=== PATIENT | male | born 1935 | race Caucasian/White ===

== ENCOUNTER 2017-12-19 13:26 | Outpatient (RCR) | payer MEDICARE, BC, SELFPAY | END 2018-02-09 13:05 | disposition home or self-care (01) | LOC: PT 13:26 | PROVIDERS: Family Provider Internal Medicine | DX: Z95.5 Presence of coronary angioplasty implant and graft (principal) | CPT/HCPCS: 93798 ==

== ENCOUNTER → 2018-04-17 09:50 | Outpatient (CLI) | payer MEDICARE, BC, SELFPAY ==
[2018-04-17 10:06] LABS: Basophils # 0.1 K/mm3 (0-0.2); Basophils % 0.9 % (0.1-2.0); Eosinophils # 0.3 K/mm3 (0.0-0.4); Eosinophils % 4.6 % (0.1-12.0); Hematocrit 41.6 % (42.0-52.0); Hemoglobin 13.4 g/dL (14.1-18.0); Lymphocytes # 1.1 K/mm3 (0.7-4.5); Lymphocytes % 17.1 K/mm3 (10-50); Mean Corpuscular HGB Conc 32.1 g/dL (31.8-35.4); Mean Corpuscular Volume 93.4 fl (80-94); Mean Platelet Volume 7.8 fl (7.4-10.4); Monocytes # 0.4 K/mm3 (0.1-1.0); Monocytes % 5.5 % (1.7-9.3); Neutrophils # 4.7 K/mm3 (1.8-7.8); Neutrophils % 71.9 % (37.0-80.0); Platelet Count 199 K/mm3 (142-424); Red Blood Count 4.45 M/mm3 (4.60-6.20); White Blood Count 6.6 K/mm3 (4.8-10.8)
--- NOTE | 2018-04-17 10:19 | XR_ITS ---
XR chest 2V HISTORY: Shortness of air, smoker ITS.REASON: SOB, CP, ASCAD ORDERING PHYSICIAN: Raul Capone PATIENT AGE: 82 years COMPARISON: 08/12/2016 FINDINGS: The cardiomediastinal silhouette and pulmonary vascularity are within normal limits. Cardiac bipolar pacemaker remains in place The lungs are clear without infiltrates, suspicious nodules, or pleural effusions. There is ankylosis of the thoracic spine No acute bony abnormalities. IMPRESSION: No change with no acute finding
[2018-04-17 10:21] LABS: Anion Gap 15.9 mEq/L (5-15); Blood Urea Nitrogen 28 mg/dL (7-18); Calcium 9.6 mg/dL (8.5-10.1); Carbon Dioxide 24 mmol/L (21.0-32.0); Chloride 104 mmol/L (98-107); Creatinine,Serum 2.23 mg/dL (0.70-1.30); Estimated Glomerular Filt Rate 28 ml/min (>60); GFR (African American) 34 ML/MIN (>60); Glucose 189 mg/dL (74-106); Potassium 4.9 mmoL/L (3.5-5.1); Sodium 139 mmol/L (136-145); Troponin I < 0.02 ng/ml (0.00-0.06)
== END ==
PROVIDERS: PCP Internal Medicine; Visit Provider Internal Medicine
DX: R06.02 Shortness of breath (principal); R07.9 Chest pain, unspecified; I25.10 Atherosclerotic heart disease of native coronary artery without angina pectoris
CPT/HCPCS: 36415; 71046; 80048; 83880; 84484; 85025; 93005

== ENCOUNTER → 2018-07-06 14:21 | Outpatient (CLI) | payer MEDICARE, BC, SELFPAY ==
--- NOTE | 2018-07-06 14:30 | XR_ITS ---
XR chest 2V HISTORY: ITS.REASON: COUGH, SOB,WEAKNESS, DM II ORDERING PHYSICIAN: Raul Capone PATIENT AGE: 82 years COMPARISON: 04/17/2018 FINDINGS: The cardiomediastinal silhouette and pulmonary vascularity are within normal limits. Bipolar pacemaker is present from left subclavian approach. Lungs are clear bilaterally. There is ankylosis of the thoracic spine.. IMPRESSION: No acute finding
[2018-07-06 14:38] LABS: Basophils # 0.1 K/mm3 (0-0.2); Basophils % 1.1 % (0.1-2.0); Eosinophils # 0.3 K/mm3 (0.0-0.4); Eosinophils % 5.2 % (0.1-12.0); Hematocrit 25.3 % (42.0-52.0); Lymphocytes # 1.1 K/mm3 (0.7-4.5); Lymphocytes % 20.1 % (10-50); Mean Corpuscular HGB Conc 30.7 g/dL (31.8-35.4); Mean Corpuscular Hemoglobin 29.8 pg (27.0-31.2); Mean Corpuscular Volume 97.3 fl (80-94); Mean Platelet Volume 8.9 fl (7.4-10.4); Monocytes # 0.4 K/mm3 (0.1-1.0); Monocytes % 7.3 % (1.7-9.3); Neutrophils # 3.7 K/mm3 (1.8-7.8); Neutrophils % 66.2 % (37.0-80.0); Platelet Count 224 K/mm3 (142-424); Red Cell Distribution Width 16.9 % (11.5-17.5); White Blood Count 5.6 K/mm3 (4.8-10.8)
[2018-07-06 14:41] LABS: Hemoglobin 7.7 g/dL (14.1-18.0)
[2018-07-06 15:16] LABS: Alanine Aminotransferase 31 U/L (12-78); Albumin Level 3.8 gm/dL (3.4-5.0); Albumin/Globulin Ratio 1.1 (1.1-1.8); Alkaline Phosphatase 76 U/L (46-116); Anion Gap 17.1 mEq/L (5-15); Aspartate Amino Transferase 21 U/L (15-37); Bilirubin,Total 0.7 mg/dL (0.2-1.0); Blood Urea Nitrogen 33 mg/dL (7-18); Calcium 8.8 mg/dL (8.5-10.1); Carbon Dioxide 21 mmol/L (21.0-32.0); Chloride 106 mmol/L (98-107); Creatinine,Serum 2.13 mg/dL (0.70-1.30); Estimated Glomerular Filt Rate 30 ml/min (>60); GFR (African American) 36 ML/MIN (>60); Globulin 3.5 gm/dl (1.3-3.2); Glucose 162 mg/dL (74-106); Potassium 4.1 mmoL/L (3.5-5.1); Sodium 140 mmol/L (136-145); Total Protein,Serum 7.3 gm/dL (6.4-8.2)
[2018-07-06 15:17] LABS: Troponin I 0.65 ng/ml (0.00-0.06)
== END ==
PROVIDERS: Visit Provider Internal Medicine
DX: D64.9 Anemia, unspecified (principal)
CPT/HCPCS: 36415; 71046; 80053; 84484; 85025; 86850; 93005; P9016

== ENCOUNTER 2018-07-06 15:37 | Observation (INO) ==
--- NOTE | 2018-07-06 15:44 | Emergency Department Note ---
ED Disposition Clinical Impression: Blood loss anemia, Upper gastrointestinal hemorrhage, Elevated troponin Disposition: Still a Patient Condition on Discharge: Serious Referrals: Raul Capone [Primary Care Provider] - - Critical Care Critical Care Time: No Attestation: On 07/06/18, the high probability of a clinically significant, sudden or life threatening deterioration of the following system(s) required my full and direct attention, intervention and personal management. The time I documented below is in addition to time spent performing reported procedures but includes the following listed in this critical care notation. Medical Decision Making - Matthew Inquiry Pt receiving controlled substance: No Vital Signs: 07/06/18 15:37 07/06/18 16:14 Temperature 98.0 F Temperature Source Oral Pulse Rate [Apical] 73 85 Respiratory Rate 20 20 Blood Pressure [Right Arm] 143/70 H 131/69 Blood Pressure Mean [Right Arm] 94 89 Blood Pressure Source [Right Arm] Automatic Cuff Automatic Cuff Blood Pressure Position [Right Arm] Sitting Sitting 02 Sat by Pulse Oximetry 100 100 Oxygen Delivery Method Room Air Room Air - Lab Data Lab Results 07/06/18 16:15: Stool Occult Blood Positive A Orders (Tests/Meds): ED MEDICATIONS Discontinued Medications Generic Name Dose Route Start Last Admin Trade Name Freq PRN Reason Stop Dose Admin Pantoprazole Sodium 40 mg 07/06/18 17:14 07/06/18 17:15 Protonix 40mg Vial IV 07/06/18 17:15 40 mg ONCE ONE Administration Sodium Chloride 8 ml 07/06/18 17:14 07/06/18 17:15 Saline Flush 10ml Syringe IV 07/06/18 17:15 8 ml ONCE ONE Administration ORDERS Category Date Time Status Occult Blood,Stool Stat Lab 07/06/18 16:15 Ordered - ECG Data Tracing #1 EKG interpreted by Deonte Fletcher MD: Rhythm: Ventricular paced rhythm Rate: 79 No evidence of acute ischemia or injury - Physician Consults Physician Consulted: Bryon Time: 16:10 Reason -: Cardiology Eval/Care Comment/Response: Feels that the patient has troponin leak from stress from anemia. He would not plan any cardiac intervention. Patient had a cardiac cath last summer that showed occlusion of his distal LAD. Recommends holding Xarelto and Brilinta and treating with aspirin only for now. Would be fine with patient being transferred to [facility] prior to transfusion since he is hemodynamically stable with respect to vital signs and blood loss is likely chronic. Discussed with patient. He would prefer to stay here since cardiac intervention is not planned. Additional Consult: Char Time: 17:10 Reason -: Admission Comment/Response: Agrees to admit the patient to the hospital. We discussed the patient's clinical information, including history, exam, laboratory and radiology results and ED course. Per hospital procedure, I will write temporary bridge inpatient orders on the patient. Specific orders requested by the admitting physician: Type and crossmatch for 2 units, but transfuse 1 unit. Consult surgery. Additional Consult: Jose Alfredo Time: 17:20 Reason -: Surgical Eval/Care Comment/Response: Will consult. Protonix twice daily. Timing of endoscopy will depend on his response to transfusion. General Adult HPI - General Stated complaint: elevated troponin Time Seen by Provider: 07/06/18 15:44 - History of Present Illness HPI narrative: Sent from Dr. Capone's office for elevated troponin and low hemoglobin. Patient has not been feeling well for 1 week. He has exertional dyspnea, fatigue, and jaw pain. No pain or dyspnea at rest. Black looking stool for 1 week. No vomiting of blood. No current chest pain. He has coronary artery disease, atrial fibrillation, pacemaker, stent placement. Dedicated Truck Driver is Dr. Qiu at [facility] and he wants him involved as soon as possible. He is on Brilinta and Xarelto. - Related Data Home Medications Medication Instructions Recorded Confirmed Amlodipine Besylate [Amlodipine 10 mg PO DAILY 07/06/18 07/06/18 10mg Tab] Carvedilol [Carvedilol 12.5mg Tab] 12.5 mg PO BID 07/06/18 07/06/18 Multivit-Min/FA/Lycopen/Lutein 1 each PO DAILY 07/06/18 07/06/18 [Centrum Silver Tablet] Niacin (Inositol Niacinate) 1,000 mg PO HS 07/06/18 07/06/18 [Niacin Flush Free 500 mg Cap] [place]-3S/Dha/Epa/Fish Oil [Fish 2 each PO BID 07/06/18 07/06/18 Oil 1,000 mg Softgel] Polyethylene Glycol 3350 [Miralax 17 gm PO DAILY 07/06/18 07/06/18 Powder] Rivaroxaban [Xarelto 15mg tablet] 15 mg PO HS 07/06/18 07/06/18 Rosuvastatin Calcium 10 mg PO HS 07/06/18 07/06/18 Ticagrelor [Brilinta 90mg Tablet] 90 mg PO BID 07/06/18 07/06/18 glipiZIDE [Glipizide ER] 5 mg PO DAILY 07/06/18 07/06/18 Allergies Allergy/AdvReac Type Severity Reaction Status Date / Time penicillin G [PENICILLIN G] Allergy Mild Verified 07/06/18 15:49 [facility] History - Hepatitis A Screen Attestation statement:: This patient has been screened for Hepatitis A risk factors. I have reviewed the patient's past medical history: Yes ROS Obtained: Yes All systems reviewed & no additional complaints - Constitutional Constitutional: Reports fatigue - Respiratory Respiratory: Yes dyspnea on exertion - Gastrointestinal Gastrointestingal: Reports: change in stool character. Denies: abdominal pain Physical Exam - General General appearance: alert, in no apparent distress - Head Head exam: atraumatic, normocephalic - Eye Eye exam: Present: normal appearance, PERRL, EOMI - ENT ENT exam: Present: mucous membranes moist - Neck Neck exam: Present: normal inspection, trachea midline - Chest Chest inspection: Present: normal inspection, symmetric chest wall rise - Respiratory Respiratory exam: Present: normal lung sounds bilaterally. Absent: respiratory distress - Cardiovascular Cardiovascular exam: Present: regular rate, normal rhythm, normal heart sounds - Abdominal Exam Abdominal exam: Present: soft. Absent: distention, tenderness, guarding - Rectal Exam comment: Dark stool - Extremities Exam Extremities exam: Present: normal inspection - Neurological Exam Neurological exam: Present: alert, oriented X3 - Psychiatric Psychiatric exam: Present: normal affect, normal mood - Skin Skin exam: Present: warm, dry, pallor
--- NOTE | 2018-07-06 18:15 | History & Physical Report ---
*Admission Date: 07/06/18 *Chief complaint: SOA, anemia *History of present illness: Mr. Ny is an 82-year-old male who presented to the ER after seeing his primary care doctor today. He next saw Dr. Capone in his office where the patient had lab obtained due to complaint of shortness of breath worse over the past week. Patient noted to have elevated troponin and anemia. Additionally guaiac stool was obtained and found to be positive. Patient has had some referred pains in his jaw and fatigue. No dyspnea at rest, symptoms resolved with rest. Denies any vomiting, hematemesis, hematochezia, active chest pain on admission. Does have significant history of coronary artery disease complicated by A. fib, pacemaker, stent placements. On Brilinta and Xarelto. Sees Dr. Frederick for cardiology and the patient asked he be involved in his care. Cardiology and surgery consulted while still in the ED. Patient was typed and screened, transfusion initiated. Started on Protonix. Brilinta and Xarelto held. Otherwise hemodynamically stable. [facility] History Medical History: Reports:: Diabetes Mellitus Type 2 Denies:: Diabetes Mellitus Type 1 - *Social History Smoking Status: Current every day smoker Tobacco Type: cigarettes Alcohol Intake: never Travel in the last 8 weeks: None - Psychiatric History Expresses thoughts of harming self/others: None Suicide Plan Description: No Plan Meds Home Medications Medication Instructions Recorded Confirmed Type Amlodipine Besylate [Amlodipine 10 mg PO DAILY 07/06/18 07/06/18 History 10mg Tab] Carvedilol [Carvedilol 12.5mg Tab] 12.5 mg PO BID 07/06/18 07/06/18 History Multivit-Min/FA/Lycopen/Lutein 1 each PO DAILY 07/06/18 07/06/18 History [Centrum Silver Tablet] Niacin (Inositol Niacinate) 1,000 mg PO HS 07/06/18 07/06/18 History [Niacin Flush Free 500 mg Cap] [place]-3S/Dha/Epa/Fish Oil [Fish 2 each PO BID 07/06/18 07/06/18 History Oil 1,000 mg Softgel] Polyethylene Glycol 3350 [Miralax 17 gm PO DAILY 07/06/18 07/06/18 History Powder] Rivaroxaban [Xarelto 15mg tablet] 15 mg PO HS 07/06/18 07/06/18 History Rosuvastatin Calcium 10 mg PO HS 07/06/18 07/06/18 History Ticagrelor [Brilinta 90mg Tablet] 90 mg PO BID 07/06/18 07/06/18 History glipiZIDE [Glipizide ER] 5 mg PO DAILY 07/06/18 07/06/18 History Allergies Allergy/AdvReac Type Severity Reaction Status Date / Time penicillin G [PENICILLIN G] Allergy Mild Verified 07/06/18 15:49 Exam Vital signs and Labs for Last 24 Hours: Temp Pulse Resp BP Pulse Ox 97.7 F 74 18 127/70 99 07/06/18 18:10 07/06/18 18:10 07/06/18 18:10 07/06/18 18:10 07/06/18 18:10 Laboratory Results - last 24 hr 07/06/18 16:15: Stool Occult Blood Positive A I & O for Last 24 hours: Intake & Output 07/03/18 07/04/18 07/05/18 07/06/18 23:59 23:59 23:59 23:59 Intake Total 0 / 0 Balance 0 / 0 Weight 96.162 kg
--- NOTE | 2018-07-06 18:55 | History & Physical Report ---
*Admission Date: 07/06/18 *Chief complaint: Dyspnea with exertion *History of present illness: Mr. Ny is an 82-year-old male who presented to the ER after seeing his primary care doctor today. He next saw Dr. Capone in his office where the patient had lab obtained due to complaint of shortness of breath worse over the past week. Patient noted to have elevated troponin and anemia. Additionally guaiac stool was obtained and found to be positive. Patient has had some referred pains in his jaw and fatigue. No dyspnea at rest, symptoms resolved with rest. Denies any vomiting, hematemesis, hematochezia, active chest pain on admission. Does have significant history of coronary artery disease complicated by A. fib, pacemaker, stent placements. On Brilinta and Xarelto. Sees Dr. Frederick for cardiology and the patient asked he be involved in his care. Cardiology and surgery consulted while still in the ED. Patient was typed and screened, transfusion initiated. Started on Protonix. Brilinta and Xarelto held. Otherwise hemodynamically stable. [facility] History I have reviewed the patient's past medical history: Yes Medical History: Reports:: Atrial Fibrillation, Diabetes Mellitus Type 2, Hypertension, Internal Pacemaker Denies:: Cancer, Diabetes Mellitus Type 1, MRSA Have you ever received a pneumonia vaccine?: Yes Have you received a flu vaccine this season?: Yes Other Medical History: Reports: Anemia Other Surgeries: Yes: Coronary Stent, Pacemaker Amputation: No Fractures: No - *Social History Smoking Status: Current every day smoker Tobacco Type: cigarettes Alcohol Intake: never Occupational Status: retired Housing: house Travel in the last 8 weeks: None - Psychiatric History Expresses thoughts of harming self/others: None Suicide Plan Description: No Plan Review of Systems - Review of Systems Review of systems:: pertinent systems reviewed and negative unless documented below Meds Home Medications Medication Instructions Recorded Confirmed Type Amlodipine Besylate [Amlodipine 10 mg PO DAILY 07/06/18 07/06/18 History 10mg Tab] Carvedilol [Carvedilol 12.5mg Tab] 12.5 mg PO BID 07/06/18 07/06/18 History Hydrocodone/Acetaminophen 1 each PO TID PRN 07/06/18 07/06/18 History [Hydrocodon-Acetaminoph 7.5-325] Multivit-Min/FA/Lycopen/Lutein 1 each PO DAILY 07/06/18 07/06/18 History [Centrum Silver Tablet] Niacin (Inositol Niacinate) 1,000 mg PO HS 07/06/18 07/06/18 History [Niacin Flush Free 500 mg Cap] [place]-3S/Dha/Epa/Fish Oil [Fish 2 each PO BID 07/06/18 07/06/18 History Oil 1,000 mg Softgel] Polyethylene Glycol 3350 [Miralax 17 gm PO DAILY 07/06/18 07/06/18 History Powder] Rivaroxaban [Xarelto 15mg tablet] 15 mg PO HS 07/06/18 07/06/18 History Rosuvastatin Calcium 10 mg PO HS 07/06/18 07/06/18 History Ticagrelor [Brilinta 90mg Tablet] 90 mg PO BID 07/06/18 07/06/18 History glipiZIDE [Glipizide ER] 5 mg PO DAILY 07/06/18 07/06/18 History Allergies Allergy/AdvReac Type Severity Reaction Status Date / Time penicillin G [PENICILLIN G] Allergy Mild Verified 07/06/18 15:49 Exam Vital signs and Labs for Last 24 Hours: Temp Pulse Resp BP Pulse Ox 97.3 F L 75 18 139/71 100 07/06/18 18:35 07/06/18 18:35 07/06/18 18:35 07/06/18 18:35 07/06/18 18:35 Laboratory Results - last 24 hr 07/06/18 16:15: Stool Occult Blood Positive A I & O for Last 24 hours: Intake & Output 07/03/18 07/04/18 07/05/18 07/06/18 23:59 23:59 23:59 23:59 Intake Total 0 / 0 Balance 0 / 0 Weight 97.154 kg - *Routine HEENT Exam Head: Present: normocephalic, atraumatic Eye: Present: EOMI, PERRL ENT: Present: mucous membranes moist, dentition normal - *Routine Neck Exam Present: supple, full ROM. Absent: JVD, lymphadenopathy - *Routine Respiratory Exam Present: CTA bilaterally. Absent: rales, wheezes, crackles - *Routine Cardiovascular Exam Present: RRR. Absent: murmur Comments: Paced rhythm - *Routine Abdominal Exam Present: soft, normoactive bowel sounds. Absent: tenderness - *Routine Rectal Exam Patient deferred: visual exam - *Routine Exam Patient deferred: penile exam - *Routine Extremities Exam Present: pulses intact, normal capillary refill. Absent: cyanosis, clubbing, edema - *Routine Skin Exam Present: intact. Absent: cyanosis, erythema - *Routine Neurological Exam Present: alert, oriented X3. Absent: altered mental status - Routine Psychiatric Exam Present: normal affect Assessment and Plan (1) Gastrointestinal bleeding Current visit: Yes Status: Acute Category: Medical Code(s): K92.2 - Gastrointestinal hemorrhage, unspecified (2) Coronary artery disease Current visit: Yes Status: Chronic Qualifiers: Coronary Disease-Associated Artery/Lesion type: [place] artery [place] vs. transplanted heart: [place] heart Associated angina: with stable angina Qualified Code(s): I25.118 - Atherosclerotic heart disease of [place] coronary artery with other forms of angina pectoris Category: Medical Code(s): I25.10 - Atherosclerotic heart disease of [place] coronary artery without angina pectoris (3) Pacemaker-dependent due to [place] cardiac rhythm insufficient to support life Current visit: Yes Status: Chronic Category: Medical Code(s): I49.8 - Other specified cardiac arrhythmias; Z95.0 - Presence of cardiac pacemaker Present on admission. (4) Atrial fibrillation Current visit: Yes Status: Chronic Qualifiers: Atrial fibrillation type: chronic Qualified Code(s): I48.2 - Chronic atrial fibrillation Category: Medical Code(s): I48.91 - Unspecified atrial fibrillation Stable. Present on admission (5) Blood loss anemia Current visit: Yes Status: Acute Category: Medical Code(s): D50.0 - Iron deficiency anemia secondary to blood loss (chronic) Unknown source though suspect GI. Patient on antiplatelet therapy and Xarelto. Reportedly had hemoglobin in the 12's early May. Surgery consulted. Holding Xarelto and Brilinta. Plan for EGD in the coming days. -Transfused 1 unit, crossmatched 1 additional. Posttransfusion H&H pending. -Goal 8.5-9 for hemoglobin (6) Elevated troponin Current visit: Yes Status: Acute Category: Medical Code(s): R74.8 - Abnormal levels of other serum enzymes Type II NSTEMI due to anemia. Serial troponin stable -Repeat troponin if patient becomes symptomatic -Suspect improvement after transfusion - Assessment and plan all Dx Assessment and Plan for all problems:: 82-year-old male with elevated troponins due to anemia and supply demand mismatch. Anemia suspected to be from a GI bleed, likely slow. Currently being transfused. Started Protonix. Holding blood thinners. Surgery consulted. Monitor on telemetry. Condition guarded. Requiring inpatient management at this time for symptom treatment and further workup.
[2018-07-06 21:09] LABS: Hemoglobin 7.7 g/dL (14.1-18.0)
[2018-07-06 21:10] LABS: Hematocrit 24.1 % (42.0-52.0)
[2018-07-07 02:58] LABS: Hemoglobin 8.7 g/dL (14.1-18.0)
[2018-07-07 02:59] LABS: Hematocrit 26.2 % (42.0-52.0)
[2018-07-07 06:41] LABS: Basophils # 0.1 K/mm3 (0-0.2); Eosinophils # 0.2 K/mm3 (0.0-0.4); Eosinophils % 4.3 % (0.1-12.0); Hematocrit 27.6 % (42.0-52.0); Lymphocytes % 19.7 % (10-50); Mean Corpuscular HGB Conc 32.6 g/dL (31.8-35.4); Mean Corpuscular Hemoglobin 29.9 pg (27.0-31.2); Mean Corpuscular Volume 91.8 fl (80-94); Mean Platelet Volume 8.5 fl (7.4-10.4); Monocytes # 0.4 K/mm3 (0.1-1.0); Neutrophils # 3.5 K/mm3 (1.8-7.8); Neutrophils % 66.9 % (37.0-80.0); Platelet Count 183 K/mm3 (142-424); Red Cell Distribution Width 18.3 % (11.5-17.5); White Blood Count 5.3 K/mm3 (4.8-10.8)
[2018-07-07 06:57] LABS: Albumin Level 3.3 gm/dL (3.4-5.0); Albumin/Globulin Ratio 1.1 (1.1-1.8); Anion Gap 16.1 mEq/L (5-15); Bilirubin,Total 0.9 mg/dL (0.2-1.0); Calcium 8.4 mg/dL (8.5-10.1); Potassium 4.1 mmoL/L (3.5-5.1); Total Protein,Serum 6.3 gm/dL (6.4-8.2)
--- NOTE | 2018-07-07 09:16 | Pharmacy Consult Notes ---
[facility] Pharmacy VTE Monitoring - Patient Demographics Admission date: 07/06/18 Report Date: 07/07/18 Time: 09:16 Allergies/Adverse Reactions: Patient Allergies penicillin G [PENICILLIN G] Allergy (Mild, Verified 07/06/18 15:49) Height: 1.8 m Weight: 97.154 kg Patient Problems: Current Active Problems Blood loss anemia (Acute) Upper gastrointestinal hemorrhage (Acute) Elevated troponin (Acute) Gastrointestinal bleeding (Acute) Coronary artery disease (Chronic) Pacemaker-dependent due to [place] cardiac rhythm insufficient to support life (Chronic) Atrial fibrillation (Chronic) - VTE Risk Labs: VTE Related Lab Results Hgb 9.0 g/dL (14.1-18.0) L 07/07/18 06:34 Hct 27.6 % (42.0-52.0) L 07/07/18 06:34 Plt Count 183 K/mm3 (142-424) 07/07/18 06:34 BUN 28 mg/dL (7-18) H 07/07/18 06:34 Creatinine 1.96 mg/dL (0.70-1.30) H 07/07/18 06:34 Estimated Creat Clear 41 mL/min (50-200) 07/07/18 06:34 VTE Score: 2 - Prophylaxis VTE Prophylaxis Ordered?: Yes Types of VTE Prophylaxis: TEDS Knee High Location of Applied Device: Bilateral Lower Extremeties
--- NOTE | 2018-07-07 09:19 | Consult Report ---
*Admission Date: 07/06/18 *Chief complaint: GI blood loss *History of present illness: This is an 81-year-old gentleman seen in consultation after presenting to the emergency department with shortness of air. He was found to be significantly anemic and his stool was heme positive. Surgical service was consulted for evaluation regarding gastrointestinal hemorrhage. Please see HPI from admission H&P forwarded below: Mr. Ny is an 82-year-old male who presented to the ER after seeing his primary care doctor today. He next saw Dr. Capone in his office where the patient had lab obtained due to complaint of shortness of breath worse over the past week. Patient noted to have elevated troponin and anemia. Additionally guaiac stool was obtained and found to be positive. Patient has had some referred pains in his jaw and fatigue. No dyspnea at rest, symptoms resolved with rest. Denies any vomiting, hematemesis, hematochezia, active chest pain on admission. Does have significant history of coronary artery disease complicated by A. fib, pacemaker, stent placements. On Brilinta and Xarelto. Sees Dr. Frederick for cardiology and the patient asked he be involved in his care. Cardiology and surgery consulted while still in the ED. Patient was typed and screened, transfusion initiated. Started on Protonix. Brilinta and Xarelto held. Otherwise hemodynamically stable. Review of Systems - Constitutional Denies fever(s) - Eyes Denies change in vision - ENT Denies change in voice - *Cardiovascular Reports shortness of breath - *Respiratory Denies cough - *Gastrointestinal Denies abdominal pain - Psychiatric Denies anxiety [facility] History Medical History: Reports:: Atrial Fibrillation, Diabetes Mellitus Type 2, Hypertension, Internal Pacemaker Denies:: Cancer, Diabetes Mellitus Type 1, MRSA Have you ever received a pneumonia vaccine?: Yes Have you received a flu vaccine this season?: Yes Other Medical History: Reports: Anemia Other Surgeries: Yes: Coronary Stent, Pacemaker Amputation: No Fractures: No - *Social History Smoking Status: Current every day smoker Tobacco Type: cigarettes Alcohol Intake: never Occupational Status: retired Housing: house Travel in the last 8 weeks: None - Psychiatric History Expresses thoughts of harming self/others: None Suicide Plan Description: No Plan Meds Home Medications Medication Instructions Recorded Confirmed Type Amlodipine Besylate [Amlodipine 10 mg PO DAILY 07/06/18 07/06/18 History 10mg Tab] Carvedilol [Carvedilol 12.5mg Tab] 12.5 mg PO BID 07/06/18 07/06/18 History Hydrocodone/Acetaminophen 2 each PO DAILY 07/06/18 07/07/18 History [Hydrocodon-Acetaminoph 7.5-325] Multivit-Min/FA/Lycopen/Lutein 1 each PO DAILY 07/06/18 07/06/18 History [Centrum Silver Tablet] [place]-3S/Dha/Epa/Fish Oil [Fish 2 each PO BID 07/06/18 07/06/18 History Oil 1,000 mg Softgel] Polyethylene Glycol 3350 [Miralax 17 gm PO DAILY 07/06/18 07/06/18 History Powder] Rivaroxaban [Xarelto 15mg tablet] 15 mg PO HS 07/06/18 07/06/18 History Ticagrelor [Brilinta 90mg Tablet] 90 mg PO BID 07/06/18 07/06/18 History glipiZIDE [Glipizide ER] 5 mg PO DAILY 07/06/18 07/06/18 History Acetaminophen [Tylenol 500mg 1,000 mg PO Q4HP PRN 07/07/18 07/07/18 History tablet] Hydrocodone/Acetaminophen 1 each PO HSP PRN 07/07/18 07/07/18 History [Hydrocodon-Acetaminoph 7.5-325] Niacin 1,000 mg PO HS 07/07/18 07/07/18 History Rosuvastatin Calcium 10 mg PO HS 07/07/18 07/07/18 History Allergies Allergy/AdvReac Type Severity Reaction Status Date / Time penicillin G [PENICILLIN G] Allergy Mild Verified 07/06/18 15:49 Exam Vital signs and Labs for Last 24 Hours: Temp Pulse Resp BP Pulse Ox 97.7 F 64 15 124/75 100 07/07/18 08:00 07/07/18 08:00 07/07/18 08:00 07/07/18 08:00 07/07/18 08:00 Laboratory Results - last 24 hr 07/06/18 16:15: Stool Occult Blood Positive A 07/06/18 18:07: Troponin I 0.61 H 07/06/18 20:53: Hgb 7.7 L*, Hct 24.1 L 07/06/18 21:20: POC Glucose 183 H 07/07/18 02:50: Hgb 8.7 L D, Hct 26.2 L 07/07/18 05:59: POC Glucose 145 H 07/07/18 06:34: WBC 5.3, RBC 3.00 L, Hgb 9.0 L, Hct 27.6 L, MCV 91.8, MCH 29.9, MCHC 32.6, RDW 18.3 H, Plt Count 183, MPV 8.5, Neut % (Auto) 66.9, Lymph % (Auto) 19.7, [place] % (Auto) 8.0, Eos % (Auto) 4.3, Baso % (Auto) 1.0, Neut # (Auto) 3.5, Lymph # (Auto) 1.0, [place] # (Auto) 0.4, Eos # (Auto) 0.2, Baso # (Auto) 0.1 07/07/18 06:34: Sodium 138, Potassium 4.1, Chloride 107, Carbon Dioxide 19 L, Anion Gap 16.1 H, BUN 28 H, Creatinine 1.96 H, Estimated Creat Clear 41, Estimated GFR 33 L, Est GFR ( Amer) 40 L, Glucose 159 H, Calcium 8.4 L, Total Bilirubin 0.9, AST 19, ALT 25, Alkaline Phosphatase 67, Total Protein 6.3 L, Albumin 3.3 L D, Globulin 3.0, Albumin/Globulin Ratio 1.1 I & O for Last 24 hours: Intake & Output 07/04/18 07/05/18 07/06/18 07/07/18 11:59 11:59 11:59 11:59 Intake Total 240 / 240 Balance 240 / 240 Weight 214 lb 3 oz - Constitutional no acute distress - *Routine Respiratory Exam Absent: respiratory distress - *Routine Cardiovascular Exam Comments: currently regular - *Routine Abdominal Exam Present: soft Results - Labs 07/07/18 06:34 07/07/18 06:34 Laboratory Results - last 24 hr 07/06/18 16:15: Stool Occult Blood Positive A 07/06/18 18:07: Troponin I 0.61 H 07/06/18 20:53: Hgb 7.7 L*, Hct 24.1 L 07/06/18 21:20: POC Glucose 183 H 07/07/18 02:50: Hgb 8.7 L D, Hct 26.2 L 07/07/18 05:59: POC Glucose 145 H 07/07/18 06:34: WBC 5.3, RBC 3.00 L, Hgb 9.0 L, Hct 27.6 L, MCV 91.8, MCH 29.9, MCHC 32.6, RDW 18.3 H, Plt Count 183, MPV 8.5, Neut % (Auto) 66.9, Lymph % (Auto) 19.7, [place] % (Auto) 8.0, Eos % (Auto) 4.3, Baso % (Auto) 1.0, Neut # (Auto) 3.5, Lymph # (Auto) 1.0, [place] # (Auto) 0.4, Eos # (Auto) 0.2, Baso # (Auto) 0.1 07/07/18 06:34: Sodium 138, Potassium 4.1, Chloride 107, Carbon Dioxide 19 L, Anion Gap 16.1 H, BUN 28 H, Creatinine 1.96 H, Estimated Creat Clear 41, Estimated GFR 33 L, Est GFR ( Amer) 40 L, Glucose 159 H, Calcium 8.4 L, Total Bilirubin 0.9, AST 19, ALT 25, Alkaline Phosphatase 67, Total Protein 6.3 L, Albumin 3.3 L D, Globulin 3.0, Albumin/Globulin Ratio 1.1 Assessment and Plan (1) Gastrointestinal bleeding Current visit: Yes Status: Acute Category: Medical Code(s): K92.2 - Gastrointestinal hemorrhage, unspecified Continue to hold Xarelto (if cleared by primary) PPI/Carafate Esophagogastroduodenoscopy in the very near future Obtain report from most recent colonoscopy (may require repeat) Currently, the plan is for discharge home with close outpatient follow-up. He is to have a repeat hemoglobin and outpatient follow-up in 3 days and will likely undergo endoscopy within the next week. (2) Coronary artery disease Current visit: Yes Status: Chronic Qualifiers: Coronary Disease-Associated Artery/Lesion type: [place] artery [place] vs. transplanted heart: [place] heart Associated angina: with stable angina Qualified Code(s): I25.118 - Atherosclerotic heart disease of [place] coronary artery with other forms of angina pectoris Category: Medical Code(s): I25.10 - Atherosclerotic heart disease of [place] coronary artery without angina pectoris (3) Pacemaker-dependent due to [place] cardiac rhythm insufficient to support life Current visit: Yes Status: Chronic Category: Medical Code(s): I49.8 - Other specified cardiac arrhythmias; Z95.0 - Presence of cardiac pacemaker (4) Atrial fibrillation Current visit: Yes Status: Chronic Qualifiers: Atrial fibrillation type: chronic Qualified Code(s): I48.2 - Chronic atrial fibrillation Category: Medical Code(s): I48.91 - Unspecified atrial fibrillation (5) Blood loss anemia Current visit: Yes Status: Acute Category: Medical Code(s): D50.0 - Iron deficiency anemia secondary to blood loss (chronic) (6) Elevated troponin Current visit: Yes Status: Acute Category: Medical Code(s): R74.8 - Abnormal levels of other serum enzymes
--- NOTE | 2018-07-07 09:52 | Discharge Summary ---
General - General Admission date:: 07/06/18 Discharge date: 07/07/18 HPI HPI: Mr. Ny is an 82-year-old male who presented to the ER after seeing his primary care doctor today. He next saw Dr. Capone in his office where the patient had lab obtained due to complaint of shortness of breath worse over the past week. Patient noted to have elevated troponin and anemia. Additionally guaiac stool was obtained and found to be positive. Patient has had some referred pains in his jaw and fatigue. No dyspnea at rest, symptoms resolved with rest. Denies any vomiting, hematemesis, hematochezia, active chest pain on admission. Does have significant history of coronary artery disease complicated by A. fib, pacemaker, stent placements. On Brilinta and Xarelto. Sees Dr. Frederick for cardiology and the patient asked he be involved in his care. Cardiology and surgery consulted while still in the ED. Patient was typed and screened, transfusion initiated. Started on Protonix. Brilinta and Xarelto held. Otherwise hemodynamically stable. Hospital Course Hospital Course: Admitted to medicine for transfusion and serial trops. Responded to 2U appropriately. Xarelto and Brilinta held on admission. No episodes of bleeding or black stools. Remained hemodynamically stable with no further bleeding. Surgery consulted for EGD. As patient has remained stable, tolerating PO intake, plan for outpatient scopes this week after holding APT and NOAC for ~5 days. No bleeding, SOA, CP, WANG, rash, N/V/D. Chads-Vasc: 6 with 9.7% risk of TIA/STROKE, though not clear patient has persistent Afib Has-Bled: 4 with 8.9% risk of re bleeding. Given the above, stable Hgb on just Brilinta, and unknown source/chronicity of afib will hold Xarelto. Feel risk outweighs benefit at this time. Continue Just Brilinta with stent placed <1yr ago. Objective Vital signs: Temp Pulse Resp BP Pulse Ox 97.7 F 64 15 124/75 100 07/07/18 08:00 07/07/18 08:00 07/07/18 08:00 07/07/18 08:00 07/07/18 08:00 Narrative: - *Routine HEENT Exam Head: Present: normocephalic, atraumatic Eye: Present: EOMI, PERRL ENT: Present: mucous membranes moist, dentition normal - *Routine Neck Exam Present: supple, full ROM. Absent: JVD, lymphadenopathy - *Routine Respiratory Exam Present: CTA bilaterally. Absent: rales, wheezes, crackles - *Routine Cardiovascular Exam Present: RRR. Absent: murmur Comments: Paced rhythm - *Routine Abdominal Exam Present: soft, normoactive bowel sounds. Absent: tenderness - *Routine Rectal Exam Patient deferred: visual exam - *Routine Exam Patient deferred: penile exam - *Routine Extremities Exam Present: pulses intact, normal capillary refill. Absent: cyanosis, clubbing, edema - *Routine Skin Exam Present: intact. Absent: cyanosis, erythema - *Routine Neurological Exam Present: alert, oriented X3. Absent: altered mental status - Routine Psychiatric Exam Present: normal affect Results Labs on day of discharge: Labs from last 24 hours 07/07/18 07/07/18 07/07/18 06:34 06:34 05:59 WBC 5.3 RBC 3.00 L Hgb 9.0 L Hct 27.6 L MCV 91.8 MCH 29.9 MCHC 32.6 RDW 18.3 H Plt Count 183 MPV 8.5 Neut % (Auto) 66.9 Lymph % (Auto) 19.7 [place] % (Auto) 8.0 Eos % (Auto) 4.3 Baso % (Auto) 1.0 Neut # (Auto) 3.5 Lymph # (Auto) 1.0 [place] # (Auto) 0.4 Eos # (Auto) 0.2 Baso # (Auto) 0.1 Sodium 138 Potassium 4.1 Chloride 107 Carbon Dioxide 19 L Anion Gap 16.1 H BUN 28 H Creatinine 1.96 H Estimated Creat Clear 41 Estimated GFR 33 L Est GFR ( Amer) 40 L Glucose 159 H POC Glucose 145 H Calcium 8.4 L Total Bilirubin 0.9 AST 19 ALT 25 Alkaline Phosphatase 67 Troponin I Total Protein 6.3 L Albumin 3.3 L D Globulin 3.0 Albumin/Globulin Ratio 1.1 Stool Occult Blood 07/07/18 07/06/18 07/06/18 02:50 21:20 20:53 WBC RBC Hgb 8.7 L D 7.7 L* Hct 26.2 L 24.1 L MCV MCH MCHC RDW Plt Count MPV Neut % (Auto) Lymph % (Auto) [place] % (Auto) Eos % (Auto) Baso % (Auto) Neut # (Auto) Lymph # (Auto) [place] # (Auto) Eos # (Auto) Baso # (Auto) Sodium Potassium Chloride Carbon Dioxide Anion Gap BUN Creatinine Estimated Creat Clear Estimated GFR Est GFR ( Amer) Glucose POC Glucose 183 H Calcium Total Bilirubin AST ALT Alkaline Phosphatase Troponin I Total Protein Albumin Globulin Albumin/Globulin Ratio Stool Occult Blood 07/06/18 07/06/18 18:07 16:15 WBC RBC Hgb Hct MCV MCH MCHC RDW Plt Count MPV Neut % (Auto) Lymph % (Auto) [place] % (Auto) Eos % (Auto) Baso % (Auto) Neut # (Auto) Lymph # (Auto) [place] # (Auto) Eos # (Auto) Baso # (Auto) Sodium Potassium Chloride Carbon Dioxide Anion Gap BUN Creatinine Estimated Creat Clear Estimated GFR Est GFR ( Amer) Glucose POC Glucose Calcium Total Bilirubin AST ALT Alkaline Phosphatase Troponin I 0.61 H Total Protein Albumin Globulin Albumin/Globulin Ratio Stool Occult Blood Positive A DS: Diagnosis - Discharge Diagnosis (1) Gastrointestinal bleeding Status: Acute (2) Coronary artery disease Status: Chronic (3) Pacemaker-dependent due to [place] cardiac rhythm insufficient to support life Status: Chronic (4) Atrial fibrillation Status: Chronic (5) Blood loss anemia Status: Acute (6) Elevated troponin Status: Acute Discharge Plan - Patient Discharge Instructions ACTIVITY: Ambulate as tolerated DIET: continue same diet Patient Instructions: Anemia, DI for Gastrointestinal Bleeding - Follow up Plan Follow up with: Manuel Veliz MD [Staff Physician] - 07/10/18 Raul Capone [Primary Care Provider] - 1 week Disposition: Home, Self-Fdc Medications: Home Medications Medication Instructions Recorded Confirmed Type Amlodipine Besylate [Amlodipine 10 mg PO DAILY 07/06/18 07/06/18 History 10mg Tab] Carvedilol [Carvedilol 12.5mg Tab] 12.5 mg PO BID 07/06/18 07/06/18 History Multivit-Min/FA/Lycopen/Lutein 1 each PO DAILY 07/06/18 07/06/18 History [Centrum Silver Tablet] [place]-3S/Dha/Epa/Fish Oil [Fish 2 each PO BID 07/06/18 07/06/18 History Oil 1,000 mg Softgel] Polyethylene Glycol 3350 [Miralax 17 gm PO DAILY 07/06/18 07/06/18 History Powder] Ticagrelor [Brilinta 90mg Tablet] 90 mg PO BID 07/06/18 07/06/18 History glipiZIDE [Glipizide ER] 5 mg PO DAILY 07/06/18 07/06/18 History Acetaminophen [Tylenol 500mg 1,000 mg PO Q4HP PRN 07/07/18 07/07/18 History tablet] Hydrocodone/Acetaminophen 1 each PO HSP PRN 07/07/18 07/07/18 History [Hydrocodone-Acetamin 7.5-325] Niacin 1,000 mg PO HS 07/07/18 07/07/18 History Pantoprazole Sodium [Protonix 40mg 40 mg PO BID 30 Days #60 tab 07/07/18 Rx tablet] Pantoprazole Sodium [Protonix 40mg 40 mg PO BID 30 Days #60 tab 07/07/18 Rx tablet] Rosuvastatin Calcium 10 mg PO HS 07/07/18 07/07/18 History Sucralfate [Carafate 1gm Tab] 1 gm PO ACHS 30 Days #120 tablet 07/07/18 Rx Sucralfate [Carafate 1gm Tab] 1 gm PO ACHS 30 Days #120 tablet 07/07/18 Rx Prescriptions/Medication Reconciliation: New Sucralfate [Carafate 1gm Tab] 1 gm PO ACHS 30 Days #120 tablet Sucralfate [Carafate 1gm Tab] 1 gm PO ACHS 30 Days #120 tablet Pantoprazole Sodium [Protonix 40mg tablet] 40 mg PO BID 30 Days #60 tab Pantoprazole Sodium [Protonix 40mg tablet] 40 mg PO BID 30 Days #60 tab Continue Amlodipine Besylate [Amlodipine 10mg Tab] 10 mg PO DAILY Polyethylene Glycol 3350 [Miralax Powder] 17 gm PO DAILY [place]-3S/Dha/Epa/Fish Oil [Fish Oil 1,000 mg Softgel] 2 each PO BID Multivit-Min/FA/Lycopen/Lutein [Centrum Silver Tablet] 1 each PO DAILY glipiZIDE [Glipizide ER] 5 mg PO DAILY Acetaminophen [Tylenol 500mg tablet] 1,000 mg PO Q4HP PRN PRN Reason: pain Hydrocodone/Acetaminophen [Hydrocodone-Acetamin 7.5-325] 1 each PO HSP PRN PRN Reason: PAIN Niacin 1,000 mg PO HS Carvedilol [Carvedilol 12.5mg Tab] 12.5 mg PO BID Ticagrelor [Brilinta 90mg Tablet] 90 mg PO BID Rosuvastatin Calcium 10 mg PO HS Discontinued Rivaroxaban [Xarelto 15mg tablet] 15 mg PO HS Hydrocodone/Acetaminophen [Hydrocodon-Acetaminoph 7.5-325] 2 each PO DAILY
== END 2018-07-07 11:26 | disposition home or self-care (01) ==
LOC: ER 15:37 → 2ND 15:37
PROVIDERS: ADMIT Internal Medicine Adolescent Medicine; ATTEND Internal Medicine Adolescent Medicine
DX: Z88.0 Allergy status to penicillin; Z79.01 Long term (current) use of anticoagulants; K92.0 Hematemesis; Z79.899 Other long term (current) drug therapy; D62 Acute posthemorrhagic anemia; Z95.0 Presence of cardiac pacemaker; K92.2 Gastrointestinal hemorrhage, unspecified; Z86.79 Personal history of other diseases of the circulatory system; I48.2 Chronic atrial fibrillation; R74.8 Abnormal levels of other serum enzymes; I25.118 Atherosclerotic heart disease of native coronary artery with other forms of angina pectoris; Z95.5 Presence of coronary angioplasty implant and graft
CPT/HCPCS: 36415; 71020; 71046; 80053; 82272; 82962; 84484; 85014; 85018; 85025; 86850; 93005; 96365; 96375; 99283; G0328; G0378; P9016

== ENCOUNTER → 2018-07-10 10:08 | Outpatient (CLI) | payer MEDICARE, BC, SELFPAY ==
[2018-07-10 10:38] LABS: Hematocrit 28.3 % (42.0-52.0); Hemoglobin 8.9 g/dL (14.1-18.0)
[2018-07-10 11:23] VITALS: BMI 30.7
== END ==
LOC: LAB 11:21 → INF 11:23
PROVIDERS: Visit Provider Surgery
DX: D50.0 Iron deficiency anemia secondary to blood loss (chronic) (principal)
CPT/HCPCS: 36415; 85014; 85018; 86850

== ENCOUNTER 2018-07-11 08:20 | Outpatient (CLI) | payer MEDICARE, BC, SELFPAY ==
[2018-07-11] VITALS (21 sets, daily range): BP systolic 122–157; BP diastolic 68–89; PULSE 63–67; RESP 16–20; TEMP 36.3–36.6; O2SAT 98–100; BMI 30.7
--- NOTE | 2018-07-11 10:56 | PC.NURSE ---
07/11/18 0900 Transfusion of 1st unit of blood initiated at this time.
[2018-07-11 15:03] LABS: Hematocrit 31.5 % (42.0-52.0); Hemoglobin 9.9 g/dL (14.1-18.0)
--- NOTE | 2018-07-11 16:50 | PC.NURSE ---
07/11/18 1115 1st unit of blood transfusion complete. Pt has tolerated very well and denies any complaints. Skin warm/dry to touch, resp easy/reg. IV patent. Pt laughing and joking with staff and appears very comfortable. All vital signs stable.
--- NOTE | 2018-07-11 16:52 | PC.NURSE ---
07/11/18 1125 Transfusion of 2nd unit of blood initiated at this time. VSS. Pt denies c/o. No s/s of transfusion reaction noted. Pt appears to be tolerating blood very well.
--- NOTE | 2018-07-11 16:53 | PC.NURSE ---
07/11/18 1225 Pt doing well. Denies any complaints. VSS. Kristi blood well with no s/s transfusion reaction noted. Again reviewed s/s of reaction with pt verbalizing understanding/ reference handout at bedside. IV patent, resp easy/reg. skin warm/dry to touch, lungs CTA consistent with baseline prior to initiation of blood transfusion. Pt eating lunch at this time.
--- NOTE | 2018-07-11 16:55 | PC.NURSE ---
07/11/18 1345 2nd unit of blood transfused. Pt jessa well. Pt continues to deny any c/o. Pt up and about in unit awaiting 1 hour post transfusion H&H. No s/s of reaction or problems noted. Pt has voided x2
== END 2018-07-11 14:45 | disposition home or self-care (01) ==
LOC: INF 08:21
PROVIDERS: Visit Provider Surgery
DX: D64.9 Anemia, unspecified (principal); R53.1 Weakness
CPT/HCPCS: 36430; 85014; 85018; P9016

== ENCOUNTER → 2018-07-16 10:48 | Outpatient (CLI) | payer MEDICARE, BC, SELFPAY ==
[2018-07-16 12:12] LABS: Hematocrit 34.8 % (42.0-52.0); Hemoglobin 10.9 g/dL (14.1-18.0)
== END ==
PROVIDERS: Visit Provider Surgery
DX: K92.2 Gastrointestinal hemorrhage, unspecified (principal)
CPT/HCPCS: 36415; 85014; 85018

== ENCOUNTER → 2018-07-24 12:32 | Outpatient (CLI) | payer MEDICARE, SELFPAY ==
[2018-07-24 13:30] LABS: Hematocrit 40.2 % (42.0-52.0); Hemoglobin 12.3 g/dL (14.1-18.0)
== END ==
PROVIDERS: Visit Provider Surgery
DX: D50.0 Iron deficiency anemia secondary to blood loss (chronic) (principal)
CPT/HCPCS: 36415; 85014; 85018

== ENCOUNTER → 2018-07-31 09:15 | Outpatient (CLI) | payer MEDICARE, SELFPAY ==
--- NOTE | 2018-07-31 09:22 | CT_ITS ---
CT abdomen pelvis wo con CLINICAL INDICATION: Anemia, gastric lesion ITS.REASON: gastric lesion ORDERING PHYSICIAN: Manuel Veliz MD PATIENT AGE: 82 years COMPARISON: None TECHNIQUE: Axial images obtained with sagittal and coronal reformats. All CT scans at the facility use one or more dose reduction, viz: automated exposure control, ma/kV adjustment per patient size (including targeted exams where dose is matched to indication, i.e. head), or iterative reconstruction technique. PROCEDURE: Oral Contrast: None IV Contrast: Redicat. FINDINGS: Lung bases are clear. There is extensive coronary artery calcification/dense with artifact from cardiac pacemaker device. The liver, spleen, adrenal glands, and pancreas have an unremarkable unenhanced appearance. Gallstones are noted. No hydronephrosis. There is a 7 mm stone in the upper pole the left kidney nonobstructing. No abdominal or retroperitoneal adenopathy. Contrast is within the stomach however there is incomplete gastric distention. No obvious gastric mass evident however small lesions may very well not be detected. There has been a prior aortobifem graft placed with mild dilatation of the right iliac component at 2 cm similar to the previous exam. Unremarkable appendix. No evidence of diverticulitis. No pelvic mass or abnormal fluid collection apparent. There are degenerative changes in the lumbar spine. IMPRESSION: 1. No acute abdominal or pelvic findings. 2. Cholelithiasis. 3. Left nephrolithiasis
[2018-07-31 09:41] LABS: Blood Urea Nitrogen 26 mg/dL (7-18); Creatinine,Serum 2.15 mg/dL (0.70-1.30); Estimated Glomerular Filt Rate 30 ml/min (>60); GFR (African American) 36 ML/MIN (>60)
[2018-07-31 09:46] LABS: Hematocrit 37.6 % (42.0-52.0)
== END ==
PROVIDERS: Visit Provider Surgery
DX: D50.0 Iron deficiency anemia secondary to blood loss (chronic) (principal); K31.9 Disease of stomach and duodenum, unspecified
CPT/HCPCS: 36415; 74176; 82565; 84520; 85014; 85018

== ENCOUNTER → 2018-08-08 09:19 | Outpatient (CLI) | payer MEDICARE, SELFPAY ==
[2018-08-08 09:34] LABS: Hematocrit 37.9 % (42.0-52.0); Hemoglobin 12.1 g/dL (14.1-18.0)
== END ==
PROVIDERS: Visit Provider Surgery
DX: D50.0 Iron deficiency anemia secondary to blood loss (chronic) (principal)
CPT/HCPCS: 36415; 85014; 85018

== ENCOUNTER → 2018-11-23 08:49 | Outpatient (CLI) | payer MEDICARE, BC, SELFPAY ==
--- NOTE | 2018-11-23 08:55 | XR_ITS ---
XR knee RT 4V HISTORY: Knee pain ITS.REASON: 4 views weightbearing ORDERING PHYSICIAN: Erik Zhao MD PATIENT AGE: 82 years COMPARISON: 06/29/2016 FINDINGS: There are mild to moderate osteoarthritic changes of the medial compartment and patellofemoral joint. No fracture or dislocation. No lytic or blastic change. 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
== END ==
PROVIDERS: PCP Internal Medicine; Visit Provider Orthopaedic Surgery
DX: M25.561 Pain in right knee (principal)
CPT/HCPCS: 73564

== ENCOUNTER → 2019-01-15 09:28 | Outpatient (CLI) | payer MEDICARE, BC, SELFPAY ==
--- NOTE | 2019-01-15 09:37 | XR_ITS ---
XR chest 2V HISTORY: ITS.REASON: SOA,ANEMIC,ASCAP ORDERING PHYSICIAN: Raul Capone PATIENT AGE: 83 years COMPARISON: 01/09/2019. FINDINGS: The cardiomediastinal silhouette and pulmonary vascularity are within normal limits. There is very subtle slight increased peribronchial markings in the medial right lower lobe. This partially overlies the lower thorax spine on the lateral view.. There is no acute osseous process. Cardiac pacemaker remains stable.. IMPRESSION: Possible subtle developing peribronchial infiltrate in the medial right lower lobe.
[2019-01-15 09:40] LABS: Basophils % 0.1 % (0.1-2.0); Eosinophils # 0.2 K/mm3 (0.0-0.4); Eosinophils % 2.3 % (0.1-12.0); Hematocrit 36.1 % (42.0-52.0); Hemoglobin 11.5 g/dL (14.1-18.0); Lymphocytes # 0.9 K/mm3 (0.7-4.5); Lymphocytes % 8.2 % (10-50); Mean Corpuscular HGB Conc 31.9 g/dL (31.8-35.4); Mean Corpuscular Hemoglobin 28.4 pg (27.0-31.2); Mean Platelet Volume 8.1 fl (7.4-10.4); Monocytes # 0.6 K/mm3 (0.1-1.0); Neutrophils # 8.6 K/mm3 (1.8-7.8); Neutrophils % 83.4 % (37.0-80.0); Platelet Count 190 K/mm3 (142-424); Red Blood Count 4.06 M/mm3 (4.60-6.20); Red Cell Distribution Width 15.7 % (11.5-17.5); White Blood Count 10.3 K/mm3 (4.8-10.8)
[2019-01-15 10:00] LABS: Troponin I 0.13 ng/ml (0.00-0.06)
== END ==
PROVIDERS: Visit Provider Internal Medicine
DX: R06.02 Shortness of breath (principal); I25.10 Atherosclerotic heart disease of native coronary artery without angina pectoris; D64.9 Anemia, unspecified
CPT/HCPCS: 36415; 71046; 84484; 85025; 93005

== ENCOUNTER 2019-01-17 23:22 | Inpatient (IN) ==
[2019-01-17 23:49] LABS: Basophils % 0.1 % (0.1-2.0); Eosinophils # 0.2 K/mm3 (0.0-0.4); Eosinophils % 1.2 % (0.1-12.0); Hematocrit 34.2 % (42.0-52.0); Hemoglobin 10.7 g/dL (14.1-18.0); Lymphocytes # 0.6 K/mm3 (0.7-4.5); Lymphocytes % 4.5 % (10-50); Mean Corpuscular HGB Conc 31.2 g/dL (31.8-35.4); Mean Corpuscular Volume 90.2 fl (80-94); Mean Platelet Volume 8.4 fl (7.4-10.4); Monocytes # 0.5 K/mm3 (0.1-1.0); Monocytes % 3.7 % (1.7-9.3); Neutrophils # 12.2 K/mm3 (1.8-7.8); Neutrophils % 90.5 % (37.0-80.0); Platelet Count 214 K/mm3 (142-424); Red Blood Count 3.79 M/mm3 (4.60-6.20); Red Cell Distribution Width 15.8 % (11.5-17.5); White Blood Count 13.5 K/mm3 (4.8-10.8)
[2019-01-18 00:05] LABS: Albumin Level 3.3 gm/dL (3.4-5.0); Anion Gap 16.5 mEq/L (5-15); Bilirubin,Total 0.8 mg/dL (0.2-1.0); C-Reactive Protein 1.9 mg/L (0.0-0.9); Calcium 8.6 mg/dL (8.5-10.1); Globulin 3.2 gm/dl (1.3-3.2); Total Protein,Serum 6.5 gm/dL (6.4-8.2)
--- NOTE | 2019-01-18 00:56 | Emergency Department Note ---
ED Disposition Clinical Impression: Acute exacerbation of chronic obstructive airways disease, Renal insufficiency Community acquired pneumonia Qualifiers: Laterality: right Lung location: lower lobe of lung Qualified Code(s): J18.1 - Lobar pneumonia, unspecified organism Sepsis Qualifiers: Sepsis type: sepsis due to unspecified organism Qualified Code(s): A41.9 - Sepsis, unspecified organism Anemia Qualifiers: Anemia type: unspecified type Qualified Code(s): D64.9 - Anemia, unspecified Diabetes mellitus Qualifiers: Diabetes mellitus type: type 2 Diabetes mellitus snf insulin use: with rigger chief use Diabetes mellitus complication status: with other specified complication Qualified Code(s): E11.69 - Type 2 diabetes mellitus with other specified complication; Z79.4 - FDC (current) use of insulin Disposition: Admitted As Inpatient Condition on Discharge: Good Referrals: Raul Capone [Primary Care Provider] - - Critical Care Critical Care Time: No Attestation: On 01/17/19, the high probability of a clinically significant, sudden or life threatening deterioration of the following system(s) required my full and direct attention, intervention and personal management. The time I documented below is in addition to time spent performing reported procedures but includes the following listed in this critical care notation. Medical Decision Making - Medical Records Medical records reviewed: Yes: I reviewed the patient's medical records. - Matthew Inquiry Pt receiving controlled substance: No Vital Signs: 01/17/19 23:23 01/18/19 00:23 Temperature 98.2 F 98.9 F Temperature Source Oral Oral Pulse Rate [Right Brachial] 102 H 66 Respiratory Rate 20 19 Blood Pressure [Right Arm] 140/85 124/65 Blood Pressure Mean [Right Arm] 103 84 Blood Pressure Position [Right Arm] Sitting 02 Sat by Pulse Oximetry 98 98 Oxygen Delivery Method Room Air Room Air - Lab Data Lab results reviewed: Yes: I reviewed the patient's lab results. Lab Results 01/17/19 23:30: WBC 13.5 H D, RBC 3.79 L, Hgb 10.7 L, Hct 34.2 L, MCV 90.2, MCH 28.1, MCHC 31.2 L, RDW 15.8, Plt Count 214, MPV 8.4, Neut % (Auto) 90.5 H, Lymph % (Auto) 4.5 L, [place] % (Auto) 3.7, Eos % (Auto) 1.2, Baso % (Auto) 0.1, Neut # (Auto) 12.2 H, Lymph # (Auto) 0.6 L, [place] # (Auto) 0.5, Eos # (Auto) 0.2, Baso # (Auto) 0.0 01/17/19 23:30: Sodium 137, Potassium 4.5, Chloride 106, Carbon Dioxide 19 L, Anion Gap 16.5 H, BUN 45 H, Creatinine 2.29 H, Estimated Creat Clear 36, Estimated GFR 27 L, Est GFR ( Amer) 33 L, Glucose 247 H, Calcium 8.6, Total Bilirubin 0.8, AST 10 L, ALT 49, Alkaline Phosphatase 80, Troponin I 0.03, C-Reactive Protein 1.9 H, Total Protein 6.5, Albumin 3.3 L, Globulin 3.2, Albumin/Globulin Ratio 1.0 L 01/17/19 23:30: Lactate 2.5 H Result diagrams: 01/17/19 23:30 01/17/19 23:30 Orders (Tests/Meds): ED MEDICATIONS Generic Name Dose Route Start Last Admin Trade Name Freq PRN Reason Stop Dose Admin Sodium Chloride 3 ml 01/18/19 00:51 Sodium Chloride 3% 15ml [facility] 02/17/19 00:50 ONCE PRN INDUCE SPUTUM COLLECTION Discontinued Medications Generic Name Dose Route Start Last Admin Trade Name Freq PRN Reason Stop Dose Admin Acetylcysteine 2 ml 01/18/19 00:50 Mucomyst 20% 4ml Vial 01/18/19 00:51 ONCE ONE Albuterol/Ipratropium 3 ml 01/17/19 23:37 01/17/19 23:41 Duoneb 3ml [facility] 01/17/19 23:38 3 ml ONCE ONE Administration Hydrocodone Bit/Homatropine Methylb 1 each 01/18/19 00:07 01/18/19 00:08 Hycodan 5mg Tablet PO 01/18/19 00:08 1 each ONCE ONE Administration Methylprednisolone Sodium Succinate 125 mg 01/17/19 23:37 01/18/19 00:00 Solu-Medrol 125mg/2ml Vial IV 01/17/19 23:38 125 mg ONCE ONE Administration ORDERS Category Date Time Status XR chest portable Stat Exams 01/17/19 23:37 Taken Complete Blood Count Auto Diff Stat Lab 01/17/19 23:30 Results Erythrocyte Sedimentation Rate Stat Lab 01/17/19 23:30 Results Blood Culture Stat Micro 01/18/19 00:05 Ordered Sputum Culture & Gram Stain Stat Micro 01/18/19 00:51 Ordered ECG Request by /Swati Stat Y 01/17/19 23:37 Ordered - Radiology Data #1 Image(s): Chest Image Reviewed: Yes I reviewed the patient's radiology image Preliminary Findings: Abnormal (rt base ) - ECG Data Tracing #1 Conduction abnormalities present: LBBB Pacemaker function: normal pacer function ECG compared to prior tracings: there are no significant changes - Physician Consults Physician Consulted: leroy Reason -: Admission Resp/SOB HPI - General Chief Complaint: Shortness of Breath/Dyspnea Stated Complaint: shortness of breath,cough,wheezing Time Seen by Provider: 01/18/19 00:00 Mode of Arrival: Wheelchair Source of Information: Patient, Relative, Medical Record Limitations: No Limitations Description of Symptoms (Recalled from ER Triage Doc. by RN): Pt presents with c/o shortness of breath. Diagnosed with pneumonia by Liborio Amaya,and states his breathing has gotten much worse, tonight he cannot catch his breath and he has pain with inspiration and couging. - History of Present Illness being treated as op for cap on z ko - has progressive sob - pt has hx of card disease MD Complaint: shortness of breath, cough Onset (ago): day(s) Context: recent illness Severity: moderate Known history of: COPD, diabetes Associated symptoms: denies other symptoms Treatment prior to arrival: bronchodilator - Related Data Home oxygen amount: none Home Medications Medication Instructions Recorded Confirmed Amlodipine Besylate [Amlodipine 10 mg PO DAILY 07/06/18 01/17/19 10mg Tab] Carvedilol [Carvedilol 12.5mg Tab] 12.5 mg PO BID 07/06/18 01/17/19 Multivit-Min/FA/Lycopen/Lutein 1 each PO DAILY 07/06/18 01/17/19 [Centrum Silver Tablet] [facility]-3S/Dha/Epa/Fish Oil [Fish 2 each PO BID 07/06/18 01/17/19 Oil 1,000 mg Softgel] Polyethylene Glycol 3350 [Miralax 17 gm PO DAILY 07/06/18 01/17/19 Powder] Ticagrelor [Brilinta 90mg Tablet] 90 mg PO BID 07/06/18 01/17/19 glipiZIDE [Glipizide ER] 5 mg PO DAILY 07/06/18 01/17/19 Acetaminophen [Tylenol 500mg 1,000 mg PO Q4HP PRN 07/07/18 01/17/19 tablet] Hydrocodone/Acetaminophen 1 each PO HSP PRN 07/07/18 01/17/19 [Hydrocodone-Acetamin 7.5-325] Niacin 1,000 mg PO HS 07/07/18 01/17/19 Rosuvastatin Calcium 10 mg PO HS 07/07/18 01/17/19 albuterol sulfate HFA 90 1 puff INHALATION Q6H PRN 07/10/18 01/17/19 mcg/actuation aerosol inhaler azithromycin 250 mg tablet 250 mg PO DAILY 07/10/18 01/17/19 Pantoprazole Sodium [Protonix 40mg 40 mg PO BID 07/11/18 01/17/19 tablet] Rivaroxaban [Xarelto 10mg tablet] 10 mg PO DAILY 07/19/18 01/17/19 Sucralfate [Carafate 1gm Tab] 1 gm PO ACHS 07/19/18 01/17/19 predniSONE [Prednisone 50mg Tab] 50 mg PO DAILY 01/17/19 01/17/19 Allergies Allergy/AdvReac Type Severity Reaction Status Date / Time penicillin G [PENICILLIN G] Allergy Mild Verified 11/23/18 10:05 [facility] History - Hepatitis A Screen Drug use history?: No High risk sexual behaviors?: No History of sexually transmitted infection?: No Currently employed?: No Childcare worker?: No Do you have indoor plumbing?: Yes Do you have electricity?: Yes Attestation statement:: This patient has been screened for Hepatitis A risk factors. I have reviewed the patient's past medical history: Yes Medical History: Reports:: Atrial Fibrillation, Diabetes Mellitus Type 2, Hyperlipidemia, Hypertension, Internal Pacemaker, Lung Disease Denies:: Cancer, Diabetes Mellitus Type 1, MRSA, Seizures Other Medical History: Reports: Anemia. Denies: Blood Transfusion Reaction Other Surgeries: Yes: Cardiac Catheterization, Colonoscopy, Coronary Stent (NOVEMBER 2017), Pacemaker, Other Amputation: No Fractures: No Comment: anal fistula X 2 - Social History Smoking Status: Current every day smoker Tobacco Type: cigarettes # Packs/Day (cigarettes): 1 Alcohol Intake: never Substance Use Type: denies use Occupational Status: retired Housing: house Family Hx:: No significant family history ROS Obtained: Yes All systems reviewed & no additional complaints - Constitutional Constitutional: Denies fever(s) - Eyes Eyes: Denies change in vision - ENT Ears, Nose, Mouth, and Throat: Denies sore throat - Cardiovascular Cardiovascular: Denies chest pain, Reports dyspnea - Respiratory Respiratory: Yes as per HPI, Yes cough, Yes non-productive cough, Yes dyspnea, No coughing up blood - Gastrointestinal Gastrointestingal: Denies: abdominal pain - Genitourinary Male Genitourinary: Denies hematuria - Musculoskeletal Musculoskeletal: Denies joint pain - Integumentary/Breasts Skin/Breast: Denies rash - Neurologic Neurologic: Denies seizure-like activity Physical Exam - General General appearance: alert, in no apparent distress, obese - Head Head exam: normocephalic - Eye Eye exam: Present: PERRL, EOMI. Absent: scleral icterus - ENT ENT exam: Present: mucous membranes dry - Neck Neck exam: Present: trachea midline - Respiratory Respiratory exam: Present: wheezes, prolonged expiratory phase. Absent: respiratory distress - Cardiovascular Cardiovascular exam: Present: regular rate, systolic murmur, +S4 - Abdominal Exam Abdominal exam: Present: soft - Extremities Exam Extremities exam: Absent: calf tenderness - Neurological Exam Neurological exam: Present: alert, oriented X3, CN II-XII intact - Psychiatric Psychiatric exam: Present: normal affect - Skin Skin exam: Absent: rash
[2019-01-18 01:09] LABS: Anisocytosis 1+; Lymphocytes % 5 % (10-50); Neutrophils % 95 % (42-76); Total Cells Counted 100
[2019-01-18 01:10] LABS: Erythrocyte Sedimentation Rate 19 mm/hr (0-20)
[2019-01-18 04:18] LABS: Eosinophils % 0.2 % (0.1-12.0); Hematocrit 32.2 % (42.0-52.0); Hemoglobin 10.2 g/dL (14.1-18.0); Lymphocytes # 0.5 K/mm3 (0.7-4.5); Lymphocytes % 4.1 % (10-50); Mean Corpuscular HGB Conc 31.6 g/dL (31.8-35.4); Mean Corpuscular Volume 90.3 fl (80-94); Mean Platelet Volume 8.8 fl (7.4-10.4); Monocytes # 0.3 K/mm3 (0.1-1.0); Monocytes % 2.8 % (1.7-9.3); Neutrophils # 10.4 K/mm3 (1.8-7.8); Neutrophils % 92.9 % (37.0-80.0); Platelet Count 183 K/mm3 (142-424); Red Blood Count 3.56 M/mm3 (4.60-6.20); Red Cell Distribution Width 15.8 % (11.5-17.5); White Blood Count 11.2 K/mm3 (4.8-10.8)
[2019-01-18 04:22] LABS: Anion Gap 16.8 mEq/L (5-15); Calcium 8.3 mg/dL (8.5-10.1)
--- NOTE | 2019-01-18 08:09 | Pharmacy Consult Notes ---
[facility] Pharmacy VTE Monitoring - Patient Demographics Admission date: 01/18/19 Report Date: 01/18/19 Time: 08:08 Allergies/Adverse Reactions: Patient Allergies penicillin G [PENICILLIN G] Allergy (Mild, Verified 11/23/18 10:05) Height: 1.8 m Weight: 97.069 kg Patient Problems: Current Active Problems (Updated 01/18/19 @ 01:03 by Mohan Reynolds MD) Community acquired pneumonia (Acute) Sepsis (Acute) Acute exacerbation of chronic obstructive airways disease (Acute) Renal insufficiency (Acute) Anemia (Acute) Diabetes mellitus (Acute) - VTE Risk Labs: VTE Related Lab Results Hgb 10.2 g/dL (14.1-18.0) L 01/18/19 03:55 Hct 32.2 % (42.0-52.0) L 01/18/19 03:55 Plt Count 183 K/mm3 (142-424) 01/18/19 03:55 BUN 47 mg/dL (7-18) H 01/18/19 03:55 Creatinine 2.11 mg/dL (0.70-1.30) H 01/18/19 03:55 Estimated Creat Clear 37 mL/min (50-200) 01/18/19 03:55 Was VTE Risk Assessment Performed: Yes VTE Score: 6 VTE Risk Level: Moderate Risk - Prophylaxis VTE Prophylaxis Ordered?: Yes Types of VTE Prophylaxis: Pharmacological Pharmacologic Type: Other (XARELTO)
--- NOTE | 2019-01-18 09:14 | History & Physical Report ---
*Admission Date: 01/18/19 *Chief complaint: Cough, SOA *History of present illness: Mr. Ny is an 83-year-old male who presents with failed outpatient treatment for pneumonia. Patient is a longtime patient of Dr. Capone. He saw him earlier this week on Monday when he was started on Omnicef, azithromycin, and steroids for pneumonia/COPD exacerbation. Mr. Ny complains of having had cough and congestion for greater than a week. He was not feeling better over the past 2 days and so came to the ER due to worsening symptoms. States he has been using albuterol at home via nebulizer but is not on a long-acting inhaler. States he is never been diagnosed with COPD however he has smoked "all my life". Has remained afebrile during admission. Stable on room air however significant complaint of not feeling any better, having harsh cough that is not productive. Concerned he is going to "break a rib". Patient denies any nausea, vomiting, chest pain, syncope. Does feel short of breath and very ill. Has had episodes like this before and does not want to go home until he is starting to get b aren. Was admitted to medicine for further management of pneumonia seen on x- ray. Did briefly meet sepsis criteria on admission for white count, respiratory rate, pneumonia. Was initially started on ceftriaxone and azithromycin (essentially the same regimen as outpatient) and breathing treatments. [facility] History I have reviewed the patient's past medical history: Yes Medical History: Reports:: Atrial Fibrillation, Coronary Artery Disease, Diabetes Mellitus Type 2, Hyperlipidemia, Hypertension, Internal Pacemaker, Lung Disease, Myocardial Infarction Denies:: Cancer, Diabetes Mellitus Type 1, MRSA, Seizures *Have you ever received a pneumonia vaccine?: Yes *Have you received a flu vaccine this season?: Yes Other Medical History: Reports: Anemia, Arthritis, Blood Transfusion Reaction Other Surgeries: Yes: Cardiac Catheterization, Colonoscopy, Coronary Stent, EGD, Pacemaker, Other (ANAL FISTULA X2, BACK SURGERY) Amputation: No Fractures: No - *Social History Educational Level: Completed High School Smoking Status: Current every day smoker Tobacco Type: cigarettes # Packs/Day (cigarettes): 1 Alcohol Intake: never Substance Use Type: denies use *Occupational Status:: retired Housing: house Household Members: family *Travel in the last 8 weeks: None - Psychiatric History Expresses thoughts of harming self/others: None Family Hx:: Cancer, Coronary Artery Disease, Heart Attack, Tuberculosis Review of Systems - Review of Systems Review of systems:: pertinent systems reviewed and negative unless documented below - *Neurologic Denies seizure-like activity Meds Home Medications Medication Instructions Recorded Confirmed Type Amlodipine Besylate [Amlodipine 10 mg PO DAILY 07/06/18 01/17/19 History 10mg Tab] Carvedilol [Carvedilol 12.5mg Tab] 12.5 mg PO BID 07/06/18 01/18/19 History Multivit-Min/FA/Lycopen/Lutein 1 each PO DAILY 07/06/18 01/17/19 History [Centrum Silver Tablet] [place]-3S/Dha/Epa/Fish Oil [Fish 2 each PO BID 07/06/18 01/17/19 History Oil 1,000 mg Softgel] Polyethylene Glycol 3350 [Miralax 17 gm PO DAILY 07/06/18 01/17/19 History Powder] Ticagrelor [Brilinta 90mg Tablet] 90 mg PO BID 07/06/18 01/17/19 History glipiZIDE [Glipizide ER] 5 mg PO DAILY 07/06/18 01/17/19 History Acetaminophen [Tylenol 500mg 1,000 mg PO Q4HP PRN 07/07/18 01/18/19 History tablet] Niacin 1,000 mg PO HS 07/07/18 01/17/19 History Rosuvastatin Calcium 10 mg PO HS 07/07/18 01/17/19 History albuterol sulfate HFA 90 1 puff INHALATION Q6HP PRN 07/10/18 01/18/19 History mcg/actuation aerosol inhaler azithromycin 250 mg tablet 250 mg PO DIRECTED 07/10/18 01/18/19 History Pantoprazole Sodium [Protonix 40mg 40 mg PO BID 07/11/18 01/17/19 History tablet] Sucralfate [Carafate 1gm Tab] 1 gm PO ACHS 07/19/18 01/17/19 History Aspirin [Aspirin 81mg EC Tab] 81 mg PO DAILY 01/18/19 01/18/19 History Cefdinir [Omnicef 300mg Capsule] 300 mg PO DAILY 01/18/19 01/18/19 History Hydrocodone/Acetaminophen 1 each PO Q6HP PRN 01/18/19 01/18/19 History [Hydrocodon-Acetaminoph 7.5-325] predniSONE [Prednisone 20mg 20 mg PO BID 01/18/19 01/18/19 History Tab] Allergies Allergy/AdvReac Type Severity Reaction Status Date / Time penicillin G [PENICILLIN G] Allergy Mild Verified 11/23/18 10:05 Exam Vital signs and Labs for Last 24 Hours: Temp Pulse Resp BP Pulse Ox 98.0 F 75 20 154/67 H 97 01/18/19 08:00 01/18/19 08:00 01/18/19 08:00 01/18/19 08:00 01/18/19 08:00 Laboratory Results - last 24 hr 01/17/19 23:30: WBC 13.5 H D, RBC 3.79 L, Hgb 10.7 L, Hct 34.2 L, MCV 90.2, MCH 28.1, MCHC 31.2 L, RDW 15.8, Plt Count 214, MPV 8.4, Neut % (Auto) 90.5 H, Lymph % (Auto) 4.5 L, [place] % (Auto) 3.7, Eos % (Auto) 1.2, Baso % (Auto) 0.1, Neut # (Auto) 12.2 H, Lymph # (Auto) 0.6 L, [place] # (Auto) 0.5, Eos # (Auto) 0.2, Baso # (Auto) 0.0, Total Counted 100, Neutrophils % (Manual) 95 H, Lymphocytes % (Manual) 5 L, Platelet Estimate Normal, Anisocytosis 1+, ESR 19 01/17/19 23:30: Sodium 137, Potassium 4.5, Chloride 106, Carbon Dioxide 19 L, Anion Gap 16.5 H, BUN 45 H, Creatinine 2.29 H, Estimated Creat Clear 36, Estimated GFR 27 L, Est GFR ( Amer) 33 L, Glucose 247 H, Calcium 8.6, Total Bilirubin 0.8, AST 10 L, ALT 49, Alkaline Phosphatase 80, Troponin I 0.03, C-Reactive Protein 1.9 H, Total Protein 6.5, Albumin 3.3 L, Globulin 3.2, Albumin/Globulin Ratio 1.0 L 01/17/19 23:30: Lactate 2.5 H 01/18/19 03:55: Troponin I 0.03 01/18/19 03:55: WBC 11.2 H, RBC 3.56 L, Hgb 10.2 L, Hct 32.2 L, MCV 90.3, MCH 28.5, MCHC 31.6 L, RDW 15.8, Plt Count 183, MPV 8.8, Neut % (Auto) 92.9 H, Lymph % (Auto) 4.1 L, [place] % (Auto) 2.8, Eos % (Auto) 0.2, Baso % (Auto) 0.0 L, Neut # (Auto) 10.4 H, Lymph # (Auto) 0.5 L, [place] # (Auto) 0.3, Eos # (Auto) 0.0, Baso # (Auto) 0.0 01/18/19 03:55: Sodium 138, Potassium 4.8, Chloride 107, Carbon Dioxide 19 L, Anion Gap 16.8 H, BUN 47 H, Creatinine 2.11 H, Estimated Creat Clear 37, Estimated GFR 30 L, Est GFR ( Amer) 37 L, Glucose 237 H, Calcium 8.3 L, Magnesium 2.4 H 01/18/19 03:55: Lactate 1.9 01/18/19 06:01: POC Glucose 237 H 01/18/19 07:15: Troponin I 0.02 I & O for Last 24 hours: Intake & Output 01/15/19 01/16/19 01/17/19 01/18/19 23:59 23:59 23:59 23:59 Intake Total 635 / 635 Output Total 236 / 236 Balance 399 / 399 Weight 102.058 kg 97.069 kg Microbiology Reports for the Last 24 Hours: Microbiology 01/18/19 01:30 Sputum - Expectorated Sputum Gram Stain - Final - Constitutional no acute distress, cooperative - *Routine HEENT Exam Head: Present: normocephalic Eye: Present: EOMI, PERRL ENT: Present: mucous membranes moist - *Routine Neck Exam Present: supple. Absent: lymphadenopathy - *Routine Respiratory Exam Present: prolonged expiratory phase, rhonchi, wheezes, crackles Comments: Right posterior lung field most severe. - *Routine Cardiovascular Exam Present: RRR - *Routine Abdominal Exam Present: soft, normoactive bowel sounds Assessment and Plan (1) Anemia Current visit: Yes Status: Chronic Qualifiers: Anemia type: unspecified type Qualified Code(s): D64.9 - Anemia, unspecified Category: Medical Code(s): D64.9 - Anemia, unspecified (2) Community acquired pneumonia Current visit: Yes Status: Acute Qualifiers: Laterality: right Lung location: lower lobe of lung Qualified Code(s): J18.1 - Lobar pneumonia, unspecified organism Category: Medical Code(s): J18.9 - Pneumonia, unspecified organism Failed outpatient therapy of Omnicef and azithromycin. Transition to Levaquin for inpatient therapy. While patient is not requiring oxygen, his lung exam is quite prominent, his curb 65 score is elevated with a BUN greater than 19 and age greater than 65. 2 points puts him in a moderate risk group with 6.8% 30- day mortality risk. Plan to continue inpatient therapy until patient shows some defervesced since and improvement in his symptoms. Transition to oral antibiotics when appropriate. Sputum culture pending. 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 Will initiate sliding scale insulin while admitted due to steroids and elevated glucose. Monitor with fingerstick AC at bedtime (4) Renal insufficiency Current visit: Yes Status: Acute Category: Medical Code(s): N28.9 - Disorder of kidney and ureter, unspecified Complicates his care, appears to be at baseline per past lab results. BUN still quite elevated however. We will continue IV fluid resuscitation. Monitor for improvement with morning labs. Will avoid nephrotoxic agents. (5) Sepsis Current visit: Yes Status: Acute Qualifiers: Sepsis type: sepsis due to unspecified organism Qualified Code(s): A41.9 - Sepsis, unspecified organism Category: Medical Code(s): A41.9 - Sepsis, unspecified organism Initiated on antibiotics and fluids. Positive for sepsis with infection, tachycardia, leukocytosis. Cultures pending. Symptoms defervesce and. (6) Coronary artery disease Current visit: No Status: Chronic Qualifiers: Coronary Disease-Associated Artery/Lesion type: jamul artery [place] vs. transplanted heart: jamul heart Associated angina: with stable angina Matt lified Code(s): I25.118 - Atherosclerotic heart disease of jamul coronary artery with other forms of angina pectoris Category: Medical Code(s): I25.10 - Atherosclerotic heart disease of jamul coronary artery without angina pectoris To new home medications. Had slight elevation of troponin on presentation, consistent with supply demand mismatch. - Assessment and plan all Dx Assessment and Plan for all problems:: She continues to require inpatient management given failure of outpatient therapy. Will transition antibiotics to Levaquin. Awaiting cultures. Will monitor for improvement over the next 24 hours. If improving tomorrow, plan to switch to outpatient regimen of oral antibiotics.
--- NOTE | 2019-01-18 22:31 | Discharge Summary ---
General - General Admission date:: 01/18/19 HPI HPI: Mr. Ny is an 83-year-old male who presents with failed outpatient treatment for pneumonia. Patient is a longtime patient of Dr. Capone. He saw him earlier this week on Monday when he was started on Omnicef, azithromycin, and steroids for pneumonia/COPD exacerbation. Mr. Ny complains of having had cough and congestion for greater than a week. He was not feeling better over the past 2 days and so came to the ER due to worsening symptoms. States he has been using albuterol at home via nebulizer but is not on a long-acting inhaler. States he is never been diagnosed with COPD however he has smoked "all my life". Has remained afebrile during admission. Stable on room air however significant complaint of not feeling any better, having harsh cough that is not productive. Concerned he is going to "break a rib". Patient denies any nausea, vomiting, chest pain, syncope. Does feel short of breath and very ill. Has had episodes like this before and does not want to go home until he is starting to get better. Was admitted to medicine for further management of pneumonia seen on x- ray. Did briefly meet sepsis criteria on admission for white count, respiratory rate, pneumonia. Was initially started on ceftriaxone and azithromycin (essentially the same regimen as outpatient) and breathing treatments. Hospital Course Hospital Course: Mr. Ny was admitted for failed outpatient therapy of pneumonia. He was transitioned to Levaquin renally dosed every 48 hours due to chronic kidney dysfunction. Showed improvement over the course of admission. Cough decreasing with significant improvement in respiratory exam. Did not require oxygen during admission. Was initiated on long-acting combo inhaler for COPD and given samples. Overall patient showed response to transition of class of antibiotics and initiation of long-acting inhaler. Given improvement, medically stable for discharge home. Denies chest pain, nausea vomiting, fever, diarrhea. Cough intervally improved, improvement in shortness of breath. Objective Vital signs: Temp Pulse Resp BP Pulse Ox 97.7 F 68 20 148/82 H 92 L 01/18/19 19:52 01/18/19 21:57 01/18/19 19:52 01/18/19 19:52 01/18/19 19:52 Narrative: - Constitutional no acute distress, cooperative - *Routine HEENT Exam Head: Present: normocephalic Eye: Present: EOMI, PERRL ENT: Present: mucous membranes moist - *Routine Neck Exam Present: supple. Absent: lymphadenopathy - *Routine Respiratory Exam Present: prolonged expiratory phase, significant improvement in lung exam from yesterday. Minimal rhonchi in right lower lobe, no wheeze or crackles, left lung with rhonchi that clear with cough, improved aeration. - *Routine Cardiovascular Exam Present: RRR - *Routine Abdominal Exam Present: soft, normoactive bowel sounds Results Labs on day of discharge: Labs from last 24 hours 01/18/19 01/18/19 01/18/19 20:46 17:17 11:11 WBC RBC Hgb Hct MCV MCH MCHC RDW Plt Count MPV Neut % (Auto) Lymph % (Auto) [place] % (Auto) Eos % (Auto) Baso % (Auto) Neut # (Auto) Lymph # (Auto) [place] # (Auto) Eos # (Auto) Baso # (Auto) Total Counted Neutrophils % (Manual) Lymphocytes % (Manual) Platelet Estimate Anisocytosis ESR Sodium Potassium Chloride Carbon Dioxide Anion Gap BUN Creatinine Estimated Creat Clear Estimated GFR Est GFR ( Amer) Glucose POC Glucose 250 H 302 H* 330 H* Lactate Calcium Magnesium Total Bilirubin AST ALT Alkaline Phosphatase Troponin I C-Reactive Protein Total Protein Albumin Globulin Albumin/Globulin Ratio 01/18/19 01/18/19 01/18/19 07:15 06:01 03:55 WBC RBC Hgb Hct MCV MCH MCHC RDW Plt Count MPV Neut % (Auto) Lymph % (Auto) [place] % (Auto) Eos % (Auto) Baso % (Auto) Neut # (Auto) Lymph # (Auto) [place] # (Auto) Eos # (Auto) Baso # (Auto) Total Counted Neutrophils % (Manual) Lymphocytes % (Manual) Platelet Estimate Anisocytosis ESR Sodium Potassium Chloride Carbon Dioxide Anion Gap BUN Creatinine Estimated Creat Clear Estimated GFR Est GFR ( Amer) Glucose POC Glucose 237 H Lactate 1.9 Calcium Magnesium Total Bilirubin AST ALT Alkaline Phosphatase Troponin I 0.02 C-Reactive Protein Total Protein Albumin Globulin Albumin/Globulin Ratio 01/18/19 01/18/19 01/18/19 03:55 03:55 03:55 WBC 11.2 H RBC 3.56 L Hgb 10.2 L Hct 32.2 L MCV 90.3 MCH 28.5 MCHC 31.6 L RDW 15.8 Plt Count 183 MPV 8.8 Neut % (Auto) 92.9 H Lymph % (Auto) 4.1 L [place] % (Auto) 2.8 Eos % (Auto) 0.2 Baso % (Auto) 0.0 L Neut # (Auto) 10.4 H Lymph # (Auto) 0.5 L [place] # (Auto) 0.3 Eos # (Auto) 0.0 Baso # (Auto) 0.0 Total Counted Neutrophils % (Manual) Lymphocytes % (Manual) Platelet Estimate Anisocytosis ESR Sodium 138 Potassium 4.8 Chloride 107 Carbon Dioxide 19 L Anion Gap 16.8 H BUN 47 H Creatinine 2.11 H Estimated Creat Clear 37 Estimated GFR 30 L Est GFR ( Amer) 37 L Glucose 237 H POC Glucose Lactate Calcium 8.3 L Magnesium 2.4 H Total Bilirubin AST ALT Alkaline Phosphatase Troponin I 0.03 C-Reactive Protein Total Protein Albumin Globulin Albumin/Globulin Ratio 01/17/19 01/17/19 01/17/19 23:30 23:30 23:30 WBC 13.5 H D RBC 3.79 L Hgb 10.7 L Hct 34.2 L MCV 90.2 MCH 28.1 MCHC 31.2 L RDW 15.8 Plt Count 214 MPV 8.4 Neut % (Auto) 90.5 H Lymph % (Auto) 4.5 L [place] % (Auto) 3.7 Eos % (Auto) 1.2 Baso % (Auto) 0.1 Neut # (Auto) 12.2 H Lymph # (Auto) 0.6 L [place] # (Auto) 0.5 Eos # (Auto) 0.2 Baso # (Auto) 0.0 Total Counted 100 Neutrophils % (Manual) 95 H Lymphocytes % (Manual) 5 L Platelet Estimate Normal Anisocytosis 1+ ESR 19 Sodium 137 Potassium 4.5 Chloride 106 Carbon Dioxide 19 L Anion Gap 16.5 H BUN 45 H Creatinine 2.29 H Estimated Creat Clear 36 Estimated GFR 27 L Est GFR ( Amer) 33 L Glucose 247 H POC Glucose Lactate 2.5 H Calcium 8.6 Magnesium Total Bilirubin 0.8 AST 10 L ALT 49 Alkaline Phosphatase 80 Troponin I 0.03 C-Reactive Protein 1.9 H Total Protein 6.5 Albumin 3.3 L Globulin 3.2 Albumin/Globulin Ratio 1.0 L DS: Diagnosis - Discharge Diagnosis (1) Anemia Status: Chronic (2) Community acquired pneumonia Status: Acute (3) Diabetes mellitus Status: Chronic (4) Renal insufficiency Status: Chronic (5) Sepsis Status: Resolved (6) Coronary artery disease Status: Chronic Discharge Plan - Patient Discharge Instructions ACTIVITY: Continue current activity DIET: continue same diet Patient Instructions: DI for Kidney Failure, DI for Chronic Obstructive Pulmonary Disease, DI for Pneumonia -- Adult, DI for Diabetes Type 2, DI for Sepsis -- Adult - Follow up Plan Follow up with: Raul Capone [Primary Care Provider] - 01/25/19 9:20 am Disposition: Home, Self-Fdc Medications: Home Medications Medication Instructions Recorded Confirmed Type Amlodipine Besylate [Amlodipine 10 mg PO DAILY 07/06/18 01/17/19 History 10mg Tab] Carvedilol [Carvedilol 12.5mg Tab] 12.5 mg PO BID 07/06/18 01/18/19 History Multivit-Min/FA/Lycopen/Lutein 1 each PO DAILY 07/06/18 01/17/19 History [Centrum Silver Tablet] [place]-3S/Dha/Epa/Fish Oil [Fish 2 each PO BID 07/06/18 01/17/19 History Oil 1,000 mg Softgel] Polyethylene Glycol 3350 [Miralax 17 gm PO DAILY 07/06/18 01/17/19 History Powder] Ticagrelor [Brilinta 90mg Tablet] 90 mg PO BID 07/06/18 01/17/19 History glipiZIDE [Glipizide ER] 5 mg PO DAILY 07/06/18 01/17/19 History Acetaminophen [Tylenol 500mg 1,000 mg PO Q4HP PRN 07/07/18 01/18/19 History tablet] Niacin 1,000 mg PO HS 07/07/18 01/17/19 History Rosuvastatin Calcium 10 mg PO HS 07/07/18 01/17/19 History albuterol sulfate HFA 90 1 puff INHALATION Q6HP PRN 07/10/18 01/18/19 History mcg/actuation aerosol inhaler azithromycin 250 mg tablet 250 mg PO DIRECTED 07/10/18 01/18/19 History Pantoprazole Sodium [Protonix 40mg 40 mg PO BID 07/11/18 01/17/19 History tablet] Sucralfate [Carafate 1gm Tab] 1 gm PO ACHS 07/19/18 01/17/19 History Aspirin [Aspirin 81mg EC Tab] 81 mg PO DAILY 01/18/19 01/18/19 History Cefdinir [Omnicef 300mg Capsule] 300 mg PO DAILY 01/18/19 01/18/19 History Hydrocodone/Acetaminophen 1 each PO Q6HP PRN 01/18/19 01/18/19 History [Hydrocodon-Acetaminoph 7.5-325] predniSONE [Prednisone 20mg 20 mg PO BID 01/18/19 01/18/19 History Tab] levoFLOXacin [Levaquin 750mg 750 mg PO Q48H 8 Days #4 tab 01/19/19 Rx tablet] Prescriptions/Medication Reconciliation: New levoFLOXacin [Levaquin 750mg tablet] 750 mg PO Q48H 8 Days #4 tab Continued albuterol sulfate HFA 90 mcg/actuation aerosol inhaler 1 puff INHALATION Q6HP PRN PRN Reason: Shortness Of Breath Amlodipine Besylate [Amlodipine 10mg Tab] 10 mg PO DAILY Polyethylene Glycol 3350 [Miralax Powder] 17 gm PO DAILY [place]-3S/Dha/Epa/Fish Oil [Fish Oil 1,000 mg Softgel] 2 each PO BID Multivit-Min/FA/Lycopen/Lutein [Centrum Silver Tablet] 1 each PO DAILY glipiZIDE [Glipizide ER] 5 mg PO DAILY Acetaminophen [Tylenol 500mg tablet] 1,000 mg PO Q4HP PRN PRN Reason: pain Niacin 1,000 mg PO HS Pantoprazole Sodium [Protonix 40mg tablet] 40 mg PO BID Sucralfate [Carafate 1gm Tab] 1 gm PO ACHS Hydrocodone/Acetaminophen [Hydrocodon-Acetaminoph 7.5-325] 1 each PO Q6HP PRN PRN Reason: PAIN Carvedilol [Carvedilol 12.5mg Tab] 12.5 mg PO BID Ticagrelor [Brilinta 90mg Tablet] 90 mg PO BID Rosuvastatin Calcium 10 mg PO HS Aspirin [Aspirin 81mg EC Tab] 81 mg PO DAILY Discontinued azithromycin 250 mg tablet 250 mg PO DIRECTED predniSONE [Prednisone 20mg Tab] 20 mg PO BID Cefdinir [Omnicef 300mg Capsule] 300 mg PO DAILY
[2019-01-19 06:37] LABS: Eosinophils % 0.1 % (0.1-12.0); Hemoglobin 10.6 g/dL (14.1-18.0); Lymphocytes # 0.5 K/mm3 (0.7-4.5); Lymphocytes % 4.7 % (10-50); Mean Corpuscular HGB Conc 32.2 g/dL (31.8-35.4); Mean Corpuscular Volume 91.1 fl (80-94); Mean Platelet Volume 8.1 fl (7.4-10.4); Monocytes # 0.6 K/mm3 (0.1-1.0); Monocytes % 5.2 % (1.7-9.3); Neutrophils # 10.2 K/mm3 (1.8-7.8); Platelet Count 188 K/mm3 (142-424); Red Blood Count 3.62 M/mm3 (4.60-6.20); Red Cell Distribution Width 15.7 % (11.5-17.5); White Blood Count 11.3 K/mm3 (4.8-10.8)
[2019-01-19 06:54] LABS: Anion Gap 15.7 mEq/L (5-15); Calcium 8.3 mg/dL (8.5-10.1)
[2019-01-19 07:25] LABS: Lymphocytes % 9 % (10-50); Monocytes % 6 % (2-9); Neutrophils % 85 % (42-76); Total Cells Counted 100
[2019-01-19 07:26] LABS: RBC Morphology Normal
== END 2019-01-19 10:15 | disposition home or self-care (01) | DRG 871 ==
LOC: ER 23:22 → 2ND 01-18 01:01
PROVIDERS: ADMIT Family Medicine; ATTEND Internal Medicine Adolescent Medicine
CPT/HCPCS: 36415; 71010; 71020; 71045; 71046; 80048; 80053; 82962; 83605; 83735; 84484; 85007; 85025; 85651; 86140; 87040; 87070; 87205; 93005; 94640; 96365; 96375; 99284; J0456; J1956

== ENCOUNTER → 2019-02-12 16:35 | Outpatient (CLI) | payer MEDICARE, BC, SELFPAY ==
[2019-02-19 08:20] LABS: Size 3x2x1 mm (.)
[2019-02-19 11:03] LABS: Comment Note: (.); Specimen Type Comment: (.)
== END ==
PROVIDERS: Visit Provider Urology
DX: N20.0 Calculus of kidney (principal); N41.1 Chronic prostatitis
CPT/HCPCS: 82370

== ENCOUNTER → 2019-04-01 14:44 | Outpatient (CLI) | payer MEDICARE, BC, SELFPAY ==
[2019-04-01 14:46] LABS: Microscopic, Urine URINE MICROSCOPIC (MICROSCOPIC)
--- NOTE | 2019-04-01 14:58 | XR_ITS ---
PROCEDURE: XR CHEST 2V CLINICAL HISTORY: WEAKNESS,DIZZINESS,CHILLS,COPD,ANEMIA, DMII COMPARISON: CXR CHEST(2 VIEWS-NOT PORTABLE) from 08/12/2016 CXR2V XR chest 2V from 04/17/2018 CXR2V XR chest 2V from 07/06/2018 FINDINGS: The cardiomediastinal silhouette and pulmonary vascularity are within normal limits. Bipolar pacemaker is present from left subclavian approach. Lungs are clear. No acute bony findings. IMPRESSION: No change with no acute finding Dictated by: Ab Martinez MD 04/01/2019 16:08 Electronically signed by Ab Martinez MD in [place] 04/01/2019 16:08
[2019-04-01 15:01] LABS: Appearance,Urine CLEAR (Clear); Bilirubin,Urine Negative (Negative); Blood, Urine Negative (Negative); Color,Urine YELLOW (Yellow); Glucose,Urine (UA) TRACE (Negative); Ketones,Urine Negative (Negative); Leukocyte Esterase,Urine Negative (Negative); Nitrate,Urine Negative (Negative); Protein,Urine TRACE (Negative); Specific Gravity, Urine 1.025 (1.005-1.030); Urobilinogen,Urine 0.2 EU/dl (0.2)
[2019-04-01 15:02] LABS: Basophils # 0.1 K/mm3 (0-0.2); Basophils % 1.1 % (0.1-2.0); Eosinophils # 0.3 K/mm3 (0.0-0.4); Eosinophils % 6.8 % (0.1-12.0); Hematocrit 39.8 % (42.0-52.0); Hemoglobin 12.3 g/dL (14.1-18.0); Lymphocytes # 0.8 K/mm3 (0.7-4.5); Lymphocytes % 16.7 % (10-50); Mean Corpuscular Hemoglobin 29.1 pg (27.0-31.2); Mean Corpuscular Volume 93.8 fl (80-94); Mean Platelet Volume 8.6 fl (7.4-10.4); Monocytes # 0.3 K/mm3 (0.1-1.0); Monocytes % 6.3 % (1.7-9.3); Neutrophils # 3.5 K/mm3 (1.8-7.8); Neutrophils % 69.2 % (37.0-80.0); Platelet Count 216 K/mm3 (142-424); Red Blood Count 4.25 M/mm3 (4.60-6.20); Red Cell Distribution Width 16.4 % (11.5-17.5)
[2019-04-01 15:14] LABS: Alanine Aminotransferase 166 U/L (12-78); Albumin Level 3.8 gm/dL (3.4-5.0); Alkaline Phosphatase 348 U/L (46-116); Amylase 51 U/L (25-115); Anion Gap 17.9 mEq/L (5-15); Aspartate Amino Transferase 118 U/L (15-37); Bacteria,Urine Trace /lpf; Blood Urea Nitrogen 28 mg/dL (7-18); Calcium 8.6 mg/dL (8.5-10.1); Carbon Dioxide 22 mmol/L (21.0-32.0); Chloride 104 mmol/L (98-107); Creatinine,Serum 2.13 mg/dL (0.70-1.30); Estimated Glomerular Filt Rate 30 ml/min (>60); GFR (African American) 36 ML/MIN (>60); Globulin 3.9 gm/dl (1.3-3.2); Glucose 145 mg/dL (74-106); Potassium 3.9 mmoL/L (3.5-5.1); Sodium 140 mmol/L (136-145); Total Protein,Serum 7.7 gm/dL (6.4-8.2)
== END ==
PROVIDERS: Visit Provider Internal Medicine
DX: D64.9 Anemia, unspecified (principal); R55 Syncope and collapse; R53.1 Weakness; J44.9 Chronic obstructive pulmonary disease, unspecified; R68.83 Chills (without fever); R63.0 Anorexia
CPT/HCPCS: 36415; 71046; 80053; 81001; 82150; 85025; 87040

== ENCOUNTER → 2019-04-02 07:48 | Outpatient (CLI) | payer MEDICARE, BC, SELFPAY ==
--- NOTE | 2019-04-02 07:51 | US_ITS ---
PROCEDURE: US ABDOMEN LIMITED CLINICAL INDICATION: ELEVATED LIVER ENZYMES, POOR APPETITE, EPIGASTRIC PAIN Min in COMPARISON: No exams were available for comparison FINDINGS: PANCREAS: Unremarkable. No obvious mass or abnormal fluid collection. No ductal dilatation LIVER: No focal liver lesions demonstrated. Homogeneous echogenicity. No intrahepatic biliary ductal dilatation evident. There is appropriate direction of blood flow within a non dilated portal vein RIGHT KIDNEY: Unremarkable. Normal size and echogenicity. No hydronephrosis GALLBLADDER: There is mild gallbladder distension with gallstones present. No gallbladder wall thickening, pericholecystic fluid, or biliary dilatation is evident. Common bile duct is 3 mm IMPRESSION: Cholelithiasis with mild gallbladder distention Dictated by: Ab Martinez MD 04/02/2019 08:54 Electronically signed by Ab Martinez MD in [place] 04/02/2019 08:54
== END ==
PROVIDERS: PCP Internal Medicine; Visit Provider Internal Medicine
DX: R74.8 Abnormal levels of other serum enzymes (principal); R63.0 Anorexia; R10.13 Epigastric pain
CPT/HCPCS: 76705

== ENCOUNTER → 2019-12-17 10:32 | Outpatient (CLI) | payer MEDICARE, BC, SELFPAY ==
--- NOTE | 2019-12-17 | ECG_ITS ---
APPROVED REPORT Exam: Resting ECG HR:70 bpm ECG Measurements Heart Rate 70 AXES SC 188 P 85 QRSd 184 QRS 120 QT 462 T -72 QTc 498 <Conclusion> Demand pacemaker, interpretation is based on intrinsic rhythm Sinus rhythm with premature atrial complexes with aberrant conduction Right axis deviation Left bundle branch block Abnormal ECG Electronically signed by : Markus Ramirez, 12/17/2019 14:04:35
[2019-12-17 11:18] LABS: Basophils # 0.1 K/mm3 (0-0.2); Basophils % 1.4 % (0.1-2.0); Eosinophils # 0.4 K/mm3 (0.0-0.4); Eosinophils % 6.2 % (0.1-12.0); Hematocrit 45.6 % (42.0-52.0); Lymphocytes # 1.2 K/mm3 (0.7-4.5); Lymphocytes % 19.9 % (10-50); Mean Corpuscular HGB Conc 32.9 g/dL (31.8-35.4); Mean Corpuscular Hemoglobin 30.8 pg (27.0-31.2); Mean Corpuscular Volume 93.7 fl (80-94); Mean Platelet Volume 7.6 fl (7.4-10.4); Monocytes # 0.4 K/mm3 (0.1-1.0); Monocytes % 6.4 % (1.7-9.3); Neutrophils # 4.1 K/mm3 (1.8-7.8); Platelet Count 181 K/mm3 (142-424); Red Blood Count 4.86 M/mm3 (4.60-6.20); Red Cell Distribution Width 15.4 % (11.5-17.5); White Blood Count 6.2 K/mm3 (4.8-10.8)
[2019-12-17 11:44] LABS: Chloride 105 mmol/L (98-107)
[2019-12-17 11:45] LABS: Potassium 4.8 mmoL/L (3.5-5.1); Sodium 138 mmol/L (136-145)
[2019-12-17 11:47] LABS: Blood Urea Nitrogen 30 mg/dl (9-20); Estimated Glomerular Filt Rate 29 ml/min (>60); GFR (African American) 35 ML/MIN (>60)
[2019-12-17 11:48] LABS: Anion Gap 16.8 mEq/L (5-15); Calcium 9.7 mg/dl (8.4-10.2); Carbon Dioxide 21 mmol/L (22.0-30.0); Glucose 163 mg/dl (74-100)
[2019-12-17 13:00] LABS: Coronavirus 19 IgG Antibody Negative (Negative); Coronavirus 19 IgM Antibody Negative (Negative)
== END ==
PROVIDERS: Visit Provider Otolaryngology
DX: Z01.818 Encounter for other preprocedural examination (principal)
CPT/HCPCS: 36415; 80048; 85025; 86328; 93005

== ENCOUNTER 2019-12-19 06:44 | Day surgery (SDC) | payer MEDICARE, BC, SELFPAY ==
--- NOTE | 2019-12-19 07:15 | P.PN_ITS ---
[facility] Anesthesia Checklist - Patient Identification Patient Identification: Arm Band, Verbal (Name & ) - Structural Data Admitted From: Home Planned Operative Procedure/s: exc. lesion Consent for Planned Operative Procedure(s) Verified: Yes Verified Documents: History and Physical - NPO Status Verified Time NPO: 00:00 - Chart Verification Results Verified: CBC, BMP - Additional verifications Patient : No Anesthesia Reactions: No Hx Blood Transfusions: No Blood Transfusion Reaction: Yes Cephalosporin Allergy: No Previous Colonoscopy: Yes - Cardiovascular Assessment Heart Sounds: S1 & S2 Pulse Strength: Baseline Pulse Rhythm: Regular Peripheral Edema: No - Airway Assessment Dentition: Edentulous - Neurological Assessment Level of Consciousness: Awake, Alert, Appropriate Hx Seizures: No Numbness or tingling in extremities: No - Anesthesia Plan Anesthesia Plan: Verified ASA Class: III Anesthesia Type: MAC [facility] History I have reviewed the patient's past medical history: Yes Medical History: Reports:: Atrial Fibrillation, Coronary Artery Disease, Diabetes Mellitus Type 2, Hyperlipidemia, Hypertension, Internal Pacemaker, Lung Disease, Kidney Stones, Myocardial Infarction Denies:: Cancer, Diabetes Mellitus Type 1, MRSA, Seizures *Have you ever received a pneumonia vaccine?: No *Have you received a flu vaccine this season?: No Other Medical History: Reports: Anemia, Arthritis, Blood Transfusion Reaction Anesthesia experience/problems:: none Other Surgeries: Yes: Cardiac Catheterization, Colonoscopy, Coronary Stent, EGD, Pacemaker, Other Amputation: No Fractures: No - *Social History Smoking Status: Current every day smoker Tobacco Type: cigarettes # Packs/Day (cigarettes): 1 Alcohol Intake: never Substance Use Type: denies use *Occupational Status:: retired Housing: house Household Members: family *Travel in the last 8 weeks: None Family Hx:: Cancer, Coronary Artery Disease, Heart Attack, Tuberculosis
[2019-12-19 07:16] VITALS: BP 137/75; PULSE 70; RESP 20; TEMP 36.9; O2SAT 98; BMI 29.8
[2019-12-19 07:17] LABS: POC Glucose,Bedside 167 (70-110)
[2019-12-19 09:20] VITALS: BP 128/73; PULSE 70; RESP 18; TEMP 36.1; O2SAT 98
[2019-12-19 09:30] VITALS: BP 118/98; PULSE 70; RESP 18; O2SAT 98
[2019-12-19 09:40] VITALS: BP 125/62; PULSE 70; RESP 18; O2SAT 98
[2019-12-19 10:10] VITALS: BP 128/76; PULSE 70; RESP 18; O2SAT 98
--- NOTE | 2019-12-19 11:16 | P.OP_ITS ---
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 The perilesional area was infiltrated with 3 cc of 2% lidocaine containing epinephrine. The reny out was incised and the lesion was excised and submitted. Anterior and posterior incisions were made and a tissue rearrangement geometric plastic repair was done with interrupted 4- 0 nylon sutures. after Surgicel snow was placed in the defect, all of the bleeding was stopped with bipolar cautery. A Dermabond dressing was applied and the patient was sent to recovery in good general condition. Condition: stable Disposition: PACU Complications:: none
== END 2019-12-19 09:55 | disposition home or self-care (01) ==
LOC: OR 06:46
PROVIDERS: PCP Internal Medicine; Visit Provider Otolaryngology
PROC: (CPT 14060; principal; 2019-12-19 08:15)
DX: I71.4 Abdominal aortic aneurysm, without rupture (principal); E11.9 Type 2 diabetes mellitus without complications; I10 Essential (primary) hypertension; E78.00 Pure hypercholesterolemia, unspecified; Z95.0 Presence of cardiac pacemaker; Z72.0 Tobacco use; I25.10 Atherosclerotic heart disease of native coronary artery without angina pectoris; Z87.442 Personal history of urinary calculi; I48.91 Unspecified atrial fibrillation; Z88.0 Allergy status to penicillin; Z79.899 Other long term (current) drug therapy; Z79.82 Long term (current) use of aspirin; C44.219 Basal cell carcinoma of skin of left ear and external auricular canal; I25.2 Old myocardial infarction
CPT/HCPCS: 14060; 82962; 88305; 96374; 96375

== ENCOUNTER 2019-12-21 20:39 | Inpatient (IN) | payer MEDICARE, BC, SELFPAY ==
[2019-12-21] VITALS (7 sets, daily range): BP systolic 111–140; BP diastolic 61–92; PULSE 60–88; RESP 16–22; TEMP 37; O2SAT 90–94; BMI 30.7; BMI 29.5
[2019-12-21 20:42] LABS: ABG Base Excess -4.1 mmol/L (-2.4-2.3); ABG HCO3 20.5 mmhg (22.0-26.0); ABG Oxygen Saturation 89 % (90-100); ABG PCO2 32.5 mmhg (35.0-45.0); ABG PH 7.42 mmol/L (7.35-7.45); ABG PO2 52.5 mmhg (80-100); ABG TCO2 21.5 mmhg (23-27); Allen's Test Y; Oxygen R/A %; Source R/R
--- NOTE | 2019-12-21 20:46 | ECG_ITS ---
APPROVED REPORT Exam: Resting ECG HR:88 bpm ECG Measurements Heart Rate 88 AXES MN 224 P QRSd 170 QRS -72 QT 440 T 125 QTc 532 <Conclusion> Demand pacemaker, PVC'S Abnormal ECG Electronically signed by : Raul Capone, 12/22/2019 19:22:15
--- NOTE | 2019-12-21 20:47 | XR_ITS ---
PROCEDURE: XR CHEST PORTABLE Patient Age:84Y CLINICAL HISTORY: SOB COMPARISON: ABDPELWO CT abdomen pelvis wo con from 01/09/2019 FINDINGS: Upright portable CXR Right basilar pneumonia Airspace disease/infiltrate at the right infrahilar region continues into the right lower lobe.. Left lung. Basically stable upper normal markings at the left lower lobe I believe her merely accentuated by today's higher contrast technique. The upper lobes appear mildly hyperexpanded but clear of and likely reflect some underlying COPD changes. Pacemaker overlies the left chest. It appears stable appearance with atrial and ventricular leads intact. Heart upper normal in size. Pulmonary vascularity is slightly more pronounced today than on 2018 and 2019 prior chest films of, but no prominent CHF. Bases only question some faint Pavan lines lateral no pleural effusions and chest wall unremarkable. IMPRESSION: Right lower lobe pneumonia Slight additional vascular engorgement today noted. Question few possible subtle pavan b lines. Features could reflect is subtle CHF correlation required. Heart upper normal size. Pacemaker. Dictated by: Sanjay Calvo MD 12/22/2019 09:25 Electronically signed by Sanjay Calvo MD in [place] 12/22/2019 09:25
[2019-12-21 20:57] LABS: Microscopic, Urine URINE MICROSCOPIC (MICROSCOPIC)
--- NOTE | 2019-12-21 21:04 | HMH.EDSOB ---
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 The time I documented below is in addition to time spent performing reported procedures but includes the following listed in this critical care notation. Medical Decision Making - Medical Records Medical records reviewed: Yes: I reviewed the patient's medical records. - Matthew Inquiry Pt receiving controlled substance: No Vital Signs: 12/21/19 20:39 12/21/19 20:51 12/21/19 21:09 Temperature 98.6 F Temperature Source Oral Pulse Rate 87 Pulse Rate [Left Radial] 86 74 Respiratory Rate 22 16 Blood Pressure [Right Arm] 140/92 H 114/66 Blood Pressure Mean [Right Arm] 108 82 Blood Pressure Source [Right Arm] Automatic Cuff Automatic Cuff Blood Pressure Position [Right Arm] Sitting Supine 02 Sat by Pulse Oximetry 90 L 94 L Oxygen Delivery Method Room Air Nasal Cannula Oxygen Flow Rate (LPM) 2 12/21/19 21:49 12/21/19 22:00 12/21/19 22:36 Temperature Temperature Source Pulse Rate Pulse Rate [Left Radial] 68 69 65 Respiratory Rate 16 18 16 Blood Pressure [Right Arm] 120/72 111/61 120/64 Blood Pressure Mean [Right Arm] 88 77 82 Blood Pressure Source [Right Arm] Manual Cuff/ Doppler Automatic Cuff Blood Pressure Position [Right Arm] Sitting Sitting 02 Sat by Pulse Oximetry 91 L 94 L 92 L Oxygen Delivery Method Room Air Room Air Room Air Oxygen Flow Rate (LPM) 12/21/19 23:00 Temperature Temperature Source Pulse Rate Pulse Rate [Left Radial] 60 Respiratory Rate 18 Blood Pressure [Right Arm] 122/65 Blood Pressure Mean [Right Arm] 84 Blood Pressure Source [Right Arm] Automatic Cuff Blood Pressure Position [Right Arm] Supine 02 Sat by Pulse Oximetry 93 L Oxygen Delivery Method Room Air Oxygen Flow Rate (LPM) - Lab Data Lab results reviewed: Yes: I reviewed the patient's lab results. Lab Results 12/21/19 20:30: Urine Color Yellow, Urine Appearance Clear, Urine pH 6.0, Ur Specific [place] 1.025, Urine Protein Negative, Urine Glucose (UA) Trace, Urine Ketones Negative, Urine Blood Negative, Urine Nitrate Negative, Urine Bilirubin Negative, Urine Urobilinogen 0.2, Ur Leukocyte Esterase Negative, Urine WBC 10-20, Ur Squamous Epith Cells 3-5 12/21/19 20:41: Specimen Source R/r, O2 % R/a, ABG pH 7.42, ABG pCO2 32.5 L, ABG pO2 52.5 L, ABG HCO3 20.5 L, ABG Total CO2 21.5 L, ABG O2 Saturation 89 L, ABG Base Excess -4.1 L, Ab Test Y 12/21/19 20:45: Troponin I 0.73 H 12/21/19 20:45: Lactate 1.3 12/21/19 20:45: WBC 15.0 H, RBC 4.16 L, Hgb 13.4 L, Hct 39.3 L, MCV 94.4 H, MCH 32.2 H, MCHC 34.0, RDW 15.9, Plt Count 188, MPV 8.0, Neut % (Auto) 83.4 H, Lymph % (Auto) 9.3 L, [place] % (Auto) 4.5, Eos % (Auto) 2.3, Baso % (Auto) 0.5, Neut # (Auto) 12.5 H, Lymph # (Auto) 1.4, [place] # (Auto) 0.7, Eos # (Auto) 0.3, Baso # (Auto) 0.1, Total Counted 100, Neutrophils % (Manual) 87 H, Band Neutrophils % 3.0, Lymphocytes % (Manual) 8 L, Monocytes % (Manual) 1 L, Eosinophils % (Manu
[2019-12-21 21:15] LABS: Basophils # 0.1 K/mm3 (0-0.2); Basophils % 0.5 % (0.1-2.0); Eosinophils # 0.3 K/mm3 (0.0-0.4); Eosinophils % 2.3 % (0.1-12.0); Hematocrit 39.3 % (42.0-52.0); Hemoglobin 13.4 g/dL (14.1-18.0); Lymphocytes # 1.4 K/mm3 (0.7-4.5); Lymphocytes % 9.3 % (10-50); Mean Corpuscular Hemoglobin 32.2 pg (27.0-31.2); Mean Corpuscular Volume 94.4 fl (80-94); Monocytes # 0.7 K/mm3 (0.1-1.0); Monocytes % 4.5 % (1.7-9.3); Neutrophils # 12.5 K/mm3 (1.8-7.8); Neutrophils % 83.4 % (37.0-80.0); Platelet Count 188 K/mm3 (142-424); Red Blood Count 4.16 M/mm3 (4.60-6.20); Red Cell Distribution Width 15.9 % (11.5-17.5)
[2019-12-21 21:23] LABS: MANUAL DIFFERENTIAL MANUAL DIFFERENTIAL (MANUAL DIFF)
[2019-12-21 21:27] LABS: Alanine Aminotransferase 25 U/L (12-78); Albumin Level 4.9 g/dl (3.5-5.0); Alkaline Phosphatase 93 U/L (38-126); Anion Gap 15.2 mEq/L (5-15); Aspartate Amino Transferase 49 U/L (17-59); Bilirubin,Total 0.8 mg/dl (0.2-1.3); Blood Urea Nitrogen 40 mg/dl (9-20); Calcium 9.1 mg/dl (8.4-10.2); Carbon Dioxide 22 mmol/L (22.0-30.0); Chloride 105 mmol/L (98-107); Creatinine Clearance Estimated 40 mL/min (50-200); Estimated Glomerular Filt Rate 32 ml/min (>60); GFR (African American) 39 ML/MIN (>60); Globulin 2.5 g/dL (1.3-3.2); Glucose 183 mg/dl (74-100); Lactic Acid 1.3 mmol/L (0.7-2.1); Potassium 4.2 mmoL/L (3.5-5.1); Sodium 138 mmol/L (136-145); Total Protein,Serum 7.4 g/dl (6.3-8.2)
[2019-12-21 21:27] LABS: Appearance,Urine CLEAR (Clear); Bilirubin,Urine Negative (Negative); Blood, Urine Negative (Negative); Color,Urine YELLOW (Yellow); Glucose,Urine (UA) TRACE (Negative); Ketones,Urine Negative (Negative); Leukocyte Esterase,Urine Negative (Negative); Nitrate,Urine Negative (Negative); Protein,Urine Negative (Negative); Specific Gravity, Urine 1.025 (1.005-1.030); Urobilinogen,Urine 0.2 EU/dl (0.2)
[2019-12-21 21:28] LABS: Eosinophils % 1 % (0-3); Lymphocytes % 8 % (10-50); Monocytes % 1 % (2-9); Neutrophils % 87 % (42-76); Platelet Estimate Normal; RBC Morphology Normal; Total Cells Counted 100
[2019-12-21 21:36] LABS: NT Pro Brain Natriuretic Pep. 1890 pg/mL (0-450)
[2019-12-21 21:46] LABS: Troponin I 0.73 ng/ml (0.00-0.034)
--- NOTE | 2019-12-21 21:46 | PC.NURSE ---
critical trop called from lab Dr Reynolds notified
[2019-12-21 21:54] LABS: Coronavirus 19 IgG Antibody Negative (Negative); Coronavirus 19 IgM Antibody Negative (Negative)
--- NOTE | 2019-12-21 23:50 | PC.NURSE ---
report given to HORACIO Guillen
[2019-12-22] VITALS (9 sets, daily range): BP systolic 99–130; BP diastolic 45–84; PULSE 59–85; RESP 16–24; TEMP 36.5–37.3; O2SAT 92–96; BMI 29.7
--- NOTE | 2019-12-22 00:05 | PC.NURSE ---
patient up to floor via stretcher.
[2019-12-22 00:44] LABS: Troponin I 0.71 ng/ml (0.00-0.034)
--- NOTE | 2019-12-22 01:14 | PC.NURSE ---
Addendum entered by Mindy Hewitt RN 12/22/19 03:58: Critical lab called from lab. 3rd troponin 0.63. MD Pardo stated previously to only notify him if 3rd troponin was >0.9 Original Note: Critical lab called from lab. 2nd troponin 0.71. MD Pardo notified. No new orders.
[2019-12-22 03:15] LABS: Basophils % 0.2 % (0.1-2.0); Eosinophils # 0.1 K/mm3 (0.0-0.4); Eosinophils % 0.6 % (0.1-12.0); Hematocrit 34.4 % (42.0-52.0); Lymphocytes # 0.7 K/mm3 (0.7-4.5); Lymphocytes % 5.5 % (10-50); Mean Corpuscular HGB Conc 33.3 g/dL (31.8-35.4); Mean Corpuscular Hemoglobin 31.1 pg (27.0-31.2); Mean Corpuscular Volume 93.3 fl (80-94); Mean Platelet Volume 8.5 fl (7.4-10.4); Monocytes # 0.5 K/mm3 (0.1-1.0); Monocytes % 3.5 % (1.7-9.3); Neutrophils % 90.2 % (37.0-80.0); Platelet Count 153 K/mm3 (142-424); Red Blood Count 3.68 M/mm3 (4.60-6.20); Red Cell Distribution Width 15.6 % (11.5-17.5); White Blood Count 13.4 K/mm3 (4.8-10.8)
[2019-12-22 03:18] LABS: Anion Gap 12.9 mEq/L (5-15); Blood Urea Nitrogen 41 mg/dl (9-20); Calcium 8.5 mg/dl (8.4-10.2); Carbon Dioxide 21 mmol/L (22.0-30.0); Chloride 106 mmol/L (98-107); Creatinine Clearance Estimated 38 mL/min (50-200); Estimated Glomerular Filt Rate 32 ml/min (>60); GFR (African American) 39 ML/MIN (>60); Hemoglobin 11.4 g/dL (14.1-18.0); Magnesium 2.2 mg/dl (1.6-2.3); Potassium 4.9 mmoL/L (3.5-5.1); Sodium 135 mmol/L (136-145)
[2019-12-22 03:42] LABS: Troponin I 0.63 ng/ml (0.00-0.034)
[2019-12-22 03:43] LABS: Glucose 258 mg/dl (74-100)
[2019-12-22 05:23] LABS: POC Glucose,Bedside 297 (70-110)
--- NOTE | 2019-12-22 05:42 | PC.NURSE ---
Pt came up to the unit this shift from ED for SOB, community aquired PNA, and SIRS. Daughter was at the pt's bedside when pt arrived. Pt is A&O x4 and can ambulate with standby assistance. Pt has used urinal at bedside and has voided dark yellow urine with a strong odor. VSS. Daughter will be back around breakfast. No complaints at this time, will continue to monitor.
--- NOTE | 2019-12-22 08:06 | HMH.PHAVTE ---
[facility] Pharmacy VTE Monitoring - Patient Demographics Admission date: 12/21/19 Report Date: 12/22/19 Time: 08:06 Allergies/Adverse Reactions: Patient Allergies penicillin G [PENICILLIN G] Allergy (Mild, Verified 12/21/19 21:19) Height: 1.8 m Weight: 96.303 kg Patient Problems: Current Active Problems Elevated troponin (Acute) Pacemaker-dependent due to [place] cardiac rhythm insufficient to support life (Chronic) Community acquired pneumonia (Acute) Acute exacerbation of chronic obstructive airways disease (Acute) Renal insufficiency (Chronic) Diabetes mellitus (Chronic) SIRS (systemic inflammatory response syndrome) (Acute) - VTE Risk Labs: VTE Related Lab Results Hgb 11.4 g/dL (14.1-18.0) L D 12/22/19 03:00 Hct 34.4 % (42.0-52.0) L 12/22/19 03:00 Plt Count 153 K/mm3 (142-424) 12/22/19 03:00 BUN 41 mg/dl (9-20) H 12/22/19 03:00 Creatinine 2.00 mg/dl (0.66-1.25) H 12/22/19 03:00 Estimated Creat Clear 38 mL/min (50-200) 12/22/19 03:00 VTE Risk Level: Moderate Risk - Prophylaxis VTE Prophylaxis Ordered?: Yes Types of VTE Prophylaxis: TEDS Knee High Location of Applied Device: Bilateral Lower Extremeties - VTE Diagnosis Confirmed Treatment or plan recommended: Continue Current Treatment
--- NOTE | 2019-12-22 08:42 | HMH.PHAINT ---
MEDICATION RECONCILIATION COMPLETED ON PATIENT USING PATIENT'S OWN RX BOTTLES AND INTERVIEW WITH PATIENT'S DAUGHTER. -EBEN QUINTANILLA, DELISAD
--- NOTE | 2019-12-22 09:02 | HMH.HP ---
*Admission Date: 12/21/19 *Chief complaint: SOA *History of present illness: 84-year-old gentleman with multiple comorbidities who usually sees Dr. Capone as an outpatient. He presented to the ER yesterday with worsening shortness of breath that felt like a asthma attack . Denies any fever, chest pain, nausea, vomiting. Is felt weak and short of breath. Upon presentation he was found to have tachypnea, elevated white count, and chest x-ray concerning for right lower lobe pneumonia. He additionally was noted to have an elevated troponin, chronic kidney disease with elevated creatinine of 2.0, and hypoxemia which is new for him. He was admitted to medicine for further management of sepsis, community-acquired pneumonia, and new onset acute hypoxemic respiratory failure. On exam this morning he states he is feeling somewhat better. The breathing treatment helped break it up . Sitting at bedside eating on interview with no oxygen on. Still appears quite weak and has a bit of a wet cough. Daughter at bedside. Questions answered. [facility] History I have reviewed the patient's past medical history: Yes Medical History: Reports:: Atrial Fibrillation, Coronary Artery Disease, Diabetes Mellitus Type 2, Hyperlipidemia, Hypertension, Internal Pacemaker, Lung Disease, Kidney Stones, Myocardial Infarction Denies:: Cancer, Diabetes Mellitus Type 1, MRSA, Seizures *Have you ever received a pneumonia vaccine?: Yes *Have you received a flu vaccine this season?: Yes Other Medical History: Reports: Anemia, Arthritis, Blood Transfusion Reaction Other Surgeries: Yes: Cardiac Catheterization, Colonoscopy, Coronary Stent, EGD, Pacemaker, Skin Cancer Excision, Other Amputation: No Fractures: No - *Social History Educational Level: Completed High School Smoking Status: Current every day smoker Tobacco Type: cigarettes # Packs/Day (cigarettes): 1 Alcohol Intake: never Substance Use Type: denies use *Occupational Status:: retired Housing: house Household Members: children *Travel in the last 8 weeks: None Family Hx:: Cancer, Coronary Artery Disease, Heart Attack, Hypertension, Tuberculosis Review of Systems - Review of Systems Review of systems:: pertinent systems reviewed and negative unless documented below (14 point review of systems performed, pertinent positives and negatives as per HPI) - *Neurologic Denies localized weakness, Denies seizure-like activity Meds Home Medications Medication Instructions Recorded Confirmed Type Amlodipine Besylate [Amlodipine 10 mg PO DAILY 07/06/18 12/21/19 History 10mg Tab] Multivit-Min/FA/Lycopen/Lutein 1 each PO DAILY 07/06/18 12/21/19 History [Centrum Silver Tablet] [place]-3S/Dha/Epa/Fish Oil [Fish 2 each PO BID 07/06/18 12/21/19 History Oil 1,000 mg Softgel] carvediloL [Carvedilol 12.5mg Tab] 12.5 mg PO BID 07/06/18 12/21/19 History glipiZIDE [Glipizide ER] 5 mg PO DAILY 07/06/18 12/21/19 History polyethylene glycoL 3350 [Miralax 17 gm PO DAILY 07/06/18 12/21/19 History Powder] Acetaminophen [Tylenol 500mg 1,000 mg PO Q4HP PRN 07/07/18 12/21/19 History tablet] Niacin 1,000 mg PO HS 07/07/18 12/21/19 History Rosuvastatin Calcium 10 mg PO HS 07/07/18 12/21/19 History Pantoprazole Sodium [Protonix 40mg 40 mg PO HS 07/11/18 12/22/19 History tablet] Aspirin [Aspirin 81mg EC Tab] 81 mg PO DAILY 01/18/19 12/21/19 History Hydrocodone/Acetaminophen 1 each PO DAILYP PRN 01/18/19 12/22/19 History [Hydrocodone-Acetamin 7.5-325] fluticasone furoate 100 1 puff IH DAILY 02/12/19 12/22/19 History mcg-vilanterol 25 mcg/dose inhalation powder Ascorbate Calcium [Vitamin C] 500 mg PO DAILY 12/22/19 12/22/19 History [place] Grass Extract/Quercetin 2 each PO DAILY 12/22/19 12/22/19 History [Prostate Pq Tablet] Zinc 25 mg PO HS 12/22/19 12/22/19 History Allergies Allergy/AdvReac Type Severity Reaction Status Date / Time penicillin G [PENICILLIN G] Allergy Mild Verified 12/21/19 21:1
[2019-12-22 10:50] LABS: POC Glucose,Bedside 258 (70-110)
--- NOTE | 2019-12-22 12:08 | PC.NURSE ---
configuration management administrator d/c at this time per Dr. Pardo.
[2019-12-22 16:24] LABS: POC Glucose,Bedside 247 (70-110)
--- NOTE | 2019-12-22 18:29 | PC.NURSE ---
Addendum entered by Layla Durand RN 12/22/19 18:34: ROOM AIR SATURATION MID 90'S. O2 WEANED THIS SHIFT Original Note: ALERT AND ORIENTED X4. PT HAS RESTED IN BED ENTIRE SHIFT WITH DAUGHTER AT BEDSIDE. PT DENIES PAIN. PT ENCOURAGED TO SHOWER, GET OUT OF BED, AND TO USE IS. PT HAS REFUSED TO BE COMPLIANT WITH ALL RECOMMENDED INVENTIONS. BM REPORTED THIS SHIFT. APPETITE AND PO INTAKE ADEQUATE. VSS. NO DISTRESS NOTED. SAFETY MEASURES IN PLACE. WILL CONTINUE TO MONITOR
[2019-12-22 20:39] LABS: POC Glucose,Bedside 220 (70-110)
[2019-12-23] VITALS (12 sets, daily range): BP systolic 102–138; BP diastolic 48–79; PULSE 60–77; RESP 16–20; TEMP 36.4–36.8; O2SAT 95–99; BMI 29.6
--- NOTE | 2019-12-23 03:26 | PC.NURSE ---
Pt has slept through the entire night. At the beginning of shift pt c/o of neck pain, meds administered per AUG. Pt has tolerated RA appropriately with sats in the upper 90's. No complaints at this time, will continue to monitor.
[2019-12-23 05:24] LABS: POC Glucose,Bedside 195 (70-110)
[2019-12-23 06:00] LABS: Basophils % 0.1 % (0.1-2.0); Eosinophils % 0.1 % (0.1-12.0); Hematocrit 34.1 % (42.0-52.0); Hemoglobin 11.4 g/dL (14.1-18.0); Mean Corpuscular HGB Conc 33.4 g/dL (31.8-35.4); Mean Corpuscular Hemoglobin 31.4 pg (27.0-31.2); Monocytes # 0.6 K/mm3 (0.1-1.0); Monocytes % 4.6 % (1.7-9.3); Neutrophils # 10.6 K/mm3 (1.8-7.8); Neutrophils % 87.2 % (37.0-80.0); Platelet Count 159 K/mm3 (142-424); Red Blood Count 3.63 M/mm3 (4.60-6.20); Red Cell Distribution Width 15.4 % (11.5-17.5); White Blood Count 12.2 K/mm3 (4.8-10.8)
[2019-12-23 06:03] LABS: MANUAL DIFFERENTIAL MANUAL DIFFERENTIAL (MANUAL DIFF)
[2019-12-23 06:07] LABS: Alanine Aminotransferase 26 U/L (12-78); Albumin Level 4.2 g/dl (3.5-5.0); Albumin/Globulin Ratio 1.8 (1.1-1.8); Alkaline Phosphatase 73 U/L (38-126); Anion Gap 12.4 mEq/L (5-15); Aspartate Amino Transferase 30 U/L (17-59); Blood Urea Nitrogen 44 mg/dl (9-20); Calcium 8.5 mg/dl (8.4-10.2); Carbon Dioxide 23 mmol/L (22.0-30.0); Chloride 105 mmol/L (98-107); Creatinine Clearance Estimated 36 mL/min (50-200); Estimated Glomerular Filt Rate 30 ml/min (>60); GFR (African American) 37 ML/MIN (>60); Globulin 2.4 g/dL (1.3-3.2); Glucose 179 mg/dl (74-100); Potassium 4.4 mmoL/L (3.5-5.1); Sodium 136 mmol/L (136-145); Total Protein,Serum 6.6 g/dl (6.3-8.2)
[2019-12-23 06:11] LABS: Magnesium 2.5 mg/dl (1.6-2.3)
[2019-12-23 06:59] LABS: Lymphocytes % 9 % (10-50); Neutrophils % 86 % (42-76); Platelet Estimate Normal; RBC Morphology Normal; Total Cells Counted 100
--- NOTE | 2019-12-23 08:29 | HMH.ACPN2 ---
Internal Medicine - PN: Subj *Date: 12/23/19 *Time: 08:29 Interval history: Overall patient feels pretty good. He has no complaints except he notes that he starting to cough up mucus when he gets a breathing treatment. No fever, no significant dyspnea at rest, able to lie flat without dyspnea Exam Vital signs and Labs for Last 24 Hours: Temp Pulse Resp BP Pulse Ox 98.0 F 70 20 121/70 99 12/23/19 07:48 12/23/19 07:48 12/23/19 07:48 12/23/19 07:48 12/23/19 07:48 Laboratory Results - last 24 hr 12/22/19 10:42: POC Glucose 258 H 12/22/19 16:11: POC Glucose 247 H 12/22/19 20:09: POC Glucose 220 H 12/23/19 05:07: POC Glucose 195 H 12/23/19 05:32: WBC 12.2 H, RBC 3.63 L, Hgb 11.4 L, Hct 34.1 L, MCV 94.0, MCH 31.4 H, MCHC 33.4, RDW 15.4, Plt Count 159, MPV 8.0, Neut % (Auto) 87.2 H, Lymph % (Auto) 8.0 L, [place] % (Auto) 4.6, Eos % (Auto) 0.1, Baso % (Auto) 0.1, Neut # (Auto) 10.6 H, Lymph # (Auto) 1.0, [place] # (Auto) 0.6, Eos # (Auto) 0.0, Baso # (Auto) 0.0, Total Counted 100, Neutrophils % (Manual) 86 H, Band Neutrophils % 5.0, Lymphocytes % (Manual) 9 L, Platelet Estimate Normal, RBC Morphology Normal 12/23/19 05:32: Sodium 136, Potassium 4.4, Chloride 105, Carbon Dioxide 23, Anion Gap 12.4, BUN 44 H, Creatinine 2.10 H, Estimated Creat Clear 36, Estimated GFR 30 L, Est GFR ( Amer) 37 L, Glucose 179 H, Calcium 8.5, Magnesium 2.5 H D, Total Bilirubin 1.0, AST 30 D, ALT 26, Alkaline Phosphatase 73, Total Protein 6.6, Albumin 4.2 D, Globulin 2.4, Albumin/Globulin Ratio 1.8 I & O for Last 24 hours: Intake & Output 12/20/19 12/21/19 12/22/19 12/23/19 11:59 11:59 11:59 11:59 Intake Total 1100 / 1100 840 / 840 Balance 1100 / 1100 840 / 840 Weight 212 lb 5 oz Microbiology Reports for the Last 24 Hours: Microbiology 12/21/19 20:30 Urine,Clean Catch Urine Culture - Final Multiple organisms, suggests contamination. Narrative: Alert, appears vigorous, appears younger than his stated age. Lungs have good air movement, minimal rhonchi but no tightness or wheezing. Heart rate regular. ENT exam clear. Neurologic exam nonfocal. Abdomen soft Perfusion normal. Assessment and Plan (1) Sepsis Current visit: No Status: Acute Qualifiers: Sepsis type: sepsis due to unspecified organism Acute respiratory failure type: with hypoxia Severe sepsis shock status: without septic shock Category: Medical Code(s): A41.9 - Sepsis, unspecified organism (2) Community acquired pneumonia Current visit: Yes Status: Acute Qualifiers: Laterality: right Lung location: lower lobe of lung Qualified Code(s): J18.9 - Pneumonia, unspecified organism Category: Medical Code(s): J18.9 - Pneumonia, unspecified organism (3) Elevated troponin Current visit: Yes Status: Acute Category: Medical Code(s): R74.8 - Abnormal levels of other serum enzymes (4) Diabetes mellitus Current visit: Yes Status: Chronic Qualifiers: Diabetes mellitus type: type 2 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: unspecified bank teller machine mechanic insulin use status Diabetes mellitus complication status: with other specified complication Qualified Code(s): E11.69 - Type 2 diabetes mellitus with other specified complication Category: Medical Code(s): E11.9 - Type 2 diabetes mellitus without complications (5) Pacemaker-dependent due to [place] cardiac rhythm insufficient to support life Current visit: Yes Status: Chronic Category: Medical Code(s): I49.8 - Other specified cardiac arrhythmias; Z95.0 - Presence of cardiac pacemaker (6) Atrial fibrillation Current visit: No Status: Chronic Qualifiers: Atrial fibrillation type: chronic Category: Medical Code(s): I48.91 - Unspecified atrial fibrillation (7) Coronary artery disease Current visit: No Status: Chronic Qualifiers: Coronary Disease-Associated Artery/Lesion type: nativ
[2019-12-23 12:19] LABS: POC Glucose,Bedside 164 (70-110)
--- NOTE | 2019-12-23 16:05 | HMH.ACPN2 ---
Internal Medicine - PN: Subj *Date: 12/23/19 *Time: 16:05 Interval history: Echocardiogram returned today showing EF 35% which makes sense given his oxygen requirement and chest x-ray findings. Discussed case with daughter and patient. He has had no communication from his costing analyst in the past that he has CHF. I have a record deficit. Discussed plan to give IV Lasix today, consider lisinopril tomorrow before discharge. Exam Vital signs and Labs for Last 24 Hours: Temp Pulse Resp BP Pulse Ox 97.7 F 69 16 138/76 95 12/23/19 15:30 12/23/19 15:30 12/23/19 15:30 12/23/19 15:30 12/23/19 15:30 Laboratory Results - last 24 hr 12/22/19 16:11: POC Glucose 247 H 12/22/19 20:09: POC Glucose 220 H 12/23/19 05:07: POC Glucose 195 H 12/23/19 05:32: WBC 12.2 H, RBC 3.63 L, Hgb 11.4 L, Hct 34.1 L, MCV 94.0, MCH 31.4 H, MCHC 33.4, RDW 15.4, Plt Count 159, MPV 8.0, Neut % (Auto) 87.2 H, Lymph % (Auto) 8.0 L, [place] % (Auto) 4.6, Eos % (Auto) 0.1, Baso % (Auto) 0.1, Neut # (Auto) 10.6 H, Lymph # (Auto) 1.0, [place] # (Auto) 0.6, Eos # (Auto) 0.0, Baso # (Auto) 0.0, Total Counted 100, Neutrophils % (Manual) 86 H, Band Neutrophils % 5.0, Lymphocytes % (Manual) 9 L, Platelet Estimate Normal, RBC Morphology Normal 12/23/19 05:32: Sodium 136, Potassium 4.4, Chloride 105, Carbon Dioxide 23, Anion Gap 12.4, BUN 44 H, Creatinine 2.10 H, Estimated Creat Clear 36, Estimated GFR 30 L, Est GFR ( Amer) 37 L, Glucose 179 H, Calcium 8.5, Magnesium 2.5 H D, Total Bilirubin 1.0, AST 30 D, ALT 26, Alkaline Phosphatase 73, Total Protein 6.6, Albumin 4.2 D, Globulin 2.4, Albumin/Globulin Ratio 1.8 12/23/19 12:04: POC Glucose 164 H I & O for Last 24 hours: Intake & Output 12/21/19 12/22/19 12/23/19 12/24/19 11:59 11:59 11:59 11:59 Intake Total 1100 / 1100 840 / 840 840 / 840 Balance 1100 / 1100 840 / 840 840 / 840 Weight 212 lb 5 oz 211 lb 10.3 oz Microbiology Reports for the Last 24 Hours: Microbiology 12/21/19 20:30 Urine,Clean Catch Urine Culture - Final Multiple organisms, suggests contamination. Narrative: Unchanged since this morning Assessment and Plan (1) Sepsis Current visit: No Status: Acute Qualifiers: Sepsis type: sepsis due to unspecified organism Acute respiratory failure type: with hypoxia Severe sepsis shock status: without septic shock Category: Medical Code(s): A41.9 - Sepsis, unspecified organism (2) Community acquired pneumonia Current visit: Yes Status: Acute Qualifiers: Laterality: right Lung location: lower lobe of lung Qualified Code(s): J18.9 - Pneumonia, unspecified organism Category: Medical Code(s): J18.9 - Pneumonia, unspecified organism (3) Elevated troponin Current visit: Yes Status: Acute Category: Medical Code(s): R74.8 - Abnormal levels of other serum enzymes (4) Diabetes mellitus Current visit: Yes Status: Chronic Qualifiers: Diabetes mellitus type: type 2 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 harvesting supervisor insulin use status Diabetes mellitus complication status: with other specified complication Qualified Code(s): E11.69 - Type 2 diabetes mellitus with other specified complication Category: Medical Code(s): E11.9 - Type 2 diabetes mellitus without complications (5) Pacemaker-dependent due to [place] cardiac rhythm insufficient to support life Current visit: Yes Status: Chronic Category: Medical Code(s): I49.8 - Other specified cardiac arrhythmias; Z95.0 - Presence of cardiac pacemaker (6) Atrial fibrillation Current visit: No Status: Chronic Qualifiers: Atrial fibrillation type: chronic Category: Medical Code(s): I48.91 - Unspecified atrial fibrillation (7) Coronary artery disease Current visit: No Status: Chronic Qualifiers: Coronary Disease-Associated Artery/Lesion type: [place] artery [place] vs. transplanted heart: [place]
[2019-12-23 17:20] LABS: POC Glucose,Bedside 142 (70-110)
--- NOTE | 2019-12-23 19:17 | PC.NURSE ---
report given to mirta
--- NOTE | 2019-12-23 20:05 | PC.NURSE ---
Pt alert and oriented and able to make needs known. Pt has continued to do well on RA. VSS. CB in reach. Meds given per mar. Daughter has been at bedside intermittently this shift. Pt states he has voided x 4 times since lasix IV per aug.
[2019-12-23 21:51] LABS: POC Glucose,Bedside 175 (70-110)
[2019-12-24 04:00] VITALS: BP 119/59; PULSE 62; RESP 16; TEMP 36.4; O2SAT 94
--- NOTE | 2019-12-24 04:31 | PC.NURSE ---
A&OX4. PT TOLERATING RA WELL T/O SHIFT. PT HAS HAD NO C/O SOA OR COUGHING THIS SHIFT. PT HAS HAD NO C/O CP. PT HAS ONLY C/O NECK PAIN THIS SHIFT, REQUESTING TYLENOL. ON REASSESSMENT, PT RESTING IN BED WITH EYES CLOSED. PT UP INDEPENDENTLY IN ROOM THIS SHIFT. PT HAS RESTED WELL T/O SHIFT, VSS WILL CONTINUE TO MONITOR.
[2019-12-24 04:51] VITALS: BMI 29.1
[2019-12-24 05:40] LABS: POC Glucose,Bedside 148 (70-110)
[2019-12-24 06:08] VITALS: PULSE 75; PULSE 76
[2019-12-24 07:04] LABS: Basophils % 0.1 % (0.1-2.0); Eosinophils # 0.3 K/mm3 (0.0-0.4); Eosinophils % 3.2 % (0.1-12.0); Hemoglobin 11.9 g/dL (14.1-18.0); Lymphocytes # 0.9 K/mm3 (0.7-4.5); Lymphocytes % 8.4 % (10-50); Mean Corpuscular Hemoglobin 31.5 pg (27.0-31.2); Mean Corpuscular Volume 95.3 fl (80-94); Mean Platelet Volume 9.8 fl (7.4-10.4); Monocytes # 0.5 K/mm3 (0.1-1.0); Monocytes % 4.6 % (1.7-9.3); Neutrophils # 8.4 K/mm3 (1.8-7.8); Neutrophils % 83.6 % (37.0-80.0); Platelet Count 175 K/mm3 (142-424); Red Blood Count 3.77 M/mm3 (4.60-6.20); Red Cell Distribution Width 15.3 % (11.5-17.5); White Blood Count 10.1 K/mm3 (4.8-10.8)
[2019-12-24 07:09] LABS: Chloride 106 mmol/L (98-107); Potassium 3.9 mmoL/L (3.5-5.1); Sodium 139 mmol/L (136-145)
[2019-12-24 07:12] LABS: Alanine Aminotransferase 28 U/L (12-78); Albumin Level 4.1 g/dl (3.5-5.0); Albumin/Globulin Ratio 1.7 (1.1-1.8); Alkaline Phosphatase 67 U/L (38-126); Anion Gap 12.9 mEq/L (5-15); Aspartate Amino Transferase 23 U/L (17-59); Bilirubin,Total 1.9 mg/dl (0.2-1.3); Blood Urea Nitrogen 40 mg/dl (9-20); Calcium 8.8 mg/dl (8.4-10.2); Carbon Dioxide 24 mmol/L (22.0-30.0); Creatinine Clearance Estimated 37 mL/min (50-200); Estimated Glomerular Filt Rate 32 ml/min (>60); GFR (African American) 39 ML/MIN (>60); Globulin 2.4 g/dL (1.3-3.2); Glucose 156 mg/dl (74-100); Total Protein,Serum 6.5 g/dl (6.3-8.2)
[2019-12-24 07:17] VITALS: BP 121/70; PULSE 69; RESP 18; TEMP 36.9; O2SAT 95
--- NOTE | 2019-12-24 07:56 | HMH.HP ---
*Admission Date: 12/21/19 *History of present illness: 84-year-old gentleman with multiple comorbidities who usually sees Dr. Capone as an outpatient. He presented to the ER yesterday with worsening shortness of breath that felt like a asthma attack . Denies any fever, chest pain, nausea, vomiting. Is felt weak and short of breath. Upon presentation he was found to have tachypnea, elevated white count, and chest x-ray concerning for right lower lobe pneumonia. He additionally was noted to have an elevated troponin, chronic kidney disease with elevated creatinine of 2.0, and hypoxemia which is new for him. He was admitted to medicine for further management of sepsis, community-acquired pneumonia, and new onset acute hypoxemic respiratory failure. On exam this morning he states he is feeling somewhat better. The breathing treatment helped break it up . Sitting at bedside eating on interview with no oxygen on. Still appears quite weak and has a bit of a wet cough. Daughter at bedside. Questions answered. [facility] History Medical History: Reports:: Atrial Fibrillation, Coronary Artery Disease, Diabetes Mellitus Type 2, Hyperlipidemia, Hypertension, Internal Pacemaker, Lung Disease, Kidney Stones, Myocardial Infarction Denies:: Cancer, Diabetes Mellitus Type 1, MRSA, Seizures *Have you ever received a pneumonia vaccine?: Yes *Have you received a flu vaccine this season?: Yes Other Medical History: Reports: Anemia, Arthritis, Blood Transfusion Reaction Other Surgeries: Yes: Cardiac Catheterization, Colonoscopy, Coronary Stent, EGD, Pacemaker, Skin Cancer Excision, Other Amputation: No Fractures: No - *Social History Educational Level: Completed High School Smoking Status: Current every day smoker Tobacco Type: cigarettes # Packs/Day (cigarettes): 1 Alcohol Intake: never Substance Use Type: denies use *Occupational Status:: retired Housing: house Household Members: children *Travel in the last 8 weeks: None Family Hx:: Cancer, Coronary Artery Disease, Heart Attack, Hypertension, Tuberculosis Review of Systems - *Neurologic Denies localized weakness, Denies seizure-like activity Meds Home Medications Medication Instructions Recorded Confirmed Type Amlodipine Besylate [Amlodipine 10 mg PO DAILY 07/06/18 12/21/19 History 10mg Tab] Multivit-Min/FA/Lycopen/Lutein 1 each PO DAILY 07/06/18 12/21/19 History [Centrum Silver Tablet] [place]-3S/Dha/Epa/Fish Oil [Fish 2 each PO BID 07/06/18 12/21/19 History Oil 1,000 mg Softgel] carvediloL [Carvedilol 12.5mg Tab] 12.5 mg PO BID 07/06/18 12/21/19 History glipiZIDE [Glipizide ER] 5 mg PO DAILY 07/06/18 12/21/19 History polyethylene glycoL 3350 [Miralax 17 gm PO DAILY 07/06/18 12/21/19 History Powder] Acetaminophen [Tylenol 500mg 1,000 mg PO Q4HP PRN 07/07/18 12/21/19 History tablet] Niacin 1,000 mg PO HS 07/07/18 12/21/19 History Rosuvastatin Calcium 10 mg PO HS 07/07/18 12/21/19 History Pantoprazole Sodium [Protonix 40mg 40 mg PO HS 07/11/18 12/22/19 History tablet] Aspirin [Aspirin 81mg EC Tab] 81 mg PO DAILY 01/18/19 12/21/19 History Hydrocodone/Acetaminophen 1 each PO DAILYP PRN 01/18/19 12/22/19 History [Hydrocodone-Acetamin 7.5-325] fluticasone furoate 100 1 puff IH DAILY 02/12/19 12/22/19 History mcg-vilanterol 25 mcg/dose inhalation powder Ascorbate Calcium [Vitamin C] 500 mg PO DAILY 12/22/19 12/22/19 History [place] Grass Extract/Quercetin 2 each PO DAILY 12/22/19 12/22/19 History [Prostate Pq Tablet] Zinc 25 mg PO HS 12/22/19 12/22/19 History Allergies Allergy/AdvReac Type Severity Reaction Status Date / Time penicillin G [PENICILLIN G] Allergy Mild Verified 12/21/19 21:19 Exam Vital signs and Labs for Last 24 Hours: Temp Pulse Resp BP Pulse Ox 98.5 F 69 18 121/70 95 12/24/19 07:17 12/24/19 07:17 12/24/19 07:17 12/24/19 07:17 12/24/19 07:17 Laboratory Results - last 24 hr 12/23/19 12:04: POC Glucose 164
--- NOTE | 2019-12-24 07:57 | HMH.DCSUM ---
General - General Admission date:: 12/22/19 Discharge date: 12/24/19 HPI HPI: 84-year-old gentleman with multiple comorbidities who usually sees Dr. Capone as an outpatient. He presented to the ER yesterday with worsening shortness of breath that felt like a asthma attack . Denies any fever, chest pain, nausea, vomiting. Is felt weak and short of breath. Upon presentation he was found to have tachypnea, elevated white count, and chest x-ray concerning for right lower lobe pneumonia. He additionally was noted to have an elevated troponin, chronic kidney disease with elevated creatinine of 2.0, and hypoxemia which is new for him. He was admitted to medicine for further management of sepsis, community-acquired pneumonia, and new onset acute hypoxemic respiratory failure. On exam this morning he states he is feeling somewhat better. The breathing treatment helped break it up . Sitting at bedside eating on interview with no oxygen on. Still appears quite weak and has a bit of a wet cough. Daughter at bedside. Questions answered. Hospital Course Hospital Course: Mr. Ny was admitted with acute worsening shortness of breath. On admission found to have kidney injury, elevated troponin with no EKG changes, new oxygen requirement, and concern for pneumonia on chest imaging. He was initiated on antibiotics per sepsis protocol and fluid resuscitation. Patient improved over the next 2 days during hospitalization with normalization of his kidney function however continue to require oxygen. Further assessment with echocardiogram showed reduced ejection fraction of 35% and he was noted to have an elevated BNP. Given that he came in with these findings, it is felt that he had a combination of acute on chronic CHF in conjunction with other diagnoses. He was subsequently diuresed and able to wean down on his oxygen requirement. Adjustments made to medication (please see discharge medication list) to assist in fluid management. Patient stable at time of discharge. Meeting criteria for going home. Plan to complete treatment for pneumonia, changes to CHF regimen, and close follow-up with his primary care. Chest pain, nausea, vomiting, diarrhea. Still complains of some fatigue and dyspnea but no O2 requirement at this time. Objective Vital signs: Temp Pulse Resp BP Pulse Ox 98.5 F 69 18 121/70 95 12/24/19 07:17 12/24/19 07:17 12/24/19 07:17 12/24/19 07:17 12/24/19 07:17 Narrative: - Constitutional NAD, stable on Room air - *Routine HEENT Exam Head: Present: normocephalic Eye: Present: EOMI, PERRL ENT: Present: mucous membranes moist - *Routine Neck Exam Present: supple. Absent: lymphadenopathy - *Routine Respiratory Exam Comments: Good air movement bilaterally, No wheeze, crackles, or rhonchi - *Routine Cardiovascular Exam Present: RRR - *Routine Abdominal Exam Present: soft, normoactive bowel sounds. Absent: tenderness - *Routine Extremities Exam Absent: cyanosis, clubbing, edema - *Routine Skin Exam Present: pallor, warm. Absent: rash - *Routine Neurological Exam Present: alert, oriented X3 Results Labs on day of discharge: Labs from last 24 hours 12/24/19 12/24/19 12/24/19 06:57 06:57 05:18 WBC 10.1 RBC 3.77 L Hgb 11.9 L Hct 36.0 L MCV 95.3 H MCH 31.5 H MCHC 33.0 RDW 15.3 Plt Count 175 MPV 9.8 Neut % (Auto) 83.6 H Lymph % (Auto) 8.4 L [place] % (Auto) 4.6 Eos % (Auto) 3.2 Baso % (Auto) 0.1 Neut # (Auto) 8.4 H Lymph # (Auto) 0.9 [place] # (Auto) 0.5 Eos # (Auto) 0.3 Baso # (Auto) 0.0 Sodium 139 Potassium 3.9 Chloride 106 Carbon Dioxide 24 Anion Gap 12.9 BUN 40 H Creatinine 2.00 H Estimated Creat Clear 37 Estimated GFR 32 L Est GFR ( Amer) 39 L Glucose 156 H POC Glucose 148 H Calcium 8.8 Total Bilirubin 1.9 H AST 23 ALT 28 Alkaline Phosp
--- NOTE | 2019-12-24 09:31 | HMH.PHAINT ---
PATIENT WAS COUNSELED ON NEW MEDICATIONS: LASIX AND OMNICEF. THE PATIENT DID NOT HAVE ANY QUESTIONS. PRESCRIPTIONS WERE SENT TO CLINIC PHARMACY AND ALL REGULAR HOME MEDICATIONS WILL BE CONTINUED.
== END 2019-12-24 10:09 | disposition home or self-care (01) | DRG 871 ==
LOC: ER 20:53 → 2ND 23:29
PROVIDERS: Internal Medicine Adolescent Medicine; Admitting Provider Internal Medicine Adolescent Medicine; Emergency Provider Emergency Medicine; Visit Provider Internal Medicine Adolescent Medicine
DX: A41.9 Sepsis, unspecified organism (principal); J18.9 Pneumonia, unspecified organism; I50.23 Acute on chronic systolic (congestive) heart failure; J96.01 Acute respiratory failure with hypoxia; I21.A1 Myocardial infarction type 2; I48.20 Chronic atrial fibrillation, unspecified; I13.0 Hypertensive heart and chronic kidney disease with heart failure and stage 1 through stage 4 chronic kidney disease, or unspecified chronic kidney disease; R65.20 Severe sepsis without septic shock; D64.9 Anemia, unspecified; Z95.0 Presence of cardiac pacemaker; E11.22 Type 2 diabetes mellitus with diabetic chronic kidney disease; I25.10 Atherosclerotic heart disease of native coronary artery without angina pectoris; N18.3 Chronic kidney disease, stage 3 (moderate); Z88.0 Allergy status to penicillin; Z79.51 Long term (current) use of inhaled steroids; Z79.82 Long term (current) use of aspirin; Z79.84 Long term (current) use of oral hypoglycemic drugs; Z79.899 Other long term (current) drug therapy; J44.9 Chronic obstructive pulmonary disease, unspecified; Z95.5 Presence of coronary angioplasty implant and graft; Z72.0 Tobacco use
CPT/HCPCS: 36415; 71045; 80048; 80053; 81001; 82803; 82962; 83605; 83735; 83880; 84484; 85007; 85025; 86328; 87040; 87070; 87086; 87205; 88305; 93005; 93306; 94640; 94760; 94761; 96365; 96367; 96374; 96375; 99285; J0456

== ENCOUNTER → 2020-02-21 16:33 | Outpatient (CLI) | payer MEDICARE, BC, SELFPAY ==
--- NOTE | 2020-02-21 16:51 | XR_ITS ---
PROCEDURE: XR CHEST 2V CLINICAL HISTORY: COPD, S/P PNEUMONIA COMPARISON: CR CXR2V XR chest 2V from 07/06/2018 CR XR CHEST 2V from 04/01/2019 CR XR CHEST PORTABLE from 12/21/2019 FINDINGS: The cardiomediastinal silhouette and pulmonary vascularity are within normal limits. There is a bipolar pacemaker present from left subclavian approach. Leads appear to be in good position. The lungs are clear bilaterally. No acute bony findings. IMPRESSION: No acute findings. Dictated by: Ab Martinez MD 02/21/2020 17:05 Ab Martinez MD in [place] 02/21/2020 17:05
== END ==
PROVIDERS: PCP Internal Medicine; Visit Provider Internal Medicine
DX: J18.9 Pneumonia, unspecified organism (principal); J44.9 Chronic obstructive pulmonary disease, unspecified
CPT/HCPCS: 71046

== ENCOUNTER 2020-09-09 15:14 | Emergency (ER) | payer MEDICARE, BC, SELFPAY ==
[2020-09-09] VITALS (7 sets, daily range): BP systolic 151–173; BP diastolic 75–106; PULSE 70–81; RESP 18–19; TEMP 36.6–36.7; O2SAT 96–98; BMI 29.9
--- NOTE | 2020-09-09 15:17 | HMH.EDGENADL ---
ED Disposition Clinical Impression: Laceration Crush injury to finger Qualifiers: Encounter type: initial encounter Qualified Code(s): S67.10XA - Crushing injury of unspecified finger(s), initial encounter Disposition: Home, Self-Care Condition on Discharge: Good Referrals: Raul Capone [Primary Care Provider] - 3 days Erik Zhao MD [Staff Physician] - 3 days Time of Disposition: 16:54 - Critical Care Critical Care Time: No Attestation: On , the high probability of a clinically significant, sudden or life threatening deterioration of the following system(s) required my full and direct attention, intervention and personal management. The time I documented below is in addition to time spent performing reported procedures but includes the following listed in this critical care notation. Medical Decision Making - Medical Records Medical records reviewed: Yes: I reviewed the patient's medical records. - Matthew Inquiry Pt receiving controlled substance: No Vital Signs: 09/09/20 15:15 Temperature 97.9 F Temperature Source Oral Pulse Rate [Left Radial] 72 Respiratory Rate 18 Blood Pressure [Left Arm] 173/77 H Blood Pressure Mean [Left Arm] 109 Blood Pressure Source [Left Arm] Automatic Cuff Blood Pressure Position [Left Arm] Sitting 02 Sat by Pulse Oximetry 98 Oxygen Delivery Method Room Air Orders (Tests/Meds): ED MEDICATIONS Discontinued Medications Generic Name Dose Route Start Last Admin Trade Name Freq PRN Reason Stop Dose Admin Lidocaine HCl 5 ml 09/09/20 15:29 09/09/20 15:30 Lidocaine 1% 5ml Pf Vial IJ 09/09/20 15:30 5 ml ONCE ONE Administration Tetanus/Reduced Diphtheria/Acell Pertussis 0.5 ml 09/09/20 15:18 09/09/20 15:26 Tet/Diphth/Pert-Adult 0.5ml Syringe IM 09/09/20 15:19 0.5 ml .ONCE ONE Administration - Radiology Data #1 Image(s): Finger(s)/Thumb Image Reviewed: Yes I reviewed the patient's radiology image, Yes I have reviewed radiologist's interpretation Preliminary Findings: Abnormal Comminuted, nondisplaced fracture of the distal phalanx right ring finger. Medical Decision Narrative: 84yo M evaluated for crush injury to the right ring finger. Obvious laceration. Patient's ring was removed without difficulty. Patient was sent for x-rays confirming fracture. Case was discussed with orthopedics and they were okay with the plan to primarily close the wound and send the patient on antibiotics with close follow-up in the clinic. This was relayed to the patient. See procedure note for details of wound closure. It appears some skin was removed in the initial injury and therefore complete closure was not possible. Patient tolerated procedure well. He was discharged home in stable condition. Counseled on wound care and return to the emergency department parameters. General Adult HPI - General Stated complaint: AO cut third R finger on garage door 1430 Time Seen by Provider: 09/09/20 15:17 Mode of Arrival: Ambulatory - History of Present Illness HPI narrative: 84yo M presents to the emergency department secondary to crush injury to his right ring finger. Patient reports he got his finger caught in the garage door. Patient takes a blood thinner. Denies any other injury. - Related Data Home Medications Medication Instructions Recorded Confirmed Amlodipine Besylate [Amlodipine 10 mg PO DAILY 07/06/18 04/07/20 10mg Tab] Multivit-Min/FA/Lycopen/Lutein 1 each PO DAILY 07/06/18 04/07/20 [Centrum Silver Tablet] [place]-3S/Dha/Epa/Fish Oil [Fish 2 each PO BID 07/06/18 04/07/20 Oil 1,000 mg Softgel] carvediloL [Carvedilol 12.5mg Tab] 12.5 mg PO BID 07/06/18 04/07/20 glipiZIDE [Glipizide ER] 5 mg PO DAILY 07/06/18 04/07/20 polyethylene glycoL 3350 [Miralax 17 gm PO DAILY 07/06/18 04/07/20 Powder] Acetaminophen [Tylenol 500mg 1,000 mg PO Q4HP PRN 07/07/18 04/07/20 tablet] Niacin 1,000 mg PO HS 07/07/18 04/07/20 Rosuvastatin C
--- NOTE | 2020-09-09 15:28 | XR_ITS ---
PROCEDURE: XR FINGER RT MIN 2V CLINICAL INDICATION: trauma Posttraumatic pain COMPARISON: No exams were available for comparison FINDINGS: There is a comminuted fracture involving the distal aspect of the distal phalanx of the 4th digit. There is mild dorsal angulation of the distal fracture fragment. There is some soft tissue gas noted at this area in the nail bed region.. IMPRESSION: Nondisplaced fracture comminuted in nature involving the distal aspect of the distal phalanx of the 4th digit with associated soft tissue gas in the nail bed region Dictated by: Ab Martinez MD 09/09/2020 16:12 Ab Martinez MD in [place] 09/09/2020 16:12
--- NOTE | 2020-09-09 15:32 | PC.NURSE ---
Dr. Araujo at bedside for laceration repair.
--- NOTE | 2020-09-09 15:59 | PC.NURSE ---
pt to xray
--- NOTE | 2020-09-09 16:20 | PC.NURSE ---
Dr. Araujo speaking with ortho at this time.
--- NOTE | 2020-09-09 16:51 | PC.NURSE ---
Laceration cleansed with sterile water and soap, bacitracin applied, dressing and finger splint per provider requests.
== END 2020-09-09 16:58 | disposition home or self-care (01) ==
PROVIDERS: Emergency Provider Family Medicine; PCP Internal Medicine
DX: S61.214A Laceration without foreign body of right ring finger without damage to nail, initial encounter (principal); S62.664A Nondisplaced fracture of distal phalanx of right ring finger, initial encounter for closed fracture; W24.0XXA Contact with lifting devices, not elsewhere classified, initial encounter; Y92.015 Private garage of single-family (private) house as the place of occurrence of the external cause; I48.91 Unspecified atrial fibrillation; I25.2 Old myocardial infarction; I10 Essential (primary) hypertension; I25.10 Atherosclerotic heart disease of native coronary artery without angina pectoris; E78.5 Hyperlipidemia, unspecified; E11.9 Type 2 diabetes mellitus without complications; F17.210 Nicotine dependence, cigarettes, uncomplicated; Z87.442 Personal history of urinary calculi; Z88.0 Allergy status to penicillin; Z95.0 Presence of cardiac pacemaker; Z23 Encounter for immunization
CPT/HCPCS: 12002; 73140; 90715; 96372; 99283

== ENCOUNTER 2020-09-24 16:30 | Outpatient (RCR) | payer MEDICARE, BC, SELFPAY ==
--- NOTE | 2020-09-21 09:45 | HMH.PTOPWND ---
Rehab Outpt Wound Evaluation Rehab OP Wound Evaluation Start: 09/21/20 09:36 Freq: Status: Active Protocol: Document 09/21/20 09:36 ABBIERC (Rec: 09/21/20 09:45 PWRC [id number]) Electronically Signed By Glen Billingsley PT 09/21/20 09:36 Subjective/History History History THis is the initial Physical therapy clinic wound center evaluation for Kory Ny. Pt is a n 84 y/o male referred to PT wound care for R 4th finger wound. Pt reports 0n 09/09 he was lowering his garage door and his finger got smashed between door parts. Pt reports fractured distal phalange but no surgical intervention required. Pt reports he had 5 stitches placed that were removed last weeek. Pt now reports to PT for wound care. Subjective Subjective Pt c/o TTP along wound Wound Eval Wound Right Distal Finger - 4th Digit Wound Type Laceration Wound Length (cm) 1.0 Wound Width (cm) 3.5 Number of Sutures 0 Wound Bed Appearance Beefy Red,Yellow Percentage Granulated (%) 50 Percentage of Slough (%) 50 Percentage of Eschar (Yellow) (%) 50 Surrounding Tissue Appearance Dark Red,Purple Surrounding Tissue Temperature Warm Drainage Description None Drainage Amount None Drainage Odor No Odor Dressing Status Dry & Intact Wound Topical Solution/Irrigant Antibiotic Irrigant Primary Dressing Silver Dressing Comment tegederm ag mesh - medihoney Wound Secondary Dressing Type Gauze Roll/Wrap Wound Debridement Method Gauze Wound Debridement Amount of Tissue Minimal Removed Wound Debridement Result Healthy Tissue Revealed Dressing Change Date 09/21/20 Dressing Change Patient Tolerance Tolerated Well Wound Problems/Impairments Impairments Problems/Impairmments Palpation Tenderness,Impaired Range of Motion,Impaired Shower/Bathing,Impaired Household Care,Impaired Recreational Activities, Subjective C/O Pain,Impaired Self Care/Self Management Prognosis Rehab Potential Fair Clinical Impression Consistent
== END 2021-01-06 14:56 | disposition home or self-care (01) ==
LOC: PT 16:30
PROVIDERS: PCP Internal Medicine; Visit Provider Orthopaedic Surgery
DX: S67.10XA Crushing injury of unspecified finger(s), initial encounter (principal); S61.214A Laceration without foreign body of right ring finger without damage to nail, initial encounter; S62.664A Nondisplaced fracture of distal phalanx of right ring finger, initial encounter for closed fracture
CPT/HCPCS: 97161; 97597

== ENCOUNTER → 2020-10-13 08:41 | Outpatient (CLI) | payer MEDICARE, BC, SELFPAY ==
--- NOTE | 2020-10-13 08:45 | XR_ITS ---
PROCEDURE: XR FINGER RT MIN 2V CLINICAL INDICATION: Rt 4th digit fracture COMPARISON: CR XR FINGER RT MIN 2V from 09/09/2020 FINDINGS: The comminuted fracture of the terminal tuft distal phalanx 4th finger is again noted. There has been interval almost complete resolution of the diffuse soft tissue swelling about the distal phalanx. There are no foreign bodies. IMPRESSION: Comminuted fracture terminal tuft distal phalanx, no obvious fusion of the fracture fragments seen as yet Dictated by: Dr. Simon Lebron MD 10/13/2020 09:02 Dr. Simon Lebron MD in [place] 10/13/2020 09:02
== END ==
PROVIDERS: PCP Internal Medicine; Visit Provider Orthopaedic Surgery
DX: S67.10XA Crushing injury of unspecified finger(s), initial encounter (principal)
CPT/HCPCS: 73140

== ENCOUNTER → 2020-11-10 08:58 | Outpatient (CLI) | payer MEDICARE, BC, SELFPAY ==
--- NOTE | 2020-11-10 09:01 | XR_ITS ---
PROCEDURE: XR FINGER RT MIN 2V CLINICAL INDICATION: RT 4th digit crush injury Follow-up fracture COMPARISON: CR XR FINGER RT MIN 2V from 09/09/2020 CR XR FINGER RT MIN 2V from 10/13/2020 FINDINGS: Comminuted fracture once again noted involving the tuft of the distal phalanx of the 4th digit nondisplaced and not significantly changed. 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 Other findings:None. IMPRESSION: No change nondisplaced comminuted fracture tuft of distal phalanx of the 4th digit. Dictated by: Ab Martinez MD 11/10/2020 13:45 Ab Martinez MD in [place] 11/10/2020 13:45
== END ==
PROVIDERS: PCP Internal Medicine; Visit Provider Orthopaedic Surgery
DX: T14.8XXA Other injury of unspecified body region, initial encounter (principal); S67.10XA Crushing injury of unspecified finger(s), initial encounter
CPT/HCPCS: 73140

== ENCOUNTER 2021-05-27 11:47 | Emergency (ER) | payer MEDICARE, BC, SELFPAY ==
[2021-05-27 12:40] VITALS: BP 157/88; PULSE 86; RESP 16; TEMP 36.5; O2SAT 98; BMI 30.1
[2021-05-27 13:11] VITALS: BP 157/88; PULSE 86; RESP 16; TEMP 36.5; O2SAT 98
--- NOTE | 2021-05-27 13:28 | HMH.EDUTC ---
[facility] [place] Impression: Urticaria Disposition: Home, Self-Care Condition on Discharge: Good Instructions: Hives, DI for Hives, Prednisone Additional Instructions: Aveeno oatmeal baths may help with itching and clearing of rash Look around the house and make sure that nothing has changed that you have not changed any soap or lotion that you have been using that could be causing you to break out in rash Follow up with your Family Doctor on Monday if no improvement or any worsening of rash Return if needed Straight to ER if any life threatening symptoms Prescriptions: predniSONE [Prednisone 20mg Tab] 20 mg PO BID 4 Days #8 tab Transmission Status: Received by [facility] Referrals: Raul Capone [Primary Care Provider] - As needed Time of Disposition: 13:44 Medical Decision Making - Matthew Inquiry Pt receiving controlled substance: No Matthew was queried for this patient: No Vital Signs: 05/27/21 12:40 05/27/21 13:11 Temperature 97.7 F 97.7 F Temperature Source Oral Pulse Rate 86 Pulse Rate [Right Brachial] 86 Respiratory Rate 16 16 Blood Pressure 157/88 H Blood Pressure [Right Arm] 157/88 H Blood Pressure Mean [Right Arm] 111 Blood Pressure Source [Right Arm] Automatic Cuff Blood Pressure Position [Right Arm] Sitting 02 Sat by Pulse Oximetry 98 Oxygen Delivery Method Room Air Orders (Tests/Meds): ED MEDICATIONS Discontinued Medications Generic Name Dose Route Start Last Admin Trade Name Freq PRN Reason Stop Dose Admin Famotidine 20 mg 05/27/21 12:59 05/27/21 13:05 Famotidine 20mg Tablet PO 05/27/21 13:00 20 mg ONCE ONE Administration Loratadine 10 mg 05/27/21 13:00 05/27/21 13:05 Loratadine 10mg Tablet PO 05/27/21 13:01 10 mg ONCE ONE Administration Methylprednisolone Sodium Succinate 125 mg 05/27/21 12:59 05/27/21 13:05 Methylprednisolone Sod Succ 125mg Vial IM 05/27/21 13:00 125 mg ONCE ONE Administration Medical Decision Narrative: Patient reports that he has taken solu medrol and prednisone in the past without complications Medications discussed with pharmacy Rash improved after injections will dc [place] [facility] [place] - General Stated complaint: hives Time Seen by Provider: 05/27/21 13:28 Mode of Arrival: Ambulatory Source of Information: Patient Limitations: No Limitations Description of Symptoms (Recalled from Triage Doc. by RN): PATIENT C/O ITCHY RASH X 2 DAYS HEENT Symptoms (Recalled from RN notes): No Resp Symptoms (Recalled from RN notes): No Skin Symptoms (Recalled from RN notes): Yes MS Symptoms (Recalled from RN notes): No Functional Status (Recalled from RN notes): WNL - History of Present Illness Provider Complaint: Patient states that he has been having hives and itching for 2 days and broke out all over his body States that he has taken benadryl but hasnt helped much States that today he came in to get something for it to help with the itching - Related Data Home Medications Medication Instructions Recorded Confirmed Amlodipine Besylate [Amlodipine 10 mg PO DAILY 07/06/18 11/10/20 10mg Tab] Multivit-Min/FA/Lycopen/Lutein 1 each PO DAILY 07/06/18 11/10/20 [Centrum Silver Tablet] [place]-3S/Dha/Epa/Fish Oil [Fish 2 each PO BID 07/06/18 11/10/20 Oil 1,000 mg Softgel] carvediloL [Carvedilol 12.5mg Tab] 12.5 mg PO BID 07/06/18 11/10/20 glipiZIDE [Glipizide ER] 5 mg PO DAILY 07/06/18 11/10/20 polyethylene glycoL 3350 [Miralax 17 gm PO DAILY 07/06/18 11/10/20 Powder] Acetaminophen [Tylenol 500mg 1,000 mg PO Q4HP PRN 07/07/18 11/10/20 tablet] Niacin 1,000 mg PO HS 07/07/18 11/10/20 Rosuvastatin Calcium 10 mg PO HS 07/07/18 11/10/20 Pantoprazole Sodium [Protonix 40mg 40 mg PO HS 07/11/18 11/10/20 tablet] Aspirin [Aspirin 81mg EC Tab] 81 mg PO DAILY 01/18/19 11/10/20 Hydrocodone/Acetaminophen 1 each PO DAILYP PRN 01/18/19 11/10/20 [Hydrocodone-Acetamin 7.5-325] fluticaso
== END 2021-05-27 13:51 | disposition home or self-care (01) ==
PROVIDERS: Emergency Provider Nurse Practitioner; PCP Internal Medicine
DX: L50.0 Allergic urticaria (principal); I48.0 Paroxysmal atrial fibrillation; E11.9 Type 2 diabetes mellitus without complications; E78.5 Hyperlipidemia, unspecified; I10 Essential (primary) hypertension; I25.2 Old myocardial infarction; Z95.0 Presence of cardiac pacemaker; Z79.899 Other long term (current) drug therapy
CPT/HCPCS: G0463; 96372; 99202

== ENCOUNTER 2021-05-29 19:34 | Emergency (ER) | payer MEDICARE, BC, SELFPAY ==
[2021-05-29] VITALS (9 sets, daily range): BP systolic 118–147; BP diastolic 64–118; PULSE 61–80; RESP 13–22; TEMP 36.5–36.6; O2SAT 95–100; BMI 29.2
--- NOTE | 2021-05-29 19:26 | ECG_ITS ---
APPROVED REPORT Exam: Resting ECG HR:78 bpm ECG Measurements Heart Rate 78 AXES QRSd 194 QRS 71 QT 468 T 138 QTc 533 Conclusion Wide QRS rhythm with occasional premature ventricular complexes and fusion complexes Nonspecific intraventricular block Possible Lateral infarct, age undetermined Abnormal ECG Electronically signed by : Markus Ramirez MD 05/30/2021 09:04:16
--- NOTE | 2021-05-29 19:51 | XR_ITS ---
PROCEDURE INFORMATION: Exam: XR Chest Exam date and time: 05/29/2021 7:51 PM Age: 85 years old Clinical indication: Sternal or substernal pain; Prior surgery; Surgery date: 6+ months; Surgery type: Pacemaker; Patient HX: Chest pain, non-smoker. TECHNIQUE: Imaging protocol: XR of the chest. Views: 2 views. COMPARISON: CR XR CHEST 2V 02/21/2020 4:52 PM FINDINGS: Tubes, catheters and devices: There is a left dual lead transvenous pacer identified with distal leads in the right atrium and right ventricle. Lungs: Unremarkable. No consolidation. Pleural spaces: Unremarkable. No pleural effusion. No pneumothorax. Heart/Mediastinum: Unremarkable. No cardiomegaly. Bones/joints: Unremarkable. IMPRESSION: No evidence of acute intrathoracic disease.
[2021-05-29 20:01] LABS: Basophils % 0.1 % (0.1-2.0); Chloride 105 mmol/L (98-107); Eosinophils # 0.1 K/mm3 (0.0-0.4); Eosinophils % 0.3 % (0.1-12.0); Hematocrit 43.7 % (42.0-52.0); Hemoglobin 14.2 g/dL (14.1-18.0); Lymphocytes # 1.1 K/mm3 (0.7-4.5); Lymphocytes % 6.2 % (10-50); Mean Corpuscular HGB Conc 32.5 g/dL (31.8-35.4); Mean Corpuscular Hemoglobin 30.5 pg (27.0-31.2); Mean Corpuscular Volume 93.8 fl (80-94); Mean Platelet Volume 8.1 fl (7.4-10.4); Monocytes # 0.7 K/mm3 (0.1-1.0); Monocytes % 4.2 % (1.7-9.3); Neutrophils # 15.2 K/mm3 (1.8-7.8); Neutrophils % 89.2 % (37.0-80.0); Platelet Count 217 K/mm3 (142-424); Red Blood Count 4.66 M/mm3 (4.60-6.20); Red Cell Distribution Width 15.1 % (11.5-17.5); White Blood Count 17.1 K/mm3 (4.8-10.8)
[2021-05-29 20:02] LABS: Potassium 4.5 mmoL/L (3.5-5.1); Sodium 139 mmol/L (136-145)
[2021-05-29 20:04] LABS: Bilirubin,Unconjugated 0.4 mg/dL (0.0-1.1); Blood Urea Nitrogen 42 mg/dl (9-20); Creatinine Clearance Estimated 37 mL/min (50-200); Estimated Glomerular Filt Rate 32 ml/min (>60); GFR (African American) 39 ML/MIN (>60)
[2021-05-29 20:05] LABS: Alanine Aminotransferase 46 U/L (12-78); Alkaline Phosphatase 95 U/L (38-126); Anion Gap 18.5 mEq/L (5-15); Aspartate Amino Transferase 52 U/L (17-59); Bilirubin,Direct 0.3 mg/dl (0.0-0.4); Bilirubin,Indirect 0.4 mg/dL (0.0-0.9); Bilirubin,Total 0.7 mg/dl (0.2-1.3); Calcium 9.4 mg/dl (8.4-10.2); Carbon Dioxide 20 mmol/L (22.0-30.0); Glucose 308 mg/dl (74-100); Total Protein,Serum 7.7 g/dl (6.3-8.2)
[2021-05-29 20:10] LABS: MANUAL DIFFERENTIAL MANUAL DIFFERENTIAL (MANUAL DIFF)
[2021-05-29 20:14] LABS: NT Pro Brain Natriuretic Pep. 1070 pg/mL (0-450)
[2021-05-29 20:17] LABS: Troponin I 0.07 ng/ml (0.00-0.034)
[2021-05-29 20:37] LABS: Coronavirus 19, PCR Not Detected (NotDetected); Influenza A, PCR Not Detected (NotDetected); Influenza B, PCR Not Detected (NotDetected)
[2021-05-29 20:41] LABS: Lymphocytes % 6 % (10-50); Monocytes % 6 % (2-9); Neutrophils % 88 % (42-76); Platelet Estimate Normal; Total Cells Counted 100
--- NOTE | 2021-05-29 21:44 | HMH.EDCP ---
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 The time I documented below is in addition to time spent performing reported procedures but includes the following listed in this critical care notation. Medical Decision Making - Medical Records Medical records reviewed: Yes: I reviewed the patient's medical records. - Matthew Inquiry Pt receiving controlled substance: No Vital Signs: 05/29/21 19:34 05/29/21 19:46 05/29/21 20:06 Temperature 97.7 F Temperature Source Oral Pulse Rate 70 70 Pulse Rate [Apical] 79 Respiratory Rate 22 15 20 Blood Pressure 120/64 138/72 Blood Pressure [Right Arm] 147/118 H Blood Pressure Mean [Right Arm] 127 Blood Pressure Source [Right Arm] Automatic Cuff Blood Pressure Position [Right Arm] Sitting 02 Sat by Pulse Oximetry 100 96 98 Oxygen Delivery Method Room Air Room Air 05/29/21 20:30 05/29/21 21:01 05/29/21 21:31 Temperature Temperature Source Pulse Rate 68 62 62 Pulse Rate [Apical] Respiratory Rate 14 13 21 Blood Pressure 131/71 139/76 126/71 Blood Pressure [Right Arm] Blood Pressure Mean [Right Arm] Blood Pressure Source [Right Arm] Blood Pressure Position [Right Arm] 02 Sat by Pulse Oximetry 98 96 96 Oxygen Delivery Method Room Air Room Air Room Air - Lab Data Lab results reviewed: Yes: I reviewed the patient's lab results. Lab Results 05/29/21 19:36: WBC 17.1 H, RBC 4.66, Hgb 14.2, Hct 43.7, MCV 93.8, MCH 30.5, MCHC 32.5, RDW 15.1, Plt Count 217, MPV 8.1, Neut % (Auto) 89.2 H, Lymph % (Auto) 6.2 L, [place] % (Auto) 4.2, Eos % (Auto) 0.3, Baso % (Auto) 0.1, Neut # (Auto) 15.2 H, Lymph # (Auto) 1.1, [place] # (Auto) 0.7, Eos # (Auto) 0.1, Baso # (Auto) 0.0, Total Counted 100, Neutrophils % (Manual) 88 H, Lymphocytes % (Manual) 6 L, Monocytes % (Manual) 6, Platelet Estimate Normal 05/29/21 19:36: Sodium 139, Potassium 4.5, Chloride 105, Carbon Dioxide 20 L, Anion Gap 18.5 H, BUN 42 H, Creatinine 2.00 H, Estimated Creat Clear 37, Estimated GFR 32 L, Est GFR ( Amer) 39 L, Glucose 308 H, Calcium 9.4, Total Bilirubin 0.7, Direct Bilirubin 0.3, Conjugated Bilirubin 0.0, Indirect Bilirubin 0.4, Unconjugated Bilirubin 0.4, AST 52, ALT 46, Alkaline Phosphatase 95, Troponin I 0.07 H, NT-Pro-B Natriuret Pep 1070 H, Total Protein 7.7, Albumin 5.0 05/29/21 19:36: SARS-CoV-2 (PCR) Not detected, Influenza A Untype (PCR) Not detected, Influenza Type B (PCR) Not detected 05/29/21 22:31: Troponin I 0.07 H Result diagrams: 05/29/21 19:36 05/29/21 19:36 Orders (Tests/Meds): ED MEDICATIONS Discontinued Medications Generic Name Dose Route Start Last Admin Trade Name Jasiel PRN Reason Stop Dose Admin Aspirin 324 mg 05/29/21 19:42 05/29/21 19:42 Aspirin 81mg Chewable Tablet PO 05/29/21 19:43 243 mg ONCE ONE Administration Nitroglycerin 0.4 mg 05/29/21 19:42 05/29/21 19:42 Nitroglycerin 0.4mg Sl Tablet SL 05/29/21 19:43 0.4 mg ONCE ONE Administration Nitroglycerin 1 gm 05/29/21 19:51 05/29/21 20:09 Nitroglycerin 1 Gm Ointment TD 05/29/21 19:52 1 gm ONCE ONE Administration ORDERS Category Date Time Status Troponin I Q3H Lab 12/05/21 02:00 Ordered - Radiology Data #1 Image(s): Chest Image Reviewed: Yes I have reviewed radiologist's interpretati
[2021-05-29 22:58] LABS: Troponin I 0.07 ng/ml (0.00-0.034)
== END 2021-05-29 23:25 | disposition home or self-care (01) ==
PROVIDERS: Emergency Provider Emergency Medicine; PCP Internal Medicine
DX: R07.2 Precordial pain (principal); R74.8 Abnormal levels of other serum enzymes; I50.20 Unspecified systolic (congestive) heart failure; N18.30 Chronic kidney disease, stage 3 unspecified; E11.9 Type 2 diabetes mellitus without complications; I48.0 Paroxysmal atrial fibrillation; I10 Essential (primary) hypertension; I25.10 Atherosclerotic heart disease of native coronary artery without angina pectoris; Z88.0 Allergy status to penicillin; Z95.0 Presence of cardiac pacemaker; F17.210 Nicotine dependence, cigarettes, uncomplicated; Z79.899 Other long term (current) drug therapy
CPT/HCPCS: 71046; 80048; 80076; 83880; 84484; 85007; 85025; 93005; 99283; C9803; U0003; U0005

== ENCOUNTER → 2022-07-22 14:03 | Outpatient (CLI) | payer MEDICARE, BC, SELFPAY | PROVIDERS: PCP Internal Medicine; Visit Provider Internal Medicine | DX: T81.49XA Infection following a procedure, other surgical site, initial encounter (principal); S01.302A Unspecified open wound of left ear, initial encounter | CPT/HCPCS: 87070; 87077; 87186; 87205 ==

== ENCOUNTER → 2022-10-17 12:42 | Outpatient (CLI) | payer MEDICARE, BC, SELFPAY | PROVIDERS: PCP Internal Medicine; Visit Provider Internal Medicine | DX: S01.302D Unspecified open wound of left ear, subsequent encounter (principal) ==

== ENCOUNTER → 2022-10-18 16:41 | Outpatient (CLI) | payer MEDICARE, BC, SELFPAY | PROVIDERS: PCP Internal Medicine; Visit Provider Internal Medicine | DX: H66.92 Otitis media, unspecified, left ear (principal); B96.29 Other Escherichia coli [E. coli] as the cause of diseases classified elsewhere | CPT/HCPCS: 87070; 87077; 87186 ==

== ENCOUNTER 2023-06-25 13:54 | Emergency (ER) | payer MEDICARE, BC, SELFPAY ==
--- NOTE | 2023-06-25 14:01 | XR_ITS ---
PROCEDURE INFORMATION: Exam: XR Chest Exam date and time: 06/25/2023 2:11 PM Age: 87 years old Clinical indication: Cough; Additional info: Cough, congestion TECHNIQUE: Imaging protocol: Radiologic exam of the chest. Views: 2 views. COMPARISON: CR XR CHEST 2V 05/29/2021 7:53 PM FINDINGS: Tubes, catheters and devices: Pacemaker device Lungs: Mild regions of peribronchial thickening at the lung bases. Pleural spaces: Unremarkable. No pleural effusion. No pneumothorax. Heart/Mediastinum: Unremarkable. No cardiomegaly. Bones/joints: Unremarkable. IMPRESSION: Findings compatible with mild changes of bronchitis.
[2023-06-25 14:10] VITALS: BP 125/66; PULSE 79; RESP 18; TEMP 36.9; O2SAT 97; BMI 27.8
[2023-06-25 14:25] LABS: UTC Influenza A Antigen Negative (Negative); UTC Influenza B Antigen Negative (Negative)
--- NOTE | 2023-06-25 14:29 | ED_ITS ---
Discharge Plan Disposition Patient Disposition: Home, Self-Care Condition: Good Prescriptions Prescriptions: New azithromycin [Zithromax] 250 mg tablet 250 mg PO UD DOSE PK Qty: 6 0RF Rx Instructions: Take two (2) tablets today, then one (1) tablet days #2 thru #5 benzonatate [benzonatate] 100 mg capsule 100 mg PO TIDP PRN (Reason: Cough) Qty: 30 0RF oseltamivir [Tamiflu] 75 mg capsule 75 mg PO BID Qty: 10 0RF No Action carvedilol 12.5 MG tablet 12.5 mg PO BID glipizide 5 MG tablet extended release 24hr 5 mg PO DAILY amlodipine 10 MG tablet 10 mg PO DAILY polyethylene glycol 3350 119 GM powder 17 gm PO DAILY shnogphr-gff-XJ-lycopen-lutein 1 EACH tablet 1 each PO DAILY fjwdc-2v-haw-epa-fish oil 1 EACH capsule 2 each PO BID rosuvastatin 20 MG tablet 10 mg PO HS niacin 500 MG tablet 1,000 mg PO HS hydrocodone-acetaminophen 1 EACH tablet 1 each PO DAILYP PRN (Reason: PAIN) aspirin 81 MG tablet,delayed release (DR/EC) 81 mg PO DAILY zinc 50 MG tablet 25 mg PO HS furosemide 20 MG tablet 20 mg PO DAILY 14 Days Qty: 14 0RF isosorbide mononitrate 30 mg Tablet Extended Release 24 Hr 30 mg PO DAILY niacin 500 mg Tablet 1,000 mg PO DAILY albuterol 90 mcg/actuation Aerosol 90 mcg INHALATION DIRECTED PRN (Reason: Wheezing) pantoprazole 40 MG tablet,delayed release (DR/EC) 40 mg PO HS Referrals Follow up/Referrals: Raul Capone MD [Primary Care Provider] - See instructions Activity Restrictions/Add. Instructions Additional Instructions/Restrictions: Drink plenty of fluids. Take tylenol for pain or fever. Take the medications as directed. Follow up with your regular doctor. GO TO THE ER FOR ANY WORSENING SYMPTOMS Clinical Impressions Clinical Impression: Influenza A Instructions Patient Instructions: DI for Acute Bronchitis, DI for Viral Syndrome Discharge ED Provider: Jl Silverman [facility] [place] HPI General Stated complaint: cough,sore throat,SOA Time Seen by Provider: 06/25/23 14:19 History of Present Illness Provider Complaint: He states that for the past 1 day he has had fever/chills/body aches. He denies shortness of breath but he does have a cough. Related Data Home Medications Medication Instructions Recorded Confirmed amlodipine 10 mg tablet 10 mg PO DAILY Hypertension 07/06/18 06/25/23 carvedilol 12.5 mg tablet 12.5 mg PO BID Hypertension 07/06/18 06/25/23 glipizide 5 mg tablet, extended 5 mg PO DAILY Diabetes 07/06/18 06/25/23 release 24 hr xpziubtm-lhw-kxtik acid 0.4 1 each PO DAILY Supplement 07/06/18 06/25/23 mg-lycopene 300 mcg-lutein 250 mcg tablet omega3 300 mg-dha,epa 250 mg-other 2 each PO BID heart health 07/06/18 06/25/23 omega 3s-fish oil 1,000 mg capsule polyethylene glycol 3350 17 17 gm PO DAILY CONSTIPATION 07/06/18 06/25/23 gram/dose oral powder niacin 500 mg tablet 1,000 mg PO HS Cholesterol 07/07/18 11/10/20 rosuvastatin 20 mg tablet 10 mg PO HS Cholesterol 07/07/18 06/25/23 pantoprazole 40 mg tablet,delayed 40 mg PO HS GERD 07/11/18 06/25/23 release aspirin 81 mg tablet,delayed 81 mg PO DAILY CARDIAC HEALTH 01/18/19 06/25/23 release hydrocodone 7.5 mg-acetaminophen 1 each PO DAILYP PRN PAIN 01/18/19 06/25/23 325 mg tablet zinc 50 mg tablet 25 mg PO HS Supplement 12/22/19 06/25/23 albuterol 90 mcg/actuation aerosol 90 mcg inhalation DIRECTED PRN 06/25/23 06/25/23 inhaler Wheezing isosorbide mononitrate 30 mg 30 mg PO DAILY 06/25/23 06/25/23 tablet,extended release 24 hr niacin 500 mg tablet 1,000 mg PO DAILY 06/25/23 06/25/23 Previous Rx's Medication Instructions Recorded furosemide 20 mg tablet 20 mg PO DAILY 14 days #14 tabs 12/24/19 azithromycin 250 mg tablet 250 mg PO UD DOSE PK #6 tabs 06/25/23 (Zithromax) benzonatate 100 mg capsule 100 mg PO TIDP PRN Cough #30 caps 06/25/23 oseltamivir 75 mg capsule (Tamiflu) 75 mg PO BID #10 caps 06/25/23 Allergies Allergy/AdvReac Type Severity Reaction Status Date / Time penicillin G [PENICILLIN G] Allergy Mild Verified 06/25/23 14:31 [facility] Disclaimer: The information contained in this section may have been updated after the patient was seen, as this information can be updated by other users. Social History Smoking Status: Current every day smoker tobacco type: cigarettes packs per day: 1 second hand exposure: No alcohol intake: never substance use type: denies use current occupational status: retired Travel in the last 8 weeks: None household members: children housing: house current occupational exposures/hazards: No caffeine: No ROS Obtained: Yes All systems reviewed & no additional complaints except as documented Constitutional Constitutional: Reports chills and Reports fever(s) Eyes Eyes: Denies eye discharge ENT Ears, Nose, Mouth, and Throat: Reports as per HPI Cardiovascular Cardiovascular: Denies chest pain Respiratory Respiratory: Denies chest congestion and Reports cough Gastrointestinal Gastrointestingal: Reports nausea; Denies abdominal pain, constipation, cramping, diarrhea or vomiting Musculoskeletal Musculoskeletal: Denies arthralgias Integumentary/Breasts Skin/Breast: Denies rash Neurologic Neurologic: Denies paresthesias Physical Exam General General appearance: alert and in no apparent distress Head Head exam: atraumatic, normocephalic and normal inspection Eye Eye exam: Present normal appearance, PERRL and EOMI ENT ENT exam: Present normal exam, normal oropharynx, mucous membranes moist, TM's normal bilaterally and normal external ear exam Neck Neck exam: Present normal inspection, full ROM and trachea midline; Absent meningismus or lymphadenopathy Chest Chest inspection: Present normal inspection and symmetric chest wall rise; Absent tenderness Respiratory Respiratory exam: Present normal lung sounds bilaterally; Absent respiratory distress Cardiovascular Cardiovascular exam: Present regular rate and normal rhythm; Absent JVD Abdominal Exam Abdominal exam: Present soft and normal bowel sounds; Absent distention, tenderness or guarding Extremities Exam Extremities exam: Present normal inspection, full ROM and normal capillary refill; Absent calf tenderness Back Exam Back exam: Present normal inspection; Absent tenderness Neurological Exam Neurological exam: Present alert and oriented X3 Psychiatric Psychiatric exam: Present normal affect and normal mood Skin Skin exam: Present warm, dry, intact and normal color Lymphatic Lymphatic Findings: no adenopathy Medical Decision Making Medical Records Medical records reviewed: No I reviewed the patient's medical records. Matthew Inquiry Pt receiving controlled substance: No Lab Data Lab results reviewed: Yes I reviewed the patient's lab results. Lab Results 06/25/23 14:24: Influenza Type A Ag Negative, Influenza Type B Ag Negative Orders (Tests/Meds): ORDERS Category Date Time Status Chest XR 2 view (NOT portable) [XR chest 2V] Stat Exams 06/25/23 14:01 Ordered
[2023-06-25 15:14] VITALS: BP 125/66; PULSE 79; RESP 18; TEMP 36.9; O2SAT 97
[2023-06-25 15:16] LABS: Adenovirus,PCR Not Detected (NotDetected); Coronavirus 19, PCR Not Detected (NotDetected); Coronavirus 229E Not Detected (NotDetected); Coronavirus NL63 Not Detected (NotDetected); Coronavirus OC43 Not Detected (NotDetected); Coronovirus HKU1,PCR Not Detected (NotDetected); Human Metapneumovirus Not Detected (NotDetected); Influenza A, PCR Not Detected (NotDetected); Influenza AH1, 2009 Not Detected (NotDetected); Influenza AH1, PCR Not Detected (NotDetected); Influenza B, PCR Not Detected (NotDetected); Parainfluenza 1, PCR Not Detected (NotDetected); Parainfluenza 2, PCR Not Detected (NotDetected); Parainfluenza 3, PCR Not Detected (NotDetected); Parainfluenza 4, PCR Not Detected (NotDetected); Respiratory Syncytial Virus Not Detected (NotDetected); Rhinovirus/Enterovirus Not Detected (NotDetected)
[2023-06-25 16:57] LABS: Influenza AH3,PCR Detected (NotDetected)
== END 2023-06-25 15:00 | disposition home or self-care (01) ==
PROVIDERS: Emergency Provider Nurse Practitioner Family; PCP Internal Medicine
DX: J10.1 Influenza due to other identified influenza virus with other respiratory manifestations (principal); R06.02 Shortness of breath; R05.9 Cough, unspecified; R07.0 Pain in throat; R50.9 Fever, unspecified; M79.18 Myalgia, other site; F17.210 Nicotine dependence, cigarettes, uncomplicated
CPT/HCPCS: 71046; 87632; 87635; 87804; 99212; 99214; G0463

== ENCOUNTER 2023-06-30 11:46 | Emergency (ER) | payer MEDICARE, BC, SELFPAY ==
[2023-06-30 12:20] VITALS: BP 135/77; PULSE 88; RESP 21; TEMP 36.6; O2SAT 100; BMI 29.7
--- NOTE | 2023-06-30 12:21 | ED_ITS ---
Discharge Plan Disposition Patient Disposition: Home, Self-Care Condition: Good Prescriptions Prescriptions: New benzonatate [benzonatate] 100 mg capsule 100 mg PO TIDP PRN (Reason: Cough) Qty: 30 0RF methylprednisolone 4 mg Tablets,Dose Pack 4 mg PO DIRECTED 6 Days Qty: 21 0RF Rx Instructions: Take 1 pack as directed for 6 days cefdinir 300 mg capsule 300 mg PO BID Qty: 20 0RF guaifenesin [Mucinex] 600 mg tablet extended release 12hr 600 - 1,200 mg PO BIDP PRN (Reason: Congestion) Qty: 30 0RF albuterol sulfate [Ventolin HFA] 90 mcg/actuation HFA aerosol inhaler 2 puff inhalation Q6H PRN (Reason: shortness of breath or wheezing) Qty: 6.7 0RF No Action carvedilol 12.5 MG tablet 12.5 mg PO BID glipizide 5 MG tablet extended release 24hr 5 mg PO DAILY amlodipine 10 MG tablet 10 mg PO DAILY polyethylene glycol 3350 119 GM powder 17 gm PO DAILY sgpbttmw-aif-EO-lycopen-lutein 1 EACH tablet 1 each PO DAILY vjgri-0f-ucc-epa-fish oil 1 EACH capsule 2 each PO BID rosuvastatin 20 MG tablet 10 mg PO HS niacin 500 MG tablet 1,000 mg PO HS hydrocodone-acetaminophen 1 EACH tablet 1 each PO DAILYP PRN (Reason: PAIN) aspirin 81 MG tablet,delayed release (DR/EC) 81 mg PO DAILY zinc 50 MG tablet 25 mg PO HS furosemide 20 MG tablet 20 mg PO DAILY 14 Days Qty: 14 0RF isosorbide mononitrate 30 mg Tablet Extended Release 24 Hr 30 mg PO DAILY niacin 500 mg Tablet 1,000 mg PO DAILY albuterol 90 mcg/actuation Aerosol 90 mcg INHALATION DIRECTED PRN (Reason: Wheezing) azithromycin [Zithromax] 250 mg tablet 250 mg PO UD DOSE PK Qty: 6 0RF Rx Instructions: Take two (2) tablets today, then one (1) tablet days #2 thru #5 benzonatate [benzonatate] 100 mg capsule 100 mg PO TIDP PRN (Reason: Cough) Qty: 30 0RF oseltamivir [Tamiflu] 75 mg capsule 75 mg PO BID Qty: 10 0RF pantoprazole 40 MG tablet,delayed release (DR/EC) 40 mg PO HS Referrals Follow up/Referrals: Raul Capone MD [Primary Care Provider] - See instructions Activity Restrictions/Add. Instructions Additional Instructions/Restrictions: Take tylenol for pain or fever. Take the medications as directed. Follow up with your regular doctor. GO TO THE ER FOR ANY WORSENING SYMPTOMS Clinical Impressions Clinical Impression: Bronchitis Instructions Patient Instructions: Acute Bronchitis, DI for Acute Bronchitis Discharge ED Provider: Jl Silverman [facility] [place] HPI General Stated complaint: sore throat and cough Time Seen by Provider: 06/30/23 12:21 History of Present Illness Provider Complaint: He is back after being diagnosed with influenza last week. He states that he is doing better, but he is developing a worsening cough. Related Data Home Medications Medication Instructions Recorded Confirmed amlodipine 10 mg tablet 10 mg PO DAILY Hypertension 07/06/18 06/25/23 carvedilol 12.5 mg tablet 12.5 mg PO BID Hypertension 07/06/18 06/25/23 glipizide 5 mg tablet, extended 5 mg PO DAILY Diabetes 07/06/18 06/25/23 release 24 hr deczxvwh-hhb-winpm acid 0.4 1 each PO DAILY Supplement 07/06/18 06/25/23 mg-lycopene 300 mcg-lutein 250 mcg tablet omega3 300 mg-dha,epa 250 mg-other 2 each PO BID heart health 07/06/18 06/25/23 omega 3s-fish oil 1,000 mg capsule polyethylene glycol 3350 17 17 gm PO DAILY CONSTIPATION 07/06/18 06/25/23 gram/dose oral powder niacin 500 mg tablet 1,000 mg PO HS Cholesterol 07/07/18 11/10/20 rosuvastatin 20 mg tablet 10 mg PO HS Cholesterol 07/07/18 06/25/23 pantoprazole 40 mg tablet,delayed 40 mg PO HS GERD 07/11/18 06/25/23 release aspirin 81 mg tablet,delayed 81 mg PO DAILY CARDIAC HEALTH 01/18/19 06/25/23 release hydrocodone 7.5 mg-acetaminophen 1 each PO DAILYP PRN PAIN 01/18/19 06/25/23 325 mg tablet zinc 50 mg tablet 25 mg PO HS Supplement 12/22/19 06/25/23 albuterol 90 mcg/actuation aerosol 90 mcg inhalation DIRECTED PRN 06/25/23 06/25/23 inhaler Wheezing isosorbide mononitrate 30 mg 30 mg PO DAILY 06/25/23 06/25/23 tablet,extended release 24 hr niacin 500 mg tablet 1,000 mg PO DAILY 06/25/23 06/25/23 Previous Rx's Medication Instructions Recorded furosemide 20 mg tablet 20 mg PO DAILY 14 days #14 tabs 12/24/19 azithromycin 250 mg tablet 250 mg PO UD DOSE PK #6 tabs 06/25/23 (Zithromax) benzonatate 100 mg capsule 100 mg PO TIDP PRN Cough #30 caps 06/25/23 oseltamivir 75 mg capsule (Tamiflu) 75 mg PO BID #10 caps 06/25/23 albuterol sulfate 90 mcg/actuation 2 puff inhalation Q6H PRN 06/30/23 aerosol inhaler (Ventolin HFA) shortness of breath or wheezing #6.7 grams benzonatate 100 mg capsule 100 mg PO TIDP PRN Cough #30 caps 06/30/23 cefdinir 300 mg capsule 300 mg PO BID #20 caps 06/30/23 guaifenesin 600 mg tablet, 600 - 1,200 mg PO BIDP PRN 06/30/23 extended release 12 hr (Mucinex) Congestion #30 tabs methylprednisolone 4 mg tablets in 4 mg PO DIRECTED 6 days #21 tabs 06/30/23 a dose pack Allergies Allergy/AdvReac Type Severity Reaction Status Date / Time penicillin G [PENICILLIN G] Allergy Mild Verified 06/25/23 14:31 [facility] Disclaimer: The information contained in this section may have been updated after the patient was seen, as this information can be updated by other users. Medical History (Updated 06/30/23 @ 12:49 by Jl Silverman APRN) Diabetes mellitus, type 2 H/O placement of stent in anterior descending branch of left coronary artery History of heart attack Hyperlipidemia Hypertension Surgical History (Updated 06/30/23 @ 12:28 by Ivory Ervin RN) History of cardiac cath Social History Smoking Status: Current every day smoker tobacco type: cigarettes packs per day: 1 second hand exposure: No alcohol intake: never substance use type: denies use current occupational status: retired Travel in the last 8 weeks: None household members: children housing: house current occupational exposures/hazards: No caffeine: No ROS Obtained: Yes All systems reviewed & no additional complaints except as documented Constitutional Constitutional: Reports chills and Reports fever(s) Eyes Eyes: Denies eye discharge ENT Ears, Nose, Mouth, and Throat: Reports as per HPI Cardiovascular Cardiovascular: Denies chest pain Respiratory Respiratory: Denies shortness of breath, Reports chest congestion, Reports cough, Denies stridor and Denies wheezing Gastrointestinal Gastrointestingal: Reports nausea; Denies abdominal pain, constipation, cramping, diarrhea or vomiting Musculoskeletal Musculoskeletal: Denies arthralgias Integumentary/Breasts Skin/Breast: Denies rash Neurologic Neurologic: Denies paresthesias Allergic/Immunologic Allergic/Immunologic: Denies wheezing Physical Exam General General appearance: alert and in no apparent distress Head Head exam: atraumatic, normocephalic and normal inspection Eye Eye exam: Present normal appearance, PERRL and EOMI ENT ENT exam: Present normal exam, normal oropharynx, mucous membranes moist, TM's normal bilaterally and normal external ear exam Neck Neck exam: Present normal inspection, full ROM and trachea midline; Absent meningismus or lymphadenopathy Chest Chest inspection: Present normal inspection and symmetric chest wall rise; Absent tenderness Respiratory Respiratory exam: Present normal lung sounds bilaterally; Absent respiratory distress Cardiovascular Cardiovascular exam: Present regular rate and normal rhythm; Absent JVD Abdominal Exam Abdominal exam: Present soft and normal bowel sounds; Absent distention, tenderness or guarding Extremities Exam Extremities exam: Present normal inspection, full ROM and normal capillary refill; Absent calf tenderness Back Exam Back exam: Present normal inspection; Absent tenderness Neurological Exam Neurological exam: Present alert and oriented X3 Psychiatric Psychiatric exam: Present normal affect and normal mood Skin Skin exam: Present warm, dry, intact and normal color Lymphatic Lymphatic Findings: no adenopathy Medical Decision Making Medical Records Medical records reviewed: No I reviewed the patient's medical records. Matthew Inquiry Pt receiving controlled substance: No Radiology Data #1: Image(s): Chest Image Reviewed: Yes I reviewed the patient's radiology image and Yes Calvin lewis reviewed radiologist's interpretation Preliminary Findings: No Infiltrates Seen PROCEDURE INFORMATION: Exam: XR Chest Exam date and time: 05/29/2021 7:51 PM Age: 85 years old Clinical indication: Sternal or substernal pain; Prior surgery; Surgery date: 6+ months; Surgery type: Pacemaker; Patient HX: Chest pain, non-smoker. TECHNIQUE: Imaging protocol: XR of the chest. Views: 2 views. COMPARISON: CR XR CHEST 2V 02/21/2020 4:52 PM FINDINGS: Tubes, catheters and devices: There is a left dual lead transvenous pacer identified with distal leads in the right atrium and right ventricle. Lungs: Unremarkable. No consolidation. Pleural spaces: Unremarkable. No pleural effusion. No pneumothorax. Heart/Mediastinum: Unremarkable. No cardiomegaly. Bones/joints: Unremarkable. IMPRESSION: No evidence of acute intrathoracic disease.
--- NOTE | 2023-06-30 12:23 | XR_ITS ---
FINAL REPORT CLINICAL HISTORY: CONGESTION cough COMPARISON: 06/25/2023 FINDINGS: Two views of the chest were obtained. A left subclavian pacer is present. The heart size and pulmonary vascularity are within normal limits. The mediastinum is normal. No acute pulmonary abnormality is identified. There is mild atelectasis present in the right lung base. There is no pneumothorax. The bony thorax is intact. IMPRESSION: No active cardiopulmonary disease. Mild atelectasis in the right lung base. Reviewed, Interpreted and Dictated by Jeovanny Myrick III, MD Transcribed by Naina Le Authenticated and [facility]
[2023-06-30 12:52] VITALS: BP 135/77; PULSE 88; RESP 21; TEMP 36.6; O2SAT 100
== END 2023-06-30 12:55 | disposition home or self-care (01) ==
PROVIDERS: Emergency Provider Nurse Practitioner Family; PCP Internal Medicine
DX: J20.9 Acute bronchitis, unspecified (principal); R05.9 Cough, unspecified; R07.0 Pain in throat; F17.210 Nicotine dependence, cigarettes, uncomplicated; E11.9 Type 2 diabetes mellitus without complications; E78.5 Hyperlipidemia, unspecified; I10 Essential (primary) hypertension; Z79.84 Long term (current) use of oral hypoglycemic drugs
CPT/HCPCS: 71046; 99212; 99214; G0463

== ENCOUNTER 2023-12-18 09:18 | Outpatient (CLI) | payer MEDICARE, BC, SELFPAY ==
--- OUTSIDE RECORDS SUMMARY | 2023-12-18 09:23 | XMS_ITS | Clinical Summary ---
Author Name Unknown Address [address] [place] [address] Phone Organization [facility] Address [address] [place] [address] Phone Care Team Providers Care Cook Frozen Dessert Name Role Phone Nathan WING, [place]an [place] [ ] Conditions or Problems Problem Name Problem Code Onset Date Status Entry Date Provider Comment Standard Description Annotate Nicotine dependence, cigarettes F17.210 (ICD-10-CM ) 12/13 Active 12/13 Dina Manuel Nicotine dependence, cigarettes, uncomplicated Abscess, groin 18951997 (SNOMED CT) 12/13 Active 12/13 Dina Manuel Abscess of groin Cellulitis, groin 19759210 (SNOMED CT) 12/13 Active 12/13 Dina Manuel Cellulitis of groin Cellulitis/ab scess, scrotal 66308331 (SNOMED CT) 12/13 Active 12/13 Dina Manuel Cellulitis of scrotum Coag neg staph infection B95.7 (ICD-10-CM ) 12/13 Active 12/13 Dina Manuel Other staphylococcus as the cause of diseases classified elsewhere Enterococcus infection 377745270 (SNOMED CT) 12/13 Active 12/13 Dina Manuel Infection caused by Enterococcus E. coli infection, non-shiga toxing-produc ing B96.29 (ICD-10-CM ) 12/13 Active 12/13 Dina Manuel Other Escherichia coli [E. 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 609245558 (SNOMED CT) 12/13 Active 12/13 Dina Jackson Peripheral vascular disease DM II with diabetic PVD 766493623 (SNOMED CT) 12/13 Active 12/13 Dina Jackson Peripheral vascular disease Benign Essential Hypertension 8637471 (SNOMED CT) 12/13 Active 12/13 Dina Jackson Benign essential hypertension Medications Medication Instructions Start Date Stop Date Generic Name NDC Provider NIACIN 500 MG TABS pobid qhn 5 NIACIN 33159730255 Marta Ferris MIRALAX 17 GM PACK 1 dose popid 5 POLYETHYLENE GLYCOL 3350 [id number] Marta JAMES NATURAL FISH OIL 1000 MG CAPS 2 capsules pobid 5 OMEGA-3 FATTY ACIDS 72051748437 Marta Ferris NITROSTAT 0.4 MG SUBL as instructed 9 NITROGLYCERIN 58574639146 Marta Ferris ZANTAC 150 MG ORAL TABLET 1 tab every morning 9 RANITIDINE HCL 72568677569 Marta Ferris CRESTOR 10 MG TABS 1 tab every night 9 ROSUVASTATIN CALCIUM 02763488386 Lizzie Velázquez ZANTAC 150 MG ORAL TABLET 1 tab every morning 9 RANITIDINE HCL 37820822609 Lizzie Velázquez EFFIENT 10 MG TABS 1 tab every morning 9 PRASUGREL HCL 75772010827 Lizzie Velázquez NITROSTAT 0.4 MG SUBL as instructed 9 NITROGLYCERIN 17348431344 Lizzie Velázquez CENTRUM SILVER TABS 1 tab daily 9 MULTIPLE VITAMINS-MINERAL S 67006751153 Lizzie Velázquez NORCO 7.5-325 MG ORAL TABLET 1 tab every 6 hours as needed for moderate pain 9 HYDROCODONE-ACET AMINOPHEN 48048944567 Lizzie Velázquez GLIPIZIDE 5 MG TABS daily 9 GLIPIZIDE 63002059553 Lizzie Velázquez COREG 12.5 MG TABS 1 tab every 12 hours 9 CARVEDILOL 76879573630 Lizzie Velázquez ADULT ASPIRIN EC LOW STRENGTH 81 MG ORAL TABLET DELAYED RELEASE 1 tab daily 9 ASPIRIN 10637370109 Lizzie Velázquez AMLODIPINE BESYLATE 10 MG TABS 1 tab daily 9 AMLODIPINE BESYLATE 36377155071 Lizzie Velázquez Medications Administered No information available. 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 PAT E-MAIL [email or web address] patient's e-mail address External Other: [facility] rivas [facility] ... PATPORTALPIN Linked This dyllan l be used to establish a PIN number for patients to register in the Patient Portal. Plan of Care No information available. Procedures No information available. Vital Signs Date Name Value Unit Description BMI (Body Mass Index) 31.21 kg/m2 Bod y Mass Index (Ratio) Body Temperature 97.5 [degF] temperat ure E&M BP Diastolic 73 mm[Hg] blood pressu re, diastolic BP Systolic 130 mm[Hg] blood pressur e, systolic Heart Rate 69 /min pulse rate Height 71 [in_us] height E&M Respiratory Rate 16 /min respirat ory rate E&M Weight Measured 223.8 [lb_av] weight E& M Immunizations No information available. 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
--- NOTE | 2023-12-18 09:28 | XR_ITS ---
FINAL REPORT TECHNIQUE: Two views CLINICAL HISTORY: COPD COMPARISON: 06/30/2023 FINDINGS: No acute pulmonary density is present. Mediastinal contour is normal. Heart size is stable. A left subclavian pacemaker is present. IMPRESSION: Stable chest exam without acute disease Reviewed, Interpreted and Dictated by Evert López MD Transcribed by Naina Le Authenticated and [facility]
== END 2023-12-18 23:59 | disposition home or self-care (01) ==
LOC: RAD 09:21
PROVIDERS: PCP Internal Medicine Adolescent Medicine; Visit Provider Internal Medicine Adolescent Medicine
DX: J44.9 Chronic obstructive pulmonary disease, unspecified (principal)
CPT/HCPCS: 71046

== ENCOUNTER 2024-04-19 10:52 | Outpatient (CLI) | payer MEDICARE, BC, SELFPAY ==
--- NOTE | 2024-04-19 11:09 | ECG_ITS ---
APPROVED REPORT Exam: Resting ECG HR:82 bpm ECG Measurements Heart Rate 82 AXES ND 170 P 97 QRSd 147 QRS 204 QT 395 T 75 QTc 433 Conclusion ELECTRONIC ATRIAL PACEMAKER ELECTRONIC VENTRICULAR PACEMAKER ABNORMAL RHYTHM ECG UNCONFIRMED REPORT Electronically signed by : Markus Ramirez MD 04/22/2024 08:40:03
[2024-04-19 11:33] LABS: Basophils # 0.1 K/mm3 (0-0.2); Basophils % 0.6 % (0.1-2.0); Eosinophils # 0.4 K/mm3 (0.0-0.4); Eosinophils % 3.3 % (0.1-12.0); Hematocrit 47.3 % (42.0-52.0); Hemoglobin 15.7 g/dL (14.1-18.0); Lymphocytes # 1.6 K/mm3 (0.7-4.5); Mean Corpuscular HGB Conc 33.1 g/dL (31.8-35.4); Mean Corpuscular Hemoglobin 31.6 pg (27.0-31.2); Mean Corpuscular Volume 95.6 fl (80-94); Mean Platelet Volume 7.7 fl (7.4-10.4); Monocytes # 0.8 K/mm3 (0.1-1.0); Neutrophils # 8.5 K/mm3 (1.8-7.8); Neutrophils % 75.1 % (37.0-80.0); Platelet Count 192 K/mm3 (142-424); Red Blood Count 4.95 M/mm3 (4.60-6.20); White Blood Count 11.3 K/mm3 (4.8-10.8)
[2024-04-19 11:55] LABS: Chloride 108 mmol/L (98-107); Potassium 4.3 mmoL/L (3.5-5.1); Sodium 140 mmol/L (136-145)
[2024-04-19 11:58] LABS: Blood Urea Nitrogen 36 mg/dl (9-20); Estimated Glomerular Filt Rate 27 ml/min (>60); GFR (African American) 33 ML/MIN (>60)
[2024-04-19 11:59] LABS: Anion Gap 15.3 mEq/L (5-15); Calcium 9.3 mg/dl (8.4-10.2); Carbon Dioxide 21 mmol/L (22.0-30.0); Glucose 212 mg/dl (74-100)
== END 2024-04-19 23:59 | disposition home or self-care (01) ==
PROVIDERS: PCP Internal Medicine Adolescent Medicine; Visit Provider Surgery
DX: L02.91 Cutaneous abscess, unspecified (principal)
CPT/HCPCS: 36415; 80048; 85025; 93005

== ENCOUNTER 2024-04-25 05:57 | Day surgery (SDC) | payer MEDICARE, BC, SELFPAY ==
--- NOTE | 2024-04-22 15:36 | PC.NURSE ---
Addendum entered by Woo Xie RN 04/22/24 15:41: Mindy Hewitt RN was the RN who interviewed the pt Original Note: during pt's preop interview and trying to collect family history and social history, pt yelled at this rn saying my god how long is this going to go on? I am not answering anymore of your questions. The proceeded to hang up. Preop interview was not complete.
[2024-04-22 15:40] VITALS: BMI 29.2
[2024-04-25] MEDS: LACTATED RINGERS 1000ML 1,000 ML 25 ML IV (06:22)
[2024-04-25 06:26] VITALS: BP 141/79; PULSE 70; RESP 18; TEMP 36.1; O2SAT 96
[2024-04-25 06:50] LABS: POC Glucose,Bedside 179 (70-110)
[2024-04-25] MEDS: CLINDAMYCIN PHOSPHATE/D5W 900 MG/50 ML PIGGYBACK 100 MG IV (07:00)
[2024-04-25] MEDS: LIDOCAINE 1% 20ML MDV 20 ML (07:15)
--- NOTE | 2024-04-25 07:16 | P.OP_ITS ---
Date of procedure: 04/25/24 Pre-op Diagnosis:: Sebaceous cyst?left groin (1.5 cm) Post-op Diagnosis:: Same Procedure performed:: Excision of 1.5 cm left groin sebaceous cyst Surgeon:: Manuel Veliz MD OPERATIONS LABEL CLERK:: Jl Meza Anesthesia: MAC and local Estimated blood loss (mL): 5 Operative findings:: Lesion excised in toto Operative note:: After informed consent was obtained the patient was taken to the operating room and placed in the supine position. Monitored anesthesia care ensued and his left groin region was prepped and draped in a sterile fashion. After infiltration with local anesthetic an elliptical incision was made around the lesion with electrocautery. The deep subcutaneous tissue was dissected with electrocautery. The lesion was excised in toto and passed off for pathologic evaluation. Electrocautery was utilized to achieve hemostasis. Skin was reapproximated with 4-0 Monocryl in an interrupted mattress fashion. Dressings were applied. The patient was then transferred to recovery in stable condition. Condition: stable Disposition: PACU Specimens:: Left groin sebaceous cyst Complications:: No immediate
[2024-04-25 07:25] VITALS: BP 103/61; PULSE 76; RESP 18; TEMP 36.6; O2SAT 94
--- NOTE | 2024-04-25 07:33 | P.PNANES_ITS ---
[facility] Disclaimer: The information contained in this section may have been updated after the patient was seen, as this information can be updated by other users. 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 Diabetes mellitus, type 2 History of heart attack Hyperlipidemia Hypertension Surgical History History of colonoscopy History of cardiac cath Social History Smoking Status: Current every day smoker tobacco type: cigarettes packs per day: 1 second hand exposure: No alcohol intake: never substance use type: denies use current occupational status: retired Travel in the last 8 weeks: None household members: children housing: house current occupational exposures/hazards: No caffeine: No [facility] Anesthesia Checklist Patient Identification Patient Identification: Arm Band and Family Structural Data Admitted From: Home Planned Operative Procedure/s: Excision cyst left groin. Consent for Planned Operative Procedure(s) Verified: Yes NPO Status Verified Time NPO: 00:00 Additional verifications Patient : No Anesthesia Reactions: No Hx Blood Transfusions: No Blood Transfusion Reaction: Yes Cephalosporin Allergy: No Previous Colonoscopy: Yes Airway Assessment Mallampati Score:: Class II C-Spine Mobility Assessed: Yes TMJ Mobility Assessed: Yes Dentition: Edentulous Neurological Assessment Level of Consciousness: Awake, Alert, Appropriate and Follows Commands Hx Seizures: No Numbness or tingling in extremities: No Anesthesia Plan ASA Class: III Anesthesia Type: MAC Preoperative Comments Pre-Operative Comments: Pacemaker. Advanced age. Stage three renal failure. DM.
[2024-04-25 07:35] VITALS: BP 114/61; PULSE 74; RESP 18; O2SAT 96
[2024-04-25 07:45] VITALS: BP 124/80; PULSE 80; RESP 18; O2SAT 97
[2024-04-25 08:04] VITALS: BP 122/64; PULSE 72; RESP 18; O2SAT 98
== END 2024-04-25 08:04 | disposition home or self-care (01) ==
PROVIDERS: PCP Internal Medicine Adolescent Medicine; Visit Provider Surgery
PROC: (CPT 11402; principal; 2024-04-25 07:00)
DX: L72.3 Sebaceous cyst (principal); L02.214 Cutaneous abscess of groin; R52 Pain, unspecified; E11.8 Type 2 diabetes mellitus with unspecified complications; Z79.84 Long term (current) use of oral hypoglycemic drugs
CPT/HCPCS: 11402; 82962; 88304; 96374; J0736; J7120

== ENCOUNTER 2024-05-04 10:54 | Outpatient (CLI) | payer MEDICARE, BC, SELFPAY | END 2024-05-04 23:59 | disposition home or self-care (01) | LOC: LAB 10:56 | PROVIDERS: PCP Internal Medicine Adolescent Medicine; Visit Provider Nurse Practitioner Family | DX: R05.3 Chronic cough (principal) | CPT/HCPCS: 87070; 87077; 87205 ==

== ENCOUNTER 2024-07-01 07:28 | Outpatient (CLI) | payer MEDICARE, BC, SELFPAY ==
--- NOTE | 2024-07-01 07:35 | CT_ITS ---
FINAL REPORT TECHNIQUE: Axial images were obtained through the chest without contrast. Coronal and sagittal reconstructions obtained and reviewed. This study was performed with techniques to keep radiation doses as low as reasonably achievable, (ALARA). Individualized dose reduction techniques using automated exposure control or adjustment of mA and/or kV according to the patient's size were employed. 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 The heart size is normal. There is no pericardial or pleural effusion. There is a noncalcified nodule in the medial right lower lobe measuring 7 mm in diameter, well-seen on image 34 of series 2. Limited images of the upper abdomen demonstrate multiple gallstones within the dependent portion of the distended gallbladder. IMPRESSION: 7 mm nodule right lower lobe of the lung. 6-month follow-up per Fleischner criteria. Gallstones. Reviewed, Interpreted and Dictated by Derrick Evans MD Transcribed by Trisha Hernandes Authenticated and [facility]
[2024-07-01 08:19] LABS: Blood Urea Nitrogen 35 mg/dl (9-20); Estimated Glomerular Filt Rate 22 ml/min (>60); GFR (African American) 26 ML/MIN (>60)
[2024-07-01 08:30] VITALS: PULSE 92; PULSE 94
[2024-07-01] MEDS: ALBUTEROL 0.083% 2.5 MG/3 ML NEB IH (08:35)
== END 2024-07-01 23:59 | disposition home or self-care (01) ==
PROVIDERS: PCP Internal Medicine Adolescent Medicine; Visit Provider Internal Medicine Adolescent Medicine
DX: R05.3 Chronic cough (principal)
CPT/HCPCS: 36415; 71250; 82565; 84520; 94060; 94640; 94727; 94729; J7613

== ENCOUNTER 2024-09-10 09:32 | Outpatient (CLI) | payer MEDICARE, BC, SELFPAY ==
[2024-09-10 09:44] LABS: Microscopic, Urine URINE MICROSCOPIC (MICROSCOPIC)
[2024-09-10 10:01] LABS: Basophils # 0.1 K/mm3 (0-0.2); Basophils % 1.1 % (0.1-2.0); Eosinophils # 0.4 K/mm3 (0.0-0.4); Eosinophils % 4.1 % (0.1-12.0); Hematocrit 44.1 % (42.0-52.0); Hemoglobin 14.6 g/dL (14.1-18.0); Lymphocytes # 1.6 K/mm3 (0.7-4.5); Lymphocytes % 16.8 % (10-50); Mean Corpuscular HGB Conc 33.1 g/dL (31.8-35.4); Mean Corpuscular Hemoglobin 30.7 pg (27.0-31.2); Mean Corpuscular Volume 92.6 fl (80-94); Mean Platelet Volume 9.5 fl (7.4-10.4); Monocytes # 0.9 K/mm3 (0.1-1.0); Monocytes % 8.7 % (1.7-9.3); Neutrophils # 6.7 K/mm3 (1.8-7.8); Neutrophils % 68.7 % (37.0-80.0); Platelet Count 166 K/mm3 (142-424); Red Blood Count 4.76 M/mm3 (4.60-6.20); Red Cell Distribution Width 16.1 % (11.5-17.5); White Blood Count 9.7 K/mm3 (4.8-10.8)
[2024-09-10 10:22] LABS: Albumin Level 5.2 g/dl (3.5-5.0); Anion Gap 11.5 mEq/L (5-15); Blood Urea Nitrogen 23 mg/dl (9-20); Calcium 9.7 mg/dl (8.4-10.2); Carbon Dioxide 26 mmol/L (22.0-30.0); Chloride 107 mmol/L (98-107); Estimated Glomerular Filt Rate 28 ml/min (>60); GFR (African American) 34 ML/MIN (>60); Glucose 115 mg/dl (74-100); Phosphorous 4.2 mg/dl (2.5-4.5); Potassium 4.5 mmoL/L (3.5-5.1); Sodium 140 mmol/L (136-145)
[2024-09-10 10:36] LABS: Creatinine,Urine Random 77 mg/dL (Not Estab.)
[2024-09-10 11:08] LABS: Appearance,Urine Clear (Clear); Color,Urine Yellow (Yellow); Protein,Urine 1+ (Negative)
[2024-09-10 11:09] LABS: Bilirubin,Urine Negative (Negative); Blood, Urine Trace (Negative); Glucose,Urine (UA) 2+ (Negative); Ketones,Urine Negative (Negative); Leukocyte Esterase,Urine Negative (Negative); Nitrate,Urine Negative (Negative); RBC,Urine Occasional #/hpf (0-3); Squamous Epithelial Cell,Urine Occasional #/hpf (0-5); Urobilinogen,Urine 0.2 EU/dl (0.2); WBC,Urine Occasional #/hpf (0-3)
[2024-09-10 11:10] LABS: Bacteria,Urine Trace /lpf
== END 2024-09-10 23:59 | disposition home or self-care (01) ==
LOC: LAB 09:34
PROVIDERS: PCP Internal Medicine Adolescent Medicine; Visit Provider Hospitalist
DX: N28.9 Disorder of kidney and ureter, unspecified (principal)
CPT/HCPCS: 36415; 80069; 81001; 82570; 84156; 85025

== ENCOUNTER 2024-12-03 06:44 | Outpatient (CLI) | payer MEDICARE, BC, SELFPAY ==
--- OUTSIDE RECORDS SUMMARY | 2024-04-12 03:50 | XMS_ITS ---
Author Name [facility] [place] [facility] [place] Address [address] [place] [id number] Care Team Providers [facility] Medical Assistant Name Role Phone FAHAD BLOCK Primary Care Provider Unavailabl e Insurance Providers: All historical and current Section Date Range: From patient's date of to the date document was created. This section includes the names of all active insurance providers for the patient. Insurance Provider Type of Coverage Plan Name Start of Policy Coverage End of Policy Coverage Group Number Member ID Insurance Provider's Telephone Number Policy Berg's Name Patient's Relationship to Policy Berg [facility] MED[place]AP PLAN C [place] C May 26, 2016 [id number] [phone] Samara RAMIREZ OBBY PATIENT [facility] BLUECARD MEDICARE SUPPLEMEN SELVIN [place] CKY INDIV IDUAL Jun 26, 2008 [id number] [phone] Samara RAMIREZ OBBY PATIENT MEDICARE (WNR) MEDICARE (M) PART A Nov 24, 2001 PART A [id number] [facility] Samara RAMIREZ OBBY PATIENT MEDICARE (WNR) MEDICARE (M) PART B Nov 24, 2001 PART B [id number] [facility] Samara RAMIREZ OBBY PATIENT MEDICARE (WNR) MEDICARE (M) PART B Nov 24, 2001 PART B [id number] [facility] [phone] RAMIREZ,B OBBY PATIENT MEDICARE (WNR) MEDICARE (M) PART A Nov 24, 2001 PART A [id number] [facility] RAMIREZ,B OBBY PATIENT MEDICARE (WNR) MEDICARE (M) PART A Nov 24, 2001 PART A [id number] RAMIREZ,B OBBY PATIENT MEDICARE (WNR) MEDICARE (M) PART B Nov 24, 2001 PART B [id number] RAIMREZ,B OBBY PATIENT MEDICARE (WNR) MEDICARE (M) PART A Nov 24, 2001 PART A [id number] RAMIREZ,B OBBY PATIENT MEDICARE (WNR) MEDICARE (M) PART B Nov 24, 2001 PART B [id number] RAMIREZ,B OBBY PATIENT Selected Encounter This section includes the information on record at [place] for the Encounter. Date/Time Encounter Type Encounter Description Reason Pro vider Source Apr 12, 2024 07:50 AM Outpatient Encounter ADMIN PAT ACTIVTIES (MASNONCT) IHE Encounter Template Text not used by [place] Plan of Treatment: Future Appointments (+ 6 months) and Future Tests (+/- 45 days) The Plan of Treatment section includes future care activities for the patient from all [place] treatmentfacilities. This section includes future appointments and future orders which are active, pending or scheduled. Future Appointments This section includes appointments that were scheduled to occur 6 months from the date of the Encounter, up to a maximum of 20 appointments. The data comes from all [place] treatment facilities. Appointment Date/Time Appointment Type Appointme nt Facility Name May 10, 2024 08:00 AM AMB[facility]ATORY - NONE [place] [facility] May 17, 2024 11:30 AM AMBULATORY - NONE [place] [facility] Jul 23, 2024 01:30 PM [facility] Lab Results: +/- 30 days of the encounter This section includes the Chemistry and Hematology Lab Results on record with [place] for the patient. Radiology Reports and Pathology Reports are provided separately, in subsequent sections. Lab Results This section contains the Chemistry/Hematology Results that were resulted 30 days before or 30 daysafter the date of the Encounter. Date/Time Source Result Type Result - Unit Interpretation Reference Range Specimen Type Comment May 10, 2024 08:59 AM [facility] N MICROALBUMIN/CREAT RATIO URINE Specimen Type: URINE No comment entered. Ordering Provider: FAHAD BLOCK Report Released Date/Time: May 10, 2024 08:34 AM Reporting Lab: [address] [address] Performing Lab: [place] [id number] CREATININE 77.4 mg/dL MICROALBUMIN QUANT 370.8 mg/L H 0.0-30.0 .MICROALBUMIN/CREA RATIO 479.1 ug/mg{creat} May 10, 2024 08:59 AM [facility] URINALYSIS URINE Specimen Type: URINE No comment entered. Ordering Provider: FAHAD BLOCK Report Released Date/Time: May 10, 2024 08:34 AM Reporting Lab: [address] [address] Performing Lab: [place] [id number] URINE COLOR Light Yellow Colorless-Yello w APPEARANCE Clear Clear UROBILINOGEN Normal mg/dL Normal URINE BLOOD Negative Negative URINE BILIRUBIN Negative Negative URINE KETONES Negative mg/dL Negative URINE PROTEIN 30 mg/dL H Negative-Trace URINE PH 6.0 4.5-8.0 URINE NITRITE Negative Negative URINE LEUKOCYTE EST Negative Negative SPECIFIC GRAVITY 1.022 1.005-1.030 URINE GLUCOSE >1000 mg/dL H Negative URINE WBC (i) 1 /[HPF] 0-3 HYALINE CASTS (i) 1 /[LPF] 0-2 May 10, 2024 08:59 AM [facility] DRUG SCREEN EXPANDED IN-HOUSE URINE Specimen Type: URINE Comment: Screening method results are unconfirmed and are for medical use only. Unconfirmed screening results must not be used for non-medical purposes. Opiates test most sensitive for morphine, codeine and heroin and less sensitive for hydrocodone and hydromorphone where higher concentrations are needed for cut-off detection. Drugs of abuse screening is a preliminary analytical test result. A more specific alternate chemical method (GC/MS) must be used to obtain a confirmed analytical result. This assay provides a preliminary unconfirmed analytical test result that may be suitable for clinical management of patients in certain situations. Drug-test results should be interpreted in the context of clinical information. Patient metabolic characteristics can affect test outcome. Ordering Provider: FAHAD BLOCK Report Released Date/Time: May 10, 2024 08:34 AM Reporting Lab: [address] [address] Performing Lab: [address] [address] TETRAHYDROCANNABINOL SCREEN NEG Cuto ff < 50 AMPHETAMINE SCR NEG Cutoff < 1000 BARBITURATES SCR NEG Cutoff < 200 BENZODIAZEPINES SCR NEG Cutoff < 200 COCAINE METABOLITE SCR NEG Cutoff < 300 OPIATES SCR POS Cutoff < 300 METHADONE SCR NEG Cutoff < 300 OXYCODONE SCR NEG Cutoff < 200 BUPRENORPHINE SCR IN-HOUSE NEG Cutof f < 5 FENTANYL SCREEN IN-HOUSE NEG Cutoff < 1 May 10, 2024 08:49 AM [facility] CYSTATIN C WITH eGFR ([facility]) PLASMA Specimen Type: PLASMA No comment entered. Ordering Provider: FAHAD BLOCK Report Released Date/Time: May 10, 2024 08:34 AM Reporting Lab: [address] [address] Performing Lab: [address] [address] .CYSTATIN C ([facility]) 2.77 mg/L H 0.87-1.1 2 .eGFR ([facility]) 18 L >59 May 10, 2024 08:49 AM [facility] B12 VITAMIN PLASMA Specimen Type: PLASM A Comment: Estimated Glomerular Filtration Rate (eGFR) calculated using the 2020 Chronic Kidney Disease-Epidemiology (CKD-EPI) Collaboration creatinine equation; units of measure are mL/min/1.73 m2. Results are only valid for adults (>=18 years) whose serum creatinine is in a steady state. eGFR calculations are not valid for patients with acute kidney injury and for patients on dialysis. Creatinine-based estimates of kidney function may also be inaccurate in patients with reduced creatinine generation due to decreased muscle mass (e.g., malnutrition, severe hypoalbuminemia, sarcopenia, chronic neuromuscular disease, amputations, severe heart failure or liver disease) and in patients with increased creatinine generation due to increased muscle mass (e.g., muscle builders, anabolic steroids) or increased dietary intake. As drug clearance is proportional to total GFR and not GFR indexed to body surface area (BSA), in individuals with a BSA substantially different than 1.73 m2, drug dosing should be based on the reported eGFR value de-indexed from BSA by multiplying by the individual's BSA and dividing by 1.73. CKD is diagnosed based on abnormalities of kidney structure or function, present for >3 months, with implications for health and disease. CKD is classified and staged based on cause, eGFR and albuminuria (quantified as urine albumin to creatinine ratio). An eGFR >60 mL/min/1.73 m2 in the absence of increased urine albumin excretion or structural abnormalities does not represent CKD. eGFR CKD Interpretation (mL/min/1.73 m2) stage >=90 G1 Normal 60-89 G2 Mild decrease 45-59 G3A Mild to moderate decrease 30-44 G3B Moderate to severe decrease 15-29 G4 Severe decrease <15 G5 Kidney failure Vitamin B12 test may not yield results when protein level of sample is too elevated. Ordering Provider: FAHAD BLOCK Report Released Date/Time: May 10, 2024 08:34 AM Reporting Lab: [address] [phone] Performing Lab: [address] [address] B12 VITAMIN >2000 pg/mL H 213-816 May 10, 2024 08:49 AM [facility] 25-OH VITAMIN D SERUM Specime n Type: SERUM Comment: The National Institutes of Health (NIH) recommendations state: <12 ng/mL - Deficient 20 - 50 ng/mL - Optimal Levels - adequate for most people. >50 ng/mL - Increased risk of hypercalciuria/other health problems - clinical correlation is required. These reference ranges represent clinical decision values rather than population-based reference values. Ordering Provider: FAHAD BLOCK Report Released Date/Time: May 10, 2024 08:34 AM Reporting Lab: [address] [address] Performing Lab: [place] [phone] 25-OH VITAMIN D 50.1 ng/mL H 20.0-50.0 May 10, 2024 08:49 AM [facility] TSH PLASMA Specimen Type: PLASM A Comment: Estimated Glomerular Filtration Rate (eGFR) calculated using the 2020 Chronic Kidney Disease-Epidemiology (CKD-EPI) Collaboration creatinine equation; units of measure are mL/min/1.73 m2. Results are only valid for adults (>=18 years) whose serum creatinine is in a steady state. eGFR calculations are not valid for patients with acute kidney injury and for patients on dialysis. Creatinine-based estimates of kidney function may also be inaccurate in patients with reduced creatinine generation due to decreased muscle mass (e.g., malnutrition, severe hypoalbuminemia, sarcopenia, chronic neuromuscular disease, amputations, severe heart failure or liver disease) and in patients with increased creatinine generation due to increased muscle mass (e.g., muscle builders, anabolic steroids) or increased dietary intake. As drug clearance is proportional to total GFR and not GFR indexed to body surface area (BSA), in individuals with a BSA substantially different than 1.73 m2, drug dosing should be based on the reported eGFR value de-indexed from BSA by multiplying by the individual's BSA and dividing by 1.73. CKD is diagnosed based on abnormalities of kidney structure or function, present for >3 months, with implications for health and disease. CKD is classified and staged based on cause, eGFR and albuminuria (quantified as urine albumin to creatinine ratio). An eGFR >60 mL/min/1.73 m2 in the absence of increased urine albumin excretion or structural abnormalities does not represent CKD. eGFR CKD Interpretation (mL/min/1.73 m2) stage >=90 G1 Normal 60-89 G2 Mild decrease 45-59 G3A Mild to moderate decrease 30-44 G3B Moderate to severe decrease 15-29 G4 Severe decrease <15 G5 Kidney failure Ordering Provider: FAHAD BLOCK Report Released Date/Time: May 10, 2024 08:34 AM Reporting Lab: [place] [address] [address] Performing Lab: [address] [address] TSH 1.7870 m[IU]/mL 0.3500-4.9400 May 10, 2024 08:49 AM [facility] GLYCOHEMOGLOBIN BLOOD Specimen Type: BLOOD Comment: [facility] guidelines for A1c interpretation: Glycemic control targets are based on Shared Decision Making between clinicians and patients. Criteria used to establish an A1c target recommendation can be found at https://www.ak.gov/qualityandpatientsafety/ and include the use of result accuracy and precision(CV) of the A1c tests clinicians utilize at their own sites of practice. Values obtained from A1C measurements can vary. For typical A1C assays, a reported value of 7.0 could actually be between 6.72 and 7.28 if measured by a reference method. A reported value of 9.0 could actually be between 8.73 and 9.27. Ref: https://ngsp.org/CAPdata.asp. The in-house [employer] D-100 analyzer has a historical CV <= 2%. Contact the laboratory for further performance characteristics of this assay. Ordering Provider: FAHAD BLOCK Report Released Date/Time: May 10, 2024 08:34 AM Reporting Lab: [address] [address] Performing Lab: [address] [address] GLYCOHEMOGLOBIN 7.5 H 4.4-6.4 May 10, 2024 08:49 AM [facility] LIPID PROFILE PLASMA Specimen Type: PLASM A Comment: Estimated Glomerular Filtration Rate (eGFR) calculated using the 2020 Chronic Kidney Disease-Epidemiology (CKD-EPI) Collaboration creatinine equation; units of measure are mL/min/1.73 m2. Results are only valid for adults (>=18 years) whose serum creatinine is in a steady state. eGFR calculations are not valid for patients with acute kidney injury and for patients on dialysis. Creatinine-based estimates of kidney function may also be inaccurate in patients with reduced creatinine generation due to decreased muscle mass (e.g., malnutrition, severe hypoalbuminemia, sarcopenia, chronic neuromuscular disease, amputations, severe heart failure or liver disease) and in patients with increased creatinine generation due to increased muscle mass (e.g., muscle builders, anabolic steroids) or increased dietary intake. As drug clearance is proportional to total GFR and not GFR indexed to body surface area (BSA), in individuals with a BSA substantially different than 1.73 m2, drug dosing should be based on the reported eGFR value de-indexed from BSA by multiplying by the individual's BSA and dividing by 1.73. CKD is diagnosed based on abnormalities of kidney structure or function, present for >3 months, with implications for health and disease. CKD is classified and staged based on cause, eGFR and albuminuria (quantified as urine albumin to creatinine ratio). An eGFR >60 mL/min/1.73 m2 in the absence of increased urine albumin excretion or structural abnormalities does not represent CKD. eGFR CKD Interpretation (mL/min/1.73 m2) stage >=90 G1 Normal 60-89 G2 Mild decrease 45-59 G3A Mild to moderate decrease 30-44 G3B Moderate to severe decrease 15-29 G4 Severe decrease <15 G5 Kidney failure Vitamin B12 test may not yield results when protein level of sample is too elevated. Ordering Provider: FAHAD BLOCK Report Released Date/Time: May 10, 2024 08:34 AM Reporting Lab: [address] [address] Performing Lab: [address] [address] CHOLESTEROL 227 mg/dL H 0-199 TRIGLYCERIDE 402 mg/dL H 0-149 HDL CHOLESTEROL 37 mg/dL L 40-69 DIRECT LDL CHOL. 63 mg/dL 0-100 May 10, 2024 08:49 AM [facility] CBC/PLT BLOOD Specimen Type: BLOOD No comment entered. Ordering Provider: FAHAD BLOCK Report Released Date/Time: May 10, 2024 08:34 AM Reporting Lab: [address] [address] Performing Lab: [address] [address] WBC 6.3 10*3/uL 5.0-10.0 RBC 5.01 10*6/uL 4.6-6.2 HGB 15.5 g/dL 14.0-18.0 HCT 46.6 42.0-52.0 MCV 93.0 fL 80.0-94.0 MCH 30.9 pg 27.0-31.0 MCHC 33.3 g/dL 32.0-36.0 PLT 204 10*3/uL 150-450 MPV 9.8 fL 9.0-13.1 RDW 15.9 11.0-16.0 NRBC 0.0 0.0-0.0 May 10, 2024 08:49 AM [facility] PANEL 5 PLASMA Specimen Type: PLASM A Comment: Estimated Glomerular Filtration Rate (eGFR) calculated using the 2020 Chronic Kidney Disease-Epidemiology (CKD-EPI) Collaboration creatinine equation; units of measure are mL/min/1.73 m2. Results are only valid for adults (>=18 years) whose serum creatinine is in a steady state. eGFR calculations are not valid for patients with acute kidney injury and for patients on dialysis. Creatinine-based estimates of kidney function may also be inaccurate in patients with reduced creatinine generation due to decreased muscle mass (e.g., malnutrition, severe hypoalbuminemia, sarcopenia, chronic neuromuscular disease, amputations, severe heart failure or liver disease) and in patients with increased creatinine generation due to increased muscle mass (e.g., muscle builders, anabolic steroids) or increased dietary intake. As drug clearance is proportional to total GFR and not GFR indexed to body surface area (BSA), in individuals with a BSA substantially different than 1.73 m2, drug dosing should be based on the reported eGFR value de-indexed from BSA by multiplying by the individual's BSA and dividing by 1.73. CKD is diagnosed based on abnormalities of kidney structure or function, present for >3 months, with implications for health and disease. CKD is classified and staged based on cause, eGFR and albuminuria (quantified as urine albumin to creatinine ratio). An eGFR >60 mL/min/1.73 m2 in the absence of increased urine albumin excretion or structural abnormalities does not represent CKD. eGFR CKD Interpretation (mL/min/1.73 m2) stage >=90 G1 Normal 60-89 G2 Mild decrease 45-59 G3A Mild to moderate decrease 30-44 G3B Moderate to severe decrease 15-29 G4 Severe decrease <15 G5 Kidney failure Vitamin B12 test may not yield results when protein level of sample is too elevated. Ordering Provider: FAHAD BLOCK Report Released Date/Time: May 10, 2024 08:34 AM Reporting Lab: [address] [address] Performing Lab: [address] [address] CREATININE 2.77 mg/dL H 0.72-1.25 UREA NITROGEN 32 mg/dL H 9-25 GLUCOSE 138 mg/dL H 74-100 SODIUM 141 mmol/L 136-145 POTASSIUM 4.8 mmol/L 3.5-5.1 CHLORIDE 108 mmol/L H 98-107 CO2 21 mmol/L L 22-29 CALCIUM 10.5 mg/dL H 8.4-10.2 TOTAL PROTEIN 8.0 g/dL 6.4-8.3 ALBUMIN 4.9 g/dL 3.5-5.2 TOTAL BILIRUBIN 0.7 mg/dL 0.2-1.2 AST 29 U/L 5-34 ALT 21 U/L 0-55 ANION GAP 12 meq/L 3-19 ALK PHOS 100 U/L 40-150 eGFR (CKD-EPI) 21 Social History: Smoking Status (Most current) and Tobacco Use (All prior to encounter date) This section includes the most current, and the historical, smoking and tobacco- related health factors from the [place] facility where the Encounter took place. Current Smoking Status This section includes the most current smoking, or tobacco-related health factor, from the [place] facility where the Encounter took place. Date/Time Current Smoking Status Comment Jose Luis ity Aug 07, 2020 03:30 PM [place]-TOBACCO USER EVERY DAY [facility] Tobacco Use History This section includes a history of the smoking, or tobacco-related health factors, that were collected on or before the date of the Encounter. The data comes from the [place] facility where the Encounter took place. Date/Time Smoking Status/Tobacco Use Comment F acility Aug 07, 2020 03:30 PM [place]-TOBACCO USE ADVICE [facility] Aug 07, 2020 03:30 PM VA-TOBACCO USE RN OUTPATIENT SURGERY NO [facility] Aug 07, 2020 03:30 PM VA-TOBACCO USE MED NO [facility] Aug 07, 2020 03:30 PM VA-TOBACCO USE WI 30 MIN OF WAKEUP [facility] Aug 07, 2020 03:30 PM VA-TOBACCO USER EVERY DAY [facility] Sep 07, 2015 02:27 PM V9 CURRENT TOBACCO USER [facility] Sep 07, 2015 02:27 PM V9 TOBACCO OFFERED [facility] Sep 07, 2015 02:27 PM V9 TOBACCO USE-DEC LINED MEDS [facility] Dec 02, 2008 06:27 PM TOBACCO OFFERRED P T MEDS (PROVIDER) [facility] Dec 02, 2008 06:27 PM V9 CURRENT TOBACCO USER [facility] Dec 02, 2008 06:27 PM V9 TOBACCO OFFERED [facility] Sep 05, 2007 07:04 PM TOBACCO OFFERRED P T MEDS (PROVIDER) [facility] Sep 05, 2007 07:04 PM V9 CURRENT TOBACCO USER [facility] Sep 05, 2007 07:04 PM V9 TOBACCO OFFERED [facility] Aug 10, 2006 06:03 PM TOBACCO OFFERRED P T MEDS (PROVIDER) [facility] Aug 10, 2006 06:03 PM V9 CURRENT TOBACCO USER [facility] Aug 10, 2006 06:03 PM V9 TOBACCO OFFERED [facility] Feb 22, 2006 09:55 PM HF V9 SECOND TOBAC CO RN OUTPATIENT SURGERY occ. [facility] Aug 16, 2005 08:17 AM HF V9 CURRENT SMOKER SMOKES UP TO 2 PACKS/WK [facility] Aug 09, 2004 12:56 PM HF V9 CURRENT NON-SMOKER about a week ago [facility] Jul 02, 2003 07:59 AM HF V9 CURRENT NON-SMOKER 7yrs ago [facility] Apr 26, 2002 11:54 AM HF V9 CURRENT NON-SMOKER quit about 5 yrs ago. [facility] Advance Directives: All historical and current Section Date Range: From patient's date of to the date document was created. This section includes ALL of a patient's completed or amended [place] Advance and Rescinded Directives. The entries below indicate that a directive exists for the patient, but an actual copy is not included with this document. The data comes from all [place] facilities. Date Advance Directives Provider Source Oct 17, 2011 ADVANCE DIRECTIVE DISCUSSION AMY VÁSQUEZ [facility] Aug 11, 2010 ADVANCE DIRECTIVE DISCUSSION AMY VÁSQUEZ [facility] Jun 04, 2009 ADVANCE DIRECTIVE DISCUSSION [facility] Encounter Notes: All associated encounter notes This section contains the clinical notes associated to the Encounter. 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 /echo/ TAMAR AGUIRRE Signed: 04/12/2024 07:51 [facility]
--- OUTSIDE RECORDS SUMMARY | 2024-04-15 10:14 | XMS_ITS | Encounter Summary ---
Author Name [facility] [place] [facility] [place] [facility] [place] Address [address] [place] [id number] Care Team Providers Care Accounts Payable Manager Name Role Phone FAHAD BLOCK Primary Care [...] Berg's Name Patient's Relationship to Policy Berg [facility] [place] [facility] MED-[place] UPP PLAN C May 26, 2016 [id number] [phone] Samara RAMIREZ OBBY PATIENT [facility] BLUECARD MEDICARE SUPPLEMEN SELVIN [place] CKY INDIV IDUAL Jun 26, 2008 [id number] [phone] Samara RAMIREZ OBBY PATIENT MEDICARE (WNR) MEDICARE (M) PART A Nov 24, 2001 PART A [id number] [facility] Samara RAMIREZ OBBY PATIENT MEDICARE (WNR) MEDICARE (M) PART B Nov 24, 2001 PART B [id number] Samara RAMIREZ OBBY PATIENT MEDICARE (WNR) MEDICARE (M) PART A Nov 24, 2001 PART A [id number] [facility] RAMIREZ,B OBBY PATIENT MEDICARE (WNR) MEDICARE (M) PART B Nov 24, 2001 PART B [id number] [facility] RAMIREZ,B OBBY PATIENT MEDICARE (WNR) MEDICARE (M) PART A Nov 24, 2001 PART A [id number] [phone] RAMIREZ,B OBBY PATIENT MEDICARE (WNR) MEDICARE (M) PART B Nov 24, 2001 PART B [id number] RAMIREZ,B OBBY PATIENT MEDICARE (WNR) MEDICARE (M) PART A Nov 24, 2001 PART A [id number] [phone] RAMIREZ,B OBBY PATIENT MEDICARE (WNR) MEDICARE (M) PART B Nov 24, 2001 PART B [id number] RAMIREZ,B OBBY PATIENT Selected Encounter This section includes the information on record at [place] for the Encounter. Date/Time Encounter Type Encounter Description Reason Provider Source Apr 15, 2024 02:14 PM [facility] OL DIG ASSMT&MGMT 21+ CLINICAL PHARMACY ICD-10-CM Z95.5 Presence of coronary angioplasty implant and graft HAY ROUSE Anil Encounter Template Text not used by [place] Assessments - Encounter Diagnoses This section includes the primary and secondary diagnoses documented for the Encounter. Date/Time Primary/Secondary Diagnosis Diagnosis Name Provider Source Apr 15, 2024 02:26 PM PRIMARY Presence of coronary angioplasty implant and graft LIBAN FORREST [facility] Plan of Treatment: Future Appointments (+ 6 months) and Future Tests (+/- 45 days) The Plan of Treatment section includes future care activities for the patient from all [place] treatmentfacilities. This section includes future appointments and future orders which are active, pending or scheduled. Future Appointments This section includes appointments that were scheduled to occur 6 months from the date of the Encounter, up to a maximum of 20 appointments. The data comes from all [place] treatment facilities. Appointment Date/Time Appointment Type Appointme nt Facility Name May 10, 2024 08:00 AM [facility] [place] [facility] May 17, 2024 11:30 AM [facility] [place] [facility] Jul 23, 2024 01:30 PM AM[facility]ATORY - MEDICINE [facility] Lab Results: +/- 30 days of the encounter This section includes the Chemistry and Hematology Lab Results on record with [place] for the patient. Radiology Reports and Pathology Reports are provided separately, in subsequent sections. Lab Results This section contains the Chemistry/Hematology Results that were resulted 30 days before or 30 daysafter the date of the Encounter. Date/Time Source Result Type Result - Unit Interpretation Reference Range Specimen Type Comment May 10, 2024 08:59 AM [facility] N MICROALBUMIN/CREAT RATIO URINE Specimen Type: URINE No comment entered. Ordering Provider: FAHAD BLOCK Report Released Date/Time: May 10, 2024 08:34 AM Reporting Lab: [place] [id number] Performing Lab: [place] [id number] CREATININE 77.4 mg/dL MICROALBUMIN QUANT 370.8 mg/L H 0.0-30.0 .MICROALBUMIN/CREA RATIO 479.1 ug/mg{creat} May 10, 2024 08:59 AM [facility] URINALYSIS URINE Specimen Type: URINE No comment entered. Ordering Provider: FAHAD BLOCK Report Released Date/Time: May 10, 2024 08:34 AM Reporting Lab: [place] [id number] Performing Lab: [place] [id number] URINE COLOR Light Yellow Colorless-Yello w APPEARANCE [...] /[LPF] 0-2 May 10, 2024 08:59 AM [facility] DRUG SCREEN EXPANDED IN-HOUSE URINE Specimen Type: [...] May 10, 2024 08:34 AM Reporting Lab: [address] [phone] Performing Lab: [address] [address] TETRAHYDROCANNABINOL SCREEN NEG Cuto ff < 50 [...] < 1 May 10, 2024 08:49 AM [facility] CYSTATIN C WITH eGFR ([facility]) PLASMA Specimen Type: PLASMA No comment entered. Ordering Provider: FAHAD BLOCK Report Released Date/Time: May 10, 2024 08:34 AM Reporting Lab: [address] [address] Performing Lab: [address] [address] .CYSTATIN C ([facility]) 2.77 mg/L H 0.87-1.1 2 .eGFR ([facility]) 18 L >59 May 10, 2024 08:49 AM [facility] B12 VITAMIN PLASMA Specimen Type: PLASM A [...] May 10, 2024 08:34 AM Reporting Lab: [address] [address] Performing Lab: [address] [address] B12 VITAMIN >2000 pg/mL H 213-816 May 10, 2024 08:49 AM [facility]-[place] VITAMIN D SERUM Specime n Type: [...] May 10, 2024 08:34 AM Reporting Lab: [facility] [address] [facility] [address] Performing Lab: [address] [address] 25-OH VITAMIN D 50.1 ng/mL H 20.0-50.0 May 10, 2024 08:49 AM [facility] TSH PLASMA Specimen Type: PLASM A Comment: [...] May 10, 2024 08:34 AM Reporting Lab: [address] [address] Performing Lab: [address] [address] TSH 1.7870 m[IU]/mL 0.3500-4.9400 May 10, 2024 08:49 AM [facility] GLYCOHEMOGLOBIN BLOOD Specimen Type: BLOOD Comment: [place] guidelines for A1c interpretation: Glycemic control targets are based on Shared Decision Making between clinicians and patients. Criteria used to establish an A1c target recommendation can be found at https://www.[place].gov/qualityandpatientsafety/ and include the use of result accuracy [...] 8.73 and 9.27. Ref: https://ngsp.org/CAPdata.asp. The in-house [employer] D-100 analyzer has a historical CV <= 2%. Contact the laboratory for further performance characteristics of this assay. Ordering Provider: FAHAD BLOCK Report Released Date/Time: May 10, 2024 08:34 AM Reporting Lab: [address] [address] Performing Lab: [address] [address] GLYCOHEMOGLOBIN 7.5 H 4.4-6.4 May 10, 2024 08:49 AM [facility] CBC/PLT BLOOD Specimen Type: BLOOD No comment entered. Ordering Provider: FAHAD BLOCK Report Released Date/Time: May 10, 2024 08:34 AM Reporting Lab: [address] [address] Performing Lab: [place] [address] [facility] [address] WBC 6.3 10*3/uL 5.0-10.0 RBC 5.01 10*6/uL 4.6-6.2 HGB 15.5 g/dL 14.0-18.0 HCT 46.6 42.0-52.0 MCV 93.0 fL 80.0-94.0 MCH 30.9 pg 27.0-31.0 MCHC 33.3 g/dL 32.0-36.0 PLT 204 10*3/uL 150-450 MPV 9.8 fL 9.0-13.1 RDW 15.9 11.0-16.0 NRBC 0.0 0.0-0.0 May 10, 2024 08:49 AM [facility] LIPID PROFILE PLASMA Specimen Type: PLASM A [...] May 10, 2024 08:34 AM Reporting Lab: [facility] [address] [facility] [address] Performing Lab: [address] [address] CHOLESTEROL 227 mg/dL H 0-199 TRIGLYCERIDE 402 mg/dL H 0-149 HDL CHOLESTEROL 37 mg/dL L 40-69 DIRECT LDL CHOL. 63 mg/dL 0-100 May 10, 2024 08:49 [facility] Specimen Type: PLASM A [...] May 10, 2024 08:34 AM Reporting Lab: [address] [address] Performing Lab: [address] [address] CREATININE 2.77 mg/dL H 0.72-1.25 UREA NITROGEN [...] and tobacco- related health factors from the [place] facility where the Encounter took place. Current Smoking Status This section includes the most current smoking, or tobacco-related health factor, from the [place] facility where the Encounter took place. Date/Time Current Smoking Status Derrick douglas Aug 07, 2020 03:30 PM VA-TOBACCO USE 30 YEARS OR MORE [facility] Tobacco Use History This section includes a history of the smoking, or tobacco-related health factors, that were collected on or before the date of the Encounter. The data comes from the [place] facility where the Encounter took place. Date/Time Smoking Status/Tobacco Use Comment F acility Aug 07, 2020 03:30 PM VA-TOBACCO USE ADVICE [facility] Aug 07, 2020 03:30 PM VA-TOBACCO USE CERTIFIED ATHLETIC TRAINER NO [facility] Aug 07, 2020 03:30 PM VA-TOBACCO USE MED NO [facility] Aug 07, 2020 03:30 PM VA-TOBACCO USE WI 30 MIN OF WAKEUP [facility] Aug 07, 2020 03:30 PM VA-TOBACCO USER EVERY DAY [facility] Sep 07, 2015 02:27 PM V9 CURRENT TOBACCO USER [facility] Sep 07, 2015 02:27 PM V9 TOBACCO OFFERED [facility] Sep 07, 2015 02:27 PM V9 TOBACCO USE-DEC LINED MEDS [facility] Dec 02, 2008 06:27 PM TOBACCO OFFERRED P T MEDS (PROVIDER) [facility] Dec 02, 2008 06:27 PM V9 CURRENT TOBACCO USER [facility] Dec 02, 2008 06:27 PM V9 TOBACCO OFFERED [facility] Sep 05, 2007 07:04 PM TOBACCO OFFERRED P T MEDS (PROVIDER) [facility] Sep 05, 2007 07:04 PM V9 CURRENT TOBACCO USER [facility] Sep 05, 2007 07:04 PM V9 TOBACCO OFFERED [facility] Aug 10, 2006 06:03 PM TOBACCO OFFERRED P T MEDS (PROVIDER) [facility] Aug 10, 2006 06:03 PM V9 CURRENT TOBACCO USER [facility] Aug 10, 2006 06:03 PM V9 TOBACCO OFFERED [facility] Feb 22, 2006 09:55 PM HF V9 SECOND TOBAC CO CERTIFIED ATHLETIC TRAINER occ. [facility] Aug 16, 2005 08:17 AM HF V9 CURRENT SMOKER SMOKES UP TO 2 PACKS/WK [facility] Aug 09, 2004 12:56 PM HF V9 CURRENT NON-SMOKER about a week ago [facility] Jul 02, 2003 07:59 AM HF V9 CURRENT NON-SMOKER 7yrs ago [facility] Apr 26, 2002 11:54 AM HF V9 CURRENT NON-SMOKER quit about 5 yrs ago. [facility] Advance Directives: All historical and current Section Date Range: From patient's date of to the date document was created. This section includes ALL of a patient's completed or amended [place] Advance and Rescinded Directives. The entries below indicate that a directive exists for the patient, but an actual copy is not included with this document. The data comes from all [place] facilities. Date Advance Directives Provider Source Oct 17, 2011 ADVANCE DIRECTIVE DISCUSSION FAHADCO DARÍO Salazar [facility] Aug 11, 2010 ADVANCE DIRECTIVE DISCUSSION FAHAD,CO LETTE Martin [facility] Jun 04, 2009 ADVANCE DIRECTIVE DISCUSSION FAHAD,CO LETTE W [facility] Encounter Notes: All associated encounter notes This section contains the clinical notes associated to the Encounter. Date/Time Encounter Note(s) Provider Source Apr 15, 2024 02:14 PM PHARMACY CONSULT: LOCAL TITLE: PADR PHARMACY CONSULT RESPONSE STANDARD TITLE: PHARMACY CONSULT DATE OF NOTE: APR 15, 2024@14:14 ENTRY DATE: APR 15, 2024@14:14:36 AUTHOR: LIBAN FORREST COSIGNER: HAY ROUSE URGENCY: STATUS: COMPLETED PADR PHARMACY CONSULT RESPONSE Has ADDENDA The medical record has been reviewed with regard to this prior authorization drug request. Medication requested: PRASUGREL HCL 10MG TAB Medication indication: DAPT Medical history relevant to this request: PACT requesting prasugrel for 88 yo M, continuation from outside provider. Active problems - Computerized Problem List is the source for the followin. Chronic obstructive lung disease 2. Diabetes mellitus 3. Hyperlipidemia 4. Coronary artery disease 5. Gastroesophageal reflux disease 6. Low back pain 7. Coronary arteriosclerosis 8. Degeneration of cervical intervertebral disc 9. Chronic Kidney Disease, Unspecified 10. Tobacco Use Disorder, Continuous 11. Personal History of Colonic Polyps 12. Internal hemorrhoids without mention of complication 13. Hearing loss * 14. Peripheral Vascular Disease 15. Diabetes Mellitus Type II or unspecified 16. Osteoarthritis 17. Chronic ischemic heart disease 18. Hypertension (SNOMED CT [id number]) 19. Other and unspecified hyperlipidemia 20. Aneurysm, Aorta, Abdominal 4.5CM2 02/25 Pertinent Medication History/Trial(s) - Clopidogrel 75mg PO daily - Prasugrel 10mg PO daily - Ticagrelor 90mg PO daily Apr 2019 Criteria Discussion Prasugrel (EFFIENT) Criteria for Use Exclusion Criteria If the answer to ANY item below is met, then the patient should NOT receive prasugrel: (-) Active pathologic bleeding (-) Clinically important anemia or thrombocytopenia (-) History of prior transient ischemic attack (TIA), stroke, or intracranial hemorrhage (ICH) (-) Body weight less than 60 kg (-) Age 75 or older unless at high risk of ischemic events (e.g., diabetes mellitus or prior myocardial infarction) and otherwise low bleeding risk (-) Planned or recent fibrinolytic therapy (e.g., within past 24 hours) (-) Concomitant anticoagulant therapy (clopidogrel is preferred P2Y12 inhibitor for use in combination with an oral anticoagulant) (-) Severe hepatic impairment (-) Anticipated urgent coronary artery bypass graft (CABG) surgery (e.g., within 7 days) Inclusion Criteria The answer to one of the following must be fulfilled in order to meet criteria: (-) ST-elevation myocardial infarction acute coronary syndrome (STEMI-ACS) and undergoing PCI (-) Non-ST elevation ACS with planned PCI after coronary anatomy identified and deemed suitable for PCI, ischemic symptoms lasting =10 min and occurring within 72 hrs of presentation, EDUAR risk score of =3, and additional indicators. (-) Definite or probable acute stent thrombosis ([employer] definition) in patients documented to be compliant with aspirin and clopidogrel. (-) Reduced clopidogrel response (e.g., any documented QMC6H21 intermediate orpoor metabolizer phenotypes or high on-treatment platelet reactivity by P2Y12 reaction units [PRU] testing) and continued indication for P2Y12 inhibitor therapy (-) Extended duration dual antiplatelet therapy (DAPT=aspirin plus P2Y12 inhibitor) beyond 12 months following an ACS event as per Cardiology re- evaluation (-) Undergoing PCI with or without ACS in patients with clopidogrel allergy or true aspirin allergy Response Per most recent outside cardiology note on 11/16/23, patient is not on DAPT and last record of P2Y12 inhibitor is ticagrelor in 2019. No compelling indication to re-initiate therapy. Patient/Dr. Block, please confirm regimen with outside provider. The request DOES NOT MEET CRITERIA - Compelling evidence for the requested indication is lacking Time Spent (minutes): 30 /echo/ LIBAN FORREST PHARMD PGY1 TECHNICAL MAINTENANCE TECHNICIAN Signed: 04/15/2024 15:28 /echo/ Hay Rouse PharmD, BCPS Blowing Engineer- Pharmacoeconomics/Formulary Cosigned: 04/15/2024 15:33 04/15/2024 ADDENDUM STATUS: COMPLETED Reviewed and agree with consult decision as outlined above per Dr. Forrest, PGY-1 Pharmacy Practice Resident /echo/ Hay Rouse PharmD, BCPS Blowing Engineer- Pharmacoeconomics/Formulary Signed: 04/15/2024 15:34 LIBAN FORREST-[facility]
--- OUTSIDE RECORDS SUMMARY | 2024-04-16 11:42 | XMS_ITS | Encounter Summary ---
Author Name [facility] Organization [facility] [place] Address [address] [place] [id number] Care Team Providers Care Recording Clerk Name Role Phone FAHAD BLOCK Primary Care [...] Name Patient's Relationship to Policy [place] PL[place] MED-[place] U[place] PLAN C May 26, 2016 [id number] Samara RAMIREZ OBBY PATIENT [facility] MEDICARE SUPPLEMEN SELVIN KENTU CKY INDIV IDUAL Jun 26, 2008 [id number] [phone] Samara RAMIREZ OBBY PATIENT MEDICARE (WNR) MEDICARE (M) PART A Nov 24, 2001 PART A [id number] [facility] Samara RAMIREZ OBBY PATIENT MEDICARE (WNR) MEDICARE (M) PART B Nov 24, 2001 PART B [id number] Samara RAMIREZ OBBY PATIENT MEDICARE (WNR) MEDICARE (M) PART A Nov 24, 2001 PART A [id number] [facility] RAMIREZ,B OBBY PATIENT MEDICARE (WNR) MEDICARE (M) PART B Nov 24, 2001 PART B [id number] [facility] RAMIREZ,B OBBY PATIENT MEDICARE (WNR) MEDICARE (M) PART A Nov 24, 2001 PART A [id number] RAMIREZ,B OBBY PATIENT MEDICARE (WNR) MEDICARE (M) PART B Nov 24, 2001 PART B [id number] RAMIREZ,B OBBY PATIENT MEDICARE (WNR) MEDICARE (M) PART A Nov 24, 2001 PART A [id number] RAMIREZ,B OBBY PATIENT MEDICARE (WNR) MEDICARE (M) PART B Nov 24, 2001 PART B [id number] RAMIREZ,B OBBY PATIENT Selected Encounter This section includes the information on record at [place] for the Encounter. Date/Time Encounter Type Encounter Description Reason Pro vider Source Apr 16, 2024 03:42 PM Outpatient Encounter ADMIN PAT ACTIVTIES (MASNONCT) IHE Encounter Template Text not used by MS Plan of Treatment: Future Appointments (+ 6 months) and Future Tests (+/- 45 days) The Plan of Treatment section includes future care activities for the patient from all [place] treatmentfacilities. This section includes future appointments and future orders which are active, pending or scheduled. Future Appointments This section includes appointments that were scheduled to occur 6 months from the date of the Encounter, up to a maximum of 20 appointments. The data comes from all [place] treatment facilities. Appointment Date/Time Appointment Type Appointme nt Facility Name May 10, 2024 08:00 AM AMBULATORY - NONE [place] [facility] May 17, 2024 11:30 AM AM[facility]ULATORY - NONE [place] [facility] Jul 23, 2024 01:30 PM [facility] Lab Results: +/- 30 days of the encounter This section includes the Chemistry and Hematology Lab Results on record with [place] for the patient. Radiology Reports and Pathology Reports are provided separately, in subsequent sections. Lab Results This section contains the Chemistry/Hematology Results that were resulted 30 days before or 30 daysafter the date of the Encounter. Date/Time Source Result Type Result - Unit Interpretation Reference Range Specimen Type Comment May 10, 2024 08:59 AM [facility] N MICROALBUMIN/CREAT RATIO URINE Specimen Type: URINE No comment entered. Ordering Provider: FAHAD BLOCK Report Released Date/Time: May 10, 2024 08:34 AM Reporting Lab: [address] [address] Performing Lab: [place] [id number] CREATININE 77.4 mg/dL MICROALBUMIN QUANT 370.8 mg/L H 0.0-30.0 .MICROALBUMIN/CREA RATIO 479.1 ug/mg{creat} May 10, 2024 08:59 AM [facility] URINALYSIS URINE Specimen Type: URINE No comment entered. Ordering Provider: FAHAD BLOCK Report Released Date/Time: May 10, 2024 08:34 AM Reporting Lab: [address] [address] Performing Lab: [place] [id number] URINE COLOR Light Yellow Colorless-Yello w APPEARANCE [...] /[LPF] 0-2 May 10, 2024 08:59 AM [facility] DRUG SCREEN EXPANDED IN-HOUSE URINE Specimen [...] May 10, 2024 08:34 AM Reporting Lab: [address] [address] Performing Lab: [address] [address] TETRAHYDROCANNABINOL SCREEN NEG Cuto ff < 50 [...] < 1 May 10, 2024 08:49 AM [facility] CYSTATIN C WITH eGFR ([facility]) PLASMA Specimen Type: PLASMA No comment entered. Ordering Provider: FAHAD BLOCK Report Released Date/Time: May 10, 2024 08:34 AM Reporting Lab: [address] [address] Performing Lab: [address] [address] .CYSTATIN C ([facility]) 2.77 mg/L H 0.87-1.1 2 .eGFR ([facility]) 18 L >59 May 10, 2024 08:49 AM [facility] B12 VITAMIN PLASMA Specimen Type: PLASM [...] May 10, 2024 08:34 AM Reporting Lab: [address] [address] Performing Lab: [address] [address] B12 VITAMIN >2000 pg/mL H 213-816 May 10, 2024 08:49 AM [facility] 25-OH VITAMIN D SERUM Specime n [...] May 10, 2024 08:34 AM Reporting Lab: [address] [address] Performing Lab: [place] [id number] 25-OH VITAMIN D 50.1 ng/mL H 20.0-50.0 May 10, 2024 08:49 AM [facility] TSH PLASMA Specimen Type: PLASM A [...] 10, 2024 08:34 AM Reporting Lab: [place] [address] [address] Performing Lab: [address] [address] TSH 1.7870 m[IU]/mL 0.3500-4.9400 May 10, 2024 08:49 AM [facility] GLYCOHEMOGLOBIN BLOOD Specimen Type: BLOOD Comment: [facility] guidelines for A1c interpretation: Glycemic control targets are based on Shared Decision Making between clinicians and patients. Criteria used to establish an A1c target recommendation can be found at https://www.co.gov/qualityandpatientsafety/ and include the use of result accuracy [...] 8.73 and 9.27. Ref: https://ngsp.org/CAPdata.asp. The in-house Quest Discovery D-100 analyzer has a historical CV <= 2%. Contact the laboratory for further performance characteristics of this assay. Ordering Provider: FAHAD BLOCK Report Released Date/Time: May 10, 2024 08:34 AM Reporting Lab: [place] [id number] Performing Lab: [place] [id number] GLYCOHEMOGLOBIN 7.5 H 4.4-6.4 May 10, 2024 08:49 AM [facility] CBC/PLT BLOOD Specimen Type: BLOOD No comment entered. Ordering Provider: FAHAD BLOCK Report Released Date/Time: May 10, 2024 08:34 AM Reporting Lab: [address] [address] Performing Lab: [address] [address] WBC 6.3 10*3/uL 5.0-10.0 RBC 5.01 10*6/uL 4.6-6.2 HGB 15.5 g/dL 14.0-18.0 HCT 46.6 42.0-52.0 MCV 93.0 fL 80.0-94.0 MCH 30.9 pg 27.0-31.0 MCHC 33.3 g/dL 32.0-36.0 PLT 204 10*3/uL 150-450 MPV 9.8 fL 9.0-13.1 RDW 15.9 11.0-16.0 NRBC 0.0 0.0-0.0 May 10, 2024 08:49 AM [facility] LIPID PROFILE PLASMA Specimen Type: PLASM [...] May 10, 2024 08:34 AM Reporting Lab: [facility] [address] [facility] [address] Performing Lab: [facility] [address] [facility] [address] CHOLESTEROL 227 mg/dL H 0-199 TRIGLYCERIDE 402 mg/dL H 0-149 HDL CHOLESTEROL 37 mg/dL L 40-69 DIRECT LDL CHOL. 63 mg/dL 0-100 May 10, 2024 08:49 AM [facility] PANEL 5 PLASMA Specimen Type: PLASM A [...] May 10, 2024 08:34 AM Reporting Lab: [address] [address] Performing Lab: [address] [address] CREATININE 2.77 mg/dL H 0.72-1.25 UREA NITROGEN [...] and tobacco- related health factors from the [place] facility where the Encounter took place. Current Smoking Status This section includes the most current smoking, or tobacco-related health factor, from the [place] facility where the Encounter took place. Date/Time Current Smoking Status Comment Jose Luis ity Aug 07, 2020 03:30 PM VA-TOBACCO USER EVERY DAY [facility] Tobacco Use History This section includes a history of the smoking, or tobacco-related health factors, that were collected on or before the date of the Encounter. The data comes from the [place] facility where the Encounter took place. Date/Time Smoking Status/Tobacco Use Comment F acility Aug 07, 2020 03:30 PM MS-TOBACCO USE ADVICE [facility] Aug 07, 2020 03:30 PM VA-TOBACCO USE SUPPLIER QUALITY SPECIALIST NO [facility] Aug 07, 2020 03:30 PM VA-TOBACCO USE MED NO [facility] Aug 07, 2020 03:30 PM VA-TOBACCO USE WI 30 MIN OF WAKEUP [facility] Aug 07, 2020 03:30 PM VA-TOBACCO USER EVERY DAY [facility] Sep 07, 2015 02:27 PM V9 CURRENT TOBACCO USER [facility] Sep 07, 2015 02:27 PM V9 TOBACCO OFFERED [facility] Sep 07, 2015 02:27 PM V9 TOBACCO USE-DEC LINED MEDS [facility] Dec 02, 2008 06:27 PM TOBACCO OFFERRED P T MEDS (PROVIDER) [facility] Dec 02, 2008 06:27 PM V9 CURRENT TOBACCO USER [facility] Dec 02, 2008 06:27 PM V9 TOBACCO OFFERED [facility] Sep 05, 2007 07:04 PM TOBACCO OFFERRED P T MEDS (PROVIDER) [facility] Sep 05, 2007 07:04 PM V9 CURRENT TOBACCO USER [facility] Sep 05, 2007 07:04 PM V9 TOBACCO OFFERED [facility] Aug 10, 2006 06:03 PM TOBACCO OFFERRED P T MEDS (PROVIDER) [facility] Aug 10, 2006 06:03 PM V9 CURRENT TOBACCO USER [facility] Aug 10, 2006 06:03 PM V9 TOBACCO OFFERED [facility] Feb 22, 2006 09:55 PM HF V9 SECOND TOBAC CO SUPPLIER QUALITY SPECIALIST occ. [facility] Aug 16, 2005 08:17 AM HF V9 CURRENT SMOKER SMOKES UP TO 2 PACKS/WK [facility] Aug 09, 2004 12:56 PM HF V9 CURRENT NON-SMOKER about a week ago [facility] Jul 02, 2003 07:59 AM HF V9 CURRENT NON-SMOKER 7yrs ago [facility] Apr 26, 2002 11:54 AM HF V9 CURRENT NON-SMOKER quit about 5 yrs ago. [facility] Advance Directives: All historical and current Section Date Range: From patient's date of to the date document was created. This section includes ALL of a patient's completed or amended [place] Advance and Rescinded Directives. The entries below indicate that a directive exists for the patient, but an actual copy is not included with this document. The data comes from all [place] facilities. Date Advance Directives Provider Source Oct 17, 2011 ADVANCE DIRECTIVE DISCUSSION AMY VÁSQUEZ [facility] Aug 11, 2010 ADVANCE DIRECTIVE DISCUSSION AMY VÁSQUEZ [facility] Jun 04, 2009 ADVANCE DIRECTIVE DISCUSSION [facility]Y [facility]QUEZ [facility] Encounter Notes: All associated encounter notes This section contains the clinical notes associated to the Encounter. Date/Time Encounter Note(s) Provider Source Apr 16, 2024 03:42 PM ADMINISTRATIVE NOT E: LOCAL TITLE: CLERICAL/ADMIN NOTE STANDARD TITLE: ADMINISTRATIVE NOTE DATE OF NOTE: APR 16, 2024@15:42 ENTRY DATE: APR 16, 2024@15:42:22 AUTHOR: OPAL LANE EXP COSIGNER: URGENCY: STATUS: COMPLETED Contacted and scheduled recall appt. as follows: DICK PACT ALPHA 1-3 May 10, 2024@08:[address] [facility] PPDD/T LETTER MAILED /es/ [address] AMS Signed: 04/16/2024 15:42 [facility]
--- OUTSIDE RECORDS SUMMARY | 2024-05-08 05:09 | XMS_ITS | Encounter Summary ---
Author Name [facility] [place] Organization [facility] [place] Address [address] [place] [id number] Care Team Providers Care Twist Maker Name Role Phone FAHAD BLOCK Primary Care [...] Name Patient's Relationship to Policy [place] MED-[place] UPP PLAN C May 26, 2016 [id number] Samara RAMIREZ OBBY PATIENT [facility] BLUECARD MEDICARE SUPPLEMEN SELVIN [place] CKY INDIV IDUAL Jun 26, 2008 [id number] [phone] Samara RAMIREZ OBBY PATIENT MEDICARE (WNR) MEDICARE (M) PART A Nov 24, 2001 PART A [id number] [facility] Samara RAMIREZ OBBY PATIENT MEDICARE (WNR) MEDICARE (M) PART B Nov 24, 2001 PART B [id number] Samara RAMIREZ OBBY PATIENT MEDICARE (WNR) MEDICARE (M) PART A Nov 24, 2001 PART A [id number] [facility] [phone] RAMIREZ,B OBBY PATIENT MEDICARE (WNR) MEDICARE (M) PART B Nov 24, 2001 PART B [id number] [facility] RAMIREZ,B OBBY PATIENT MEDICARE (WNR) MEDICARE (M) PART B Nov 24, 2001 PART B [id number] RAMIREZ,B OBBY PATIENT MEDICARE (WNR) MEDICARE (M) PART A Nov 24, 2001 PART A [id number] [phone] [id number] RAMIREZ,B OBBY PATIENT MEDICARE (WNR) MEDICARE (M) PART A Nov 24, 2001 PART A [id number] [phone] [id number] RAMIREZ,B OBBY PATIENT MEDICARE (WNR) MEDICARE (M) PART B Nov 24, 2001 PART B [id number] RAMIREZ,B OBBY PATIENT Selected Encounter This section includes the information on record at [place] for the Encounter. Date/Time Encounter Type Encounter Description Reason Pro vider Source May 08, 2024 09:09 AM Outpatient Encounter ADMIN PAT ACTIVTIES (MASNONCT) IHE Encounter Template Text not used by [place] Plan of Treatment: Future Appointments (+ 6 [...] 08:00 AM AM[facility]ATORY - NONE [place] [facility] May 17, 2024 11:30 AM AMBULATORY - NONE [place] [facility] Jul 23, 2024 01:30 PM AMBULATORY - MEDICINE [facility] Lab Results: +/- 30 days of the [...] Interpretation Reference Range Specimen Type Comment May 17, 2024 10:47 AM [facility] WN PHOSPHORUS PLASMA Specimen Type: PLASMA No comment entered. Ordering Provider: FAHAD BLOCK Report Released Date/Time: May 10, 2024 10:41 PM Reporting Lab: [address] [address] Performing Lab: [place] [phone] PHOSPHORUS 5.1 mg/dL H 2.3-4.7 May 17, 2024 10:47 AM [facility] IONIZED CALCIUM BLOOD Specime n Type: BLOOD No comment entered. Ordering Provider: FAHAD BLOCK Report Released Date/Time: May 10, 2024 10:41 PM Reporting Lab: [address] [address] Performing Lab: [place] [phone] IONIZED CALCIUM 1.22 mmol/L 1.15-1.29 May 17, 2024 10:47 AM [facility] PTH INTACT ([place]) PLASMA Spe cimen Type: PLASMA Comment: For intraoperative testing samples drawn 10 minutes post resection should decrease >50% from the highest baseline. STAT assay time 18 minutes. Dialysis patients are typically maintained by using multiples of the reference range upper limit: this is the [place] assay, a 2nd generation intact PTH method. Hemolysis and high levels of protein can interfere. Heterophilic antibodies can interfere. Ordering Provider: FAHAD BLOCK Report Released Date/Time: May 10, 2024 10:41 PM Reporting Lab: [place] [phone] Performing Lab: [address] [address] PTH INTACT ([place]) 105.1 pg/mL H 8.7-77.1 May 10, 2024 08:59 AM [facility] MICROALBUMIN/CREAT RATIO URINE Specimen Type: URINE No comment entered. Ordering Provider: FAHAD BLOCK Report Released Date/Time: May 10, 2024 08:34 AM Reporting Lab: [address] [address] Performing Lab: [address] [address] CREATININE 77.4 mg/dL MICROALBUMIN QUANT 370.8 mg/L H 0.0-30.0 .MICROALBUMIN/CREA RATIO 479.1 ug/mg{creat} May 10, 2024 08:59 AM [facility] URINALYSIS URINE Specimen Type: URINE No comment entered. Ordering Provider: FAHAD BLOCK Report Released Date/Time: May 10, 2024 08:34 AM Reporting Lab: [address] [address] Performing Lab: [address] [address] URINE COLOR Light Yellow Colorless-Yello w APPEARANCE [...] /[LPF] 0-2 May 10, 2024 08:59 AM [facility] DRUG SCREEN EXPANDED IN-HOUSE URINE Specimen [...] May 10, 2024 08:34 AM Reporting Lab: [address] [address] Performing Lab: [address] [address] TETRAHYDROCANNABINOL SCREEN NEG Cuto ff < 50 [...] < 1 May 10, 2024 08:49 AM [facility] CYSTATIN C WITH eGFR ([facility]) PLASMA Specimen Type: PLASMA No comment entered. Ordering Provider: FAHAD BLOCK Report Released Date/Time: May 10, 2024 08:34 AM Reporting Lab: [facility] [address] [facility] [address] Performing Lab: [facility] [address] [facility] [address] .CYSTATIN C ([facility]) 2.77 mg/L H 0.87-1.1 2 .eGFR ([facility]) 18 L >59 May 10, 2024 08:49 AM [facility] B12 VITAMIN PLASMA Specimen Type: PLASM [...] May 10, 2024 08:34 AM Reporting Lab: [address] [address] Performing Lab: [address] [address] B12 VITAMIN >2000 pg/mL H 213-816 May 10, 2024 08:49 AM [facility] 25-OH VITAMIN D SERUM Specime n [...] May 10, 2024 08:34 AM Reporting Lab: [address] [address] Performing Lab: [address] [address] 25-OH VITAMIN D 50.1 ng/mL H 20.0-50.0 May 10, 2024 08:49 AM [facility] TSH PLASMA Specimen Type: PLASM A [...] May 10, 2024 08:34 AM Reporting Lab: [address] [address] Performing Lab: [address] [address] TSH 1.7870 m[IU]/mL 0.3500-4.9400 May 10, 2024 08:49 AM [facility] GLYCOHEMOGLOBIN BLOOD Specimen Type: BLOOD Comment: [place] guidelines for A1c interpretation: Glycemic control targets are based on Shared Decision Making between clinicians and patients. Criteria used to establish an A1c target recommendation can be found at https://www.id.gov/qualityandpatientsafety/ and include the use of result accuracy [...] 8.73 and 9.27. Ref: https://ngsp.org/CAPdata.asp. The in-house SRE [place] [employer] D-100 analyzer has a historical CV <= 2%. Contact the laboratory for further performance characteristics of this assay. Ordering Provider: FAHAD BLOCK Report Released Date/Time: May 10, 2024 08:34 AM Reporting Lab: [address] [address] Performing Lab: [address] [address] GLYCOHEMOGLOBIN 7.5 H 4.4-6.4 May 10, 2024 08:49 AM [facility] LIPID PROFILE PLASMA Specimen Type: PLASM [...] May 10, 2024 08:34 AM Reporting Lab: [address] [address] Performing Lab: [address] [address] CHOLESTEROL 227 mg/dL H 0-199 TRIGLYCERIDE 402 mg/dL H 0-149 HDL CHOLESTEROL 37 mg/dL L 40-69 DIRECT LDL CHOL. 63 mg/dL 0-100 May 10, 2024 08:49 AM [facility] CBC/PLT BLOOD Specimen Type: BLOOD No comment entered. Ordering Provider: FAHAD BLOCK Report Released Date/Time: May 10, 2024 08:34 AM Reporting Lab: [address] [address] Performing Lab: [address] [address] WBC 6.3 10*3/uL 5.0-10.0 RBC 5.01 10*6/uL 4.6-6.2 HGB 15.5 g/dL 14.0-18.0 HCT 46.6 42.0-52.0 MCV 93.0 fL 80.0-94.0 MCH 30.9 pg 27.0-31.0 MCHC 33.3 g/dL 32.0-36.0 PLT 204 10*3/uL 150-450 MPV 9.8 fL 9.0-13.1 RDW 15.9 11.0-16.0 NRBC 0.0 0.0-0.0 May 10, 2024 08:49 AM [facility] PANEL 5 PLASMA Specimen Type: PLASM [...] May 10, 2024 08:34 AM Reporting Lab: [facility] [address] [facility] [address] Performing Lab: [facility] [address] [facility] [address] CREATININE 2.77 mg/dL H 0.72-1.25 UREA NITROGEN [...] Date/Time Current Smoking Status Comment Jose Luis [email or web address] Aug 07, 2020 03:30 PM VA-TOBACCO USER EVERY DAY [facility] Tobacco Use History This section includes a history of the smoking, or tobacco-related health factors, that were collected on or before the date of the Encounter. The data comes from the [place] facility where the Encounter took place. 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 [facility] Aug 07, 2020 03:30 PM VA-TOBACCO USE MED NO [facility] Aug 07, 2020 03:30 PM VA-TOBACCO USE WI 30 MIN OF WAKEUP [facility] Aug 07, 2020 03:30 PM VA-TOBACCO USER EVERY DAY [facility] Sep 07, 2015 02:27 PM V9 CURRENT TOBACCO USER [facility] Sep 07, 2015 02:27 PM V9 TOBACCO OFFERED [facility] Sep 07, 2015 02:27 PM V9 TOBACCO USE-DEC LINED MEDS [facility] Dec 02, 2008 06:27 PM TOBACCO OFFERRED P T MEDS (PROVIDER) [facility] Dec 02, 2008 06:27 PM V9 CURRENT TOBACCO USER [facility] Dec 02, 2008 06:27 PM V9 TOBACCO OFFERED [facility] Sep 05, 2007 07:04 PM TOBACCO OFFERRED P T MEDS (PROVIDER) [facility] Sep 05, 2007 07:04 PM V9 CURRENT TOBACCO USER [facility] Sep 05, 2007 07:04 PM V9 TOBACCO OFFERED [facility] Aug 10, 2006 06:03 PM TOBACCO OFFERRED P T MEDS (PROVIDER) [facility] Aug 10, 2006 06:03 PM V9 CURRENT TOBACCO USER [facility] Aug 10, 2006 06:03 PM V9 TOBACCO OFFERED [facility] Feb 22, 2006 09:55 PM HF V9 SECOND TOBAC CO PRINTING GRAY CLOTH TENDER occ. [facility] Aug 16, 2005 08:17 AM HF V9 CURRENT SMOKER SMOKES UP TO 2 PACKS/WK [facility] Aug 09, 2004 12:56 PM HF V9 CURRENT NON-SMOKER about a week ago [facility] Jul 02, 2003 07:59 AM HF V9 CURRENT NON-SMOKER 7yrs ago [facility] Apr 26, 2002 11:54 AM HF V9 CURRENT NON-SMOKER quit about 5 yrs ago. [facility] Advance Directives: All historical and current [...] 17, 2011 ADVANCE DIRECTIVE DISCUSSION AMY VÁSQUEZ [facility] Aug 11, 2010 ADVANCE DIRECTIVE DISCUSSION AMY VÁSQUEZ [facility] Jun 04, 2009 ADVANCE DIRECTIVE DISCUSSION AMY VÁSQUEZ [facility] Radiology Reports: +/- 30 days of the encounter Radiology Reports For cases when an order for radiology services may have been completed prior to the date of the Encounter, the report list includes the Radiology Reports that were completed up to 30 days before dateof the Encounter. For cases when an order for radiology services may have been completed after the date of the Encounter, the report list also includes the Radiology Reports that were completed up to30 days after date of the Encounter. The data comes from all [place] treatment facilities. 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 The kidneys appear normal in echotexture and size. The right kidney measures 9.6 cm and the left kidney measures 9.1 cm in length. Left renal cyst is seen measuring 1.9 cm No hydronephrosis or renal stones are seen. The urinary bladder is visualized Impression: 1. Left renal cyst. Otherwise unremarkable renal ultrasound. No hydronephrosis. Primary Diagnostic Code: NO ALERT REQUIRED Primary Interpreting Staff: DIEGO ASHLEY, Staff Physician Verified by broommaker for DIEGO ASHLEY /DIEGO MAXWELL [facility] Encounter Notes: All associated encounter notes This section contains the clinical notes associated to the Encounter. Date/Time Encounter Note(s) Provider Source May 08, 2024 09:09 AM PHARMACY MEDICATIO N MGT NOTE: LOCAL TITLE: CONTROLLED SUBSTANCE RENEWAL REQUEST STANDARD TITLE: PHARMACY MEDICATION MGT NOTE DATE OF NOTE: MAY 08, 2024@09:09 ENTRY DATE: MAY 08, 2024@09:09:46 AUTHOR: LUKE BROTHERS EXP COSIGNER: URGENCY: STATUS: COMPLETED Rx requested - HYDROCODONE 7.5/ACETAMINOPHEN 325MG TAB Last fill date - 03.04.24 Progress Note Date Title Author (and Author's Title) JUN 02, 2023@07:56 PC PROGRESS NOTE MARIIA PETERSON (PRIMARY CA YOUNG/PDMP Progress Note Date Title Author (and Author's Title) MAR 04, 2024@20:01:45STATE PRESCRIPTION FAHAD SANDERS (PRIMARY CARE PHYSI No data available for: NALOXONE NALOXONE AUTOINJECTOR IM RESCUE NALOXONE NASAL RESCUE 4MG NALOXONE NASAL RESCUE 8MG NALOXONE NASAL RESCUE Mail ID signer [place] alert sent to FAHAD BLOCK Primary Care Provider Comments: DRUG SCREEN: ONLY Drug Screens within the prior 12 months will be listed Drug Screen: Collection DT Specimen Test Name Result Units Ref Range 06/02/2023 08:50 URINE !! THC SCR NEG Ref: Cutoff < 50 06/02/2023 08:50 URINE !! AMPHETAMINE SCR NEG Ref: Cutoff < 1000 06/02/2023 08:50 URINE !! BARBITURATES SCR NEG Ref: Cutoff < 200 06/02/2023 08:50 URINE !! BENZODIAZEPINES S NEG Ref: Cutoff < 200 06/02/2023 08:50 URINE !! COCAINu NEG Ref: Cutoff < 300 06/02/2023 08:50 URINE !! OPIATES SCR POS Ref: Cutoff < 300 06/02/2023 08:50 URINE !! METHADONE SCR NEG Ref: Cutoff < 300 06/02/2023 08:50 URINE !! OXYCODONE SCR NEG Ref: Cutoff < 200 !! Indicates COMMENTS AVAILABLE...Refer to Interim Lab Report. /echo/ Luke Brothers CPhT Pharm[facility] Lamina Searcher Signed: 05/08/2024 09:09 Receipt Acknowledged By: 05/08/2024 20:04 /echo/ LUKE ROSARIO MD-[place] [facility]
--- OUTSIDE RECORDS SUMMARY | 2024-05-08 09:16 | XMS_ITS ---
Author Name [facility] Organization [facility] [place] Address [address] [place] [id number] Care Team Providers Care Mixer And Blender Name Role Phone FAHAD BLOCK Primary Care [...] Berg's Name Patient's Relationship to Policy Berg [facility] MEDIGAP PLAN C [place] MED-[place] UPP PLAN C May 26, 2016 [id number] Samara RAMIREZ OBBY PATIENT [facility] BLUECARD MEDICARE SUPPLEMEN SELVIN [place] CKY INDIV IDUAL Jun 26, 2008 [id number] [phone] Samara RAMIREZ OBBY PATIENT MEDICARE (WNR) MEDICARE (M) PART A Nov 24, 2001 PART A [id number] [facility] Samara RAMIREZ OBBY PATIENT MEDICARE (WNR) MEDICARE (M) PART B Nov 24, 2001 PART B [id number] [facility] Samara RAMIREZ OBBY PATIENT MEDICARE (WNR) MEDICARE (M) PART B Nov 24, 2001 PART B [id number] [facility] RAMIREZ,B OBBY PATIENT MEDICARE (WNR) MEDICARE (M) PART A Nov 24, 2001 PART A [id number] [facility] RAMIREZ,B OBBY PATIENT MEDICARE (WNR) MEDICARE (M) PART A Nov 24, 2001 PART A [id number] RAMIREZ,B OBBY PATIENT MEDICARE (WNR) MEDICARE (M) PART B Nov 24, 2001 PART B [id number] [phone] RAMIREZ,B OBBY PATIENT MEDICARE (WNR) MEDICARE (M) PART A Nov 24, 2001 PART A [id number] RAMIREZ,B OBBY PATIENT MEDICARE (WNR) MEDICARE (M) PART B Nov 24, 2001 PART B [id number] RAMIREZ,B OBBY PATIENT Selected Encounter This section includes the information on record at [place] for the Encounter. Date/Time Encounter Type Encounter Description Reason Pro vider Source May 08, 2024 01:16 PM Outpatient Encounter ADMIN PAT ACTIVTIES (MASNONCT) [...] 08:00 AM [facility]ONE [facility] May 17, 2024 11:30 AM [facility] - NONE [facility] [facility] Jul 23, 2024 01:30 PM [facility] Lab Results: +/- 30 days of [...] Type Comment May 17, 2024 10:47 AM [facility] WN PHOSPHORUS PLASMA Specimen Type: PLASMA No comment entered. Ordering Provider: FAHAD BLOCK Report Released Date/Time: May 10, 2024 10:41 PM Reporting Lab: [address] [address] Performing Lab: [place] [id number] PHOSPHORUS 5.1 mg/dL H 2.3-4.7 May 17, 2024 10:47 AM [facility] IONIZED CALCIUM BLOOD Specime n Type: BLOOD No comment entered. Ordering Provider: FAHAD BLOCK Report Released Date/Time: May 10, 2024 10:41 PM Reporting Lab: [address] [address] Performing Lab: [place] [id number] IONIZED CALCIUM 1.22 mmol/L 1.15-1.29 May 17, 2024 10:47 AM [facility] PTH INTACT ([place]) PLASMA Spe [...] May 10, 2024 10:41 PM Reporting Lab: [place] [id number] Performing Lab: [address] [address] PTH INTACT ([place]) 105.1 pg/mL H 8.7-77.1 May 10, 2024 08:59 AM [facility] MICROALBUMIN/CREAT RATIO URINE Specimen Type: URINE No comment entered. Ordering Provider: FAHAD BLOCK Report Released Date/Time: May 10, 2024 08:34 AM Reporting Lab: [address] [address] Performing Lab: [address] [address] CREATININE 77.4 mg/dL MICROALBUMIN QUANT 370.8 mg/L H 0.0-30.0 .MICROALBUMIN/CREA RATIO 479.1 ug/mg{creat} May 10, 2024 08:59 AM [facility] URINALYSIS URINE Specimen Type: URINE No comment entered. Ordering Provider: FAHAD BLOCK Report Released Date/Time: May 10, 2024 08:34 AM Reporting Lab: [address] [address] Performing Lab: [address] [address] URINE COLOR Light Yellow Colorless-Yello w APPEARANCE [...] /[LPF] 0-2 May 10, 2024 08:59 AM [facility] DRUG SCREEN EXPANDED IN-HOUSE URINE [...] May 10, 2024 08:34 AM Reporting Lab: [address] [address] Performing Lab: [address] [address] TETRAHYDROCANNABINOL SCREEN NEG Cuto ff < 50 [...] < 1 May 10, 2024 08:49 AM [facility] CYSTATIN C WITH eGFR ([facility]) PLASMA Specimen Type: PLASMA No comment entered. Ordering Provider: FAHAD BLOCK Report Released Date/Time: May 10, 2024 08:34 AM Reporting Lab: [address] [address] Performing Lab: [address] [address] .CYSTATIN C ([facility]) 2.77 mg/L H 0.87-1.1 2 .eGFR ([facility]) 18 L >59 May 10, 2024 08:49 AM [facility] 25-OH VITAMIN D SERUM Specime [...] May 10, 2024 08:34 AM Reporting Lab: [address] [address] Performing Lab: [address] [address] 25-OH VITAMIN D 50.1 ng/mL H 20.0-50.0 May 10, 2024 08:49 AM [facility] B12 VITAMIN PLASMA Specimen Type: [...] May 10, 2024 08:34 AM Reporting Lab: [address] [address] Performing Lab: [address] [address] B12 VITAMIN >2000 pg/mL H 213-816 May 10, 2024 08:49 AM [facility] CBC/PLT BLOOD Specimen Type: BLOOD No comment entered. Ordering Provider: FAHAD BLOCK Report Released Date/Time: May 10, 2024 08:34 AM Reporting Lab: [address] [address] Performing Lab: [facility] [address] [facility] [address] WBC 6.3 10*3/uL 5.0-10.0 RBC 5.01 10*6/uL 4.6-6.2 HGB 15.5 g/dL 14.0-18.0 HCT 46.6 42.0-52.0 MCV 93.0 fL 80.0-94.0 MCH 30.9 pg 27.0-31.0 MCHC 33.3 g/dL 32.0-36.0 PLT 204 10*3/uL 150-450 MPV 9.8 fL 9.0-13.1 RDW 15.9 11.0-16.0 NRBC 0.0 0.0-0.0 May 10, 2024 08:49 AM [facility] TSH PLASMA Specimen Type: PLASM [...] May 10, 2024 08:34 AM Reporting Lab: [address] [address] Performing Lab: [address] [address] TSH 1.7870 m[IU]/mL 0.3500-4.9400 May 10, 2024 08:49 AM [facility] GLYCOHEMOGLOBIN BLOOD Specimen Type: BLOOD Comment: [place] guidelines for A1c interpretation: Glycemic control targets are based on Shared Decision Making between clinicians and patients. Criteria used to establish an A1c target recommendation can be found at https://www.ne.gov/qualityandpatientsafety/ and include the use of result accuracy [...] 8.73 and 9.27. Ref: https://ngsp.org/CAPdata.asp. The in-house [employer] D-100 analyzer has a historical CV <= 2%. Contact the laboratory for further performance characteristics of this assay. Ordering Provider: FAHAD BLOCK Report Released Date/Time: May 10, 2024 08:34 AM Reporting Lab: [address] [address] Performing Lab: [address] [address] GLYCOHEMOGLOBIN 7.5 H 4.4-6.4 May 10, 2024 08:49 AM [facility] LIPID PROFILE PLASMA Specimen Type: [...] May 10, 2024 08:34 AM Reporting Lab: [address] [address] Performing Lab: [address] [address] CHOLESTEROL 227 mg/dL H 0-199 TRIGLYCERIDE 402 mg/dL H 0-149 HDL CHOLESTEROL 37 mg/dL L 40-69 DIRECT LDL CHOL. 63 mg/dL 0-100 May 10, 2024 08:49 AM [facility] PLASMA Specimen Type: PLASM A Comment: [...] May 10, 2024 08:34 AM Reporting Lab: [facility] [address] [facility] [address] Performing Lab: [facility] [address] [facility] [address] CREATININE 2.77 mg/dL H 0.72-1.25 UREA NITROGEN [...] ity Aug 07, 2020 03:30 PM VA-TOBACCO USE WI 30 MIN OF WAKE UP [facility] Tobacco Use History This section includes a history of the smoking, or tobacco-related health factors, that were collected on or before the date of the Encounter. The data comes from the [place] facility where the Encounter took place. Date/Time Smoking Status/Tobacco Use Comment F acility Aug 07, 2020 03:30 PM VA-TOBACCO USE ADVICE [facility] Aug 07, 2020 03:30 PM VA-TOBACCO USE RUBBER BELT SPLICER NO [facility] Aug 07, 2020 03:30 PM VA-TOBACCO USE MED NO [facility] Aug 07, 2020 03:30 PM VA-TOBACCO USE WI 30 MIN OF WAKEUP [facility] Aug 07, 2020 03:30 PM VA-TOBACCO USER EVERY DAY [facility] Sep 07, 2015 02:27 PM V9 CURRENT TOBACCO USER [facility] Sep 07, 2015 02:27 PM V9 TOBACCO OFFERED [facility] Sep 07, 2015 02:27 PM V9 TOBACCO USE-DEC LINED MEDS [facility] Dec 02, 2008 06:27 PM TOBACCO OFFERRED P T MEDS (PROVIDER) [facility] Dec 02, 2008 06:27 PM V9 CURRENT TOBACCO USER [facility] Dec 02, 2008 06:27 PM V9 TOBACCO OFFERED [facility] Sep 05, 2007 07:04 PM TOBACCO OFFERRED P T MEDS (PROVIDER) [facility] Sep 05, 2007 07:04 PM V9 CURRENT TOBACCO USER [facility] Sep 05, 2007 07:04 PM V9 TOBACCO OFFERED [facility] Aug 10, 2006 06:03 PM TOBACCO OFFERRED P T MEDS (PROVIDER) [facility] Aug 10, 2006 06:03 PM V9 CURRENT TOBACCO USER [facility] Aug 10, 2006 06:03 PM V9 TOBACCO OFFERED [facility] Feb 22, 2006 09:55 PM HF V9 SECOND TOBAC CO RUBBER BELT SPLICER occ. [facility] Aug 16, 2005 08:17 AM HF V9 CURRENT SMOKER SMOKES UP TO 2 PACKS/WK [facility] Aug 09, 2004 12:56 PM HF V9 CURRENT NON-SMOKER about a week ago [facility] Jul 02, 2003 07:59 AM HF V9 CURRENT NON-SMOKER 7yrs ago [facility] Apr 26, 2002 11:54 AM HF V9 CURRENT NON-SMOKER quit about 5 yrs ago. [facility] Advance Directives: All historical and current Section [...] 17, 2011 ADVANCE DIRECTIVE DISCUSSION AMY VÁSQUEZ [facility] Aug 11, 2010 ADVANCE DIRECTIVE DISCUSSION AMY VÁSQUEZ [facility] Jun 04, 2009 ADVANCE DIRECTIVE DISCUSSION AMY VÁSQUEZ [facility] Radiology Reports: +/- 30 days of the [...] the Encounter. The data comes from all [place] treatment facilities. Date/Time Radiology Report Provider Source May 17, 2024 10:53 AM U/S KIDNEYS: CED RAMIREZ [id number] [id number] M Exm Date: MAY 17, 2024@10:53 Req Phys: FAHAD BLOCK Pat Loc: DICK PACT ALPHA 1-3 (Req'g Loc) Img Loc: ULTRASOUND Service: [place] [address] (Case [id number] COMPLETE)U/S KIDNEYS (US Detailed) CPT:87642 Reason for Study: SEE CLINICAL HISTORY Clinical History: REASON FOR EXAM: Chronic Renal Failure PERTINENT PATIENT HISTORY: PROVIDER ExtPager# Report Status: Verified Date Reported: MAY 18, 2024 Date Verified: MAY 18, 2024 Acid Pump Operator E-Sig: Report: COMPARISON: none Findings: Grayscale and [...] Staff: DIEGO ASHLEY, Staff Physician Verified by diesel power mechanic for DIEGO ASHLEY /DIEGO MAXWELL [facility] Encounter Notes: All associated encounter notes This section contains the clinical notes associated to the Encounter. Date/Time Encounter Note(s) Provider Source May 08, 2024 01:16 PM LETTERS: LOCAL TITLE: SPECIALTY CONTACT LETTER STANDARD TITLE: LETTERS DATE OF NOTE: MAY 08, 2024@13:16 ENTRY DATE: MAY 08, 2024@13:17:05 AUTHOR: MANJEET POTTER EXP COSIGNER: URGENCY: STATUS: COMPLETED [facility] [address] [place] [address] Mr. CED BRITO JAMES [address] [place], [place] [address] MAY 08, 2024 Dear CED RAMIREZ, We have been unable to contact you by telephone to schedule an appointment in our Optometry clinic. Your health and well-being are important to us. Please call us at or . Select Option #2 and then #3. We look forward to hearing from you soon. Sincerely yours, Optometry [facility] MANJEET POTTER-D [facility]
--- OUTSIDE RECORDS SUMMARY | 2024-05-09 07:27 | XMS_ITS | Encounter Summary ---
Author Name [facility] [place] Organization [facility] [place] Address [address] [place] [id number] Care Team Providers Care Automotive Technician Name Role Phone FAHAD BLOCK Primary Care [...] Name Patient's Relationship to Policy Berg [place] MED[place] PLAN C [place] MED-[place] UPP PLAN C May 26, 2016 [id number] [phone] Samara RAMIREZ OBBY PATIENT [facility] BLUECARD MEDICARE SUPPLEMEN SELVIN [place] CKY INDIV IDUAL Jun 26, 2008 [id number] [phone] Samara RAMIREZ OBBY PATIENT MEDICARE (WNR) MEDICARE (M) PART A Nov 24, [id number] [facility] [phone] Samara RAMIREZ OBBY PATIENT MEDICARE (WNR) MEDICARE (M) PART B Nov 24, 2001 PART B [id number] Samara RAMIREZ OBBY PATIENT MEDICARE (WNR) MEDICARE (M) PART A Nov 24, [id number] [facility] RAMIREZ,B OBBY PATIENT MEDICARE (WNR) MEDICARE (M) PART B Nov 24, [id number] [facility] RAMIREZ,B OBBY PATIENT MEDICARE (WNR) MEDICARE (M) PART A Nov 24, 2001 PART A [id number] RAMIREZ,B OBBY PATIENT MEDICARE (WNR) MEDICARE (M) PART B Nov 24, 2001 PART B [id number] RAMIREZ,B OBBY PATIENT MEDICARE (WNR) MEDICARE (M) PART A Nov 24, 2001 PART A [id number] RAMIREZ,B OBBY PATIENT MEDICARE (WNR) MEDICARE (M) PART B Nov 24, 2001 PART B [id number] RAMIREZ,B OBBY PATIENT Selected Encounter This section includes the information on record at [place] for the Encounter. Date/Time Encounter Type Encounter Description Reason Pro vider Source May 09, 2024 11:27 AM Outpatient Encounter ADMIN PAT ACTIVTIES (MASNONCT) IHE Encounter Template Text not used by [place] Plan of Treatment: Future Appointments (+ 6 months) and Future Tests (+/- 45 days) The Plan of Treatment section includes future care activities for the patient from all [place] treatmentfacilities. This section includes future appointments and future orders which are active, pending or scheduled. Future Appointments This section includes appointments that were scheduled to occur 6 months from the date of the Encounter, up to a maximum of 20 appointments. The data comes from all [place] treatment facilities. Appointment Date/Time Appointment Type Appointme nt Facility Name May 10, 2024 08:00 AM [facility] - NONE [facility] May 17, 2024 11:30 AM AMB[facility]ATORY - NONE [facility] Jul 23, 2024 01:30 PM AMBULATORY - MEDICINE [facility] Lab Results: +/- 30 days of the encounter This section includes the Chemistry and Hematology Lab Results on record with [place] for the patient. Radiology Reports and Pathology Reports are provided separately, in subsequent sections. Lab Results This section contains the Chemistry/Hematology Results that were resulted 30 days before or 30 daysafter the date of the Encounter. Date/Time Source Result Type Result - Unit Interpretation Reference Range Specimen Type Comment May 17, 2024 10:47 AM [facility] WN PHOSPHORUS PLASMA Specimen Type: PLASMA No comment entered. Ordering Provider: FAHAD BLOCK Report Released Date/Time: May 10, 2024 10:41 PM Reporting Lab: [address] [address] Performing Lab: [place] [id number] PHOSPHORUS 5.1 mg/dL H 2.3-4.7 May 17, 2024 10:47 AM [facility] IONIZED CALCIUM BLOOD Specime n Type: BLOOD No comment entered. Ordering Provider: FAHAD BLOCK Report Released Date/Time: May 10, 2024 10:41 PM Reporting Lab: [address] [address] Performing Lab: [place] [id number] IONIZED CALCIUM 1.22 mmol/L 1.15-1.29 May 17, 2024 10:47 AM [facility] PTH INTACT ([place]) PLASMA Spe cimen [...] May 10, 2024 10:41 PM Reporting Lab: [place] [id number] Performing Lab: [address] [address] PTH INTACT ([place]) 105.1 pg/mL H 8.7-77.1 May 10, 2024 08:59 AM [facility] MICROALBUMIN/CREAT RATIO URINE Specimen Type: URINE No comment entered. Ordering Provider: FAHAD BLOCK Report Released Date/Time: May 10, 2024 08:34 AM Reporting Lab: [address] [address] Performing Lab: [address] [address] CREATININE 77.4 mg/dL MICROALBUMIN QUANT 370.8 mg/L H 0.0-30.0 .MICROALBUMIN/CREA RATIO 479.1 ug/mg{creat} May 10, 2024 08:59 AM [facility] URINALYSIS URINE Specimen Type: URINE No comment entered. Ordering Provider: FAHAD BLOCK Report Released Date/Time: May 10, 2024 08:34 AM Reporting Lab: [address] [address] Performing Lab: [address] [address] URINE COLOR Light Yellow Colorless-Yello w APPEARANCE [...] /[LPF] 0-2 May 10, 2024 08:59 AM [facility] DRUG SCREEN EXPANDED IN-HOUSE URINE Specimen [...] May 10, 2024 08:34 AM Reporting Lab: [address] [address] Performing Lab: [address] [address] TETRAHYDROCANNABINOL SCREEN NEG Cuto ff < 50 [...] < 1 May 10, 2024 08:49 AM [facility] CYSTATIN C WITH eGFR ([facility]) PLASMA Specimen Type: PLASMA No comment entered. Ordering Provider: FAHAD BLOCK Report Released Date/Time: May 10, 2024 08:34 AM Reporting Lab: [facility] [address] [facility] [address] Performing Lab: [facility] [address] [facility] [address] .CYSTATIN C ([facility]) 2.77 mg/L H 0.87-1.1 2 .eGFR ([facility]) 18 L >59 May 10, 2024 08:49 AM [facility] B12 VITAMIN PLASMA Specimen Type: PLASM [...] May 10, 2024 08:34 AM Reporting Lab: [address] [address] Performing Lab: [address] [address] B12 VITAMIN >2000 pg/mL H 213-816 May 10, 2024 08:49 AM [facility] 25-OH VITAMIN D SERUM Specime n [...] May 10, 2024 08:34 AM Reporting Lab: [address] [address] Performing Lab: [address] [address] 25-OH VITAMIN D 50.1 ng/mL H 20.0-50.0 May 10, 2024 08:49 AM [facility] TSH PLASMA Specimen Type: PLASM A [...] May 10, 2024 08:34 AM Reporting Lab: [address] [address] Performing Lab: [address] [address] TSH 1.7870 m[IU]/mL 0.3500-4.9400 May 10, 2024 08:49 AM [facility] GLYCOHEMOGLOBIN BLOOD Specimen Type: BLOOD Comment: [facility] guidelines for A1c interpretation: Glycemic control targets are based on Shared Decision Making between clinicians and patients. Criteria used to establish an A1c target recommendation can be found at https://www.ct.gov/qualityandpatientsafety/ and include the use of result accuracy [...] 8.73 and 9.27. Ref: https://ngsp.org/CAPdata.asp. The in-house [employer] D-100 analyzer has a historical CV <= 2%. Contact the laboratory for further performance characteristics of this assay. Ordering Provider: FAHAD BLOCK Report Released Date/Time: May 10, 2024 08:34 AM Reporting Lab: [address] [address] Performing Lab: [place] [id number] GLYCOHEMOGLOBIN 7.5 H 4.4-6.4 May 10, 2024 08:49 AM [facility] CBC/PLT BLOOD Specimen Type: BLOOD No comment entered. Ordering Provider: FAHAD BLOCK Report Released Date/Time: May 10, 2024 08:34 AM Reporting Lab: [address] [address] Performing Lab: [address] [address] WBC 6.3 10*3/uL 5.0-10.0 RBC 5.01 10*6/uL 4.6-6.2 HGB 15.5 g/dL 14.0-18.0 HCT 46.6 42.0-52.0 MCV 93.0 fL 80.0-94.0 MCH 30.9 pg 27.0-31.0 MCHC 33.3 g/dL 32.0-36.0 PLT 204 10*3/uL 150-450 MPV 9.8 fL 9.0-13.1 RDW 15.9 11.0-16.0 NRBC 0.0 0.0-0.0 May 10, 2024 08:49 AM [facility] LIPID PROFILE PLASMA Specimen Type: PLASM [...] of sample is too elevated. Ordering Provider: AFHAD BLOCK Report Released Date/Time: May 10, 2024 08:34 AM Reporting Lab: [address] [address] Performing Lab: [address] [address] CHOLESTEROL 227 mg/dL H 0-199 TRIGLYCERIDE 402 mg/dL H 0-149 HDL CHOLESTEROL 37 mg/dL L 40-69 DIRECT LDL CHOL. 63 mg/dL 0-100 May 10, 2024 08:49 AM [facility] PLASMA Specimen Type: PLASM A Comment: [...] May 10, 2024 08:34 AM Reporting Lab: [facility] [address] [facility] [address] Performing Lab: [facility] [address] [facility] [address] CREATININE 2.77 mg/dL H 0.72-1.25 UREA NITROGEN [...] and tobacco- related health factors from the [place] facility where the Encounter took place. Current Smoking Status This section includes the most current smoking, or tobacco-related health factor, from the [place] facility where the Encounter took place. Date/Time Current Smoking Status Comment Jose Luis [email or web address] Aug 07, 2020 03:30 PM VA-TOBACCO USE 30 YEARS OR MORE [facility] Tobacco Use History This section includes a history of the smoking, or tobacco-related health factors, that were collected on or before the date of the Encounter. The data comes from the [place] facility where the Encounter took place. Date/Time Smoking Status/Tobacco Use Comment F acility Aug 07, 2020 03:30 PM VA-TOBACCO USE ADVICE [facility] Aug 07, 2020 03:30 PM VA-TOBACCO USE BEVELER NO [facility] Aug 07, 2020 03:30 PM VA-TOBACCO USE MED NO [facility] Aug 07, 2020 03:30 PM VA-TOBACCO USE WI 30 MIN OF WAKEUP [facility] Aug 07, 2020 03:30 PM VA-TOBACCO USER EVERY DAY [facility] Sep 07, 2015 02:27 PM V9 CURRENT TOBACCO USER [facility] Sep 07, 2015 02:27 PM V9 TOBACCO OFFERED [facility] Sep 07, 2015 02:27 PM V9 TOBACCO USE-DEC LINED MEDS [facility] Dec 02, 2008 06:27 PM TOBACCO OFFERRED P T MEDS (PROVIDER) [facility] Dec 02, 2008 06:27 PM V9 CURRENT TOBACCO USER [facility] Dec 02, 2008 06:27 PM V9 TOBACCO OFFERED [facility] Sep 05, 2007 07:04 PM TOBACCO OFFERRED P T MEDS (PROVIDER) [facility] Sep 05, 2007 07:04 PM V9 CURRENT TOBACCO USER [facility] Sep 05, 2007 07:04 PM V9 TOBACCO OFFERED [facility] Aug 10, 2006 06:03 PM TOBACCO OFFERRED P T MEDS (PROVIDER) [facility] Aug 10, 2006 06:03 PM V9 CURRENT TOBACCO USER [facility] Aug 10, 2006 06:03 PM V9 TOBACCO OFFERED [facility] Feb 22, 2006 09:55 PM HF V9 SECOND TOBAC CO BEVELER occ. [facility] Aug 16, 2005 08:17 AM HF V9 CURRENT SMOKER SMOKES UP TO 2 PACKS/WK [facility] Aug 09, 2004 12:56 PM HF V9 CURRENT NON-SMOKER about a week ago [facility] Jul 02, 2003 07:59 AM HF V9 CURRENT NON-SMOKER 7yrs ago [facility] Apr 26, 2002 11:54 AM HF V9 CURRENT NON-SMOKER quit about 5 yrs ago. [facility] Advance Directives: All historical and current Section Date Range: From patient's date of to the date document was created. This section includes ALL of a patient's completed or amended [place] Advance and Rescinded Directives. The entries below indicate that a directive exists for the patient, but an actual copy is not included with this document. The data comes from all [place] facilities. Date Advance Directives Provider Source Oct 17, 2011 ADVANCE DIRECTIVE DISCUSSION AMY VÁSQUEZ [facility] Aug 11, 2010 ADVANCE DIRECTIVE DISCUSSION AMY VÁSQUEZ [facility] Jun 04, 2009 ADVANCE DIRECTIVE DISCUSSION AMY VÁSQUEZAnil Salazar [facility] Radiology Reports: +/- 30 days of [...] the Encounter. The data comes from all [place] treatment facilities. Date/Time Radiology Report Provider Source May 17, 2024 10:53 AM U/S KIDNEYS: CED RAMIREZ [id number] [phone] M Exm Date: MAY 17, 2024@10:53 Req Phys: FAHAD BLOCK Pat Loc: DICK PACT ALPHA 1-3 (Req'g Loc) Img Loc: ULTRASOUND Service: [place] [address] (Case [id number] COMPLETE)U/S KIDNEYS (US Detailed) CPT:92517 Reason for Study: SEE CLINICAL HISTORY Clinical History: REASON FOR EXAM: Chronic Renal Failure PERTINENT PATIENT HISTORY: PROVIDER ExtPager# Report Status: Verified Date Reported: MAY 18, 2024 Date Verified: MAY 18, 2024 Compliance Paralegal E-Sig: Report: COMPARISON: none Findings: Grayscale and [...] Staff: DIEGO ASHLEY, Staff Physician Verified by project control analyst for DIEGO ASHLEY /DIEGO MAXWELL [facility] Encounter Notes: All associated encounter notes This section contains the clinical notes associated to the Encounter. Date/Time Encounter Note(s) Provider Source May 09, 2024 11:27 AM TELEPHONE ENCOUNTE R NOTE: LOCAL TITLE: Pc Pact Pre-clinic Telephone Reminder STANDARD TITLE: TELEPHONE ENCOUNTER NOTE DATE OF NOTE: MAY 09, 2024@11:27 ENTRY DATE: MAY 09, 2024@11:27:18 AUTHOR: OPAL LANE EXP COSIGNER: URGENCY: STATUS: COMPLETED Called as a reminder of upcoming appointment: DICK PACT ALPHA 1-3 May 10, 2024@08:00 [facility] Also to confirm building [address] on the 3rd floor to better assist of location for appointment. Spoke w/[place] and confirmed above listed appt, date/time/location. /echo/ [address] [facility] Signed: 05/09/2024 11:[address]
--- OUTSIDE RECORDS SUMMARY | 2024-05-10 04:00 | XMS_ITS | Encounter Summary ---
Author Name [facility] [place] Organization [facility] [place] Address [address] [place] [id number] Care Team Providers Care Associate Software Developer Name Role Phone FAHAD BLOCK Primary Care [...] Berg's Name Patient's Relationship to Policy Berg [facility] MEDIGAP PLAN C [place] MED-S UPP PLAN C May 26, 2016 [id number] [phone] Samara RAMIREZ OBBY PATIENT [facility] BLUECARD MEDICARE SUPPLEMEN SELVIN CHASTITYU CKY INDIV IDUAL Jun 26, 2008 [id number] [phone] Samara RAMIREZ OBBY PATIENT MEDICARE (WNR) MEDICARE (M) PART A Nov 24, 2001 PART A [id number] [facility] Samara RAMIREZ OBBY PATIENT MEDICARE (WNR) MEDICARE (M) PART B Nov 24, 2001 PART B [id number] [facility] [phone] Samara RAMIREZ OBBY PATIENT MEDICARE (WNR) MEDICARE (M) PART A Nov 24, 2001 PART A [id number] [facility] RAMIREZ,B OBBY PATIENT MEDICARE (WNR) MEDICARE (M) PART B Nov 24, 2001 PART B [id number] [facility] JAMES,B OBBY PATIENT MEDICARE (WNR) MEDICARE (M) PART B Nov 24, 2001 PART B [id number] RAMIREZ,B OBBY PATIENT MEDICARE (WNR) MEDICARE (M) PART A Nov 24, 2001 PART A [id number] RAMIREZ,B OBBY PATIENT MEDICARE (WNR) MEDICARE (M) PART A Nov 24, 2001 PART A [id number] JAMES,B OBBY PATIENT MEDICARE (WNR) MEDICARE (M) PART B Nov 24, 2001 PART B [id number] Samara RAMIREZ OBBY PATIENT Selected Encounter This section includes the information on record at [place] for the Encounter. Date/Time Encounter Type Encounter Description Reason Provider Source May 10, 2024 08:00 AM OFFICE O/P EST MOD 30 MIN PRIMARY CARE/MEDICINE ICD-10-CM M54.59 Other low back pain FAHAD BLOCK Anil Encounter Template Text not used by [place] Assessments - Encounter Diagnoses This section includes the primary and secondary diagnoses documented for the Encounter. 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 [facility] May 10, 2024 09:13 PM SECONDARY Chronic kidney disease, stage 3b [facility] May 10, 2024 09:13 PM SECONDARY Chronic obstructive pulmonary disease, unspecified [facility] May 10, 2024 09:13 PM SECONDARY Gastro-esophageal reflux disease without esophagitis [facility] May 10, 2024 09:13 PM SECONDARY Hyperlipidemia, unspecified [facility] May 10, 2024 09:13 PM SECONDARY Other cervical disc degeneration, unsp cervical region KOUSA,KITTA [facility] May 10, 2024 09:13 PM SECONDARY Sensorineural hearing loss, bilateral FAHAD BLOCK [facility] May 10, 2024 09:13 PM SECONDARY Tobacco use FAHAD BLOCK [facility] May 10, 2024 09:13 PM SECONDARY Type 2 diabetes mellitus with unspecified complications FAHAD BLOCK [facility] Plan of Treatment: Future Appointments (+ 6 months) and Future Tests (+/- 45 days) The Plan of Treatment section includes future care activities for the patient from all [place] treatmentfacilities. This section includes future appointments and future orders which are active, pending or scheduled. Future Appointments This section includes appointments that were scheduled to occur 6 months from the date of the Encounter, up to a maximum of 20 appointments. The data comes from all [place] treatment facilities. Appointment Date/Time Appointment Type Appointme nt Facility Name May 17, 2024 11:30 AM AMBULATORY - NONE [facility] Jul 23, 2024 01:30 PM AMBULATORY - MEDICINE [facility] Lab Results: +/- 30 days of the encounter This section includes the Chemistry and Hematology Lab Results on record with [place] for the patient. Radiology Reports and Pathology Reports are provided separately, in subsequent sections. Lab Results This section contains the Chemistry/Hematology Results that were resulted 30 days before or 30 daysafter the date of the Encounter. Date/Time Source Result Type Result - Unit Interpretation Reference Range Specimen Type Comment May 17, 2024 10:47 AM [facility]N PHOSPHORUS PLASMA Specimen Type: PLASMA No comment entered. Ordering Provider: FAHAD BLOCK Report Released Date/Time: May 10, 2024 10:41 PM Reporting Lab: [address] [address] Performing Lab: [address] [address] PHOSPHORUS 5.1 mg/dL H 2.3-4.7 May 17, 2024 10:47 AM [facility] IONIZED CALCIUM BLOOD Specime n Type: BLOOD No comment entered. Ordering Provider: FAHAD BLOCK Report Released Date/Time: May 10, 2024 10:41 PM Reporting Lab: [address] [address] Performing Lab: [address] [address] IONIZED CALCIUM 1.22 mmol/L 1.15-1.29 May 17, 2024 10:47 AM [facility] PTH INTACT ([place]) PLASMA Spe cimen Type: [...] May 10, 2024 10:41 PM Reporting Lab: [place] [id number] Performing Lab: [place] [id number] PTH INTACT ([place]) 105.1 pg/mL H 8.7-77.1 May 10, 2024 08:59 AM [facility] MICROALBUMIN/CREAT RATIO URINE Specimen Type: URINE No comment entered. Ordering Provider: FAHAD BLOCK Report Released Date/Time: May 10, 2024 08:34 AM Reporting Lab: [place] [id number] Performing Lab: [place] [id number] CREATININE 77.4 mg/dL MICROALBUMIN QUANT 370.8 mg/L H 0.0-30.0 .MICROALBUMIN/CREA RATIO 479.1 ug/mg{creat} May 10, 2024 08:59 AM [facility] URINALYSIS URINE Specimen Type: URINE No comment entered. Ordering Provider: FAHAD BLOCK Report Released Date/Time: May 10, 2024 08:34 AM Reporting Lab: [place] [phone] Performing Lab: [place] [phone] URINE COLOR Light Yellow Colorless-Yello w APPEARANCE [...] /[LPF] 0-2 May 10, 2024 08:59 AM [facility] DRUG SCREEN EXPANDED IN-HOUSE URINE [...] May 10, 2024 08:34 AM Reporting Lab: [address] [address] Performing Lab: [place] [phone] TETRAHYDROCANNABINOL SCREEN NEG Cuto ff < 50 [...] < 1 May 10, 2024 08:49 AM [facility] CYSTATIN C WITH eGFR ([facility]) PLASMA Specimen Type: PLASMA No comment entered. Ordering Provider: FAHAD BLOCK Report Released Date/Time: May 10, 2024 08:34 AM Reporting Lab: [address] [address] Performing Lab: [address] [place] [address] .CYSTATIN C ([facility]) 2.77 mg/L H 0.87-1.1 2 .eGFR ([facility]) 18 L >59 May 10, 2024 08:49 AM [facility] B12 VITAMIN PLASMA Specimen Type: [...] May 10, 2024 08:34 AM Reporting Lab: [address] [address] Performing Lab: [address] [address] B12 VITAMIN >2000 pg/mL H 213-816 May 10, 2024 08:49 AM [facility] 25-OH VITAMIN D SERUM Specime n Type: [...] May 10, 2024 08:34 AM Reporting Lab: [address] [address] Performing Lab: [address] [address] 25-OH VITAMIN D 50.1 ng/mL H 20.0-50.0 May 10, 2024 08:49 AM [facility] TSH PLASMA Specimen Type: [...] May 10, 2024 08:34 AM Reporting Lab: [address] [address] Performing Lab: [address] [address] TSH 1.7870 m[IU]/mL 0.3500-4.9400 May 10, 2024 08:49 AM [facility] GLYCOHEMOGLOBIN BLOOD Specimen Type: BLOOD Comment: [facility] guidelines for A1c interpretation: Glycemic control targets are based on Shared Decision Making between clinicians and patients. Criteria used to establish an A1c target recommendation can be found at https://www.me.gov/qualityandpatientsafety/ and include the use of result accuracy [...] 8.73 and 9.27. Ref: https://ngsp.org/CAPdata.asp. The in-house [employer]-Rescue[employer] D-100 analyzer has a historical CV <= 2%. Contact the laboratory for further performance characteristics of this assay. Ordering Provider: FAHAD BLOCK Report Released Date/Time: May 10, 2024 08:34 AM Reporting Lab: [facility] [address] [facility] [address] Performing Lab: [facility] [address] [place] [address] GLYCOHEMOGLOBIN 7.5 H 4.4-6.4 May 10, 2024 08:49 AM [facility] LIPID PROFILE PLASMA Specimen Type: PLASM A [...] May 10, 2024 08:34 AM Reporting Lab: [address] [address] Performing Lab: [place] [phone] CHOLESTEROL 227 mg/dL H 0-199 TRIGLYCERIDE 402 mg/dL H 0-149 HDL CHOLESTEROL 37 mg/dL L 40-69 DIRECT LDL CHOL. 63 mg/dL 0-100 May 10, 2024 08:49 AM [facility] CBC/PLT BLOOD Specimen Type: BLOOD No comment entered. Ordering Provider: FAHAD BLOCK Report Released Date/Time: May 10, 2024 08:34 AM Reporting Lab: [address] [address] Performing Lab: [place] [phone] WBC 6.3 10*3/uL 5.0-10.0 RBC 5.01 10*6/uL 4.6-6.2 HGB 15.5 g/dL 14.0-18.0 HCT 46.6 42.0-52.0 MCV 93.0 fL 80.0-94.0 MCH 30.9 pg 27.0-31.0 MCHC 33.3 g/dL 32.0-36.0 PLT 204 10*3/uL 150-450 MPV 9.8 fL 9.0-13.1 RDW 15.9 11.0-16.0 NRBC 0.0 0.0-0.0 May 10, 2024 08:49 AM [facility] PANEL 5 PLASMA Specimen Type: PLASM [...] May 10, 2024 08:34 AM Reporting Lab: [address] [address] Performing Lab: [address] [address] CREATININE 2.77 mg/dL H 0.72-1.25 UREA NITROGEN [...] PHOS 100 U/L 40-150 eGFR (CKD-EPI) 21 Vital Signs: All taken on the encounter date This section contains inpatient and outpatient Vital Signs collected on the date of the Encounter. Date/Time Temperature Pulse Blood Pressure Respiratory Rate SP02 Pain Height Weight Body Mass Index Source May 10, 2024 07:54 AM 98.1 99 132/75 99 0 71 203 28 [place] [facility] Social History: Smoking Status (Most current) and Tobacco Use (All prior to encounter date) This section includes the most current, and the historical, smoking and tobacco- related health factors from the [place] facility where the Encounter took place. Current Smoking Status This section includes the most current smoking, or tobacco-related health factor, from the [place] facility where the Encounter took place. Date/Time Current Smoking Status Comment Facil ity May 10, 2024 08:00 AM VA-TOBACCO USER EVERY DAY [facility] Tobacco Use History This section includes a history of the smoking, or tobacco-related health factors, that were collected on or before the date of the Encounter. The data comes from the [place] facility where the Encounter took place. Date/Time Smoking Status/Tobacco Use Comment F acility May 10, 2024 08:00 AM VA-TOBACCO USE ADVICE [facility] May 10, 2024 08:00 AM VA-TOBACCO USE FLIGHT SECURITY SPECIALIST NO [facility] May 10, 2024 08:00 AM VA-TOBACCO USE MED NO [facility] May 10, 2024 08:00 AM VA-TOBACCO USE WI 30 MIN OF WAKEUP [facility] May 10, 2024 08:00 AM VA-TOBACCO USER EVERY DAY [facility] Jun 02, 2023 08:00 AM VA-TOBACCO USE 30 YEARS OR MORE [facility] Jun 02, 2023 08:00 AM VA-TOBACCO USE ADVICE [facility] Jun 02, 2023 08:00 AM VA-TOBACCO USE FLIGHT SECURITY SPECIALIST NO [facility] Jun 02, 2023 08:00 AM VA-TOBACCO USE MED NO [facility] Jun 02, 2023 08:00 AM VA-TOBACCO USE WI 30 MIN OF WAKEUP [facility] Jun 02, 2023 08:00 AM VA-TOBACCO USER EVERY DAY [facility] Jun 29, 2022 08:00 AM VA-TOBACCO USE 30 YEARS OR MORE [facility] Jun 29, 2022 08:00 AM VA-TOBACCO USE ADVICE [facility] Jun 29, 2022 08:00 AM VA-TOBACCO USE FLIGHT SECURITY SPECIALIST NO [facility] Jun 29, 2022 08:00 AM VA-TOBACCO USE MED NO [facility] Jun 29, 2022 08:00 AM VA-TOBACCO USE WI 30 MIN OF WAKEUP [facility] Jun 29, 2022 08:00 AM VA-TOBACCO USER EVERY DAY [facility] Jul 13, 2021 01:30 PM VA-TOBACCO USE 30 YEARS OR MORE [facility] Jul 13, 2021 01:30 PM VA-TOBACCO USE ADVICE [facility] Jul 13, 2021 01:30 PM VA-TOBACCO USE FLIGHT SECURITY SPECIALIST NO [facility] Jul 13, 2021 01:30 PM VA-TOBACCO USE MED NO [facility] Jul 13, 2021 01:30 PM VA-TOBACCO USE WI 30 MIN OF WAKEUP [facility] Jul 13, 2021 01:30 PM VA-TOBACCO USER EVERY DAY [facility] Dec 31, 2018 08:30 AM VA-TOBACCO USE 30 YEARS OR MORE [facility] Dec 31, 2018 08:30 AM VA-TOBACCO USE ADVICE [facility] Dec 31, 2018 08:30 AM VA-TOBACCO USE FLIGHT SECURITY SPECIALIST NO [facility] Dec 31, 2018 08:30 AM VA-TOBACCO USE MED NO [facility] Dec 31, 2018 08:30 AM VA-TOBACCO USE WI 30 MIN OF WAKEUP [facility] Dec 31, 2018 08:30 AM VA-TOBACCO USER EVERY DAY [facility] Jan 08, 2018 09:44 AM V9 CURRENT TOBACCO USER [facility] Jan 08, 2018 09:44 AM V9 TOBACCO OFFERED [facility] Jan 08, 2018 09:44 AM V9 TOBACCO USE-DECLINED MEDS [facility] Dec 15, 2016 09:06 AM V9 LIFETIME NON-USER OF TOBACCO [facility] Nov 27, 2014 08:59 AM V9 CURRENT TOBACCO USER [facility] Nov 27, 2014 08:59 AM V9 TOBACCO OFFERED [facility] Nov 27, 2014 08:59 AM V9 TOBACCO USE-DECLINED MEDS [facility] Oct 16, 2013 08:04 AM TOBACCO OFFERRED P T MEDS (PROVIDER) [facility] Oct 16, 2013 08:04 AM V9 CURRENT TOBACCO USER [facility] Oct 16, 2013 08:04 AM V9 TOBACCO OFFERED [facility] Jun 13, 2012 08:13 AM TOBACCO OFFERRED P T MEDS (PROVIDER) [facility] Jun 13, 2012 08:13 AM V9 CURRENT TOBACCO USER [facility] Jun 13, 2012 08:13 AM V9 TOBACCO OFFERED [facility] Apr 06, 2011 07:00 AM TOBACCO OFFERRED P T MEDS (PROVIDER) [facility] Apr 06, 2011 07:00 AM V9 CURRENT TOBACCO USER [facility] Apr 06, 2011 07:00 AM V9 TOBACCO OFFERED [facility] Jan 06, 2010 06:58 PM TOBACCO OFFERRED P T MEDS (PROVIDER) [facility] Jan 06, 2010 06:58 PM V9 CURRENT TOBACCO USER [facility] Jan 06, 2010 06:58 PM V9 TOBACCO OFFERED [facility] Advance Directives: All historical and current Section Date Range: From patient's date of to the date document was created. This section includes ALL of a patient's completed or amended [place] Advance and Rescinded Directives. The entries below indicate that a directive exists for the patient, but an actual copy is not included with this document. The data comes from all [place] facilities. Date Advance Directives Provider Source Oct 17, 2011 ADVANCE DIRECTIVE DISCUSSION AMY VÁSQUEZ [facility] Aug 11, 2010 ADVANCE DIRECTIVE DISCUSSION AMY VÁSQUEZ [facility] Jun 04, 2009 ADVANCE DIRECTIVE DISCUSSION AMY VÁSQUEZ Martin [facility] Radiology Reports: +/- 30 days of [...] the Encounter. The data comes from all [place] treatment facilities. Date/Time Radiology Report Provider Source May 17, 2024 10:53 AM U/S KIDNEYS: CED RAMIREZ [id number] [phone] M Exm Date: MAY 17, 2024@10:53 Req Phys: FAHAD BLOCK Pat Loc: DICK PACT ALPHA 1-3 (Req'g Loc) Img Loc: ULTRASOUND Service: [place] [address] (Case [id number] COMPLETE)U/S KIDNEYS (US Detailed) CPT:47153 Reason for Study: SEE CLINICAL HISTORY Clinical History: REASON FOR EXAM: Chronic Renal Failure PERTINENT PATIENT HISTORY: PROVIDER ExtPager# Report Status: Verified Date Reported: MAY 18, 2024 Date Verified: MAY 18, 2024 It Business Systems Analyst E-Sig: Report: COMPARISON: none Findings: Grayscale and [...] Staff: DIEGO ASHLEY, Staff Physician Verified by machine stuffer for DIEGO ASHLEY /DIEGO MAXWELL [facility] Encounter Notes: All associated encounter notes This section contains the clinical notes associated to the Encounter. Date/Time Encounter Note(s) Provider Source May 27, 2024 11:13 AM ADDENDUM: LOCAL TITLE: Addendum STANDARD TITLE: ADDENDUM DATE OF NOTE: MAY 27, 2024@11:13:35 ENTRY DATE: MAY 27, 2024@11:13:36 AUTHOR: DAWN MERCADO COSIGNER: URGENCY: STATUS: COMPLETED Pt returning your call thank you. 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 HPI/PROBLEM LIST: Patient is a 88 year old MALE here today to establish treatment of active/chronic medical problems, and F/U test results. Patient denies any recent Hospitalizations, ER visits or surgeries in last 90 days. NON-SD Provider- -Signals Collector/Analyst Dr Jl Frederick [facility] Cardiology [facility]. - Primary Care Dr is Dr Raul Capone in [place]. NON-VA Pharmacy- NA - Chronic obstructive lung disease/tobacco use- still smokes < ppd . Smoked ppd since age 19 , quit in between x 7 years. Brathing is ok using: FLUTICAS 250/SALMETEROL 50 INHL DISK 60 INHALE 1 INHALATION BY MOUTH TWICE A DAY FOR BREATHING. - Diabetes mellitus- controlled per 06/02/2024 A1c 06/02/2023 08:42 BLOOD !! GLYCOHEMOGLOBIN 6.7 H % 4.4 - 6.4 06/02/2023 08:50 URINE MICROALBUMIN ELIZABETH 652.3 H mg/L 0.0 - 30.0 Takes no RXs for his diabetic nephropathy- The carvidolol may help some. Is taking: GLIPIZIDE 5MG TAB TAKE ONE TABLET BY MOUTH EVERY DAY EMPAGLIFLOZIN 25MG TAB TAKE ONE TABLET BY MOUTH EVERY MORNING - Hyperlipidemia- uncontrolled per 06/02/2024 labs. Is taking: ROSUVASTATIN CA 20MG TAB TAKE ONE-HALF TABLET BY MOUTH AT BEDTIME - Chronic Kidney Disease, Unspecified 06/02/2023 08:42 PLASMA!! CREATININE 2.19 H mg/dL 0.72 -.25 does not F/U renal- order labs and renal ultrasound then consult renal. - Coronary artery disease/-PPM/- heart cath x 7 times with several stents to unknown coronaries- Denies chest pain, palpitation, syncope, or leg edema. F/U [facility] Cardiology- Dr Frederick at [facility]. Is taking: ROSUVASTATIN CA 20MG TAB TAKE ONE-HALF TABLET BY MOUTH AT BEDTIME Non-VA ASPIRIN 81MG EC TAB 81MG MOUTH EVERY DAY . Still smokes. - Gastroesophageal reflux disease- Denies dysphagia, weight loss or melena. Controlled taking: PANTOPRAZOLE NA 40MG EC TAB TAKE ONE TABLET BY MOUTH EVERY DAY. - Low back pain -back surgery 25 years ago due to a ruptured disc . No radation - No pt, chiropractor, or injections. stable does not bother him much these day. 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 Fairly controlled taking HYDROCODONE 7.5/ACETAMINOPHEN 325MG TAB TAKE 1 TABLET BY MOUTH THREE TIMES A DAY - Hearing loss - dose not wear his bilateral hearing aids all the time. - Peripheral Vascular Disease- No stenting. stable. Is taking ROSUVASTATIN CA 20MG TAB TAKE ONE-HALF TABLET BY MOUTH AT BEDTIME Non-VA ASPIRIN 81MG EC TAB 81MG MOUTH EVERY DAY. still smokes at < ppd. - Hypertension - home bp is good . BP in the clinic today is 132/75. 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 - Constipation- controlled takig : Non-VA POLYETHYLENE GLYCOL 3350 ORAL PWDR 1 HEAPING TABLESPOONFUL IN LIQUID MOUTH DAILY. Denies side effects. HEALTH CARE MAINTENANCE: .SCREENING- - LDCT Screening for Lung Cancer: Not indicated due to age group. - AAA Screening : h/o AAA , s/p repair by [facility] cardiology [facility]. - Screening for colon cancer: Colonoscope x2 lifel time ;Had on a few years ago outside the [place]. - PSA:12.409 ng/mL ( 06/02/23 ) H - Screening for HIV:No records found. - Screening for HCV:No records found. . IM - Immunizations ADMINISTERED COVID-19 ([employer]), MRNA, LNP-S, * 1 06/29/2022 [place]* COVID-19 ([employer]), MRNA, LNP-S, * 3 03/10/2021 [place] * COVID-19 ([employer]), MRNA, LNP-S, * 2 08/01/2020 [place]* COVID-19 ([employer]), MRNA, LNP-S, * 1 07/11/2020 [place]* COVID-19 ([employer]), MRNA, LNP-S, * 4 11/26/2021 [place]* INFLUENZA, HIGH-DOSE, TRIVALENT,* 2 05/04/2024 [place] [facility] PNEUMOCOCCAL, UNSPECIFIED FORMUL* No Site TD(ADULT) UNSPECIFIED FORMULATION 06/26/2009 No Site TD(ADULT) UNSPECIFIED FORMULATION No Site TD(ADULT) UNSPECIFIED FORMULATION Hosptial * TD(ADULT) UNSPECIFIED FORMULATION No Site TDAP 1 09/09/2020 [place] [facility] REFUSED ======= COVID-19 ([employer]), MRNA, LNP-S,* 05/10/2024 [place]* PNEUMOCOCCAL CONJUGATE, UNSPECIF* 06/29/2022 [place]* ZOSTER RECOMBINANT 06/29/2022 [place]* ST - Skin Tests No data available: No Hep A immunization history found. No Hep B immunization history found. Active problems - Computerized Problem List is [...] ischemic heart disease 18. Hypertension (SNOMED CT [id number]) 19. Other and unspecified hyperlipidemia 20. Aneurysm, Aorta, Abdominal 4.5CM2 02/25 List of active problems are reviewed with patient and updated. SURGICAL HISTORY: 10/05/2023 LEFT EYE EXTRACAPSULAR CATARACT (COMPLETED) EXTRACTION WITH POSTERIOR CHAMBER INTRAOCULAR LENS IMPLANT 08/10/2023 RIGHT EYE EXTRACAPSULAR CATARACT (COMPLETED) EXTRACTION WITH POSTERIOR CHAMBER INTRAOCULAR LENS IMPLANT L-spine surgery L4-L5 disectomy 25 years ago - Neri Reyes- affilitaed by now. FAMILY HISTORY Father- 75 yo , had lymph node cancer Mother- 85 yo, had :heart condition . Siblings- 3 brothers, 2 . Children- 2 daughters and 2 sons. 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 MARITAL STATUS - . lives with daughter TOBACCO: smokes 1/2ppd ALCOHOL: None ILLICIT DRUGS: Denies ROS: A 10 point ROS was completed with patient and is negative with exception of what was noted above in History of Present Illness and Past Medical History sections. DS - Disabilities Eligibility: NSC VERIFIED MEDICATIONS: Active and Recently Outpatient Medications (including Supplies): Active Outpatient Medications Status 1) AMLODIPINE BESYLATE 10MG TAB TAKE ONE TABLET BY MOUTH ACTIVE DAILY FOR BLOOD PRESSURE/HEART - DO NOT DRINK GRAPEFRUIT JUICE WHILE ON THIS DRUG 2) CARVEDILOL 25MG TAB TAKE ONE-HALF TABLET BY MOUTH ACTIVE TWICE A DAY FOR HEART 3) CHOLECALCIF 25MCG (D3-1,000UNIT) TAB TAKE ONE TABLET ACTIVE BY MOUTH DAILY FOR VITAMIN D SUPPLEMENT 4) EMPAGLIFLOZIN 25MG TAB TAKE ONE TABLET BY MOUTH EVERY ACTIVE MORNING FOR BLOOD SUGAR 5) FLUTICAS 250/SALMETEROL 50 INHL DISK 60 INHALE 1 ACTIVE INHALATION BY MOUTH TWICE A DAY FOR BREATHING -RINSE MOUTH AND SPIT AFTER EACH USE 6) GLIPIZIDE 5MG TAB TAKE ONE TABLET BY MOUTH EVERY DAY ACTIVE FOR DIABETES 7) HYDROCODONE 7.5/ACETAMINOPHEN 325MG TAB TAKE 1 TABLET ACTIVE BY MOUTH THREE TIMES A DAY FOR PAIN 8) ISOSORBIDE MONONITRATE 30MG SA TAB TAKE ONE TABLET BY ACTIVE MOUTH DAILY FOR HEART 9) PANTOPRAZOLE NA 40MG EC TAB TAKE ONE TABLET BY MOUTH ACTIVE EVERY DAY 30 MINUTES BEFORE A MEAL FOR STOMACH. TAKE ON AN EMPTY STOMACH. 10) ROSUVASTATIN CA 20MG TAB TAKE ONE-HALF TABLET BY ACTIVE MOUTH AT BEDTIME FOR CHOLESTEROL Inactive Outpatient Medications Status 1) DEXTRAN 70/GLYCER 0.2%/HYPROMEL 0.3% OPH PUT 1 DROP IN BOTH EYES TWICE A DAY FOR DRY EYES 2) HYDROCODONE 7.5/ACETAMINOPHEN 325MG TAB TAKE 1 TABLET BY MOUTH THREE TIMES A DAY FOR PAIN Active Non-VA Medications Status 1) Non-VA ASCORBIC ACID 500MG TAB 1000MG MOUTH DAILY ACTIVE 2) Non-VA ASPIRIN 81MG EC TAB 81MG MOUTH EVERY DAY ACTIVE 3) Non-VA FISH OIL 1000MG (500MG DHA/EPA) CAP 2000MG ACTIVE MOUTH TWICE A DAY 4) Non-VA MULTIVITAMIN/MINERALS THERAPEUT CAP/TAB 1 ACTIVE TABLET MOUTH DAILY 5) Non-VA NIACIN (SLO-NIACIN) 500MG TAB,SA 1000MG MOUTH ACTIVE AT BEDTIME 6) Non-VA POLYETHYLENE GLYCOL 3350 ORAL PWDR 1 HEAPING ACTIVE TABLESPOONFUL IN LIQUID MOUTH DAILY 7) Non-VA QUERCETIN CAP/TAB 1 CAP/TAB MOUTH DAILY ACTIVE 8) Non-VA ZINC (FROM SULFATE) CAP,ORAL 25MG MOUTH EVERY ACTIVE EVENING 20 Total Medications ALLERGIES: ATORVASTATIN, CLOPIDOGREL, PENICILLIN PHYSICAL EXAM: VITAL SIGNS Measurement DT TEMP PULSE RESP BP HT WT F(C) IN(CM) LB(KG)[BMI] ---- ----- ---- -- ------ 05/10/2024 07:54 98.1(36.7) 99 132/75 71.0(180) 203(92.1)[28*] Measurement DT CVP POx CG CMH20(MMHG) (L/MIN)(%) IN(CM) ------ 05/10/2024 07:54 99 Measurement DT Pain ---- 05/10/2024 07:54 0 MOBILITY: ambulating WITHOUT assistive device. General: Well-developed , well-nourished MALE in no acute distress. HEENT: Atraumatic, Normocephalic, no icterus. Nose is patent. Moist mucous membranes. No oral lesions. Neck- Supple, could not appreciate JVD, carotid bruit,thyromegaly, or lymphadenopathy. Heart: RRR, Normal S1 and S2, no S4, no M/G/R. Lungs: Clear to auscultation, no rales, no wheezes, no rhonchi Abdomen: Nontender, nondistended, normal bowel sounds Extremities: No edema. normal pulses Musculoskeletal: No joint swelling, erythema or warmth. Neurologic: Alert and oriented times 3, no new focal neurological deficits. Skin: Warm and dry, no new lesions. PSYCH: Appropriate mood and behavior. Interacting appropriately. IMAGES: No recent studies. LABS: 06/02/2023 08:42 BLOOD !! GLYCOHEMOGLOBIN 6.7 H % 4.4 - 6.4 06/29/2022 08:43 BLOOD !! GLYCOHEMOGLOBIN 7.0 H % 4.4 - 6.4 07/13/2021 14:11 BLOOD !! GLYCOHEMOGLOBIN 7.2 H % 4.4 - 6.4 12/31/2018 09:13 BLOOD !! GLYCOHEMOGLOBIN 6.8 H % 4.4 - 6.4 06/02/2023 08:50 URINE MICROALBUMIN ELIZABETH 652.3 H mg/L 0.0 - 30.0 06/02/2023 08:42 PLASMA!! CHOLESTEROL 219 H mg/dL 0 - 199 06/02/2023 08:42 PLASMA!! TRIGLYCERIDE 324 H mg/dL 0 - 149 06/02/2023 08:42 PLASMA!! HDL CHOLESTEROL 34 L mg/dL 40 - 69 06/02/2023 08:42 PLASMA!! DIRECT LDL CHOL. 74 mg/dL 0 - 100 PANEL 2 Zehra. date TOT PRO ALBUMIN SGOT SGPT Z ALK PHZ DIRECTZ TOTAL 06/02/23 08:42 7.9 5.0 89 0.9 PSA:12.409 ng/mL H (06/02/2023 08:42) URINALYSIS Zehra. date Z SPECIFZ URINE Z URINE Z URINE Z URINE Z URINE Z URINE 06/02/23 08:50 1.018 150 H Light Y Clear 5.5 70 H Negativ URINALYSIS Zehra. date Z URINE Z URINE Z URINE Z URINE Z LEUK. 06/02/23 08:50 Negativ Negativ Negativ Normal Negativ 06/02/2023 08:42 BLOOD WBC 7.2 K/cmm 5.0 - 10.0 06/02/2023 08:42 BLOOD RBC 4.83 M/cmm 4.6 - 6.2 06/02/2023 08:42 BLOOD HGB 14.8 g/dL 14.0 - 18.0 06/02/2023 08:42 BLOOD HCT 44.8 % 42.0 - 52.0 06/02/2023 08:42 BLOOD MCV 92.8 fL 80.0 - 94.0 06/02/2023 08:42 BLOOD MCH 30.6 pg 27.0 - 31.0 06/02/2023 08:42 BLOOD MCHC 33.0 g/dL 32.0 - 36.0 06/02/2023 08:42 BLOOD PLT 146 L K/cmm 150 - 450 06/02/2023 08:42 BLOOD MPV 9.7 fL 9.0 - 13.1 06/02/2023 08:42 BLOOD RDW 15.5 % 11.0 - 16.0 06/02/2023 08:42 BLOOD NRBC 0.0 % 0.0 - 0.0 06/02/2023 08:50 URINE CREATININE 126.2 mg/dL 06/02/2023 08:42 PLASMA!! UREA NITROGEN 30 H mg/dL 9 - 06/02/2023 08:42 PLASMA!! eGFR (CKD-EPI) 29 SEE EVAL 06/02/2023 08:42 PLASMA!! GLUCOSE 151 H mg/dL 74 - 100 06/02/2023 08:42 PLASMA!! SODIUM 139 mmol/L 136 - 145 06/02/2023 08:42 PLASMA!! POTASSIUM 4.8 mmol/L 3.5 - 5.1 06/02/2023 08:42 PLASMA!! CHLORIDE 108 H mmol/L 98 - 107 06/02/2023 08:42 PLASMA!! CO2 23 mmol/L 22 - 06/02/2023 08:42 PLASMA!! CALCIUM 10.0 mg/dL 8.4 - 10.2 06/02/2023 08:42 PLASMA!! ANION GAP 8.0 mEq/L 3 - 08/27/2021 09:39 PLASMA eGFR (TO 09-24-21) 29 SEE EVAL ASSESSMENT AND PLAN: - Chronic obstructive lung disease/tobacco use- still smokes < ppd . Stable. Continue: FLUTICAS 250/SALMETEROL 50 INHL DISK 60 INHALE 1 INHALATION BY MOUTH TWICE A DAY. - Diabetes mellitus- controlled per 06/02/2024 A1c Takes no RXs for his diabetic nephropathy- The carvidolol may help some. Continue: GLIPIZIDE 5MG TAB TAKE ONE TABLET BY MOUTH EVERY DAY EMPAGLIFLOZIN 25MG TAB TAKE ONE TABLET BY MOUTH EVERY MORNING - Hyperlipidemia- uncontrolled per 06/02/2024 labs. Continue: ROSUVASTATIN CA 20MG TAB TAKE ONE-HALF TABLET BY MOUTH AT BEDTIME low fat and low cholesterol diet encouraged. Monitor FLP and LFTs. - Chronic Kidney Disease, Unspecified Order labs and renal ultrasound then consult renal. - Coronary artery disease/-PPM/- heart cath x 7 times with several stents to unknown coronaries- stable. Continue F/U [facility] Cardiology- Dr Frederick at [facility]. Continue: ROSUVASTATIN CA 20MG TAB TAKE ONE-HALF TABLET BY MOUTH AT BEDTIME Non-VA ASPIRIN 81MG EC TAB 81MG MOUTH EVERY DAY . Does not have a plan to stop smoking anytime soon. - Gastroesophageal reflux disease- controlled. Continue PANTOPRAZOLE NA 40MG EC TAB TAKE ONE TABLET BY MOUTH EVERY DAY. - Low back pain -back surgery 25 years ago due to a ruptured disc . No radation - stable. No complaints today. 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 Continue: HYDROCODONE 7.5/ACETAMINOPHEN 325MG TAB TAKE 1 TABLET BY MOUTH THREE TIMES A DAY - Hearing loss - encouraged to wear his hearing aids... - Peripheral Vascular Disease- stable. Is taking ROSUVASTATIN CA 20MG TAB TAKE ONE-HALF TABLET BY MOUTH AT BEDTIME Non-VA ASPIRIN 81MG EC TAB 81MG MOUTH EVERY DAY. Has no plan to stop smoking anytime soon. - Hypertension - controlled. Continue: AMLODIPINE BESYLATE 10MG TAB TAKE ONE TABLET BY MOUTH DAILY CARVEDILOL 25MG TAB TAKE ONE-HALF TABLET BY MOUTH TWICE A DAY ISOSORBIDE MONONITRATE 30MG SA TAB TAKE ONE TABLET BY MOUTH DAILY - Constipation- controlled . Continue: Non-VA POLYETHYLENE GLYCOL 3350 ORAL PWDR 1 HEAPING TABLESPOONFUL IN LIQUID MOUTH DAILY. Medication Reconciliation: Reviewed and reconciled medication list with patient and/or caregiver: _x__ No discrepancies were found, ___ Discrepancies were corrected or sent to the ordering provider to correct The updated medication list was given to the patient/caregiver by: ___Patient declines med list, _x__Handing physical copy at the end of visit, ___Mail, ___[facility] ___Patient does not take any meds ___ New pt presented with his/her list of meds. Pt instructed to watch for adverse reaction to therapy and if allergy suspected then discontinue and present immediately to ER. Potential side effects/adverse events associated with prescription medication including potential drug interactions were discussed and all questions answered. Patient expressed understanding of information presented in this note. -LABWORK: Today's labs: (x )FASTING ( )NON-FASTING: See orders ( ) NO LABS WITH THIS VISIT ( ) RETURN FOR LABS: -CONSULTS ENTERED FROM TODAYS VISIT:None -CLERICAL ORDERS: RNA APPOINTMENT:NA SCHEDULE THE FOLLOWING: RECALL:04/21/2025 ( ) Fasting labs on RTC ( ) Non-fasting labs on RTC: To be determined (x ) No labs on RTC Follow up:11 months and PRN The /caregiver voiced understanding of topics covered/discussed in today's visit. All questions were answered, and the patient/caregiver voiced understanding and agreement. I spent 39 min today reviewing last visit notes, recent lab results, recent XRs reports, [facility] for any recent hospitilizations or ER visits, [facility] consults, Consults reports , evaluating and managing the patient's acute and chronic conditions, and documenting clinical information in health record. _x_ Preparing to see patient (tests, reviewing last progress note) _x_ Perform medically necessary Exam _x_ Order tests, procedures, medications _x_ Documenting clinical info in health record _x_ Independently interpreting results and communicating results to patient/caregiver _X__ Refer and/or communicate with other providers regarding patient _X__ Obtain/review separately obtained history _X_ Placed consult SYSTEM GENERATED CLINICAL REMINDERS: PAVE Foot Check: A complete foot check was completed at this encounter. VISUAL INSPECTION: Includes inspection for skin breaks, deformity, erythema, trauma, pallor on elevation, dependent rubor, nail deformities, extensive callus and pitting edema. Visual exam results: Normal PEDAL PULSES: Includes palpation of dorsalis and posterior tibial pulses and signs/symptoms of vascular compromise like pain, pallor, parasthesia or paralysis. Present (even if diminished) SENSORY CHECK: Includes 10 gram Monofilament (Welda-Renetta) test of sensation. Intact (Greater than or equal to 80% of sites checked) Abnormal (Less than 80% of sites checked): Intact LOW-RISK: LOW RISK INFORMATION PROVIDED: 1. Advised patient not to walk barefoot. 2. Explained the importance of daily foot checks for changes. 3. Stressed the importance of daily foot hygiene, including bathing and complete drying. Tobacco Use Screening: The patient uses tobacco every day. The patient uses tobacco within 30 minutes of waking up. The patient has been smoking or using tobacco for thirty years or more. Patient was advised to quit smoking and/or using tobacco. Discussion with patient included: - Quitting smoking or tobacco use is one of the most important things you can do to protect and improve your health and [place] has the resources to support you. - Set a quit date when you are ready to quit. - Get support from your family and friends. - Review any past quit attempts- What helped? What didn't? - On the day you plan to quit, get rid of all cigarettes and tobacco products from your home, car or work. - Using a combination of behavioral counseling or other support strategies and FDA-approved cessation medications is the most effective way to ensure success in quitting. Patient was offered Behavioral Counseling and other support strategies to assist with quitting. Discussion with patient included: - Behavioral counseling or other support strategies greatly increases your chances of successfully quitting smoking or tobacco use by helping you develop a quit plan and providing support and other strategies to make behavioral changes to help you quit. - [place] has a number of behavioral counseling options to help you with quitting, including: * Provide information about the facility smoking or tobacco use treatment options or clinics * [place]'s national quitline, 1-410-HRXI-VET, with counseling available Monday-Monday The patient was not interested in receiving additional information about how to use the treatment options discussed. Patient was offered FDA-approved cessation medications. Discussion with patient included: - Medications for Nicotine replacement therapy such as the patch, gum or lozenge, and other medications such as varenicline or bupropion, can play an important role in the initial weeks and months after you quit smoking or tobacco use. - Medications help with cravings and withdrawal symptoms and they greatly increase your chances of successfully quitting. The patient was not interested in a prescription for tobacco cessation medications. Herpes Zoster (Shingles) Vaccine: Prior Herpes Zoster vaccination The patient has been vaccinated in the past but written documentation of vaccination is not available today. Patient instructed to obtain a written record of the prior vaccine and bring it to the next appointment. DICK-DM HbA1c not done: Glycohemoglobin (HgbA1c) ordered /es/ FAHAD BLOCK MD Signed: 05/10/2024 21:15 05/10/2024 ADDENDUM STATUS: COMPLETED Please let pt know that his labs submitted on 05/10/2024 showed: His diabetes is fairly controlled. NO change to his dm meds is rec. Diabetic nephropathy is not controlled and untreated. Rec low dose lisinopril 5 mg po daily if agreeable. Protein in the urine noted since 2021 - in the range of 30-100 , was 30 on 05/10/2024. Multifactorial. Will defer that to renal consult . His cholesterol and triglycerides are uncontrolled. rec to increase his rosuvastatin to 20 mg po daily if agreeable. Worsening CKD - A consult to nephrology is placed. Rec to avoid all NSAIDs, low salt diet , dm and htn control also rec. His CALCIUM is slightly elevated for which additional labs are ordered. His B12 level is elevated- rec to hold if taking any b12 Thank you. /tiffanie BLOCK MD Signed: 05/10/2024 22:45 Receipt Acknowledged By: 05/14/2024 12:25 /MJ Brandt,RN PC IMITATION [employer]BLE MECHANIC 05/13/2024 ADDENDUM STATUS: COMPLETED Left HIPAA compliant voicemail message x 1 to return call to clinic. /MJ Brandt,RN PC IMITATION [employer]BLE MECHANIC Signed: 05/13/2024 09:35 05/14/2024 ADDENDUM STATUS: COMPLETED SEE PC CARE MANAGEMENT NOTE 05/14/24 /MJ Brandt,RN PC IMITATION [employer]BLE MECHANIC Signed: 05/14/2024 12:25 05/24/2024 ADDENDUM STATUS: COMPLETED Please let pt know that his labs submitted on 05/17/2024 showed: PTH elevated and phosphus elevated for which he needs to f/u nephrology. His renal u/s showed simple renal cyst. Thank you. /tiffanie BLOCK MD Signed: 05/24/2024 22:46 Receipt Acknowledged By: * AWAITING SIGNATURE * MILADY SMITH 05/27/2024 ADDENDUM STATUS: COMPLETED Left HIPAA compliant voicemail message x 1 to return call to clinic. /MJ Brandt,RN PC IMITATION [employer]BLE MECHANIC Signed: 05/27/2024 10:34 [facility] May 24, 2024 10:42 PM ADDENDUM: LOCAL TITLE: Addendum STANDARD TITLE: ADDENDUM DATE OF NOTE: MAY 24, 2024@22:42:33 ENTRY DATE: MAY 24, 2024@22:42:35 AUTHOR: FAHAD BLOCK EXP COSIGNER: URGENCY: STATUS: COMPLETED Please let pt know that his labs submitted on 05/17/2024 showed: PTH elevated and phosphus elevated for which he needs to f/u nephrology. His renal u/s showed simple renal cyst. Thank you. /tiffanie BLOCK MD Signed: 05/24/2024 22:46 Receipt Acknowledged By: 05/28/2024 12:50 /es/ MJ BOBBY,RN PC IMITATION MARBLE MECHANIC --- Original Document --- 05/10/24 PC PROGRESS NOTE: ID: 88 year old MALE Chief Complaint: Ongoing management of active/chronic medical problems PC-Nurse's note is reviewed. HPI/PROBLEM LIST: Patient is a 88 year old MALE here today to establish treatment of active/chronic medical problems, and F/U test results. Patient denies any recent Hospitalizations, ER visits or surgeries in last 90 days. NON-[place] Provider- -Signals Collector/Analyst Dr Jl Frederick [facility]. - Primary Care Dr is Dr Raul Capone in [place]. NON-[facility] Pharmacy- NA - Chronic obstructive lung disease/tobacco use- still smokes < ppd . Smoked ppd since age 19 , quit in between x 7 years. Brathing is ok using: FLUTICAS 250/SALMETEROL 50 INHL DISK 60 INHALE 1 INHALATION BY MOUTH TWICE A DAY FOR BREATHING. - Diabetes mellitus- controlled per 06/02/2024 A1c 06/02/2023 08:42 BLOOD !! GLYCOHEMOGLOBIN 6.7 H % 4.4 - 6.4 06/02/2023 08:50 URINE MICROALBUMIN ELIZABETH 652.3 H mg/L 0.0 - 30.0 Takes no RXs for his diabetic nephropathy- The carvidolol may help some. Is taking: GLIPIZIDE 5MG TAB TAKE ONE TABLET BY MOUTH EVERY DAY EMPAGLIFLOZIN 25MG TAB TAKE ONE TABLET BY MOUTH EVERY MORNING - Hyperlipidemia- uncontrolled per 06/02/2024 labs. Is taking: ROSUVASTATIN CA 20MG TAB TAKE ONE-HALF TABLET BY MOUTH AT BEDTIME - Chronic Kidney Disease, Unspecified 06/02/2023 08:42 PLASMA!! CREATININE 2.19 H mg/dL 0.72 -.25 does not F/U renal- order labs and renal ultrasound then consult renal. - Coronary artery disease/-PPM/- heart cath x 7 times with several stents to unknown coronaries- Denies chest pain, palpitation, syncope, or leg edema. F/U [facility] Cardiology- Dr Frederick at [facility]. Is taking: ROSUVASTATIN CA 20MG TAB TAKE ONE-HALF TABLET BY MOUTH AT BEDTIME Non-VA ASPIRIN 81MG EC TAB 81MG MOUTH EVERY DAY . Still smokes. - Gastroesophageal reflux disease- Denies dysphagia, weight loss or melena. Controlled taking: PANTOPRAZOLE NA 40MG EC TAB TAKE ONE TABLET BY MOUTH EVERY DAY. - Low back pain -back surgery 25 years ago due to a ruptured disc . No radation - No pt, chiropractor, or injections. stable does not bother him much these day. 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 Fairly controlled taking HYDROCODONE 7.5/ACETAMINOPHEN 325MG TAB TAKE 1 TABLET BY MOUTH THREE TIMES A DAY - Hearing loss - dose not wear his bilateral hearing aids all the time. - Peripheral Vascular Disease- No stenting. stable. Is taking ROSUVASTATIN CA 20MG TAB TAKE ONE-HALF TABLET BY MOUTH AT BEDTIME Non-VA ASPIRIN 81MG EC TAB 81MG MOUTH EVERY DAY. still smokes at < ppd. - Hypertension - home bp is good . BP in the clinic today is 132/75. 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 - Constipation- controlled takig : Non-VA POLYETHYLENE GLYCOL 3350 ORAL PWDR 1 HEAPING TABLESPOONFUL IN LIQUID MOUTH DAILY. Denies side effects. HEALTH CARE MAINTENANCE: .SCREENING- - LDCT Screening for Lung Cancer: Not indicated due to age group. - AAA Screening : h/o AAA , s/p repair by [facility]. - Screening for colon cancer: Colonoscope x2 lifel time ;Had on a few years ago outside the [place]. - PSA:12.409 ng/mL ( 06/02/23 ) H - Screening for HIV:No records found. - Screening for HCV:No records found. . IM - Immunizations ADMINISTERED COVID-19 (PFIZER), MRNA, LNP-S, * 1 06/29/2022 [place]* COVID-19 ([employer]), MRNA, LNP-S, * 3 03/10/2021 [place] * COVID-19 ([employer]), MRNA, LNP-S, * 2 08/01/2020 [place]* COVID-19 ([employer]), MRNA, LNP-S, * 1 07/11/2020 [place]* COVID-19 ([employer]), MRNA, LNP-S, * 4 11/26/2021 [place]* INFLUENZA, HIGH-DOSE, TRIVALENT,* 2 05/04/2024 IZG:DEMET[facility]O IIS PNEUMOCOCCAL, UNSPECIFIED FORMUL* No Site TD(ADULT) UNSPECIFIED FORMULATION 06/26/2009 No Site TD(ADULT) UNSPECIFIED FORMULATION No Site TD(ADULT) UNSPECIFIED FORMULATION [facility] * TD(ADULT) UNSPECIFIED FORMULATION No Site TDAP 1 09/09/2020 IZG:DEMETRIO IIS REFUSED ======= COVID-19 (MODERNA), MRNA, LNP-S,* 05/10/2024 [place]* PNEUMOCOCCAL CONJUGATE, UNSPECIF* 06/29/2022 [place]* ZOSTER RECOMBINANT 06/29/2022 [place]* ST - Skin Tests No data available: No Hep A immunization history found. No Hep B immunization history found. Active problems - Computerized Problem List is [...] ischemic heart disease 18. Hypertension (SNOMED CT [id number]) 19. Other and unspecified hyperlipidemia 20. Aneurysm, Aorta, Abdominal 4.5CM2 02/25 List of active problems are reviewed with patient and updated. SURGICAL HISTORY: 10/05/2023 LEFT EYE EXTRACAPSULAR CATARACT (COMPLETED) EXTRACTION WITH POSTERIOR CHAMBER INTRAOCULAR LENS IMPLANT 08/10/2023 RIGHT EYE EXTRACAPSULAR CATARACT (COMPLETED) EXTRACTION WITH POSTERIOR CHAMBER INTRAOCULAR LENS IMPLANT L-spine surgery L4-L5 disectomy 25 years ago - Neri Reyes- affilitaed by [facility] now. FAMILY HISTORY Father- 75 yo , had lymph node cancer Mother- 85 yo, had :heart condition . Siblings- 3 brothers, 2 . Children- 2 daughters and 2 sons. 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 MARITAL STATUS - . lives with daughter TOBACCO: smokes 1/2ppd ALCOHOL: None ILLICIT DRUGS: Denies ROS: A 10 point ROS was completed with patient and is negative with exception of what was noted above in History of Present Illness and Past Medical History sections. DS - Disabilities Eligibility: NSC VERIFIED MEDICATIONS: Active and Recently Outpatient Medications (including Supplies): Active Outpatient Medications Status 1) AMLODIPINE BESYLATE 10MG TAB TAKE ONE TABLET BY MOUTH ACTIVE DAILY FOR BLOOD PRESSURE/HEART - DO NOT DRINK GRAPEFRUIT JUICE WHILE ON THIS DRUG 2) CARVEDILOL 25MG TAB TAKE ONE-HALF TABLET BY MOUTH ACTIVE TWICE A DAY FOR HEART 3) CHOLECALCIF 25MCG (D3-1,000UNIT) TAB TAKE ONE TABLET ACTIVE BY MOUTH DAILY FOR VITAMIN D SUPPLEMENT 4) EMPAGLIFLOZIN 25MG TAB TAKE ONE TABLET BY MOUTH EVERY ACTIVE MORNING FOR BLOOD SUGAR 5) FLUTICAS 250/SALMETEROL 50 INHL DISK 60 INHALE 1 ACTIVE INHALATION BY MOUTH TWICE A DAY FOR BREATHING -RINSE MOUTH AND SPIT AFTER EACH USE 6) GLIPIZIDE 5MG TAB TAKE ONE TABLET BY MOUTH EVERY DAY ACTIVE FOR DIABETES 7) HYDROCODONE 7.5/ACETAMINOPHEN 325MG TAB TAKE 1 TABLET ACTIVE BY MOUTH THREE TIMES A DAY FOR PAIN 8) ISOSORBIDE MONONITRATE 30MG SA TAB TAKE ONE TABLET BY ACTIVE MOUTH DAILY FOR HEART 9) PANTOPRAZOLE NA 40MG EC TAB TAKE ONE TABLET BY MOUTH ACTIVE EVERY DAY 30 MINUTES BEFORE A MEAL FOR STOMACH. TAKE ON AN EMPTY STOMACH. 10) ROSUVASTATIN CA 20MG TAB TAKE ONE-HALF TABLET BY ACTIVE MOUTH AT BEDTIME FOR CHOLESTEROL Inactive Outpatient Medications Status 1) DEXTRAN 70/GLYCER 0.2%/HYPROMEL 0.3% OPH PUT 1 DROP IN BOTH EYES TWICE A DAY FOR DRY EYES 2) HYDROCODONE 7.5/ACETAMINOPHEN 325MG TAB TAKE 1 TABLET BY MOUTH THREE TIMES A DAY FOR PAIN Active Non-VA Medications Status 1) Non-VA ASCORBIC ACID 500MG TAB 1000MG MOUTH DAILY ACTIVE 2) Non-VA ASPIRIN 81MG EC TAB 81MG MOUTH EVERY DAY ACTIVE 3) Non-VA FISH OIL 1000MG (500MG DHA/EPA) CAP 2000MG ACTIVE MOUTH TWICE A DAY 4) Non-VA MULTIVITAMIN/MINERALS THERAPEUT CAP/TAB 1 ACTIVE TABLET MOUTH DAILY 5) Non-VA NIACIN (SLO-NIACIN) 500MG TAB,SA 1000MG MOUTH ACTIVE AT BEDTIME 6) Non-VA POLYETHYLENE GLYCOL 3350 ORAL PWDR 1 HEAPING ACTIVE TABLESPOONFUL IN LIQUID MOUTH DAILY 7) Non-VA QUERCETIN CAP/TAB 1 CAP/TAB MOUTH DAILY ACTIVE 8) Non-VA ZINC (FROM SULFATE) CAP,ORAL 25MG MOUTH EVERY ACTIVE EVENING 20 Total Medications ALLERGIES: ATORVASTATIN, CLOPIDOGREL, PENICILLIN PHYSICAL EXAM: VITAL SIGNS Measurement DT TEMP PULSE RESP BP HT WT F(C) IN(CM) LB(KG)[BMI] ---- ----- ---- -- ------ 05/10/2024 07:54 98.1(36.7) 99 132/75 71.0(180) 203(92.1)[28*] Measurement DT CVP POx CG CMH20(MMHG) (L/MIN)(%) IN(CM) ------ 05/10/2024 07:54 99 Measurement DT Pain ---- 05/10/2024 07:54 0 MOBILITY: ambulating WITHOUT assistive device. General: Well-developed , well-nourished MALE in no acute distress. HEENT: Atraumatic, Normocephalic, no icterus. Nose is patent. Moist mucous membranes. No oral lesions. Neck- Supple, could not appreciate JVD, carotid bruit,thyromegaly, or lymphadenopathy. Heart: RRR, Normal S1 and S2, no S4, no M/G/R. Lungs: Clear to auscultation, no rales, no wheezes, no rhonchi Abdomen: Nontender, nondistended, normal bowel sounds Extremities: No edema. normal pulses Musculoskeletal: No joint swelling, erythema or warmth. Neurologic: Alert and oriented times 3, no new focal neurological deficits. Skin: Warm and dry, no new lesions. PSYCH: Appropriate mood and behavior. Interacting appropriately. IMAGES: No recent studies. LABS: 06/02/2023 08:42 BLOOD !! GLYCOHEMOGLOBIN 6.7 H % 4.4 - 6.4 06/29/2022 08:43 BLOOD !! GLYCOHEMOGLOBIN 7.0 H % 4.4 - 6.4 07/13/2021 14:11 BLOOD !! GLYCOHEMOGLOBIN 7.2 H % 4.4 - 6.4 12/31/2018 09:13 BLOOD !! GLYCOHEMOGLOBIN 6.8 H % 4.4 - 6.4 06/02/2023 08:50 URINE MICROALBUMIN ELIZABETH 652.3 H mg/L 0.0 - 30.0 06/02/2023 08:42 PLASMA!! CHOLESTEROL 219 H mg/dL 0 - 199 06/02/2023 08:42 PLASMA!! TRIGLYCERIDE 324 H mg/dL 0 - 149 06/02/2023 08:42 PLASMA!! HDL CHOLESTEROL 34 L mg/dL 40 - 69 06/02/2023 08:42 PLASMA!! DIRECT LDL CHOL. 74 mg/dL 0 - 100 PANEL 2 Zehra. date TOT PRO ALBUMIN SGOT SGPT Z ALK PHZ DIRECTZ TOTAL 06/02/23 08:42 7.9 5.0 23 23 89 0.9 PSA:12.409 ng/mL H (06/02/2023 08:42) URINALYSIS Zehra. date Z SPECIFZ URINE Z URINE Z URINE Z URINE Z URINE Z URINE 06/02/23 08:50 1.018 150 H Light Y Clear 5.5 70 H Negativ URINALYSIS Zehra. date Z URINE Z URINE Z URINE Z URINE Z LEUK. 06/02/23 08:50 Negativ Negativ Negativ Normal Negativ 06/02/2023 08:42 BLOOD WBC 7.2 K/cmm 5.0 - 10.0 06/02/2023 08:42 BLOOD RBC 4.83 M/cmm 4.6 - 6.2 06/02/2023 08:42 BLOOD HGB 14.8 g/dL 14.0 - 18.0 06/02/2023 08:42 BLOOD HCT 44.8 % 42.0 - 52.0 06/02/2023 08:42 BLOOD MCV 92.8 fL 80.0 - 94.0 06/02/2023 08:42 BLOOD MCH 30.6 pg 27.0 - 31.0 06/02/2023 08:42 BLOOD MCHC 33.0 g/dL 32.0 - 36.0 06/02/2023 08:42 BLOOD PLT 146 L K/cmm 150 - 450 06/02/2023 08:42 BLOOD MPV 9.7 fL 9.0 - 13.1 06/02/2023 08:42 BLOOD RDW 15.5 % 11.0 - 16.0 06/02/2023 08:42 BLOOD NRBC 0.0 % 0.0 - 0.0 06/02/2023 08:50 URINE CREATININE 126.2 mg/dL 06/02/2023 08:42 PLASMA!! UREA NITROGEN 30 H mg/dL 9 - 25 06/02/2023 08:42 PLASMA!! eGFR (CKD-EPI) 29 SEE EVAL 06/02/2023 08:42 PLASMA!! GLUCOSE 151 H mg/dL 74 - 100 06/02/2023 08:42 PLASMA!! SODIUM 139 mmol/L 136 - 145 06/02/2023 08:42 PLASMA!! POTASSIUM 4.8 mmol/L 3.5 - 5.1 06/02/2023 08:42 PLASMA!! CHLORIDE 108 H mmol/L 98 - 107 06/02/2023 08:42 PLASMA!! CO2 23 mmol/L 22 - 29 06/02/2023 08:42 PLASMA!! CALCIUM 10.0 mg/dL 8.4 - 10.2 06/02/2023 08:42 PLASMA!! ANION GAP 8.0 mEq/L 3 - 19 08/27/2021 09:39 PLASMA eGFR (TO 09-24-21) 29 SEE EVAL ASSESSMENT AND PLAN: - Chronic obstructive lung disease/tobacco use- still smokes < ppd . Stable. Continue: FLUTICAS 250/SALMETEROL 50 INHL DISK 60 INHALE 1 INHALATION BY MOUTH TWICE A DAY. - Diabetes mellitus- controlled per 06/02/2024 A1c Takes no RXs for his diabetic nephropathy- The carvidolol may help some. Continue: GLIPIZIDE 5MG TAB TAKE ONE TABLET BY MOUTH EVERY DAY EMPAGLIFLOZIN 25MG TAB TAKE ONE TABLET BY MOUTH EVERY MORNING - Hyperlipidemia- uncontrolled per 06/02/2024 labs. Continue: ROSUVASTATIN CA 20MG TAB TAKE ONE-HALF TABLET BY MOUTH AT BEDTIME low fat and low cholesterol diet encouraged. Monitor FLP and LFTs. - Chronic Kidney Disease, Unspecified Order labs and renal ultrasound then consult renal. - Coronary artery disease/-PPM/- heart cath x 7 times with several stents to unknown coronaries- stable. Continue F/U [facility] Cardiology- Dr Frederick at [facility]. Continue: ROSUVASTATIN CA 20MG TAB TAKE ONE-HALF TABLET BY MOUTH AT BEDTIME Non-VA ASPIRIN 81MG EC TAB 81MG MOUTH EVERY DAY . Does not have a plan to stop smoking anytime soon. - Gastroesophageal reflux disease- controlled. Continue PANTOPRAZOLE NA 40MG EC TAB TAKE ONE TABLET BY MOUTH EVERY DAY. - Low back pain -back surgery 25 years ago due to a ruptured disc . No radation - stable. No complaints today. 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 Continue: HYDROCODONE 7.5/ACETAMINOPHEN 325MG TAB TAKE 1 TABLET BY MOUTH THREE TIMES A DAY - Hearing loss - encouraged to wear his hearing aids... - Peripheral Vascular Disease- stable. Is taking ROSUVASTATIN CA 20MG TAB TAKE ONE-HALF TABLET BY MOUTH AT BEDTIME Non-VA ASPIRIN 81MG EC TAB 81MG MOUTH EVERY DAY. Has no plan to stop smoking anytime soon. - Hypertension - controlled. Continue: AMLODIPINE BESYLATE 10MG TAB TAKE ONE TABLET BY MOUTH DAILY CARVEDILOL 25MG TAB TAKE ONE-HALF TABLET BY MOUTH TWICE A DAY ISOSORBIDE MONONITRATE 30MG SA TAB TAKE ONE TABLET BY MOUTH DAILY - Constipation- controlled . Continue: Non-VA POLYETHYLENE GLYCOL 3350 ORAL PWDR 1 HEAPING TABLESPOONFUL IN LIQUID MOUTH DAILY. Medication Reconciliation: Reviewed and reconciled medication list with patient and/or caregiver: _x__ No discrepancies were found, ___ Discrepancies were corrected or sent to the ordering provider to correct The updated medication list was given to the patient/caregiver by: ___Patient declines med list, _x__Handing physical copy at the end of visit, ___Mail, ___[facility] ___Patient does not take any meds ___ New pt presented with his/her list of meds. Pt instructed to watch for adverse reaction to therapy and if allergy suspected then discontinue and present immediately to ER. Potential side effects/adverse events associated with prescription medication including potential drug interactions were discussed and all questions answered. Patient expressed understanding of information presented in this note. -LABWORK: Today's labs: (x )FASTING ( )NON-FASTING: See orders ( ) NO LABS WITH THIS VISIT ( ) RETURN FOR LABS: -CONSULTS ENTERED FROM TODAYS VISIT:None -CLERICAL ORDERS: RNA APPOINTMENT:NA SCHEDULE THE FOLLOWING: RECALL:04/21/2025 ( ) Fasting labs on RTC ( ) Non-fasting labs on RTC: To be determined (x ) No labs on RTC Follow up:11 months and PRN The /caregiver voiced understanding of topics covered/discussed in today's visit. All questions were answered, and the patient/caregiver voiced understanding and agreement. I spent 39 min today reviewing last visit notes, recent lab results, recent XRs reports, [facility] for any recent hospitilizations or ER visits, [facility] consults, Consults reports , evaluating and managing the patient's acute and chronic conditions, and documenting clinical information in health record. _x_ Preparing to see patient (tests, reviewing last progress note) _x_ Perform medically necessary Exam _x_ Order tests, procedures, medications _x_ Documenting clinical info in health record _x_ Independently interpreting results and communicating results to patient/caregiver _X__ Refer and/or communicate with other providers regarding patient _X__ Obtain/review separately obtained history _X_ Placed consult SYSTEM GENERATED CLINICAL REMINDERS: PAVE Foot Check: A complete foot check was completed at this encounter. VISUAL INSPECTION: Includes inspection for skin breaks, deformity, erythema, trauma, pallor on elevation, dependent rubor, nail deformities, extensive callus and pitting edema. Visual exam results: Normal PEDAL PULSES: Includes palpation of dorsalis and posterior tibial pulses and signs/symptoms of vascular compromise like pain, pallor, parasthesia or paralysis. Present (even if diminished) SENSORY CHECK: Includes 10 gram Monofilament (Welda-Renetta) test of sensation. Intact (Greater than or equal to 80% of sites checked) Abnormal (Less than 80% of sites checked): Intact LOW-RISK: LOW RISK INFORMATION PROVIDED: 1. Advised patient not to walk barefoot. 2. Explained the importance of daily foot checks for changes. 3. Stressed the importance of daily foot hygiene, including bathing and complete drying. Tobacco Use Screening: The patient uses tobacco every day. The patient uses tobacco within 30 minutes of waking up. The patient has been smoking or using tobacco for thirty years or more. Patient was advised to quit smoking and/or using tobacco. Discussion with patient included: - Quitting smoking or tobacco use is one of the most important things you can do to protect and improve your health and [place] has the resources to support you. - Set a quit date when you are ready to quit. - Get support from your family and friends. - Review any past quit attempts- What helped? What didn't? - On the day you plan to quit, get rid of all cigarettes and tobacco products from your home, car or work. - Using a combination of behavioral counseling or other support strategies and FDA-approved cessation medications is the most effective way to ensure success in quitting. Patient was offered Behavioral Counseling and other support strategies to assist with quitting. Discussion with patient included: - Behavioral counseling or other support strategies greatly increases your chances of successfully quitting smoking or tobacco use by helping you develop a quit plan and providing support and other strategies to make behavioral changes to help you quit. - [place] has a number of behavioral counseling options to help you with quitting, including: * Provide information about the facility smoking or tobacco use treatment options or clinics * [place]'s national quitline, 7-620-FESL-VET, with counseling available Monday-Monday The patient was not interested in receiving additional information about how to use the treatment options discussed. Patient was offered FDA-approved cessation medications. Discussion with patient included: - Medications for Nicotine replacement therapy such as the patch, gum or lozenge, and other medications such as varenicline or bupropion, can play an important role in the initial weeks and months after you quit smoking or tobacco use. - Medications help with cravings and withdrawal symptoms and they greatly increase your chances of successfully quitting. The patient was not interested in a prescription for tobacco cessation medications. Herpes Zoster (Shingles) Vaccine: Prior Herpes Zoster vaccination The patient has been vaccinated in the past but written documentation of vaccination is not available today. Patient instructed to obtain a written record of the prior vaccine and bring it to the next appointment. DICK-DM HbA1c not done: Glycohemoglobin (HgbA1c) ordered /echo/ FAHAD BLOCK MD Signed: 05/10/2024 21:15 05/10/2024 ADDENDUM STATUS: COMPLETED Please let pt know that his labs submitted on 05/10/2024 showed: His diabetes is fairly controlled. NO change to his dm meds is rec. Diabetic nephropathy is not controlled and untreated. Rec low dose lisinopril 5 mg po daily if agreeable. Protein in the urine noted since 2021 - in the range of 30-100 , was 30 on 05/10/2024. Multifactorial. Will defer that to renal consult . His cholesterol and triglycerides are uncontrolled. rec to increase his rosuvastatin to 20 mg po daily if agreeable. Worsening CKD - A consult to nephrology is placed. Rec to avoid all NSAIDs, low salt diet , dm and htn control also rec. His CALCIUM is slightly elevated for which additional labs are ordered. His B12 level is elevated- rec to hold if taking any b12 Thank you. /echo/ FAHAD BLOCK MD Signed: 05/10/2024 22:45 Receipt Acknowledged By: 05/14/2024 12:25 /echo/ MJ BOBBY,RN PC IMITATION MARBLE MECHANIC 05/13/2024 ADDENDUM STATUS: COMPLETED Left HIPAA compliant voicemail message x 1 to return call to clinic. /MJ Brandt,RN PC IMITATION MARBLE MECHANIC Signed: 05/13/2024 09:35 05/14/2024 ADDENDUM STATUS: COMPLETED SEE PC CARE MANAGEMENT NOTE 05/14/24 /MJ Brandt,RN PC IMITATION MARBLE MECHANIC Signed: 05/14/2024 12:25 05/27/2024 ADDENDUM STATUS: COMPLETED Left HIPAA compliant voicemail message x 1 to return call to clinic. /echo/ MJ BOBBY,RN PC IMITATION MARBLE MECHANIC Signed: 05/27/2024 10:34 05/27/2024 ADDENDUM STATUS: COMPLETED Pt returning your call thank you. PH: v/antonio Smith /echo/ DAWN MERCADO MSA Signed: 05/27/2024 11:14 Receipt Acknowledged By: 05/27/2024 11:34 /echo/ MJ BOBBY,RN PC IMITATION MARBLE MECHANIC 05/28/2024 ADDENDUM STATUS: UNSIGNED You may not VIEW this UNSIGNED Addendum. FAHAD BLOCK [facility] May 10, 2024 09:23 PM ADDENDUM: LOCAL TITLE: Addendum STANDARD TITLE: ADDENDUM DATE OF NOTE: MAY 10, 2024@21:23:19 ENTRY DATE: MAY 10, 2024@21:23:19 AUTHOR: FAHAD BLOCK EXP COSIGNER: URGENCY: STATUS: COMPLETED Please let pt know that his labs submitted on 05/10/2024 showed: His diabetes is fairly controlled. NO change to his dm meds is rec. Diabetic nephropathy is not controlled and untreated. Rec low dose lisinopril 5 mg po daily if agreeable. Protein in the urine noted since 2021 - in the range of 30-100 , was 30 on 05/10/2024. Multifactorial. Will defer that to renal consult . His cholesterol and triglycerides are uncontrolled. rec to increase his rosuvastatin to 20 mg po daily if agreeable. Worsening CKD - A consult to nephrology is placed. Rec to avoid all NSAIDs, low salt diet , dm and htn control also rec. His CALCIUM is slightly elevated for which additional labs are ordered. His B12 level is elevated- rec to hold if taking any b12 Thank you. /es/ FAHAD BLOCK MD Signed: 05/10/2024 22:45 Receipt Acknowledged By: 05/14/2024 12:25 /echo/ MJ BOBBY,RN PC IMITATION MARBLE MECHANIC --- Original Document --- 05/10/24 PC PROGRESS NOTE: ID: 88 year old MALE Chief Complaint: Ongoing management of active/chronic medical problems PC-Nurse's note is reviewed. HPI/PROBLEM LIST: Patient is a 88 year old MALE here today to establish treatment of active/chronic medical problems, and F/U test results. Patient denies any recent Hospitalizations, ER visits or surgeries in last 90 days. NON-[place] Provider- -Signals Collector/Analyst Dr Jl Frederick [facility]. - Primary Care Dr is Dr Raul Capone in [place]. NON-[place] Pharmacy- NA - Chronic obstructive lung disease/tobacco use- still smokes < ppd . Smoked ppd since age 19 , quit in between x 7 years. Brathing is ok using: FLUTICAS 250/SALMETEROL 50 INHL DISK 60 INHALE 1 INHALATION BY MOUTH TWICE A DAY FOR BREATHING. - Diabetes mellitus- controlled per 06/02/2024 A1c 06/02/2023 08:42 BLOOD !! GLYCOHEMOGLOBIN 6.7 H % 4.4 - 6.4 06/02/2023 08:50 URINE MICROALBUMIN ELIZABETH 652.3 H mg/L 0.0 - 30.0 Takes no RXs for his diabetic nephropathy- The carvidolol may help some. Is taking: GLIPIZIDE 5MG TAB TAKE ONE TABLET BY MOUTH EVERY DAY EMPAGLIFLOZIN 25MG TAB TAKE ONE TABLET BY MOUTH EVERY MORNING - Hyperlipidemia- uncontrolled per 06/02/2024 labs. Is taking: ROSUVASTATIN CA 20MG TAB TAKE ONE-HALF TABLET BY MOUTH AT BEDTIME - Chronic Kidney Disease, Unspecified 06/02/2023 08:42 PLASMA!! CREATININE 2.19 H mg/dL 0.72 -.25 does not F/U renal- order labs and renal ultrasound then consult renal. - Coronary artery disease/-PPM/- heart cath x 7 times with several stents to unknown coronaries- Denies chest pain, palpitation, syncope, or leg edema. F/U [facility] Cardiology- Dr Frederick at [facility]. Is taking: ROSUVASTATIN CA 20MG TAB TAKE ONE-HALF TABLET BY MOUTH AT BEDTIME Non-VA ASPIRIN 81MG EC TAB 81MG MOUTH EVERY DAY . Still smokes. - Gastroesophageal reflux disease- Denies dysphagia, weight loss or melena. Controlled taking: PANTOPRAZOLE NA 40MG EC TAB TAKE ONE TABLET BY MOUTH EVERY DAY. - Low back pain -back surgery 25 years ago due to a ruptured disc . No radation - No pt, chiropractor, or injections. stable does not bother him much these day. 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 Fairly controlled taking HYDROCODONE 7.5/ACETAMINOPHEN 325MG TAB TAKE 1 TABLET BY MOUTH THREE TIMES A DAY - Hearing loss - dose not wear his bilateral hearing aids all the time. - Peripheral Vascular Disease- No stenting. stable. Is taking ROSUVASTATIN CA 20MG TAB TAKE ONE-HALF TABLET BY MOUTH AT BEDTIME Non-VA ASPIRIN 81MG EC TAB 81MG MOUTH EVERY DAY. still smokes at < ppd. - Hypertension - home bp is good . BP in the clinic today is 132/75. 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 - Constipation- controlled takig : Non-VA POLYETHYLENE GLYCOL 3350 ORAL PWDR 1 HEAPING TABLESPOONFUL IN LIQUID MOUTH DAILY. Denies side effects. HEALTH CARE MAINTENANCE: .SCREENING- - LDCT Screening for Lung Cancer: Not indicated due to age group. - AAA Screening : h/o AAA , s/p repair by [facility]. - Screening for colon cancer: Colonoscope x2 lifel time ;Had on a few years ago outside the [place]. - PSA:12.409 ng/mL ( 06/02/23 ) H - Screening for HIV:No records found. - Screening for HCV:No records found. . IM - Immunizations ADMINISTERED COVID-19 ([employer]), MRNA, LNP-S, * 1 06/29/2022 [place]* COVID-19 ([employer]), MRNA, LNP-S, * 3 03/10/2021 [place] * COVID-19 ([employer]), MRNA, LNP-S, * 2 08/01/2020 [place]* COVID-19 ([employer]), MRNA, LNP-S, * 1 07/11/2020 [place]* COVID-19 ([employer]), MRNA, LNP-S, * 4 11/26/2021 [place]* INFLUENZA, HIGH-DOSE, TRIVALENT,* 2 05/04/2024 [place] IIS PNEUMOCOCCAL, UNSPECIFIED FORMUL* No Site TD(ADULT) UNSPECIFIED FORMULATION 06/26/2009 No Site TD(ADULT) UNSPECIFIED FORMULATION No Site TD(ADULT) UNSPECIFIED FORMULATION [facility] * TD(ADULT) UNSPECIFIED FORMULATION No Site TDAP 1 09/09/2020 [place] [facility] REFUSED ======= COVID-19 ([employer]), MRNA, LNP-S,* 05/10/2024 [place]* PNEUMOCOCCAL CONJUGATE, UNSPECIF* 06/29/2022 [place]* ZOSTER RECOMBINANT 06/29/2022 [place]* ST - Skin Tests No data available: No Hep A immunization history found. No Hep B immunization history found. Active problems - Computerized Problem List is [...] ischemic heart disease 18. Hypertension (SNOMED CT [id number]) 19. Other and unspecified hyperlipidemia 20. Aneurysm, Aorta, Abdominal 4.5CM2 02/25 List of active problems are reviewed with patient and updated. SURGICAL HISTORY: 10/05/2023 LEFT EYE EXTRACAPSULAR CATARACT (COMPLETED) EXTRACTION WITH POSTERIOR CHAMBER INTRAOCULAR LENS IMPLANT 08/10/2023 RIGHT EYE EXTRACAPSULAR CATARACT (COMPLETED) EXTRACTION WITH POSTERIOR CHAMBER INTRAOCULAR LENS IMPLANT L-spine surgery L4-L5 disectomy 25 years ago - Neri Reyes- affilitaed by now. FAMILY HISTORY Father- 75 yo , had lymph node cancer Mother- 85 yo, had :heart condition . Siblings- 3 brothers, 2 . Children- 2 daughters and 2 sons. 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 MARITAL STATUS - . lives with daughter TOBACCO: smokes 1/2ppd ALCOHOL: None ILLICIT DRUGS: Denies ROS: A 10 point ROS was completed with patient and is negative with exception of what was noted above in History of Present Illness and Past Medical History sections. DS - Disabilities Eligibility: NSC VERIFIED MEDICATIONS: Active and Recently Outpatient Medications (including Supplies): Active Outpatient Medications Status 1) AMLODIPINE BESYLATE 10MG TAB TAKE ONE TABLET BY MOUTH ACTIVE DAILY FOR BLOOD PRESSURE/HEART - DO NOT DRINK GRAPEFRUIT JUICE WHILE ON THIS DRUG 2) CARVEDILOL 25MG TAB TAKE ONE-HALF TABLET BY MOUTH ACTIVE TWICE A DAY FOR HEART 3) CHOLECALCIF 25MCG (D3-1,000UNIT) TAB TAKE ONE TABLET ACTIVE BY MOUTH DAILY FOR VITAMIN D SUPPLEMENT 4) EMPAGLIFLOZIN 25MG TAB TAKE ONE TABLET BY MOUTH EVERY ACTIVE MORNING FOR BLOOD SUGAR 5) FLUTICAS 250/SALMETEROL 50 INHL DISK 60 INHALE 1 ACTIVE INHALATION BY MOUTH TWICE A DAY FOR BREATHING -RINSE MOUTH AND SPIT AFTER EACH USE 6) GLIPIZIDE 5MG TAB TAKE ONE TABLET BY MOUTH EVERY DAY ACTIVE FOR DIABETES 7) HYDROCODONE 7.5/ACETAMINOPHEN 325MG TAB TAKE 1 TABLET ACTIVE BY MOUTH THREE TIMES A DAY FOR PAIN 8) ISOSORBIDE MONONITRATE 30MG SA TAB TAKE ONE TABLET BY ACTIVE MOUTH DAILY FOR HEART 9) PANTOPRAZOLE NA 40MG EC TAB TAKE ONE TABLET BY MOUTH ACTIVE EVERY DAY 30 MINUTES BEFORE A MEAL FOR STOMACH. TAKE ON AN EMPTY STOMACH. 10) ROSUVASTATIN CA 20MG TAB TAKE ONE-HALF TABLET BY ACTIVE MOUTH AT BEDTIME FOR CHOLESTEROL Inactive Outpatient Medications Status 1) DEXTRAN 70/GLYCER 0.2%/HYPROMEL 0.3% OPH PUT 1 DROP IN BOTH EYES TWICE A DAY FOR DRY EYES 2) HYDROCODONE 7.5/ACETAMINOPHEN 325MG TAB TAKE 1 TABLET BY MOUTH THREE TIMES A DAY FOR PAIN Active Non-VA Medications Status 1) Non-VA ASCORBIC ACID 500MG TAB 1000MG MOUTH DAILY ACTIVE 2) Non-VA ASPIRIN 81MG EC TAB 81MG MOUTH EVERY DAY ACTIVE 3) Non-VA FISH OIL 1000MG (500MG DHA/EPA) CAP 2000MG ACTIVE MOUTH TWICE A DAY 4) Non-VA MULTIVITAMIN/MINERALS THERAPEUT CAP/TAB 1 ACTIVE TABLET MOUTH DAILY 5) Non-VA NIACIN (SLO-NIACIN) 500MG TAB,SA 1000MG MOUTH ACTIVE AT BEDTIME 6) Non-VA POLYETHYLENE GLYCOL 3350 ORAL PWDR 1 HEAPING ACTIVE TABLESPOONFUL IN LIQUID MOUTH DAILY 7) Non-VA QUERCETIN CAP/TAB 1 CAP/TAB MOUTH DAILY ACTIVE 8) Non-VA ZINC (FROM SULFATE) CAP,ORAL 25MG MOUTH EVERY ACTIVE EVENING 20 Total Medications ALLERGIES: ATORVASTATIN, CLOPIDOGREL, PENICILLIN PHYSICAL EXAM: VITAL SIGNS Measurement DT TEMP PULSE RESP BP HT WT F(C) IN(CM) LB(KG)[BMI] ---- ----- ---- -- ------ 05/10/2024 07:54 98.1(36.7) 99 132/75 71.0(180) 203(92.1)[28*] Measurement DT CVP POx CG CMH20(MMHG) (L/MIN)(%) IN(CM) ------ 05/10/2024 07:54 99 Measurement DT Pain ---- 05/10/2024 07:54 0 MOBILITY: ambulating WITHOUT assistive device. General: Well-developed , well-nourished MALE in no acute distress. HEENT: Atraumatic, Normocephalic, no icterus. Nose is patent. Moist mucous membranes. No oral lesions. Neck- Supple, could not appreciate JVD, carotid bruit,thyromegaly, or lymphadenopathy. Heart: RRR, Normal S1 and S2, no S4, no M/G/R. Lungs: Clear to auscultation, no rales, no wheezes, no rhonchi Abdomen: Nontender, nondistended, normal bowel sounds Extremities: No edema. normal pulses Musculoskeletal: No joint swelling, erythema or warmth. Neurologic: Alert and oriented times 3, no new focal neurological deficits. Skin: Warm and dry, no new lesions. PSYCH: Appropriate mood and behavior. Interacting appropriately. IMAGES: No recent studies. LABS: 06/02/2023 08:42 BLOOD !! GLYCOHEMOGLOBIN 6.7 H % 4.4 - 6.4 06/29/2022 08:43 BLOOD !! GLYCOHEMOGLOBIN 7.0 H % 4.4 - 6.4 07/13/2021 14:11 BLOOD !! GLYCOHEMOGLOBIN 7.2 H % 4.4 - 6.4 12/31/2018 09:13 BLOOD !! GLYCOHEMOGLOBIN 6.8 H % 4.4 - 6.4 06/02/2023 08:50 URINE MICROALBUMIN ELIZABETH 652.3 H mg/L 0.0 - 30.0 06/02/2023 08:42 PLASMA!! CHOLESTEROL 219 H mg/dL 0 - 199 06/02/2023 08:42 PLASMA!! TRIGLYCERIDE 324 H mg/dL 0 - 149 06/02/2023 08:42 PLASMA!! HDL CHOLESTEROL 34 L mg/dL 40 - 69 06/02/2023 08:42 PLASMA!! DIRECT LDL CHOL. 74 mg/dL 0 - 100 PANEL 2 Zehra. date TOT PRO ALBUMIN SGOT SGPT Z ALK PHZ DIRECTZ TOTAL 06/02/23 08:42 7.9 5.0 23 23 89 0.9 PSA:12.409 ng/mL H (06/02/2023 08:42) URINALYSIS Zehra. date Z SPECIFZ URINE Z URINE Z URINE Z URINE Z URINE Z URINE 06/02/23 08:50 1.018 150 H Light Y Clear 5.5 70 H Negativ URINALYSIS Zehra. date Z URINE Z URINE Z URINE Z URINE Z LEUK. 06/02/23 08:50 Negativ Negativ Negativ Normal Negativ 06/02/2023 08:42 BLOOD WBC 7.2 K/cmm 5.0 - 10.0 06/02/2023 08:42 BLOOD RBC 4.83 M/cmm 4.6 - 6.2 06/02/2023 08:42 BLOOD HGB 14.8 g/dL 14.0 - 18.0 06/02/2023 08:42 BLOOD HCT 44.8 % 42.0 - 52.0 06/02/2023 08:42 BLOOD MCV 92.8 fL 80.0 - 94.0 06/02/2023 08:42 BLOOD MCH 30.6 pg 27.0 - 31.0 06/02/2023 08:42 BLOOD MCHC 33.0 g/dL 32.0 - 36.0 06/02/2023 08:42 BLOOD PLT 146 L K/cmm 150 - 450 06/02/2023 08:42 BLOOD MPV 9.7 fL 9.0 - 13.1 06/02/2023 08:42 BLOOD RDW 15.5 % 11.0 - 16.0 06/02/2023 08:42 BLOOD NRBC 0.0 % 0.0 - 0.0 06/02/2023 08:50 URINE CREATININE 126.2 mg/dL 06/02/2023 08:42 PLASMA!! UREA NITROGEN 30 H mg/dL 9 - 06/02/2023 08:42 PLASMA!! eGFR (CKD-EPI) 29 SEE EVAL 06/02/2023 08:42 PLASMA!! GLUCOSE 151 H mg/dL 74 - 100 06/02/2023 08:42 PLASMA!! SODIUM 139 mmol/L 136 - 145 06/02/2023 08:42 PLASMA!! POTASSIUM 4.8 mmol/L 3.5 - 5.1 06/02/2023 08:42 PLASMA!! CHLORIDE 108 H mmol/L 98 - 107 06/02/2023 08:42 PLASMA!! CO2 23 mmol/L 22 - 29 06/02/2023 08:42 PLASMA!! CALCIUM 10.0 mg/dL 8.4 - 10.2 06/02/2023 08:42 PLASMA!! ANION GAP 8.0 mEq/L 3 - 19 08/27/2021 09:39 PLASMA eGFR (TO 09-24-21) 29 SEE EVAL ASSESSMENT AND PLAN: - Chronic obstructive lung disease/tobacco use- still smokes < ppd . Stable. Continue: FLUTICAS 250/SALMETEROL 50 INHL DISK 60 INHALE 1 INHALATION BY MOUTH TWICE A DAY. - Diabetes mellitus- controlled per 06/02/2024 A1c Takes no RXs for his diabetic nephropathy- The carvidolol may help some. Continue: GLIPIZIDE 5MG TAB TAKE ONE TABLET BY MOUTH EVERY DAY EMPAGLIFLOZIN 25MG TAB TAKE ONE TABLET BY MOUTH EVERY MORNING - Hyperlipidemia- uncontrolled per 06/02/2024 labs. Continue: ROSUVASTATIN CA 20MG TAB TAKE ONE-HALF TABLET BY MOUTH AT BEDTIME low fat and low cholesterol diet encouraged. Monitor FLP and LFTs. - Chronic Kidney Disease, Unspecified Order labs and renal ultrasound then consult renal. - Coronary artery disease/-PPM/- heart cath x 7 times with several stents to unknown coronaries- stable. Continue F/U [facility] Cardiology- Dr Frederick at [facility]. Continue: ROSUVASTATIN CA 20MG TAB TAKE ONE-HALF TABLET BY MOUTH AT BEDTIME Non-VA ASPIRIN 81MG EC TAB 81MG MOUTH EVERY DAY . Does not have a plan to stop smoking anytime soon. - Gastroesophageal reflux disease- controlled. Continue PANTOPRAZOLE NA 40MG EC TAB TAKE ONE TABLET BY MOUTH EVERY DAY. - Low back pain -back surgery 25 years ago due to a ruptured disc . No radation - stable. No complaints today. 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 Continue: HYDROCODONE 7.5/ACETAMINOPHEN 325MG TAB TAKE 1 TABLET BY MOUTH THREE TIMES A DAY - Hearing loss - encouraged to wear his hearing aids... - Peripheral Vascular Disease- stable. Is taking ROSUVASTATIN CA 20MG TAB TAKE ONE-HALF TABLET BY MOUTH AT BEDTIME Non-VA ASPIRIN 81MG EC TAB 81MG MOUTH EVERY DAY. Has no plan to stop smoking anytime soon. - Hypertension - controlled. Continue: AMLODIPINE BESYLATE 10MG TAB TAKE ONE TABLET BY MOUTH DAILY CARVEDILOL 25MG TAB TAKE ONE-HALF TABLET BY MOUTH TWICE A DAY ISOSORBIDE MONONITRATE 30MG SA TAB TAKE ONE TABLET BY MOUTH DAILY - Constipation- controlled . Continue: Non-VA POLYETHYLENE GLYCOL 3350 ORAL PWDR 1 HEAPING TABLESPOONFUL IN LIQUID MOUTH DAILY. Medication Reconciliation: Reviewed and reconciled medication list with patient and/or caregiver: _x__ No discrepancies were found, ___ Discrepancies were corrected or sent to the ordering provider to correct The updated medication list was given to the patient/caregiver by: ___Patient declines med list, _x__Handing physical copy at the end of visit, ___Mail, ___[facility] ___Patient does not take any meds ___ New pt presented with his/her list of meds. Pt instructed to watch for adverse reaction to therapy and if allergy suspected then discontinue and present immediately to ER. Potential side effects/adverse events associated with prescription medication including potential drug interactions were discussed and all questions answered. Patient expressed understanding of information presented in this note. -LABWORK: Today's labs: (x )FASTING ( )NON-FASTING: See orders ( ) NO LABS WITH THIS VISIT ( ) RETURN FOR LABS: -CONSULTS ENTERED FROM TODAYS VISIT:None -CLERICAL ORDERS: RNA APPOINTMENT:NA SCHEDULE THE FOLLOWING: RECALL:04/21/2025 ( ) Fasting labs on RTC ( ) Non-fasting labs on RTC: To be determined (x ) No labs on RTC Follow up:11 months and PRN The /caregiver voiced understanding of topics covered/discussed in today's visit. All questions were answered, and the patient/caregiver voiced understanding and agreement. I spent 39 min today reviewing last visit notes, recent lab results, recent XRs reports, [facility] imaging for any recent hospitilizations or ER visits, [facility] consults, Consults reports , evaluating and managing the patient's acute and chronic conditions, and documenting clinical information in health record. _x_ Preparing to see patient (tests, reviewing last progress note) _x_ Perform medically necessary Exam _x_ Order tests, procedures, medications _x_ Documenting clinical info in health record _x_ Independently interpreting results and communicating results to patient/caregiver _X__ Refer and/or communicate with other providers regarding patient _X__ Obtain/review separately obtained history _X_ Placed consult SYSTEM GENERATED CLINICAL REMINDERS: PAVE Foot Check: A complete foot check was completed at this encounter. VISUAL INSPECTION: Includes inspection for skin breaks, deformity, erythema, trauma, pallor on elevation, dependent rubor, nail deformities, extensive callus and pitting edema. Visual exam results: Normal PEDAL PULSES: Includes palpation of dorsalis and posterior tibial pulses and signs/symptoms of vascular compromise like pain, pallor, parasthesia or paralysis. Present (even if diminished) SENSORY CHECK: Includes 10 gram Monofilament (Welda-Renetta) test of sensation. Intact (Greater than or equal to 80% of sites checked) Abnormal (Less than 80% of sites checked): Intact LOW-RISK: LOW RISK INFORMATION PROVIDED: 1. Advised patient not to walk barefoot. 2. Explained the importance of daily foot checks for changes. 3. Stressed the importance of daily foot hygiene, including bathing and complete drying. Tobacco Use Screening: The patient uses tobacco every day. The patient uses tobacco within 30 minutes of waking up. The patient has been smoking or using tobacco for thirty years or more. Patient was advised to quit smoking and/or using tobacco. Discussion with patient included: - Quitting smoking or tobacco use is one of the most important things you can do to protect and improve your health and [place] has the resources to support you. - Set a quit date when you are ready to quit. - Get support from your family and friends. - Review any past quit attempts- What helped? What didn't? - On the day you plan to quit, get rid of all cigarettes and tobacco products from your home, car or work. - Using a combination of behavioral counseling or other support strategies and FDA-approved cessation medications is the most effective way to ensure success in quitting. Patient was offered Behavioral Counseling and other support strategies to assist with quitting. Discussion with patient included: - Behavioral counseling or other support strategies greatly increases your chances of successfully quitting smoking or tobacco use by helping you develop a quit plan and providing support and other strategies to make behavioral changes to help you quit. - [place] has a number of behavioral counseling options to help you with quitting, including: * Provide information about the facility smoking or tobacco use treatment options or clinics * [place]'s national quitline, 1-126-JGQE-VET, with counseling available Monday-Monday The patient was not interested in receiving additional information about how to use the treatment options discussed. Patient was offered FDA-approved cessation medications. Discussion with patient included: - Medications for Nicotine replacement therapy such as the patch, gum or lozenge, and other medications such as varenicline or bupropion, can play an important role in the initial weeks and months after you quit smoking or tobacco use. - Medications help with cravings and withdrawal symptoms and they greatly increase your chances of successfully quitting. The patient was not interested in a prescription for tobacco cessation medications. Herpes Zoster (Shingles) Vaccine: Prior Herpes Zoster vaccination The patient has been vaccinated in the past but written documentation of vaccination is not available today. Patient instructed to obtain a written record of the prior vaccine and bring it to the next appointment. DICK-DM HbA1c not done: Glycohemoglobin (HgbA1c) ordered /echo/ FAHAD BLOCK MD Signed: 05/10/2024 21:15 05/13/2024 ADDENDUM STATUS: COMPLETED Left HIPAA compliant voicemail message x 1 to return call to clinic. /echo/ MJ BOBBY,RN PC IMITATION [employer] MECH[employer]IC Signed: 05/13/2024 09:35 FAHAD BLOCK [facility] May 10, 2024 08:02 AM PRIMARY CARE NOTE: LOCAL TITLE: PC PROGRESS NOTE STANDARD TITLE: PRIMARY CARE NOTE DATE OF NOTE: MAY 10, 2024@08:02 ENTRY DATE: MAY 10, 2024@08:02:20 AUTHOR: FAHAD BLOCK EXP COSIGNER: URGENCY: STATUS: COMPLETED PC PROGRESS NOTE Has ADDENDA ID: 88 year old MALE Chief Complaint: Ongoing management of active/chronic medical problems PC-Nurse's note is reviewed. HPI/PROBLEM LIST: Patient is a 88 year old MALE here today to establish treatment of active/chronic medical problems, and F/U test results. Patient denies any recent Hospitalizations, ER visits or surgeries in last 90 days. NON-[place] Provider- -Signals Collector/Analyst Dr Jl Frederick [facility] Cardiology [facility]. - Primary Care Dr is Dr Raul Capone in [place]. NON-[place] Pharmacy- NA - Chronic obstructive lung disease/tobacco use- still smokes < ppd . Smoked ppd since age 19 , quit in between x 7 years. Brathing is ok using: FLUTICAS 250/SALMETEROL 50 INHL DISK 60 INHALE 1 INHALATION BY MOUTH TWICE A DAY FOR BREATHING. - Diabetes mellitus- controlled per 06/02/2024 A1c 06/02/2023 08:42 BLOOD !! GLYCOHEMOGLOBIN 6.7 H % 4.4 - 6.4 06/02/2023 08:50 URINE MICROALBUMIN ELIZABETH 652.3 H mg/L 0.0 - 30.0 Takes no RXs for his diabetic nephropathy- The carvidolol may help some. Is taking: GLIPIZIDE 5MG TAB TAKE ONE TABLET BY MOUTH EVERY DAY EMPAGLIFLOZIN 25MG TAB TAKE ONE TABLET BY MOUTH EVERY MORNING - Hyperlipidemia- uncontrolled per 06/02/2024 labs. Is taking: ROSUVASTATIN CA 20MG TAB TAKE ONE-HALF TABLET BY MOUTH AT BEDTIME - Chronic Kidney Disease, Unspecified 06/02/2023 08:42 PLASMA!! CREATININE 2.19 H mg/dL 0.72 -.25 does not F/U renal- order labs and renal ultrasound then consult renal. - Coronary artery disease/-PPM/- heart cath x 7 times with several stents to unknown coronaries- Denies chest pain, palpitation, syncope, or leg edema. F/U [facility] Cardiology- Dr Frederick at [facility]. Is taking: ROSUVASTATIN CA 20MG TAB TAKE ONE-HALF TABLET BY MOUTH AT BEDTIME Non-VA ASPIRIN 81MG EC TAB 81MG MOUTH EVERY DAY . Still smokes. - Gastroesophageal reflux disease- Denies dysphagia, weight loss or melena. Controlled taking: PANTOPRAZOLE NA 40MG EC TAB TAKE ONE TABLET BY MOUTH EVERY DAY. - Low back pain -back surgery 25 years ago due to a ruptured disc . No radation - No pt, chiropractor, or injections. stable does not bother him much these day. 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 Fairly controlled taking HYDROCODONE 7.5/ACETAMINOPHEN 325MG TAB TAKE 1 TABLET BY MOUTH THREE TIMES A DAY - Hearing loss - dose not wear his bilateral hearing aids all the time. - Peripheral Vascular Disease- No stenting. stable. Is taking ROSUVASTATIN CA 20MG TAB TAKE ONE-HALF TABLET BY MOUTH AT BEDTIME Non-VA ASPIRIN 81MG EC TAB 81MG MOUTH EVERY DAY. still smokes at < ppd. - Hypertension - home bp is good . BP in the clinic today is 132/75. 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 - Constipation- controlled takig : Non-VA POLYETHYLENE GLYCOL 3350 ORAL PWDR 1 HEAPING TABLESPOONFUL IN LIQUID MOUTH DAILY. Denies side effects. HEALTH CARE MAINTENANCE: .SCREENING- - LDCT Screening for Lung Cancer: Not indicated due to age group. - AAA Screening : h/o AAA , s/p repair by [facility] cardiology group. - Screening for colon cancer: Colonoscope x2 lifel time ;Had on a few years ago outside the [place]. - PSA:12.409 ng/mL ( 06/02/23 ) H - Screening for HIV:No records found. - Screening for HCV:No records found. . IM - Immunizations ADMINISTERED COVID-19 (PFIZER), MRNA, LNP-S, * 1 06/29/2022 [place]* COVID-19 (PFIZER), MRNA, LNP-S, * 3 03/10/2021 [place] * COVID-19 (PFIZER), MRNA, LNP-S, * 2 08/01/2020 [place]* COVID-19 (PFIZER), MRNA, LNP-S, * 1 07/11/2020 [place]* COVID-19 (PFIZER), MRNA, LNP-S, * 4 11/26/2021 [place]* INFLUENZA, HIGH-DOSE, TRIVALENT,* 2 05/04/2024 [facility] PNEUMOCOCCAL, UNSPECIFIED FORMUL* No Site TD(ADULT) UNSPECIFIED FORMULATION 06/26/2009 No Site TD(ADULT) UNSPECIFIED FORMULATION No Site TD(ADULT) UNSPECIFIED FORMULATION [facility] * TD(ADULT) UNSPECIFIED FORMULATION No Site TDAP 1 09/09/2020 [facility] REFUSED ======= COVID-19 (MODERNA), MRNA, LNP-S,* 05/10/2024 [place]* PNEUMOCOCCAL CONJUGATE, UNSPECIF* 06/29/2022 [place]* ZOSTER RECOMBINANT 06/29/2022 [place]* ST - Skin Tests No data available: No Hep A immunization history found. No Hep B immunization history found. Active problems - Computerized Problem List is [...] ischemic heart disease 18. Hypertension (SNOMED CT [id number]) 19. Other and unspecified hyperlipidemia 20. Aneurysm, Aorta, Abdominal 4.5CM2 02/25 List of active problems are reviewed with patient and updated. SURGICAL HISTORY: 10/05/2023 LEFT EYE EXTRACAPSULAR CATARACT (COMPLETED) EXTRACTION WITH POSTERIOR CHAMBER INTRAOCULAR LENS IMPLANT 08/10/2023 RIGHT EYE EXTRACAPSULAR CATARACT (COMPLETED) EXTRACTION WITH POSTERIOR CHAMBER INTRAOCULAR LENS IMPLANT L-spine surgery L4-L5 disectomy 25 years ago - Neri Reyes- affilitaed by now. FAMILY HISTORY Father- 75 yo , had lymph node cancer Mother- 85 yo, had :heart condition . Siblings- 3 brothers, 2 . Children- 2 daughters and 2 sons. 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 MARITAL STATUS - . lives with daughter TOBACCO: smokes 1/2ppd ALCOHOL: None ILLICIT DRUGS: Denies ROS: A 10 point ROS was completed with patient and is negative with exception of what was noted above in History of Present Illness and Past Medical History sections. DS - Disabilities Eligibility: NSC VERIFIED MEDICATIONS: Active and Recently Outpatient Medications (including Supplies): Active Outpatient Medications Status 1) AMLODIPINE BESYLATE 10MG TAB TAKE ONE TABLET BY MOUTH ACTIVE DAILY FOR BLOOD PRESSURE/HEART - DO NOT DRINK GRAPEFRUIT JUICE WHILE ON THIS DRUG 2) CARVEDILOL 25MG TAB TAKE ONE-HALF TABLET BY MOUTH ACTIVE TWICE A DAY FOR HEART 3) CHOLECALCIF 25MCG (D3-1,000UNIT) TAB TAKE ONE TABLET ACTIVE BY MOUTH DAILY FOR VITAMIN D SUPPLEMENT 4) EMPAGLIFLOZIN 25MG TAB TAKE ONE TABLET BY MOUTH EVERY ACTIVE MORNING FOR BLOOD SUGAR 5) FLUTICAS 250/SALMETEROL 50 INHL DISK 60 INHALE 1 ACTIVE INHALATION BY MOUTH TWICE A DAY FOR BREATHING -RINSE MOUTH AND SPIT AFTER EACH USE 6) GLIPIZIDE 5MG TAB TAKE ONE TABLET BY MOUTH EVERY DAY ACTIVE FOR DIABETES 7) HYDROCODONE 7.5/ACETAMINOPHEN 325MG TAB TAKE 1 TABLET ACTIVE BY MOUTH THREE TIMES A DAY FOR PAIN 8) ISOSORBIDE MONONITRATE 30MG SA TAB TAKE ONE TABLET BY ACTIVE MOUTH DAILY FOR HEART 9) PANTOPRAZOLE NA 40MG EC TAB TAKE ONE TABLET BY MOUTH ACTIVE EVERY DAY 30 MINUTES BEFORE A MEAL FOR STOMACH. TAKE ON AN EMPTY STOMACH. 10) ROSUVASTATIN CA 20MG TAB TAKE ONE-HALF TABLET BY ACTIVE MOUTH AT BEDTIME FOR CHOLESTEROL Inactive Outpatient Medications Status 1) DEXTRAN 70/GLYCER 0.2%/HYPROMEL 0.3% OPH PUT 1 DROP IN BOTH EYES TWICE A DAY FOR DRY EYES 2) HYDROCODONE 7.5/ACETAMINOPHEN 325MG TAB TAKE 1 TABLET BY MOUTH THREE TIMES A DAY FOR PAIN Active Non-VA Medications Status 1) Non-VA ASCORBIC ACID 500MG TAB 1000MG MOUTH DAILY ACTIVE 2) Non-VA ASPIRIN 81MG EC TAB 81MG MOUTH EVERY DAY ACTIVE 3) Non-VA FISH OIL 1000MG (500MG DHA/EPA) CAP 2000MG ACTIVE MOUTH TWICE A DAY 4) Non-VA MULTIVITAMIN/MINERALS THERAPEUT CAP/TAB 1 ACTIVE TABLET MOUTH DAILY 5) Non-VA NIACIN (SLO-NIACIN) 500MG TAB,SA 1000MG MOUTH ACTIVE AT BEDTIME 6) Non-VA POLYETHYLENE GLYCOL 3350 ORAL PWDR 1 HEAPING ACTIVE TABLESPOONFUL IN LIQUID MOUTH DAILY 7) Non-VA QUERCETIN CAP/TAB 1 CAP/TAB MOUTH DAILY ACTIVE 8) Non-VA ZINC (FROM SULFATE) CAP,ORAL 25MG MOUTH EVERY ACTIVE EVENING 20 Total Medications ALLERGIES: ATORVASTATIN, CLOPIDOGREL, PENICILLIN PHYSICAL EXAM: VITAL SIGNS Measurement DT TEMP PULSE RESP BP HT WT F(C) IN(CM) LB(KG)[BMI] ---- ----- ---- -- ------ 05/10/2024 07:54 98.1(36.7) 99 132/75 71.0(180) 203(92.1)[28*] Measurement DT CVP POx CG CMH20(MMHG) (L/MIN)(%) IN(CM) ------ 05/10/2024 07:54 99 Measurement DT Pain ---- 05/10/2024 07:54 0 MOBILITY: ambulating WITHOUT assistive device. General: Well-developed , well-nourished MALE in no acute distress. HEENT: Atraumatic, Normocephalic, no icterus. Nose is patent. Moist mucous membranes. No oral lesions. Neck- Supple, could not appreciate JVD, carotid bruit,thyromegaly, or lymphadenopathy. Heart: RRR, Normal S1 and S2, no S4, no M/G/R. Lungs: Clear to auscultation, no rales, no wheezes, no rhonchi Abdomen: Nontender, nondistended, normal bowel sounds Extremities: No edema. normal pulses Musculoskeletal: No joint swelling, erythema or warmth. Neurologic: Alert and oriented times 3, no new focal neurological deficits. Skin: Warm and dry, no new lesions. PSYCH: Appropriate mood and behavior. Interacting appropriately. IMAGES: No recent studies. LABS: 06/02/2023 08:42 BLOOD !! GLYCOHEMOGLOBIN 6.7 H % 4.4 - 6.4 06/29/2022 08:43 BLOOD !! GLYCOHEMOGLOBIN 7.0 H % 4.4 - 6.4 07/13/2021 14:11 BLOOD !! GLYCOHEMOGLOBIN 7.2 H % 4.4 - 6.4 12/31/2018 09:13 BLOOD !! GLYCOHEMOGLOBIN 6.8 H % 4.4 - 6.4 06/02/2023 08:50 URINE MICROALBUMIN ELIZABETH 652.3 H mg/L 0.0 - 30.0 06/02/2023 08:42 PLASMA!! CHOLESTEROL 219 H mg/dL 0 - 199 06/02/2023 08:42 PLASMA!! TRIGLYCERIDE 324 H mg/dL 0 - 149 06/02/2023 08:42 PLASMA!! HDL CHOLESTEROL 34 L mg/dL 40 - 69 06/02/2023 08:42 PLASMA!! DIRECT LDL CHOL. 74 mg/dL 0 - 100 PANEL 2 Zehra. date TOT PRO ALBUMIN SGOT SGPT Z ALK PHZ DIRECTZ TOTAL 06/02/23 08:42 7.9 5.0 23 23 89 0.9 PSA:12.409 ng/mL H (06/02/2023 08:42) URINALYSIS Zehra. date Z SPECIFZ URINE Z URINE Z URINE Z URINE Z URINE Z URINE 06/02/23 08:50 1.018 150 H Light Y Clear 5.5 70 H Negativ URINALYSIS Zehra. date Z URINE Z URINE Z URINE Z URINE Z LEUK. 06/02/23 08:50 Negativ Negativ Negativ Normal Negativ 06/02/2023 08:42 BLOOD WBC 7.2 K/cmm 5.0 - 10.0 06/02/2023 08:42 BLOOD RBC 4.83 M/cmm 4.6 - 6.2 06/02/2023 08:42 BLOOD HGB 14.8 g/dL 14.0 - 18.0 06/02/2023 08:42 BLOOD HCT 44.8 % 42.0 - 52.0 06/02/2023 08:42 BLOOD MCV 92.8 fL 80.0 - 94.0 06/02/2023 08:42 BLOOD MCH 30.6 pg 27.0 - 31.0 06/02/2023 08:42 BLOOD MCHC 33.0 g/dL 32.0 - 36.0 06/02/2023 08:42 BLOOD PLT 146 L K/cmm 150 - 450 06/02/2023 08:42 BLOOD MPV 9.7 fL 9.0 - 13.1 06/02/2023 08:42 BLOOD RDW 15.5 % 11.0 - 16.0 06/02/2023 08:42 BLOOD NRBC 0.0 % 0.0 - 0.0 06/02/2023 08:50 URINE CREATININE 126.2 mg/dL 06/02/2023 08:42 PLASMA!! UREA NITROGEN 30 H mg/dL 9 - 06/02/2023 08:42 PLASMA!! eGFR (CKD-EPI) 29 SEE EVAL 06/02/2023 08:42 PLASMA!! GLUCOSE 151 H mg/dL 74 - 100 06/02/2023 08:42 PLASMA!! SODIUM 139 mmol/L 136 - 145 06/02/2023 08:42 PLASMA!! POTASSIUM 4.8 mmol/L 3.5 - 5.1 06/02/2023 08:42 PLASMA!! CHLORIDE 108 H mmol/L 98 - 107 06/02/2023 08:42 PLASMA!! CO2 23 mmol/L 22 - 29 06/02/2023 08:42 PLASMA!! CALCIUM 10.0 mg/dL 8.4 - 10.2 06/02/2023 08:42 PLASMA!! ANION GAP 8.0 mEq/L 3 - 19 08/27/2021 09:39 PLASMA eGFR (TO 4-22) 29 SEE EVAL ASSESSMENT AND PLAN: - Chronic obstructive lung disease/tobacco use- still smokes < ppd . Stable. Continue: FLUTICAS 250/SALMETEROL 50 INHL DISK 60 INHALE 1 INHALATION BY MOUTH TWICE A DAY. - Diabetes mellitus- controlled per 06/02/2024 A1c Takes no RXs for his diabetic nephropathy- The carvidolol may help some. Continue: GLIPIZIDE 5MG TAB TAKE ONE TABLET BY MOUTH EVERY DAY EMPAGLIFLOZIN 25MG TAB TAKE ONE TABLET BY MOUTH EVERY MORNING - Hyperlipidemia- uncontrolled per 06/02/2024 labs. Continue: ROSUVASTATIN CA 20MG TAB TAKE ONE-HALF TABLET BY MOUTH AT BEDTIME low fat and low cholesterol diet encouraged. Monitor FLP and LFTs. - Chronic Kidney Disease, Unspecified Order labs and renal ultrasound then consult renal. - Coronary artery disease/-PPM/- heart cath x 7 times with several stents to unknown coronaries- stable. Continue F/U [facility] Cardiology- Dr Frederick at [facility]. Continue: ROSUVASTATIN CA 20MG TAB TAKE ONE-HALF TABLET BY MOUTH AT BEDTIME Non-VA ASPIRIN 81MG EC TAB 81MG MOUTH EVERY DAY . Does not have a plan to stop smoking anytime soon. - Gastroesophageal reflux disease- controlled. Continue PANTOPRAZOLE NA 40MG EC TAB TAKE ONE TABLET BY MOUTH EVERY DAY. - Low back pain -back surgery 25 years ago due to a ruptured disc . No radation - stable. No complaints today. 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 Continue: HYDROCODONE 7.5/ACETAMINOPHEN 325MG TAB TAKE 1 TABLET BY MOUTH THREE TIMES A DAY - Hearing loss - encouraged to wear his hearing aids... - Peripheral Vascular Disease- stable. Is taking ROSUVASTATIN CA 20MG TAB TAKE ONE-HALF TABLET BY MOUTH AT BEDTIME Non-VA ASPIRIN 81MG EC TAB 81MG MOUTH EVERY DAY. Has no plan to stop smoking anytime soon. - Hypertension - controlled. Continue: AMLODIPINE BESYLATE 10MG TAB TAKE ONE TABLET BY MOUTH DAILY CARVEDILOL 25MG TAB TAKE ONE-HALF TABLET BY MOUTH TWICE A DAY ISOSORBIDE MONONITRATE 30MG SA TAB TAKE ONE TABLET BY MOUTH DAILY - Constipation- controlled . Continue: Non-VA POLYETHYLENE GLYCOL 3350 ORAL PWDR 1 HEAPING TABLESPOONFUL IN LIQUID MOUTH DAILY. Medication Reconciliation: Reviewed and reconciled medication list with patient and/or caregiver: _x__ No discrepancies were found, ___ Discrepancies were corrected or sent to the ordering provider to correct The updated medication list was given to the patient/caregiver by: ___Patient declines med list, _x__Handing physical copy at the end of visit, ___Mail, ___[facility] ___Patient does not take any meds ___ New pt presented with his/her list of meds. Pt instructed to watch for adverse reaction to therapy and if allergy suspected then discontinue and present immediately to ER. Potential side effects/adverse events associated with prescription medication including potential drug interactions were discussed and all questions answered. Patient expressed understanding of information presented in this note. -LABWORK: Today's labs: (x )FASTING ( )NON-FASTING: See orders ( ) NO LABS WITH THIS VISIT ( ) RETURN FOR LABS: -CONSULTS ENTERED FROM TODAYS VISIT:None -CLERICAL ORDERS: RNA APPOINTMENT:NA SCHEDULE THE FOLLOWING: RECALL:04/21/2025 ( ) Fasting labs on RTC ( ) Non-fasting labs on RTC: To be determined (x ) No labs on RTC Follow up:11 months and PRN The /caregiver voiced understanding of topics covered/discussed in today's visit. All questions were answered, and the patient/caregiver voiced understanding and agreement. I spent 39 min today reviewing last visit notes, recent lab results, recent XRs reports, [facility] imaging for any recent hospitilizations or ER visits, [facility] consults, Consults reports , evaluating and managing the patient's acute and chronic conditions, and documenting clinical information in health record. _x_ Preparing to see patient (tests, reviewing last progress note) _x_ Perform medically necessary Exam _x_ Order tests, procedures, medications _x_ Documenting clinical info in health record _x_ Independently interpreting results and communicating results to patient/caregiver _X__ Refer and/or communicate with other providers regarding patient _X__ Obtain/review separately obtained history _X_ Placed consult SYSTEM GENERATED CLINICAL REMINDERS: PAVE Foot Check: A complete foot check was completed at this encounter. VISUAL INSPECTION: Includes inspection for skin breaks, deformity, erythema, trauma, pallor on elevation, dependent rubor, nail deformities, extensive callus and pitting edema. Visual exam results: Normal PEDAL PULSES: Includes palpation of dorsalis and posterior tibial pulses and signs/symptoms of vascular compromise like pain, pallor, parasthesia or paralysis. Present (even if diminished) SENSORY CHECK: Includes 10 gram Monofilament (Welda-Renetta) test of sensation. Intact (Greater than or equal to 80% of sites checked) Abnormal (Less than 80% of sites checked): Intact LOW-RISK: LOW RISK INFORMATION PROVIDED: 1. Advised patient not to walk barefoot. 2. Explained the importance of daily foot checks for changes. 3. Stressed the importance of daily foot hygiene, including bathing and complete drying. Tobacco Use Screening: The patient uses tobacco every day. The patient uses tobacco within 30 minutes of waking up. The patient has been smoking or using tobacco for thirty years or more. Patient was advised to quit smoking and/or using tobacco. Discussion with patient included: - Quitting smoking or tobacco use is one of the most important things you can do to protect and improve your health and [place] has the resources to support you. - Set a quit date when you are ready to quit. - Get support from your family and friends. - Review any past quit attempts- What helped? What didn't? - On the day you plan to quit, get rid of all cigarettes and tobacco products from your home, car or work. - Using a combination of behavioral counseling or other support strategies and FDA-approved cessation medications is the most effective way to ensure success in quitting. Patient was offered Behavioral Counseling and other support strategies to assist with quitting. Discussion with patient included: - Behavioral counseling or other support strategies greatly increases your chances of successfully quitting smoking or tobacco use by helping you develop a quit plan and providing support and other strategies to make behavioral changes to help you quit. - [place] has a number of behavioral counseling options to help you with quitting, including: * Provide information about the facility smoking or tobacco use treatment options or clinics * [place]'s national quitline, 7-763-HDJA-VET, with counseling available Monday-Monday The patient was not interested in receiving additional information about how to use the treatment options discussed. Patient was offered FDA-approved cessation medications. Discussion with patient included: - Medications for Nicotine replacement therapy such as the patch, gum or lozenge, and other medications such as varenicline or bupropion, can play an important role in the initial weeks and months after you quit smoking or tobacco use. - Medications help with cravings and withdrawal symptoms and they greatly increase your chances of successfully quitting. The patient was not interested in a prescription for tobacco cessation medications. Herpes Zoster (Shingles) Vaccine: Prior Herpes Zoster vaccination The patient has been vaccinated in the past but written documentation of vaccination is not available today. Patient instructed to obtain a written record of the prior vaccine and bring it to the next appointment. DICK-DM HbA1c not done: Glycohemoglobin (HgbA1c) ordered /tiffanie BLOCK MD Signed: 05/10/2024 21:15 05/10/2024 ADDENDUM STATUS: COMPLETED Please let pt know that his labs submitted on 05/10/2024 showed: His diabetes is fairly controlled. NO change to his dm meds is rec. Diabetic nephropathy is not controlled and untreated. Rec low dose lisinopril 5 mg po daily if agreeable. Protein in the urine noted since 2021 - in the range of 30-100 , was 30 on 05/10/2024. Multifactorial. Will defer that to renal consult . His cholesterol and triglycerides are uncontrolled. rec to increase his rosuvastatin to 20 mg po daily if agreeable. Worsening CKD - A consult to nephrology is placed. Rec to avoid all NSAIDs, low salt diet , dm and htn control also rec. His CALCIUM is slightly elevated for which additional labs are ordered. His B12 level is elevated- rec to hold if taking any b12 Thank you. /tiffanie BLOCK MD Signed: 05/10/2024 22:45 Receipt Acknowledged By: 05/14/2024 12:25 /JM Brandt,RN [facility] [employer] [employer] 05/13/2024 ADDENDUM STATUS: COMPLETED Left HIPAA compliant voicemail message x 1 to return call to clinic. /MJ Brandt,HORACIO [facility] [employer] [employer] Signed: 05/13/2024 09:35 05/14/2024 ADDENDUM STATUS: COMPLETED SEE PC CARE MANAGEMENT NOTE 05/14/24 /MJ Brandt,RN [employer] Signed: 05/14/2024 12:25 05/24/2024 ADDENDUM STATUS: COMPLETED Please let pt know that his labs submitted on 05/17/2024 showed: PTH elevated and phosphus elevated for which he needs to f/u nephrology. His renal u/s showed simple renal cyst. Thank you. /tiffanie BLOCK MD Signed: 05/24/2024 22:46 Receipt Acknowledged By: 05/28/2024 12:50 /MJ Brandt,RN [employer] 05/27/2024 ADDENDUM STATUS: COMPLETED Left HIPAA compliant voicemail message x 1 to return call to clinic. /MJ Brandt,RN [employer] Signed: 05/27/2024 10:34 05/27/2024 ADDENDUM STATUS: COMPLETED Pt returning your call thank you. PH: v/antonio Smith /echo/ DAWN MERCADO MSA Signed: 05/27/2024 11:14 Receipt Acknowledged By: 05/27/2024 11:34 /MJ Brandt,RN [employer] 05/28/2024 ADDENDUM STATUS: COMPLETED SEE PC CARE MANAGEMENT NOTE 05/28/24 /MJ Brandt,RN PC [employer]IC Signed: 05/28/2024 12:50 FAHAD BLOCK [facility] May 10, 2024 07:55 AM PRIMARY CARE NURSI NG NOTE: LOCAL TITLE: [facility]/night time babysitter Note STANDARD TITLE: PRIMARY CARE NURSING NOTE DATE OF NOTE: MAY 10, 2024@07:55 ENTRY DATE: MAY 10, 2024@07:55:52 AUTHOR: DAWN PINEDAER: URGENCY: STATUS: COMPLETED The patient was given a list of his current medications, instructed to review and discuss any changes or problems with their provider. Patient advised to carry a list of current medications and any allergies with them in the event of emergency situations. Yes - [facility]/Caregiver verbalized understanding of topics discussed and education provided Provider notified of elevated B/P >/= 140/90. Not Applicable COVID-19 Immunization: Refused Moderna Monovalent COVID-19 vaccine Immunization: COVID-19 (MODERNA), MRNA, LNP-S, PF, 50 MCG/0.5 ML (AGES 12+ YEARS) Refusal Reason: PATIENT DECISION Patient refuses all immunization(s) in the COVID-19 group Date Documented: 05/10/24 07:56 Alcohol Use Screen (AUDIT-C): Alcohol Screen: SCREEN FOR ALCOHOL (AUDIT-C) An alcohol screening test (AUDIT-C) was negative (score=0). 1. How often did you have a drink containing alcohol in the past year? Consider a drink to be a 12 ounce can or bottle of regular beer, 8 ounces of malt liquor, a 5 ounce glass of table wine, or a 1.5 ounce shot of liquor (like scotch, gin, or vodka). Never 2. How many drinks containing alcohol did you have on a typical day when you were drinking in the past year? Response not required due to responses to other questions. 3. How often did you have six or more drinks on one occasion in the past year? Response not required due to responses to other questions. Depression Screening: Perform PHQ-2 A PHQ-2 screen was performed. The score was 0 which is a negative screen for depression. Over the past two weeks, how often have you been bothered by the following problems? 1. Little interest or pleasure in doing things Not at all 2. Feeling down, depressed, or hopeless Not at all Homelessness/Food Insecurity Screen: In the past 2 months, have you been living in stable housing that you own, rent, or stay in as part of a household? Yes - Living in stable housing. Are you worried or concerned that in the next 2 months you may NOT have stable housing that you own, rent, or stay in as part of a household? No - Not worried about housing near future The [facility] reports the following: Within the past 12 months, you worried whether your food would run out before you got money to buy more. Never true Within the past 12 months, the food you bought just didn't last and you didn't have money to get more. Never true Suicide Screen: C-SSRS Screening Carver-Suicide Severity Rating Scale (C-SSRS Screener) 1. Over the past month, have you wished you were or wished you could go to sleep and not wake up? No 2. Over the past month, have you had any actual thoughts of killing yourself? No 3. Over the past month, have you been thinking about how you might do this? Response not required due to responses to other questions. 4. Over the past month, have you had these thoughts and had some intention of acting on them? Response not required due to responses to other questions. 5. Over the past month, have you started to work out or worked out the details of how to kill yourself? Response not required due to responses to other questions. 6. If yes, at any time in the past month did you intend to carry out this plan? Response not required due to responses to other questions. 7. In your lifetime, have you ever done anything, started to do anything, or prepared to do anything to end your life (for example, collected pills, obtained a gun, gave away valuables, went to the roof but didn't jump)? No 8. If YES, was this within the past 3 months? Response not required due to responses to other questions. Sexual Orientation: The patient thinks of their sexual orientation as: Straight or Heterosexual /es/ DAWN PINEDA Signed: 05/10/2024 07:57 DAWN PINEDA [facility]
--- OUTSIDE RECORDS SUMMARY | 2024-07-23 09:30 | XMS_ITS ---
Author Name [facility] [place] Organization [facility] [place] Address [address] [place] [id number] Care Team Providers Care Clarification Operator Name Role Phone FAHAD BLOCK Primary Care [...] Berg's Name Patient's Relationship to Policy Berg [facility] MEDIGAP PLAN C [place] MED-S UPP PLAN C May 26, 2016 [id number] Samara RAMIREZ OBBY PATIENT [facility] MEDICARE SUPPLEMEN SELVIN CHASTITYU CKY INDIV IDUAL Jun 26, 2008 [id number] Samara RAMIREZ OBBY PATIENT MEDICARE (WNR) MEDICARE (M) PART A Nov 24, 2001 PART A [id number] [facility] Samara RAMIREZ OBBY PATIENT MEDICARE (WNR) MEDICARE (M) PART B Nov 24, 2001 PART B [id number] [facility] [phone] Samara RAMIREZ OBBY PATIENT MEDICARE (WNR) MEDICARE (M) PART B Nov 24, 2001 PART B [id number] [facility] Samara RAMIREZ OBBY PATIENT MEDICARE (WNR) MEDICARE (M) PART A Nov 24, 2001 PART A [id number] [facility] Samara RAMIREZ OBBY PATIENT MEDICARE (WNR) MEDICARE (M) PART A Nov 24, 2001 PART A [id number] [facility] JAMESB OBBY PATIENT MEDICARE (WNR) MEDICARE (M) PART B Nov 24, 2001 PART B [id number] [facility] JAMESB OBBY PATIENT MEDICARE (WNR) MEDICARE (M) PART A Nov 24, 2001 PART A [id number] [facility] JAMESB OBBY PATIENT MEDICARE (WNR) MEDICARE (M) PART B Nov 24, 2001 PART B [id number] [id number] Samara RAMIREZ OBBRYAN PATIENT Selected Encounter This section includes the information on record at [place] for the Encounter. Date/Time Encounter Type Encounter Description Reason Provider Source Jul 23, 2024 01:30 PM OFFICE O/P EST MOD 30 MIN RENAL/NEPHROL(EXC EPT DIALYSIS) ICD-10-CM E11.21 Type 2 diabetes mellitus with diabetic nephropathy CORINE GAY Encounter Template Text not used by [place] Assessments - Encounter Diagnoses This section includes the primary and secondary diagnoses documented for the Encounter. Date/Time Primary/Secondary Diagnosis Diagnosis Name Provider Source Jul 23, 2024 02:00 PM PRIMARY Type 2 diabetes mellitus with diabetic nephropathy CORINE GAY [facility] Jul 23, 2024 02:00 PM SECONDARY Anemia in chronic kidney disease CORINE GAY [facility] Jul 23, 2024 02:00 PM SECONDARY Chronic kidney disease, stage 4 (severe) CORINE GAY [facility] Jul 23, 2024 02:00 PM SECONDARY Hypertensive chronic kidney disease w stg 1-4/unsp chr kdny CORINE GAY [facility] Jul 23, 2024 02:00 PM SECONDARY Renal osteodystrophy CORINE GAY [facility] Plan of Treatment: Future Appointments (+ 6 months) and Future Tests (+/- 45 days) The Plan of Treatment section includes future care activities for the patient from all [place] treatmentfacilities. This section includes future appointments and future orders which are active, pending or scheduled. Future Appointments This section includes appointments that were scheduled to occur 6 months from the date of the Encounter, up to a maximum of 20 appointments. The data comes from all [place] treatment facilities. Appointment Date/Time Appointment Type Appointme nt Facility Name Dec 10, 2024 07:20 AM AMBULATORY - MEDICINE [facility] Lab Results: +/- 30 days of the encounter This section includes the Chemistry and Hematology Lab Results on record with [place] for the patient. Radiology Reports and Pathology Reports are provided separately, in subsequent sections. Lab Results This section contains the Chemistry/Hematology Results that were resulted 30 days before or 30 daysafter the date of the Encounter. Date/Time Source Result Type Result - Unit Interpretation Reference Range Specimen Type Comment Jul 23, 2024 12:41 PM [facility] URINALYSIS URINE Specimen Type: URINE No comment entered. Ordering Provider: CORINE GAY Report Released Date/Time: Jun 25, 2024 10:29 AM Reporting Lab: [address] [id number] Performing Lab: [address] [phone] URINE COLOR Light Yellow Colorless-Yello w APPEARANCE Clear Clear UROBILINOGEN Normal mg/dL Normal URINE BLOOD Negative Negative URINE BILIRUBIN Negative Negative URINE KETONES Negative mg/dL Negative URINE PROTEIN 30 mg/dL H Negative-Trace URINE PH 5.5 4.5-8.0 URINE NITRITE Negative Negative URINE LEUKOCYTE EST TRACE H Negative SPECIFIC GRAVITY 1.018 1.005-1.030 URINE GLUCOSE >1000 mg/dL H Negative URINE WBC (i) 2 /[HPF] 0-3 SQUAMOUS EPITHELIAL (i) 3 /[LPF] 0-28 HYALINE CASTS (i) 1 /[LPF] 0-2 Jul 23, 2024 12:29 PM [facility] PTH INTACT ([place]) PLASMA Specimen Type: PLASMA Comment: For intraoperative testing samples drawn 10 minutes post resection should decrease >50% from the highest baseline. STAT assay time 18 minutes. Dialysis patients are typically maintained by using multiples of the reference range upper limit: this is the [place] assay, a 2nd generation intact PTH method. Hemolysis and high levels of protein can interfere. Heterophilic antibodies can interfere. Ordering Provider: CORINE GAY Report Released Date/Time: Jun 25, 2024 10:29 AM Reporting Lab: [place] [id number] Performing Lab: [place] [id number] PTH INTACT ([place]) 168.8 pg/mL H 8.7-77.1 Jul 23, 2024 12:29 PM [facility] 25-[place] VITAMIN D SERUM Specimen Typ e: SERUM Comment: The National Institutes of Health (NIH) recommendations state: <12 ng/mL - Deficient 20 - 50 ng/mL - Optimal Levels - adequate for most people. >50 ng/mL - Increased risk of hypercalciuria/other health problems - clinical correlation is required. These reference ranges represent clinical decision values rather than population-based reference values. Ordering Provider: CORINE GAY Report Released Date/Time: Jun 25, 2024 10:29 AM Reporting Lab: [place] [phone] Performing Lab: [place] [address] 25-[place] VITAMIN D 48.2 ng/mL 20.0-50.0 Jul 23, 2024 12:29 PM [facility] CBC/PLT BLOOD Specimen Type: BLOOD No comment entered. Ordering Provider: CORINE GAY Report Released Date/Time: Jun 25, 2024 10:29 AM Reporting Lab: [place] [phone] Performing Lab: [place] [phone] WBC 8.2 10*3/uL 5.0-10.0 RBC 4.81 10*6/uL 4.6-6.2 HGB 14.7 g/dL 14.0-18.0 HCT 44.4 42.0-52.0 MCV 92.3 fL 80.0-94.0 MCH 30.6 pg 27.0-31.0 MCHC 33.1 g/dL 32.0-36.0 PLT 165 10*3/uL 150-450 MPV 9.6 fL 9.0-13.1 RDW 15.9 11.0-16.0 NRBC 0.0 0.0-0.0 Jul 23, 2024 12:29 PM [facility] PANEL 4 PLASMA Specimen Type: PLASM A Comment: Estimated [...] decrease <15 G5 Kidney failure Ordering Provider: CORINE GAY Report Released Date/Time: Jun 25, 2024 10:29 AM Reporting Lab: [address] [phone] Performing Lab: [address] [phone] CREATININE 3.18 mg/dL H 0.72-1.25 UREA NITROGEN 41 mg/dL H 9-25 GLUCOSE 113 mg/dL H 74-100 SODIUM 139 mmol/L 136-145 POTASSIUM 5.1 mmol/L 3.5-5.1 CHLORIDE 113 mmol/L H 98-107 CO2 16 mmol/L L 22-29 CALCIUM 9.6 mg/dL 8.4-10.2 PHOSPHORUS 4.8 mg/dL H 2.3-4.7 ALBUMIN 5.0 g/dL 3.5-5.2 ANION GAP 10 meq/L 3-19 eGFR (CKD-EPI) Jul 08, 2024 09:05 AM [facility] DRUG SCREEN EXPANDED IN-HOUSE URINE Specimen [...] Ordering Provider: FAHAD BLOCK Report Released Date/Time: Jun 16, 2024 10:42 AM Reporting Lab: [address] [phone] Performing Lab: [address] [phone] TETRAHYDROCANNABINOL SCREEN NEG Cuto ff < 50 [...] FENTANYL SCREEN IN-HOUSE NEG Cutoff < 1 Social History: Smoking Status (Most current) and Tobacco Use (All prior to encounter date) This section includes the most current, and the historical, smoking and tobacco- related health factors from the [place] facility where the Encounter took place. Current Smoking Status This section includes the most current smoking, or tobacco-related health factor, from the [place] facility where the Encounter took place. Date/Time Current Smoking Status Comment Facil ity Aug 07, 2020 03:30 PM VA-TOBACCO USER EVERY DAY [facility] Tobacco Use History This section includes a history of the smoking, or tobacco-related health factors, that were collected on or before the date of the Encounter. The data comes from the [place] facility where the Encounter took place. 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 [facility] Aug 07, 2020 03:30 PM VA-TOBACCO USE MED NO [facility] Aug 07, 2020 03:30 PM VA-TOBACCO USE WI 30 MIN OF WAKEUP [facility] Aug 07, 2020 03:30 PM VA-TOBACCO USER EVERY DAY [facility] Sep 07, 2015 02:27 PM V9 CURRENT TOBACCO USER [facility] Sep 07, 2015 02:27 PM V9 TOBACCO OFFERED [facility] Sep 07, 2015 02:27 PM V9 TOBACCO USE-DEC LINED MEDS [facility] Dec 02, 2008 06:27 PM TOBACCO OFFERRED P T MEDS (PROVIDER) [facility] Dec 02, 2008 06:27 PM V9 CURRENT TOBACCO USER [facility] Dec 02, 2008 06:27 PM V9 TOBACCO OFFERED [facility] Sep 05, 2007 07:04 PM TOBACCO OFFERRED P T MEDS (PROVIDER) [facility] Sep 05, 2007 07:04 PM V9 CURRENT TOBACCO USER [facility] Sep 05, 2007 07:04 PM V9 TOBACCO OFFERED [facility] Aug 10, 2006 06:03 PM TOBACCO OFFERRED P T MEDS (PROVIDER) [facility] Aug 10, 2006 06:03 PM V9 CURRENT TOBACCO USER [facility] Aug 10, 2006 06:03 PM V9 TOBACCO OFFERED [facility] Feb 22, 2006 09:55 PM HF V9 SECOND TOBAC CO FOOD BEVERAGE SUPERVISOR occ. [facility] Aug 16, 2005 08:17 AM HF V9 CURRENT SMOKER SMOKES UP TO 2 PACKS/WK [facility] Aug 09, 2004 12:56 PM HF V9 CURRENT NON-SMOKER about a week ago [facility] Jul 02, 2003 07:59 AM HF V9 CURRENT NON-SMOKER 7yrs ago [facility] Apr 26, 2002 11:54 AM HF V9 CURRENT NON-SMOKER quit about 5 yrs ago. [facility] Advance Directives: All historical and current Section Date Range: From patient's date of to the date document was created. This section includes ALL of a patient's completed or amended [place] Advance and Rescinded Directives. The entries below indicate that a directive exists for the patient, but an actual copy is not included with this document. The data comes from all [place] facilities. Date Advance Directives Provider Source Oct 17, 2011 ADVANCE DIRECTIVE DISCUSSION FAHADCO DARÍO Salazar [facility] Aug 11, 2010 ADVANCE DIRECTIVE DISCUSSION FAHAD,CO LETTE Martin [facility] Jun 04, 2009 ADVANCE DIRECTIVE DISCUSSION FAHADCO DARÍO Salazar [facility] Encounter Notes: All associated encounter notes This section contains the clinical notes associated to the Encounter. Date/Time Encounter Note(s) Provider Source Jul 23, 2024 01:33 PM NEPHROLOGY PHYSICI AN NOTE: LOCAL TITLE: RENAL CLINIC PHYSICIAN NOTE STANDARD TITLE: NEPHROLOGY PHYSICIAN NOTE DATE OF NOTE: JUL 23, 2024@13:33 ENTRY DATE: JUL 23, 2024@13:33:09 AUTHOR: CORINE GAY EXP COSIGNER: URGENCY: STATUS: COMPLETED RENAL CLINIC PHYSICIAN NOTE Has ADDENDA ( ) Nursing Intake Note Reviewed Pain: 8 (07/23/2024 13:10) Reason for Visit: Physician History and Exam: 88 yo M with hx of DM for several years, CAD, s/p stent x6, has had PVD s/p aortic stent 2004, HLD and long standing CKD referred for evaluation of CKD. He has had Cr elevated for several years. He is on antihypertensive meds for several years but BP well controlled. BPs are low, no postural sx. He has claudication but was told he is not a candidate for bupass surgery. Got renal artery duplex after last visit which was negative for DONALD. Currently doing well. No problems ROS: 14 point ROS is negative except as above. PMH: Active problems - Computerized Problem List is the source for the followin. Coronary arteriosclerosis 2. Degeneration of cervical intervertebral disc 3. Chronic Kidney Disease, Unspecified 4. Tobacco Use Disorder, Continuous 5. Personal History of Colonic Polyps 6. Internal hemorrhoids without mention of complication 7. Hearing loss * 8. Peripheral Vascular Disease 9. Diabetes Mellitus Type II or unspecified 10. Osteoarthritis 11. Chronic ischemic heart disease 12. Hypertension (SNOMED CT [id number]) 13. Other and unspecified hyperlipidemia 14. Aneurysm, Aorta, Abdominal 4.5CM2 02/25 Vitals: B/P: 118/64 (07/23/2024 13:10) P: 85 (07/23/2024 13:10) R: 16 (10/05/2023 08:43) T: 97.7 F [36.5 C] (07/23/2024 13:10) HT: 71 in [180.3 cm] (05/10/2024 07:54) WT: 206.8 lb [93.80 kg] (07/23/2024 13:10) PE: WDWNWM in NAD NC/AT Neck: No JVD Chest: CTA&P CV: RRR Abd: NT Ext: No edema Neuro: No focal fincings. TEMP: Measurement DT TEMP F(C) 07/23/2024 13:10 97.7(36.5) PULSE: Measurement DT PULSE 07/23/2024 13:10 85 BLOOD PRESSURE: Measurement DT BP 07/23/2024 13:10 118/64 RESPIRATIONS: No values within 24 hours WEIGHT: Measurement DT WEIGHT LB(KG)[BMI] 07/23/2024 13:10 206.8(93.80)[29*] RENAL VASCULAR DUPLEX - NONE FOUND - 1Y Active Outpatient Medications (including Supplies): Active Outpatient Medications Status 1) AMLODIPINE BESYLATE 10MG TAB TAKE ONE TABLET BY MOUTH DAILY ACTIVE FOR BLOOD PRESSURE/HEART - DO NOT DRINK GRAPEFRUIT JUICE WHILE ON THIS DRUG 2) CARVEDILOL 25MG TAB TAKE ONE-HALF TABLET BY MOUTH TWICE A ACTIVE DAY FOR HEART 3) CHOLECALCIF 25MCG (D3-1,000UNIT) TAB TAKE ONE TABLET BY ACTIVE MOUTH DAILY FOR VITAMIN D SUPPLEMENT 4) EMPAGLIFLOZIN 25MG TAB TAKE ONE TABLET BY MOUTH EVERY ACTIVE MORNING Indication: FOR BLOOD SUGAR 5) FLUTICAS 250/SALMETEROL 50 INHL DISK 60 INHALE 1 INHALATION ACTIVE BY MOUTH TWICE A DAY -RINSE MOUTH AND SPIT AFTER EACH USE Indication: FOR BREATHING 6) ISOSORBIDE MONONITRATE 30MG SA TAB TAKE ONE TABLET BY MOUTH ACTIVE DAILY FOR HEART 7) LISINOPRIL 10MG TAB TAKE ONE-HALF TABLET BY MOUTH DAILY ACTIVE Indication: FOR HIGH BLOOD PRESSURE 8) ROSUVASTATIN CA 40MG TAB TAKE ONE-HALF TABLET BY MOUTH AT ACTIVE BEDTIME Indication: FOR CHOLESTEROL Active Non-VA Medications Status 1) Non-VA ASCORBIC ACID 500MG TAB 1000MG MOUTH DAILY ACTIVE 2) Non-VA ASPIRIN 81MG EC TAB 81MG MOUTH EVERY DAY ACTIVE 3) Non-VA FISH OIL 1000MG (500MG DHA/EPA) CAP 2000MG MOUTH ACTIVE TWICE A DAY 4) Non-VA MULTIVITAMIN/MINERALS THERAPEUT CAP/TAB 1 TABLET ACTIVE MOUTH DAILY 5) Non-VA NIACIN (SLO-NIACIN) 500MG TAB,SA 1000MG MOUTH AT ACTIVE BEDTIME 6) Non-VA POLYETHYLENE GLYCOL 3350 ORAL PWDR 1 HEAPING ACTIVE TABLESPOONFUL IN LIQUID MOUTH DAILY 7) Non-VA ZINC (FROM SULFATE) CAP,ORAL 25MG MOUTH EVERY EVENING ACTIVE 15 Total Medications Labs/Ancillary: Sodium: 139 mmol/L (07/23/2024 12:29) Potassium: 5.1 mmol/L (07/23/2024 12:29) Chloride: 113 mmol/L H (07/23/2024 12:29) CO2: 16 mmol/L L (07/23/2024 12:29) Creatinine: Collection DT Specimen Test Name Result Units Ref Range 07/23/2024 12:29 PLASMA!! CREATININE 3.18 H mg/dL 0.72 - 1.25 !! Indicates COMMENTS AVAILABLE...Refer to Interim Lab Report. BUN: 41 mg/dL H (07/23/2024 12:29) URR: Glucose: 113 mg/dL H (07/23/2024 12:29) Calcium: 9.6 mg/dL (07/23/2024 12:) Phosphorus: 4.8 mg/dL H (07/23/2024 12:29) Albumin: 5.0 g/dL (07/23/2024 12:29) Alk Phos: 100 U/L (05/10/2024 08:49) WBC: 8.2 K/cmm (07/23/2024 12:29) HCT: 0 HGB: 0 Platelets: 0 Iron Sat: ____ Total Protein: 8.0 g/dL (05/10/2024 08:49) Ferritin: ____ Transferrin Sat: ____ PTH, Intact: 0 HbsAg: ()Negative ()Positive Diagnosis / Impression: 1. CKD , stage 4: Cr 3.18, appears to have slowly progressive CKD most likely related to diabetic nephropathy. 2. Hypertension of CKD: BP well controlled. 3. Anemia of CKD: Hgb and Hct are nl. 4. Uremic osteodystrophy: Ca and PO4 are nl, Vit D is normal, PTH increased. 5. Diabetes well controlled, Plan: 1. Will schedule for renal education clinic. 2. Add sodium bicarbonate 650MG BID. 3. RTC in 3 months. 4. Labs on RTC: CBC, UA, panel 4, Vit D and PTH. Reason for Ordering Tests, Consults or Changes in Medications: Medication changes: Labs (on exit): Labs (on return) CBC () UA () Panel #4 () 24 hour urine () Cr () Protein() Urea () Phosphorus () UPEP () Other: Imaging Studies: Ultrasound of kidneys to: Check size () R/O obstruction () RA Duplex to R/O RA stenosis () Other:() Other diagnostic tests: PVR () EKG () Echo () Other: Follow-up Treatment and Patient Instructions: Consults: Reason: Chart checks: RTC: 64-008-5/99-T /echo/ CORINE GAY ATTENDING PHYSICIAN Signed: 07/23/2024 14:00 07/24/2024 ADDENDUM STATUS: COMPLETED Diagnosis/problems,lab results, medication review and changes,treatment plan and follow up discussed with /significant other/caregiver by provider. [place] exited clinic per provider. RTC determined per provider (order/note). Provider to notify and discuss procedure/lab results if deemed necessary. /echo/ KATI HOLLINGSWORTH RN [facility] Diabetes/Endocrine/[employer] Signed: 07/24/2024 09:38 CORINE GAY-D [facility] Jul 23, 2024 01:12 PM NURSING OUTPATIENT NOTE: LOCAL TITLE: [facility] MEDICINE CLINIC INTAKE NOTE STANDARD TITLE: NURSING OUTPATIENT NOTE DATE OF NOTE: JUL 23, 2024@13:12 ENTRY DATE: JUL 23, 2024@13:12:24 AUTHOR: ALLEN POTTER EXP COSIGNER: URGENCY: STATUS: COMPLETED Reason for visit/chief complaint: B/P: 118/64 (07/23/2024 13:10) P: 85 (07/23/2024 13:10) R: 16 (10/05/2023 08:43) T: 97.7 F [36.5 C] (07/23/2024 13:10) HT: 71 in [180.3 cm] (05/10/2024 07:54) WT: 206.8 lb [93.80 kg] (07/23/2024 13:10) Are you having any pain or recurrent pain in the last several weeks/months? Yes Severity Scale (8) Location: neck Duration: Characteristics: Chronic (over 3 months) Pain education material offered to patient (for pain > 3) No Risk factors history: Hypertension Yes BP Rechecked No Comments: Patient notified diesel inspector available upon request for any examinations/procedures. The patient was given a list of his/her medications, instructed to review and discuss any changes or problems with their provider. Patient advised to carry a list of current medications and any allergies with them in the event of emergency situations. Allergies: local and remote ATORVASTATIN, CLOPIDOGREL, PENICILLIN No Remote Allergy/ADR Data available for this patient Medication Reconciliation ACTIVE OUTPATIENT MEDICATIONS LOCAL/REMOTE AMLODIPINE BESYLATE 10MG TAB Directions: TAKE ONE TABLET BY MOUTH DAILY FOR BLOOD PRESSURE/HEART - DO NOT DRINK GRAPEFRUIT JUICE WHILE ON THIS DRUG Quantity: 90 for 90 days Issued: 05/10/24 Filled: 07/04/24 Expires: 08/08/24 Refills: 0 Status: ACTIVE CARVEDILOL 25MG TAB Directions: TAKE ONE-HALF TABLET BY MOUTH TWICE A DAY FOR HEART Quantity: 90 for 90 days Issued: 10/16/23 Filled: 05/27/24 Expires: 10/16/24 Refills: 1 Status: ACTIVE CHOLECALCIF 25MCG (D3-1,000UNIT) TAB Directions: TAKE ONE TABLET BY MOUTH DAILY FOR VITAMIN D SUPPLEMENT Quantity: 100 for 90 days Issued: 10/16/23 Filled: 07/01/24 Expires: 10/16/24 Refills: 1 Status: ACTIVE EMPAGLIFLOZIN 25MG TAB Directions: TAKE ONE TABLET BY MOUTH EVERY MORNING FOR BLOOD SUGAR Quantity: 90 for 90 days Issued: 12/30/23 Filled: 06/24/24 Expires: 12/30/24 Refills: 1 Status: ACTIVE FLUTICAS 250/SALMETEROL 50 INHL DISK 60 Directions: INHALE 1 INHALATION BY MOUTH TWICE A DAY FOR BREATHING -RINSE MOUTH AND SPIT AFTER EACH USE Quantity: 3 for 90 days Issued: 01/16/24 Filled: 06/14/24 Expires: 01/16/25 Refills: 2 Status: ACTIVE ISOSORBIDE MONONITRATE 30MG SA TAB Directions: TAKE ONE TABLET BY MOUTH DAILY FOR HEART Quantity: 90 for 90 days Issued: 05/10/24 Filled: 07/18/24 Expires: 05/11/25 Refills: 3 Status: ACTIVE LISINOPRIL 10MG TAB Directions: TAKE ONE-HALF TABLET BY MOUTH DAILY FOR HIGH BLOOD PRESSURE Quantity: 45 for 90 days Issued: 05/19/24 Filled: 05/20/24 Expires: 05/20/25 Refills: 3 Status: ACTIVE ROSUVASTATIN CA 40MG TAB Directions: TAKE ONE-HALF TABLET BY MOUTH AT BEDTIME FOR CHOLESTEROL Quantity: 45 for 90 days Issued: 05/19/24 Filled: 05/20/24 Expires: 05/20/25 Refills: 3 Status: ACTIVE No remote medications found. PENDING OUTPATIENT MEDICATONS (LOCAL/REMOTE): No local medications found. No remote medications found. ACTIVE NONVA MEDICATIONS (LOCAL): ASCORBIC ACID 500MG TAB Directions: 1000MG MOUTH DAILY Status: ACTIVE ASPIRIN 81MG EC TAB Directions: 81MG MOUTH EVERY DAY Status: ACTIVE FISH OIL 1000MG (500MG DHA/EPA) CAP Directions: 2000MG MOUTH TWICE A DAY Status: ACTIVE MULTIVITAMIN/MINERALS THERAPEUT CAP/TAB Directions: 1 TABLET MOUTH DAILY Status: ACTIVE NIACIN (SLO-NIACIN) 500MG TAB,SA Directions: 1000MG MOUTH AT BEDTIME Status: ACTIVE POLYETHYLENE GLYCOL 3350 ORAL PWDR Directions: 1 HEAPING TABLESPOONFUL IN LIQUID MOUTH DAILY Status: ACTIVE ZINC (FROM SULFATE) CAP,ORAL Directions: 25MG MOUTH EVERY EVENING Status: ACTIVE OUTPATIENT MEDICATIONS (LOCAL)WITHIN 90 DAYS: DEXTRAN 70/GLYCER 0.2%/HYPROMEL 0.3% OPH Directions: PUT 1 DROP IN BOTH EYES TWICE A DAY FOR DRY EYES Quantity: 30 for 90 days Issued: 05/02/23 Filled: 12/12/23 Expires: 05/02/24 Refills: 2 Status: GLIPIZIDE 5MG TAB Directions: TAKE ONE TABLET BY MOUTH EVERY DAY FOR DIABETES Quantity: 90 for 90 days Issued: 07/17/23 Filled: 06/10/24 Expires: 07/17/24 Refills: 0 Status: HYDROCODONE 7.5/ACETAMINOPHEN 325MG TAB Directions: TAKE 1 TABLET BY MOUTH THREE TIMES A DAY FOR PAIN Quantity: 90 for 30 days Issued: 05/08/24 Filled: 05/08/24 Expires: 06/07/24 Refills: 0 Status: HYDROCODONE 7.5/ACETAMINOPHEN 325MG TAB Directions: TAKE 1 TABLET BY MOUTH THREE TIMES A DAY FOR PAIN Quantity: 90 for 30 days Issued: 06/16/24 Filled: 06/16/24 Expires: 07/16/24 Refills: 0 Status: PANTOPRAZOLE NA 40MG EC TAB Directions: TAKE ONE TABLET BY MOUTH EVERY DAY 30 MINUTES BEFORE A MEAL FOR STOMACH. TAKE ON AN EMPTY STOMACH. Quantity: 90 for 90 days Issued: 07/17/23 Filled: 05/27/24 Expires: 07/17/24 Refills: 0 Status: DISCONTINUED OUTPATIENT MEDICATIONS (LOCAL) WITHIN 90 DAYS: AMLODIPINE BESYLATE 10MG TAB Directions: TAKE ONE TABLET BY MOUTH DAILY FOR BLOOD PRESSURE/HEART - DO NOT DRINK GRAPEFRUIT JUICE WHILE ON THIS DRUG Quantity: 90 for 90 days Issued: 04/15/24 Filled: 04/15/24 Expires: 07/14/24 Refills: 0 Status: DISCONTINUED FLUTICAS 250/SALMETEROL 50 INHL DISK 60 Directions: INHALE 1 INHALATION BY MOUTH TWICE A DAY FOR BREATHING -RINSE MOUTH AND SPIT AFTER EACH USE Quantity: 3 for 90 days Issued: 08/23/23 Filled: 12/24/23 Expires: 08/23/24 Refills: 1 Status: DISCONTINUED ISOSORBIDE MONONITRATE 30MG SA TAB Directions: TAKE ONE TABLET BY MOUTH DAILY FOR HEART Quantity: 90 for 90 days Issued: 07/17/23 Filled: 04/25/24 Expires: 07/17/24 Refills: 0 Status: DISCONTINUED NITROGLYCERIN 0.4MG SL TAB BTL 25 Directions: DISSOLVE ONE TABLET UNDER THE TONGUE EVERY 5 MINUTES UP TO 3 DOSES FOR CHEST PAIN -IF NO RELIEF CALL 911 Quantity: 1 for 30 days Issued: 06/02/23 Filled: 06/02/23 Expires: 06/02/24 Refills: 3 Status: DISCONTINUED ROSUVASTATIN CA 20MG TAB Directions: TAKE ONE-HALF TABLET BY MOUTH AT BEDTIME FOR CHOLESTEROL Quantity: 45 for 90 days Issued: 10/16/23 Filled: 04/15/24 Expires: 10/16/24 Refills: 2 Status: DISCONTINUED (EDIT) CLINIC MEDICATIONS (LOCAL): No local medications found. Reviewed current medications with patient/signficant other, patient/significant other reports patient taking ALL VA, Non VA & OTC medications as listed on [facility] medication tab outpatient section. Yes *Printed copy of medication list provided to patient and reviewed. Yes *Explained to the patient the importance of keeping providers updated on medication changes and to carrying an updated list of medication at all times in case of an emergency situation. Yes /echo/ ALLEN POTTER LPN Signed: 07/23/2024 13:13 ALLEN POTTER-[facility]
--- OUTSIDE RECORDS SUMMARY | 2024-07-31 08:03 | XMS_ITS | Encounter Summary ---
Author Name [facility] Organization [facility] Address [address] [place] [address] Care Team Providers Care Manager Subway Name Role Phone FAHAD BLOCK Primary Care [...] Berg's Name Patient's Relationship to Policy Berg ANTONIO WHEELER [place] C May 26, 2016 [id number] Samara RAMIREZ OBBY PATIENT [place] BS [place] [facility]IC[facility] IDUAL Jun 26, 2008 [id number] [phone] Samara RAMIREZ OBBY PATIENT MEDICARE (WNR) MEDICARE (M) PART A Nov 24, 2001 PART A [id number] [facility] Samara RAMIREZ OBBY PATIENT MEDICARE (WNR) MEDICARE (M) PART B Nov 24, 2001 PART B [id number] [facility] JAMES,Samara OBBY PATIENT MEDICARE (WNR) MEDICARE (M) PART A Nov 24, 2001 PART A [id number] [facility] Samara RAMIREZ OBBY PATIENT MEDICARE (WNR) MEDICARE (M) PART B Nov 24, 2001 PART B [id number] [facility] RAMRIEZ,B OBBY PATIENT MEDICARE (WNR) MEDICARE (M) PART A Nov 24, 2001 PART A [id number] RAMIREZ,B OBBY PATIENT MEDICARE (WNR) MEDICARE (M) PART B Nov 24, 2001 PART B [id number] RAMIREZ,B OBBY PATIENT MEDICARE (WNR) MEDICARE (M) PART A Nov 24, 2001 PART A [id number] RAMIREZ,B OBBY PATIENT MEDICARE (WNR) MEDICARE (M) PART B Nov 24, 2001 PART B [id number] RAMIREZ,B OBBY PATIENT Selected Encounter This section includes the information on record at [place] for the Encounter. Date/Time Encounter Type Encounter Description Reason Provider Source Jul 31, 2024 12:03 PM CASE MANAGEMENT SOCIAL WORK SERVICE ICD-10-CM N18.32 Chronic kidney disease, stage 3b MARC CAZARES Anil Encounter Template Text not used by [place] Assessments - Encounter Diagnoses This section includes the primary and secondary diagnoses documented for the Encounter. Date/Time Primary/Secondary Diagnosis Diagnosis Name Provider Source Jul 31, 2024 01:00 PM PRIMARY Chronic kidney disease, stage 3b RIZWANA CAZARES-MEG [facility] Plan of Treatment: Future Appointments (+ 6 months) and Future Tests (+/- 45 days) The Plan of Treatment section includes future care activities for the patient from all [place] treatmentfacilities. This section includes future appointments and future orders which are active, pending or scheduled. Future Appointments This section includes appointments that were scheduled to occur 6 months from the date of the Encounter, up to a maximum of 20 appointments. The data comes from all [place] treatment facilities. Appointment Date/Time Appointment Type Appointme nt Facility Name Dec 10, 2024 07:20 AM AMBULATORY - MEDICINE [facility]LLERMO [facility] Lab Results: +/- 30 days of the encounter This section includes the Chemistry and Hematology Lab Results on record with [place] for the patient. Radiology Reports and Pathology Reports are provided separately, in subsequent sections. Lab Results This section contains the Chemistry/Hematology Results that were resulted 30 days before or 30 daysafter the date of the Encounter. Date/Time Source Result Type Result - Unit Interpretation Reference Range Specimen Type Comment Jul 23, 2024 12:41 PM [facility] URINALYSIS URINE Specimen Type: URINE No comment entered. Ordering Provider: CORINE GAY Report Released Date/Time: Jun 25, 2024 10:29 AM Reporting Lab: [address] [id number] Performing Lab: [address] [id number] URINE COLOR Light Yellow Colorless-Yello w APPEARANCE [...] /[LPF] 0-2 Jul 23, 2024 12:29 PM [facility] PTH INTACT ([place]) PLASMA Specimen Type: [...] Jun 25, 2024 10:29 AM Reporting Lab: [address] [phone] Performing Lab: [address] [phone] PTH INTACT ([place]) 168.8 pg/mL H 8.7-77.1 Jul 23, 2024 12:29 PM [facility] 25-OH VITAMIN D SERUM Specimen Typ [...] Jun 25, 2024 10:29 AM Reporting Lab: [address] [address] Performing Lab: [place] [id number] 25-OH VITAMIN D 48.2 ng/mL 20.0-50.0 Jul 23, 2024 12:29 PM [facility] CBC/PLT BLOOD Specimen Type: BLOOD No comment entered. Ordering Provider: CORINE GAY Report Released Date/Time: Jun 25, 2024 10:29 AM Reporting Lab: [address] [address] Performing Lab: [address] [address] WBC 8.2 10*3/uL 5.0-10.0 RBC 4.81 10*6/uL 4.6-6.2 HGB 14.7 g/dL 14.0-18.0 HCT 44.4 42.0-52.0 MCV 92.3 fL 80.0-94.0 MCH 30.6 pg 27.0-31.0 MCHC 33.1 g/dL 32.0-36.0 PLT 165 10*3/uL 150-450 MPV 9.6 fL 9.0-13.1 RDW 15.9 11.0-16.0 NRBC 0.0 0.0-0.0 Jul 23, 2024 12:29 PM [facility] PANEL 4 PLASMA Specimen Type: PLASM [...] Jun 25, 2024 10:29 AM Reporting Lab: [address] [phone] Performing Lab: [address] [address] CREATININE 3.18 mg/dL H 0.72-1.25 UREA NITROGEN 41 mg/dL H 9-25 GLUCOSE 113 mg/dL H 74-100 SODIUM 139 mmol/L 136-145 POTASSIUM 5.1 mmol/L 3.5-5.1 CHLORIDE 113 mmol/L H 98-107 CO2 16 mmol/L L 22-29 CALCIUM 9.6 mg/dL 8.4-10.2 PHOSPHORUS 4.8 mg/dL H 2.3-4.7 ALBUMIN 5.0 g/dL 3.5-5.2 ANION GAP 10 meq/L 3-19 eGFR (CKD-EPI) Jul 08, 2024 09:05 AM [facility] DRUG SCREEN EXPANDED IN-HOUSE URINE [...] Jun 16, 2024 10:42 AM Reporting Lab: [address] [phone] Performing Lab: [address] [address] TETRAHYDROCANNABINOL SCREEN NEG Cuto ff < 50 [...] and tobacco- related health factors from the [place] facility where the Encounter took place. Current Smoking Status This section includes the most current smoking, or tobacco-related health factor, from the [place] facility where the Encounter took place. Date/Time Current Smoking Status Comment Jose Luis rodriguezy Aug 07, 2020 03:30 PM VA-TOBACCO USE WI 30 MIN OF WAKE UP [facility] Tobacco Use History This section includes a history of the smoking, or tobacco-related health factors, that were collected on or before the date of the Encounter. The data comes from the [place] facility where the Encounter took place. 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 [facility] Aug 07, 2020 03:30 PM VA-TOBACCO USE MED NO [facility] Aug 07, 2020 03:30 PM VA-TOBACCO USE WI 30 MIN OF WAKEUP [facility] Aug 07, 2020 03:30 PM VA-TOBACCO USER EVERY DAY [facility] Sep 07, 2015 02:27 PM V9 CURRENT TOBACCO USER [facility] Sep 07, 2015 02:27 PM V9 TOBACCO OFFERED [facility] Sep 07, 2015 02:27 PM V9 TOBACCO USE-DEC LINED MEDS [facility] Dec 02, 2008 06:27 PM TOBACCO OFFERRED P T MEDS (PROVIDER) [facility] Dec 02, 2008 06:27 PM V9 CURRENT TOBACCO USER [facility] Dec 02, 2008 06:27 PM V9 TOBACCO OFFERED [facility] Sep 05, 2007 07:04 PM TOBACCO OFFERRED P T MEDS (PROVIDER) [facility] Sep 05, 2007 07:04 PM V9 CURRENT TOBACCO USER [facility] Sep 05, 2007 07:04 PM V9 TOBACCO OFFERED [facility] Aug 10, 2006 06:03 PM TOBACCO OFFERRED P T MEDS (PROVIDER) [facility] Aug 10, 2006 06:03 PM V9 CURRENT TOBACCO USER [facility] Aug 10, 2006 06:03 PM V9 TOBACCO OFFERED [facility] Feb 22, 2006 09:55 PM HF V9 SECOND TOBAC CO 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 [facility] Aug 16, 2005 08:17 AM HF V9 CURRENT SMOKER SMOKES UP TO 2 PACKS/WK [facility] Aug 09, 2004 12:56 PM HF V9 CURRENT NON-SMOKER about a week ago [facility] Jul 02, 2003 07:59 AM HF V9 CURRENT NON-SMOKER 7yrs ago [facility] Apr 26, 2002 11:54 AM HF V9 CURRENT NON-SMOKER quit about 5 yrs ago. [facility] Advance Directives: All historical and current Section Date Range: From patient's date of to the date document was created. This section includes ALL of a patient's completed or amended [place] Advance and Rescinded Directives. The entries below indicate that a directive exists for the patient, but an actual copy is not included with this document. The data comes from all [place] facilities. Date Advance Directives Provider Source Oct 17, 2011 ADVANCE DIRECTIVE DISCUSSION AMY VÁSQUEZ [facility] Aug 11, 2010 ADVANCE DIRECTIVE DISCUSSION FAHAD,CO LETTE Martin [facility] Jun 04, 2009 ADVANCE DIRECTIVE DISCUSSION FAHADCO DARÍO Salazar [facility] Encounter Notes: All associated encounter notes This section contains the clinical notes associated to the Encounter. Date/Time Encounter Note(s) Provider Source Jul 31, 2024 12:03 PM SOCIAL WORK NOTE: LOCAL TITLE: SOCIAL WORK NOTE STANDARD TITLE: SOCIAL WORK NOTE DATE OF NOTE: JUL 31, 2024@12:03 ENTRY DATE: JUL 31, 2024@12:03:54 AUTHOR: TISHA CAZARES EXP COSIGNER: URGENCY: STATUS: COMPLETED RENAL EDUCATION SOCIAL WORK TELEPHONE INTERVIEW: Mr. Ramirez is scheduled for the Renal Education Class dated 08-06-2024 @ 11:00 am. I called Mr. Ramirez and got his permission to do a Renal Social Work Telephone Interview. I introduced myself and reported that I was the Linux Vmware Administrator for [employer]. I reminded Patient of the Renal Eduation Class scheduled to meet on 08-06-2024 @ 11:00 am on . Mr. Ramirez is a 88 year old gentleman who resides in [place] with his youngest daughter. 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 Mr. Ramirez is a [employer] and Comp[employer] Act Eligible per [facility]. Mr. Ramirez has an Honorable Discharge. EMERGENCY CONTACT SCREEN - Was reviewed with Mr. Ramirez and reported as correct as written. Patient's residential address and mailing address were also reviewed and reported as correct. LIVING WILL - Patient reports that he does not have a Living Will and chooses not to complete a Living Will. VA CO-PAYMENTS - Patient reports that he does have to pay co-payments for medications. SMOKING - Patient reports that he smokes from 1/2 - 3/4 pack of cigarettes each day. Patient reports that does not want to quit smoking. [facility] DIAL[facility]IS UNIT AND DIALYSIS UNIT OF CHOICE: [address] [address] TELEPHONE # [phone] FAX # [phone] NPI # [id number] OUTSIDE [employer] ARCHITECT OF CHOICE: DR. EDDI CAST NPI # [id number] [employer] ARCHITECT'S BILLING ADDRESS: [facility] [address] [place] [id number] IN/OUT OF NETWORK - Per previous verification from the [facility] Document Photographer, Patient's card lacer jacquard and faciity were both In Network. FAMILY - Patient and his had 2 sons and 2 daughters. Mr. Myers reports that his youngest daughter is age 64 and lives with him. INCOME - Patient reports that he receives a Social Security monthly check. Patient reports that he does not receive a VA check. INSURANCE - Per [employer], Patient receives Medicare Part A and [employer]ivid[employer] Insurances. TRAVEL DISTANCE/TRAVEL TIME/segundo - From [place] to [facility] [address] way is: 18 miles and the travel time is: 29 minutes. TRAVEL DISTANCE/TRAVEL/TIME/segundo - From [place] to [facility] () way is: 15.1 miles and the travel time is: 22 minutes. RENAL EDUCATION CLASS - I explained to Mr. Rmairez that the RD, Nurse Educator and myself as the Linux Vmware Administrator will provided Renal information and education. I encouraged Mr. Ramirez to bring family or friends with him to the meeting. Directions were given to Mr. Ramirez that the Renal Education Class met at on . Follow the Dertmatology signs and check in at the Dermatology Desk. HEMODIAYSIS AND PERITONEAL DIALYSIS - Were both explained to Mr. Ramirez. I also explained that the RD, Renal Nurse Educator, and myself as the Linux Vmware Administrator were provide Renal information and education. Supportive Care was given to Mr. Ramirez. PLAN - Linux Vmware Administrator will follow with the Data Processing Control Clerk APPT - 14:00 [facility] Att1 TIME: 30 minutes Procedure: Case Management and Counselling Diagnosis: Dependence on Renal Dialysis /es/ TISHA L GRACE CAZARES MA ELAINE L BISHOP-TRENT, MSSW, [place] Signed: 07/31/2024 13:01 Receipt Acknowledged By: 07/31/2024 13:46 /es/ TISHA Stokes LCSW-MEG [facility]
--- OUTSIDE RECORDS SUMMARY | 2024-12-03 01:46 | XMS_ITS | Continuity of Care Document ---
Author Name [facility] Organization [facility] Care Team Providers Care Chargemaster Specialist Name Role Phone [facility] Unavailable Unavailable Problems Combined list of problems from Department of Defense and Veterans Affairs facilities. It does not include entries that were removed or entered in error. 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, 2002 Entered By: Janes VÁSQUEZ Comment: 4.5CM2 02/25 [place] Chronic ischemic heart disease Active Condition [place] [facility] Chronic kidney disease (SNOMED CT 336355867) Active Condition [place] [facility] Chronic obstructive lung disease Active Condition [place] [facility] Coronary arteriosclerosis Active Condition [place] [facility] Coronary artery disease Active Condition [place] [facility] Degeneration of cervical intervertebral disc (SNOMED CT 93673013) Active Condition [place] Diabetes mellitus Active Condition [place] Gastroesophageal reflux disease Active Condition [place] [facility] Hearing loss (SNOMED CT 00579325) Active Condition [place] [facility] Hyperlipidemia Active Condition [place] [facility] Hypertension (SNOMED CT 49617096) Active Condition [place] [facility] Internal hemorrhoids without mention of complication (ICD-9-CM 455.0) Active Condition [place] Low back pain Active Condition [place] Osteoarthritis Active Condition [place] Other and unspecified hyperlipidemia Active Condition [place] [facility] Peripheral Vascular Disease Active Condition [place] [facility] Personal History of Colonic Polyps (ICD-9-CM V12.72) Active Condition [place] [facility] Tobacco use (SNOMED CT 218205702) Active [place] [facility] Type 2 diabetes mellitus (SNOMED CT 80132696) Active Condition [place] [facility] Diagnosis: ICD-10-CM N18.32 Chronic kidney disease, stage 3b Active Diagnosis [facility] Diagnosis: ICD-10-CM 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 [facility] Diagnosis: ICD-10-CM M54.59 Other low back pain Active Diagnosis [facility] Diagnosis: ICD-10-CM R79.9 Abnormal finding of blood chemistry, unspecified Active Diagnosis [facility] Diagnosis: ICD-10-CM E11.8 Type 2 diabetes mellitus with unspecified complications Active Diagnosis [facility] Diagnosis: ICD-10-CM 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 Diagnosis [facility] Diagnosis: ICD-10-CM H04.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 Active Diagnosis [facility] Diagnosis: ICD-10-CM Z98.42 Cataract extraction status, left eye Active Diagnosis [facility] Diagnosis: ICD-10-CM Z48.810 Encntr for surgical aftcr fol surgery on the sense organs Active Diagnosis [facility] Diagnosis: ICD-10-CM Z71.81 Spiritual or sabianist counseling Active Diagnosis [facility] Diagnosis: ICD-10-CM H25.12 Age-related nuclear cataract, left eye Active Diagnosis [facility] Diagnosis: ICD-10-CM Z98.41 Cataract extraction status, right eye Active Diagnosis [facility] Diagnosis: ICD-10-CM R05.9 Cough, unspecified Active Diagnosis [facility] Diagnosis: ICD-10-CM H25.11 Age-related nuclear cataract, right eye Active Diagnosis [facility] Diagnosis: ICD-10-CM Z01.818 Encounter for other preprocedural examination Active Diagnosis [facility] Diagnosis: ICD-10-CM Z71.89 Other specified counseling Active Diagnosis [facility] Diagnosis: ICD-10-CM I10 Essential (primary) hypertension Active Diagnosis [facility] Diagnosis: ICD-10-CM H25.813 Combined forms of age-related cataract, bilateral Active Diagnosis [facility] Medications Combined list of outpatient medications from Department of Defense and Veterans Affairs facilities.Medications provided include 1) outpatient medications from the last 15 months, and 2) patient-reported medications. Medication Details Route Status Patient Instructions Prescription Expires Prescription Number Last Dispense Date Ordering Provider Order Date Order Qty Source AMLODIPINE BESYLATE 10MG TAB TAKE ONE TABLET BY MOUTH DAILY FOR BLOOD PRESSURE /HEART - DO NOT DRINK GRAPEFRU IT JUICE WHILE ON THIS DRUG ORAL ACTIVE 01/19/2025 [id number] 5 HUMAIRA BLOCK TA 2024 90 [place] [facility] [place] AMLODIPINE BESYLATE 10MG TAB TAKE ONE TABLET BY MOUTH DAILY FOR BLOOD PRESSURE /HEART - DO NOT DRINK GRAPEFRU IT JUICE WHILE ON THIS DRUG ORAL DISCONT INUED 08/08/2024 [id number] 5 HUMAIRA BLOCK TA 2024 90 [place] [facility] [place] AMLODIPINE BESYLATE 10MG TAB TAKE ONE TABLET BY MOUTH DAILY FOR BLOOD PRESSURE /HEART - DO NOT DRINK GRAPEFRU IT JUICE WHILE ON THIS DRUG ORAL DISCONT INUED 07/14/2024 [id number] 4 DAGO POTTER IN C 2023 90 [place] [facility] [place] AMLODIPINE BESYLATE 10MG TAB TAKE ONE TABLET BY MOUTH DAILY FOR BLOOD PRESSURE /HEART - DO NOT DRINK GRAPEFRU IT JUICE WHILE ON THIS DRUG ORAL DISCONT INUED 04/15/2024 [id number] 4 DAGO POTTER IN C 2023 90 [place] [facility] [place] AMLODIPINE BESYLATE 10MG TAB TAKE ONE TABLET BY MOUTH DAILY FOR BLOOD PRESSURE /HEART - DO NOT DRINK GRAPEFRU IT JUICE WHILE ON THIS DRUG ORAL DISCONT INUED 01/14/2024 [id number] 4 DAGO POTTER IN C 2023 90 [place] [facility] [place] ASCORBIC ACID 500MG TAB TAKE TWO TABLETS BY MOUTH DAILY ORAL ACTIVE MILLER VÁSQUEZ W 2007 [place] ASPIRIN 81MG TAB,EC TAKE ONE TABLET BY MOUTH QD ORAL ACTIVE MILLER VÁSQUEZ W 2007 [place] CARVEDILOL 25MG TAB TAKE ONE-HALF TABLET BY MOUTH TWICE A DAY FOR HEART ORAL DISCONT INUED 02/07/2024 [id number] 4 Josy JOHNSON A 2022 90 [place] [facility] CARVEDILOL 25MG TAB TAKE ONE-HALF TABLET BY MOUTH TWICE A DAY FOR HEART ORAL 10/16/2024 [id number] 5 MARIETTA FINNEGAN R 2023 90 [place] [facility] [place] CHOLECALCIF GHADA 25MCG (1,000UNIT) TAB TAKE ONE TABLET BY MOUTH DAILY FOR VITAMIN D SUPPLEME NT ORAL ACTIVE 10/22/2025 [id number] 5 MARIETTA FINNEGAN R 2024 100 [place] [facility] [place] CHOLECALCIF GHADA 25MCG (1,000UNIT) TAB TAKE ONE TABLET BY MOUTH DAILY FOR VITAMIN D SUPPLEME NT ORAL DISCONT INUED 10/16/2024 [id number] 5 MARIETTA FINNEGAN R 2023 100 [place] [facility] [place] CHOLECALCIF GHADA 25MCG (1,000UNIT) TAB TAKE ONE TABLET BY MOUTH DAILY FOR VITAMIN D SUPPLEME NT ORAL DISCONT INUED 02/07/2024 [id number] 4 Josy JOHNSON A 2022 100 [place] [facility] DEXTRAN 70/GLYCERIN 0.2%/HYPROM ELLOSE 0.3% SOLN,OPH PUT 1 DROP IN BOTH EYES TWICE A DAY FOR DRY EYES OPHTHA LMIC 05/02/2024 [id number] SOURAV PEDRO R 2022 30 [place] [facility] [place] EMPAGLIFLOZ IN 25MG TAB TAKE ONE TABLET BY MOUTH EVERY MORNING FOR BLOOD SUGAR ORAL ACTIVE 12/30/2024 [id number] 5 MCKAYLAKIT TA 2023 90 [place] [facility] [place] FISH OIL 1000MG (500MG DHA/EPA) CAP,ORAL TAKE 2 CAPSULES BY MOUTH TWICE A DAY ORAL ACTIVE POTTER,DAGO IN C 2018 [place] [facility] [place] FLUTICASONE 250MCG/SALM ETEROL 50MCG INHL,ORAL,D ISKUS,60 INHALE 1 INHALATI ON BY MOUTH TWICE A DAY FOR BREATHIN G -RINSE MOUTH AND SPIT AFTER EACH USE RESPIR ATORY (INHAL ATION) ACTIVE 01/16/2025 [id number] 4 MARIETTA FINNEGAN R 2023 3 [place] [facility] [place] FLUTICASONE 250MCG/SALM ETEROL 50MCG INHL,ORAL,D ISKUS,60 INHALE 1 INHALATI ON BY MOUTH TWICE A DAY FOR BREATHIN G -RINSE MOUTH AND SPIT AFTER EACH USE RESPIR ATORY (INHAL ATION) DISCONT INUED 08/23/2024 [id number] 4 MARIIA OVERTON 2023 3 [place] GLIPIZIDE 5MG TAB TAKE ONE TABLET BY MOUTH EVERY DAY FOR DIABETES ORAL ACTIVE 09/24/2025 [id number] 5 MARIETTA FINNEGAN R 2024 90 [place] [facility] [place] GLIPIZIDE 5MG TAB TAKE ONE TABLET BY MOUTH EVERY DAY FOR DIABETES ORAL DISCONT INUED 07/17/2024 [id number] 4 MARIETTA FINNEGAN R 2023 90 [place] [facility] HYDROCODONE 7.5MG/ACETA MINOPHEN 325MG TAB TAKE 1 TABLET BY MOUTH THREE TIMES A DAY FOR PAIN ORAL 09/05/2024 [id number] 5 HUMAIRA BLOCK 2024 90 [place] [facility] [place] HYDROCODONE 7.5MG/ACETA MINOPHEN 325MG TAB TAKE 1 TABLET BY MOUTH THREE TIMES A DAY FOR PAIN ORAL 07/16/2024 [id number] 4 HUMAIRA BLOCK 2023 90 [place] [facility] [place] HYDROCODONE 7.5MG/ACETA MINOPHEN 325MG TAB TAKE 1 TABLET BY MOUTH THREE TIMES A DAY FOR PAIN ORAL 06/07/2024 [id number] 4 KOUSA,KIT TA 2023 90 [place] [facility] [place] HYDROCODONE 7.5MG/ACETA MINOPHEN 325MG TAB TAKE 1 TABLET BY MOUTH THREE TIMES A DAY FOR PAIN ORAL 04/03/2024 [id number] 4 KOUSA,KIT TA 2023 90 [place] [facility] [place] HYDROCODONE 7.5MG/ACETA MINOPHEN 325MG TAB TAKE 1 TABLET BY MOUTH THREE TIMES A DAY FOR PAIN ORAL 02/22/2024 [id number] 4 KOUSA,KIT TA 2023 90 [place] [facility] [place] HYDROCODONE 7.5MG/ACETA MINOPHEN 325MG TAB TAKE 1 TABLET BY MOUTH THREE TIMES A DAY FOR PAIN ORAL 10/31/2023 [id number] 4 MARIIA OVERTON 2023 90 [place] [facility] ISOSORBIDE MONONITRATE 30MG TAB,SA TAKE ONE TABLET BY MOUTH DAILY FOR HEART ORAL ACTIVE 05/11/2025 [id number] 5 HUMAIRA BLOCK TA 2024 90 [place] [facility] ISOSORBIDE MONONITRATE 30MG TAB,SA TAKE ONE TABLET BY MOUTH DAILY FOR HEART ORAL DISCONT INUED 07/17/2024 [id number] 4 MARIETTA FINNEGAN 2023 90 [place] [facility] LISINOPRIL 10MG TAB TAKE ONE-HALF TABLET BY MOUTH DAILY FOR HIGH BLOOD PRESSURE ORAL ACTIVE 05/20/2025 [id number] 5 KOKARENKIT TA 2023 45 [place] [facility] MULTIVITAMI NS W/MINERALS CAP/TAB TAKE ONE TABLET BY MOUTH DAILY ORAL ACTIVE MILLER VÁSQUEZ W 2007 [place] NIACIN (SLO-NIACIN ) 500MG TAB,SA TAKE TWO TABLETS BY MOUTH AT BEDTIME ORAL ACTIVE DAGO POTTER C 2018 [place] [facility] PANTOPRAZOL E NA 40MG TAB,EC TAKE ONE TABLET BY MOUTH EVERY DAY 30 MINUTES BEFORE A MEAL FOR STOMACH. TAKE ON AN EMPTY STOMACH. ORAL ACTIVE 08/27/2025 [id number] 5 MARIETTA FINNEGAN R 2024 90 [place] [facility] PANTOPRAZOL E NA 40MG TAB,EC TAKE ONE TABLET BY MOUTH EVERY DAY 30 MINUTES BEFORE A MEAL FOR STOMACH. TAKE ON AN EMPTY STOMACH. ORAL DISCONT INUED 07/17/2024 [id number] 4 MARIETTA FINNEGAN R 2023 90 [place] [facility] POLYETHYLEN E GLYCOL 3350 PWDR,ORAL MIX 1 HEAPING TABLESPO ONFUL IN LIQUID AND TAKE BY MOUTH DAILY ORAL ACTIVE DAGO POTTER IN C 2018 [place] [facility] POLYMYXIN B SO4 [id number]/ML /TRIMETHOPR IM 0.1% SOLN,OPH PUT 1 DROP IN LEFT EYE FOUR TIMES A DAY FOR INFECTIO N -PHARMAC Y DELIVER TO AMB SURG. OPHTHA LMIC 10/31/2023 [id number] 4 Josselin PONCE 2023 10 [place] PREDNISOLON E ACETATE 1% SUSP,OPH INSTILL 1 DROP IN LEFT EYE FOUR TIMES A DAY FOR INFLAMMA TION -PHARMAC Y DELIVER TO AMB SURG. -PHARMAC Y DELIVER TO AMB SURG. OPHTHA LMIC 10/31/2023 [id number] 4 Josselin PONCE 2023 5 [place] ROSUVASTATI N CA 20MG TAB TAKE ONE-HALF TABLET BY MOUTH AT BEDTIME FOR CHOLESTE ROL ORAL DISCONT INUED (EDIT) 10/16/2024 [id number] 4 MARIETTA FINNEGAN R 2023 45 [place] [facility] ROSUVASTATI N CA 20MG TAB TAKE ONE-HALF TABLET BY MOUTH AT BEDTIME FOR CHOLESTE ROL ORAL DISCONT INUED 02/07/2024 [id number] 4 Josy JOHNSON 2022 45 [place] [facility] ROSUVASTATI N CA 40MG TAB TAKE ONE-HALF TABLET BY MOUTH AT BEDTIME FOR CHOLESTE ROL ORAL ACTIVE 05/20/2025 [id number] 5 HUMAIRA BLOCK TA 2023 45 [place] [facility] SODIUM BICARBONATE 650MG TAB TAKE ONE TABLET BY MOUTH TWICE A DAY FOR EXCESS BODY ACID ORAL ACTIVE 07/24/2025 [id number] 5 Nadia GAY OHLuis W 2024 180 [place] ZINC (FROM SULFATE) CAP,ORAL TAKE 25MG BY MOUTH EVERY EVENING ORAL ACTIVE DAGO POTTER 2019 [place] [facility] Allergies, Adverse Reactions, Alerts Combined list of allergies from Department of Defense and Veterans Affairs facilities. It does not include entries that were removed or entered in error. Substance Category Reaction Severity Reaction type Status Date Reported Comments Source ATORVASTATIN Propensity to adverse reactions to drug (finding) Muscle pain MILD active 1 [facility] CLOPIDOGREL Propensity to adverse reactions to drug (finding) Loss of appetite, Taste sense altered active 2 [facility] PENICILLIN Propensity to adverse reactions to drug (finding) Urticaria active 9 [facility] Immunizations Combined list of available immunizations from the Department of Defense and Veterans Affairs facilities. Immunization Series Date Given Administered By Site Reaction Lot Number CVX Code Drug Yarn Carrier Status Comments Source INFLUENZA, HIGH-DOSE, TRIVALENT, PF 2 2023 135 complet ed HISTORICA L INFORMATI ON - FROM OTHER REGISTRY, [place] [facility] INFLUENZA, UNSPECIFIED FORMULATION 2022 88 complet ed HISTORICA L INFORMATI ON - FROM OTHER PROVIDER, [place] [facility] COVID-19 (PFIZER), MRNA, LNP-S, BIVALENT BOOSTER, PF, 30 MCG/0.3 ML DOSE 1 2022 SPEARSDEJON Josselin LEFT [place] ID [id number] 300 complet ed [facility] [facility], [place] [facility] INFLUENZA, UNSPECIFIED FORMULATION 2021 88 complet ed HISTORICA L INFORMATI ON - FROM OTHER PROVIDER, [place] [facility] [place] COVID-19 (PFIZER), MRNA, LNP-S, PF, 30 MCG/0.3 ML DOSE, EMERITA-SUCROSE (AGES 12+ YEARS) 4 2021 217 complet ed PFR; [id number]; 2 [place] INFLUENZA VACCINE, QUADRIVALENT, ADJUVANTED 1 2020 205 complet ed HISTORICA L INFORMATI ON - FROM OTHER REGISTRY, [place] [facility] COVID-19 ([employer] MRNA, LNP-S, PF, 30 MCG/0.3 ML DOSE 3 2020 208 complet ed [place] [facility] TDAP 1 2020 115 complet ed HISTORICA L INFORMATI ON - FROM OTHER REGISTRY, [place] [facility] COVID-19 ([employer] MRNA, LNP-S, PF, 30 MCG/0.3 ML DOSE 2 2020 208 complet ed PFR; [id number]; 1 [place] COVID-19 (PFIZER), MRNA, LNP-S, PF, 30 MCG/0.3 ML DOSE 1 2020 208 complet ed PFR; [id number]; 1 [place] INFLUENZA, SEASONAL, INJECTABLE 2018 141 complet ed UTD [place] [facility] [place] INFLUENZA, SEASONAL, INJECTABLE 2017 141 complet ed [place] [facility] INFLUENZA A & B (HISTORICAL) 2014 88 complet ed [place] [facility] INFLUENZA A & B (HISTORICAL) 2013 88 complet ed [place] [facility] INFLUENZA A & B (HISTORICAL) 2011 88 complet ed [place] [facility] INFLUENZA A & B (HISTORICAL) 2010 88 complet ed [place] [facility] INFLUENZA A & B (HISTORICAL) 2009 88 complet ed [place] [facility] TD(ADULT) UNSPECIFIED FORMULATION 2009 139 complet ed [place] [facility] INFLUENZA A & B (HISTORICAL) 2008 88 complet ed [place] [facility] INFLUENZA A & B (HISTORICAL) 2007 88 complet ed [place] [facility] INFLUENZA A & B (HISTORICAL) 2006 88 complet ed [place] [facility] INFLUENZA A & B (HISTORICAL) 2005 88 complet ed [place] [facility] TD(ADULT) UNSPECIFIED FORMULATION 2005 139 complet ed [place] [facility] INFLUENZA A & B (HISTORICAL) 2004 88 complet ed UP TO DATE [place] [facility] INFLUENZA A & B (HISTORICAL) 2003 88 complet ed UP TO DATE FOR 2003- [place] [facility] INFLUENZA A & B (HISTORICAL) 2003 88 complet ed no reaction [place] [facility] INFLUENZA, UNSPECIFIED FORMULATION 2002 88 complet ed no reaction [place] [facility] INFLUENZA, UNSPECIFIED FORMULATION 2001 88 complet ed [place] [facility] PNEUMOCOCCAL, UNSPECIFIED FORMULATION 2001 109 complet ed Up to date. [place] [facility] TD(ADULT) UNSPECIFIED FORMULATION 1996 139 complet ed Up to date. [place] [facility] Results Combined list of recent chemistry, hematology and other laboratory results from Department of Defense and Veterans Affairs, ranging from 15 months to all on record, depending upon the facility. Order Name Results Value Reference Range Date Interpretation Specimen Comments Source URINALYS IS COLOR OF URINE Light Yellow 07/23 Specimen Type: URINE No comment entered. Ordering Provider: MAKENZIE GAY Report Released Date/Time: Jun 25, 2024 10:29 AM Reporting Lab: [facility] [address] [address] Performing Lab: [facility] [address] [phone] [facility] URINALYS IS APPEARANCE OF URINE Clear 07/23 Specimen Type: URINE No comment entered. Ordering Provider: MAKENZIE GAY Report Released Date/Time: Jun 25, 2024 10:29 AM Reporting Lab: [address] [phone] Performing Lab: [address] [phone] [facility] URINALYS IS UROBILINOG EN [MASS/VOLU ME] IN URINE BY TEST STRIP Normalmg /dL 07/23 Specimen Type: URINE No comment entered. Ordering Provider: MAKENZIE GAY Report Released Date/Time: Jun 25, 2024 10:29 AM Reporting Lab: [address] [phone] Performing Lab: [place] [phone] [place] [address] URINALYS IS HEMOGLOBIN [PRESENCE] IN URINE BY TEST STRIP Negative 07/23 Specimen Type: URINE No comment entered. Ordering Provider: MAKENZIE GAY Report Released Date/Time: Jun 25, 2024 10:29 AM Reporting Lab: [address] [phone] Performing Lab: [place] [phone] [place] [address] URINALYS IS BILIRUBIN. TOTAL [PRESENCE] IN URINE BY TEST STRIP Negative 07/23 Specimen Type: URINE No comment entered. Ordering Provider: MAKENZIE GAY Report Released Date/Time: Jun 25, 2024 10:29 AM Reporting Lab: [address] [phone] Performing Lab: [address] [address] [facility] URINALYS IS KETONES [MASS/VOLU ME] IN URINE BY TEST STRIP Negative mg/dL 07/23 Specimen Type: URINE No comment entered. Ordering Provider: MAKENZIE GAY Report Released Date/Time: Jun 25, 2024 10:29 AM Reporting Lab: [address] [address] Performing Lab: [address] [address] [facility] URINALYS IS PROTEIN [MASS/VOLU ME] IN URINE BY TEST STRIP 30 mg/dL 07/23 H Specimen Type: URINE No comment entered. Ordering Provider: MAKENZIE GAY Report Released Date/Time: Jun 25, 2024 10:29 AM Reporting Lab: [place] [phone] Performing Lab: [place] [phone] [place] [address] URINALYS IS PH OF URINE BY TEST STRIP 5.5 4.5 - 8.0 07/23 Specimen Type: URINE No comment entered. Ordering Provider: MAKENZIE GAY Report Released Date/Time: Jun 25, 2024 10:29 AM Reporting Lab: [place] [phone] Performing Lab: [place] [phone] URINALYS IS NITRITE [PRESENCE] IN URINE BY TEST STRIP Negative 07/23 Specimen Type: URINE No comment entered. Ordering Provider: MAKENZIE GAY Report Released Date/Time: Jun 25, 2024 10:29 AM Reporting Lab: [place] [phone] Performing Lab: [place] [phone] [place] [address] URINALYS IS LEUKOCYTE ESTERASE [PRESENCE] IN URINE BY TEST STRIP TRACE 07/23 H Specimen Type: URINE No comment entered. Ordering Provider: MAKENZIE GAY Report Released Date/Time: Jun 25, 2024 10:29 AM Reporting Lab: [place] [phone] Performing Lab: [address] [place] [address] URINALYS IS SPECIFIC GRAVITY OF URINE 1.018 1.005 - 1.030 07/23 Specimen Type: URINE No comment entered. Ordering Provider: MAKENZIE GAY Report Released Date/Time: Jun 25, 2024 10:29 AM Reporting Lab: [address] [address] Performing Lab: [place] [phone] [facility] URINALYS IS GLUCOSE [MASS/VOLU ME] IN URINE BY TEST STRIP >1000mg/ dL 07/23 H Specimen Type: URINE No comment entered. Ordering Provider: MAKENZIE GAY Report Released Date/Time: Jun 25, 2024 10:29 AM Reporting Lab: [address] [address] Performing Lab: [place] [phone] [facility] URINALYS IS LEUKOCYTES [#/AREA] IN URINE SEDIMENT BY AUTOMATED COUNT 2 /[HPF] 0 - 3 07/23 Specimen Type: URINE No comment entered. Ordering Provider: MAKENZIE GAY Report Released Date/Time: Jun 25, 2024 10:29 AM Reporting Lab: [place] [phone] Performing Lab: [place] [phone] [facility] URINALYS IS EPITHELIAL CELLS.SQUA MOUS [#/AREA] IN URINE SEDIMENT BY AUTOMATED COUNT 3 /[LPF] 0 - 28 07/23 Specimen Type: URINE No comment entered. Ordering Provider: MAKENZIE GAY Report Released Date/Time: Jun 25, 2024 10:29 AM Reporting Lab: [address] [address] Performing Lab: [address] [phone] [facility] URINALYS IS HYALINE CASTS [#/AREA] IN URINE SEDIMENT BY AUTOMATED COUNT 1 /[LPF] 0 - 2 07/23 Specimen Type: URINE No comment entered. Ordering Provider: MAKENZIE GAY Report Released Date/Time: Jun 25, 2024 10:29 AM Reporting Lab: [place] [phone] Performing Lab: [place] [phone] [place] [address] PTH INTACT ([place]) PARATHYRIN .INTACT [MASS/VOLU ME] IN SERUM OR PLASMA 168.8 pg/mL 8.7 - 77.1 07/23 H Specimen Type: PLASMA Comment: For intraoperat sarah testing samples drawn 10 minutes post resection should decrease >50% from the highest baseline. STAT assay time 18 minutes. Dialysis patients are typically maintained by using multiples of the reference range upper limit: this is the [place] assay, a 2nd generation intact PTH method. Hemolysis and high levels of protein can interfere. Heterophili c antibodies can interfere. Ordering Provider: MAKENZIE GAY Report Released Date/Time: Jun 25, 2024 10:29 AM Reporting Lab: [place] [phone] Performing Lab: [place] [phone] [place] [address] 25-OH VITAMIN D 25-HYDROXY VITAMIN D3 [MASS/VOLU ME] IN SERUM OR PLASMA 48.2 ng/mL 20.0 - 50.0 07/23 Specimen Type: SERUM Comment: The National Institutes of Health (NIH) recommendat ions state: <12 ng/mL - Deficient 20 - 50 ng/mL - Optimal Levels - adequate for most people. >50 ng/mL - Increased risk of hypercalciu severo/other health problems - clinical correlation is required. These reference ranges represent clinical decision values rather than population- based reference values. Ordering Provider: MAKENZIE GAY Report Released Date/Time: Jun 25, 2024 10:29 AM Reporting Lab: [address] [id number] Performing Lab: [place] [id number] [place] [address] CBC/PLT LEUKOCYTES [#/VOLUME] IN BLOOD BY AUTOMATED COUNT 8.2 10*3/uL 5.0 - 10.0 07/23 Specimen Type: BLOOD No comment entered. Ordering Provider: MAKENZIE GAY Report Released Date/Time: Jun 25, 2024 10:29 AM Reporting Lab: [address] [phone] Performing Lab: [place] [id number] [facility] [id number] [facility] CBC/PLT ERYTHROCYT ES [#/VOLUME] IN BLOOD BY AUTOMATED COUNT 4.81 10*6/uL 4.6 - 6.2 07/23 Specimen Type: BLOOD No comment entered. Ordering Provider: MAKENZIE GAY Report Released Date/Time: Jun 25, 2024 10:29 AM Reporting Lab: [place] [id number] Performing Lab: [place] [phone] [facility] CBC/PLT HEMOGLOBIN [MASS/VOLU ME] IN BLOOD 14.7 g/dL 14.0 - 18.0 07/23 Specimen Type: BLOOD No comment entered. Ordering Provider: MAKENZIE GAY Report Released Date/Time: Jun 25, 2024 10:29 AM Reporting Lab: [place] [phone] Performing Lab: [address] [facility] CBC/PLT HEMATOCRIT [VOLUME FRACTION] OF BLOOD BY AUTOMATED COUNT 44.4 42.0 - 52.0 07/23 Specimen Type: BLOOD No comment entered. Ordering Provider: MAKENZIE GAY Report Released Date/Time: Jun 25, 2024 10:29 AM Reporting Lab: [address] Performing Lab: [address] [facility] CBC/PLT MCV [ENTITIC VOLUME] BY AUTOMATED COUNT 92.3 fL 80.0 - 94.0 07/23 Specimen Type: BLOOD No comment entered. Ordering Provider: MAKENZIE GAY Report Released Date/Time: Jun 25, 2024 10:29 AM Reporting Lab: [address] [phone] Performing Lab: [address] [facility] CBC/PLT MCH [ENTITIC MASS] BY AUTOMATED COUNT 30.6 pg 27.0 - 31.0 07/23 Specimen Type: BLOOD No comment entered. Ordering Provider: MAKENZIE GAY Report Released Date/Time: Jun 25, 2024 10:29 AM Reporting Lab: [place] [phone] Performing Lab: [address] CBC/PLT MCHC [MASS/VOLU ME] BY AUTOMATED COUNT 33.1 g/dL 32.0 - 36.0 07/23 Specimen Type: BLOOD No comment entered. Ordering Provider: MAKENZIE GAY Report Released Date/Time: Jun 25, 2024 10:29 AM Reporting Lab: [place] [address] Performing Lab: [address] CBC/PLT PLATELETS [#/VOLUME] IN BLOOD 165 10*3/uL 150 - 450 07/23 Specimen Type: BLOOD No comment entered. Ordering Provider: MAKENZIE GAY Report Released Date/Time: Jun 25, 2024 10:29 AM Reporting Lab: [place] [address] Performing Lab: [address] CBC/PLT PLATELET MEAN VOLUME [ENTITIC VOLUME] IN BLOOD 9.6 fL 9.0 - 13.1 07/23 Specimen Type: BLOOD No comment entered. Ordering Provider: MAKENZIE GAY Report Released Date/Time: Jun 25, 2024 10:29 AM Reporting Lab: [place] [address] Performing Lab: [address] CBC/PLT ERYTHROCYT E DISTRIBUTI ON WIDTH [ENTITIC VOLUME] BY AUTOMATED COUNT 15.9 11.0 - 16.0 07/23 Specimen Type: BLOOD No comment entered. Ordering Provider: MAKENZIE GAY Report Released Date/Time: Jun 25, 2024 10:29 AM Reporting Lab: [address] [phone] Performing Lab: [address] [phone] [facility] CBC/PLT NUCLEATED ERYTHROCYT ES/100 ERYTHROCYT ES IN BLOOD 0.0 0.0 - 0.0 07/23 Specimen Type: BLOOD No comment entered. Ordering Provider: MAKENZIE GAY Report Released Date/Time: Jun 25, 2024 10:29 AM Reporting Lab: [address] [phone] Performing Lab: [address] [phone] [facility] PANEL 4 CREATININE [MASS/VOLU ME] IN SERUM OR PLASMA 3.18 mg/dL 0.72 - 1.25 07/23 H Specimen Type: PLASMA Comment: Estimated Glomerular Filtration Rate (eGFR) calculated using the 2020 Chronic Kidney Disease-Epi demiology (CKD-EPI) Collaborati on creatinine equation; units of measure are mL/min/1.73 m2. Results are only valid for adults (>=18 years) whose serum creatinine is in a steady state. eGFR calculation s are not valid for patients with acute kidney injury and for patients on dialysis. Creatinine- based estimates of kidney function may also be inaccurate in patients with reduced creatinine generation due to decreased muscle mass (e.g., malnutritio n, severe hypoalbumin emia, sarcopenia, chronic neuromuscul ar disease, amputations , severe heart failure or liver disease) and in patients with increased creatinine generation due to increased muscle mass (e.g., muscle builders, anabolic steroids) or increased dietary intake. As drug clearance is proportiona l to total GFR and not GFR indexed to body surface area (BSA), in individuals with a BSA substantial ly different than 1.73 m2, drug dosing should be based on the reported eGFR value de-indexed from BSA by multiplying by the individual' s BSA and dividing by 1.73. CKD is diagnosed based on abnormaliti es of kidney structure or function, present for >3 months, with implication s for health and disease. CKD is classified and staged based on cause, eGFR and albuminuria (quantified as urine albumin to creatinine ratio). An eGFR >60 mL/min/1.73 m2 in the absence of increased urine albumin excretion or structural abnormaliti es does not represent CKD. eGFR CKD Interpretat ion (mL/min/1.7 3 m2) stage >=90 G1 Normal 60-89 G2 Mild decrease 45-59 G3A Mild to moderate decrease 30-44 G3B Moderate to severe decrease 15-29 G4 Severe decrease <15 G5 Kidney failure Ordering Provider: MAKENZIE GAY Report Released Date/Time: Jun 25, 2024 10:29 AM Reporting Lab: [facility] [address] [address] Performing Lab: [facility] [address] [phone] [facility] PANEL 4 UREA NITROGEN [MASS/VOLU ME] IN SERUM OR PLASMA 41 mg/dL 9 07/23 H Specimen Type: PLASMA Comment: Estimated Glomerular Filtration Rate (eGFR) calculated using the 2020 Chronic Kidney Disease-Epi demiology (CKD-EPI) Collaborati on creatinine equation; units of measure are mL/min/1.73 m2. Results are only valid for adults (>=18 years) whose serum creatinine is in a steady state. eGFR calculation s are not valid for patients with acute kidney injury and for patients on dialysis. Creatinine- based estimates of kidney function may also be inaccurate in patients with reduced creatinine generation due to decreased muscle mass (e.g., malnutritio n, severe hypoalbumin emia, sarcopenia, chronic neuromuscul ar disease, amputations , severe heart failure or liver disease) and in patients with increased creatinine generation due to increased muscle mass (e.g., muscle builders, anabolic steroids) or increased dietary intake. As drug clearance is proportiona l to total GFR and not GFR indexed to body surface area (BSA), in individuals with a BSA substantial ly different than 1.73 m2, drug dosing should be based on the reported eGFR value de-indexed from BSA by multiplying by the individual' s BSA and dividing by 1.73. CKD is diagnosed based on abnormaliti es of kidney structure or function, present for >3 months, with implication s for health and disease. CKD is classified and staged based on cause, eGFR and albuminuria (quantified as urine albumin to creatinine ratio). An eGFR >60 mL/min/1.73 m2 in the absence of increased urine albumin excretion or structural abnormaliti es does not represent CKD. eGFR CKD Interpretat ion (mL/min/1.7 3 m2) stage >=90 G1 Normal 60-89 G2 Mild decrease 45-59 G3A Mild to moderate decrease 30-44 G3B Moderate to severe decrease 15-29 G4 Severe decrease <15 G5 Kidney failure Ordering Provider: MAKENZIE GAY Report Released Date/Time: Jun 25, 2024 10:29 AM Reporting Lab: [facility] [address] [phone] Performing Lab: [facility] [address] [phone] [facility] PANEL 4 GLUCOSE [MASS/VOLU ME] IN SERUM OR PLASMA 113 mg/dL 74 - 100 07/23 H Specimen Type: PLASMA Comment: Estimated Glomerular Filtration Rate (eGFR) calculated using the 2020 Chronic Kidney Disease-Epi demiology (CKD-EPI) Collaborati on creatinine equation; units of measure are mL/min/1.73 m2. Results are only valid for adults (>=18 years) whose serum creatinine is in a steady state. eGFR calculation s are not valid for patients with acute kidney injury and for patients on dialysis. Creatinine- based estimates of kidney function may also be inaccurate in patients with reduced creatinine generation due to decreased muscle mass (e.g., malnutritio n, severe hypoalbumin emia, sarcopenia, chronic neuromuscul ar disease, amputations , severe heart failure or liver disease) and in patients with increased creatinine generation due to increased muscle mass (e.g., muscle builders, anabolic steroids) or increased dietary intake. As drug clearance is proportiona l to total GFR and not GFR indexed to body surface area (BSA), in individuals with a BSA substantial ly different than 1.73 m2, drug dosing should be based on the reported eGFR value de-indexed from BSA by multiplying by the individual' s BSA and dividing by 1.73. CKD is diagnosed based on abnormaliti es of kidney structure or function, present for >3 months, with implication s for health and disease. CKD is classified and staged based on cause, eGFR and albuminuria (quantified as urine albumin to creatinine ratio). An eGFR >60 mL/min/1.73 m2 in the absence of increased urine albumin excretion or structural abnormaliti es does not represent CKD. eGFR CKD Interpretat ion (mL/min/1.7 3 m2) stage >=90 G1 Normal 60-89 G2 Mild decrease 45-59 G3A Mild to moderate decrease 30-44 G3B Moderate to severe decrease 15-29 G4 Severe decrease <15 G5 Kidney failure Ordering Provider: MAKENZIE GAY Report Released Date/Time: Jun 25, 2024 10:29 AM Reporting Lab: [facility] [address] [phone] Performing Lab: [facility] [address] [phone] [facility] PANEL 4 SODIUM [MOLES/VOL UME] IN SERUM OR PLASMA 139 mmol/L 136 - 145 07/23 Specimen Type: PLASMA Comment: Estimated Glomerular Filtration Rate (eGFR) calculated using the 2020 Chronic Kidney Disease-Epi demiology (CKD-EPI) Collaborati on creatinine equation; units of measure are mL/min/1.73 m2. Results are only valid for adults (>=18 years) whose serum creatinine is in a steady state. eGFR calculation s are not valid for patients with acute kidney injury and for patients on dialysis. Creatinine- based estimates of kidney function may also be inaccurate in patients with reduced creatinine generation due to decreased muscle mass (e.g., malnutritio n, severe hypoalbumin emia, sarcopenia, chronic neuromuscul ar disease, amputations , severe heart failure or liver disease) and in patients with increased creatinine generation due to increased muscle mass (e.g., muscle builders, anabolic steroids) or increased dietary intake. As drug clearance is proportiona l to total GFR and not GFR indexed to body surface area (BSA), in individuals with a BSA substantial ly different than 1.73 m2, drug dosing should be based on the reported eGFR value de-indexed from BSA by multiplying by the individual' s BSA and dividing by 1.73. CKD is diagnosed based on abnormaliti es of kidney structure or function, present for >3 months, with implication s for health and disease. CKD is classified and staged based on cause, eGFR and albuminuria (quantified as urine albumin to creatinine ratio). An eGFR >60 mL/min/1.73 m2 in the absence of increased urine albumin excretion or structural abnormaliti es does not represent CKD. eGFR CKD Interpretat ion (mL/min/1.7 3 m2) stage >=90 G1 Normal 60-89 G2 Mild decrease 45-59 G3A Mild to moderate decrease 30-44 G3B Moderate to severe decrease 15-29 G4 Severe decrease <15 G5 Kidney failure Ordering Provider: MAKENZIE GAY Report Released Date/Time: Jun 25, 2024 10:29 AM Reporting Lab: [facility] [address] [phone] Performing Lab: [facility] [address] [phone] [facility] PANEL 4 POTASSIUM [MOLES/VOL UME] IN SERUM OR PLASMA 5.1 mmol/L 3.5 - 5.1 07/23 Specimen Type: PLASMA Comment: Estimated Glomerular Filtration Rate (eGFR) calculated using the 2020 Chronic Kidney Disease-Epi demiology (CKD-EPI) Collaborati on creatinine equation; units of measure are mL/min/1.73 m2. Results are only valid for adults (>=18 years) whose serum creatinine is in a steady state. eGFR calculation s are not valid for patients with acute kidney injury and for patients on dialysis. Creatinine- based estimates of kidney function may also be inaccurate in patients with reduced creatinine generation due to decreased muscle mass (e.g., malnutritio n, severe hypoalbumin emia, sarcopenia, chronic neuromuscul ar disease, amputations , severe heart failure or liver disease) and in patients with increased creatinine generation due to increased muscle mass (e.g., muscle builders, anabolic steroids) or increased dietary intake. As drug clearance is proportiona l to total GFR and not GFR indexed to body surface area (BSA), in individuals with a BSA substantial ly different than 1.73 m2, drug dosing should be based on the reported eGFR value de-indexed from BSA by multiplying by the individual' s BSA and dividing by 1.73. CKD is diagnosed based on abnormaliti es of kidney structure or function, present for >3 months, with implication s for health and disease. CKD is classified and staged based on cause, eGFR and albuminuria (quantified as urine albumin to creatinine ratio). An eGFR >60 mL/min/1.73 m2 in the absence of increased urine albumin excretion or structural abnormaliti es does not represent CKD. eGFR CKD Interpretat ion (mL/min/1.7 3 m2) stage >=90 G1 Normal 60-89 G2 Mild decrease 45-59 G3A Mild to moderate decrease 30-44 G3B Moderate to severe decrease 15-29 G4 Severe decrease <15 G5 Kidney failure Ordering Provider: MAKENZIE GAY Report Released Date/Time: Jun 25, 2024 10:29 AM Reporting Lab: [facility] [address] [phone] Performing Lab: [facility] [address] [phone] [facility] PANEL 4 CHLORIDE [MOLES/VOL UME] IN SERUM OR PLASMA 113 mmol/L 98 - 107 07/23 H Specimen Type: PLASMA Comment: Estimated Glomerular Filtration Rate (eGFR) calculated using the 2020 Chronic Kidney Disease-Epi demiology (CKD-EPI) Collaborati on creatinine equation; units of measure are mL/min/1.73 m2. Results are only valid for adults (>=18 years) whose serum creatinine is in a steady state. eGFR calculation s are not valid for patients with acute kidney injury and for patients on dialysis. Creatinine- based estimates of kidney function may also be inaccurate in patients with reduced creatinine generation due to decreased muscle mass (e.g., malnutritio n, severe hypoalbumin emia, sarcopenia, chronic neuromuscul ar disease, amputations , severe heart failure or liver disease) and in patients with increased creatinine generation due to increased muscle mass (e.g., muscle builders, anabolic steroids) or increased dietary intake. As drug clearance is proportiona l to total GFR and not GFR indexed to body surface area (BSA), in individuals with a BSA substantial ly different than 1.73 m2, drug dosing should be based on the reported eGFR value de-indexed from BSA by multiplying by the individual' s BSA and dividing by 1.73. CKD is diagnosed based on abnormaliti es of kidney structure or function, present for >3 months, with implication s for health and disease. CKD is classified and staged based on cause, eGFR and albuminuria (quantified as urine albumin to creatinine ratio). An eGFR >60 mL/min/1.73 m2 in the absence of increased urine albumin excretion or structural abnormaliti es does not represent CKD. eGFR CKD Interpretat ion (mL/min/1.7 3 m2) stage >=90 G1 Normal 60-89 G2 Mild decrease 45-59 G3A Mild to moderate decrease 30-44 G3B Moderate to severe decrease 15-29 G4 Severe decrease <15 G5 Kidney failure Ordering Provider: MAKENZIE GAY Report Released Date/Time: Jun 25, 2024 10:29 AM Reporting Lab: [facility] [address] [phone] Performing Lab: [facility] [address] [phone] [facility] MorejonChuy [facility] PANEL 4 CARBON DIOXIDE, TOTAL [MOLES/VOL UME] IN SERUM OR PLASMA 16 mmol/L - 07/23 L Specimen Type: PLASMA Comment: Estimated Glomerular Filtration Rate (eGFR) calculated using the 2020 Chronic Kidney Disease-Epi demiology (CKD-EPI) Collaborati on creatinine equation; units of measure are mL/min/1.73 m2. Results are only valid for adults (>=18 years) whose serum creatinine is in a steady state. eGFR calculation s are not valid for patients with acute kidney injury and for patients on dialysis. Creatinine- based estimates of kidney function may also be inaccurate in patients with reduced creatinine generation due to decreased muscle mass (e.g., malnutritio n, severe hypoalbumin emia, sarcopenia, chronic neuromuscul ar disease, amputations , severe heart failure or liver disease) and in patients with increased creatinine generation due to increased muscle mass (e.g., muscle builders, anabolic steroids) or increased dietary intake. As drug clearance is proportiona l to total GFR and not GFR indexed to body surface area (BSA), in individuals with a BSA substantial ly different than 1.73 m2, drug dosing should be based on the reported eGFR value de-indexed from BSA by multiplying by the individual' s BSA and dividing by 1.73. CKD is diagnosed based on abnormaliti es of kidney structure or function, present for >3 months, with implication s for health and disease. CKD is classified and staged based on cause, eGFR and albuminuria (quantified as urine albumin to creatinine ratio). An eGFR >60 mL/min/1.73 m2 in the absence of increased urine albumin excretion or structural abnormaliti es does not represent CKD. eGFR CKD Interpretat ion (mL/min/1.7 3 m2) stage >=90 G1 Normal 60-89 G2 Mild decrease 45-59 G3A Mild to moderate decrease 30-44 G3B Moderate to severe decrease 15-29 G4 Severe decrease <15 G5 Kidney failure Ordering Provider: MAKENZIE GAY Report Released Date/Time: Jun 25, 2024 10:29 AM Reporting Lab: [facility] [address] [address] Performing Lab: [facility] [address] [address] [facility] PANEL 4 CALCIUM [MASS/VOLU ME] IN SERUM OR PLASMA 9.6 mg/dL 8.4 - 10.2 07/23 Specimen Type: PLASMA Comment: Estimated Glomerular Filtration Rate (eGFR) calculated using the 2020 Chronic Kidney Disease-Epi demiology (CKD-EPI) Collaborati on creatinine equation; units of measure are mL/min/1.73 m2. Results are only valid for adults (>=18 years) whose serum creatinine is in a steady state. eGFR calculation s are not valid for patients with acute kidney injury and for patients on dialysis. Creatinine- based estimates of kidney function may also be inaccurate in patients with reduced creatinine generation due to decreased muscle mass (e.g., malnutritio n, severe hypoalbumin emia, sarcopenia, chronic neuromuscul ar disease, amputations , severe heart failure or liver disease) and in patients with increased creatinine generation due to increased muscle mass (e.g., muscle builders, anabolic steroids) or increased dietary intake. As drug clearance is proportiona l to total GFR and not GFR indexed to body surface area (BSA), in individuals with a BSA substantial ly different than 1.73 m2, drug dosing should be based on the reported eGFR value de-indexed from BSA by multiplying by the individual' s BSA and dividing by 1.73. CKD is diagnosed based on abnormaliti es of kidney structure or function, present for >3 months, with implication s for health and disease. CKD is classified and staged based on cause, eGFR and albuminuria (quantified as urine albumin to creatinine ratio). An eGFR >60 mL/min/1.73 m2 in the absence of increased urine albumin excretion or structural abnormaliti es does not represent CKD. eGFR CKD Interpretat ion (mL/min/1.7 3 m2) stage >=90 G1 Normal 60-89 G2 Mild decrease 45-59 G3A Mild to moderate decrease 30-44 G3B Moderate to severe decrease 15-29 G4 Severe decrease <15 G5 Kidney failure Ordering Provider: MAKENZIE GAY Report Released Date/Time: Jun 25, 2024 10:29 AM Reporting Lab: [facility] [address] [address] Performing Lab: [facility] [address] [address] [facility] PANEL 4 PHOSPHATE [MASS/VOLU ME] IN SERUM OR PLASMA 4.8 mg/dL 2.3 - 4.7 07/23 H Specimen Type: PLASMA Comment: Estimated Glomerular Filtration Rate (eGFR) calculated using the 2020 Chronic Kidney Disease-Epi demiology (CKD-EPI) Collaborati on creatinine equation; units of measure are mL/min/1.73 m2. Results are only valid for adults (>=18 years) whose serum creatinine is in a steady state. eGFR calculation s are not valid for patients with acute kidney injury and for patients on dialysis. Creatinine- based estimates of kidney function may also be inaccurate in patients with reduced creatinine generation due to decreased muscle mass (e.g., malnutritio n, severe hypoalbumin emia, sarcopenia, chronic neuromuscul ar disease, amputations , severe heart failure or liver disease) and in patients with increased creatinine generation due to increased muscle mass (e.g., muscle builders, anabolic steroids) or increased dietary intake. As drug clearance is proportiona l to total GFR and not GFR indexed to body surface area (BSA), in individuals with a BSA substantial ly different than 1.73 m2, drug dosing should be based on the reported eGFR value de-indexed from BSA by multiplying by the individual' s BSA and dividing by 1.73. CKD is diagnosed based on abnormaliti es of kidney structure or function, present for >3 months, with implication s for health and disease. CKD is classified and staged based on cause, eGFR and albuminuria (quantified as urine albumin to creatinine ratio). An eGFR >60 mL/min/1.73 m2 in the absence of increased urine albumin excretion or structural abnormaliti es does not represent CKD. eGFR CKD Interpretat ion (mL/min/1.7 3 m2) stage >=90 G1 Normal 60-89 G2 Mild decrease 45-59 G3A Mild to moderate decrease 30-44 G3B Moderate to severe decrease 15-29 G4 Severe decrease <15 G5 Kidney failure Ordering Provider: MAKENZIE GAY Report Released Date/Time: Jun 25, 2024 10:29 AM Reporting Lab: [facility] WE[facility] [address] [facility] [phone] Performing Lab: DICKHEATHDarleenJanes WEAVER [facility] [address] [facility] [address] [facility]URILL[facility] PANEL 4 ALBUMIN [MASS/VOLU ME] IN SERUM OR PLASMA 5.0 g/dL 3.5 - 5.2 07/23 Specimen Type: PLASMA Comment: Estimated Glomerular Filtration Rate (eGFR) calculated using the 2020 Chronic Kidney Disease-Epi demiology (CKD-EPI) Collaborati on creatinine equation; units of measure are mL/min/1.73 m2. Results are only valid for adults (>=18 years) whose serum creatinine is in a steady state. eGFR calculation s are not valid for patients with acute kidney injury and for patients on dialysis. Creatinine- based estimates of kidney function may also be inaccurate in patients with reduced creatinine generation due to decreased muscle mass (e.g., malnutritio n, severe hypoalbumin emia, sarcopenia, chronic neuromuscul ar disease, amputations , severe heart failure or liver disease) and in patients with increased creatinine generation due to increased muscle mass (e.g., muscle builders, anabolic steroids) or increased dietary intake. As drug clearance is proportiona l to total GFR and not GFR indexed to body surface area (BSA), in individuals with a BSA substantial ly different than 1.73 m2, drug dosing should be based on the reported eGFR value de-indexed from BSA by multiplying by the individual' s BSA and dividing by 1.73. CKD is diagnosed based on abnormaliti es of kidney structure or function, present for >3 months, with implication s for health and disease. CKD is classified and staged based on cause, eGFR and albuminuria (quantified as urine albumin to creatinine ratio). An eGFR >60 mL/min/1.73 m2 in the absence of increased urine albumin excretion or structural abnormaliti es does not represent CKD. eGFR CKD Interpretat ion (mL/min/1.7 3 m2) stage >=90 G1 Normal 60-89 G2 Mild decrease 45-59 G3A Mild to moderate decrease 30-44 G3B Moderate to severe decrease 15-29 G4 Severe decrease <15 G5 Kidney failure Ordering Provider: MAKENZIE GAY Report Released Date/Time: Jun 25, 2024 10:29 AM Reporting Lab: [facility] [address] [facility] [phone] Performing Lab: [facility] WEAV[facility] [address] [facility] [phone] [facility] PANEL 4 ANION GAP 3 IN SERUM OR PLASMA 10 meq/L 3 - 19 07/23 Specimen Type: PLASMA Comment: Estimated Glomerular Filtration Rate (eGFR) calculated using the 2020 Chronic Kidney Disease-Epi demiology (CKD-EPI) Collaborati on creatinine equation; units of measure are mL/min/1.73 m2. Results are only valid for adults (>=18 years) whose serum creatinine is in a steady state. eGFR calculation s are not valid for patients with acute kidney injury and for patients on dialysis. Creatinine- based estimates of kidney function may also be inaccurate in patients with reduced creatinine generation due to decreased muscle mass (e.g., malnutritio n, severe hypoalbumin emia, sarcopenia, chronic neuromuscul ar disease, amputations , severe heart failure or liver disease) and in patients with increased creatinine generation due to increased muscle mass (e.g., muscle builders, anabolic steroids) or increased dietary intake. As drug clearance is proportiona l to total GFR and not GFR indexed to body surface area (BSA), in individuals with a BSA substantial ly different than 1.73 m2, drug dosing should be based on the reported eGFR value de-indexed from BSA by multiplying by the individual' s BSA and dividing by 1.73. CKD is diagnosed based on abnormaliti es of kidney structure or function, present for >3 months, with implication s for health and disease. CKD is classified and staged based on cause, eGFR and albuminuria (quantified as urine albumin to creatinine ratio). An eGFR >60 mL/min/1.73 m2 in the absence of increased urine albumin excretion or structural abnormaliti es does not represent CKD. eGFR CKD Interpretat ion (mL/min/1.7 3 m2) stage >=90 G1 Normal 60-89 G2 Mild decrease 45-59 G3A Mild to moderate decrease 30-44 G3B Moderate to severe decrease 15-29 G4 Severe decrease <15 G5 Kidney failure Ordering Provider: MAKENZIE GAY Report Released Date/Time: Jun 25, 2024 10:29 AM Reporting Lab: [facility] [address] [address] Performing Lab: [facility] [address] [address] [facility] PANEL 4 GLOMERULAR FILTRATION RATE/1.73 SQ M.PREDICTE D [VOLUME RATE/AREA] IN SERUM, PLASMA OR BLOOD BY CREATININE -BASED FORMULA (CKD-EPI 2020) 18 07/23 Specimen Type: PLASMA Comment: Estimated Glomerular Filtration Rate (eGFR) calculated using the 2020 Chronic Kidney Disease-Epi demiology (CKD-EPI) Collaborati on creatinine equation; units of measure are mL/min/1.73 m2. Results are only valid for adults (>=18 years) whose serum creatinine is in a steady state. eGFR calculation s are not valid for patients with acute kidney injury and for patients on dialysis. Creatinine- based estimates of kidney function may also be inaccurate in patients with reduced creatinine generation due to decreased muscle mass (e.g., malnutritio n, severe hypoalbumin emia, sarcopenia, chronic neuromuscul ar disease, amputations , severe heart failure or liver disease) and in patients with increased creatinine generation due to increased muscle mass (e.g., muscle builders, anabolic steroids) or increased dietary intake. As drug clearance is proportiona l to total GFR and not GFR indexed to body surface area (BSA), in individuals with a BSA substantial ly different than 1.73 m2, drug dosing should be based on the reported eGFR value de-indexed from BSA by multiplying by the individual' s BSA and dividing by 1.73. CKD is diagnosed based on abnormaliti es of kidney structure or function, present for >3 months, with implication s for health and disease. CKD is classified and staged based on cause, eGFR and albuminuria (quantified as urine albumin to creatinine ratio). An eGFR >60 mL/min/1.73 m2 in the absence of increased urine albumin excretion or structural abnormaliti es does not represent CKD. eGFR CKD Interpretat ion (mL/min/1.7 3 m2) stage >=90 G1 Normal 60-89 G2 Mild decrease 45-59 G3A Mild to moderate decrease 30-44 G3B Moderate to severe decrease 15-29 G4 Severe decrease <15 G5 Kidney failure Ordering Provider: MAKENZIE GAY Report Released Date/Time: Jun 25, 2024 10:29 AM Reporting Lab: [address] [address] Performing Lab: [address] [address] [facility] DRUG SCREEN EXPANDED IN-HOUSE TETRAHYDRO CANNABINOL [PRESENCE] IN URINE NEG Cutoff < 50 - 50 07/08 Specimen Type: URINE Comment: Screening method results are unconfirmed and are for medical use only. Unconfirmed screening results must not be used for non-medical purposes. Opiates test most sensitive for morphine, codeine and heroin and less sensitive for hydrocodone and hydromorpho ne where higher concentrati ons are needed for cut-off detection. Drugs of abuse screening is a preliminary analytical test result. A more specific alternate chemical method (GC/MS) must be used to obtain a confirmed analytical result. This assay provides a preliminary unconfirmed analytical test result that may be suitable for clinical management of patients in certain situations. Drug-test results should be interpreted in the context of clinical information . Patient metabolic characteris tics can affect test outcome. Ordering Provider: FAHAD BLOCK Report Released Date/Time: Jun 16, 2024 10:42 AM Reporting Lab: [address] [address] Performing Lab: [address] [address] [facility] DRUG SCREEN EXPANDED IN-HOUSE AMPHETAMIN ES [PRESENCE] IN URINE NEG Cutoff < 1000 - 1000 07/08 Specimen Type: URINE Comment: Screening method results are unconfirmed and are for medical use only. Unconfirmed screening results must not be used for non-medical purposes. Opiates test most sensitive for morphine, codeine and heroin and less sensitive for hydrocodone and hydromorpho ne where higher concentrati ons are needed for cut-off detection. Drugs of abuse screening is a preliminary analytical test result. A more specific alternate chemical method (GC/MS) must be used to obtain a confirmed analytical result. This assay provides a preliminary unconfirmed analytical test result that may be suitable for clinical management of patients in certain situations. Drug-test results should be interpreted in the context of clinical information . Patient metabolic characteris tics can affect test outcome. Ordering Provider: FAHAD BLOCK Report Released Date/Time: Jun 16, 2024 10:42 AM Reporting Lab: [address] [address] Performing Lab: [address] [address] [facility] DRUG SCREEN EXPANDED IN-HOUSE BARBITURAT ES [PRESENCE] IN URINE BY SCREEN METHOD NEG Cutoff < 200 - 200 07/08 Specimen Type: URINE Comment: Screening method results are unconfirmed and are for medical use only. Unconfirmed screening results must not be used for non-medical purposes. Opiates test most sensitive for morphine, codeine and heroin and less sensitive for hydrocodone and hydromorpho ne where higher concentrati ons are needed for cut-off detection. Drugs of abuse screening is a preliminary analytical test result. A more specific alternate chemical method (GC/MS) must be used to obtain a confirmed analytical result. This assay provides a preliminary unconfirmed analytical test result that may be suitable for clinical management of patients in certain situations. Drug-test results should be interpreted in the context of clinical information . Patient metabolic characteris tics can affect test outcome. Ordering Provider: FAHAD BLOCK Report Released Date/Time: Jun 16, 2024 10:42 AM Reporting Lab: [address] [address] Performing Lab: [address] [address] [facility] DRUG SCREEN EXPANDED IN-HOUSE BENZODIAZE PINES [PRESENCE] IN URINE BY SCREEN METHOD NEG Cutoff < 200 - 200 07/08 Specimen Type: URINE Comment: Screening method results are unconfirmed and are for medical use only. Unconfirmed screening results must not be used for non-medical purposes. Opiates test most sensitive for morphine, codeine and heroin and less sensitive for hydrocodone and hydromorpho ne where higher concentrati ons are needed for cut-off detection. Drugs of abuse screening is a preliminary analytical test result. A more specific alternate chemical method (GC/MS) must be used to obtain a confirmed analytical result. This assay provides a preliminary unconfirmed analytical test result that may be suitable for clinical management of patients in certain situations. Drug-test results should be interpreted in the context of clinical information . Patient metabolic characteris tics can affect test outcome. Ordering Provider: FAHAD BLOCK Report Released Date/Time: Jun 16, 2024 10:42 AM Reporting Lab: [address] [address] Performing Lab: [address] [address] [facility] DRUG SCREEN EXPANDED IN-HOUSE BENZOYLECG ONINE [PRESENCE] IN URINE NEG Cutoff < 300 - 300 07/08 Specimen Type: URINE Comment: Screening method results are unconfirmed and are for medical use only. Unconfirmed screening results must not be used for non-medical purposes. Opiates test most sensitive for morphine, codeine and heroin and less sensitive for hydrocodone and hydromorpho ne where higher concentrati ons are needed for cut-off detection. Drugs of abuse screening is a preliminary analytical test result. A more specific alternate chemical method (GC/MS) must be used to obtain a confirmed analytical result. This assay provides a preliminary unconfirmed analytical test result that may be suitable for clinical management of patients in certain situations. Drug-test results should be interpreted in the context of clinical information . Patient metabolic characteris tics can affect test outcome. Ordering Provider: FAHAD BLOCK Report Released Date/Time: Jun 16, 2024 10:42 AM Reporting Lab: [address] [address] Performing Lab: [address] [address] [facility] DRUG SCREEN EXPANDED IN-HOUSE OPIATES [PRESENCE] IN URINE BY SCREEN METHOD POS Cutoff < 300 - 300 07/08 Specimen Type: URINE Comment: Screening method results are unconfirmed and are for medical use only. Unconfirmed screening results must not be used for non-medical purposes. Opiates test most sensitive for morphine, codeine and heroin and less sensitive for hydrocodone and hydromorpho ne where higher concentrati ons are needed for cut-off detection. Drugs of abuse screening is a preliminary analytical test result. A more specific alternate chemical method (GC/MS) must be used to obtain a confirmed analytical result. This assay provides a preliminary unconfirmed analytical test result that may be suitable for clinical management of patients in certain situations. Drug-test results should be interpreted in the context of clinical information . Patient metabolic characteris tics can affect test outcome. Ordering Provider: FAHAD BLOCK Report Released Date/Time: Jun 16, 2024 10:42 AM Reporting Lab: [address] [address] Performing Lab: [address] [address] [facility] DRUG SCREEN EXPANDED IN-HOUSE METHADONE [PRESENCE] IN URINE NEG Cutoff < 300 - 300 07/08 Specimen Type: URINE Comment: Screening method results are unconfirmed and are for medical use only. Unconfirmed screening results must not be used for non-medical purposes. Opiates test most sensitive for morphine, codeine and heroin and less sensitive for hydrocodone and hydromorpho ne where higher concentrati ons are needed for cut-off detection. Drugs of abuse screening is a preliminary analytical test result. A more specific alternate chemical method (GC/MS) must be used to obtain a confirmed analytical result. This assay provides a preliminary unconfirmed analytical test result that may be suitable for clinical management of patients in certain situations. Drug-test results should be interpreted in the context of clinical information . Patient metabolic characteris tics can affect test outcome. Ordering Provider: FAHAD BLOCK Report Released Date/Time: Jun 16, 2024 10:42 AM Reporting Lab: [address] [address] Performing Lab: [address] [address] [facility] DRUG SCREEN EXPANDED IN-HOUSE OXYCODONE [PRESENCE] IN URINE NEG Cutoff < 200 - 200 07/08 Specimen Type: URINE Comment: Screening method results are unconfirmed and are for medical use only. Unconfirmed screening results must not be used for non-medical purposes. Opiates test most sensitive for morphine, codeine and heroin and less sensitive for hydrocodone and hydromorpho ne where higher concentrati ons are needed for cut-off detection. Drugs of abuse screening is a preliminary analytical test result. A more specific alternate chemical method (GC/MS) must be used to obtain a confirmed analytical result. This assay provides a preliminary unconfirmed analytical test result that may be suitable for clinical management of patients in certain situations. Drug-test results should be interpreted in the context of clinical information . Patient metabolic characteris tics can affect test outcome. Ordering Provider: FAHAD BLOCK Report Released Date/Time: Jun 16, 2024 10:42 AM Reporting Lab: [address] [address] Performing Lab: [address] [address] [facility] DRUG SCREEN EXPANDED IN-HOUSE BUPRENORPH INE+NORBUP RENORPHINE [PRESENCE] IN URINE NEG Cutoff < 5 - 5 07/08 Specimen Type: URINE Comment: Screening method results are unconfirmed and are for medical use only. Unconfirmed screening results must not be used for non-medical purposes. Opiates test most sensitive for morphine, codeine and heroin and less sensitive for hydrocodone and hydromorpho ne where higher concentrati ons are needed for cut-off detection. Drugs of abuse screening is a preliminary analytical test result. A more specific alternate chemical method (GC/MS) must be used to obtain a confirmed analytical result. This assay provides a preliminary unconfirmed analytical test result that may be suitable for clinical management of patients in certain situations. Drug-test results should be interpreted in the context of clinical information . Patient metabolic characteris tics can affect test outcome. Ordering Provider: FAHAD BLOCK Report Released Date/Time: Jun 16, 2024 10:42 AM Reporting Lab: [address] [address] Performing Lab: [address] [address] [facility] DRUG SCREEN EXPANDED IN-HOUSE FENTANYL SCREEN IN-HOUSE NEG Cutoff < 1 - 1 07/08 Specimen Type: URINE Comment: Screening method results are unconfirmed and are for medical use only. Unconfirmed screening results must not be used for non-medical purposes. Opiates test most sensitive for morphine, codeine and heroin and less sensitive for hydrocodone and hydromorpho ne where higher concentrati ons are needed for cut-off detection. Drugs of abuse screening is a preliminary analytical test result. A more specific alternate chemical method (GC/MS) must be used to obtain a confirmed analytical result. This assay provides a preliminary unconfirmed analytical test result that may be suitable for clinical management of patients in certain situations. Drug-test results should be interpreted in the context of clinical information . Patient metabolic characteris tics can affect test outcome. Ordering Provider: FAHAD BLOCK Report Released Date/Time: Jun 16, 2024 10:42 AM Reporting Lab: [place] [id number] Performing Lab: [place] [id number] [facility] PHOSPHOR US PHOSPHATE [MASS/VOLU ME] IN SERUM OR PLASMA 5.1 mg/dL 2.3 - 4.7 05/17 H Specimen Type: PLASMA No comment entered. Ordering Provider: FAHAD BLOCK Report Released Date/Time: May 10, 2024 10:41 PM Reporting Lab: [address] [address] Performing Lab: [place] [id number] [facility] IONIZED CALCIUM CALCIUM.IO NIZED [MOLES/VOL UME] IN BLOOD 1.22 mmol/L 1.15 - 1.29 05/17 Specimen Type: BLOOD No comment entered. Ordering Provider: FAHAD BLOCK Report Released Date/Time: May 10, 2024 10:41 PM Reporting Lab: [address] [address] Performing Lab: [place] [id number] [facility] PTH INTACT (ELLINGTON) PARATHYRIN .INTACT [MASS/VOLU ME] IN SERUM OR PLASMA 105.1 pg/mL 8.7 - 77.1 05/17 H Specimen Type: PLASMA Comment: For intraoperat sarah testing samples drawn 10 minutes post resection should decrease >50% from the highest baseline. STAT assay time 18 minutes. Dialysis patients are typically maintained by using multiples of the reference range upper limit: this is the Ellington assay, a 2nd generation intact PTH method. Hemolysis and high levels of protein can interfere. Heterophili c antibodies can interfere. Ordering Provider: FAHAD BLOCK Report Released Date/Time: May 10, 2024 10:41 PM Reporting Lab: [place] [id number] Performing Lab: [place] [id number] [place] [address] MICROALB UMIN/CRE AT RATIO CREATININE [MASS/VOLU ME] IN URINE 77.4 mg/dL 05/10 Specimen Type: URINE No comment entered. Ordering Provider: FAHAD BLOCK Report Released Date/Time: May 10, 2024 08:34 AM Reporting Lab: [place] [id number] Performing Lab: [place] [id number] [facility] MICROALB UMIN/CRE AT RATIO MICROALBUM IN [MASS/VOLU ME] IN URINE 370.8 mg/L 0.0 - 30.0 05/10 H Specimen Type: URINE No comment entered. Ordering Provider: FAHAD BLOCK Report Released Date/Time: May 10, 2024 08:34 AM Reporting Lab: [place] [id number] Performing Lab: [place] [id number] [facility] MICROALB UMIN/CRE AT RATIO MICROALBUM IN/CREATIN INE [MASS RATIO] IN URINE 479.1 ug/mg{cr eat} 05/10 Specimen Type: URINE No comment entered. Ordering Provider: FAHAD BLOCK Report Released Date/Time: May 10, 2024 08:34 AM Reporting Lab: [place] [id number] Performing Lab: [facility] [address] [facility] [address] [facility] Vital Signs Combined list of inpatient and outpatient Vital Signs from Department of Defense and Veterans Affairs, ranging from 12 months to all on record, depending upon the facility. Vital Sign Value Date Comments Source SYSTOLIC BLOOD PRESSURE 118 07/23/2024 13:10:00 [facility] DIASTOLIC BLOOD PRESSURE 64 07/23/2024 13:10:00 [facility] PULSE OXIMETRY 97 07/23/2024 13:10:00 [facility] WEIGHT 206.8 07/23/2024 13:10:00 [place] [facility] BMI 29 kg/m2 07/23/2024 13:10:00 [place] [facility] PAIN 8 07/23/2024 13:10:00 [place] [facility] TEMPERATURE 97.7 07/23/2024 13:10:00 [place] [facility] PULSE 85 07/23/2024 13:10:00 [place] [facility] SYSTOLIC BLOOD PRESSURE 132 05/10/2024 07:54:04 [place] [facility] DIASTOLIC BLOOD PRESSURE 75 05/10/2024 07:54:04 [place] [facility] PULSE OXIMETRY 99 05/10/2024 07:54:04 [place] [facility] WEIGHT 203 05/10/2024 07:54:04 [place] [facility] BMI 28 kg/m2 05/10/2024 07:54:04 [place] [facility] PAIN 0 05/10/2024 07:54:04 [place] [facility] HEIGHT 71 05/10/2024 07:54:04 [place] [facility] TEMPERATURE 98.1 05/10/2024 07:54:04 [place] [facility] PULSE 99 05/10/2024 07:54:04 [place] [facility] Encounters Combined list of: 1) Encounters from Department of Veterans Affairs facilities going backup to the last 18 months, not all [place] inpatient encounters are included; 2) Encounters from the Department of Defense facilities going backup to 280 months. Location Location Details Encounter Type Encounter Number Reason For Visit Attending Provider ADM Date DC Date Status Disposition Source [facility] Outpatient Encounter [id number] 06/09 [place] [facility] OFFICE O/P NEW LOW 30 MIN [id number] Diagnos is: ICD-10- CM H25.813 Combine d forms of age-rel ated catarac t, bilater al KATE ARMSTRONG 07/03 [place] [facility] Outpatient Encounter [id number] 07/03 [place] [facility] Outpatient Encounter [id number] 07/03 [place] [facility] ELECTROCAR DIOGRAM COMPLETE [id number] Diagnos is: ICD-10- CM I10 Essenti al (primar y) hyperte AMITA Niño A 07/24 [place] [facility] OFF/OP EST MAY X REQ PHY/QHP [id number] Diagnos is: ICD-10- CM 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 GAURANG Irizarry 07/24 [place] [facility] OFFICE O/P EST MOD 30 MIN [id number] Diagnos is: ICD-10- CM Z01.818 Encount er for other preproc edural examMAKENZIE Raymundo 07/24 [place] [facility] HC PRO PHONE CALL 5-10 MIN [id number] Diagnos is: ICD-10- CM H25.11 Age-rel ated nuclear catarac t, right eye SEBAS,MAR ILYN M 08/08 [place] [facility] Outpatient Encounter [id number] Diagnos is: ICD-10- CM H25.11 Age-rel ated nuclear catarac t, right eye MIKAELA HAM 08/10 [place] [facility] Outpatient Encounter [id number] NALDO ANGEL B 08/10 [place] [facility] Outpatient Encounter [id number] BON,CHANDA HARDY 08/10 [place] [facility] XCAPSL CTRC RMVL W/O ECP [id number] TREVER [place] 08/10 [place] [facility] 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 [id number] Diagnos is: ICD-10- CM 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 NURYS Ham 08/10 [place] [facility] [place] [facility] Outpatient Encounter [id number] NALDO ANGEL B 08/10 [place] [facility] POSTOP FOLLOW-UP VISIT [id number] Diagnos is: ICD-10- CM Z48.810 Encntr for surgica l aftcr fol surgery on the sense organs INDER DE LOMELI,A NA 08/11 [place] [facility] INTRM OPH EXAM EST PATIENT [id number] Diagnos is: ICD-10- CM Z48.810 Encntr for surgica l aftcr fol surgery on the sense organs LESLIE JOHNS R 08/17 [place] [facility] Outpatient Encounter [id number] 08/18 [place] [facility] HC PRO PHONE CALL 5-10 MIN [id number] Diagnos is: ICD-10- CM R05.9 Cough, unspeci fied NICHOLE,WANG NNAH R 08/18 [place] [facility] Outpatient Encounter [id number] LEIGHTONSUZY RLENE H 08/21 [place] [facility] Outpatient Encounter [id number] SUZY MANZANARES RLENE H 08/21 [place] [facility] POSTOP FOLLOW-UP VISIT [id number] Diagnos is: ICD-10- CM Z98.41 Catarac t extract ion status, right eye GAMBOA,ER IC B 09/10 [place] [facility] HC PRO PHONE CALL 5-10 MIN [id number] Diagnos is: ICD-10- CM H25.12 Age-rel ated nuclear catarac t, left eye ALIN MULLEN M 10/03 [place] [facility] Outpatient Encounter [id number] Diagnos is: ICD-10- CM H25.12 Age-rel ated nuclear catarac t, left eye STORM POTTER IE L 10/04 [place] [facility] 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 [id number] Diagnos is: ICD-10- CM 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 KEERTHI Romero L 10/04 [place] [facility] Outpatient Encounter [id number] 10/04 [place] [facility] [facility] Outpatient Encounter [id number] NIKKI COMER A 10/04 [place] [facility] Outpatient Encounter [id number] BON,CHANDA HAYLEY 10/04 [place] [facility] XCAPSL CTRC RMVL W/O ECP [id number] MARIAJOSE PHOENIX 10/04 [place] [facility] [facility] Outpatient Encounter [id number] NIKKI COMER A 10/04 [place] [facility] Outpatient Encounter [id number] NIKKI COMER A 10/04 [place] [facility] POSTOP FOLLOW-UP VISIT [id number] Diagnos is: ICD-10- CM Z48.810 Encntr for surgica l aftcr fol surgery on the sense organs GAMBOA,COLBY ROMEO B 10/05 [place] [facility] POSTOP FOLLOW-UP VISIT [id number] Diagnos is: ICD-10- CM Z48.810 Encntr for surgica l aftcr fol surgery on the sense organs LESLIE JOHNS R 10/10 [place] [facility] Outpatient Encounter [id number] 10/29 [place] [facility] POSTOP FOLLOW-UP VISIT [id number] Diagnos is: ICD-10- CM Z98.42 Catarac t extract ion status, left eye LESLIE JOHNS R 11/07 [place] [facility] OFFICE O/P EST LOW 20 MIN [id number] Diagnos is: ICD-10- CM H04.123 Dry eye syndrom e of bilater al lacrima l glands ANDREA,JJ L 12/11 [place] [facility] Outpatient Encounter [id number] 12/18 [place] Outpatient Encounter [id number] 12/18 [place] Outpatient Encounter [id number] 12/31 [place] [facility] Outpatient Encounter [id number] 01/22 [place] [facility] Outpatient Encounter [id number] 01/22 [place] [facility] Outpatient Encounter [id number] 03/04 [place] [facility] Outpatient Encounter [id number] 03/04 [place] [facility] Outpatient Encounter [id number] 04/12 [place] [facility] QNHP OL DIG ASSMT&MGMT 21+ [id number] Diagnos is: ICD-10- CM 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 LARRYAND REW L 04/15 [place] [facility] Outpatient Encounter [id number] 04/16 [place] Outpatient Encounter [id number] 05/04 [place] [facility] Outpatient Encounter [id number] 05/08 [place] [facility] Outpatient Encounter [id number] 05/08 [place] [facility] Outpatient Encounter [id number] 05/08 [place] [facility] Outpatient Encounter [id number] 05/09 [place] [facility] OFFICE O/P EST MOD 30 MIN [id number] Diagnos is: ICD-10- CM M54.59 Other low back pain KOKAREN,ISAIAS A 05/10 [place] [facility] HC PRO PHONE CALL 5-10 MIN [id number] Diagnos is: ICD-10- CM E11.8 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 MCLEAN,L QUYNH G 05/14 [place] [facility] Outpatient Encounter [id number] 05/14 [place] [facility] HC PRO PHONE CALL 5-10 MIN [id number] Diagnos is: ICD-10- CM R79.9 Abnorma l finding of blood qc chemist ry, unspeci fied MCLEAN,L QUYNH G 05/28 [place] [facility] Outpatient Encounter [id number] 06/14 [place] [facility] Outpatient Encounter [id number] 06/16 [place] [facility] HC PRO PHONE CALL 5-10 MIN [id number] Diagnos is: ICD-10- CM M54.59 Other low back pain DENISE POTTER 06/20 [place] [facility] OFFICE O/P EST MOD 30 MIN [id number] Diagnos is: ICD-10- CM 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 MARIETTA Hilton 07/23 [place] [id number] Diagnos is: ICD-10- CM N18.32 Chronic kidney disease , stage 3b TISHA LEMUS 07/31 [place] [facility] Outpatient Encounter [id number] 08/06 [place] [facility] Outpatient Encounter [id number] 08/06 [place] [facility] Outpatient Encounter [id number] 09/03 [place] [facility] Procedures Combined list of: 1) Procedures from Department of [facility] Affairs facilities going back up to thelast 18 months, not all VA non-surgical procedures are included; 2) All procedures from the Department of Defense facilities. Procedure Procedure Type Code Date Susana Henry e LEFT EYE EXTRACAPSULAR CATARACT EXTRACTION WITH POSTERIOR CHAMBER INTRAOCULAR LENS IMPLANT XCAPSL CTRC RMVL W/O ECP 03406 4 KRISSY PONCE [facility] RIGHT EYE EXTRACAPSULAR CATARACT EXTRACTION WITH POSTERIOR CHAMBER INTRAOCULAR LENS IMPLANT XCAPSL CTRC RMVL W/O ECP 70252 4 DONNA,TREVER K Other Procedure CPT Code(s): RT-RIGHT SIDE, GR-SERVICE BY [place] RESIDENT MICHAEL WEAVER [facility] Social History Combined list of available smoking, tobacco, and other social history from Department of Defense and Veterans Affairs facilities. Social History Type Response Date Comment Source Tobacco smoking status NHIS VA-TOBACCO USER EVERY DAY 05/10/2024 [facility] History of tobacco use VA-TOBACCO USE 30 YEARS OR MORE 05/10/2024 [facility] History of tobacco use [place] USER EVERY DAY 06/02/2023 [facility] History of tobacco use [place]-TO[place] USER EVERY DAY 06/29/2022 [facility] History of tobacco use [place]-TO[place] USER EVERY DAY 07/13/2021 [facility] History of tobacco use VA-TOBACCO USER EVERY DAY 08/07/2020 [facility] of [facility] 12/31/2018 [facility] History of tobacco use V9 CURRENT TOBACCO USER 01/08/2018 [facility] History of tobacco use V9 LIFETIME NON-USER OF TOBACCO 12/15/2016 [facility] History of tobacco use V9 CURRENT TOBACCO USER 09/07/2015 [facility] History of tobacco use V9 CURRENT TOBACCO USER 11/27/2014 [facility] History of tobacco use V9 CURRENT TOBACCO USER 10/16/2013 [facility] History of tobacco use V9 CURRENT TOBACCO USER 06/13/2012 [facility] History of tobacco use V9 CURRENT TOBACCO USER 04/06/2011 [facility] History of tobacco use V9 CURRENT TOBACCO USER 01/06/2010 [facility] History of tobacco use V9 CURRENT TOBACCO USER 12/02/2008 [facility] History of tobacco use V9 CURRENT TOBACCO USER 09/05/2007 [facility] History of tobacco use V9 CURRENT TOBACCO USER 08/10/2006 [facility] History of tobacco use 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 [facility] History of tobacco use HF V9 CURRENT SMOKER 08/16/2005 SMOKES UP TO 2 PACKS/WK [facility] History of tobacco use HF V9 CURRENT NON-SMOKER 08/09/2004 about a week ago [facility] History of tobacco use HF V9 CURRENT NON-SMOKER 07/02/2003 7yrs ago [facility] History of tobacco use HF V9 CURRENT NON-SMOKER 04/26/2002 quit about 5 yrs ago. [facility] Plan of Care List of future care activities from [facility] facilities. Additional future care activities may be listed in the Assessment and Plan section. Date/Time Care Activity Care Activity Detail Facili ty 12/10/2024 AMBULATORY - MEDICINE AMBULATORY - MEDICI [facility] Advance Directives List of completed, amended, or rescinded Advance Directives on record at [facility] facilities. An actual copy of the Directive is not included. Date Advance Directive Provider Source 10/17/2011 ADVANCE DIRECTIVE DISCUSSION AMY VÁSQUEZ [facility] 08/11/2010 ADVANCE DIRECTIVE DISCUSSION AMY VÁSQUEZ [facility] 06/04/2009 ADVANCE DIRECTIVE DISCUSSION AMY VÁSQUEZ [facility]
--- OUTSIDE RECORDS SUMMARY | 2024-12-03 06:47 | XMS_ITS | Encounter Summary ---
Author Organization [facility] [place] [facility] [address] Care Team Providers Care Maintenance Worker Name Role Phone Markus Ramirez MD Primary Care Provider Reason for Referral * Consultation (Routine) - Authorized Specialty Diagnoses / Procedures Referred By Contac t Referred To Contact Nephrology Diagnoses Nonspecific abnormal results of kidney function study Hypercalcemia Markus Ramirez MD [address] [place] [address] Phone: tel: fax: [facility] [address] [place] [address] Phone: tel: fax: Referral ID Status Reason Start Date Expiration Date Visits Requested Visits Authorized [id number] Authorized Specialty Services Required 08/19/2024 02/18/2026 1 1 Encounter Details Date Type Department Care Team (Late st Contact Info) Description 08/19/2024 [facility] [address] [place] [address] Markus Ramirez MD [address] [place] [address] Nonspecific abnormal results of kidney function study (Primary Dx); Hypercalcemia Social History Tobacco Use Types Packs/Day Years Used Date Smoking Tobacco: Never Assessed Sex and Gender Information Value Date Recorded Sex Assigned at Not on file Legal Sex Male 6:30 PM EDT Gender Identity Not on file Sexual Orientation Not on file documented as of this encounter Plan of Treatment Scheduled Referrals Name Type Priority Associated Diagnoses Order Schedule Ambulatory referral to Nephrology Outpatient Referral Routine Nonspecific abnormal results of kidney function study Hypercalcemia Ordered: 08/19/2024 documented as of this encounter Visit Diagnoses Diagnosis Nonspecific abnormal results of kidney function study- Primary Hypercalcemia documented in this encounter Care Teams Maintenance Worker Relationship Specialty Start Date End Date Markus Ramirez MD [address] [place] [address] PCP - General Internal Medicine 08/21/24 documented as of this encounter
--- OUTSIDE RECORDS SUMMARY | 2024-12-03 06:47 | XMS_ITS | Clinical Summary ---
Author Organization [facility] Address [address] [place] [id number] Phone Care Team Providers Care Roll Grinder Operator Name Role Phone Nathan WING, [place] [phone] [ ] Conditions or Problems Problem Name Problem Code Onset Date Status Entry Date Provider Comment Standard Description Annotate Nicotine dependence, cigarettes F17.210 (ICD-10-CM ) 12/13 Active 12/13 Dina Manuel Nicotine dependence, cigarettes, uncomplicated Abscess, groin 92500650 (SNOMED CT) 12/13 Active 12/13 Dina Manuel Abscess of groin Cellulitis, groin 26645970 (SNOMED CT) 12/13 Active 12/13 Dina Manuel Cellulitis of groin Cellulitis/ab scess, scrotal 77243673 (SNOMED CT) 12/13 Active 12/13 Dina Manuel Cellulitis of scrotum Coag neg staph infection B95.7 (ICD-10-CM ) 12/13 Active 12/13 Dina Manuel Other staphylococcus as the cause of diseases classified elsewhere Enterococcus infection 004863087 (SNOMED CT) 12/13 Active 12/13 Dina Manuel Infection caused by Enterococcus E. coli infection, non-shiga toxing-produc ing B96.29 (ICD-10-CM ) 12/13 Active 12/13 Dina Manuel Other Escherichia coli [E. 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 007658907 (SNOMED CT) 12/13 Active 12/13 Dina Jackson Peripheral vascular disease DM II with diabetic PVD 887693229 (SNOMED CT) 12/13 Active 12/13 Dina Jackson Peripheral vascular disease Benign Essential Hypertension 2505822 (SNOMED CT) 12/13 Active 12/13 Dina Jackson Benign essential hypertension Medications Medication Instructions Start Date Stop Date Generic Name NDC Provider NIACIN 500 MG TABS pobid qhn 5 NIACIN 52534991289 Marta Ferris MIRALAX ORAL PACKET 1 dose popid 5 POLYETHYLENE GLYCOL 3350 02135825678 Marta JAMES NATURAL FISH OIL 1000 MG CAPS 2 capsules pobid 5 OMEGA-3 FATTY ACIDS 72295486166 Marta Ferris NITROSTAT 0.4 MG SUBL as instructed 9 NITROGLYCERIN 15595023872 Marta Ferris ZANTAC 150 MG ORAL TABLET 1 tab every morning 9 RANITIDINE HCL 03677932680 Marta Ferris CRESTOR 10 MG TABS 1 tab every night 9 ROSUVASTATIN CALCIUM 57235596649 Lizzie Velázquez ZANTAC 150 MG ORAL TABLET 1 tab every morning 9 RANITIDINE HCL 15295467960 Lizzie Velázquez EFFIENT 10 MG TABS 1 tab every morning 9 PRASUGREL HCL 93452741189 Lizzie Velázquez NITROSTAT 0.4 MG SUBL as instructed 9 NITROGLYCERIN 99404726763 Lizzie Velázquez CENTRUM SILVER TABS 1 tab daily 9 MULTIPLE VITAMINS-MINERAL S 01532398372 Lizzie Velázquez NORCO 7.5-325 MG ORAL TABLET 1 tab every 6 hours as needed for moderate pain 9 HYDROCODONE-ACET AMINOPHEN 78490811890 Lizzie Velázquez GLIPIZIDE 5 MG TABS daily 9 GLIPIZIDE 82531260051 Lizzie Velázquez COREG 12.5 MG TABS 1 tab every 12 hours 9 CARVEDILOL 09153957745 Lizzie Velázquez ADULT ASPIRIN EC LOW STRENGTH 81 MG ORAL TABLET DELAYED RELEASE 1 tab daily 9 ASPIRIN 39147817776 Lizzie Velázquez AMLODIPINE BESYLATE 10 MG TABS 1 tab daily 9 AMLODIPINE BESYLATE 41067371979 Lizzie Velázquez Medications Administered No information available. 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 PAT E-MAIL [email or web address]'s e-mail address External Other: Patient selma rivas update - EmailStatus, [facility] ... PATPORTALPIN Linked This dyllan l [...] Weight Measured 223.8 [lb_av] weight E& M Weight Measured 223.8 [lb_av] weight E& M Immunizations No information available. 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
--- OUTSIDE RECORDS SUMMARY | 2024-12-03 06:47 | XMS_ITS | Clinical Summary ---
Author Organization [facility] Address [address] [place] [address] Care Team Providers Care Endoscopy Rn Name Role Phone Markus Ramirez MD Primary Care Provider [phone] Social History Tobacco Use Types Packs/Day Years Used Date Smoking Tobacco: Never Assessed Sex and Gender Information Value Date Recorded Sex Assigned at Not on file Legal Sex Male 6:30 PM EDT Gender Identity Not on file Sexual Orientation Not on file Plan of Treatment Health Maintenance Due Date Last Done Comments [facility]-Depression Screening 1936 [facility]-Infant/Child/Adol SDOH Screenings 1936 [facility]- SDOH Screenings 1954 [facility]-Adult SDOH Screenings 1954 [facility]-Pneumococcal Vaccine: 50+ Years (1 of 1 - PCV) 1986 [facility]-Zoster Vaccines (1 of 2) 1986 [facility]-RSV Vaccine: 60+ Years or (1 - 1-dose 75+ series) 12/02/2011 [id number]-20 Vaccine (3 - season) 2024 06/29/2022, 03/10/2021 [facility]-DTaP,Tdap,and Td Vaccines (2 - Td or Tdap) 09/09/2030 09/09/2020 [facility]-Influenza Vaccine Completed 05/04/2024 , 03/19/2021 HPV Vaccines Aged Out No longer eligi ble based on patient's age to complete this topic [facility]-HIB Vaccines Aged Out No longer e ligible based on patient's age to complete this topic [facility]-Hepatitis A Vaccines Aged Out No longer eligible based on patient's age to complete this topic [facility]-IPV Vaccines Aged Out No longer e ligible based on patient's age to complete this topic [facility]-Rotavirus Vaccines Aged Out No lo nger eligible based on patient's age to complete this topic Insurance MEDICARE Care Teams Endoscopy Rn Relationship Specialty Start Date End Date Markus Ramirez MD [address] [place] [address] PCP - General Internal Medicine 08/21/24
--- OUTSIDE RECORDS SUMMARY | 2024-12-03 06:47 | XMS_ITS | Data Portability ---
Author Organization [facility] Address [address] [place] [phone] Assessment No assessment recorded. Plan of Treatment Reminders Order Date Submit Date Provider Last Modified By Organization Details Last Modified Time Details Appointments None recorded. Lab None recorded. Referral None recorded. Procedures None recorded. Surgeries None recorded. Imaging None recorded. Medication Orders cephalexin 500 mg capsule 2021 022 [facility], [address] [place] [address]-, [place], [phone], 17:21:18 Patient TargetsNo targets recorded. Patient Instructions Encounter Date Encounter Id Patient Instructions Last Modified By Organization Details Last Modified Time 03/30/2022 [id number] Path pending at time of suture removal. Will call with those results and follow up. [place] Not available 04/05/2022 12:13:39 Reason for Referral None Reported. Results Created Date Observation Date Name Description Value Unit Range Abnormal Flag Note LastModifiedBy Organization Detail LastModifiedTime Result Notes None recorded. Problems Name Problem SNOMED Code Status Onset Date Resolution Date Notes Provider Name and Address Organization Details Recorded Time Lesion of skin of left ear 34135359994013441 Active Nereida Garcia priya, [facility] [place] 16:17:53 Problem Notes None recorded. Procedures Surgical History Date Name Laterality Status Provider Name and Address Organization Details Recorded Time 03/22/20 22 Excision of lesion with (simple, intermediate layered, complex layered) closure completed Svetlana Hinojosa MD [address], [place], [address], [facility] [place] 03/25/2022 10:17:01 Imaging Results None recorded. Procedure Notes None recorded. Medical Equipment None Reported. Allergies Allergen ID Allergen Name Allergen Category Reaction Reaction Severity Criticality Documentation Date Start Date Code Code System Note Provider Name and Address Organization Details Recorded Time 6973 lisinopri l medicatio n Not available Not available Not available 03/04/2022 94810 RxNorm DEMETRIO Smith [facility] [place] 16:17:52 6974 atorvasta tin medicatio n Not available Not available Not available 03/04/2022 02980 RxNorm DEMET[place]O Smith [facility] [place] 16:17:52 Medications Name Sig Start Date Stop Date Status Note LastModified by Organization Details LastModified Time carvedilol 12.5 mg tablet 1 {tablet_w ith_food} twice a day by oral route. 2021 active Not Available Not Available Not Avai lable prednisone 20 mg tablet TAKE ONE TABLET BY MOUTH TWICE DAILY FOR 4 DAYS --TAKE WITH FOOD-- active Not Available Not Available No t Available isosorbide mononitrate ER 30 mg tablet,extende d release 24 hr TAKE ONE TABLET BY MOUTH EVERY DAY active Not Available Not Available No t Available amlodipine 10 mg tablet 1 {tablet} by oral route. 2021 active Not Available Not Available Not Avai lable hydrocodone 7.5 mg-acetaminoph en 325 mg tablet 1 {tablet_a s_needed} 4 times a day by oral route. active Not Available Not Available No t Available cephalexin 500 mg capsule TAKE ONE CAPSULE BY MOUTH EVERY 8 HOURS FOR 5 DAYS -- FINISH ALL MEDICINE -- active Not Available Not Available No t Available pantoprazole 40 mg tablet,delayed release 1 {tablet} by oral route. 2021 active Not Available Not Available Not Avai lable nitroglycerin 0.4 mg sublingual tablet DISSOLVE 1 TABLET UNDER THE TONGUE EVERY 5 MINUTES NEEDED FOR CHEST PAIN. DO NOT EXCEED A TOTAL OF 3 DOSES IN 15 MINUTES. IF NO RELIEF AFTER 3 DOSES CALL 911/GO TO ER active Not Available Not Available No t Available furosemide 20 mg tablet TAKE 1/2 TABLET BY MOUTH EVERY DAY IN THE MORNING active Not Available Not Available No t Available glipizide 5 mg tablet 2021 active Not Available Not Available Not Avai lable rosuvastatin 20 mg tablet 1 {tablet} by oral route. 2021 active Not Available Not Available Not Avai lable Vitals None Recorded Social History None recorded. Functional Status None recorded. Mental Status None recorded. Family History Nothing Reported. Medical History No medical history recorded. Past Encounters Encounter ID Performer Location Encounter Start Date Encounter Closed Date Diagnosis/Indication Diagnosis SNOMED-CT Code Diagnosis ICD10 Code Diagnosis Note [id number] Svetlana Hinojosa MD [facility] [place] [id number] 03/22/2022 15:44:22 03/22/2022 17:08:02 Open wound of external ear 537637623 S01.302A Basal cell carcinoma of ear 817342421 C44.219 [id number] Svetlana Hinojosa MD [facility] [place] [id number] 03/30/2022 08:25:37 03/30/2022 09:13:30 Lesion of skin of left ear 3995902941 7726152 H93.8X2 [id number] Svetlana Hinojosa MD [facility] [place] [id number] 04/05/2022 12:47:05 04/05/2022 12:58:57 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 This also was a morpheafor m subset of BCCa which can be more agressive. Advised that I feel he will need a MOHS resection with reconstruc tion. He is agreeable to this and will get set up as soon as possible. To continue damp to dry dressing changes. Health Concerns Section Related Observation LastModified by Organization Detai ls LastModified Time None Recorded Concern Status LastModified by Organization Details LastModified Time None Recorded Advance Directives Directive None Recorded Payers Insurance Date Sequence Insurance Name Policy Number Policy Berg Covered Member ID Berg Member ID Guarantor Name 03/04/2022 2 [place] [id number] Kory Ny [id number] [place]ory [place] 04/23/2022 2 [place] [id number] Kory Ny [id number] Kory Ny 03/04/2022 1 [place] Kory Ny [id number] Kory Ny 03/29/2022 1 [place] Kory [place] [id number] Kory Ny Notes Date Note Type Note Provider Name and Address Organization Details Recorded Time 03/30/2022 text/html Patient returns to the office today for suture removal. Svetlana Hinojosa MD [address], [place], [address], [facility] 04/05/2022 12:13:52 04/05/2022 text/html Patient returns to the office today for suture removal.04/05/22- Patient returns to the office today to follow up on his wet to dry dressings of his surgical wound. He had a post-auricular excision with sutures removed 7 days later. Then 2 days last he had dehiscnece of his wound and has been doing damp to dry dressings. Svetlana Hinojosa MD [address], [place], [address], [facility] 04/06/2022 10:58:32
--- OUTSIDE RECORDS SUMMARY | 2024-12-03 06:47 | XMS_ITS | Data Portability ---
Author Organization DEMETRIO JOANN Hunter [place] [facility] Address [address] [place] [address] Assessment Encounter Date Assessment Date Assessment LastModified by Organization Details LastModified Time 01/28/2019 01/28/2019 PREOPERATIVE DIAGNOSIS: Left renal calculus. POSTOPERATIVE DIAGNOSIS: Large left proximal ureteral stone, likely uric acid. PROCEDURE: Cystoscopy, left ureteroscopy, laser of left proximal ureteral stone, flexible left ureteroscopy with fluoroscopy. Left ureteral stent placement, string attached. ANESTHESIA: General. SURGEON: Jaquan Johnson MD DRAINS: A 4.8 x 28 left ureteral stent, string attached. SPECIMENS: None. INDICATIONS: The patient is an 83-year-old gentleman who presented with left-sided flank pain for several months. He was found to have a 9 mm stone, proximal left renal pelvis. He also has chronic renal disease and we decided to address this ureteroscopically versus shockwave lithotripsy. Risks were discussed including retained stone fragments requiring other intervention. He understands and wished to proceed. OPERATIVE NOTE: After satisfactory general anesthesia, he was carefully placed in the lithotomy position. Genitalia was prepped and draped in normal fashion. Sequential compression garments were placed at the time of induction. A 22-Ghanaian cystoscopy sheath was introduced under direct vision with a 30 degree lens. The urethra appeared normal. His prostate was nonobstructing. Upon entering the bladder, there were several, very small yellow stones, smooth in appearance. All of these were probably 3 mm or less. First, left retrograde pyelogram was performed. He had a filling defect in the proximal left ureter. He mentioned that he had had significant recent pain. He had a filling defect consistent with the size of the stone. This was about the L3 transverse process. I was able to pass a 0.035 sensor wire up the left ureter and beyond the stone. His left ureteral orifice looked accommodating to primary ureteroscopy and therefore, the cystoscope was withdrawn and a semirigid ureteroscope introduced. The scope was introduced in the ureteral office easily, up out of the pelvis and did require a second wire, a 0.035 Sensor wire in order to negotiate and straighten the ureter, but then atraumatically, the stone was advanced up to the level of the stone. A 200 micro fiber was used very carefully to fragment this down to very small pieces. There was a fragment about 4 mm which unfortunately was engaged in the basket, but was unable to be primary extracted. We could never fragment it adequately further. It unfortunately irrigated back into the renal pelvis. Despite several attempts at advancing a flexible scope into the renal pelvis, I was never successful and the visualization became somewhat obscured due to mild bleeding and I elected to discontinue further intervention. Several maneuver were performed to trying to access this, but ultimately this was aborted. I then passed a 4.8 x 28 double pigtail stent. There was a good coil in the kidney and coil in the bladder. The string was left attached, exiting the urethra. Cystoscopy was performed and the bladder irrigated. The cystoscope was withdrawn. String was secured to the penis with Tegaderm. The patient tolerated the procedure well. He was converted back to supine position and transferred postop in stable condition. We will anticipate leaving his stent for 72 hours. He will follow with me in [place] in three weeks. He was placed on Bactrim Double Strength b.i.d. for one week. [email or web address] Not available 01/30/2019 15:13:00 Plan of Treatment Reminders Order Date Submit Date Provider Last Modified By Organization Details Last Modified Time Details Appointments None recorded. Lab urinalysis, dipstick, auto 2018 019 [email or web address] [facility], [address], [facility] [address], [place], [address], 9 08:15:07 Referral None recorded. Procedures None recorded. Surgeries cystoscopy, with ureteroscop y, with lithotripsy (SURG) 2018 [email or web address] [facility], [address] [facility] [address] [address], [place], [address], 9 17:43:29 Imaging None recorded. Medication Orders None recorded. Patient TargetsNo targets recorded. Patient Instructions Encounter Date Encounter Id Patient Instructions Last Modified By Organization Details Last Modified Time 01/23/2019 [id number] kidney stone: care instructions [email or web address] Not available 01/25/2019 08:15:07 learning about diet for kidney stone prevention [email or web address] Not available 01/25/2019 08:15:07 healthy together [email or web address] Not available 01/25/2019 08:15:07 Reason for Referral None Reported. Results Created Date Observation Date Name Description Value Unit Range Abnormal Flag Note LastModifiedBy Organization Detail LastModifiedTime 01/24/20 19 01/23/2019 urina lysis , dipst ick, auto Unknown Analyte Yellow Not Available [facility] [address], [place], [address], 01/23/2019 16:34:35 01/24/20 19 01/23/2019 urina lysis , dipst ick, auto Unknown Analyte Clear Not Available [facility] [address] [place] [address] [address], [place], [address], 01/23/2019 16:34:35 01/24/20 19 01/23/2019 urina lysis , dipst ick, auto Unknown Analyte 1.020 Not Available [facility] [address] [place] [address] [address], [place], [address], 01/23/2019 16:34:35 01/24/20 19 01/23/2019 urina lysis , dipst ick, auto Unknown Analyte 1.003 - 1.035 Not Available [facility] [address] [place] [address] [address], [place], [address], 01/23/2019 16:34:35 01/24/20 19 01/23/2019 urina lysis , dipst ick, auto Unknown Analyte 5.0 Not Available [facility] [address], [place], [address], 01/23/2019 16:34:35 01/24/20 19 01/23/2019 urina lysis , dipst ick, auto Unknown Analyte 5.0 - 8.0 Not Available [facility] [address] [facility] [address], [place], [address], 01/23/2019 16:34:35 01/24/20 19 01/23/2019 urina lysis , dipst ick, auto Unknown Analyte Negati ve Not Available [facility] [address] [facility] [address], [place], [address], 01/23/2019 16:34:35 01/24/20 19 01/23/2019 urina lysis , dipst ick, auto Unknown Analyte Negati ve Not Available [facility] [address], [place], [address], 01/23/2019 16:34:35 01/24/20 19 01/23/2019 urina lysis , dipst ick, auto Unknown Analyte Negati ve Not Available [facility] [address], [place], [address], 01/23/2019 16:34:35 01/24/20 19 01/23/2019 urina lysis , dipst ick, auto Unknown Analyte Negati ve Not Available [facility] [address], [place], [address], 01/23/2019 16:34:35 01/24/20 19 01/23/2019 urina lysis , dipst ick, auto Unknown Analyte Trace Not Available [facility] [address], [place], [address], 01/23/2019 16:34:35 01/24/20 19 01/23/2019 urina lysis , dipst ick, auto Unknown Analyte Negati ve - Trace Not Available [facility] [address], [place], [address], 01/23/2019 16:34:35 01/24/20 19 01/23/2019 urina lysis , dipst ick, auto Unknown Analyte 100 mg/dl Not Available [facility] [address], [place], [address], 01/23/2019 16:34:35 01/24/20 19 01/23/2019 urina lysis , dipst ick, auto Unknown Analyte Normal Not Available [facility] [address], [place], [address], 01/23/2019 16:34:35 01/24/20 19 01/23/2019 urina lysis , dipst ick, auto Unknown Analyte Negati ve Not Available [facility] [address], [place], [address], 01/23/2019 16:34:35 01/24/20 19 01/23/2019 urina lysis , dipst ick, auto Unknown Analyte Negati ve Not Available [facility] [address], [place], [address], 01/23/2019 16:34:35 01/24/20 19 01/23/2019 urina lysis , dipst ick, auto Unknown Analyte Normal Not Available [facility] [address], [place], [address], 01/23/2019 16:34:35 01/24/20 19 01/23/2019 urina lysis , dipst ick, auto Unknown Analyte Normal - 1mg/dl Not Available [facility] [address], [place], [address], 01/23/2019 16:34:35 01/24/20 19 01/23/2019 urina lysis , dipst ick, auto Unknown Analyte Negati ve Not Available [facility] [address], [place], [address], 01/23/2019 16:34:35 01/24/20 19 01/23/2019 urina lysis , dipst ick, auto Unknown Analyte Negati ve Not Available [facility] [address], [place], [address], 01/23/2019 16:34:35 01/24/20 19 01/23/2019 urina lysis , dipst ick, auto Unknown Analyte 250 Alex/ul Not Available [facility] [address] [place] [address] [address], [place], [address], 01/23/2019 16:34:35 01/24/20 19 01/23/2019 urina lysis , dipst ick, auto Unknown Analyte Negati ve Not Available [facility] [address] [facility] [address], [place], [address], 01/23/2019 16:34:35 01/24/20 19 01/23/2019 urina lysis , dipst ick, auto Unknown Analyte Clean Catch Not Available [facility] [address] [facility] [address], [place], [address], 01/23/2019 16:34:35 01/24/20 19 01/23/2019 urina lysis , dipst ick, auto Unknown Analyte Visual Not Available [facility] [address] [facility] [address], [place], [address], 01/23/2019 16:34:35 01/29/20 19 01/28/2019 urina lysis , dipst ick, auto Unknown Analyte Yellow Not Available [facility] [address] [place], [address], 01/28/2019 13:48:24 01/29/20 19 01/28/2019 urina lysis , dipst ick, auto Unknown Analyte Clear Not Available [facility] [address] [place], [address], 01/28/2019 13:48:24 01/29/20 19 01/28/2019 urina lysis , dipst ick, auto Unknown Analyte 1.010 Not Available [facility] [address] [place], [address], 01/28/2019 13:48:24 01/29/20 19 01/28/2019 urina lysis , dipst ick, auto Unknown Analyte 5.0 Not Available [facility] [address] [place], [address], 01/28/2019 13:48:24 01/29/20 19 01/28/2019 urina lysis , dipst ick, auto Unknown Analyte Negati ve Not Available [facility] Schedule [address] [place], [address], 01/28/2019 13:48:24 01/29/20 19 01/28/2019 urina lysis , dipst ick, auto Unknown Analyte Negati ve Not Available [facility] Schedule [address] [place], [address], 01/28/2019 13:48:24 01/29/2001/28/2019 urina lysis , dipst ick, auto Unknown Analyte Trace Not Available [facility] Surgery Schedule [address] [place], [address], 01/28/2019 13:48:24 01/29/2001/28/2019 urina lysis , dipst ick, auto Unknown Analyte Normal Not Available [facility] Surgery Schedule [address] [place], [address], 01/28/2019 13:48:24 01/29/2001/28/2019 urina lysis , dipst ick, auto Unknown Analyte Negati ve Not Available [facility] Schedule [address] [place], [address], 01/28/2019 13:48:24 01/29/2001/28/2019 urina lysis , dipst ick, auto Unknown Analyte Normal Not Available [facility] Surgery Schedule [address] [place], [address], 01/28/2019 13:48:24 01/29/2001/28/2019 urina lysis , dipst ick, auto Unknown Analyte Negati ve Not Available [facility] Schedule [address] [place], [address], 01/28/2019 13:48:24 01/29/2001/28/2019 urina lysis , dipst ick, auto Unknown Analyte 50 Alex/ul Not Available [facility] Schedule [address] [place], [address], 01/28/2019 13:48:24 01/29/20 19 01/28/2019 urina lysis , dipst ick, auto Unknown Analyte Clean Catch Not Available [facility] Schedule [address] [place], [address], 01/28/2019 13:48:24 01/29/20 19 01/28/2019 urina lysis , dipst ick, auto Unknown Analyte Automa temi Not Available [facility] Schedule [address] [place], [address], 01/28/2019 13:48:24 Result Notes None recorded. Procedures Surgical History Date Name Laterality Status Provider Name and Address Organization Details Recorded Time [facility] 01/23/2019 16:31:30 AAA Repair completed [facility] 01/23/2019 16:32:08 Imaging Results None recorded. Procedure Notes None recorded. Medical Equipment None Reported. Allergies Allergen ID Allergen Name Allergen Category Reaction Reaction Severity Criticality Documentation Date Start Date Code Code System Note Provider Name and Address Organization Details Recorded Time 321408 Product containin g penicilli n (product) medicatio n Not available Not available Not available 01/23/2019 39260 8001 SNOMED Ruthy resendiz [facility] 9 16:27:14 152694 Plavix medicatio n Not available Not available Not available 01/23/2019 94020 2 RxNorm Ruthy Maria Teresahumberto d [facility] 9 16:27:21 198348 Lipitor medicatio n Not available Not available Not available 01/23/2019 78186 5 RxNorm Ruthy Lindsayfor d [facility] 9 16:27:27 Medications Name Sig Start Date Stop Date Status Note LastModified by Organization Details LastModified Time carvedilol 12.5 mg tablet Take 1 tablet twice a day by oral route. active Not Available Not Available No t Available metoprolol tartrate 100 mg tablet Daily active Frequency : daily;Med ication Descripti on: metoprolo l tartrate; Dosage:1; Route:ora l; refills:0 Not Available Not Available Not Available Zantac 300 mg tablet Daily active Frequency : daily;Med ication Descripti on: ranitidin e; Dosage:1; Route:ora l; refills:0 ; Quantity: 60 tablet Not Available Not Available Not Available glipizide ER 5 mg tablet, extended release 24 hr Daily active Duration: 10 days;Freq uency: daily;Med ication Descripti on: glipizide ; Dosage:1; Route:ora l; refills:0 ; Quantity: 30 tablet, extended release Not Available Not Available Not Available pantoprazo le 40 mg intravenou s solution Inject by intraveno us route. active Not Available Not Available No t Available simvastati n 80 mg tablet active Medicatio n Descripti on: simvastat in; Route:ora l; refills:0 Not Available Not Available Not Available allopurino l 100 mg tablet Take 1 tablet every day by oral route for 90 days. 2018 active Not Available Not Available Not Avai lable niacin 500 mg tablet Two times a day active Duration: 10 days;Freq uency: bid;Medic ation Descripti on: niacin; Dosage:1; Route:ora l; refills:0 ; Quantity: 120 tablet Not Available Not Available Not Available aspirin 81 mg tablet Daily active Duration: 30 days;Freq uency: daily;Med ication Descripti on: aspirin; Dosage:1; refills:0 ; Quantity: 30 Not Available Not Available Not Available [place] 7.5 mg-325 mg tablet Take 1 tablet every 6 hours by oral route. active Not Available Not Available No t Available lisinopril 40 mg tablet Bedtime active Duration: 30 days;Freq uency: hs;Medica tion Descripti on: lisinopri l; Dosage:1; Route:ora l; refills:5 ; Quantity: 30 tablet Not Available Not Available Not Available rosuvastat in 20 mg tablet Take 1 tablet every day by oral route. active Not Available Not Available No t Available Fish Oil active Instructi ons: 850MG;Med ication Descripti on: omega-3 polyunsat urated fatty acids; Route:ora l; refills:0 Not Available Not Available Not Available amlodipine active Not Available Not Av ailable Not Available Centrum Silver active Not Available Not Available Not Available Miralax active Not Available Not Avail able Not Available niacin (inositol niacinate) 500 mg capsule Take by oral route. active Not Available Not Available No t Available Vitals Date Recorded Body height Body mass index (BMI) Body weight Heart rate Systolic blood pressure Diastolic blood pressure Provider Name and Address Organization Details Last Updated DateTime 9 180.34 cm 30 kg/m2 12150.3 6 g 67 /min 136 mm[Hg] 79 mm[Hg] Ruthy resendiz [facility] 9 16:27:00 Social History Question Answer Notes LastModified by Organizat ion Details LastModified Time Tobacco Smoking Status Former Smoker Ruthy powers, [facility] 01/23/2019 16:31:08 How Much Tobacco Do You Chew? None Information not available 01/23/2019 Marital Status Informat ion not available 01/23/2019 Sex: Unknown Functional Status Question Answer Note LastModified by Organization D etails LastModified Time What is your level of alcohol consumption? None Information not available 01/23/2019 Mental Status None recorded. Family History Relationship Description Onset Age of this Age Resolved Age Notes LastModified by Organization Details LastModified Time Father Family history of malignant neoplasm richie Not available 16:30:58 Medical History Condition Response Kidney Stones Y Heart Arrhythmia Y Kidney Disease Y Chronic Obstructive Pulmonary Disease Y Heart Attack ([place]) Y Diabetes Y Heart Disease Y Hypertension Y Past Encounters Encounter ID Performer Location Encounter Start Date Encounter Closed Date Diagnosis/Indication Diagnosis SNOMED-CT Code Diagnosis ICD10 Code Diagnosis Note [id number] JAQUAN JOHNSON MD [facility] [address] [place] [address] 01/23/2019 14:50:14 01/25/2019 10:49:09 Kidney stone 92048964 N20.0 plan as above [id number] JAQUAN JOHNSON MD SURGERY SCHEDULE [address] [place] [address] 01/28/2019 06:25:22 01/28/2019 06:25:40 Health Concerns Section Related Observation LastModified by Organization Detai ls LastModified Time None Recorded Concern Status LastModified by Organization Details LastModified Time None Recorded Advance Directives Directive None Recorded Payers Insurance Date Sequence Insurance Name Policy Number Policy Berg Covered Member ID Berg Member ID Guarantor Name 05/20/2020 1 [place] Kory Ny [id number] Kory Ny 05/20/2020 2 [place] [id number] Kory Ny [id number] Kory Ny Notes Date Note Type Note Provider Name and Address Organization Details Recorded Time 01/23/2019 text/html patient was refe rred for hematuria and left-sided renal calculus. He has had some intermittent left-sided flank discomfort for 6 months. He is recently had some hematuria. He had a CT scan which demonstrates a 9 mm stone mid pole calyx. We discussed that this may or may not be the source of his pain but due to its size should be treated. It is very likely the cause of his hematuria. I typically have seen him in [place]. It is been several years since his last visit. 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 I suggest we addressed this ureteroscopically using the laser in hopes to minimize parenchymal trauma. We discussed the procedure in detail including risk of retained stone fragments requiring other intervention. He understands and wishes to proceed. JAQUAN JOHNSON MD [facility], [place], [address], [facility] 01/25/2019 08:15:34
--- NOTE | 2024-12-03 07:00 | CT_ITS ---
FINAL REPORT TECHNIQUE: Axial imaging of the chest was obtained without contrast. Reformatted images were also obtained and reviewed.This study was performed with techniques to keep radiation doses as low as reasonably achievable, (ALARA). Individualized dose reduction technique using automated exposure control or adjustment of mA and/or kV according to the patient's size were employed. 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 Dense coronary artery calcifications are noted. There is no axillary adenopathy. There is no hilar or mediastinal mass or adenopathy. Heart size is normal. There is no pericardial or pleural effusion. Limited images of the upper abdomen are unremarkable. There is a well-circumscribed, noncalcified nodule again seen in the medial right lower lobe on image 34 series 2 which is unchanged from prior exam. No new mass or nodule is identified. IMPRESSION: Stable, 7 mm nodule in the right lower lobe. Recommend 1 year follow-up. Reviewed, Interpreted and Dictated by Derrick Evans MD Transcribed by Sveta Betancourt Authenticated and [facility]
== END 2024-12-03 23:59 | disposition home or self-care (01) ==
LOC: RAD 06:45
PROVIDERS: PCP Internal Medicine Adolescent Medicine; Visit Provider Internal Medicine Adolescent Medicine
DX: R91.1 Solitary pulmonary nodule (principal); Z95.0 Presence of cardiac pacemaker
CPT/HCPCS: 71250

== ENCOUNTER 2025-01-06 10:13 | Outpatient (CLI) | payer MEDICARE, BC, SELFPAY ==
--- OUTSIDE RECORDS SUMMARY | 2024-12-04 07:49 | XMS_ITS | Encounter Summary ---
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 Name Role Phone FAHAD BLOCK Primary Care [...] Name Patient's Relationship to Policy [place] [employer] [employer] PLAN C [place] MED-[place] UPP PLAN C May 26, 2016 [id number] Samara RAMIREZ OBBY PATIENT [facility] BLUECARD MEDICARE SUPPLEMEN SELVIN [place] CKY INDIV IDUAL Jun 26, 2008 [id number] [phone] Samara RAMIREZ OBBY PATIENT MEDICARE (WNR) MEDICARE (M) PART A Nov 24, 2001 PART A [id number] [facility] [phone] [id number] Samara RAMIREZ OBBY PATIENT MEDICARE (WNR) MEDICARE (M) PART B Nov 24, 2001 PART B [id number] [phone] Samara RAMIREZ OBBY PATIENT MEDICARE (WNR) MEDICARE (M) PART B Nov 24, 2001 PART B [id number] [facility] RAMIREZ,B OBBY PATIENT MEDICARE (WNR) MEDICARE (M) PART A Nov 24, 2001 PART A [id number] [facility] [phone] RAMIREZ,B OBBY PATIENT MEDICARE (WNR) MEDICARE (M) PART A Nov 24, 2001 PART A [id number] [phone] [id number] RAMIREZ,B OBBY PATIENT MEDICARE (WNR) MEDICARE (M) PART B Nov 24, 2001 PART B [id number] RAMIREZ,B OBBY PATIENT MEDICARE (WNR) MEDICARE (M) PART A Nov 24, 2001 PART A [id number] RAMIREZ,B OBBY PATIENT MEDICARE (WNR) MEDICARE (M) PART B Nov 24, 2001 PART B [id number] RAMIREZ,B OBBY PATIENT Selected Encounter This section includes the information on record at [place] for the Encounter. Date/Time Encounter Type Encounter Description Reason Pro vider Source Dec 04, 2024 11:49 AM Outpatient Encounter ADMIN PAT ACTIVTIES (MASNONCT) IHE Encounter Template Text not used by [place] Plan of Treatment: Future Appointments (+ 6 months) and Future Tests (+/- 45 days) The Plan of Treatment section includes future care activities for the patient from all [place] treatmentfacilities. This section includes future appointments and future orders which are active, pending or scheduled. Future Appointments This section includes appointments that were scheduled to occur 6 months from the date of the Encounter, up to a maximum of 20 appointments. The data comes from all [place] treatment facilities. Appointment Date/Time Appointment Type Appointme nt Facility Name Dec 10, 2024 07:20 AM AMBULATORY - MEDICINE [facility] Active, Pending, and Scheduled Orders This section includes a listing of several types of active, pending, and scheduled orders, including clinic medications orders, diagnostic test orders, procedure orders and consult orders; where the start date of the order is 45 days before the date of the Encounter or 45 days after the date of theEncounter. The data comes from all [place] treatment facilities. Test Date/Time Test Type Test Details Facility Name Oct 21, 2024 12:00 AM Laboratory - Chemi stry Order PANEL 4 [id number] SP ONCE [facility] Oct 21, 2024 12:00 AM Laboratory - Chemi stry Order 25-OH VITAMIN D [id number] SP ONCE [facility] Oct 21, 2024 12:00 AM Laboratory - Chemi stry Order PTH INTACT ([place]) [id number] SP ONCE [facility] Social History: Smoking Status (Most current) and Tobacco Use (All prior to encounter date) This section includes the most current, and the historical, smoking and tobacco- related health factors from the [place] facility where the Encounter took place. Current Smoking Status This section includes the most current smoking, or tobacco-related health factor, from the [place] facility where the Encounter took place. Date/Time Current Smoking Status Comment Facil ity May 10, 2024 08:00 AM VA-TOBACCO USER EVERY DAY [facility] Tobacco Use History This section includes a history of the smoking, or tobacco-related health factors, that were collected on or before the date of the Encounter. The data comes from the [place] facility where the Encounter took place. Date/Time Smoking Status/Tobacco Use Comment F acility May 10, 2024 08:00 AM VA-TOBACCO USE ADVICE [facility] May 10, 2024 08:00 AM VA-TOBACCO USE TUTORING CLINICIAN NO [facility] May 10, 2024 08:00 AM VA-TOBACCO USE MED NO [facility] May 10, 2024 08:00 AM VA-TOBACCO USE WI 30 MIN OF WAKEUP [facility] May 10, 2024 08:00 AM VA-TOBACCO USER EVERY DAY [facility] Jun 02, 2023 08:00 AM VA-TOBACCO USE 30 YEARS OR MORE [facility] Jun 02, 2023 08:00 AM VA-TOBACCO USE ADVICE [facility] Jun 02, 2023 08:00 AM VA-TOBACCO USE TUTORING CLINICIAN NO [facility] Jun 02, 2023 08:00 AM VA-TOBACCO USE MED NO [facility] Jun 02, 2023 08:00 AM VA-TOBACCO USE WI 30 MIN OF WAKEUP [facility] Jun 02, 2023 08:00 AM VA-TOBACCO USER EVERY DAY [facility] Jun 29, 2022 08:00 AM VA-TOBACCO USE 30 YEARS OR MORE [facility] Jun 29, 2022 08:00 AM VA-TOBACCO USE ADVICE [facility] Jun 29, 2022 08:00 AM VA-TOBACCO USE TUTORING CLINICIAN NO [facility] Jun 29, 2022 08:00 AM VA-TOBACCO USE MED NO [facility] Jun 29, 2022 08:00 AM VA-TOBACCO USE WI 30 MIN OF WAKEUP [facility] Jun 29, 2022 08:00 AM VA-TOBACCO USER EVERY DAY [facility] Jul 13, 2021 01:30 PM VA-TOBACCO USE 30 YEARS OR MORE [facility] Jul 13, 2021 01:30 PM VA-TOBACCO USE ADVICE [facility] Jul 13, 2021 01:30 PM VA-TOBACCO USE TUTORING CLINICIAN NO [facility] Jul 13, 2021 01:30 PM VA-TOBACCO USE MED NO [facility] Jul 13, 2021 01:30 PM VA-TOBACCO USE WI 30 MIN OF WAKEUP [facility] Jul 13, 2021 01:30 PM VA-TOBACCO USER EVERY DAY [facility] Dec 31, 2018 08:30 AM VA-TOBACCO USE 30 YEARS OR MORE [facility] Dec 31, 2018 08:30 AM VA-TOBACCO USE ADVICE [facility] Dec 31, 2018 08:30 AM VA-TOBACCO USE TUTORING CLINICIAN NO [facility] Dec 31, 2018 08:30 AM VA-TOBACCO USE MED NO [facility] Dec 31, 2018 08:30 AM VA-TOBACCO USE WI 30 MIN OF WAKEUP [facility] Dec 31, 2018 08:30 AM VA-TOBACCO USER EVERY DAY [facility] Jan 08, 2018 09:44 AM V9 CURRENT TOBACCO USER [facility] Jan 08, 2018 09:44 AM V9 TOBACCO OFFERED [facility] Jan 08, 2018 09:44 AM V9 TOBACCO USE-DECLINED MEDS [facility] Dec 15, 2016 09:06 AM V9 LIFETIME NON-USER OF TOBACCO [facility] Nov 27, 2014 08:59 AM V9 CURRENT TOBACCO USER [facility] Nov 27, 2014 08:59 AM V9 TOBACCO OFFERED [facility] Nov 27, 2014 08:59 AM V9 TOBACCO USE-DECLINED MEDS [facility] Oct 16, 2013 08:04 AM TOBACCO OFFERRED P T MEDS (PROVIDER) [facility] Oct 16, 2013 08:04 AM V9 CURRENT TOBACCO USER [facility] Oct 16, 2013 08:04 AM V9 TOBACCO OFFERED [facility] Jun 13, 2012 08:13 AM TOBACCO OFFERRED P T MEDS (PROVIDER) [facility] Jun 13, 2012 08:13 AM V9 CURRENT TOBACCO USER [facility] Jun 13, 2012 08:13 AM V9 TOBACCO OFFERED [facility] Apr 06, 2011 07:00 AM TOBACCO OFFERRED P T MEDS (PROVIDER) [facility] Apr 06, 2011 07:00 AM V9 CURRENT TOBACCO USER [facility] Apr 06, 2011 07:00 AM V9 TOBACCO OFFERED [facility] Jan 06, 2010 06:58 PM TOBACCO OFFERRED P T MEDS (PROVIDER) [facility] Jan 06, 2010 06:58 PM V9 CURRENT TOBACCO USER [facility] Jan 06, 2010 06:58 PM V9 TOBACCO OFFERED [facility] Advance Directives: All historical and current Section Date Range: From patient's date of to the date document was created. This section includes ALL of a patient's completed or amended [place] Advance and Rescinded Directives. The entries below indicate that a directive exists for the patient, but an actual copy is not included with this document. The data comes from all [place] facilities. Date Advance Directives Provider Source Oct 17, 2011 ADVANCE DIRECTIVE DISCUSSION AMY VÁSQUEZ [facility] Aug 11, 2010 ADVANCE DIRECTIVE DISCUSSION AMY VÁSQUEZ [facility] Jun 04, 2009 ADVANCE DIRECTIVE DISCUSSION AMY VÁSQUEZ [facility] Encounter Notes: All associated encounter notes This section contains the clinical notes associated to the Encounter. Date/Time Encounter Note(s) Provider Source Dec 04, 2024 11:49 AM PHARMACY MEDICATIO N MGT NOTE: LOCAL TITLE: CONTROLLED SUBSTANCE RENEWAL REQUEST STANDARD TITLE: PHARMACY MEDICATION MGT NOTE DATE OF NOTE: DEC 04, 2024@11:49 ENTRY DATE: DEC 04, 2024@11:49:36 AUTHOR: GLENROY ARVIZU EXP COSIGNER: URGENCY: STATUS: COMPLETED Rx requested - HYDROCODONE 7.5/ACETAMINOPHEN 325MG TAB Last fill date - 08/06/24 (Mail) Progress Note Date Title Author (and Author's Title) MAY 10, 2024@08:02 PC PROGRESS NOTE FAHAD BLOCK (PRIMARY CARE PHYSI YOUNG/PDMP No Data Found for the Selected Note Titles No data available for: NALOXONE NALOXONE AUTOINJECTOR IM RESCUE NALOXONE NASAL RESCUE 4MG NALOXONE NASAL RESCUE 8MG NALOXONE NASAL RESCUE Mail ID signer [facility] alert sent to FAHAD BLOCK, Primary Care Provider Comments: DRUG SCREEN: ONLY Drug Screens within the prior 12 months will be listed Drug Screen: Collection DT Specimen Test Name Result Units Ref Range 07/08/2024 09:05 URINE !! THC SCR NEG Ref: Cutoff < 50 07/08/2024 09:05 URINE !! AMPHETAMINE SCR NEG Ref: Cutoff < 1000 07/08/2024 09:05 URINE !! BARBITURATES SCR NEG Ref: Cutoff < 200 07/08/2024 09:05 URINE !! BENZODIAZEPINES S NEG Ref: Cutoff < 200 07/08/2024 09:05 URINE !! COCAINu NEG Ref: Cutoff < 300 07/08/2024 09:05 URINE !! OPIATES SCR POS Ref: Cutoff < 300 07/08/2024 09:05 URINE !! METHADONE SCR NEG Ref: Cutoff < 300 07/08/2024 09:05 URINE !! OXYCODONE SCR NEG Ref: Cutoff < 200 !! Indicates COMMENTS AVAILABLE...Refer to Interim Lab Report. /echo/ GLENROY ARVIZU ENGINE DESIGNER Signed: 12/04/2024 11:50 Receipt Acknowledged By: 12/05/2024 08:43 /echo/ FAHAD ARVIZU,GLENROY LINNChuy [facility]
--- OUTSIDE RECORDS SUMMARY | 2024-12-05 04:43 | XMS_ITS | Encounter Summary ---
Author Name Department of Vetera Affairs ([place]) Organization [facility] of [facility] [place]) Address [address] [place] [id number] Care Team Providers Care Medical Educator Name Role Phone FAHAD BLOCK Primary Care [...] PLAN C May 26, 2016 KYSUPWP [id number] Samara RAMIREZ OBBY PATIENT [facility] BLUECARD MEDICARE SUPPLEMEN SELVIN [place] CKY INDIV IDUAL Jun 26, 2008 [id number] Samara RAMIREZ OBBY PATIENT MEDICARE (WNR) MEDICARE (M) PART A Nov 24, 2001 PART A [id number] [facility] Samara RAMIREZ OBBY PATIENT MEDICARE (WNR) MEDICARE (M) PART B Nov 24, 2001 PART B [id number] [facility] [phone] JAMES,Samara OBBY PATIENT MEDICARE (WNR) MEDICARE (M) PART A Nov 24, 2001 PART A [id number] [facility] RAMIREZ,B OBBY PATIENT MEDICARE (WNR) MEDICARE (M) PART B Nov 24, 2001 PART B [id number] [facility] RAMIREZ,B OBBY PATIENT MEDICARE (WNR) MEDICARE (M) PART A Nov 24, 2001 PART A [id number] RAMIREZ,B OBBY PATIENT MEDICARE (WNR) MEDICARE (M) PART B Nov 24, 2001 PART B [id number] RAMIREZ,B OBBY PATIENT MEDICARE (WNR) MEDICARE (M) PART A Nov 24, 2001 PART A [id number] RAMIREZ,B OBBY PATIENT MEDICARE (WNR) MEDICARE (M) PART B Nov 24, 2001 PART B [id number] JAMES,B OBBY PATIENT Selected Encounter This section includes the information on record at [place] for the Encounter. Date/Time Encounter Type Encounter Description Reason Pro vider Source Dec 05, 2024 08:43 AM Outpatient Encounter PRIMARY CARE/MEDICINE IHE Encounter Template Text not used by [place] Plan of Treatment: Future Appointments (+ 6 months) and Future Tests (+/- 45 days) The Plan of Treatment section includes future care activities for the patient from all [place] treatmentfacilities. This section includes future appointments and future orders which are active, pending or scheduled. Future Appointments This section includes appointments that were scheduled to occur 6 months from the date of the Encounter, up to a maximum of 20 appointments. The data comes from all [place] treatment facilities. Appointment Date/Time Appointment Type Appointme nt Facility Name Dec 10, 2024 07:20 AM [facility] Active, Pending, and Scheduled Orders This section includes a listing of several types of active, pending, and scheduled orders, including clinic medications orders, diagnostic test orders, procedure orders and consult orders; where the start date of the order is 45 days before the date of the Encounter or 45 days after the date of theEncounter. The data comes from all [place] treatment facilities. Test Date/Time Test Type Test Details Facility Name Oct 21, 2024 12:00 AM Laboratory - Chemi stry Order PANEL 4 [id number] SP ONCE [facility] Oct 21, 2024 12:00 AM Laboratory - Chemi stry Order 25-OH VITAMIN D [id number] SP ONCE [facility] Oct 21, 2024 12:00 AM Laboratory - Chemi stry Order PTH INTACT ([place]) [id number] SP ONCE [facility] Social History: Smoking Status (Most current) and Tobacco Use (All prior to encounter date) This section includes the most current, and the historical, smoking and tobacco- related health factors from the [place] facility where the Encounter took place. Current Smoking Status This section includes the most current smoking, or tobacco-related health factor, from the [place] facility where the Encounter took place. Date/Time Current Smoking Status Comment Facil ity May 10, 2024 08:00 AM VA-TOBACCO USER EVERY DAY [facility] Tobacco Use History This section includes a history of the smoking, or tobacco-related health factors, that were collected on or before the date of the Encounter. The data comes from the [place] facility where the Encounter took place. Date/Time Smoking Status/Tobacco Use Comment F acility May 10, 2024 08:00 AM VA-TOBACCO USE ADVICE [facility] May 10, 2024 08:00 AM VA-TOBACCO USE RECRUITER COORDINATOR NO [facility] May 10, 2024 08:00 AM VA-TOBACCO USE MED NO [facility] May 10, 2024 08:00 AM VA-TOBACCO USE WI 30 MIN OF WAKEUP [facility] May 10, 2024 08:00 AM VA-TOBACCO USER EVERY DAY [facility] Jun 02, 2023 08:00 AM VA-TOBACCO USE 30 YEARS OR MORE [facility] Jun 02, 2023 08:00 AM VA-TOBACCO USE ADVICE [facility] Jun 02, 2023 08:00 AM VA-TOBACCO USE RECRUITER COORDINATOR NO [facility] Jun 02, 2023 08:00 AM VA-TOBACCO USE MED NO [facility] Jun 02, 2023 08:00 AM VA-TOBACCO USE WI 30 MIN OF WAKEUP [facility] Jun 02, 2023 08:00 AM VA-TOBACCO USER EVERY DAY [facility] Jun 29, 2022 08:00 AM VA-TOBACCO USE 30 YEARS OR MORE [facility] Jun 29, 2022 08:00 AM VA-TOBACCO USE ADVICE [facility] Jun 29, 2022 08:00 AM VA-TOBACCO USE RECRUITER COORDINATOR NO [facility] Jun 29, 2022 08:00 AM VA-TOBACCO USE MED NO [facility] Jun 29, 2022 08:00 AM VA-TOBACCO USE WI 30 MIN OF WAKEUP [facility] Jun 29, 2022 08:00 AM VA-TOBACCO USER EVERY DAY [facility] Jul 13, 2021 01:30 PM VA-TOBACCO USE 30 YEARS OR MORE [facility] Jul 13, 2021 01:30 PM VA-TOBACCO USE ADVICE [facility] Jul 13, 2021 01:30 PM VA-TOBACCO USE RECRUITER COORDINATOR NO [facility] Jul 13, 2021 01:30 PM VA-TOBACCO USE MED NO [facility] Jul 13, 2021 01:30 PM VA-TOBACCO USE WI 30 MIN OF WAKEUP [facility] Jul 13, 2021 01:30 PM VA-TOBACCO USER EVERY DAY [facility] Dec 31, 2018 08:30 AM VA-TOBACCO USE 30 YEARS OR MORE [facility] Dec 31, 2018 08:30 AM VA-TOBACCO USE ADVICE [facility] Dec 31, 2018 08:30 AM VA-TOBACCO USE RECRUITER COORDINATOR NO [facility] Dec 31, 2018 08:30 AM VA-TOBACCO USE MED NO [facility] Dec 31, 2018 08:30 AM VA-TOBACCO USE WI 30 MIN OF WAKEUP [facility] Dec 31, 2018 08:30 AM VA-TOBACCO USER EVERY DAY [facility] Jan 08, 2018 09:44 AM V9 CURRENT TOBACCO USER [facility] Jan 08, 2018 09:44 AM V9 TOBACCO OFFERED [facility] Jan 08, 2018 09:44 AM V9 TOBACCO USE-DECLINED MEDS [facility] Dec 15, 2016 09:06 AM V9 LIFETIME NON-USER OF TOBACCO [facility] Nov 27, 2014 08:59 AM V9 CURRENT TOBACCO USER [facility] Nov 27, 2014 08:59 AM V9 TOBACCO OFFERED [facility] Nov 27, 2014 08:59 AM V9 TOBACCO USE-DECLINED MEDS [facility] Oct 16, 2013 08:04 AM TOBACCO OFFERRED P T MEDS (PROVIDER) [facility] Oct 16, 2013 08:04 AM V9 CURRENT TOBACCO USER [facility] Oct 16, 2013 08:04 AM V9 TOBACCO OFFERED [facility] Jun 13, 2012 08:13 AM TOBACCO OFFERRED P T MEDS (PROVIDER) [facility] Jun 13, 2012 08:13 AM V9 CURRENT TOBACCO USER [facility] Jun 13, 2012 08:13 AM V9 TOBACCO OFFERED [facility] Apr 06, 2011 07:00 AM TOBACCO OFFERRED P T MEDS (PROVIDER) [facility] Apr 06, 2011 07:00 AM V9 CURRENT TOBACCO USER [facility] Apr 06, 2011 07:00 AM V9 TOBACCO OFFERED [facility] Jan 06, 2010 06:58 PM TOBACCO OFFERRED P T MEDS (PROVIDER) [facility] Jan 06, 2010 06:58 PM V9 CURRENT TOBACCO USER [facility] Jan 06, 2010 06:58 PM V9 TOBACCO OFFERED [facility] Advance Directives: All historical and current Section Date Range: From patient's date of to the date document was created. This section includes ALL of a patient's completed or amended [place] Advance and Rescinded Directives. The entries below indicate that a directive exists for the patient, but an actual copy is not included with this document. The data comes from all [place] facilities. Date Advance Directives Provider Source Oct 17, 2011 ADVANCE DIRECTIVE DISCUSSION AMY VÁSQUEZ [facility] Aug 11, 2010 ADVANCE DIRECTIVE DISCUSSION AMY VÁSQUEZ [facility] Jun 04, 2009 ADVANCE DIRECTIVE DISCUSSION AMY VÁSQUEZ [facility] Encounter Notes: All associated encounter notes This section contains the clinical notes associated to the Encounter. Date/Time Encounter Note(s) Provider Source Dec 05, 2024 08:44 AM ACCOUNTING OF DISC LOSURES NOTE: LOCAL TITLE: STATE PRESCRIPTION DRUG MONITORING PROGRAM STANDARD TITLE: ACCOUNTING OF DISCLOSURES NOTE DATE OF NOTE: DEC 05, 2024@08:44:22 ENTRY DATE: DEC 05, 2024@08:44:22 AUTHOR: FAHAD BLOCK EXP COSIGNER: URGENCY: STATUS: COMPLETED This PDMP query was submitted by Fahad Block MD. The clinical justification for this PDMP query is to review controlled substances prescribed outside of the [facility], and any additional information that may become available, as an important component of standard clinical care, and in accordance with [facility] policy. Patient information was shared with the PDMP [place]. No prescription(s) for controlled substances outside the [facility] were found in the last 90 days. /echo/ FAHAD BLOCK MD Signed: 12/05/2024 08:45 FAHAD BLOCK [facility]
--- OUTSIDE RECORDS SUMMARY | 2024-12-10 03:20 | XMS_ITS | Encounter Summary ---
Author Name [facility] [place] [facility] [place] [facility] [place] Address [address] [place] [id number] Care Team Providers Care Clinical Fellow Name Role Phone FAHAD BLOCK Primary Care [...] Berg's Name Patient's Relationship to Policy Berg [facility] MEDIGAP PLAN C [place] MED-[place] UPP PLAN C May 26, 2016 [id number] Samara RAMIREZ OBBY PATIENT [facility] BLUECARD MEDICARE SUPPLEMEN SELVIN CHASTITYU CKY INDIV IDUAL Jun 26, 2008 [id number] [phone] Samara RAMIREZ OBBY PATIENT MEDICARE (WNR) MEDICARE (M) PART A Nov 24, 2001 PART A [id number] [facility] Samara RAMIREZ OBBY PATIENT MEDICARE (WNR) MEDICARE (M) PART B Nov 24, 2001 PART B [id number] [facility] Samara RAMIREZ OBBY PATIENT MEDICARE (WNR) MEDICARE (M) PART A Nov 24, 2001 PART A [id number] [facility] [phone] RAMIREZ,B OBBY PATIENT MEDICARE (WNR) MEDICARE (M) PART B Nov 24, 2001 PART B [id number] [facility] [id number] RAMIRZE,B OBBY PATIENT MEDICARE (WNR) MEDICARE (M) PART A Nov 24, 2001 PART A [id number] [phone] RAMIREZ,B OBBY PATIENT MEDICARE (WNR) MEDICARE (M) PART B Nov 24, 2001 PART B [id number] RAMIREZ,B OBBY PATIENT MEDICARE (WNR) MEDICARE (M) PART A Nov 24, 2001 PART A [id number] RAMIREZ,B OBBY PATIENT MEDICARE ([place]NR) MEDICARE (M) PART B Nov 24, 2001 PART B [id number] RAMIREZ,B OBBY PATIENT Selected Encounter This section includes the information on record at [place] for the Encounter. Date/Time Encounter Type Encounter Description Reason Provider Source Dec 10, 2024 07:20 AM OFFICE O/P EST MOD 30 MIN OPTOMETRY ICD-10-CM E11.9 Type 2 diabetes mellitus without complications JJ LEIGH Anil Encounter Template Text not used by [place] Assessments - Encounter Diagnoses This section includes the primary and secondary diagnoses documented for the Encounter. Date/Time Primary/Secondary Diagnosis Diagnosis Name Provider Source Dec 10, 2024 08:13 AM PRIMARY Type 2 diabetes mellitus without complications JJ LEIGH [facility] Dec 10, 2024 08:13 AM SECONDARY Dry eye syndrome of bilateral lacrimal glands JJ LEIGH [facility] Dec 10, 2024 08:13 AM SECONDARY Presbyopia JJ LEIGH [facility] Dec 10, 2024 08:13 AM SECONDARY Presence of intraocular lens JJ LEIGH [facility] Social History: Smoking Status (Most current) and Tobacco Use (All prior to encounter date) This section includes the most current, and the historical, smoking and tobacco- related health factors from the [place] facility where the Encounter took place. Current Smoking Status This section includes the most current smoking, or tobacco-related health factor, from the [place] facility where the Encounter took place. Date/Time Current Smoking Status Comment Facil stella May 10, 2024 08:00 AM VA-TOBACCO USER EVERY DAY [facility] Tobacco Use History This section includes a history of the smoking, or tobacco-related health factors, that were collected on or before the date of the Encounter. The data comes from the [place] facility where the Encounter took place. Date/Time Smoking Status/Tobacco Use Comment F acility May 10, 2024 08:00 AM VA-TOBACCO USE ADVICE [facility] May 10, 2024 08:00 AM VA-TOBACCO USE CHURN DRILLER NO [facility] May 10, 2024 08:00 AM VA-TOBACCO USE MED NO [facility] May 10, 2024 08:00 AM VA-TOBACCO USE WI 30 MIN OF WAKEUP [facility] May 10, 2024 08:00 AM VA-TOBACCO USER EVERY DAY [facility] Jun 02, 2023 08:00 AM VA-TOBACCO USE 30 YEARS OR MORE [facility] Jun 02, 2023 08:00 AM VA-TOBACCO USE ADVICE [facility] Jun 02, 2023 08:00 AM VA-TOBACCO USE CHURN DRILLER NO [facility] Jun 02, 2023 08:00 AM VA-TOBACCO USE MED NO [facility] Jun 02, 2023 08:00 AM VA-TOBACCO USE WI 30 MIN OF WAKEUP [facility] Jun 02, 2023 08:00 AM VA-TOBACCO USER EVERY DAY [facility] Jun 29, 2022 08:00 AM VA-TOBACCO USE 30 YEARS OR MORE [facility] Jun 29, 2022 08:00 AM VA-TOBACCO USE ADVICE [facility] Jun 29, 2022 08:00 AM VA-TOBACCO USE CHURN DRILLER NO [facility] Jun 29, 2022 08:00 AM VA-TOBACCO USE MED NO [facility] Jun 29, 2022 08:00 AM VA-TOBACCO USE WI 30 MIN OF WAKEUP [facility] Jun 29, 2022 08:00 AM VA-TOBACCO USER EVERY DAY [facility] Jul 13, 2021 01:30 PM VA-TOBACCO USE 30 YEARS OR MORE [facility] Jul 13, 2021 01:30 PM VA-TOBACCO USE ADVICE [facility] Jul 13, 2021 01:30 PM VA-TOBACCO USE CHURN DRILLER NO [facility] Jul 13, 2021 01:30 PM VA-TOBACCO USE MED NO [facility] Jul 13, 2021 01:30 PM VA-TOBACCO USE WI 30 MIN OF WAKEUP [facility] Jul 13, 2021 01:30 PM VA-TOBACCO USER EVERY DAY [facility] Dec 31, 2018 08:30 AM VA-TOBACCO USE 30 YEARS OR MORE [facility] Dec 31, 2018 08:30 AM VA-TOBACCO USE ADVICE [facility] Dec 31, 2018 08:30 AM VA-TOBACCO USE CHURN DRILLER NO [facility] Dec 31, 2018 08:30 AM VA-TOBACCO USE MED NO [facility] Dec 31, 2018 08:30 AM VA-TOBACCO USE WI 30 MIN OF WAKEUP [facility] Dec 31, 2018 08:30 AM VA-TOBACCO USER EVERY DAY [facility] Jan 08, 2018 09:44 AM V9 CURRENT TOBACCO USER [facility] Jan 08, 2018 09:44 AM V9 TOBACCO OFFERED [facility] Jan 08, 2018 09:44 AM V9 TOBACCO USE-DECLINED MEDS [facility] Dec 15, 2016 09:06 AM V9 LIFETIME NON-USER OF TOBACCO [facility] Nov 27, 2014 08:59 AM V9 CURRENT TOBACCO USER [facility] Nov 27, 2014 08:59 AM V9 TOBACCO OFFERED [facility] Nov 27, 2014 08:59 AM V9 TOBACCO USE-DECLINED MEDS [facility] Oct 16, 2013 08:04 AM TOBACCO OFFERRED P T MEDS (PROVIDER) [facility] Oct 16, 2013 08:04 AM V9 CURRENT TOBACCO USER [facility] Oct 16, 2013 08:04 AM V9 TOBACCO OFFERED [facility] Jun 13, 2012 08:13 AM TOBACCO OFFERRED P T MEDS (PROVIDER) [facility] Jun 13, 2012 08:13 AM V9 CURRENT TOBACCO USER [facility] Jun 13, 2012 08:13 AM V9 TOBACCO OFFERED [facility] Apr 06, 2011 07:00 AM TOBACCO OFFERRED P T MEDS (PROVIDER) [facility] Apr 06, 2011 07:00 AM V9 CURRENT TOBACCO USER [facility] Apr 06, 2011 07:00 AM V9 TOBACCO OFFERED [facility] Jan 06, 2010 06:58 PM TOBACCO OFFERRED P T MEDS (PROVIDER) [facility] Jan 06, 2010 06:58 PM V9 CURRENT TOBACCO USER [facility] Jan 06, 2010 06:58 PM V9 TOBACCO OFFERED [facility] Advance Directives: All historical and current Section Date Range: From patient's date of to the date document was created. This section includes ALL of a patient's completed or amended [place] Advance and Rescinded Directives. The entries below indicate that a directive exists for the patient, but an actual copy is not included with this document. The data comes from all [place] facilities. Date Advance Directives Provider Source Oct 17, 2011 ADVANCE DIRECTIVE DISCUSSION FAHAD,CO DARÍO Salazar [facility] Aug 11, 2010 ADVANCE DIRECTIVE DISCUSSION FAHAD,CO LETTAnil Salazar [facility] Jun 04, 2009 ADVANCE DIRECTIVE DISCUSSION FAHAD,CO LETTE Martin [facility] Encounter Notes: All associated encounter notes This section contains the clinical notes associated to the Encounter. Date/Time Encounter Note(s) Provider Source Dec 10, 2024 08:05 AM STUDENT NOTE: LOCAL TITLE: MEDICAL STUDENT SOAP NOTE STANDARD TITLE: STUDENT NOTE DATE OF NOTE: DEC 10, 2024@08:05 ENTRY DATE: DEC 10, 2024@08:05:09 AUTHOR: HAY BOWER COSIGNER: JJ LEIGH URGENCY: STATUS: COMPLETED I participated in this patient care encounter with Dr. Leigh. /echo/ HAY BOWER Optometry Student Signed: 12/10/2024 08:05 /echo/ JJ LEIGH Chief of Optometry Cosigned: 12/10/2024 08:14 [facility] Dec 10, 2024 07:19 AM OPTOMETRY NOTE: LOCAL TITLE: OPTOMETRY ATTENDING NOTE STANDARD TITLE: OPTOMETRY NOTE DATE OF NOTE: DEC 10, 2024@07:19 ENTRY DATE: DEC 10, 2024@07:19:47 AUTHOR: JJ LEIGH EXP COSIGNER: URGENCY: STATUS: COMPLETED Type of exam: Comprehensive Chief complaint/Reason for visit: 89YO WHITE patient presents for diabetic eye exam and to monitor pseudophakia OU and MENA OU. Pt denies distance and near blur with glasses. Pt does have dryness and uses VA ATs 1x/day, wants some refills. Pt denies new flashes or floaters. Has to tilt head back to see out of reading portion at times. Bgl range: normal Ocular History: СЕРГЕЙ: 12/12/23 (-) Eye Injury: (-) Eye Surgery/Laser Tx: CE IOL OU (08/19 OD, 10/17 OS) (-) Eye Infection: (+) Other: H/o of asymptomatic retinal plaque OS (04/2023), MENA OU, pseudophakia OU (-) History of Cancer (-) History of Known CVA (+) Use of Anticoagulant Type: Aspirin 81 mg Ocular Medications: Dextran 1 x day OU (-) History of allergies to ocular medications Family history: None Smoking history: (+) Smoking If currently smoking, is pt interested in smoking cessation? No Duration, packs per day: 50+ yrs, <1 PPD Pt is aware of availability of support groups/medication/other resources to help with smoking cessation at the [place] Diabetes History: Date of Dx: Last HemA1C: Z GLYCOHEMOGLOBIN (HPLC) 05/10/24 08:49 7.5 H 06/02/23 08:42 6.7 H Additional Diabetic retinopathy risk factors: (+) Hypertension (-) Proteinuria (+) Dyslipidemia (-) Poor control of diabetes (-) Currently (-) Sedentary lifestyle/Lack of exercise Additional Risk Factors for Macular Degeneration: (+) Patient is over age 60 (+) Obesity (Centers for Disease Control and Prevention definition: BMI of 30 or more) (+) Pt has heritage (-) Female sex Additional Glaucoma Risk Hx: (-) over age 40 (+) Pt is over age 60 (-) Pt has [place]ym[place] heritage Medical history: Active problems - Computerized Problem List is the source for the followin. Chronic obstructive lung disease 2. Diabetes mellitus 3. Hyperlipidemia 4. Coronary artery disease 5. Gastroesophageal reflux disease 6. Low back pain 7. Coronary arteriosclerosis 8. Degeneration of cervical intervertebral disc (SNOMED CT 83094652) 9. Chronic kidney disease (SNOMED CT 031639797) 10. Tobacco use (SNOMED CT 461631297) 11. Personal History of Colonic Polyps 12. Internal hemorrhoids without mention of complication 13. Hearing loss (SNOMED CT 19583320) 14. Peripheral Vascular Disease 15. Type 2 diabetes mellitus (SNOMED CT 79173627) 16. Osteoarthritis 17. Chronic ischemic heart disease 18. Hypertension (SNOMED CT 29390259) 19. Other and unspecified hyperlipidemia 20. Aneurysm, Aorta, Abdominal 4.5CM2 02/25 Allergies: ATORVASTATIN, CLOPIDOGREL, PENICILLIN Medications: Active Outpatient Medications (including Supplies): Active Outpatient Medications Status 1) AMLODIPINE BESYLATE 10MG TAB TAKE ONE TABLET BY MOUTH DAILY ACTIVE FOR BLOOD PRESSURE/HEART - DO NOT DRINK GRAPEFRUIT JUICE WHILE ON THIS DRUG 2) CHOLECALCIF 25MCG (D3-1,000UNIT) TAB TAKE ONE TABLET BY ACTIVE MOUTH DAILY FOR VITAMIN D SUPPLEMENT 3) EMPAGLIFLOZIN 25MG TAB TAKE ONE TABLET BY MOUTH EVERY ACTIVE MORNING Indication: FOR BLOOD SUGAR 4) FLUTICAS 250/SALMETEROL 50 INHL DISK 60 INHALE 1 INHALATION ACTIVE BY MOUTH TWICE A DAY -RINSE MOUTH AND SPIT AFTER EACH USE Indication: FOR BREATHING 5) GLIPIZIDE 5MG TAB TAKE ONE TABLET BY MOUTH EVERY DAY FOR ACTIVE DIABETES 6) HYDROCODONE 7.5/ACETAMINOPHEN 325MG TAB TAKE 1 TABLET BY ACTIVE MOUTH THREE TIMES A DAY FOR PAIN 7) ISOSORBIDE MONONITRATE 30MG SA TAB TAKE ONE TABLET BY MOUTH ACTIVE DAILY FOR HEART 8) LISINOPRIL 10MG TAB TAKE ONE-HALF TABLET BY MOUTH DAILY ACTIVE Indication: FOR HIGH BLOOD PRESSURE 9) PANTOPRAZOLE NA 40MG EC TAB TAKE ONE TABLET BY MOUTH EVERY ACTIVE DAY 30 MINUTES BEFORE A MEAL FOR STOMACH. TAKE ON AN EMPTY STOMACH. 10) ROSUVASTATIN CA 40MG TAB TAKE ONE-HALF TABLET BY MOUTH AT ACTIVE BEDTIME Indication: FOR CHOLESTEROL 11) SODIUM BICARBONATE 650MG TAB TAKE ONE TABLET BY MOUTH TWICE ACTIVE A DAY Indication: FOR EXCESS BODY ACID Active Non-VA Medications Status 1) Non-VA ASCORBIC [...] SULFATE) CAP,ORAL 25MG MOUTH EVERY EVENING ACTIVE 18 Total Medications Medication list reviewed by: Angy Medication list is accurate per patient/doctor review, Pt/significant other reports patient taking ALL VA, Non VA, OTC medications as listed on medication tab. Describe Discrepancies: Printed copy of medication list provided to patient and/or significant other and reviewed: Yes Explained to patient and/or significant other the importance of keeping providers updated on medication changes and to carrying an updated list of medication at all times in case of an emergency situation. Yes Medication changes reviewed, patient/significant other verbalized understanding, provided updated list. VA: cc 2020-1 20- Habitual Rx: OD: +1.00 -2.75 x 095 OS: -0.25 -1.00 x 094 Add +2.50 EOMs: Full and unrestricted OU, No Diplopia Confrontation VF: Full to finger count OU Pupils: PERRL, no APD Refraction: OD: +1.00-2.25k388 20/20 OS: +0.25-1.34l753 20/20-1 Add: +2.50 Final RX: Same as above SLIT LAMP EXAM: Lids/lashes: mild DMC OU Conj/sclera: papillae OU, temp pinguecula OU, few concretions OS Cornea: arcus OU Anterior chamber: D/q OU Iris/pupil: Flat/round OU, No rubeosis OU Informed consent obtained prior to instillation of all diagnostic pharmaceutical agents. IOPs (Goldmann applanation): igt Altafluor Benox OD, OS OD: 18 OS: 18 Time: 737 Angles: VH 4+ N/T OU OCULAR HEALTH: igt 1% Tropicacyl OD, igt 1% Tropicacyl OS, igt 2.5% Phenylephrine OD, igt 2.5% Phenylephrine OS Time: 737 Lenses used for viewinD, 20D LENS: OD: PC IOL clear and centered OS: PC IOL centered, trace PCO C/D: H/ V OD: 0.35/0.35 NRRI, No NVD, No Hemes, No Pallor, No Edema OS: 0.30/0.30 NRRI, No NVD, No Hemes, No Pallor, No Edema Size: average MACULA: OD: Flat, even pigment, No DME OS: Flat, even pigment, No DME VESSELS: OD: 2/3 AV OS: 2/3 AV POSTERIOR POLE: OD: Clear, No NVE OS: Clear, No NVE VITREOUS: OD: Clear OS: Clear PERIPHERY: OD: No holes, tears or breaks OS: No holes, tears or breaks ADDITIONAL TESTING: none A: 1. Type 2 Diabetes Mellitus with no retinopathy OU - (-) diabetic macular edema OU 2. Dry eye syndrome OU 3. Pseudophakia OU -BCVA 20/20 OD and 20/20-1 OS 4. Presbyopia OU P: 1. Discussed with patient the importance of good blood pressure, blood sugar, cholesterol and lipid control. Discussed with patient the importance of regular, preventative eye screenings in the future to reduce risk of vision loss secondary to diabetes. Monitor per peer review guidelines. 2. Patient educated on the use of VA artificial tears 3-4 times per day OU. Sent refill on VA ATs to Pt. Patient to RTC should symptoms worsen or not improve with supportive intervention. 3. Pt educated about findings, IOLs well centered. Continue to monitor yearly. 4. New FT-28 Spec Rx released today. Continue to monitor. The voiced understanding of topics covered/discussed in today's visit. Next visit: 12 months with attending 2 for CEE. /echo/ JJ LEIGH Chief of Optometry Signed: 12/10/2024 08:14 JJ LEIGH [facility]
--- OUTSIDE RECORDS SUMMARY | 2025-01-06 05:16 | XMS_ITS | Continuity of Care Document ---
Author Name [facility] Organization 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 Unavailable Unavailable Problems Combined list of problems from Department of Defense and Veterans Affairs facilities. It does not include entries that were removed or entered in error. 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, 2002 Entered By: Janes VÁSQUEZ Comment: 4.5CM2 02/25 [place] Chronic ischemic heart disease Active Condition [place] Chronic kidney disease (SNOMED CT 405269721) Active Condition [place] Chronic obstructive lung disease Active Condition [place] Coronary arteriosclerosis Active Condition [place] [facility] Coronary artery disease Active Condition [place] Degeneration of cervical intervertebral disc (SNOMED CT 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) Active Condition [place] Diabetes mellitus Active Condition [facility] [facility] Gastroesophageal reflux disease Active Condition [place] [facility] Hearing loss (SNOMED CT 24803294) Active Condition [place] Hyperlipidemia Active Condition [place] Hypertension (SNOMED CT 26124937) Active Condition [place] Internal hemorrhoids without mention of complication (ICD-9-CM 455.0) Active Condition [place] Low back pain Active Condition [place] Osteoarthritis Active Condition [place] Other and unspecified hyperlipidemia Active Condition [place] [facility] Peripheral Vascular Disease Active Condition [place] Personal History of Colonic Polyps (ICD-9-CM V12.72) Active Condition [place] Tobacco use (SNOMED CT 198818564) Active Condition [place] Type 2 diabetes mellitus (SNOMED CT 60281872) Active Condition [place] Diagnosis: ICD-10-CM E11.9 Type 2 diabetes mellitus without complications Active Diagnosis [facility] Diagnosis: ICD-10-CM N18.32 Chronic kidney disease, stage 3b Active Diagnosis [facility] Diagnosis: ICD-10-CM 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 [facility] Diagnosis: ICD-10-CM M54.59 Other low back pain Active Diagnosis [facility] Diagnosis: ICD-10-CM R79.9 Abnormal finding of blood chemistry, unspecified Active Diagnosis [facility] Diagnosis: ICD-10-CM E11.8 Type 2 diabetes mellitus with unspecified complications Active Diagnosis [facility] Diagnosis: ICD-10-CM 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 Diagnosis [facility] Diagnosis: ICD-10-CM H04.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 Active Diagnosis [facility] Diagnosis: ICD-10-CM Z98.42 Cataract extraction status, left eye Active Diagnosis [facility] Diagnosis: ICD-10-CM Z48.810 Encntr for surgical aftcr fol surgery on the sense organs Active Diagnosis [facility] Diagnosis: ICD-10-CM Z71.81 Spiritual or bahai counseling Active Diagnosis [facility] Diagnosis: ICD-10-CM H25.12 Age-related nuclear cataract, left eye Active Diagnosis [facility] Diagnosis: ICD-10-CM Z98.41 Cataract extraction status, right eye Active Diagnosis [facility] Diagnosis: ICD-10-CM R05.9 Cough, unspecified Active Diagnosis [facility] Diagnosis: ICD-10-CM H25.11 Age-related nuclear cataract, right eye Active Diagnosis [facility] Diagnosis: ICD-10-CM Z01.818 Encounter for other preprocedural examination Active Diagnosis [facility] Diagnosis: ICD-10-CM Z71.89 Other specified counseling Active Diagnosis [facility] Diagnosis: ICD-10-CM I10 Essential (primary) hypertension Active Diagnosis [facility] Medications Combined list of outpatient medications [...] WHILE ON THIS DRUG ORAL ACTIVE 01/19/2025 [id number] 5 HUMAIRA BLOCK 2024 90 [place] [facility] AMLODIPINE BESYLATE 10MG TAB TAKE ONE TABLET BY MOUTH DAILY FOR BLOOD PRESSURE /HEART - DO NOT DRINK GRAPEFRU IT JUICE WHILE ON THIS DRUG ORAL DISCONT INUED 08/08/2024 [id number] 5 HUMAIRA BLOCK 2024 90 [place] [facility] AMLODIPINE BESYLATE 10MG TAB TAKE ONE TABLET BY MOUTH DAILY FOR BLOOD PRESSURE /HEART - DO NOT DRINK GRAPEFRU IT JUICE WHILE ON THIS DRUG ORAL DISCONT INUED 07/14/2024 [id number] 4 DAGO POTTER IN C 2023 90 [place] [facility] AMLODIPINE BESYLATE 10MG TAB TAKE ONE TABLET BY MOUTH DAILY FOR BLOOD PRESSURE /HEART - DO NOT DRINK GRAPEFRU IT JUICE WHILE ON THIS DRUG ORAL DISCONT INUED 04/15/2024 [id number] 4 DAGO POTTER IN C 2023 90 [place] [facility] AMLODIPINE BESYLATE 10MG TAB TAKE ONE TABLET BY MOUTH DAILY FOR BLOOD PRESSURE /HEART - DO NOT DRINK GRAPEFRU IT JUICE WHILE ON THIS DRUG ORAL DISCONT INUED 01/14/2024 [id number] 4 DAGO POTTER IN C 2023 90 [place] [facility] ASCORBIC ACID 500MG TAB TAKE TWO TABLETS BY MOUTH DAILY ORAL ACTIVE MILLER VÁSQUEZ W 2007 [place] ASPIRIN 81MG TAB,EC TAKE ONE TABLET BY MOUTH QD ORAL ACTIVE MILLER VÁSQUEZ W 2007 [place] CARVEDILOL 25MG TAB TAKE ONE-HALF TABLET BY MOUTH TWICE A DAY FOR HEART ORAL ACTIVE 12/24/2025 [id number] 5 MARIETTA FINNEGAN R 2024 90 [place] [facility] CARVEDILOL 25MG TAB TAKE ONE-HALF TABLET BY MOUTH TWICE A DAY FOR HEART ORAL DISCONT INUED 10/16/2024 [id number] 5 MARIETTA FINNEGAN R 2023 90 [place] [facility] CHOLECALCIF GHADA 25MCG (1,000UNIT) TAB TAKE ONE TABLET BY MOUTH DAILY FOR VITAMIN D SUPPLEME NT ORAL ACTIVE 10/22/2025 [id number] 5 MARIETTA FINNEGAN R 2024 100 [place] [facility] CHOLECALCIF GHADA 25MCG (1,000UNIT) TAB TAKE ONE TABLET BY MOUTH DAILY FOR VITAMIN D SUPPLEME NT ORAL DISCONT INUED 10/16/2024 [id number] 5 MARIETTA FINNEGAN R 2023 100 [place] [facility] DEXTRAN 70/GLYCERIN 0.2%/HYPROM ELLOSE 0.3% SOLN,OPH PUT 1 DROP IN BOTH EYES THREE TIMES A DAY FOR DRY EYES OPHTHA LMIC ACTIVE 12/11/2025 [id number] 5 DMITRY MENDEZ 2024 15 [place] [facility] DEXTRAN 70/GLYCERIN 0.2%/HYPROM ELLOSE 0.3% SOLN,OPH PUT 1 DROP IN BOTH EYES TWICE A DAY FOR DRY EYES OPHTHA LMIC 05/02/2024 [id number] 4 SOURAV PEDRO 2022 30 [place] [facility] EMPAGLIFLOZ IN 25MG TAB TAKE ONE TABLET BY MOUTH EVERY MORNING FOR BLOOD SUGAR ORAL ACTIVE 12/14/2025 [id number] 5 HUMAIRA BLOCK 2024 90 [place] [facility] EMPAGLIFLOZ IN 25MG TAB TAKE ONE TABLET BY MOUTH EVERY MORNING FOR BLOOD SUGAR ORAL DISCONT INUED 12/30/2024 [id number] 5 HUMAIRA BLOCK TA 2023 90 [place] [facility] FISH OIL 1000MG (500MG DHA/EPA) CAP,ORAL TAKE 2 CAPSULES BY MOUTH TWICE A DAY ORAL ACTIVE DAGO POTTER IN C 2018 [place] [facility] [place] FLUTICASONE 250MCG/SALM ETEROL 50MCG INHL,ORAL,D ISKUS,60 INHALE 1 INHALATI ON BY MOUTH TWICE A DAY FOR BREATHIN G -RINSE MOUTH AND SPIT AFTER EACH USE RESPIR ATORY (INHAL ATION) ACTIVE 01/16/2025 [id number] 4 MARIETTA FINNEGAN R 2023 3 [place] [facility] FLUTICASONE 250MCG/SALM ETEROL 50MCG INHL,ORAL,D ISKUS,60 INHALE 1 INHALATI ON BY MOUTH TWICE A DAY FOR BREATHIN G -RINSE MOUTH AND SPIT AFTER EACH USE RESPIR ATORY (INHAL ATION) DISCONT INUED 08/23/2024 [id number] 4 MARIIA OVERTON 2023 3 [place] GLIPIZIDE 5MG TAB TAKE ONE TABLET BY MOUTH EVERY DAY FOR DIABETES ORAL ACTIVE 09/24/2025 [id number] 5 MARIETTA FINNEGAN R 2024 90 [place] [facility] GLIPIZIDE 5MG TAB TAKE ONE TABLET BY MOUTH EVERY DAY FOR DIABETES ORAL DISCONT INUED 07/17/2024 [id number] 4 MARIETTA FINNEGAN R 2023 90 [place] [facility] HYDROCODONE 7.5MG/ACETA MINOPHEN 325MG TAB TAKE 1 TABLET BY MOUTH THREE TIMES A DAY FOR PAIN ORAL 01/04/2025 [id number] 5 HUMAIRA BLOCK 2024 90 [place] [facility] HYDROCODONE 7.5MG/ACETA MINOPHEN 325MG TAB TAKE 1 TABLET BY MOUTH THREE TIMES A DAY FOR PAIN ORAL 09/05/2024 [id number] 5 KOUSA,KIT TA 2024 90 [place] [facility] HYDROCODONE 7.5MG/ACETA MINOPHEN 325MG TAB TAKE 1 TABLET BY MOUTH THREE TIMES A DAY FOR PAIN ORAL 07/16/2024 [id number] 4 KOUSA,KIT TA 2023 90 [place] [facility] HYDROCODONE 7.5MG/ACETA MINOPHEN 325MG TAB TAKE 1 TABLET BY MOUTH THREE TIMES A DAY FOR PAIN ORAL 06/07/2024 [id number] 4 KOUSA,KIT TA 2023 90 [place] [facility] HYDROCODONE 7.5MG/ACETA MINOPHEN 325MG TAB TAKE 1 TABLET BY MOUTH THREE TIMES A DAY FOR PAIN ORAL 04/03/2024 [id number] 4 KOUSA,KIT TA 2023 90 [place] [facility] HYDROCODONE 7.5MG/ACETA MINOPHEN 325MG TAB TAKE 1 TABLET BY MOUTH THREE TIMES A DAY FOR PAIN ORAL 02/22/2024 [id number] 4 KOUSA,KIT TA 2023 90 [place] [facility] ISOSORBIDE MONONITRATE 30MG TAB,SA TAKE ONE TABLET BY MOUTH DAILY FOR HEART ORAL ACTIVE 05/11/2025 [id number] 5 KOUSA,KIT TA 2024 90 [place] [facility] ISOSORBIDE MONONITRATE 30MG TAB,SA TAKE ONE TABLET BY MOUTH DAILY FOR HEART ORAL DISCONT INUED 07/17/2024 [id number] 4 MARIETTA FINNEGAN 2023 90 [place] [facility] LISINOPRIL 10MG TAB TAKE ONE-HALF TABLET BY MOUTH DAILY FOR HIGH BLOOD PRESSURE ORAL ACTIVE 05/20/2025 [id number] 5 KOUSA,KIT TA 2023 45 [place] [facility] MULTIVITAMI NS W/MINERALS CAP/TAB TAKE ONE TABLET BY MOUTH DAILY ORAL ACTIVE MILLER VÁSQUEZ 2007 [place] NIACIN (SLO-NIACIN ) 500MG TAB,SA TAKE TWO TABLETS BY MOUTH AT BEDTIME ORAL ACTIVE DAGO POTTER IN C 2018 [place] [facility] PANTOPRAZOL E NA 40MG TAB,EC TAKE ONE TABLET BY MOUTH EVERY DAY 30 MINUTES BEFORE A MEAL FOR STOMACH. TAKE ON AN EMPTY STOMACH. ORAL ACTIVE 08/27/2025 [id number] 5 MARIETTA FINNEGAN R 2024 90 [place] [facility] PANTOPRAZOL E NA 40MG TAB,EC TAKE ONE TABLET BY MOUTH EVERY DAY 30 MINUTES BEFORE A MEAL FOR STOMACH. TAKE ON AN EMPTY STOMACH. ORAL DISCONT INUED 07/17/2024 [id number] 4 MARIETTA FINNEGAN R 2023 90 [place] [facility] POLYETHYLEN E GLYCOL 3350 PWDR,ORAL MIX 1 HEAPING TABLESPO ONFUL IN LIQUID AND TAKE BY MOUTH DAILY ORAL ACTIVE DAGO POTTER IN C 2018 [place] [facility] ROSUVASTATI N CA 20MG TAB TAKE ONE-HALF TABLET BY MOUTH AT BEDTIME FOR CHOLESTE ROL ORAL DISCONT INUED (EDIT) 10/16/2024 [id number] 4 MARIETTA FINNEGAN 2023 45 [place] [facility] ROSUVASTATI N CA 20MG TAB TAKE ONE-HALF TABLET BY MOUTH AT BEDTIME FOR CHOLESTE ROL ORAL DISCONT INUED 02/07/2024 [id number] 4 Josy JOHNSON 2022 45 [place] [facility] ROSUVASTATI N CA 40MG TAB TAKE ONE-HALF TABLET BY MOUTH AT BEDTIME FOR CHOLESTE ROL ORAL ACTIVE 05/20/2025 [id number] 5 HUMAIRA BLOCK 2023 45 [place] [facility] SODIUM BICARBONATE 650MG TAB TAKE ONE TABLET BY MOUTH TWICE A DAY FOR EXCESS BODY ACID ORAL ACTIVE 07/24/2025 [id number] 5 Nadia GAY W 2024 180 [place] ZINC (FROM SULFATE) CAP,ORAL TAKE 25MG BY MOUTH EVERY EVENING ORAL ACTIVE DAGO POTTER 2019 [place] [facility] Allergies, Adverse Reactions, Alerts Combined list of allergies from Department of [facility] and Veterans Affairs facilities. It does not include entries that were removed or entered in error. Substance Category Reaction Severity Reaction type Status Date Reported Comments Source ATORVASTATIN Propensity to adverse reactions to drug (finding) Muscle pain MILD active 1 [facility] CLOPIDOGREL Propensity to adverse reactions to drug (finding) Loss of appetite, Taste sense altered active 2 [facility] PENICILLIN Propensity to adverse reactions to drug (finding) Urticaria active 9 [facility] Immunizations Combined list of available immunizations from the Department of [facility] and Veterans Affairs facilities. Immunization Series Date Given Administered By Site Reaction Lot Number CVX Code Drug Abe Teacher Status Comments Source INFLUENZA, HIGH-DOSE, TRIVALENT, PF 2 2023 135 complet ed HISTORICA L INFORMATI ON - FROM OTHER REGISTRY, [place] [facility] INFLUENZA, UNSPECIFIED FORMULATION 2022 88 complet ed HISTORICA L INFORMATI ON - FROM OTHER PROVIDER, [place] [facility] COVID-19 (Appsembler), MRNA, LNP-S, BIVALENT BOOSTER, PF, 30 MCG/0.3 ML DOSE 1 2022 DEJON SPEARS LEFT DELTO ID [id number] 300 complet ed ADMINISTE RED AT IN, [place] [facility] INFLUENZA, UNSPECIFIED FORMULATION 2021 88 complet ed HISTORICA L INFORMATI ON - FROM OTHER PROVIDER, [place] [facility] COVID-19 (Appsembler), MRNA, LNP-S, PF, 30 MCG/0.3 ML DOSE, EMERITA-SUCROSE (AGES 12+ YEARS) 4 2021 217 complet ed PFR; [id number]; 2 [place] INFLUENZA VACCINE, QUADRIVALENT, ADJUVANTED 1 2020 205 complet ed HISTORICA L INFORMATI ON - FROM OTHER REGISTRY, [place] [facility] COVID-19 (PFIZER), MRNA, LNP-S, PF, 30 MCG/0.3 ML DOSE 3 2020 208 complet ed [place] [facility] TDAP 1 2020 115 complet ed HISTORICA L INFORMATI ON - FROM OTHER REGISTRY, [place] [facility] COVID-19 (PFIZER), MRNA, LNP-S, PF, 30 MCG/0.3 ML DOSE 2 2020 208 complet ed PFR; [id number]; 1 [place] COVID-19 (PFIZER), MRNA, LNP-S, PF, 30 MCG/0.3 ML DOSE 1 2020 208 complet ed PFR; [id number]; 1 [place] INFLUENZA, SEASONAL, INJECTABLE 2018 141 complet ed UTD [place] [facility] INFLUENZA, SEASONAL, INJECTABLE 2017 141 complet ed [place] [facility] INFLUENZA A & B (HISTORICAL) 2014 88 complet ed [place] [facility] INFLUENZA A & B (HISTORICAL) 2013 88 complet ed [place] [facility] INFLUENZA A & B (HISTORICAL) 2011 88 complet ed [place] [facility] INFLUENZA A & B (HISTORICAL) 2010 88 complet ed [place] [facility] INFLUENZA A & B (HISTORICAL) 2009 88 complet ed [place] [facility] TD(ADULT) UNSPECIFIED FORMULATION 2009 139 complet ed [place] [facility] INFLUENZA A & B (HISTORICAL) 2008 88 complet ed [place] [facility] INFLUENZA A & B (HISTORICAL) 2007 88 complet ed [place] [facility] INFLUENZA A & B (HISTORICAL) 2006 88 complet ed [place] [facility] INFLUENZA A & B (HISTORICAL) 2005 88 complet ed [place] [facility] TD(ADULT) UNSPECIFIED FORMULATION 2005 139 complet ed [place] [facility] INFLUENZA A & B (HISTORICAL) 2004 88 complet ed UP TO DATE [place] [facility] INFLUENZA A & B (HISTORICAL) 2003 88 complet ed UP TO DATE FOR 2003- [place] [facility] INFLUENZA A & B (HISTORICAL) 2003 88 complet ed no reaction [place] [facility] INFLUENZA, UNSPECIFIED FORMULATION 2002 88 complet ed no reaction [place] [facility] INFLUENZA, UNSPECIFIED FORMULATION 2001 88 complet ed [place] [facility] PNEUMOCOCCAL, UNSPECIFIED FORMULATION 2001 109 complet ed Up to date. [place] [facility] TD(ADULT) UNSPECIFIED FORMULATION 1996 139 complet ed Up to date. [place] [facility] Results Combined list of recent chemistry, [...] Jun 25, 2024 10:29 AM Reporting Lab: [facility] [address] [address] Performing Lab: [facility] [place] [phone] [facility] URINALYS IS APPEARANCE OF URINE Clear 07/23 Specimen Type: URINE No comment entered. Ordering Provider: MAKENZIE GAY Report Released Date/Time: Jun 25, 2024 10:29 AM Reporting Lab: [facility] [address] [address] Performing Lab: [facility] [address] [facility] URINALYS IS UROBILINOG EN [MASS/VOLU ME] IN URINE BY TEST STRIP Normalmg /dL 07/23 Specimen Type: URINE No comment entered. Ordering Provider: MAKENZIE GAY Report Released Date/Time: Jun 25, 2024 10:29 AM Reporting Lab: [facility] [address] [address] Performing Lab: [address] [address] [facility] URINALYS IS HEMOGLOBIN [PRESENCE] IN URINE BY TEST STRIP Negative 07/23 Specimen Type: URINE No comment entered. Ordering Provider: MAKENZIE GAY Report Released Date/Time: Jun 25, 2024 10:29 AM Reporting Lab: [facility] [address] [address] Performing Lab: [address] [id number] [place] [address] URINALYS IS BILIRUBIN. TOTAL [PRESENCE] IN URINE BY TEST STRIP Negative 07/23 Specimen Type: URINE No comment entered. Ordering Provider: MAKENZIE GAY Report Released Date/Time: Jun 25, 2024 10:29 AM Reporting Lab: [facility] [address] [address] Performing Lab: [address] [address] [facility] URINALYS IS KETONES [MASS/VOLU ME] IN URINE BY TEST STRIP Negative mg/dL 07/23 Specimen Type: URINE No comment entered. Ordering Provider: MAKENZIE GAY Report Released Date/Time: Jun 25, 2024 10:29 AM Reporting Lab: [facility] [address] [address] Performing Lab: [facility] [address] [address] [facility] URINALYS IS PROTEIN [MASS/VOLU ME] IN URINE BY TEST STRIP 30 mg/dL 07/23 H Specimen Type: URINE No comment entered. Ordering Provider: MAKENZIE GAY Report Released Date/Time: Jun 25, 2024 10:29 AM Reporting Lab: [facility] [address] [address] Performing Lab: [facility] [address] [address] [facility] URINALYS IS PH OF URINE BY TEST STRIP 5.5 4.5 - 8.0 07/23 Specimen Type: URINE No comment entered. Ordering Provider: MAKENZIE GAY Report Released Date/Time: Jun 25, 2024 10:29 AM Reporting Lab: [place] [phone] Performing Lab: [address] URINALYS IS NITRITE [PRESENCE] IN URINE BY TEST STRIP Negative 07/23 Specimen Type: URINE No comment entered. Ordering Provider: MAKENZIE GAY Report Released Date/Time: Jun 25, 2024 10:29 AM Reporting Lab: [place] [address] Performing Lab: [address] URINALYS IS LEUKOCYTE ESTERASE [PRESENCE] IN URINE BY TEST STRIP TRACE 07/23 H Specimen Type: URINE No comment entered. Ordering Provider: MAKENZIE GAY Report Released Date/Time: Jun 25, 2024 10:29 AM Reporting Lab: [place] [phone] Performing Lab: [address] URINALYS IS SPECIFIC GRAVITY OF URINE 1.018 1.005 - 1.030 07/23 Specimen Type: URINE No comment entered. Ordering Provider: MAKENZIE GAY Report Released Date/Time: Jun 25, 2024 10:29 AM Reporting Lab: [place] [phone] Performing Lab: [address] URINALYS IS GLUCOSE [MASS/VOLU ME] IN URINE BY TEST STRIP >1000mg/ dL 07/23 H Specimen Type: URINE No comment entered. Ordering Provider: MAKENZIE GAY Report Released Date/Time: Jun 25, 2024 10:29 AM Reporting Lab: [place] [phone] Performing Lab: [place] [phone] [facility] URINALYS IS LEUKOCYTES [#/AREA] IN URINE SEDIMENT BY AUTOMATED COUNT 2 /[HPF] 0 - 3 07/23 Specimen Type: URINE No comment entered. Ordering Provider: MAKENZIE GAY Report Released Date/Time: Jun 25, 2024 10:29 AM Reporting Lab: [place] [phone] Performing Lab: [place] [phone] [place] [address] URINALYS IS EPITHELIAL CELLS.SQUA MOUS [#/AREA] IN URINE SEDIMENT BY AUTOMATED COUNT 3 /[LPF] 0 - 28 07/23 Specimen Type: URINE No comment entered. Ordering Provider: MAKENZIE GAY Report Released Date/Time: Jun 25, 2024 10:29 AM Reporting Lab: [place] [phone] Performing Lab: [place] [phone] [place] [address] URINALYS IS HYALINE CASTS [#/AREA] IN URINE SEDIMENT BY AUTOMATED COUNT 1 /[LPF] 0 - 2 07/23 Specimen Type: URINE No comment entered. Ordering Provider: MAKENZIE GAY Report Released Date/Time: Jun 25, 2024 10:29 AM Reporting Lab: [place] [phone] Performing Lab: [place] [phone] PTH INTACT ([place]) PARATHYRIN .INTACT [MASS/VOLU ME] [...] Jun 25, 2024 10:29 AM Reporting Lab: [place] [phone] Performing Lab: [place] [phone] [place] [address] 25-OH VITAMIN D 25-HYDROXY VITAMIN D3 [MASS/VOLU [...] Jun 25, 2024 10:29 AM Reporting Lab: [place] [phone] Performing Lab: [place] [phone] CBC/PLT LEUKOCYTES [#/VOLUME] IN BLOOD BY AUTOMATED COUNT 8.2 10*3/uL 5.0 - 10.0 07/23 Specimen Type: BLOOD No comment entered. Ordering Provider: MAKENZIE GAY Report Released Date/Time: Jun 25, 2024 10:29 AM Reporting Lab: [place] [phone] Performing Lab: [place] [phone] [facility] CBC/PLT ERYTHROCYT ES [#/VOLUME] IN BLOOD BY AUTOMATED COUNT 4.81 10*6/uL 4.6 - 6.2 07/23 Specimen Type: BLOOD No comment entered. Ordering Provider: MAKENZIE GAY Report Released Date/Time: Jun 25, 2024 10:29 AM Reporting Lab: [place] [phone] Performing Lab: [place] [id number] [facility] [phone] [facility] CBC/PLT HEMOGLOBIN [MASS/VOLU ME] IN BLOOD 14.7 g/dL 14.0 - 18.0 07/23 Specimen Type: BLOOD No comment entered. Ordering Provider: MAKENZIE GAY Report Released Date/Time: Jun 25, 2024 10:29 AM Reporting Lab: [address] [address] Performing Lab: [address] [address] [facility] CBC/PLT HEMATOCRIT [VOLUME FRACTION] OF BLOOD BY AUTOMATED COUNT 44.4 42.0 - 52.0 07/23 Specimen Type: BLOOD No comment entered. Ordering Provider: MAKENZIE GAY Report Released Date/Time: Jun 25, 2024 10:29 AM Reporting Lab: [place] [phone] Performing Lab: [address] [facility] CBC/PLT MCV [ENTITIC VOLUME] BY AUTOMATED COUNT 92.3 fL 80.0 - 94.0 07/23 Specimen Type: BLOOD No comment entered. Ordering Provider: MAKENZIE GAY Report Released Date/Time: Jun 25, 2024 10:29 AM Reporting Lab: [address] [address] Performing Lab: [address] [address] [facility] CBC/PLT MCH [ENTITIC MASS] BY AUTOMATED COUNT 30.6 pg 27.0 - 31.0 07/23 Specimen Type: BLOOD No comment entered. Ordering Provider: MAKENZIE GAY Report Released Date/Time: Jun 25, 2024 10:29 AM Reporting Lab: [address] [phone] Performing Lab: [address] [facility] CBC/PLT MCHC [MASS/VOLU ME] BY AUTOMATED COUNT 33.1 g/dL 32.0 - 36.0 07/23 Specimen Type: BLOOD No comment entered. Ordering Provider: MAKENZIE GAY Report Released Date/Time: Jun 25, 2024 10:29 AM Reporting Lab: [place] [id number] Performing Lab: [place] [id number] CBC/PLT PLATELETS [#/VOLUME] IN BLOOD 165 10*3/uL 150 - 450 07/23 Specimen Type: BLOOD No comment entered. Ordering Provider: MAKENZIE GAY Report Released Date/Time: Jun 25, 2024 10:29 AM Reporting Lab: [place] [address] Performing Lab: [address] CBC/PLT PLATELET MEAN VOLUME [ENTITIC VOLUME] IN BLOOD 9.6 fL 9.0 - 13.1 07/23 Specimen Type: BLOOD No comment entered. Ordering Provider: MAKENZIE GAY Report Released Date/Time: Jun 25, 2024 10:29 AM Reporting Lab: [place] [address] Performing Lab: [address] CBC/PLT ERYTHROCYT E DISTRIBUTI ON WIDTH [ENTITIC VOLUME] BY AUTOMATED COUNT 15.9 11.0 - 16.0 07/23 Specimen Type: BLOOD No comment entered. Ordering Provider: MAKENZIE GAY Report Released Date/Time: Jun 25, 2024 10:29 AM Reporting Lab: [place] [address] Performing Lab: [address] CBC/PLT NUCLEATED ERYTHROCYT ES/100 ERYTHROCYT ES IN BLOOD 0.0 0.0 - 0.0 07/23 Specimen Type: BLOOD No comment entered. Ordering Provider: MAKENZIE GAY Report Released Date/Time: Jun 25, 2024 10:29 AM Reporting Lab: [facility] [address] [facility] [phone] Performing Lab: [facility] [address] [facility] [address] [facility] MorejonMEG [facility] PANEL 4 CREATININE [MASS/VOLU ME] IN SERUM [...] 2024 10:29 AM Reporting Lab: MICHAEL WEAVER [facility] [address] [facility] [address] Performing Lab: MICHAEL WEAVER [facility] [address] [facility] [address] [facility] PANEL 4 UREA NITROGEN [MASS/VOLU ME] IN [...] Jun 25, 2024 10:29 AM Reporting Lab: [place] [address] [place] [address] Performing Lab: [facility] [address] [facility] [address] [facility] PANEL 4 GLUCOSE [MASS/VOLU ME] IN SERUM [...] 2024 10:29 AM Reporting Lab: MICHAEL WEAVER [facility] [address] [facility] [address] Performing Lab: MICHAEL WEAVER [address] [address] [facility] PANEL 4 SODIUM [MOLES/VOL UME] IN [...] 2024 10:29 AM Reporting Lab: MICHAEL WEAVER [address] [address] Performing Lab: MICHAEL WEAVER [address] [address] [facility] PANEL 4 POTASSIUM [MOLES/VOL UME] IN SERUM [...] 2024 10:29 AM Reporting Lab: MICHAEL WEAVER [address] [address] Performing Lab: MICHAEL WEAVER [address] [address] [facility] PANEL 4 CHLORIDE [MOLES/VOL UME] IN SERUM [...] 2024 10:29 AM Reporting Lab: MICHAEL WEAVER [address] [address] Performing Lab: MICHAEL WEAVER [address] [address] [facility] PANEL 4 CARBON DIOXIDE, TOTAL [MOLES/VOL UME] IN SERUM OR PLASMA 16 mmol/L 22 - 29 07/23 L Specimen Type: PLASMA Comment: Estimated [...] 2024 10:29 AM Reporting Lab: MICHAEL WEAVER [address] [address] Performing Lab: MICHAEL WEAVER [address] [address] [facility] PANEL 4 CALCIUM [MASS/VOLU ME] IN [...] 2024 10:29 AM Reporting Lab: MICHAEL WEAVER [address] [address] Performing Lab: MICHAEL WEAVER [address] [address] [facility] PAN[facility] 4 PHOSPHATE [MASS/VOLU ME] IN SERUM [...] 2024 10:29 AM Reporting Lab: MICHAEL WEAVER [address] [address] Performing Lab: MICHAEL WEAVER [address] [address] SCOOBY MURILLO [facility] PANEL 4 ALBUMIN [MASS/VOLU ME] IN [...] 2024 10:29 AM Reporting Lab: MICHAEL WEAVER [address] [address] Performing Lab: MICHAEL WEAVER [address] [address] SCOOBY MURILLO [facility] PANEL 4 ANION GAP 3 IN [...] 2024 10:29 AM Reporting Lab: MICHAEL WEAVER [address] [address] Performing Lab: MICHAEL WEAVER [address] [address] [facility] PANEL 4 GLOMERULAR FILTRATION RATE/1.73 SQ [...] Jun 25, 2024 10:29 AM Reporting Lab: [place] [phone] Performing Lab: [address] DRUG SCREEN EXPANDED IN-HOUSE TETRAHYDRO CANNABINOL [PRESENCE] [...] Jun 16, 2024 10:42 AM Reporting Lab: [place] [phone] Performing Lab: [place] [id number] DRUG SCREEN EXPANDED IN-HOUSE AMPHETAMIN ES [PRESENCE] [...] Jun 16, 2024 10:42 AM Reporting Lab: [place] [address] Performing Lab: [address] DRUG SCREEN EXPANDED IN-HOUSE BARBITURAT ES [PRESENCE] [...] Jun 16, 2024 10:42 AM Reporting Lab: [place] [address] Performing Lab: [address] DRUG SCREEN EXPANDED IN-HOUSE BENZODIAZE PINES [PRESENCE] [...] Jun 16, 2024 10:42 AM Reporting Lab: [place] [phone] Performing Lab: [address] [phone] [place] [address] DRUG SCREEN EXPANDED IN-HOUSE BENZOYLECG ONINE [PRESENCE] [...] Jun 16, 2024 10:42 AM Reporting Lab: [address] [address] Performing Lab: [place] [phone] [place] [address] DRUG SCREEN EXPANDED IN-HOUSE OPIATES [PRESENCE] IN [...] Jun 16, 2024 10:42 AM Reporting Lab: [address] [address] Performing Lab: [address] [address] [facility] DRUG SCREEN EXPANDED IN-HOUSE METHADONE [...] Jun 16, 2024 10:42 AM Reporting Lab: [address] [address] Performing Lab: [address] [address] [facility] DRUG SCREEN EXPANDED IN-HOUSE OXYCODONE [...] Jun 16, 2024 10:42 AM Reporting Lab: [address] [address] Performing Lab: [place] [phone] [place] [address] DRUG SCREEN EXPANDED IN-HOUSE BUPRENORPH INE+NORBUP RENORPHINE [...] Jun 16, 2024 10:42 AM Reporting Lab: [place] [phone] Performing Lab: [place] [phone] [place] [address] DRUG SCREEN EXPANDED IN-HOUSE FENTANYL SCREEN IN-HOUSE [...] Jun 16, 2024 10:42 AM Reporting Lab: [address] [address] Performing Lab: [address] [address] [facility] PHOSPHOR US PHOSPHATE [MASS/VOLU ME] IN SERUM OR PLASMA 5.1 mg/dL 2.3 - 4.7 05/17 H Specimen Type: PLASMA No comment entered. Ordering Provider: FAHAD BLOCK Report Released Date/Time: May 10, 2024 10:41 PM Reporting Lab: [address] [address] Performing Lab: [phone] [place] [address] IONIZED CALCIUM CALCIUM.IO NIZED [MOLES/VOL UME] IN BLOOD 1.22 mmol/L 1.15 - 1.29 05/17 Specimen Type: BLOOD No comment entered. Ordering Provider: FAHAD BLOCK Report Released Date/Time: May 10, 2024 10:41 PM Reporting Lab: [address] [address] Performing Lab: [phone] [place] [address] PTH INTACT ([place]) PARATHYRIN .INTACT [MASS/VOLU ME] [...] May 10, 2024 10:41 PM Reporting Lab: [address] [address] Performing Lab: [address] [address] [facility] MICROALB UMIN/CRE AT RATIO CREATININE [MASS/VOLU ME] IN URINE 77.4 mg/dL 05/10 Specimen Type: URINE No comment entered. Ordering Provider: FAHAD BLOCK Report Released Date/Time: May 10, 2024 08:34 AM Reporting Lab: [address] [address] Performing Lab: [phone] [place] [address] MICROALB UMIN/CRE AT RATIO MICROALBUM IN [MASS/VOLU ME] IN URINE 370.8 mg/L 0.0 - 30.0 05/10 H Specimen Type: URINE No comment entered. Ordering Provider: FAHAD BLOCK Report Released Date/Time: May 10, 2024 08:34 AM Reporting Lab: [address] [address] Performing Lab: [place] [phone] [facility] MICROALB UMIN/CRE AT RATIO MICROALBUM IN/CREATIN INE [MASS RATIO] IN URINE 479.1 ug/mg{cr eat} 05/10 Specimen Type: URINE No comment entered. Ordering Provider: FAHAD BLOCK Report Released Date/Time: May 10, 2024 08:34 AM Reporting Lab: [address] [address] Performing Lab: [place] [phone] [facility] Vital Signs Combined list of inpatient and outpatient Vital Signs from Department of Defense and Veterans Affairs, ranging from 12 months to all on record, depending upon the facility. Vital Sign Value Date Comments Source SYSTOLIC BLOOD PRESSURE 118 07/23/2024 13:10:00 [facility] DIASTOLIC BLOOD PRESSURE 64 07/23/2024 13:10:00 [facility] PULSE OXIMETRY 97 07/23/2024 13:10:00 [place] [facility] WEIGHT 206.8 07/23/2024 13:10:00 [place] [facility] BMI 29 kg/m2 07/23/2024 13:10:00 [place] [facility] PAIN 8 07/23/2024 13:10:00 [place] [facility] TEMPERATURE 97.7 07/23/2024 13:10:00 [place] [facility] PULSE 85 07/23/2024 13:10:00 [place] [facility] SYSTOLIC BLOOD PRESSURE 132 05/10/2024 07[facility]54:[facility]IA[facility] 75 05/10/2024 07:54:04 [place] [facility] PULSE OXIMETRY 99 05/10/2024 07:54:04 [place] [facility] WEIGHT 203 05/10/2024 07:54:04 [place] [facility] BMI 28 kg/m2 05/10/2024 07:54:04 [place] [facility] PAIN 0 05/10/2024 07:54:04 [place] [facility] HEIGHT 71 05/10/2024 07:54:04 [place] [facility] TEMPERATURE 98.1 05/10/2024 07:54:04 [place] [facility] PULSE 99 05/10/2024 07:54:04 [place] [facility] Encounters Combined list of: 1) Encounters from Department of Veterans Affairs facilities going backup to the last 18 months, not all [place] inpatient encounters are included; 2) Encounters from the Department of Defense facilities going backup to 280 months. Location Location Details Encounter Type Encounter Number Reason For Visit Attending Provider ADM Date DC Date Status Disposition Source [facility] ELECTROCAR DIOGRAM COMPLETE [id number] Diagnos is: ICD-10- CM I10 Essenti al (primar y) hyperte nsAMITA Atkins IG A 07/24 [place] [facility]/OP EST MAY X REQ PHY/QHP [id number] Diagnos is: ICD-10- CM Z71.89 Other specifi ed hiv counselor GAURANG Irizarry 07/24 [place] OFFICE O/P EST MOD 30 MIN [id number] Diagnos is: ICD-10- CM Z01.818 Encount er for other preproc edural examina MAKENZIE Franco 07/24 [place] PRO PHONE CALL 5-10 MIN [id number] Diagnos is: ICD-10- CM H25.11 Age-rel ated nuclear catarac t, right eye ALIN MULLEN 08/08 [place] [facility] Outpatient Encounter [id number] Diagnos is: ICD-10- CM H25.11 Age-rel ated nuclear catarac t, right eye MIKAELA HAM 08/10 [place] Outpatient Encounter [id number] NALDO ANGEL 08/10 [place] Outpatient Encounter [id number] CHANDA CROCKETT MA 08/10 [place] [facility] X[facility]SL CTRC RMVL W/O ECP [id number] TREVER THOMPSON 08/10 [place] [facility] SIGNAL TOWER DIRECTOR 1ST [employer] INDIVIDU [id number] Diagnos is: ICD-10- CM Z71.81 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 religio us hiv counselor NURYS Ham 08/10 [place] En[facility] [id number] NALDO ANGEL B 08/10 [place] [facility] POSTOP FOLLOW-UP VISIT [id number] Diagnos is: ICD-10- CM Z48.810 Encntr for surgica l aftcr fol surgery on the sense organs INDER DE LOMELI,A NA 08/11 [place] [facility] INTRM OPH EXAM EST PATIENT [id number] Diagnos is: ICD-10- CM Z48.810 Encntr for surgica l aftcr fol surgery on the sense organs LESLIE JOHNS A R 08/17 [place] [facility] Outpatient Encounter [id number] 08/18 [place] HC PRO PHONE CALL 5-10 MIN [id number] Diagnos is: ICD-10- CM R05.9 Cough, unspeci fied NICHOLEWANG NNAH R 08/18 [place] [facility] Outpatient Encounter [id number] SUZY MANZANARES RLENE H 08/21 [place] [facility] Outpatient Encounter [id number] SUZY MANZANARES RLENE H 08/21 [place] [facility] POSTOP FOLLOW-UP VISIT [id number] Diagnos is: ICD-10- CM Z98.41 Catarac t extract ion status, right eye BEE,ER IC B 09/10 [place] HC PRO PHONE CALL 5-10 MIN [id number] Diagnos is: ICD-10- CM H25.12 Age-rel ated nuclear catarac t, left eye ALIN MULLEN M 10/03 [place] [facility] Outpatient Encounter [id number] Diagnos is: ICD-10- CM H25.12 Age-rel ated nuclear catarac t, left eye STORM POTTER L 10/04 [place] [facility] SIGNAL TOWER DIRECTOR [employer] IN[employer]U [id number] Diagnos is: ICD-10- CM Z71.81 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 religio us hiv counselor KEERTHI Romero L 10/04 [place] Outpatient Encounter [id number] 10/04 [place] [facility] Outpatient Encounter [id number] NAHOMI,NIKKI HER A 10/04 [place] [facility] Outpatient Encounter [id number] CHANDA CROCKETT MA 10/04 [place] [facility] XCAPSL CTRC RMVL W/O ECP [id number] MARIAJOSE PHOENIX M 10/04 [place] [facility] Outpatient Encounter [id number] NAHOMINIKKI HER A 10/04 [place] Out[facility] Encounter [id number] NAHOMI,NIKKI HER A 10/04 [place] [facility] POSTOP FOLLOW-UP VISIT [id number] Diagnos is: ICD-10- CM Z48.810 Encntr for surgica l aftcr fol surgery on the sense organs COLBY GAMBOA B 10/05 [place] [facility] POSTOP FOLLOW-UP VISIT [id number] Diagnos is: ICD-10- CM Z48.810 Encntr for surgica l aftcr fol surgery on the sense organs LESLIE JOHNS R 10/10 [place] Outpatient Encounter [id number] 10/29 [place] [facility] POSTOP FOLLOW-UP VISIT [id number] Diagnos is: ICD-10- CM Z98.42 Catarac t extract ion status, left eye LESLIE JOHNS R 11/07 [place] [facility] OFFICE O/P EST LOW 20 MIN [id number] Diagnos is: ICD-10- CM H04.123 Dry eye syndrom e of bilater al lacrima l glands ANDREA,JJ L 12/11 [place] [facility] [id number] 12/18 [place] [facility] Outpatient Encounter [id number] 12/18 [place] [facility] Outpatient Encounter [id number] 12/31 [place] [facility] En[facility] [id number] 01/22 [place] [facility] Outpatient Encounter [id number] 01/22 [place] 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 LARRY,AND REW L 04/15 [place] [facility] Outpatient Encounter [id number] 04/16 [place] [facility] Outpatient Encounter [id number] 05/04 [place] [facility] Outpatient Encounter [id number] 05/08 [place] [facility] Outpatient Encounter [id number] 05/08 [place] [facility] Outpatient Encounter [id number] 05/08 [place] [facility] Outpatient Encounter [id number] 05/09 [place] [facility] OFFICE O/P EST MOD 30 MIN [id number] Diagnos is: ICD-10- CM M54.59 Other low back pain ISAIAS BLOCK A 05/10 [place] [facility] HC PRO PHONE CALL 5-10 MIN [id number] Diagnos is: ICD-10- CM E11.8 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 MCLEAN,L QUYNH G 05/14 [place] [facility] Outpatient Encounter [id number] 05/14 [place] [facility] HC PRO PHONE CALL 5-10 MIN [id number] Diagnos is: ICD-10- CM R79.9 Abnorma l finding of blood physical chemist ry, unspeci fied MCLEAN,L QUYNH G 05/28 [place] [facility] Outpatient Encounter [id number] 06/14 [place] [facility] Outpatient Encounter [id number] 06/16 [place] [facility] HC PRO PHONE CALL 5-10 MIN [id number] Diagnos is: ICD-10- CM M54.59 Other low back pain DENISE POTTER 06/20 [place] [facility] OFFICE O/P EST MOD 30 MIN [id number] Diagnos is: ICD-10- CM 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 MARIETTA Hilton 07/23 [place] [facility] CASE MANAGEMENT [id number] Diagnos is: ICD-10- CM N18.32 Chronic kidney disease , stage 3b TISHA LEMUS 07/31 [place] [facility] Outpatient Encounter [id number] 08/06 [place] [facility] Outpatient Encounter [id number] 08/06 [place] [facility] Outpatient Encounter [id number] 09/03 [place] [facility] Outpatient Encounter [id number] 12/04 [place] [facility] Outpatient Encounter [id number] 12/05 [place] [facility] OFFICE O/P EST MOD 30 MIN [id number] Diagnos is: ICD-10- CM E11.9 Type 2 diabete s mellitu s without complic ations JJ MENDEZ 12/10 [place] [facility] Procedures Combined list of: 1) Procedures from Department of Veterans Affairs facilities [facility], not all VA non-surgical procedures are included; 2) All procedures from the Department of [facility] facilities. Procedure Procedure Type Code Date Perfomer Comments [facility] e LEFT EYE EXTRACAPSULAR CATARACT EXTRACTION WITH POSTERIOR CHAMBER INTRAOCULAR LENS IMPLANT XCAPSL CTRC RMVL W/O ECP 61727 4 [facility] RIGHT EYE EXTRACAPSULAR CATARACT EXTRACTION WITH POSTERIOR CHAMBER INTRAOCULAR LENS IMPLANT XCAPSL CTRC RMVL W/O ECP 42806 4 TREVER THOMPSON Other Procedure CPT Code(s): RT-RIGHT SIDE, GR[facility] Social History Combined list of available smoking, tobacco, and other social history from Department of Defense and Veterans Affairs facilities. Social History Type Response Date Comment Source Tobacco smoking status NHIS VA-TOBACCO USER EVERY DAY 05/10/2024 [facility] History of tobacco use VA-TOBACCO USE 30 YEARS OR MORE 05/10/2024 [facility] History of tobacco use VA-TOBACCO USE [place] 30 MIN OF WAKEUP 06/02/2023 [facility] History of tobacco use [place]-TOBACCO USE [place] 30 MIN OF WAKEUP 06/29/2022 [facility] [place] 30 MIN OF WAKEUP 08/07/2020 [facility] NO 12/31/2018 [facility] History of tobacco use V9 CURRENT TOBACCO USER 01/08/2018 [facility] History of tobacco use V9 LIFETIME NON-USER OF TOBACCO 12/15/2016 [facility] History of tobacco use V9 CURRENT TOBACCO USER 09/07/2015 [facility] History of tobacco use V9 CURRENT TOBACCO USER 11/27/2014 [facility] History of tobacco use V9 CURRENT TOBACCO USER 10/16/2013 [facility] History of tobacco use V9 CURRENT TOBACCO USER 06/13/2012 [facility] History of tobacco use V9 CURRENT TOBACCO USER 04/06/2011 [facility] History of tobacco use V9 CURRENT TOBACCO USER 01/06/2010 [facility] History of tobacco use V9 CURRENT TOBACCO USER 12/02/2008 [facility] History of tobacco use V9 CURRENT TOBACCO USER 09/05/2007 [facility] History of tobacco use V9 CURRENT TOBACCO USER 08/10/2006 [facility] History of tobacco use HF V9 SECOND TOBACCO 1ST PRESSMAN 02/22/2006 occ. [facility] History of tobacco use HF V9 CURRENT SMOKER 08/16/2005 SMOKES UP TO 2 PACKS/WK [facility] History of tobacco use HF V9 CURRENT NON-SMOKER 08/09/2004 about a week ago [facility] History of tobacco use HF V9 CURRENT NON-SMOKER 07/02/2003 7yrs ago [facility] History of tobacco use HF V9 CURRENT NON-SMOKER 04/26/2002 quit about 5 yrs ago. [facility] Advance Directives List of completed, amended, or rescinded Advance Directives on record at Department of [facility] facilities. An actual copy of the Directive is not included. Date Advance Directive Provider Source 10/17/2011 ADVANCE DIRECTIVE DISCUSSION AMY VÁSQUEZ [facility] 08/11/2010 ADVANCE DIRECTIVE DISCUSSION AMY VÁSQUEZ [facility] 06/04/2009 ADVANCE DIRECTIVE DISCUSSION AMY [facility]
--- OUTSIDE RECORDS SUMMARY | 2025-01-06 10:17 | XMS_ITS | Clinical Summary ---
Author Organization [facility] Address [address] [place] [id number] Phone Care Team Providers Care Rn Chronic Name Role Phone Nathan WING, [place] [ ] Conditions or Problems Problem Name Problem Code Onset Date Status Entry Date Provider Comment Standard Description Annotate Nicotine dependence, cigarettes F17.210 (ICD-10-CM ) 12/13 Active 12/13 Dina Manuel Nicotine dependence, cigarettes, uncomplicated Abscess, groin 00559671 (SNOMED CT) 12/13 Active 12/13 Dina Manuel Abscess of groin Cellulitis, groin 92202923 (SNOMED CT) 12/13 Active 12/13 Dina Manuel Cellulitis of groin Cellulitis/ab scess, scrotal 74388797 (SNOMED CT) 12/13 Active 12/13 Dina Manuel Cellulitis of scrotum Coag neg staph infection B95.7 (ICD-10-CM ) 12/13 Active 12/13 Dina Manuel Other staphylococcus as the cause of diseases classified elsewhere Enterococcus infection 318391940 (SNOMED CT) 12/13 Active 12/13 Dina Manuel Infection caused by Enterococcus E. coli infection, non-shiga toxing-produc ing B96.29 (ICD-10-CM ) 12/13 Active 12/13 Dina Manuel Other Escherichia coli [E. 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 172371924 (SNOMED CT) 12/13 Active 12/13 Dina Jackson Peripheral vascular disease DM II with diabetic PVD 289652045 (SNOMED CT) 12/13 Active 12/13 Dina Jackson Peripheral vascular disease Benign Essential Hypertension 8666970 (SNOMED CT) 12/13 Active 12/13 Dina Jackson Benign essential hypertension Medications Medication Instructions Start Date Stop Date Generic Name NDC Provider NIACIN 500 MG TABS pobid qhn 5 NIACIN 41504052603 Marta Ferris MIRALAX ORAL PACKET 1 dose popid 5 POLYETHYLENE GLYCOL 3350 71392545607 Marta JAMES NATURAL FISH OIL 1000 MG CAPS 2 capsules pobid 5 OMEGA-3 FATTY ACIDS 97500277804 Marta Ferris NITROSTAT 0.4 MG SUBL as instructed 9 NITROGLYCERIN 12283792184 Marta Ferris ZANTAC 150 MG ORAL TABLET 1 tab every morning 9 RANITIDINE HCL 81920144850 Marta Ferris CRESTOR 10 MG TABS 1 tab every night 9 ROSUVASTATIN CALCIUM 46880947884 Lizzie Velázquez ZANTAC 150 MG ORAL TABLET 1 tab every morning 9 RANITIDINE HCL 72643456102 Lizzie Velázquez EFFIENT 10 MG TABS 1 tab every morning 9 PRASUGREL HCL 29248738623 Lizzie Velázquez NITROSTAT 0.4 MG SUBL as instructed 9 NITROGLYCERIN 99320758204 Lizzie Velázquez CENTRUM SILVER TABS 1 tab daily 9 MULTIPLE VITAMINS-MINERAL S 55846453345 Lizzie Velázquez NORCO 7.5-325 MG ORAL TABLET 1 tab every 6 hours as needed for moderate pain 9 HYDROCODONE-ACET AMINOPHEN 72212797919 Lizzie Velázquez GLIPIZIDE 5 MG TABS daily 9 GLIPIZIDE 87355221619 Lizzie Velázquez COREG 12.5 MG TABS 1 tab every 12 hours 9 CARVEDILOL 57777067753 Lizzie Velázquez ADULT ASPIRIN EC LOW STRENGTH 81 MG ORAL TABLET DELAYED RELEASE 1 tab daily 9 ASPIRIN 13246256834 Lizzie Velázquez AMLODIPINE BESYLATE 10 MG TABS 1 tab daily 9 AMLODIPINE BESYLATE 04833789565 Lizzie Velázquez Medications Administered No information available. 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 PAT E-MAIL [email or web address] patient's e-mail address External Other: Patient selma rivas update - EmailStatus, [facility] ... 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
--- OUTSIDE RECORDS SUMMARY | 2025-01-06 10:18 | XMS_ITS | Clinical Summary ---
Author Organization [facility] Address [address] [place] [address] Care Team Providers Care Taper Operator Name Role Phone Markus Ramirez MD Primary Care Provider [phone] Social History Tobacco Use Types Packs/Day Years [...] or (1 - 1-dose 75+ series) 12/02/2011 [id number] Vaccine (3 - 2023- season) 2024 06/29/2022, 03/10/2021 UKY-Influenza Vaccine (#1) 02/24/202505/04, 03/19/2021 [facility]Y-DTaP,Tdap,and Td Vaccines (2 - Td or Tdap) 09/09/2030 09/09/2020 HPV Vaccines Aged Out No longer eligi [...] patient's age to complete this topic Insurance [place] [address] MEDICARE Member Subscriber Plan / Payer (Ef fective 2001-Present) Name:Kory Ny Member ID:[id number] Relation to Subscriber:Self Name:Kory Ny Subscriber ID:[id number] Payer ID:MEDICARE Group ID:Not on file Type:Medicare Address: [address] Care Teams Taper Operator Relationship Specialty Start Date End Date Markus Ramirez MD [address] [place] [address] PCP - General Internal Medicine 08/21/24
--- OUTSIDE RECORDS SUMMARY | 2025-01-06 10:18 | XMS_ITS | Encounter Summary ---
Author Organization [facility] Address [address] [place] [address] Care Team Providers Care Silk Screen Etcher Name Role Phone Markus Ramirez MD Primary Care Provider [phone] Reason for Referral * Consultation (Routine) - Authorized Specialty Diagnoses / Procedures Referred By Contac t Referred To Contact Nephrology Diagnoses Nonspecific abnormal results of kidney function study Hypercalcemia Markus Ramirez MD [address] [place] [address] Phone: tel: fax: [facility] [address] [place] [address] Phone: tel: fax: Referral ID Status Reason Start Date Expiration Date Visits Requested Visits Authorized [id number] Authorized Specialty Services Required 08/19/2024 02/18/2026 1 1 Encounter Details Date Type Department Care Team (Late st Contact Info) Description 08/19/2024 Community [facility] [address] [place] [address] Markus Ramirez MD [address] [place] [address] Nonspecific abnormal results of kidney function study [...] Hypercalcemia documented in this encounter Care Teams Silk Screen Etcher Relationship Specialty Start Date End Date Markus Ramirez MD [address] [place] [address] PCP - General Internal Medicine 08/21/24 documented as of this encounter
--- OUTSIDE RECORDS SUMMARY | 2025-01-06 10:18 | XMS_ITS | Data Portability ---
Author Organization [facility] Address [address] [place] [address] Assessment No assessment recorded. Plan of Treatment Reminders Order Date Submit Date Provider Last Modified By Organization Details Last Modified Time Details Appointments None recorded. Lab None recorded. Referral None recorded. Procedures None recorded. Surgeries None recorded. Imaging None recorded. Medication Orders cephalexin 500 mg capsule 2021 022 [facility], [address] [place] [address], [place] [id number], 17:21:18 Patient TargetsNo targets recorded. Patient Instructions Encounter Date Encounter Id Patient Instructions Last Modified By Organization Details Last Modified Time 03/30/2022 [id number] Path pending at time of suture removal. Will call with those results and follow up. [facility] Not available 04/05/2022 12:13:39 Reason for Referral None Reported. Results Created Date Observation Date Name Description Value Unit Range Abnormal Flag Note LastModifiedBy Organization Detail LastModifiedTime Result Notes None recorded. Problems Name Problem SNOMED Code Status Onset Date Resolution Date Notes Provider Name and Address Organization Details Recorded Time Lesion of skin of left ear 95865108512299030 Active Nereida Garcia priya, [facility] & [place] 16:17:53 Problem Notes None recorded. Procedures Surgical History Date Name Laterality Status Provider Name and Address Organization Details Recorded Time 03/22/20 22 Excision of lesion with (simple, intermediate layered, complex layered) closure completed Svetlana Hinojosa MD [address], [place], [address], [facility] & [place] 03/25/2022 10:17:01 Imaging Results None recorded. Procedure Notes None recorded. Medical Equipment None Reported. Allergies Allergen ID Allergen Name Allergen Category Reaction Reaction Severity Criticality Documentation Date Start Date Code Code System Note Provider Name and Address Organization Details Recorded Time 6973 lisinopri l medicatio n Not available Not available Not available 03/04/2022 62113 RxNorm DEMETRIO Smith [facility] & [place] 2 16:17:52 6974 atorvasta tin medicatio n Not available Not available Not available 03/04/2022 98711 RxNorm [facility] [place] 2 16:17:52 Medications Name Sig Start Date Stop [...] SNOMED-CT Code Diagnosis ICD10 Code Diagnosis Note [id number] Svetlana Hinojosa MD [facility] [place] [address] 03/22/2022 15:44:22 03/22/2022 17:08:02 Open wound of external ear 909081897 S01.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 Basal cell carcinoma of ear 872787669 C44.219 [id number] Svetlana Hinojosa MD [facility] [place] [address] 03/30/2022 08:25:37 03/30/2022 09:13:30 Lesion of skin of left ear 0166409123 2456757 H93.8X2 96459 Svetlana Hinojosa MD [facility] [place] [address] 04/05/2022 12:47:05 04/05/2022 12:58:57 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 Lesion of skin of left ear 8860832710 0775853 H93.8X2 I discussed the pathology with patient [...] [place] [id number] Kory Ny [id number] Kory [place] 04/23/2022 2 [place] [id number] Kory Ny [id number] Kory Ny 03/04/2022 1 [place] Kory Ny [id number] Kory Ny 03/29/2022 1 [place] Kory Ny [id number] Kory Ny Notes Date Note Type Note Provider Name and Address Organization Details Recorded Time 03/30/2022 text/html Patient returns to the office today for suture removal. Svetlana Hinojosa MD [address] [place], [address], [facility] 04/05/2022 12:13:52 04/05/2022 text/html Patient returns to [...] dry dressings. Svetlana Hinojosa MD [address] [place], [address], [facility] 04/06/2022 10:58:32
[2025-01-06 10:19] LABS: Microscopic, Urine URINE MICROSCOPIC (MICROSCOPIC)
[2025-01-06 10:57] LABS: Bilirubin,Urine Negative (Negative); Color,Urine YELLOW (Yellow); Glucose,Urine (UA) 3+ (Negative); Ketones,Urine Negative (Negative); Leukocyte Esterase,Urine Negative (Negative); PH,Urine 6.0 (5.0-8.5); Protein,Urine TRACE (Negative); Specific Gravity, Urine 1.015 (1.005-1.030); Urobilinogen,Urine 0.2 EU/dl (0.2)
[2025-01-06 11:03] LABS: Bacteria,Urine Trace /lpf; Squamous Epithelial Cell,Urine Occasional #/hpf (0-5)
[2025-01-06 11:10] LABS: Hemoglobin A1C 7.4 % (4.0-6.0)
[2025-01-06 11:15] LABS: Albumin Level 5.4 g/dl (3.5-5.0); Anion Gap 21.8 mEq/L (5-15); Blood Urea Nitrogen 38 mg/dl (9-20); Calcium 10.2 mg/dl (8.4-10.2); Carbon Dioxide 19 mmol/L (22.0-30.0); Chloride 108 mmol/L (98-107); Creatinine,Serum 2.90 mg/dl (0.66-1.25); Estimated Glomerular Filt Rate 21 ml/min (>60); GFR (African American) 25 ML/MIN (>60); Glucose 105 mg/dl (74-100); Phosphorous 4.3 mg/dl (2.5-4.5); Potassium 5.8 mmoL/L (3.5-5.1); Sodium 143 mmol/L (136-145); Uric Acid 6.6 mg/dl (3.5-8.5)
[2025-01-10 19:30] LABS: 1,25 Dihydroxy Vitamin D 23 pg/mL (.); 1,25-Dihydroxy, Vitamin D-2 <10 pg/mL (.); 1,25-Dihydroxy, Vitamin D-3 23 pg/mL (.)
== END 2025-01-06 23:59 | disposition home or self-care (01) ==
LOC: LAB 10:15
PROVIDERS: PCP Internal Medicine Adolescent Medicine; Visit Provider Internal Medicine Nephrology
DX: N18.30 Chronic kidney disease, stage 3 unspecified (principal); E11.9 Type 2 diabetes mellitus without complications
CPT/HCPCS: 36415; 80069; 81001; 82570; 82652; 83036; 83970; 84156; 84550

== ENCOUNTER 2025-02-04 10:04 | Outpatient (CLI) | payer MEDICARE, BC, SELFPAY ==
--- OUTSIDE RECORDS SUMMARY | 2025-02-04 05:06 | XMS_ITS | Continuity of Care Document ---
Author Name [facility] Organization [facility] Care Team Providers Care Associate Professor Of Literature Name Role Phone [facility] Unavailable Unavailable Problems Combined list of problems from Department of Defense and Veterans Affairs facilities. It does not include entries that were removed or entered in error. 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, 2002 Entered By: Janes VÁSQUEZ Comment: 4.5CM2 02/25 [place] [facility] Chronic ischemic heart disease Active Condition [place] Chronic kidney disease (SNOMED CT 501154278) Active Condition [place] [facility] Chronic obstructive lung disease Active Condition [place] Coronary arteriosclerosis Active Condition [place] [facility] Coronary artery disease Active Condition [place] [facility] Degeneration of cervical intervertebral disc (SNOMED CT 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) Active Condition [place] Diabetes mellitus Active Condition [place] Gastroesophageal reflux disease Active Condition [place] [facility] Hearing loss (SNOMED CT 28264280) Active Condition [place] [facility] Hyperlipidemia Active Condition [place] [facility] Hypertension (SNOMED CT 73750507) Active Condition [place] [facility] Internal hemorrhoids without mention of complication (ICD-9-CM 455.0) Active Condition [place] Low back pain Active Condition [place] Osteoarthritis Active Condition [place] [facility] Other and unspecified hyperlipidemia Active Condition [place] [facility] Peripheral Vascular Disease Active Condition [place] [facility] Personal History of Colonic Polyps (ICD-9-CM V12.72) Active Condition [place] [facility] Tobacco use (SNOMED CT 959701840) Active Condition [place] [facility] Type 2 diabetes mellitus (SNOMED CT 99789904) Active Condition [place] [facility] Diagnosis: ICD-10-CM E11.9 Type 2 diabetes mellitus without complications Active Diagnosis [facility] Diagnosis: ICD-10-CM N18.32 Chronic kidney disease, stage 3b Active Diagnosis [facility] Diagnosis: ICD-10-CM 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 [facility] Diagnosis: ICD-10-CM M54.59 Other low back pain Active Diagnosis [facility] Diagnosis: ICD-10-CM R79.9 Abnormal finding of blood chemistry, unspecified Active Diagnosis [facility] Diagnosis: ICD-10-CM E11.8 Type 2 diabetes mellitus with unspecified complications Active Diagnosis [facility] Diagnosis: ICD-10-CM 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 Diagnosis [facility] Diagnosis: ICD-10-CM H04.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 Active Diagnosis [facility] Diagnosis: ICD-10-CM Z98.42 Cataract extraction status, left eye Active Diagnosis [facility] Diagnosis: ICD-10-CM Z48.810 Encntr for surgical aftcr fol surgery on the sense organs Active Diagnosis [facility] Diagnosis: ICD-10-CM Z71.81 Spiritual or yarsani counseling Active Diagnosis [facility] Diagnosis: ICD-10-CM H25.12 Age-related nuclear cataract, left eye Active Diagnosis [facility] Diagnosis: ICD-10-CM Z98.41 Cataract extraction status, right eye Active Diagnosis [facility] Diagnosis: ICD-10-CM R05.9 Cough, unspecified Active Diagnosis [facility] Diagnosis: ICD-10-CM H25.11 Age-related nuclear cataract, right eye Active Diagnosis [facility] Medications Combined list of outpatient medications from Department of Defense and [facility] Affairs facilities.Medications provided include 1) outpatient medications from the last 15 months, and 2) patient-reported medications. Medication Details Route Status Patient Instructions Prescription Expires Prescription Number Last Dispense Date Ordering Provider Order Date Order Qty Source AMLODIPINE BESYLATE 10MG TAB TAKE ONE TABLET BY MOUTH DAILY FOR BLOOD PRESSURE /HEART - DO NOT DRINK GRAPEFRU IT JUICE WHILE ON THIS DRUG ORAL ACTIVE 04/06/2025 [id number] 5 KOKARENKIT TA 2024 90 [place] [facility] [place] AMLODIPINE BESYLATE 10MG TAB TAKE ONE TABLET BY MOUTH DAILY FOR BLOOD PRESSURE /HEART - DO NOT DRINK GRAPEFRU IT JUICE WHILE ON THIS DRUG ORAL DISCONT INUED 01/19/2025 [id number] 5 MCKAYLAKIT TA 2024 90 [place] [facility] [place] AMLODIPINE BESYLATE 10MG TAB TAKE ONE TABLET BY MOUTH DAILY FOR BLOOD PRESSURE /HEART - DO NOT DRINK GRAPEFRU IT JUICE WHILE ON THIS DRUG ORAL DISCONT INUED 08/08/2024 [id number] 5 KOKARENKIT TA 2024 90 [place] [facility] [place] AMLODIPINE BESYLATE 10MG TAB TAKE ONE TABLET BY MOUTH DAILY FOR BLOOD PRESSURE /HEART - DO NOT DRINK GRAPEFRU IT JUICE WHILE ON THIS DRUG ORAL DISCONT INUED 07/14/2024 [id number] 4 DAGO POTTER IN C 2023 90 [place] [facility] [place] AMLODIPINE BESYLATE 10MG TAB TAKE ONE TABLET BY MOUTH DAILY FOR BLOOD PRESSURE /HEART - DO NOT DRINK GRAPEFRU IT JUICE WHILE ON THIS DRUG ORAL DISCONT INUED 04/15/2024 [id number] 4 DAGO POTTER IN C 2023 90 [place] [facility] [place] ASCORBIC ACID 500MG TAB TAKE TWO TABLETS BY MOUTH DAILY ORAL ACTIVE MILLER VÁSQUEZ W 2007 [place] ASPIRIN 81MG TAB,EC TAKE ONE TABLET BY MOUTH QD ORAL ACTIVE MILLER VÁSQUEZ W 2007 [place] CARVEDILOL 25MG TAB TAKE ONE-HALF TABLET BY MOUTH TWICE A DAY FOR HEART ORAL ACTIVE 12/24/2025 [id number] 5 MARIETTA FINNEGAN 2024 90 [place] [facility] CARVEDILOL 25MG TAB TAKE ONE-HALF TABLET BY MOUTH TWICE A DAY FOR HEART ORAL DISCONT INUED 10/16/2024 [id number] 5 MARIETTA FINNEGAN R 2023 90 [place] [facility] [place] CHOLECALCIF GHADA 25MCG (1,000UNIT) TAB TAKE ONE TABLET BY MOUTH DAILY FOR VITAMIN D SUPPLEME NT ORAL ACTIVE 10/22/2025 [id number] 5 MARIETTA FINNEGAN R 2024 100 [place] [facility] [place] CHOLECALCIF GHADA 25MCG (1,000UNIT) TAB TAKE ONE TABLET BY MOUTH DAILY FOR VITAMIN D SUPPLEME NT ORAL DISCONT INUED 10/16/2024 [id number] 5 MARI[place]TA FINNEGAN R 2023 100 [place] [facility] [place] DEXTRAN 70/GLYCERIN 0.2%/HYPROM ELLOSE 0.3% SOLN,OPH PUT 1 DROP IN BOTH EYES THREE TIMES A DAY FOR DRY EYES OPHTHA LMIC ACTIVE 12/11/2025 [id number] 5 DMITRY MENDEZ 2024 15 [place] [facility] [place] DEXTRAN 70/GLYCERIN 0.2%/HYPROM ELLOSE 0.3% SOLN,OPH PUT 1 DROP IN BOTH EYES TWICE A DAY FOR DRY EYES OPHTHA LMIC 05/02/2024 [id number] 4 SOURAV PEDRO 2022 30 [place] [facility] [place] EMPAGLIFLOZ IN 25MG TAB TAKE ONE TABLET BY MOUTH EVERY MORNING FOR BLOOD SUGAR ORAL ACTIVE 12/14/2025 [id number] 5 MCKAYLAKIT TA 2024 90 [place] [facility] [place] EMPAGLIFLOZ IN 25MG TAB TAKE ONE TABLET BY MOUTH EVERY MORNING FOR BLOOD SUGAR ORAL DISCONT INUED 12/30/2024 [id number] 5 KOUSA,KIT TA 2023 90 [place] [facility] [place] FISH OIL 1000MG (500MG DHA/EPA) CAP,ORAL TAKE 2 CAPSULES BY MOUTH TWICE A DAY ORAL ACTIVE DAGO POTTER 2018 [place] [facility] [place] FLUTICASONE 250MCG/SALM ETEROL 50MCG INHL,ORAL,D ISKUS,60 INHALE 1 INHALATI ON BY MOUTH TWICE A DAY FOR BREATHIN G -RINSE MOUTH AND SPIT AFTER EACH USE RESPIR ATORY (INHAL ATION) DISCONT INUED 08/23/2024 [id number] 4 MARIIA OVERTON 2023 3 [place] FLUTICASONE 250MCG/SALM ETEROL 50MCG INHL,ORAL,D ISKUS,60 INHALE 1 INHALATI ON BY MOUTH TWICE A DAY FOR BREATHIN G -RINSE MOUTH AND SPIT AFTER EACH USE RESPIR ATORY (INHAL ATION) 01/16/2025 [id number] 4 MARIETTA FINNEGAN R 2023 3 [place] [facility] GLIPIZIDE 5MG TAB TAKE ONE TABLET BY MOUTH EVERY DAY FOR DIABETES ORAL ACTIVE 09/24/2025 [id number] 5 MARI[place]TA FINNEGAN R 2024 90 [place] [facility] GLIPIZIDE 5MG TAB TAKE ONE TABLET BY MOUTH EVERY DAY FOR DIABETES ORAL DISCONT INUED 07/17/2024 [id number] 4 MARIETTA FINNEGAN R 2023 90 [place] [facility] HYDROCODONE 7.5MG/ACETA MINOPHEN 325MG TAB TAKE 1 TABLET BY MOUTH THREE TIMES A DAY FOR PAIN ORAL 01/04/2025 [id number] HUMAIRA BLOCK 2024 90 [place] [facility] HYDROCODONE 7.5MG/ACETA MINOPHEN 325MG TAB TAKE 1 TABLET BY MOUTH THREE TIMES A DAY FOR PAIN ORAL 09/05/2024 [id number] 5 HUMAIRA BLOCK 2024 90 [place] [facility] HYDROCODONE 7.5MG/ACETA MINOPHEN 325MG TAB TAKE 1 TABLET BY MOUTH THREE TIMES A DAY FOR PAIN ORAL 07/16/2024 [id number] 4 KOUSA,KIT TA 2023 90 [place] [facility] HYDROCODONE 7.5MG/ACETA MINOPHEN 325MG TAB TAKE 1 TABLET BY MOUTH THREE TIMES A DAY FOR PAIN ORAL 06/07/2024 [id number] 4 KOUSA,KIT TA 2023 90 [place] [facility] HYDROCODONE 7.5MG/ACETA MINOPHEN 325MG TAB TAKE 1 TABLET BY MOUTH THREE TIMES A DAY FOR PAIN ORAL 04/03/2024 [id number] 4 KOUSA,KIT TA 2023 90 [place] [facility] HYDROCODONE 7.5MG/ACETA MINOPHEN 325MG TAB TAKE 1 TABLET BY MOUTH THREE TIMES A DAY FOR PAIN ORAL 02/22/2024 [id number] 4 KOUSA,KIT TA 2023 90 [place] [facility] ISOSORBIDE MONONITRATE 30MG TAB,SA TAKE ONE TABLET BY MOUTH DAILY FOR HEART ORAL ACTIVE 05/11/2025 [id number] 5 KOUSA,KIT TA 2024 90 [place] [facility] ISOSORBIDE MONONITRATE 30MG TAB,SA TAKE ONE TABLET BY MOUTH DAILY FOR HEART ORAL DISCONT INUED 07/17/2024 [id number] 4 MARIETTA FINNEGAN 2023 90 [place] [facility] LISINOPRIL 10MG TAB TAKE ONE-HALF TABLET BY MOUTH DAILY FOR HIGH BLOOD PRESSURE ORAL ACTIVE 05/20/2025 [id number] 5 KOUSA,KIT TA 2023 45 [place] [facility] MULTIVITAMI NS W/MINERALS CAP/TAB TAKE ONE TABLET BY MOUTH DAILY ORAL ACTIVE MILLER VÁSQUEZ W 2007 [place] NIACIN (SLO-NIACIN ) 500MG TAB,SA TAKE TWO TABLETS BY MOUTH AT BEDTIME ORAL ACTIVE DAGO POTTER IN C 2018 [place] [facility] [place] PANTOPRAZOL E NA 40MG TAB,EC TAKE ONE TABLET BY MOUTH EVERY DAY 30 MINUTES BEFORE A MEAL FOR STOMACH. TAKE ON AN EMPTY STOMACH. ORAL ACTIVE 08/27/2025 [id number] 5 MARIETTA FINNEGAN R 2024 90 [place] [facility] PANTOPRAZOL E NA 40MG TAB,EC TAKE ONE TABLET BY MOUTH EVERY DAY 30 MINUTES BEFORE A MEAL FOR STOMACH. TAKE ON AN EMPTY STOMACH. ORAL DISCONT INUED 07/17/2024 [id number] 4 MARIETTA FINNEGAN R 2023 90 [place] [facility] POLYETHYLEN E GLYCOL 3350 PWDR,ORAL MIX 1 HEAPING TABLESPO ONFUL IN LIQUID AND TAKE BY MOUTH DAILY ORAL ACTIVE DAGO POTTER IN C 2018 [place] [facility] ROSUVASTATI N CA 20MG TAB TAKE ONE-HALF TABLET BY MOUTH AT BEDTIME FOR CHOLESTE ROL ORAL DISCONT INUED (EDIT) 10/16/2024 [id number] 4 MARIETTA FINNEGAN R 2023 45 [place] [facility] ROSUVASTATI N CA 40MG TAB TAKE ONE-HALF TABLET BY MOUTH AT BEDTIME FOR CHOLESTE ROL ORAL ACTIVE 05/20/2025 [id number] 5 HUMAIRA BLOCK TA 2023 45 [place] [facility] SODIUM BICARBONATE 650MG TAB TAKE ONE TABLET BY MOUTH TWICE A DAY FOR EXCESS BODY ACID ORAL ACTIVE 07/24/2025 [id number] 5 Nadia GAY W 2024 180 [place] ZINC (FROM SULFATE) CAP,ORAL TAKE 25MG BY MOUTH EVERY EVENING ORAL ACTIVE DAGO POTTER IN C 2019 [place] [facility] Allergies, Adverse Reactions, Alerts Combined list of allergies from Department of Defense and Veterans Affairs facilities. It does not include entries that were removed or entered in error. Substance Category Reaction Severity Reaction type Status Date Reported Comments Source ATORVASTATIN Propensity to adverse reactions to drug (finding) Muscle pain MILD active 1 [place] [facility] CLOPIDOGREL Propensity to adverse reactions to drug (finding) Loss of appetite, Taste sense altered active 2 [facility] PENICILLIN Propensity to adverse reactions to drug (finding) Urticaria active 9 [facility] Immunizations Combined list of available immunizations from the Department of Defense and [facility] Affairs facilities. Immunization Series Date Given Administered By Site Reaction Lot Number CVX Code Drug Fireworks Display Specialist Status Comments Source INFLUENZA, HIGH-DOSE, TRIVALENT, PF 2 2023 135 complet ed HISTORICA L INFORMATI ON - FROM OTHER REGISTRY, [place] [facility] INFLUENZA, UNSPECIFIED FORMULATION 2022 88 complet ed HISTORICA L INFORMATI ON - FROM OTHER PROVIDER, [place] [facility] COVID-19 (Fubles), MRNA, LNP-S, BIVALENT BOOSTER, PF, 30 MCG/0.3 ML DOSE 1 2022 SPEARSDEJON Schwab LEFT DELTO ID [id number] 300 complet ed ADMINISTE RED AT PA, [place] [facility] INFLUENZA, UNSPECIFIED FORMULATION 2021 88 complet ed HISTORICA L INFORMATI ON - FROM OTHER PROVIDER, [place] [facility] COVID-19 (Fubles), MRNA, LNP-S, PF, 30 MCG/0.3 ML DOSE, EMERITA-SUCROSE (AGES 12+ YEARS) 4 2021 217 complet ed PFR; [id number]; 2 [place] INFLUENZA VACCINE, QUADRIVALENT, ADJUVANTED 1 2020 205 complet ed HISTORICA L INFORMATI ON - FROM OTHER REGISTRY, [place] [facility] COVID-19 (Fubles), MRNA, LNP-S, PF, 30 MCG/0.3 ML DOSE 3 2020 208 complet ed [place] [facility] TDAP 1 2020 115 complet ed HISTORICA L INFORMATI ON - FROM OTHER REGISTRY, [place] [facility] COVID-19 (Fubles), MRNA, LNP-S, PF, 30 MCG/0.3 ML DOSE 2 2020 208 complet ed PFR; [id number]; 1 [place] COVID-19 (PFIZER), MRNA, LNP-S, PF, 30 MCG/0.3 ML DOSE 1 2020 208 complet ed PFR; [id number]; 1 [place] INFLUENZA, SEASONAL, INJECTABLE 2018 141 complet ed UTD [place] [facility] [place] INFLUENZA, SEASONAL, INJECTABLE 2017 141 complet ed [place] [facility] INFLUENZA A & B (HISTORICAL) 2014 88 complet ed [place] [facility] INFLUENZA A & B (HISTORICAL) 2013 88 complet ed [place] [facility] INFLUENZA A & B (HISTORICAL) 2011 88 complet ed [place] [facility] INFLUENZA A & B (HISTORICAL) 2010 [...] FORMULATION 2001 88 complet ed [place] [facility] PNEUMOCOCCAL, UNSPECIFIED FORMULATION 2001 109 complet ed Up to date. [place] [facility](ADULT) UNSPECIFIED FORMULATION 1996 139 complet ed Up to date. [place] [facility] Results Combined list of recent chemistry, hematology [...] Jun 25, 2024 10:29 AM Reporting Lab: [facility] [place] [id number] Performing Lab: [facility] [place] [id number] URINALYS IS APPEARANCE OF URINE Clear 07/23 Specimen Type: URINE No comment entered. Ordering Provider: MAKENZIE GAY Report Released Date/Time: Jun 25, 2024 10:29 AM Reporting Lab: [place] [address] [phone] Performing Lab: [place] [phone] [place] [address] URINALYS IS UROBILINOG EN [MASS/VOLU ME] IN URINE BY TEST STRIP Normalmg /dL 07/23 Specimen Type: URINE No comment entered. Ordering Provider: MAKENZIE GAY Report Released Date/Time: Jun 25, 2024 10:29 AM Reporting Lab: [place] [address] [address] Performing Lab: [facility] [place] [phone] [place] [address] URINALYS IS HEMOGLOBIN [PRESENCE] IN URINE BY TEST STRIP Negative 07/23 Specimen Type: URINE No comment entered. Ordering Provider: MAKENZIE GAY Report Released Date/Time: Jun 25, 2024 10:29 AM Reporting Lab: [place] [address] [address] Performing Lab: [place] [id number] [facility] [phone] [facility] URINALYS IS BILIRUBIN. TOTAL [PRESENCE] IN URINE BY TEST STRIP Negative 07/23 Specimen Type: URINE No comment entered. Ordering Provider: MAKENZIE GAY Report Released Date/Time: Jun 25, 2024 10:29 AM Reporting Lab: [place] [phone] Performing Lab: [place] [phone] [facility] URINALYS IS KETONES [MASS/VOLU ME] IN URINE BY TEST STRIP Negative mg/dL 07/23 Specimen Type: URINE No comment entered. Ordering Provider: MAKENZIE GAY Report Released Date/Time: Jun 25, 2024 10:29 AM Reporting Lab: [place] [phone] Performing Lab: [place] [phone] [place] [address] URINALYS IS PROTEIN [MASS/VOLU ME] IN URINE BY TEST STRIP 30 mg/dL 07/23 H Specimen Type: URINE No comment entered. Ordering Provider: MAKENZIE GAY Report Released Date/Time: Jun 25, 2024 10:29 AM Reporting Lab: [place] [phone] Performing Lab: [place] [phone] [facility] URINALYS IS PH OF URINE BY TEST STRIP 5.5 4.5 - 8.0 07/23 Specimen Type: URINE No comment entered. Ordering Provider: MAKENZIE GAY Report Released Date/Time: Jun 25, 2024 10:29 AM Reporting Lab: [place] [phone] Performing Lab: [place] [phone] [facility] URINALYS IS NITRITE [PRESENCE] IN URINE BY TEST STRIP Negative 07/23 Specimen Type: URINE No comment entered. Ordering Provider: MAKENZIE GAY Report Released Date/Time: Jun 25, 2024 10:29 AM Reporting Lab: [place] [phone] Performing Lab: [place] [phone] [place] [address] URINALYS IS LEUKOCYTE ESTERASE [PRESENCE] IN URINE BY TEST STRIP TRACE 07/23 H Specimen Type: URINE No comment entered. Ordering Provider: MAKENZIE GAY Report Released Date/Time: Jun 25, 2024 10:29 AM Reporting Lab: [place] [phone] Performing Lab: [place] [phone] [place] [address] URINALYS IS SPECIFIC GRAVITY OF URINE 1.018 1.005 - 1.030 07/23 Specimen Type: URINE No comment entered. Ordering Provider: MAKENZIE GAY Report Released Date/Time: Jun 25, 2024 10:29 AM Reporting Lab: [place] [phone] Performing Lab: [place] [phone] [place] [address] URINALYS IS GLUCOSE [MASS/VOLU ME] IN URINE BY TEST STRIP >1000mg/ dL 07/23 H Specimen Type: URINE No comment entered. Ordering Provider: MAKENZIE GAY Report Released Date/Time: Jun 25, 2024 10:29 AM Reporting Lab: [place] [phone] Performing Lab: [place] [phone] [place] [address] URINALYS IS LEUKOCYTES [#/AREA] IN URINE SEDIMENT BY AUTOMATED COUNT 2 /[HPF] 0 - 3 07/23 Specimen Type: URINE No comment entered. Ordering Provider: MAKENZIE GAY Report Released Date/Time: Jun 25, 2024 10:29 AM Reporting Lab: [place] [phone] Performing Lab: [place] [phone] [facility] URINALYS IS EPITHELIAL CELLS.SQUA MOUS [#/AREA] IN URINE SEDIMENT BY AUTOMATED COUNT 3 /[LPF] 0 - 28 07/23 Specimen Type: URINE No comment entered. Ordering Provider: MAKENZIE GAY Report Released Date/Time: Jun 25, 2024 10:29 AM Reporting Lab: [address] Performing Lab: [place] [phone] [facility] URINALYS IS HYALINE CASTS [#/AREA] IN URINE SEDIMENT BY AUTOMATED COUNT 1 /[LPF] 0 - 2 07/23 Specimen Type: URINE No comment entered. Ordering Provider: MAKENZIE GAY Report Released Date/Time: Jun 25, 2024 10:29 AM Reporting Lab: [place] [phone] Performing Lab: [place] [phone] [place] [address] PTH INTACT ([place]) PARATHYRIN .INTACT [MASS/VOLU ME] [...] Jun 25, 2024 10:29 AM Reporting Lab: [place] [phone] Performing Lab: [place] [phone] 25-OH VITAMIN D 25-HYDROXY VITAMIN D3 [MASS/VOLU [...] Jun 25, 2024 10:29 AM Reporting Lab: [place] [phone] Performing Lab: [place] [phone] [place] [address] CBC/PLT LEUKOCYTES [#/VOLUME] IN BLOOD BY AUTOMATED COUNT 8.2 10*3/uL 5.0 - 10.0 07/23 Specimen Type: BLOOD No comment entered. Ordering Provider: MAKENZIE GAY Report Released Date/Time: Jun 25, 2024 10:29 AM Reporting Lab: [place] [phone] Performing Lab: [place] [phone] [place] [address] CBC/PLT ERYTHROCYT ES [#/VOLUME] IN BLOOD BY AUTOMATED COUNT 4.81 10*6/uL 4.6 - 6.2 07/23 Specimen Type: BLOOD No comment entered. Ordering Provider: MAKENZIE GAY Report Released Date/Time: Jun 25, 2024 10:29 AM Reporting Lab: [place] [phone] Performing Lab: [place] [phone] [facility] CBC/PLT HEMOGLOBIN [MASS/VOLU ME] IN BLOOD 14.7 g/dL 14.0 - 18.0 07/23 Specimen Type: BLOOD No comment entered. Ordering Provider: MAKENZIE GAY Report Released Date/Time: Jun 25, 2024 10:29 AM Reporting Lab: [place] [phone] Performing Lab: [place] [phone] [place] [address] CBC/PLT HEMATOCRIT [VOLUME FRACTION] OF BLOOD BY AUTOMATED COUNT 44.4 42.0 - 52.0 07/23 Specimen Type: BLOOD No comment entered. Ordering Provider: MAKENZIE GAY Report Released Date/Time: Jun 25, 2024 10:29 AM Reporting Lab: [place] [phone] Performing Lab: [place] [phone] CBC/PLT MCV [ENTITIC VOLUME] BY AUTOMATED COUNT 92.3 fL 80.0 - 94.0 07/23 Specimen Type: BLOOD No comment entered. Ordering Provider: MAKENZIE GAY Report Released Date/Time: Jun 25, 2024 10:29 AM Reporting Lab: [place] [phone] Performing Lab: [place] [phone] CBC/PLT MCH [ENTITIC MASS] BY AUTOMATED COUNT 30.6 pg 27.0 - 31.0 07/23 Specimen Type: BLOOD No comment entered. Ordering Provider: MAKENZIE GAY Report Released Date/Time: Jun 25, 2024 10:29 AM Reporting Lab: [address] Performing Lab: [place] [phone] CBC/PLT MCHC [MASS/VOLU ME] BY AUTOMATED COUNT 33.1 g/dL 32.0 - 36.0 07/23 Specimen Type: BLOOD No comment entered. Ordering Provider: MAKENZIE GAY Report Released Date/Time: Jun 25, 2024 10:29 AM Reporting Lab: [place] [phone] Performing Lab: [place] [phone] CBC/PLT PLATELETS [#/VOLUME] IN BLOOD 165 10*3/uL 150 - 450 07/23 Specimen Type: BLOOD No comment entered. Ordering Provider: MAKENZIE GAY Report Released Date/Time: Jun 25, 2024 10:29 AM Reporting Lab: [place] [id number] Performing Lab: [address] CBC/PLT PLATELET MEAN VOLUME [ENTITIC VOLUME] IN BLOOD 9.6 fL 9.0 - 13.1 07/23 Specimen Type: BLOOD No comment entered. Ordering Provider: MAKENZIE GAY Report Released Date/Time: Jun 25, 2024 10:29 AM Reporting Lab: [place] [id number] Performing Lab: [address] CBC/PLT ERYTHROCYT E DISTRIBUTI ON WIDTH [ENTITIC VOLUME] BY AUTOMATED COUNT 15.9 11.0 - 16.0 07/23 Specimen Type: BLOOD No comment entered. Ordering Provider: MAKENZIE GAY Report Released Date/Time: Jun 25, 2024 10:29 AM Reporting Lab: [place] [address] Performing Lab: [address] CBC/PLT NUCLEATED ERYTHROCYT ES/100 ERYTHROCYT ES IN BLOOD 0.0 0.0 - 0.0 07/23 Specimen Type: BLOOD No comment entered. Ordering Provider: MAKENZIE GAY Report Released Date/Time: Jun 25, 2024 10:29 AM Reporting Lab: [place] [address] Performing Lab: [place] [id number] PANEL 4 CREATININE [MASS/VOLU ME] IN SERUM [...] 2024 10:29 AM Reporting Lab: [facility] [address] [id number] Performing Lab: [facility] [address] [id number] [facility] PANEL 4 UREA NITROGEN [MASS/VOLU ME] IN SERUM OR PLASMA 41 mg/dL 9 - 07/23 H Specimen Type: PLASMA Comment: Estimated [...] 2024 10:29 AM Reporting Lab: [facility] [address] [id number] Performing Lab: MICHAEL WEAVER [place] [address] [facility] [address] SCOOBY MURILLO [facility] PANEL 4 GLUCOSE [MASS/VOLU ME] IN [...] 2024 10:29 AM Reporting Lab: MICHAEL WEAVER [place] [address] [facility] [address] Performing Lab: MICHAEL WEAVER [facility] [address] [facility] [address] SCOOBY MURILLO [facility] PANEL 4 SODIUM [MOLES/VOL UME] IN [...] 25, 2024 10:29 AM Reporting Lab: MICHAEL OWEN [facility] [address] [facility] [address] Performing Lab: MICHAEL OWEN [facility] [address] [facility] [address] SCOOBY MURILLO [facility] PANEL 4 POTASSIUM [MOLES/VOL UME] IN [...] 2024 10:29 AM Reporting Lab: MICHAEL WEAVER [facility] [address] [facility] [address] Performing Lab: MICHAEL WEAVER [facility] [address] [facility] [address] [facility] PANEL 4 CHLORIDE [MOLES/VOL UME] IN [...] Jun 25, 2024 10:29 AM Reporting Lab: SCOOBY-Janes WEAVER [facility] [address] [facility] [address] Performing Lab: SCOOBY-C DD [facility] [address] [facility] [address] [facility] PANEL 4 CARBON DIOXIDE, TOTAL [MOLES/VOL UME] IN SERUM OR PLASMA 16 mmol/L 07/23 L Specimen Type: PLASMA Comment: Estimated [...] 2024 10:29 AM Reporting Lab: MICHAEL WEAVER [facility] [address] [facility] [address] Performing Lab: MICHAEL WEAVER [facility] [address] [facility] [address] SCOOBY MURILLO [facility] PANEL 4 CALCIUM [MASS/VOLU ME] IN [...] 2024 10:29 AM Reporting Lab: MICHAEL WEAVER [address] [address] Performing Lab: MICHAEL WEAVER [address] [address] [facility] PANEL 4 PHOSPHATE [MASS/VOLU ME] IN [...] 2024 10:29 AM Reporting Lab: MICHAEL WEAVER [address] [address] Performing Lab: MICHAEL WEAVER [address] [address] [facility] PANEL 4 ALBUMIN [MASS/VOLU ME] IN [...] 2024 10:29 AM Reporting Lab: MICHAEL WEAVER [address] [address] Performing Lab: MICHAEL WEAVER [address] [address] SCOOBY MURILLO [facility] PANEL 4 ANION GAP 3 IN [...] 2024 10:29 AM Reporting Lab: MICHAEL WEAVER [address] [address] Performing Lab: MICHAEL WEAVER [address] [address] SOCOBY MURILLO [facility] PANEL 4 GLOMERULAR FILTRATION RATE/1.73 SQ [...] 2024 10:29 AM Reporting Lab: MICHAEL WEAVER [address] [address] Performing Lab: MICHAEL WEAVER [address] [address] [facility] DRUG SCREEN EXPANDED IN-HOUSE TETRAHYDRO CANNABINOL [PRESENCE] [...] Jun 16, 2024 10:42 AM Reporting Lab: [address] [address] Performing Lab: [address] [address] [facility] DRUG SCREEN EXPANDED IN-HOUSE AMPHETAMIN ES [PRESENCE] [...] Jun 16, 2024 10:42 AM Reporting Lab: [address] [address] Performing Lab: [address] [address] [facility] DRUG SCREEN EXPANDED IN-HOUSE BARBITURAT ES [PRESENCE] [...] Jun 16, 2024 10:42 AM Reporting Lab: [address] [address] Performing Lab: [address] [address] [facility] DRUG SCREEN EXPANDED IN-HOUSE BENZODIAZE PINES [PRESENCE] [...] Jun 16, 2024 10:42 AM Reporting Lab: [address] [address] Performing Lab: [address] [address] [facility] DRUG SCREEN EXPANDED IN-HOUSE BENZOYLECG ONINE [PRESENCE] [...] Jun 16, 2024 10:42 AM Reporting Lab: [address] [address] Performing Lab: [address] [address] [facility] DRUG SCREEN EXPANDED IN-HOUSE OPIATES [PRESENCE] IN [...] Jun 16, 2024 10:42 AM Reporting Lab: [address] [address] Performing Lab: [address] [address] [facility] DRUG SCREEN EXPANDED IN-HOUSE METHADONE [PRESENCE] IN [...] Jun 16, 2024 10:42 AM Reporting Lab: [address] [address] Performing Lab: [address] [address] [facility] DRUG SCREEN EXPANDED IN-HOUSE OXYCODONE [PRESENCE] IN [...] Jun 16, 2024 10:42 AM Reporting Lab: [address] [address] Performing Lab: [address] [address] [facility] DRUG SCREEN EXPANDED IN-HOUSE BUPRENORPH INE+NORBUP RENORPHINE [...] Jun 16, 2024 10:42 AM Reporting Lab: [address] [address] Performing Lab: [address] [address] [facility] DRUG SCREEN EXPANDED IN-HOUSE FENTANYL SCREEN IN-HOUSE [...] Jun 16, 2024 10:42 AM Reporting Lab: [address] [address] Performing Lab: [address] [address] [facility] PHOSPHOR US PHOSPHATE [MASS/VOLU ME] IN SERUM OR PLASMA 5.1 mg/dL 2.3 - 4.7 05/17 H Specimen Type: PLASMA No comment entered. Ordering Provider: FAHAD BLOCK Report Released Date/Time: May 10, 2024 10:41 PM Reporting Lab: [address] [address] Performing Lab: [address] [address] [place] [address] IONIZED CALCIUM CALCIUM.IO NIZED [MOLES/VOL UME] IN BLOOD 1.22 mmol/L 1.15 - 1.29 05/17 Specimen Type: BLOOD No comment entered. Ordering Provider: FAHAD BLOCK Report Released Date/Time: May 10, 2024 10:41 PM Reporting Lab: [address] [address] Performing Lab: [address] [place] [address] PTH INTACT ([place]) PARATHYRIN .INTACT [MASS/VOLU ME] [...] May 10, 2024 10:41 PM Reporting Lab: [address] [address] Performing Lab: [address] [address] [facility] MICROALB UMIN/CRE AT RATIO CREATININE [MASS/VOLU ME] IN URINE 77.4 mg/dL 05/10 Specimen Type: URINE No comment entered. Ordering Provider: FAHAD BLOCK Report Released Date/Time: May 10, 2024 08:34 AM Reporting Lab: [address] [address] Performing Lab: [place] [phone] [facility] MICROALB UMIN/CRE AT RATIO MICROALBUM IN [MASS/VOLU ME] IN URINE 370.8 mg/L 0.0 - 30.0 05/10 H Specimen Type: URINE No comment entered. Ordering Provider: FAHAD BLOCK Report Released Date/Time: May 10, 2024 08:34 AM Reporting Lab: [place] [phone] Performing Lab: [place] [address] [facility] MICROALB UMIN/CRE AT RATIO MICROALBUM IN/CREATIN INE [MASS RATIO] IN URINE 479.1 ug/mg{cr eat} 05/10 Specimen Type: URINE No comment entered. Ordering Provider: FAHAD BLOCK Report Released Date/Time: May 10, 2024 08:34 AM Reporting Lab: [place] [phone] Performing Lab: [place] [address] [facility] Vital Signs Combined list of inpatient and outpatient Vital Signs from Department of Defense and Veterans Affairs, ranging from 12 months to all on record, depending upon the facility. Vital Sign Value Date Comments Source SYSTOLIC BLOOD PRESSURE 118 07/23/2024 13:10:00 [facility] DIASTOLIC BLOOD PRESSURE 64 07/23/2024 13:10:00 [facility] PULSE OXIMETRY 97 07/23/2024 13:10:00 L [facility] WEIGHT 206.8 07/23/2024 13:10:00 [facility] BMI 29 kg/m2 07/23/2024 13:10:00 DICKIN [facility] PAIN 8 07/23/2024 13:10:00 [facility] TEMPERATURE 97.7 07/23/2024 13:10:00 GUILLERMO [facility] PULSE 85 07/23/2024 13:10:00 [facility] SYSTOLIC BLOOD PRESSURE 132 05/10/2024 07:54:04 SCOOBY [facility] DIASTOLIC BLOOD PRESSURE 75 05/10/2024 07:54:04 [facility] PULSE OXIMETRY 99 05/10/2024 07:54:04 L [facility]REST [facility] WEIGHT 203 05/10/2024 07:54:04 JULIA LOPEZ [facility] BMI 28 kg/m2 05/10/2024 07:54:04 [facility] PAIN 0 05/10/2024 07:54:04 [place] [facility] HEIGHT 71 05/10/2024 07:54:04 DICKIN NOVA [facility] TEMPERATURE 98.1 05/10/2024 07:54:04 GUILLERMO AGUILERA [facility] PULSE 99 05/10/2024 07:54:04 [facility] Encounters Combined list of: 1) Encounters from Department of Veterans Affairs facilities going backup to the last 18 months, not all PA inpatient encounters are included; 2) Encounters from the Department of [facility] facilities going backup to 280 months. Location Location Details Encounter Type Encounter Number Reason For Visit Attending Provider ADM Date DC Date Status Disposition Source [facility] HC PRO PHONE CALL 5-10 MIN [id number] Diagnos is: ICD-10- CM H25.11 Age-rel ated nuclear catarac t, right eye ALIN MULLEN 08/08 [place] [facility] Outpatient Encounter [id number] Diagnos is: ICD-10- CM H25.11 Age-rel ated nuclear catarac t, right eye MIKAELA HAM 08/10 [place] [facility] Outpatient Encounter [id number] NALDO ANGEL 08/10 [place] [facility] Outpatient Encounter [id number] CHANDA CROCKETT MA 08/10 [place] [facility] XCAPSL CTRC RMVL W/O ECP [id number] TREVER THOMPSON 08/10 [place] [facility] 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 OPERATOR ADJUSTER LEGAL CLERK INDIVIDU [id number] Diagnos is: ICD-10- CM 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 NURYS Ham 08/10 [place] [facility] Outpatient Encounter [id number] NALDO ANGEL 08/10 [place] [facility] POSTOP FOLLOW-UP VISIT [id number] Diagnos is: ICD-10- CM Z48.810 Encntr for surgica l aftcr fol surgery on the sense organs INDER DE LOMELI,A NA 08/11 [place] [facility] INTRM OPH EXAM EST PATIENT [id number] Diagnos is: ICD-10- CM Z48.810 Encntr for surgica l aftcr fol surgery on the sense organs ANDREAS,ALINL A R 08/17 [place] [facility] Outpatient Encounter [id number] 08/18 [place] [facility] HC PRO PHONE CALL 5-10 MIN [id number] Diagnos is: ICD-10- CM R05.9 Cough, unspeci fied FELIPE VARELA NNAH R 08/18 [place] [facility] Outpatient Encounter [id number] SUZY MANZANARES RLENE H 08/21 [place] [facility] Outpatient Encounter [id number] SUZY MANZANARES H 08/21 [place] [facility] POSTOP FOLLOW-UP VISIT [id number] Diagnos is: ICD-10- CM Z98.41 Catarac t extract ion status, right eye GAMBOA,ER IC B 09/10 [place] [facility] HC PRO PHONE CALL 5-10 MIN [id number] Diagnos is: ICD-10- CM H25.12 Age-rel ated nuclear catarac t, left eye ALIN MULLEN M 10/03 [place] Outpatient Encounter [id number] Diagnos is: ICD-10- CM H25.12 Age-rel ated nuclear catarac t, left eye STORM POTTER IE L 10/04 [place] [facility] 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 LEGAL CLERK INDIVIDU [id number] Diagnos is: ICD-10- CM 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 KEERTHI Romero L 10/04 [place] Outpatient Encounter [id number] 10/04 [place] [facility] Outpatient Encounter [id number] NIKKI COMER A 10/04 [place] Outpatient Encounter [id number] CHANDA CROCKETT MA 10/04 [place] XCAPSL CTRC RMVL W/O ECP [id number] MARIAJOSE PHOENIX M 10/04 [place] [facility] Outpatient Encounter [id number] NIKKI COMER HER A 10/04 [place] Outpatient Encounter [id number] NIKKI COMER HER A 10/04 [place] POSTOP FOLLOW-UP VISIT [id number] Diagnos is: ICD-10- CM Z48.810 Encntr for surgica l aftcr fol surgery on the sense organs COLBY GAMBOA IC B 10/05 [place] [facility] POSTOP FOLLOW-UP VISIT [id number] Diagnos is: ICD-10- CM Z48.810 Encntr for surgica l aftcr fol surgery on the sense organs LESLIE JOHNS R 10/10 [place] [facility] Outpatient Encounter [id number] 10/29 [place] [facility] POSTOP FOLLOW-UP VISIT [id number] Diagnos is: ICD-10- CM Z98.42 Catarac t extract ion status, left eye LESLIE JOHNS R 11/07 [place] OFFICE O/P EST LOW 20 MIN [id number] Diagnos is: ICD-10- CM H04.123 Dry eye syndrom e of bilater al lacrima l glands ANDREA,JJ L 12/11 [place] [facility] [place] [facility] Outpatient Encounter [id number] 12/18 [place] [facility] Outpatient Encounter [id number] 12/18 [place] Outpatient Encounter [id number] 12/31 [place] [facility] Outpatient Encounter [id number] 01/22 [place] [facility] Outpatient Encounter [id number] 01/22 [place] [facility] Outpatient Encounter [id number] 03/04 [place] [facility] Outpatient Encounter [id number] 03/04 [place] [facility] Outpatient Encounter [id number] 04/12 [place] [facility] QNHP OL DIG ASSMT&MGMT 21+ [id number] Diagnos is: ICD-10- CM 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 LARRY,AND REW L 04/15 [place] [facility] Outpatient Encounter [id number] 04/16 [place] Outpatient Encounter [id number] 05/04 [place] [facility] Outpatient Encounter [id number] 05/08 [place] [facility] Outpatient Encounter [id number] 05/08 [place] Outpatient Encounter [id number] 05/08 [place] [facility] Outpatient Encounter [id number] 05/09 [place] OFFICE O/P EST MOD 30 MIN [id number] Diagnos is: ICD-10- CM M54.59 Other low back pain ISAIAS BLOCK 05/10 [place] [facility] HC PRO PHONE CALL 5-10 MIN [id number] Diagnos is: ICD-10- CM E11.8 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 MCLEAN,L QUYNH G 05/14 [place] [facility] Outpatient Encounter [id number] 05/14 [place] [facility] HC PRO PHONE CALL 5-10 MIN [id number] Diagnos is: ICD-10- CM R79.9 Abnorma l finding of blood geochemist ry, unspeci fied MCLEAN,L QUYNH G 05/28 [place] [facility] Outpatient Encounter [id number] 06/14 [place] [facility] Outpatient Encounter [id number] 06/16 [place] [facility] HC PRO PHONE CALL 5-10 MIN [id number] Diagnos is: ICD-10- CM M54.59 Other low back pain DENISE POTTER M 06/20 [place] [facility] OFFICE O/P EST MOD 30 MIN [id number] Diagnos is: ICD-10- CM 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 12/05 [place] [facility] OFFICE O/P EST MOD 30 MIN [id number] Diagnos is: ICD-10- CM E11.9 Type 2 diabete s mellitu s without complic ations JJ MENDEZ 12/10 [place] [facility] Procedures Combined list of: 1) Procedures from Department of [facility] Affairs facilities going back up to thelast 18 months, not all PA non-surgical procedures are included; 2) All procedures from the Department of Defense facilities. Procedure Procedure Type Code Date Perfomer Comments Joseph e LEFT EYE EXTRACAPSULAR CATARACT EXTRACTION WITH POSTERIOR CHAMBER INTRAOCULAR LENS IMPLANT XCAPSL CTRC RMVL W/O ECP 02966 4 KRISSY PONCE [facility] RIGHT EYE EXTRACAPSULAR CATARACT EXTRACTION WITH POSTERIOR CHAMBER INTRAOCULAR LENS IMPLANT XCAPSL CTRC RMVL W/O ECP 12673 4 TREVER THOMPSON Other Procedure CPT Code(s): RT-RIGHT SIDE, GR-SERVICE BY PA RESIDENT MICHAEL WEAVER [facility] Social History Combined list of available smoking, tobacco, and other social history from Department of Defense and Veterans Affairs facilities. Social History Type Response Date Comment Source Tobacco smoking status NHIS VA-TOBACCO USER EVERY DAY 05/10/2024 [facility] History of tobacco use VATOBACCO USE WI 30 MIN OF WAKEUP 05/10/2024 [facility] History of tobacco use PA-TOBACCO USER EVERY DAY 06/02/2023 [facility] History of tobacco use PA-TOBACCO USER EVERY DAY 06/29/2022 [facility] History of tobacco use PA-TOBACCO USER EVERY DAY 07/13/2021 [facility] LEGAL CLERK NO 12/31/2018 [facility] History of tobacco use V9 CURRENT TOBACCO USER 01/08/2018 [facility] History of tobacco use V9 LIFETIME NON-USER OF TOBACCO 12/15/2016 [facility] History of tobacco use V9 CURRENT TOBACCO USER 09/07/2015 [facility] History of tobacco use V9 CURRENT TOBACCO USER 11/27/2014 [facility] History of tobacco use V9 CURRENT TOBACCO USER 10/16/2013 [facility] History of tobacco use V9 CURRENT TOBACCO USER 06/13/2012 [facility] History of tobacco use V9 CURRENT TOBACCO USER 04/06/2011 [facility] History of tobacco use V9 CURRENT TOBACCO USER 01/06/2010 [facility] History of tobacco use V9 CURRENT TOBACCO USER 12/02/2008 [facility] History of tobacco use V9 CURRENT TOBACCO USER 09/05/2007 [facility] History of tobacco use V9 CURRENT TOBACCO USER 08/10/2006 [facility] History of tobacco use HF V9 SECOND TOBACCO LEGAL CLERK 02/22/2006 occ. [facility] History of tobacco use HF V9 CURRENT SMOKER 08/16/2005 SMOKES UP TO 2 PACKS/WK [facility] History of tobacco use HF V9 CURRENT NON-SMOKER 08/09/2004 about a week ago [facility] History of tobacco use HF V9 CURRENT NON-SMOKER 07/02/2003 7yrs ago [facility] History of tobacco use HF V9 CURRENT NON-SMOKER 04/26/2002 quit about 5 yrs ago. [facility] Advance Directives List of completed, amended, or rescinded Advance Directives on record at [facility] facilities. An actual copy of the Directive is not included. Date Advance Directive Provider Source 10/17/2011 ADVANCE DIRECTIVE DISCUSSION AMY VÁSQUEZ [facility] 08/11/2010 ADVANCE DIRECTIVE DISCUSSION AMY VÁSQUEZ [facility] 06/04/2009 ADVANCE DIRECTIVE DISCUSSION AMY VÁSQUEZ [facility]
--- OUTSIDE RECORDS SUMMARY | 2025-02-04 10:16 | XMS_ITS | Encounter Summary ---
Author Organization [facility] Address [facility] [place] [address] Care Team Providers Care Director Of Materials Name Role Phone Markus Ramirez MD Primary Care Provider [phone] Reason for Referral * Consultation (Routine) - Authorized Specialty Diagnoses / Procedures Referred By Contac t Referred To Contact Nephrology Diagnoses Nonspecific abnormal results of kidney function study Hypercalcemia Markus Ramirez MD [address] [place] [address] Phone: tel: fax: [facility] [address] [place] [address] Phone: tel: fax: Referral ID Status Reason Start Date Expiration Date Visits Requested Visits Authorized [id number] Authorized Specialty Services Required 08/19/2024 02/18/2026 1 1 Encounter Details Date Type Department Care Team (Late st Contact Info) Description 08/19/2024 [facility] [address] [place] [address] Markus Ramirez MD [address] [place] [address] Nonspecific abnormal results of kidney function study [...] Hypercalcemia documented in this encounter Care Teams Director Of Materials Relationship Specialty Start Date End Date Markus Ramirez MD [address] [place] [address] PCP - General Internal Medicine 08/21/24 documented as of this encounter
--- OUTSIDE RECORDS SUMMARY | 2025-02-04 10:16 | XMS_ITS | Clinical Summary ---
Author Organization [facility] Address [address] [place] [id number] Phone Care Team Providers Care Jewel Hole Driller Name Role Phone Nathan WING, [place] [ ] Conditions or Problems Problem Name Problem Code Onset Date Status Entry Date Provider Comment Standard Description Annotate Nicotine dependence, cigarettes F17.210 (ICD-10-CM ) 12/13 Active 12/13 Dina Manuel Nicotine dependence, cigarettes, uncomplicated Abscess, groin 86826304 (SNOMED CT) 12/13 Active 12/13 Dina Manuel Abscess of groin Cellulitis, groin 98666534 (SNOMED CT) 12/13 Active 12/13 Dina Manuel Cellulitis of groin Cellulitis/ab scess, scrotal 18009874 (SNOMED CT) 12/13 Active 12/13 Dina Manuel Cellulitis of scrotum Coag neg staph infection B95.7 (ICD-10-CM ) 12/13 Active 12/13 Dina Manuel Other staphylococcus as the cause of diseases classified elsewhere Enterococcus infection 648438627 (SNOMED CT) 12/13 Active 12/13 Dina Manuel Infection caused by Enterococcus E. coli infection, non-shiga toxing-produc ing B96.29 (ICD-10-CM ) 12/13 Active 12/13 Dina Manuel Other Escherichia coli [E. 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 996248226 (SNOMED CT) 12/13 Active 12/13 Dina Jackson Peripheral vascular disease DM II with diabetic PVD 655200325 (SNOMED CT) 12/13 Active 12/13 Dina Jackson Peripheral vascular disease Benign Essential Hypertension 4408125 (SNOMED CT) 12/13 Active 12/13 Dina Jackson Benign essential hypertension Medications Medication Instructions Start Date Stop Date Generic Name NDC Provider NIACIN 500 MG TABS pobid qhn 5 NIACIN 64811295862 Marta Ferris MIRALAX ORAL PACKET 1 dose popid 5 POLYETHYLENE GLYCOL 3350 [id number] Marta JAMES NATURAL FISH OIL 1000 MG CAPS 2 capsules pobid 5 OMEGA-3 FATTY ACIDS 19237733409 Marta Ferris NITROSTAT 0.4 MG SUBL as instructed 9 NITROGLYCERIN 17543325318 Marta Ferris ZANTAC 150 MG ORAL TABLET 1 tab every morning 9 RANITIDINE HCL 59557171668 Marta Ferris CRESTOR 10 MG TABS 1 tab every night 9 ROSUVASTATIN CALCIUM 66329078012 Lizzie Velázquez ZANTAC 150 MG ORAL TABLET 1 tab every morning 9 RANITIDINE HCL 10493725888 Lizzie Velázquez EFFIENT 10 MG TABS 1 tab every morning 9 PRASUGREL HCL 98156599646 Lizzie Velázquez NITROSTAT 0.4 MG SUBL as instructed 9 NITROGLYCERIN 48008493807 Lizzie Velázquez CENTRUM SILVER TABS 1 tab daily 9 MULTIPLE VITAMINS-MINERAL S 55202128723 Lizzie Velázquez NORCO 7.5-325 MG ORAL TABLET 1 tab every 6 hours as needed for moderate pain 9 HYDROCODONE-ACET AMINOPHEN 97816319866 Lizzie Velázquez GLIPIZIDE 5 MG TABS daily 9 GLIPIZIDE 47352791933 Lizzie Velázquez COREG 12.5 MG TABS 1 tab every 12 hours 9 CARVEDILOL 04991857962 Lizzie Velázquez ADULT ASPIRIN EC LOW STRENGTH 81 MG ORAL TABLET DELAYED RELEASE 1 tab daily 9 ASPIRIN 79895979113 Lizzie Velázquez AMLODIPINE BESYLATE 10 MG TABS 1 tab daily 9 AMLODIPINE BESYLATE 81748390131 Lizzie Velázquez Medications Administered No information available. 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 PAT E-MAIL [email or web address] patient's e-mail address External Other: Patient selma rivas update - [facility]Status, [facility] ... PATPORTALPIN Linked This dyllan l [...] HEALTHC ARE SURROGATE PT HAS POWER OF SAP ARCHITECT
--- OUTSIDE RECORDS SUMMARY | 2025-02-04 10:16 | XMS_ITS | Clinical Summary ---
Author Organization [facility] Address [address] [place] [address] Care Team Providers Care Desktop Engineer Name Role Phone Markus Ramirez MD Primary Care Provider [phone] Social History Tobacco Use Types Packs/Day Years [...] or (1 - 1-dose 75+ series) 12/02/2011 [id number] Vaccine (3 - 2023- season) 2024 06/29/2022, [...] to complete this topic Insurance [place] [address] MEDICARE Member Subscriber Plan / Payer (Ef fective 2001-Present) Name:Kory Ny Member ID:[id number] Relation to Subscriber:Self Name:Kory Ny Subscriber ID:[id number] Payer ID:MEDICARE Group ID:Not on file Type:Medicare Address: [address] Care Teams Desktop Engineer Relationship Specialty Start Date End Date Markus Ramirez MD [address] [place] [address] PCP - General Internal Medicine 08/21/24
--- OUTSIDE RECORDS SUMMARY | 2025-02-04 10:16 | XMS_ITS | Clinical Summary ---
[facility] [address] [place] [id number] Care Team Providers Care Spring Assembler Supervisor Name Role Phone Markus Ramirez MD Primary Care Provider Allergies Active Allergy Reactions Criticality Noted Date Comments Amoxicillin Itching Medium 11/29/2017 Atorvastatin Myalgia Medium 06/16/2016 MYALGIA Penicillins Hives,Itching Medium 07/25/2016 ITCHING Clopidogrel Bisulfate GI Intolerance Medium 06/16/2016 METAL TASTE IN MOUTH THAT CAUSES WEIGHT LOSS Medications glipiZIDE (GLUCOTROL) 5 MG tablet Take 1 tablet by mouth Daily. Active Multiple Vitamins-Mineral s (CENTRUM SILVER PO) Take 1 tablet by mouth Daily. Active HYDROcodone-acet aminophen (NORCO) 7.5-325 MG per tablet Take 1 tablet by mouth Every 6 (Six) Hours As Needed for Moderate Pain. Takes 2 tabs qam Active aspirin 81 MG EC tabletIndication s:Coronary artery disease involving [place] coronary artery of [place] heart without angina pectoris Take 1 tablet by mouth Daily. 90 tablet 3 7 Active rosuvastatin (CRESTOR) 10 MG tablet Take 1 tablet by mouth Every Night. 30 tablet 2017 1:49 PM EDT 8 Active carvedilol (COREG) 12.5 MG tablet Take 1 tablet by mouth Every 12 (Twelve) Hours. 60 tablet 2017 1:49 PM EDT 8 Active Additional Information Patient taking differently:12.5 mg Oral2 Times Daily With Meals, Informant: Self, Reported on 10/21/2024 amLODIPine (NORVASC) 10 MG tabletIndication s:Essential hypertension Take 1 tablet by mouth Daily. 30 tablet 2017 1:49 PM EDT 8 Active [place]-3 Fatty Acids (FISH OIL) 1000 MG capsule capsule Take 1 capsule by mouth 2 (Two) Times a Day With Meals. 2 tablets twice daily Active polyethylene glycol (MIRALAX) packet Take 17 g by mouth Daily. Active niacin 500 MG tablet Take 1 tablet by mouth 2 (Two) Times a Day With Meals. Active pantoprazole (PROTONIX) 40 MG EC tablet Take 1 tablet by mouth Daily. Active Zinc Sulfate (ZINC 15 PO) Take 25 mg by mouth Daily. Active furosemide (LASIX) 20 MG tablet Take 0.5 tablets by mouth Daily. 0.5 tablet daily Active Ascorbic Acid (VITAMIN C PO) Take 500 mg by mouth Daily. Active isosorbide mononitrate (IMDUR) 30 MG 24 hr tablet Take 1 tablet by mouth Daily. 30 tablet 11 1 Active nitroglycerin (NITROSTAT) 0.[address] 1 tablet under the tongue Every 5 (Five) Minutes As Needed (chest pain). 25 tablet 5 3 Active albuterol sulfate HFA 108 (90 Base) MCG/ACT inhaler Inhale 2 puffs Every 4 (Four) Hours As Needed for Wheezing. Active Cholecalciferol 25 MCG (1000 UT) tablet Take 1 tablet by mouth Daily. Active metFORMIN (GLUCOPHAGE) 500 MG tablet Take 1 tablet by mouth every night at bedtime. 5 Active omeprazole (priLOSEC) 20 MG capsule Take 1 capsule by mouth Every 12 (Twelve) Hours. 5 Active Active Problems Problem Noted Date Diagnosed Date Cardiomyopathy 01/26/2023 Overview (01/26/2023): Echo 05-12-22: Calculated left ventricular EF = 30% Left ventricular ejection fraction appears to be 26 - 30%. Complete heart block 04/02/2018 Cardiac pacemaker in situ 08/12/2016 Overview (08/13/2016): Dual-chamber per a pacemaker for third-degree heart block by Mehdi Richardson, 06/2016 Chronic renal impairment, stage 3 (moderate) Coronary artery disease invo lving [place] coronary artery of [place] heart with unstable angina pectoris 06/16/2016 Overview (2017): PCI to left circumflex, 1997. Cardiac catheterization for NSTEMI (02/04/2012): TREY to second OM. Nonobstructive disease elsewhere. Normal LVEF. Cardiac catheterization for NSTEMI (08/13/2016): Severe 2-vessel CAD involving a 70% ISR lesion and a 95% stenosis at distal edge of previous stent in OM2. Additionally there was 100% chronic total occlusion of the proximal RCA. Echo (11/27/2017): LVEF = 45%. Mild global hypokinesis. Moderate LVH. Grade I diastolic dysfunction. Mild MR Cardiac catheterization (11/30/2017): Severe three-vessel CAD. Status post PCI to proximal LCX and OM2. Medical therapy for distal LAD disease and RCA WIRE THREADER. Residual bifurcation LCX/OM2 disease to be treated medically. 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 Resolved Problems Problem Noted Date Diagnosed Date Resolved Date ALISSON (acute kidney injury) 11/30/2017 Superficial bacterial skin infection 11/28/2017 01/26/2023 Overview (11/28/2017): Groin infection noted prior to planned C, 11/27/2017 Angina pectoris 11/27/2017 11/28/2017 Angina pectoris 11/24/2017 11/27/2017 Overview (11/24/2017): Added automatically from request for surgery [id number] Unstable angina 11/24/2017 11/30/2017 Overview (11/29/2017): Added automatically from request for surgery [id number] Coronary artery disease invo lving [place] coronary artery of [place] heart with angina pectoris 08/12/2016 11/27/2017 Overview (08/13/2016): Cardiac catheterization for NSTEMI (08/13/2016): Severe 2 vessel coronary artery disease involving a 70% ISR lesion and a 95% stenosis at distal edge of previous stent in OM2. Additionally there was 100% chronic total occlusion of the proximal RCA. 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 Patient unsure No Known Problems Brother 2 Cancer Father Heart disease Mother Munira Relation Name Status Comments Brother 1 Brother 2 Brother 3 Alive Father Mother Lucile Social History Tobacco Use Types Packs/Day Years Used Date Smoking Tobacco: Some Days Cigarettes 1 67.6 Started: 1956 Passive Smoke Exposure: Current Smokeless Tobacco: Never Tobacco Cessation:Ready to Q uit: Not Asked; Counseling Given: Not Answered Comments:has cut way back Alcohol Use Standard Drinks/Week Comments No 0 (1 standard drink = 0.6 oz pur e alcohol) AUDIT-C Answer Date Recorded Q1: How often do you have a drink containing alcohol? Never 01/26/2023 Q2: How many drinks containi ng alcohol do you have on a typical day when you are drinking? Patient does not drink Frequency of Binge Drinking Not on file 08/2022 PHQ-2 Answer Date Recorded Retired PHQ-9: Brief Depression Severity Measure Score 0 01/26/2023 Abuse Screen Answer Date Recorded Feels Unsafe at Home or Work/School no 01/26/2023 Feels Threatened by Someone no 08/2022 Does Anyone Try to Keep You From Having Contact with Others or Doing Things Outside Your Home? no 01/26/2023 Physical Signs of Abuse Present no 01/26/2023 Housing Stability Answer Date Recorded Current Living Arrangements home 08/2022 Potentially Unsafe Housing Conditions Not on angel e 01/26/2023 Disabilities Answer Date Recorded Difficulty Concentrating, Remembering or Making Decisions no 01/26/2023 Difficulty Managing Errands Independently no 01/26/2023 Education Answer Date Recorded Help with school or training? Not on file Preferred Language South Korean 01/17/2023 PHQ-2 Answer Date Recorded Retired PHQ-9: Brief Depression Severity Measure Score 0 01/26/2023 Sex and Gender Information Value Date Recorded Sex Assigned at Not on file Legal Sex Male 10:24 AM EDT Gender Identity Not on file Sexual Orientation Not on file Last Filed Vital Signs Vital Sign Reading Time Taken Comments Blood Pressure 112/50 10/21/2024 8:55 AM EDT Pulse 79 10/21/2024 8:55 AM EDT Temperature 36.6 C (97.9 F) 01/26/2023 12:00 PM EDT Respiratory Rate 16 01/26/2023 12:00 PM EDT Oxygen Saturation 98% 10/21/2024 8:55 AM EDT Inhaled Oxygen Concentration - - Weight 94.2 kg (207 lb 9.6 oz) 10/21/2024 8:55 A M EDT Height 180.3 cm (5' 11 ) 10/21/2024 8:55 AM EDT Body Mass Index 28.95 10/21/2024 8:55 AM EDT Plan of Treatment Upcoming Encounters Date Type Department Care Team (Late st Contact Info) Description 02/20/2025 10:15 AM EDT Office Visit [facility] [address] [place] [address] Jl Frederick MD [address] [facility] [address] [place] [address] 11/18/2025 9:15 AM EDT Office Visit [facility] [address] [facility] [address] [place] [address] William Bower MD [address] [facility] [address] [place] [address] Scheduled Procedures Name Priority Associated Diagnoses Date/Ti me CARDIAC CATHETERIZATION NSTEMI (non-ST elevated myocardial infarction) Health Maintenance Due Date Last Done Comments DIABETIC FOOT EXAM 1945 URINE MICROALBUMIN-CREATININ E RATIO (uACR) 1945 Pneumococcal Vaccine 50+ (1 of 2 - PCV) 12/02/1955 ZOSTER VACCINE (1 of 2) 1986 RSV Vaccine - Adults (1 - 1- dose 75+ series) 12/02/2011 DIABETIC EYE EXAM 08/04/2016 08/04/2015 ANNUAL WELLNESS VISIT 09/21/2016 HEMOGLOBIN A1C 06/12/2019 12/11/2018, 060 08/2017, 04/25/2016 LIPID PANEL 12/12/2019 12/11/2018, 060 08/2017, 07/26/2016, Additional history exists COVID-19 Vaccine (2023-2 5 season) 2024 06/29/2022, 11/26/2021, 03/10/2021, Additional history exists INFLUENZA VACCINE 03/26/2025 05/04/2024, , 03/17/2023, Additional history exists TDAP/TD VACCINES (2 - Td or Tdap) 09/09/2030 021 Medical Devices Implanted Type Area Floor And Wall Applier Liquid Device Identifier Shelf Expiration Date Model / Serial / Lot Env Antibac Tyrx Neuro Abs - [id number] Implanted:Qty : 1 on 01/26/2023 by William Bower MD at [facility] Implant Left: Heart MEDTRONIC 10/21/2023 [id number] / / [id number] Hemost Abs Surgicel Fibrillar 1x2 - [id number] Implanted:Qty : 1 on 01/26/2023 by William Bower MD at [facility] Implant N/A: Chest ETHICON DIV OF J AND J 07/26/2025 1961 / / [id number] Ld Pm Solia S 60 - [id number] - [id number] Implanted:Qty : 1 on 07/26/2016 by Mehdi Richardson DO at [facility] Lead Left: Heart BIOTRONIK 05/25/2018 [id number] / [id number] / Ld Pm Solia S 53 - [id number] - [id number] Implanted:Qty : 1 on 07/26/2016 by Mehdi Richardson DO at [facility] Lead Left: Heart BIOTRONIK 04/25/2018 [id number] / [id number] / Ld Pm Sentus Promri Otw Qp L85/49 - [id number] Implanted:Qty : 1 on 01/26/2023 by William Bower MD at [facility] Lead Left: Heart BIOTRONIK 03/25/2024 [id number] / / [id number] Ld Pm Solia S 53 - [id number] Implanted:Qty : 1 on 01/26/2023 by William Bower MD at [facility] Lead Left: Heart BIOTRONIK 10/23/2024 [id number] / / [id number] Gen Pm Eluna Dr T Promri - [id number] - [id number] Implanted:Qty : 1 on 07/26/2016 by Mehdi Richardson DO at [facility] Pacemaker Left: Chest BIOTRONIK 11/23/2017 [id number] / [id number] / Gen Pm [id number] Hf-T Qp Facilities Painter - [id number] Implanted:Qty : 1 on 01/26/2023 by William Bower MD at [facility] Pacemaker Left: Heart BIOTRONIK 04/25/2024 [id number] / / [id number] Stent Absorb Gt1 Bvs Rx 6f 3x18mm - [id number] Implanted:Qty : 1 on 08/13/2016 by Joseph Wills IV, MD at [facility] Stent ELL[place] VASCULAR [id number] / / Stent Xience Alpine Trey Rx 2.55d80du - [id number] Implanted:Qty : 1 on 08/13/2016 by Joseph Wills IV, MD at [facility] ELLINGTON VASCULAR [id number] / / Stent Xience Alpine Trey Rx 2.35m69rn - [id number] Implanted:Qty : 1 on 11/30/2017 by Joseph Wills IV, MD at [facility] [employer] VASCULAR 03/06/2020 [id number] / / [id number] Stent Xience Alpine Trey Rx 4.94s97tc - [id number] Implanted:Qty : 1 on 11/30/2017 by Joseph Wills IV, MD at [facility] [employer] VASCULAR 11/29/2019 [id number] / / [id number] Procedures Procedure Name Priority Date/Time Associated Diagnosis Comments REMOTE DEVICE CHECK 12/24/2024 1 2:53 AM EDT HEMOGLOBIN A1C STAT 11/26/2017 3:30 PM EDT LIPID PANEL STAT 11/26/2017 3:30 PM EDT from Last 3 Months or Most Recently Relevant to Health Maintenance Results * Remote Device Check (12/24/2024 12:53 AM EDT) Date Time Interrogation Session [id number] [facility] Type Interrogation Session RemoteScheduled [facility] Implantable Pulse Generator Floor And Wall Applier Liquid Biotronik [facility] Implantable Pulse Generator Type SOAPING MACHINE BACK TENDER-P [facility] Implantable Pulse Generator Model Edora 8 HF-T QP [facility] Implantable Pulse Generator Serial Number [id number] [facility] Implantable Pulse Generator Implant Date 20230126 [facility] Battery Remaining Percentage 80.00 % [facility] Battery Status [facility] Valerio Statistic RA Percent Paced 94.00 [facility] Valerio Statistic RV Percent Paced 100.00 [facility] SOAPING MACHINE BACK TENDER Statistic LV Percent Paced 100.00 [facility] SOAPING MACHINE BACK TENDER Statistic SOAPING MACHINE BACK TENDER Percent Paced 100.00 [facility] Atrial Tachy Statistic AT/AF [place] Percent 0.00 [facility] Lead Channel RA Sensing Intrinsic Amplitude 1.600 [facility] Lead Channel RA Impedance Value 546 [facility] Lead Channel RA Pacing Threshold Amplitude 1.300 [facility] Lead Channel RA Pacing Threshold Pulse Width 0.4 [facility] Lead Channel RA Measurements Date and Time 20241224 [facility] Lead Channel Setting RA Pacing Amplitude 2.000 [facility] Lead Channel Setting RA Pacing Pulse Width 0.4 [facility] Lead Channel RV Sensing Intrinsic Amplitude 15.800 [facility] Lead Channel RV Impedance Value 566 [facility] Lead Channel RV Pacing Threshold Amplitude 0.800 [facility] Lead Channel RV Pacing Threshold Pulse Width 0.4 [facility] Lead Channel RV Measurements Date and Time 20241224 [facility] Lead Channel Setting RV Pacing Amplitude 2.000 [facility] Lead Channel Setting RV Pacing Pulse Width 0.4 [facility] Lead Channel LV Sensing Intrinsic Amplitude 9.000 [facility] Lead Channel LV Impedance Value 741 [facility] Lead Channel LV Pacing Threshold Amplitude 2.500 [facility] Lead Channel LV Pacing Threshold Pulse Width 0.4 [facility] LV Lead Channel Measurements Date and Time 20241224 [facility] Lead Channel Setting LV Pacing Amplitude 3.000 [facility] Lead Channel Setting LV Pacing Pulse Width 0.4 [facility] Valerio Setting Mode (NBG Code) DDD-CLS [facility] Ventricular chambers paced during SOAPING MACHINE BACK TENDER pacing. BiV [facility] Valerio Setting Lower Rate Limit 70 [facility] Valerio Setting AT Mode Switch Rate 160 [facility] Valerio Setting Maximum Tracking Rate 130 [facility] Valerio Setting Maximum Sensor Rate 120 [facility] Valerio Setting PAV Delay 155 [facility] Valerio Setting TONNY Delay 125 [facility] SOAPING MACHINE BACK TENDER LV-RV Delay 0 [facility] Lead Channel Setting RA Sensing Polarity Bipolar [facility] Lead Channel Setting RV Sensing Polarity Bipolar [facility] Lead Channel Setting LV Sensing Polarity Bipolar [facility] Lead Channel Setting RA Pacing Polarity Bipolar [facility] Lead Channel Setting RV Pacing Polarity Bipolar [facility] Lead Channel Setting LV Pacing Polarity Bipolar [facility] Lead Channel RA Pacing Threshold Polarity Bipolar [facility] Lead Channel RV Pacing Threshold Polarity Bipolar [facility] Lead Channel LV Pacing Threshold Polarity Bipolar [facility] 12/24/2024 12:5 3 AM EDT William Bower MD CV IMPLANTABLE CARDIAC DEVICE Fi nal Result Performing Organization Address [facility]/ZIP Co de Phone Number [facility] * (ABNORMAL) Hemoglobin A1c (11/26/2017 3:30 PM EDT) Hemoglobin A1C 6.60(H) 4.80 - 5.60 % 11/26/2017 4:59 PM EDT [facility] Blood Venipuncture / Unknown 11/26/2017 3:30 PM EDT 11/26/2017 3:47 PM EDT [facility] - 11/26/2017 4:59 PM EDT [place] Diabetes Association recommends maintenance of Hemoglobin A1C at 7.0% or lower. Goals for Hemoglobin A1C reduction may need to be modified if hypoglycemia is a problem. Kyle [facility]ACKEN[facility] BLOOD ORDERABLES Final Result Performing Organization Address [facility] Co de Phone Number [facility]
[address] [place] [address], * (ABNORMAL) Lipid Panel (11/26/2017 3:30 PM EDT) Total Cholesterol 151 0 - 200 mg/dL 11/26/2017 4:09 PM EDT [facility] Triglycerides 307(H) 0 - 150 mg/dL 11/26/2017 4:09 PM EDT [facility] HDL Cholesterol 32(L) 40 - 60 mg/dL 11/26/2017 4:09 PM EDT [facility] LDL Cholesterol 41 0 - 130 mg/dL 11/26/2017 4:09 PM EDT [facility] Blood Venipuncture / Unknown 11/26/2017 3:30 PM EDT 11/26/2017 3:47 PM EDT [facility] - 11/26/2017 4:09 PM EDT Cholesterol Reference Ranges: Desirable < 200 mg/dL Borderline 200-239 mg/dL High Risk > 239 mg/dL Triglyceride Reference Ranges: Normal < 150 mg/dL Borderline 150-199 mg/dL High 200-499 mg/dL Very High > 499 mg/dL HDL Reference Ranges: Low < 40 mg/dL High > 59 mg/dL LDL Reference Ranges: Optimal < 100 mg/dL Near Optimal 100-129 mg/dL Borderline 130-159 mg/dL High 160-189 mg/dL Very High > 189 mg/dL [facility]ACK[facility] BLOOD ORDERABLES Final Result [facility]
[address] [place] [address], from Last 3 Months or Most Recently Relevant to Health Maintenance Insurance MEDICARE A & B [facility] Advance Directives Documents on File Type Date Recorded Patient Fire Chief'S Aide Expl anation POWER OF WOODWIND REEDS CUTTER - SCAN 11/26/2017 2:46 PM 08/12/2016 * Full Code (Latest Code Status on File) Date Activated Date Inactivated Comments 11/30/2017 12:40 PM 2017 6:09 PM * Full Code Date Activated Date Inactivated Comments 11/27/2017 1:30 PM 11/30/2017 12:40 PM * Full Code Date Activated Date Inactivated Comments 08/13/2016 1:04 PM 08/14/2016 12:31 PM * Full Code Date Activated Date Inactivated Comments 08/12/2016 6:27 PM 08/13/2016 1:04 PM Healthcare Agents on File Name Relationship Healthcare Agent [facility] Communication [facility] Care Surrogate Care Teams Spring Assembler Supervisor Relationship Specialty Start Date End Date Markus Ramirez MD [address] [facility] [address] [place] [id number] PCP - General Adolescent Medicine 10/20/23
[2025-02-04 10:26] LABS: Microscopic, Urine URINE MICROSCOPIC (MICROSCOPIC)
[2025-02-04 11:07] LABS: Albumin Level 5.0 g/dl (3.5-5.0); Anion Gap 13.7 mEq/L (5-15); Blood Urea Nitrogen 28 mg/dl (9-20); Calcium 9.4 mg/dl (8.4-10.2); Carbon Dioxide 22 mmol/L (22.0-30.0); Chloride 109 mmol/L (98-107); Creatinine,Serum 2.40 mg/dl (0.66-1.25); Estimated Glomerular Filt Rate 26 ml/min (>60); GFR (African American) 31 ML/MIN (>60); Glucose 111 mg/dl (74-100); Phosphorous 4.2 mg/dl (2.5-4.5); Potassium 4.7 mmoL/L (3.5-5.1); Sodium 140 mmol/L (136-145)
[2025-02-04 11:12] LABS: Bilirubin,Urine Negative (Negative); Color,Urine YELLOW (Yellow); Glucose,Urine (UA) 3+ (Negative); Ketones,Urine Negative (Negative); Leukocyte Esterase,Urine Negative (Negative); PH,Urine 6.0 (5.0-8.5); Protein,Urine 1+ (Negative); Specific Gravity, Urine 1.015 (1.005-1.030); Urobilinogen,Urine 0.2 EU/dl (0.2)
[2025-02-04 11:23] LABS: Squamous Epithelial Cell,Urine Occasional #/hpf (0-5)
== END 2025-02-04 23:59 | disposition home or self-care (01) ==
LOC: LAB 10:05
PROVIDERS: PCP Internal Medicine Adolescent Medicine; Visit Provider Internal Medicine Nephrology
DX: N18.30 Chronic kidney disease, stage 3 unspecified (principal)
CPT/HCPCS: 36415; 80069; 81001; 82570; 84156

== ENCOUNTER 2025-03-04 08:43 | Outpatient (CLI) | payer MEDICARE, BC, SELFPAY ==
--- OUTSIDE RECORDS SUMMARY | 2025-02-20 10:15 | XMS_ITS | Encounter Summary ---
Author Organization [facility] Address [address] [place] [address] Care Team Providers Care After School Program Teacher Name Role Phone Markus Ramirez MD Primary Care Provider [phone] Reason for Visit * Reason Comments Coronary artery disease involving [place] coronary artery of Encounter Details Date Type Department Care Team (Late st Contact Info) Description 02/20/2025 10:15 AM EDT Office Visit [facility] [address] [facility] [address] [address] Jl Frederick MD [address] [facility] [address] [facility] [[email or web address]] [address] [place] [address] Coronary artery disease involving [place] coronary artery of [place] heart with unstable angina pectoris (Primary Dx); Complete heart block; Essential hypertension; Mixed hyperlipidemia; Current every day smoker; Type 2 diabetes mellitus with hyperglycemia, with long-term current use of insulin Social History Tobacco Use Types Packs/Day Years Used Date Smoking Tobacco: Some Days Cigarettes 1 67.7 Started: 1956 Passive Smoke Exposure: Current Smokeless Tobacco: Never Comments:has cut way back Alcohol Use Standard [...] or training? Not on file Preferred Language Malagasy 01/17/2023 PHQ-2 Answer Date Recorded Retired PHQ-9: Brief Depression Severity Measure Score 0 01/26/2023 Sex and Gender Information Value Date Recorded Sex Assigned at Not on file Legal Sex Male 10:24 AM EDT Gender Identity Not on file Sexual Orientation Not on file documented as of this encounter Last Filed Vital Signs Vital Sign Reading Time Taken Comments Blood Pressure 134/64 02/20/2025 1:14 PM EDT Pulse 79 02/20/2025 1:14 PM EDT Temperature - - Respiratory Rate - - Oxygen Saturation 98% 02/20/2025 1:14 PM EDT Inhaled Oxygen Concentration - - Weight 95 kg (209 lb 8 oz) 02/20/2025 1:14 PM ED T Height 180.3 cm (5' 11 ) 02/20/2025 1:14 PM EDT Body Mass Index 29.22 02/20/2025 1:14 PM EDT documented in this encounter Progress Notes * Jl Frederick MD - 02/20/2025 10:15 AM EDT [facility] Cardiology Consultation H&P Kory Ny [address] [place] [id number] VISIT DATE: 02/20/25 PCP: Markus Ramirez MD [address] [place] [address] [facility] [address] IDENTIFICATION: A 89 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 02/04/2012: N-STEMI; 2.5 x 28 Promus MENA to second OM. Nonobstructive plaque otherwise. Normal EF. 08/12 MENA OM1 - HTR 12/11 MENA OM2, occluded distal lad, cx ([facility]) EF 45% 11/2019 echo ([facility]) EF 35-40% 05/31/21 OSH Eval for Precordial Chest pain - no abnormality appreciated - beyond slight elevation of troponin to .07. Symptomatic bradycardia 08/12 BTK PPM - hanna 02/15 upgrade [address] Dr[address] Bower, left previous leads Hypertension Dyslipidemia. 12/11 151/307/32/41 ? afib - not seen on PM interrogations Xarelto induced GI Diabetes mellitus; onset 2000. CKD 3 baseline 2.0 Infrarenal abdominal aortic aneurysm status post stent and grafting per Dr. Vinson, [facility] Peripheral vascular disease with left greater than right claudication; evaluation per Dr. 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 Garza. 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 Inguinal abcess- [place] 12/11 GIB- 06/12 [facility] Renal stone 2018-[facility]: Fu vascular disease Allergies Allergies Allergen Reactions Amoxicillin Itching Lipitor [Atorvastatin] Myalgia MYALGIA Penicillins Hives and Itching ITCHING Plavix [Clopidogrel Bisulfate] GI Intolerance METAL TASTE IN MOUTH THAT CAUSES WEIGHT LOSS Current Medications Current Outpatient Medications: amLODIPine (NORVASC) 10 MG tablet, Take 1 tablet by mouth Daily., Disp: 30 tablet, Rfl: 0 Ascorbic Acid (VITAMIN C PO), Take 500 mg by mouth Daily., Disp: , Rfl: aspirin 81 MG EC tablet, Take 1 tablet by mouth Daily., Disp: 90 tablet, Rfl: 3 carvedilol (COREG) 12.5 MG tablet, Take 1 tablet by mouth Every 12 (Twelve) Hours. (Patient taking differently: Take 1 tablet by mouth 2 (Two) Times a Day With Meals.), Disp: 60 tablet, Rfl: 0 Cholecalciferol 25 MCG (1000 UT) tablet, Take 1 tablet by mouth Daily., Disp: , Rfl: furosemide (LASIX) 20 MG tablet, Take 0.5 tablets by mouth Daily. 0.5 tablet daily, Disp: , Rfl: glipiZIDE (GLUCOTROL) 5 MG tablet, Take 1 tablet by mouth Daily., Disp: , Rfl: HYDROcodone-acetaminophen (NORCO) 7.5-325 MG per tablet, Take 1 tablet by mouth Every 6 (Six) HoursAs Needed for Moderate Pain. Takes 2 tabs qam, Disp: , Rfl: isosorbide mononitrate (IMDUR) 30 MG 24 hr tablet, Take 1 tablet by mouth Daily., Disp: 30 tablet, Rfl: 11 Multiple Vitamins-Minerals (CENTRUM SILVER PO), Take 1 tablet by mouth Daily., Disp: , Rfl: niacin 500 MG tablet, Take 1 tablet by mouth 2 (Two) Times a Day With Meals., Disp: , Rfl: nitroglycerin (NITROSTAT) 0.4 MG SL tablet, Place 1 tablet under the tongue Every 5 (Five) Minutes As Needed (chest pain)., Disp: 25 tablet, Rfl: 5 Franklin-3 Fatty Acids (FISH OIL) 1000 MG capsule capsule, Take 1 capsule by mouth 2 (Two) Times a DayWith Meals. 2 tablets twice daily, Disp: , Rfl: omeprazole (priLOSEC) 20 MG capsule, Take 1 capsule by mouth Every 12 (Twelve) Hours., Disp: , Rfl: pantoprazole (PROTONIX) 40 MG EC tablet, Take 1 tablet by mouth Daily., Disp: , Rfl: polyethylene glycol (MIRALAX) packet, Take 17 g by mouth Daily., Disp: , Rfl: rosuvastatin (CRESTOR) 10 MG tablet, Take 1 tablet by mouth Every Night., Disp: 30 tablet, Rfl: 0 Zinc Sulfate (ZINC 15 PO), Take 25 mg by mouth Daily., Disp: , Rfl: History of Present Illness HPI Kory Ny is a 89 y.o. year old male with the above mentioned PMH who presents for follow-up. No new cardiac complaints. He has 50 m calf claudication bilaterally. He continues to smoke less than 1 pack of cigarettes daily Vitals: 02/20/25 1314 BP: 134/64 BP Location: Right arm Patient Position: Sitting Cuff Size: Adult Pulse: 79 SpO2: 98% Weight: 95 kg (209 lb 8 oz) Height: 180.3 cm (71 ) Body mass index is 29.22 kg/m??. PHYSICAL EXAMINATION: Constitutional: Appearance: Healthy appearance. Not in distress. Neck: Vascular: No JVR. JVD normal. Pulmonary: Effort: Pulmonary effort is normal. Breath sounds: Normal breath sounds. No wheezing. No rhonchi. No rales. Chest: Chest wall: Not tender to palpatation. Cardiovascular: PMI at left midclavicular line. Normal rate. Regular rhythm. Normal S1. Normal S2. Murmurs: There is a systolic murmur. No gallop. No click. No rub. Pulses: Decreased pulses. Edema: Peripheral edema absent. Abdominal: General: Bowel sounds are normal. Palpations: Abdomen is soft. Tenderness: There is no abdominal tenderness. Musculoskeletal: Normal range of motion. General: No tenderness. Skin: General: Skin is warm and dry. Neurological: General: No focal deficit present. Mental Status: Alert and oriented to person, place and time. Diagnostic Data: Procedures Lab Results Component Value Date TRIG 307 (H) 11/26/2017 HDL 32 (L) 11/26/2017 Lab Results Component Value Date GLUCOSE 167 (H) 01/17/2023 BUN 26 (H) 01/17/2023 CREATININE 1.89 (H) 01/17/2023 NA 137 01/17/2023 K 5.0 01/17/2023 CL 101 01/17/2023 CO2 21.0 (L) 01/17/2023 Lab Results Component Value Date HGBA1C 6.60 (H) 11/26/2017 Lab Results Component Value Date WBC 7.13 01/17/2023 HGB 14.3 01/17/2023 HCT 44.4 01/17/2023 PLT 172 01/17/2023 ASSESSMENT: No diagnosis found. PLAN: CAD with stable angina current continued observation. If his recurrent anginal equivalent left heart catheterization could be offered at any point. PVD with stable claudication no limb threatening issue at current recommended smoking cessation Hypertension controlled current amlodipine carvedilol isosorbide Mixed dyslipidemia controlled on statin therapy Smoking cessation counseling greater than 5 minutes the office today No ref. provider found, thank you for referring Mr. Ny for evaluation. I have forwarded my electronically generated recommendations to you for review. Please do not hesitate to call with any questions. Jl Frederick MD, [facility] documented in this encounter Plan of Treatment Upcoming Encounters Date Type Department Care Team (Late st Contact Info) Description 11/18/2025 9:15 AM EDT Office Visit [facility] [address] [facility] [address] [place] [id number] William Bower MD [address] [facility] [address] [place] [address] 07/23/2026 9:45 AM EST Office Visit [facility] [address] [place] [address] [place] [address] Jl Frederick MD [address] [facility] [facility] [address] [place], [place] [id number] Scheduled Procedures Name Priority Associated Diagnoses Date/Ti me CARDIAC CATHETERIZATION NSTEMI (non-ST elevated myocardial infarction) documented as of this encounter Visit Diagnoses Diagnosis Coronary artery disease involving [place] coronary artery of [place] heart with unstable angina pectoris- Primary Complete heart block Atrioventricular block, complete Essential hypertension Unspecified essential hypertension Mixed hyperlipidemia Current every day smoker Type 2 diabetes mellitus with hyperglycemia, with long-term current use of insulin documented in this encounter Care Teams After School Program Teacher Relationship Specialty Start Date End Date Markus Ramirez MD [address] [facility] [address] [place] [address] PCP - General Adolescent Medicine 10/20/23 documented as of this encounter
--- NOTE | 2025-03-04 08:47 | CA_ITS ---
FINAL REPORT CLINICAL HISTORY: CKD III, HTN COMPARISON: None FINDINGS: Overall image quality is somewhat limited by aortoiliac stents. Aorta velocity: 51 cm/sec Right kidney: 10.3 cm. No evidence of hydronephrosis or mass. Right intrarenal RI: 0.61-0.70 Right renal artery velocity: 132 cm/sec. Right RAR (Renal artery-Aortic Ratio): 2.6 Left Kidney: 10.4 cm. No evidence of hydronephrosis or mass. Left intrarenal RI: 0.68-0.71 Left renal artery velocity: 118 cm/sec. Left RAR (Renal Artery-Aortic Ratio): 2.3 IMPRESSION: No evidence of significant renal artery stenosis, although exam is limited by aortoiliac stents with relatively low flow and overlying bowel gas. CT angiogram or postcontrast MR angiogram would be more sensitive for evaluation of possible renal artery stenosis. Reviewed, Interpreted and Dictated by Ilda Mejía MD Transcribed by Naina Le Authenticated and [facility]
--- OUTSIDE RECORDS SUMMARY | 2025-03-04 08:50 | XMS_ITS | Encounter Summary ---
Author Organization [facility] Address [address] [place] [id number] Care Team Providers Care Brake Repair Supervisor Name Role Phone Markus Ramirez MD Primary Care Provider [phone] Encounter Details Date Type Department Care Team (Latest Contact Info) Description 02/19/2025 Travel Social History Tobacco Use Types Packs/Day Years [...] or training? Not on file Preferred Language Luxembourger 01/17/2023 PHQ-2 Answer Date Recorded Retired PHQ-9: Brief Depression Severity Measure Score 0 01/26/2023 Sex and Gender Information Value Date Recorded Sex Assigned at Not on file Legal Sex Male 10:24 AM EDT Gender Identity Not on file Sexual Orientation Not on file documented as of this encounter Plan of Treatment Upcoming Encounters Date Type Department Care Team (Late st Contact Info) Description 11/18/2025 9:15 AM EDT Office Visit [facility] [address] [facility] [address] [place] [address] William Bower MD [address] [facility] [address] [place] [address] 07/23/2026 9:45 AM EST Office Visit [facility] [address] [place] [address] [place] [address] Jl Frederick MD [address] [facility] [address] [place], [place] [id number] Scheduled Procedures Name Priority Associated Diagnoses Date/Ti me CARDIAC CATHETERIZATION NSTEMI (non-ST elevated myocardial infarction) documented as of this encounter Visit Diagnoses Not on filedocumented in this encounter Care Teams Brake Repair Supervisor Relationship Specialty Start Date End Date Markus Ramirez MD [address] [facility] [address] [place] [address] PCP - General Adolescent Medicine 10/20/23 documented as of this encounter
--- OUTSIDE RECORDS SUMMARY | 2025-03-04 08:50 | XMS_ITS | Clinical Summary ---
Author Organization [facility] Address [address] [place] [id number] Care Team Providers Care Seam Rubber Name Role Phone Markus Ramirez MD Primary Care Provider [phone] Allergies Active Allergy Reactions Criticality Noted Date [...] MG EC tabletIndication s:Coronary artery disease involving little river coronary artery of little river heart without angina pectoris Take 1 tablet by mouth Daily. 90 tablet 3 07/27/19 17 Active rosuvastatin (CRESTOR) 10 MG tablet Take 1 tablet by mouth Every Night. 30 tablet 8 1:49 PM EDT 12/02/19 18 Active carvedilol (COREG) 12.5 MG tablet Take 1 tablet by mouth Every 12 (Twelve) Hours. 60 tablet 8 1:49 PM EDT 12/02/19 18 Active Additional Information Patient taking differently:12.5 mg Oral2 Times Daily With Meals, Informant: Self, Reported on 02/20/2025 amLODIPine (NORVASC) 10 MG tabletIndication s:Essential hypertension Take 1 tablet by mouth Daily. 30 tablet 8 1:49 PM EDT 12/03/19 18 Active Sheridan-3 Fatty Acids (FISH OIL) 1000 MG capsule [...] tablet by mouth Daily. 30 tablet 11 06/04/20 21 Active nitroglycerin (NITROSTAT) 0.[address] 1 tablet under the tongue Every 5 (Five) Minutes As Needed (chest pain). 25 tablet 5 12/21/19 23 Active Cholecalciferol 25 MCG (1000 UT) tablet Take 1 tablet by mouth Daily. Active omeprazole (priLOSEC) 20 MG capsule Take 1 capsule by mouth Every 12 (Twelve) Hours. 07/19/19 25 Active albuterol sulfate HFA 108 (90 Base) MCG/ACT inhaler Inhale 2 puffs Every 4 (Four) Hours As Needed for Wheezing. 025 Discontinue d(*Therapy completed) metFORMIN (GLUCOPHAGE) 500 MG tablet Take 1 tablet by mouth every night at bedtime. 09/04/19 25 025 Discontinue d(Patient Reported Not Taking) Active Problems Problem Noted Date Diagnosed Date Cardiomyopathy 01/26/2023 Overview (01/26/2023): Echo 05-12-22: Calculated left ventricular EF = 30% Left ventricular ejection fraction appears to be 26 - 30%. 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 Residual bifurcation LCX/OM2 disease to be treated [...] (11/28/2017): Groin infection noted prior to planned LHC, 11/27/2017 Angina pectoris 11/27/2017 11/28/2017 Angina pectoris 11/24/2017 11/27/2017 Overview (11/24/2017): Added automatically from request for surgery [id number] Unstable angina 11/24/2017 11/30/2017 Overview (11/29/2017): Added automatically from request for surgery [id number] Coronary artery disease invo lving little river coronary artery of little river heart with angina pectoris 08/12/2016 11/27/2017 Overview (08/13/2016): Cardiac catheterization for NSTEMI (08/13/2016): Severe 2 vessel coronary artery disease involving a 70% ISR lesion and a 95% stenosis at distal edge of previous stent in OM2. Additionally there was 100% chronic total occlusion of the proximal RCA. 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 07/27/2016 Overview (06/16/2016): Accelerated junctional rhythm 2015, asymptomatic Encounters Date Type Department Care Team Description 02/20/2025 10:15 AM EDT Office Visit [facility] [address] [place] [address] [place] [address] Jl Frederick MD Coronary artery disease involving little river coronary artery of little river heart with unstable angina pectoris (Primary Dx); Complete heart block; Essential hypertension; Mixed hyperlipidemia; Current every day smoker; Type 2 diabetes mellitus with hyperglycemia, with long-term current use of insulin 02/19/2025 Travel from Last 3 Months Immunizations Immunization Administration Dates Next Due Fluad Quad 65+ 03/19/2021 Tdap 09/09/2020 Family History Medical History Relation Name Comments No Known Problems Brother 1 Youngest, of heart condition. Patient unsure No Known Problems Brother 2 Cancer Father Heart disease Mother Munira Relation Name Status Comments Brother 1 Brother 2 Brother 3 Alive Father Mother Munira Social History Tobacco Use Types Packs/Day Years [...] or training? Not on file Preferred Language Bolivian 01/17/2023 PHQ-2 Answer Date Recorded Retired PHQ-9: [...] Pulse 79 02/20/2025 1:14 PM EDT Temperature 36.6 C (97.9 F) 01/26/2023 12:00 PM EDT Respiratory Rate 16 01/26/2023 12:00 PM EDT Oxygen Saturation 98% 02/20/2025 1:14 PM EDT Inhaled Oxygen Concentration - - Weight 95 kg (209 lb 8 oz) 02/20/2025 1:14 PM ED T Height 180.3 cm (5' 11 ) 02/20/2025 1:14 PM EDT Body Mass Index 29.22 02/20/2025 1:14 PM EDT Plan of Treatment Upcoming Encounters Date Type Department Care Team (Late st Contact Info) Description 11/18/2025 9:15 AM EDT Office Visit [facility] [address] [place] [id number] William Bower MD [address] [facility] [address] [place], [place] [id number] 07/23/2026 9:45 AM EST Office Visit [facility] [address] [place] [address] [place] [address] Jl Frederick MD [address] [place] [address] Scheduled Procedures Name Priority Associated Diagnoses Date/Ti [...] 08/2017, 07/26/2016, Additional history exists COVID-19 Vaccine ( - 2024-2 6 season) 2025 06/29/2022, 11/26/2021, 03/10/2021, Additional history exists INFLUENZA VACCINE 03/26/2025 05/04/2024, , 03/17/2023, Additional history exists TDAP/TD VACCINES (2 - Td or Tdap) 09/09/2030 021 Medical Devices Implanted Type Area Deicer Tester Device Identifier Shelf Expiration Date Model / Serial / Lot Env Antibac Tyrx Neuro Abs - [id number] Implanted:Qty : 1 on 01/26/2023 by William Bower MD at [facility] Implant Left: Heart MEDTRONIC 10/21/2023 [id number] / / [id number] Hemost Abs Surgicel Fibrillar 1x2 - [id number] Implanted:Qty : 1 on 01/26/2023 by William Bower MD at [facility] Implant N/A: Chest ETHICON DIV OF J AND J 07/26/2025 1961 / / [id number] Ld Pm Solia S 60 - [id number] - [id number] Implanted:Qty : 1 on 07/26/2016 by Mehdi Richardson DO at [facility] Lead Left: Heart BIOTRONIK 05/25/2018 [id number] / [id number] / Ld Pm Solia S 53 - [id number] - [id number] Implanted:Qty : 1 on 07/26/2016 by Mehdi Richardson DO at [facility] Lead Left: Heart BIOTRONIK 04/25/2018 [id number] / [id number] / Ld Pm Sentus Promri Otw Qp L85/49 - [id number] Implanted:Qty : 1 on 01/26/2023 by William Bower MD at [facility] Lead Left: Heart BIOTRONIK 03/25/2024 [id number] / / [id number] Ld Pm Solia S 53 - [id number] Implanted:Qty : 1 on 01/26/2023 by William Bower MD at [facility] Lead Left: Heart BIOTRONIK 10/23/2024 [id number] / / [id number] Gen Pm Eluna Dr T Promri - [id number] - [id number] Implanted:Qty : 1 on 07/26/2016 by Mehdi Richardson DO at [facility] Pacemaker Left: Chest BIOTRONIK 11/23/2017 [id number] / [id number] / Gen Pm [id number] Hf-T Qp Raw Sampler - [id number] Implanted:Qty : 1 on 01/26/2023 by William Bower MD at [facility] Pacemaker Left: Heart BIOTRONIK 04/25/2024 [id number] / / [id number] Stent Absorb Gt1 Bvs Rx 6f 3x18mm - [id number] Implanted:Qty : 1 on 08/13/2016 by Joseph Wills IV, MD at [facility] Stent ELLINGTON VASCULAR [id number] / / Stent Xience Alpine Trey Rx 2.75g91en - [id number] Implanted:Qty : 1 on 08/13/2016 by Joseph Wills IV, MD at [facility] ELLINGTON VASCULAR [id number] / / Stent Xience Alpine Trey Rx 2.39h87yy - [id number] Implanted:Qty : 1 on 11/30/2017 by Joseph Wills IV, MD at [facility] [employer] VASCULAR 03/06/2020 [id number] / / [id number] Stent Xience Alpine Trey Rx 4.49c09os - [id number] Implanted:Qty : 1 on 11/30/2017 by Joseph Wills IV, MD at [facility] [employer] VASCULAR 11/29/2019 [id number] / / [id number] Procedures Procedure Name Priority Date/Time Associated Diagnosis Comments REMOTE DEVICE CHECK 12/24/2024 1 2:53 AM EDT HEMOGLOBIN A1C STAT 11/26/2017 3:30 PM EDT LIPID PANEL STAT 11/26/2017 3:30 PM EDT from Last 3 Months or Most Recently Relevant to Health Maintenance Results * Remote Device Check (12/24/2024 12:53 AM EDT) Date Time Interrogation Session [id number] [facility] Type Interrogation Session RemoteScheduled [facility] Implantable Pulse Generator Deicer Tester Biotronik [facility] Implantable Pulse Generator Type SKI TOW OPERATOR-P [facility] Implantable Pulse Generator Model Edora 8 HF-T QP [facility] Implantable Pulse Generator Serial Number [id number] [facility] Implantable Pulse Generator Implant Date 20230126 [facility] Battery Remaining Percentage 80.00 % [facility] Battery Status MOS [facility] Valerio Statistic RA Percent Paced 94.00 [facility] Valerio Statistic RV Percent Paced 100.00 [facility] SKI TOW OPERATOR Statistic LV Percent Paced 100.00 [facility] SKI TOW OPERATOR Statistic SKI TOW OPERATOR Percent Paced 100.00 [facility] Atrial Tachy Statistic AT/AF Luke Percent 0.00 [facility] Lead Channel RA Sensing Intrinsic Amplitude 1.600 [facility] Lead Channel RA Impedance Value 546 [facility] Lead Channel RA Pacing Threshold Amplitude 1.300 [facility] Lead Channel RA Pacing Threshold Pulse Width 0.4 [facility] Lead Channel RA Measurements Date and Time 20241224 [facility] Lead Channel Setting RA Pacing Amplitude 2.000 [facility] Lead Channel Setting RA Pacing Pulse Width 0.4 [facility] Lead Channel RV Sensing Intrinsic Amplitude 15.800 [facility] Lead Channel RV Impedance Value 566 [facility] Lead Channel RV Pacing Threshold Amplitude 0.800 [facility] Lead Channel RV Pacing Threshold Pulse Width 0.4 [facility] Lead Channel RV Measurements Date and Time 20241224 [facility] Lead Channel Setting RV Pacing Amplitude 2.000 [facility] Lead Channel Setting RV Pacing Pulse Width 0.4 [facility] Lead Channel LV Sensing Intrinsic Amplitude 9.000 [facility] Lead Channel LV Impedance Value 741 [facility] Lead Channel LV Pacing Threshold Amplitude 2.500 [facility] Lead Channel LV Pacing Threshold Pulse Width 0.4 [facility] LV Lead Channel Measurements Date and Time 20241224 [facility] Lead Channel Setting LV Pacing Amplitude 3.000 [facility] Lead Channel Setting LV Pacing Pulse Width 0.4 [facility] Valerio Setting Mode (NBG Code) DDD-CLS [facility] Ventricular chambers paced during SKI TOW OPERATOR pacing. BiV [facility] Valerio Setting Lower Rate Limit 70 [facility] Valerio Setting AT Mode Switch Rate 160 [facility] Valerio Setting Maximum Tracking Rate 130 [facility] Vaelrio Setting Maximum Sensor Rate 120 [facility] Valerio Setting PAV Delay 155 [facility] Valerio Setting TONNY Delay 125 [facility] SKI TOW OPERATOR LV-RV Delay 0 [facility] Lead Channel Setting RA Sensing Polarity Bipolar [facility] Lead Channel Setting RV Sensing Polarity Bipolar [facility] Lead Channel Setting LV Sensing Polarity Bipolar [facility] Lead Channel Setting RA Pacing Polarity Bipolar [facility] Lead Channel Setting RV Pacing Polarity Bipolar [facility] Lead Channel Setting LV Pacing Polarity Bipolar [facility] Lead Channel RA Pacing Threshold Polarity Bipolar [facility] Lead Channel RV Pacing Threshold Polarity Bipolar [facility] Lead Channel LV Pacing Threshold Polarity Bipolar [facility] 12/24/2024 12:5 3 AM EDT William Bower MD CV IMPLANTABLE CARDIAC DEVICE Fi nal Result [facility] * (ABNORMAL) Hemoglobin A1c (11/26/2017 3:30 PM EDT) Hemoglobin A1C 6.60(H) 4.80 - 5.60 % 11/26/2017 4:59 PM EDT [facility] Blood Venipuncture / Unknown 11/26/2017 3:30 PM EDT 11/26/2017 3:47 PM EDT Narrative [facility] - 11/26/2017 4:59 PM EDT The [place] [employer] recommends maintenance of Hemoglobin A1C at 7.0% or lower. Goals for Hemoglobin A1C reduction may need to be modified if hypoglycemia is a problem. Kyle MACKENZ[facility] BLOOD ORDERABLES Final Result [facility]
[address] [place] [address], * (ABNORMAL) Lipid Panel (11/26/2017 3:30 PM EDT) Total Cholesterol 151 0 - 200 mg/dL 11/26/2017 4:09 PM EDT [facility] Triglycerides 307(H) 0 - 150 mg/dL 11/26/2017 4:09 PM EDT [facility] HDL Cholesterol 32(L) 40 - 60 mg/dL 11/26/2017 4:09 PM EDT [facility] LDL Cholesterol 41 0 - 130 mg/dL 11/26/2017 4:09 PM EDT [facility] Blood Venipuncture / Unknown 11/26/2017 3:30 PM EDT 11/26/2017 3:47 PM EDT Narrative [facility] - 11/26/2017 4:09 PM EDT Cholesterol [...] Kyle [facility]ACK[facility] BLOOD ORDERABLES Final Result [facility]
[address] [place] [address], from Last 3 Months or Most Recently Relevant to Health Maintenance Insurance MEDICARE A & B Member Subscriber Plan / Payer (Ef fective 2001-Present) Name:Kory Ny Member ID:[id number] Relation to Subscriber:Self Name:Kory Ny Subscriber ID:[id number] Payer ID:[id number] Group ID:Not on file Type:Not on file Address: [address] Member Subscriber Plan / Payer (Ef fective 2016-Present) Name:Kory yN Relation to Subscriber:Self Name:Kory Ny Payer ID:[id number] (NA) Group ID:[id number] Type:MEDICARE SUPPLEMENT Address: [facility] [id number] [place] [id number] Advance Directives Documents on File Type Date Recorded 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
--- OUTSIDE RECORDS SUMMARY | 2025-03-04 08:50 | XMS_ITS | Encounter Summary ---
Author Organization [facility] Address [address] [place] [address] Care Team Providers Care Supervisor Ornamental Ironworking Name Role Phone Markus Ramirez MD Primary Care Provider [phone] Reason for Referral * Consultation (Routine) - Authorized Specialty Diagnoses / Procedures Referred By Contac t Referred To Contact Nephrology Diagnoses Nonspecific abnormal results of kidney function study Hypercalcemia Markus Ramirez MD [address] [place] [address] Phone: tel: fax: [facility] [address] [place] [address] Phone: tel: fax: Referral ID Status Reason Start Date Expiration Date Visits Requested Visits Authorized [id number] Authorized Specialty Services Required 08/19/2024 02/18/2026 1 1 Encounter Details Date Type Department Care Team (Late st Contact Info) Description 08/19/2024 Community [facility] [address] [place] [address] Markus Ramirez MD [address] [place] [address] Nonspecific abnormal results of kidney function study [...] Hypercalcemia documented in this encounter Care Teams Supervisor Ornamental Ironworking Relationship Specialty Start Date End Date Markus Ramirez MD [address] [place] [address] PCP - General Internal Medicine 08/21/24 documented as of this encounter
--- OUTSIDE RECORDS SUMMARY | 2025-03-04 08:50 | XMS_ITS | Clinical Summary ---
Author Organization [facility] Address [address] [place] [address] Care Team Providers Care Otolaryngology Rep Name Role Phone Markus Ramirez MD Primary Care Provider [phone] Social History Tobacco Use Types Packs/Day Years Used Date Smoking Tobacco: Never Assessed Sex and Gender Information Value Date Recorded Sex Assigned at Not on file Legal Sex Male 6:30 PM EDT Gender Identity Not on file Sexual Orientation Not on file Plan of Treatment Health Maintenance Due Date Last Done Comments [facility]-Depression Screening 1936 [facility]-/Child/Adol SDOH Screenings 1936 [facility]- SDOH Screenings 1954 [facility]-Adult SDOH Screenings 1954 [facility]-Pneumococcal Vaccine: 50+ Years (1 of 1 - PCV) 1986 [facility]-Zoster Vaccines (1 of 2) 1986 [facility]-RSV Vaccine: 60+ Years or (1 - 1-dose 75+ series) 12/02/2011 [id number] Vaccine (3 - 2024- season) 2025 06/29/2022, 03/10/2021 [facility]-Influenza Vaccine (#1) 02/24/202505/04, 03/19/2021 [...] to complete this topic Insurance [place] [address] MEDICARE Member Subscriber Plan / Payer (Ef fective 2001-Present) Name:Kory Ny Member ID:[id number] Relation to Subscriber:Self Name:Kory Ny Subscriber ID:[id number] Payer ID:MEDICARE Group ID:Not on file Type:Medicare Address: [address] Care Teams Otolaryngology Rep Relationship Specialty Start Date End Date Markus Ramriez MD [address] [place] [address] PCP - General Internal Medicine 08/21/24
--- OUTSIDE RECORDS SUMMARY | 2025-03-04 08:50 | XMS_ITS | Clinical Summary ---
Author Organization [facility] Address [address] [facility] [address] [place] [id number] Phone Care Team Providers Care Stoper Name Role Phone Nathan WING, [place] [ ] Conditions or Problems Problem Name Problem Code Onset Date Status Entry Date Provider Comment Standard Description Annotate Nicotine dependence, cigarettes F17.210 (ICD-10-CM ) 12/13 Active 12/13 Dina Manuel Nicotine dependence, cigarettes, uncomplicated Abscess, groin 68545928 (SNOMED CT) 12/13 Active 12/13 Dina Manuel Abscess of groin Cellulitis, groin 16372342 (SNOMED CT) 12/13 Active 12/13 Dina Manuel Cellulitis of groin Cellulitis/ab scess, scrotal 29054330 (SNOMED CT) 12/13 Active 12/13 Dina Manuel Cellulitis of scrotum Coag neg staph infection B95.7 (ICD-10-CM ) 12/13 Active 12/13 Dina Manuel Other staphylococcus as the cause of diseases classified elsewhere Enterococcus infection 871870178 (SNOMED CT) 12/13 Active 12/13 Dina Manuel Infection caused by Enterococcus E. coli infection, non-shiga toxing-produc ing B96.29 (ICD-10-CM ) 12/13 Active 12/13 Dina Manuel Other Escherichia coli [E. 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 014465622 (SNOMED CT) 12/13 Active 12/13 Dina Jackson Peripheral vascular disease DM II with diabetic PVD 169367369 (SNOMED CT) 12/13 Active 12/13 Dina Jackson Peripheral vascular disease Benign Essential Hypertension 5382355 (SNOMED CT) 12/13 Active 12/13 Dina Jackson Benign essential hypertension Medications Medication Instructions Start Date Stop Date Generic Name NDC Provider NIACIN 500 MG TABS pobid qhn 5 NIACIN 47985429319 Marta Ferris MIRALAX ORAL PACKET 1 dose popid 5 POLYETHYLENE GLYCOL 3350 60366312935 Marta JAMES NATURAL FISH OIL 1000 MG CAPS 2 capsules pobid 5 OMEGA-3 FATTY ACIDS 01474561059 Marta Ferris NITROSTAT 0.4 MG SUBL as instructed 9 NITROGLYCERIN 89209695358 Marta Ferris ZANTAC 150 MG ORAL TABLET 1 tab every morning 9 RANITIDINE HCL 45749018768 Marta Ferris CRESTOR 10 MG TABS 1 tab every night 9 ROSUVASTATIN CALCIUM 42893812333 Lizzie Velázquez ZANTAC 150 MG ORAL TABLET 1 tab every morning 9 RANITIDINE HCL 39090276283 Lizzie Velázquez EFFIENT 10 MG TABS 1 tab every morning 9 PRASUGREL HCL 77398352185 Lizzie Velázquez NITROSTAT 0.4 MG SUBL as instructed 9 NITROGLYCERIN 55577471957 Lizzie Velázquez CENTRUM SILVER TABS 1 tab daily 9 MULTIPLE VITAMINS-MINERAL S 01428424425 Lizzie Velázquez NORCO 7.5-325 MG ORAL TABLET 1 tab every 6 hours as needed for moderate pain 9 HYDROCODONE-ACET AMINOPHEN 58817003008 Lizzie Velázquez GLIPIZIDE 5 MG TABS daily 9 GLIPIZIDE 94379594432 Lizzie Velázquez COREG 12.5 MG TABS 1 tab every 12 hours 9 CARVEDILOL 73061088501 Lizzie Velázquez ADULT ASPIRIN EC LOW STRENGTH 81 MG ORAL TABLET DELAYED RELEASE 1 tab daily 9 ASPIRIN 65916889155 Lizzie Velázquez AMLODIPINE BESYLATE 10 MG TABS 1 tab daily 9 AMLODIPINE BESYLATE 75916161191 Lizzie Velázquez Medications Administered No information available. 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
--- NOTE | 2025-03-04 09:24 | US_ITS ---
FINAL REPORT TECHNIQUE: Sonographic images of the kidneys and retroperitoneum were obtained in the longitudinal and transverse planes. CLINICAL HISTORY: htn FINDINGS: The right kidney measures 10.4 cm in pzae-ws-eylt length. No hydronephrosis, mass, or stone. There is mild cortical thinning. The left kidney measures 9.9 cm in lywr-pn-unei length. No hydronephrosis, mass, or stone. There is mild cortical thinning. IMPRESSION: Mild cortical thinning bilaterally. Reviewed, Interpreted and Dictated by Ilda Mejía MD Transcribed by Zahira Spencer Authenticated and [facility]
== END 2025-03-04 23:59 | disposition home or self-care (01) ==
LOC: RT 08:44
PROVIDERS: PCP Internal Medicine Adolescent Medicine; Visit Provider Internal Medicine Nephrology
DX: N28.89 Other specified disorders of kidney and ureter (principal); I12.9 Hypertensive chronic kidney disease with stage 1 through stage 4 chronic kidney disease, or unspecified chronic kidney disease; N18.30 Chronic kidney disease, stage 3 unspecified
CPT/HCPCS: 76770; 93976

== ENCOUNTER 2025-05-05 07:58 | Outpatient (CLI) | payer MEDICARE, BC, SELFPAY ==
[2025-05-05 08:03] LABS: Microscopic, Urine URINE MICROSCOPIC (MICROSCOPIC)
--- OUTSIDE RECORDS SUMMARY | 2025-05-05 08:04 | XMS_ITS | Clinical Summary ---
Author Organization [facility] Address [address] [place] [id number] Phone Care Team Providers Care Molecular Biology Professor Name Role Phone Nathan WING, [place] [phone] [ ] Conditions or Problems Problem Name Problem Code Onset Date Status Entry Date Provider Comment Standard Description Annotate Nicotine dependence, cigarettes F17.210 (ICD-10-CM ) 12/13 Active 12/13 Dina Manuel Nicotine dependence, cigarettes, uncomplicated Abscess, groin 64915346 (SNOMED CT) 12/13 Active 12/13 Dina Manuel Abscess of groin Cellulitis, groin 29141306 (SNOMED CT) 12/13 Active 12/13 Dina Manuel Cellulitis of groin Cellulitis/ab scess, scrotal 76544349 (SNOMED CT) 12/13 Active 12/13 Dina Manuel Cellulitis of scrotum Coag neg staph infection B95.7 (ICD-10-CM ) 12/13 Active 12/13 Dina Manuel Other staphylococcus as the cause of diseases classified elsewhere Enterococcus infection 220443784 (SNOMED CT) 12/13 Active 12/13 Dina Manuel Infection caused by Enterococcus E. coli infection, non-shiga toxing-produc ing B96.29 (ICD-10-CM ) 12/13 Active 12/13 Dina Manuel Other Escherichia coli [E. 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 234483325 (SNOMED CT) 12/13 Active 12/13 Dina Jackson Peripheral vascular disease DM II with diabetic PVD 056509901 (SNOMED CT) 12/13 Active 12/13 Dina Jackson Peripheral vascular disease Benign Essential Hypertension 5761102 (SNOMED CT) 12/13 Active 12/13 Dina Jackson Benign essential hypertension Medications Medication Instructions Start Date Stop Date Generic Name NDC Provider NIACIN 500 MG TABS pobid qhn 5 NIACIN 97370763450 Marta Ferris MIRALAX ORAL PACKET 1 dose popid 5 POLYETHYLENE GLYCOL 3350 19667601835 Marta JAMES NATURAL FISH OIL 1000 MG CAPS 2 capsules pobid 5 OMEGA-3 FATTY ACIDS 83509169441 Marta Ferris NITROSTAT 0.4 MG SUBL as instructed 9 NITROGLYCERIN 44923741973 Marta Ferris ZANTAC 150 MG ORAL TABLET 1 tab every morning 9 RANITIDINE HCL 41332541638 Marta Ferris CRESTOR 10 MG TABS 1 tab every night 9 ROSUVASTATIN CALCIUM 59370051064 Lizzie Velázquez ZANTAC 150 MG ORAL TABLET 1 tab every morning 9 RANITIDINE HCL 71094389400 Lizzie Velázquez EFFIENT 10 MG TABS 1 tab every morning 9 PRASUGREL HCL 13362713089 Lizzie Velázquez NITROSTAT 0.4 MG SUBL as instructed 9 NITROGLYCERIN 86676355792 Lizzie Velázquez CENTRUM SILVER TABS 1 tab daily 9 MULTIPLE VITAMINS-MINERAL S 90491562645 Lizzie Velázquez NORCO 7.5-325 MG ORAL TABLET 1 tab every 6 hours as needed for moderate pain 9 HYDROCODONE-ACET AMINOPHEN 67238599449 Lizzie Velázquez GLIPIZIDE 5 MG TABS daily 9 GLIPIZIDE 93355160409 Lizzie Velázquez COREG 12.5 MG TABS 1 tab every 12 hours 9 CARVEDILOL 11699837472 Lizzie Velázquez ADULT ASPIRIN EC LOW STRENGTH 81 MG ORAL TABLET DELAYED RELEASE 1 tab daily 9 ASPIRIN 95211772588 Lizzie Velázquez AMLODIPINE BESYLATE 10 MG TABS 1 tab daily 9 AMLODIPINE BESYLATE 73271735727 Lizzie Velázquez Medications Administered No information available. 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 PAT E-MAIL [email or web address] patient's e-mail address External Other: Patient selma rivas update - EmailStatus, [facility] ... 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
--- OUTSIDE RECORDS SUMMARY | 2025-05-05 08:04 | XMS_ITS | Clinical Summary ---
Author Organization [facility] Address [address] [place] [address] Care Team Providers Care Wood Patternmaker Apprentice Name Role Phone Markus Ramirez MD Primary Care Provider [phone] Social History Tobacco Use Types Packs/Day Years [...] or (1 - 1-dose 75+ series) 12/02/2011 [id number] Vaccine (3 - 2024- season) 2025 06/29/2022, [...] to complete this topic Insurance [place] [address] MEDICARE Member Subscriber Plan / Payer (Ef fective 2001-Present) Name:Kory Ny Member ID:[id number] Relation to Subscriber:Self Name:Kory Ny Subscriber ID:[id number] Payer ID:MEDICARE Group ID:Not on file Type:Medicare Address: [address] Care Teams Wood Patternmaker Apprentice Relationship Specialty Start Date End Date Markus Ramirez MD [address] [place] [address] PCP - General Internal Medicine 08/21/24
--- OUTSIDE RECORDS SUMMARY | 2025-05-05 08:04 | XMS_ITS | Clinical Summary ---
Author Organization [facility] Address [address] [place] [id number] Care Team Providers Care Inspector Salvage Name Role Phone Markus Ramirez MD Primary [...] MG EC tabletIndication s:Coronary artery disease involving three affiliated coronary artery of three affiliated heart without angina pectoris Take 1 tablet [...] tablet 2017 1:49 PM EDT 8 Active Call-3 Fatty Acids (FISH OIL) 1000 MG capsule [...] (chest pain). 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 Residual bifurcation LCX/OM2 disease to be treated [...] (11/28/2017): Groin infection noted prior to planned [facility], 11/27/2017 Angina pectoris 11/27/2017 11/28/2017 Angina pectoris 11/24/2017 11/27/2017 Overview (11/24/2017): Added automatically from request for surgery [id number] Unstable angina 11/24/2017 11/30/2017 Overview (11/29/2017): Added automatically from request for surgery [id number] Coronary artery disease invo lving three affiliated coronary artery of three affiliated heart with angina pectoris 08/12/2016 11/27/2017 Overview [...] Description 02/20/2025 10:15 AM EDT Office Visit [facility] [address] [place] [address] Jl Frederick MD 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 Not on file Preferred Language Puerto Rican 01/17/2023 PHQ-2 Answer Date Recorded Retired PHQ-9: [...] Description 11/18/2025 9:15 AM EDT Office Visit [facility] [address] [facility] [address] [place] [address] William Bower MD [address] [place] [address] 07/23/2026 9:45 AM EST Office Visit [facility] [address] [place] [address] [address] [place] [address] Jl Frederick MD [address] [place] [address] Scheduled Procedures Name Priority Associated [...] WELLNESS VISIT 09/21/2016 HEMOGLOBIN A1C 06/12/2019 12/11/2018, 0 08/2017, 04/25/2016 LIPID PANEL 12/12/2019 12/11/2018, 060 08/2017, 07/26/2016, Additional history exists INFLUENZA VACCINE 01/24/2025 05/04/2024, , 03/17/2023, Additional history exists COVID-19 Vaccine ( - 2024-2 6 season) 2025 06/29/2022, 11/26/2021, 03/10/2021, Additional history exists TDAP/TD VACCINES (2 - Td or Tdap) 09/09/2030 021 Medical Devices Implanted Type Area Supervisor Agricultural Education Device Identifier Shelf Expiration Date Model / Serial / Lot Env Antibac Tyrx Neuro Abs - [id number] Implanted:Qty : 1 on 01/26/2023 by William Bower MD at [facility] Implant Left: Heart MEDTRONIC 10/21/2023 [id number] / / [id number] Hemost Abs Surgicel Fibrillar 1x2 - [id number] Implanted:Qty : 1 on 01/26/2023 by William Bower MD at [facility] Implant N/A: Chest ETHICON DIV OF J AND J 07/26/2025 1961 / / [id number] Ld Pm Solia S 60 - [id number] - [id number] Implanted:Qty : 1 on 07/26/2016 by Mehdi Richardson DO at [facility] Lead Left: Heart BIOTRONIK 05/25/2018 [id number] / [id number] / Ld Pm Solia S 53 - [id number] - [id number] Implanted:Qty : 1 on 07/26/2016 by Mehdi Richardson DO at [facility] Lead Left: Heart BIOTRONIK 04/25/2018 109089 / [id number] / Ld Pm Sentus Promri Otw Qp L85/49 - [id number] Implanted:Qty : 1 on 01/26/2023 by William Bower MD at [facility] Lead Left: Heart BIOTRONIK 03/25/2024 [id number] / / [id number] Ld Pm Solia S 53 - [id number] Implanted:Qty : 1 on 01/26/2023 by William Bower MD at [facility] Lead Left: Heart BIOTRONIK 10/23/2024 [id number] / / [id number] Gen Pm Eluna Dr T Promri - [id number] - [id number] Implanted:Qty : 1 on 07/26/2016 by Mehdi Richardson DO at [facility] Pacemaker Left: Chest BIOTRONIK 11/23/2017 961180 / [id number] / Gen Pm [id number] Hf-T Qp Study Lead - [id number] Implanted:Qty : 1 on 01/26/2023 by William Bower MD at [facility] Pacemaker Left: Heart BIOTRONIK 04/25/2024 [id number] / / [id number] Stent Absorb Gt1 Bvs Rx 6f 3x18mm - [id number] Implanted:Qty : 1 on 08/13/2016 by Joseph Wills IV, MD at [facility] Stent [employer] [id number] / / Stent Xience Alpine Trey Rx 2.58t68qt - [id number] Implanted:Qty : 1 on 08/13/2016 by Joseph Wills IV, MD at [facility] [employer] [id number] / / Stent Xience Alpine Trey Rx 2.15a74io - [id number] Implanted:Qty : 1 on 11/30/2017 by Joseph Wills IV, MD at [facility] [employer] 03/06/2020 [id number] / / [id number] Stent Xience Alpine Trey Rx 4.44d35vm - [id number] Implanted:Qty : 1 on 11/30/2017 by Joseph Wills IV, MD at [facility] [employer] 11/29/2019 [id number] / / [id number] Procedures Procedure Name Priority Date/Time Associated Diagnosis Comments REMOTE DEVICE CHECK 03/25/2025 1 2:20 AM EDT HEMOGLOBIN A1C STAT 11/26/2017 3:30 PM EDT LIPID PANEL STAT 11/26/2017 3:30 PM EDT from Last 3 Months or Most Recently Relevant to Health Maintenance Results * Remote Device Check (03/25/2025 12:20 AM EDT) Date Time Interrogation Session [id number] [facility] Type Interrogation Session RemoteScheduled [facility] Implantable Pulse Generator Supervisor Agricultural Education Biotronik [facility] Implantable Pulse Generator Type DEPENDENCY DIRECTOR-P [facility] Implantable Pulse Generator Model Edora 8 HF-T QP [facility] Implantable Pulse Generator Serial Number [id number] [facility] Implantable Pulse Generator Implant Date 20230126 [facility] Battery Remaining Percentage 80.00 % [facility] Battery Status [facility] Valerio Statistic RA Percent Paced 90.00 [facility] Valerio Statistic RV Percent Paced 99.00 [facility] DEPENDENCY DIRECTOR Statistic LV Percent Paced 99.00 [facility] DEPENDENCY DIRECTOR Statistic DEPENDENCY DIRECTOR Percent Paced 99.00 [facility] Atrial Tachy Statistic AT/AF [place] Percent 0.00 [facility] Lead Channel RA Sensing Intrinsic Amplitude 2.400 [facility] Lead Channel RA Impedance Value 546 [facility] Lead Channel RA Pacing Threshold Amplitude 1.400 [facility] Lead Channel RA Pacing Threshold Pulse Width 0.4 [facility] Lead Channel RA Measurements Date and Time 20250325 [facility] Lead Channel Setting RA Pacing Amplitude 2.000 [facility] Lead Channel Setting RA Pacing Pulse Width 0.4 [facility] Lead Channel RV Sensing Intrinsic Amplitude 15.400 [facility] Lead Channel RV Impedance Value 624 [facility] Lead Channel RV Pacing Threshold Amplitude 0.900 [facility] Lead Channel RV Pacing Threshold Pulse Width 0.4 [facility] Lead Channel RV Measurements Date and Time 20250325 [facility] Lead Channel Setting RV Pacing Amplitude 2.000 [facility] Lead Channel Setting RV Pacing Pulse Width 0.4 [facility] Lead Channel LV Sensing Intrinsic Amplitude 9.500 [facility] Lead Channel LV Impedance Value 819 [facility] LV Lead Channel Measurements Date and Time 20250325 [facility] Lead Channel Setting LV Pacing Amplitude 3.000 [facility] Lead Channel Setting LV Pacing Pulse Width 0.4 [facility] Valerio Setting Mode (NBG Code) DDD-CLS [facility] Ventricular chambers paced during DEPENDENCY DIRECTOR pacing. BiV [facility] Valerio Setting Lower Rate Limit 70 [facility] Valerio Setting AT Mode Switch Rate 160 [facility] Valerio Setting Maximum Tracking Rate 130 [facility] Valerio Setting Maximum Sensor Rate 120 [facility] Valerio Setting PAV Delay 155 [facility] Valerio Setting TONNY Delay 125 [facility] DEPENDENCY DIRECTOR LV-RV Delay 0 [facility] Lead Channel Setting RA Sensing Polarity Bipolar [facility] Lead Channel Setting RV Sensing Polarity Bipolar [facility] Lead Channel Setting LV Sensing Polarity Bipolar [facility] Lead Channel Setting RA Pacing Polarity Bipolar [facility] Lead Channel Setting RV Pacing Polarity Bipolar [facility] Lead Channel Setting LV Pacing Polarity Bipolar [facility] Lead Channel RA Pacing Threshold Polarity Bipolar [facility] Lead Channel RV Pacing Threshold Polarity Bipolar [facility] 03/25/2025 12:2 0 AM EDT William Bower MD CV IMPLANTABLE CARDIAC DEVICE Fi nal Result Performing Organization Address [facility]/ZIP Co de Phone Number [facility] * (ABNORMAL) Hemoglobin A1c (11/26/2017 3:30 PM EDT) Hemoglobin A1C 6.60(H) 4.80 - 5.60 % 11/26/2017 4:59 PM EDT [facility] Blood Venipuncture / Unknown 11/26/2017 3:30 PM EDT 11/26/2017 3:47 PM EDT [facility] - 11/26/2017 4:59 PM EDT [employer] recommends maintenance of Hemoglobin A1C at 7.0% or lower. Goals for Hemoglobin A1C reduction may need to be modified if hypoglycemia is a problem. Kyle MACKENZIE LAB BLOOD ORDERABLES Final Result Performing Organization Address [facility] Co de Phone Number [facility]
[address] [place] [address], * (ABNORMAL) Lipid Panel (11/26/2017 3:30 PM EDT) Total Cholesterol 151 0 - 200 mg/dL 11/26/2017 4:09 PM EDT [facility] Triglycerides 307(H) 0 - 150 mg/dL 11/26/2017 4:09 PM EDT [facility] HDL Cholesterol 32(L) 40 - 60 mg/dL 11/26/2017 4:09 PM EDT [facility] LDL Cholesterol 41 0 - 130 mg/dL 11/26/2017 4:09 PM EDT [facility] Blood Venipuncture / Unknown 11/26/2017 3:30 PM EDT 11/26/2017 3:47 PM EDT [facility] - 11/26/2017 4:09 PM EDT Cholesterol [...] Kyle MACKENZIE LAB BLOOD ORDERABLES Final Result [facility]
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
--- OUTSIDE RECORDS SUMMARY | 2025-05-05 08:04 | XMS_ITS | Encounter Summary ---
Author Organization [facility] Address [place] [address] Care Team Providers Care Cork Floor Installer Name Role Phone Markus Ramirez MD Primary Care Provider [phone] Reason for Referral * Consultation (Routine) - Authorized Specialty Diagnoses / Procedures Referred By Contac t Referred To Contact Nephrology Diagnoses Nonspecific abnormal results of kidney function study Hypercalcemia Markus Ramirez MD [address] [place] [address] Phone: tel: fax: [facility] [address] [place] [address] Phone: tel: fax: Referral ID Status Reason Start Date Expiration Date Visits Requested Visits Authorized [id number] Authorized Specialty Services Required 08/19/2024 02/18/2026 1 1 Encounter Details Date Type Department Care Team (Late st Contact Info) Description 08/19/2024 [facility] [address] [place] [address] Markus Ramirez MD [address] [place] [address] Nonspecific abnormal results of kidney function study [...] Hypercalcemia documented in this encounter Care Teams Cork Floor Installer Relationship Specialty Start Date End Date Mrakus Ramirez MD [address] [place] [address] PCP - General Internal Medicine 08/21/24 documented as of this encounter
--- OUTSIDE RECORDS SUMMARY | 2025-05-05 08:04 | XMS_ITS | Data Portability ---
Author Organization DEMETRIO JOANN Hunter [place] CLOSED Address [address] [place] [address] Assessment Encounter Date Assessment Date Assessment LastModified [...] placed at the time of induction. A 22-Icelandic cystoscopy sheath was introduced under direct vision [...] hours. He will follow with me in [place] in three weeks. He was placed on Bactrim Double Strength b.i.d. for one week. [email or web address] Not available 01/30/2019 15:13:00 Plan of Treatment Reminders Order Date Submit Date Provider Last Modified By Organization Details Last Modified Time Details Appointments None recorded. Lab urinalysis, dipstick, auto 2018 019 nica [facility], [address], [place], [address], 08:15:07 Referral None recorded. Procedures None recorded. Surgeries cystoscopy, with ureteroscop y, with lithotripsy (SURG) 2018 019 [email or web address] [facility], [address], [address], [place], [address], 9 17:43:29 Imaging None recorded. Medication Orders None recorded. Patient TargetsNo targets recorded. Patient Instructions Encounter Date Encounter Id Patient Instructions Last Modified By Organization Details Last Modified Time 01/23/2019 [id number] kidney stone: care instructions [email or web address] Not available 01/25/2019 08:15:07 learning about diet for kidney stone prevention [email or web address] Not available 01/25/2019 08:15:07 healthy together [email or web address] Not available 01/25/2019 08:15:07 Reason for Referral None Reported. Results Created Date Observation Date Name Description Value Unit Range Abnormal Flag Note LastModifiedBy Organization Detail LastModifiedTime 01/24/20 19 01/23/2019 urina lysis , dipst ick, auto Unknown Analyte Yellow Not Available [facility] [address] [place] [address] [address], [place], [address], 01/23/2019 16:34:35 01/24/20 19 01/23/2019 urina lysis , dipst ick, auto Unknown Analyte Clear Not Available [facility] [address], [place], [address], 01/23/2019 16:34:35 01/24/20 19 01/23/2019 urina lysis , dipst ick, auto Unknown Analyte 1.020 Not Available [facility] [address], [place], [address], 01/23/2019 16:34:35 01/24/20 19 01/23/2019 urina lysis , dipst ick, auto Unknown Analyte 1.003 - 1.035 Not Available [facility] [address], [place], [address], 01/23/2019 16:34:35 01/24/20 19 01/23/2019 urina lysis , dipst ick, auto Unknown Analyte 5.0 Not Available [facility] [address], [place], [address], 01/23/2019 16:34:35 01/24/20 19 01/23/2019 urina lysis , dipst ick, auto Unknown Analyte 5.0 - 8.0 Not Available [facility] [address], [place], [address], 01/23/2019 16:34:35 01/24/20 19 01/23/2019 urina lysis , dipst ick, auto Unknown Analyte Negati ve Not Available [facility] [address], [place], [address], 01/23/2019 16:34:35 01/24/20 19 01/23/2019 urina lysis , dipst ick, auto Unknown Analyte Negati ve Not Available [facility] [address], [place], [address], 01/23/2019 16:34:35 01/24/20 19 01/23/2019 urina lysis , dipst ick, auto Unknown Analyte Negati ve Not Available [facility] [address], [place], [address], 01/23/2019 16:34:35 01/24/20 19 01/23/2019 urina lysis , dipst ick, auto Unknown Analyte Negati ve Not Available [facility] [address], [place], [address], 01/23/2019 16:34:35 01/24/20 19 01/23/2019 urina lysis , dipst ick, auto Unknown Analyte Trace Not Available [facility] [address], [place], [address], 01/23/2019 16:34:35 01/24/20 19 01/23/2019 urina lysis , dipst ick, auto Unknown Analyte Negati ve - Trace Not Available [facility] [address], [place], [address], 01/23/2019 16:34:35 01/24/20 19 01/23/2019 urina lysis , dipst ick, auto Unknown Analyte 100 mg/dl Not Available [facility] [address], [place], [address], 01/23/2019 16:34:35 01/24/20 19 01/23/2019 urina lysis , dipst ick, auto Unknown Analyte Normal Not Available [facility] [address], [place], [address], 01/23/2019 16:34:35 01/24/2001/23/2019 urina lysis , dipst ick, auto Unknown Analyte Negati ve Not Available [facility] [address], [place], [address], 01/23/2019 16:34:35 01/24/2001/23/2019 urina lysis , dipst ick, auto Unknown Analyte Negati ve Not Available [facility] [address], [place], [address], 01/23/2019 16:34:35 01/24/20 19 01/23/2019 urina lysis , dipst ick, auto Unknown Analyte Normal Not Available [facility] [address], [place], [address], 01/23/2019 16:34:35 01/24/20 19 01/23/2019 urina lysis , dipst ick, auto Unknown Analyte Normal - 1mg/dl Not Available [facility] [address] [facility] [address], [place], [address], 01/23/2019 16:34:35 01/24/20 19 01/23/2019 urina lysis , dipst ick, auto Unknown Analyte Negati ve Not Available [facility] [address] [facility] [address], [place], [address], 01/23/2019 16:34:35 01/24/20 19 01/23/2019 urina lysis , dipst ick, auto Unknown Analyte Negati ve Not Available [facility] [address], [place], [address], 01/23/2019 16:34:35 01/24/20 19 01/23/2019 urina lysis , dipst ick, auto Unknown Analyte 250 Alex/ul Not Available [facility] [address] [facility] [address], [place], [address], 01/23/2019 16:34:35 01/24/20 19 01/23/2019 urina lysis , dipst ick, auto Unknown Analyte Negati ve Not Available [facility] [address], [place], [address], 01/23/2019 16:34:35 01/24/20 19 01/23/2019 urina lysis , dipst ick, auto Unknown Analyte Clean Catch Not Available [facility] [address], [place], [address], 01/23/2019 16:34:35 01/24/20 19 01/23/2019 urina lysis , dipst ick, auto Unknown Analyte Visual Not Available [facility] [address], [place], [address], 01/23/2019 16:34:35 01/29/20 19 01/28/2019 urina lysis , dipst ick, auto Unknown Analyte Yellow Not Available [facility] [address] [place], [address], 01/28/2019 13:48:24 01/29/20 19 01/28/2019 urina lysis , dipst ick, auto Unknown Analyte Clear Not Available [facility] [address] [place], [address], 01/28/2019 13:48:24 01/29/2001/28/2019 urina lysis , dipst ick, auto Unknown Analyte 1.010 Not Available [facility] [address] [place], [address], 01/28/2019 13:48:24 01/29/20 19 01/28/2019 urina lysis , dipst ick, auto Unknown Analyte 5.0 Not Available [facility] [address] [place], [address], 01/28/2019 13:48:24 01/29/20 19 01/28/2019 urina lysis , dipst ick, auto Unknown Analyte Negati ve Not Available [facility] Schedule [address] [place], [address], 01/28/2019 13:48:24 01/29/20 19 01/28/2019 urina lysis , dipst ick, auto Unknown Analyte Negati ve Not Available [facility] Schedule [address] [place], [address], 01/28/2019 13:48:24 01/29/20 19 01/28/2019 urina lysis , dipst ick, auto Unknown Analyte Trace Not Available [facility] Surgery Schedule [address] [place], [address], 01/28/2019 13:48:24 01/29/2001/28/2019 urina lysis , dipst ick, auto Unknown Analyte Normal Not Available [facility] [address] [place], [address], 01/28/2019 13:48:24 01/29/2001/28/2019 urina lysis , dipst ick, auto Unknown Analyte Negati ve Not Available [facility] Schedule [address] [place], [address], 01/28/2019 13:48:24 01/29/2001/28/2019 urina lysis , dipst ick, auto Unknown Analyte Normal Not Available [facility] [address] [place], [address], 01/28/2019 13:48:24 01/29/2001/28/2019 urina lysis , dipst ick, auto Unknown Analyte Negati ve Not Available [facility] Surgery Schedule [facility] [place], [address], 01/28/2019 13:48:24 01/29/2001/28/2019 urina lysis , dipst ick, auto Unknown Analyte 50 Alex/ul Not Available [facility] Schedule [address] [place], [address], 01/28/2019 13:48:24 01/29/20 19 01/28/2019 urina lysis , dipst ick, auto Unknown Analyte Clean Catch Not Available [facility] Surgery Schedule [address] [place], [address], 01/28/2019 13:48:24 01/29/20 19 01/28/2019 urina lysis , dipst ick, auto Unknown Analyte Automa temi Not Available [facility] Schedule [address] [place], [address], 01/28/2019 13:48:24 Result Notes None recorded. Procedures Surgical History Date Name Laterality Status Provider Name and Address Organization Details Recorded Time Back Surgery completed [facility] 01/23/2019 16:31:30 AAA Repair completed [facility] 01/23/2019 16:32:08 Imaging Results None recorded. Procedure Notes None recorded. Medical Equipment None Reported. Allergies Allergen ID Allergen Name Allergen Category Reaction Reaction Severity Criticality Documentation Date Start Date Code Code System Note Provider Name and Address Organization Details Recorded Time 967852 Product containin g penicilli n (product) medicatio n Not available Not available Not available 01/23/2019 25894 8001 SNOMED Ruthy Calloway [facility] 9 16:27:14 401084 Plavix medicatio n Not available Not available Not available 01/23/2019 31077 2 RxNorm Ruthy Rutherfor d [facility] 9 16:27:21 020259 Lipitor medicatio n Not available Not available Not available 01/23/2019 23982 5 RxNorm Ruthy Rutherfor d [facility] 9 16:27:27 Medications Name Sig Start Date [...] 30 Not Available Not Available Not Available [place] 7.5 mg-325 mg tablet Take 1 tablet [...] index (BMI) Body weight Heart rate Systolic And Diastolic Provider Name and Address Organization Details Last Updated DateTime 01/23/2019 180.34 cm 30 kg/m2 85476.36 g 67 /min 136/79 mm[Hg] Ruthy Lindsayford [facility] 9 16:27:00 Social History Question Answer Notes LastModified by Organizat ion Details LastModified Time Tobacco Smoking Status Former Smoker Ruthyemma Lindsayford [facility] 01/23/2019 16:31:08 How Much Tobacco Do [...] Not available 16:30:58 Medical History Condition Response Diabetes Y Kidney Stones Y Chronic Obstructive Pulmonary Disease Y Heart Arrhythmia Y Heart Attack (AL) Y Heart Disease Y Hypertension Y Kidney Disease Y Past Encounters Encounter ID Performer Location Encounter Start Date Encounter Closed Date Diagnosis/Indication Diagnosis SNOMED-CT Code Diagnosis ICD10 Code Diagnosis IMO Codes Diagnosis Note [id number] JAQUAN JOHNSON MD [facility] [address] [place] [address] 01/23/2019 14:50:14 01/25/2019 10:49:09 Kidney stone 61078709 N20.0 plan as above [id number] JAQUAN JOHNSON MD SURGERY SCHEDULE [address] [place] [address] 01/28/2019 06:25:22 01/28/2019 06:25:40 Health Concerns Section Related Observation LastModified by Organization Detai ls LastModified Time None Recorded Concern Status LastModified by Organization Details LastModified Time None Recorded Advance Directives Directive None Recorded Payers Insurance Date Sequence Insurance Name Policy Number Policy Berg Covered Member ID Berg Member ID Guarantor Name 05/20/2020 1 [place] Kory Ny [id number] [place] 05/20/2020 2 [place] [id number] Kory Ny [id number] K[place] Notes Date Note Type Note Provider Name and Address Organization Details Recorded Time 01/23/2019 text/html patient was referred for hematuria and left-sided renal calculus. He [...] hematuria. I typically have seen him in [place]. It is been several years since his last visit. 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 I suggest we addressed this ureteroscopically using the laser in hopes to minimize parenchymal trauma. We discussed the procedure in detail including risk of retained stone fragments requiring other intervention. He understands and wishes to proceed. JAQUAN JOHNSON MD [facility] [facility], [place], [address], [facility] 01/25/2019 08:15:34
--- OUTSIDE RECORDS SUMMARY | 2025-05-05 08:05 | XMS_ITS | Data Portability ---
Author Organization [facility] Address [address] [place] [address] Assessment No assessment recorded. Plan of Treatment Reminders Order Date Submit Date Provider Last Modified By Organization Details Last Modified Time Details Appointments None recorded. Lab None recorded. Referral None recorded. Procedures None recorded. Surgeries None recorded. Imaging None recorded. Medication Orders cephalexin 500 mg capsule 2021 022 [facility], [address] [place] [address], [place], [id number], 17:21:18 Patient TargetsNo targets recorded. Patient Instructions Encounter Date Encounter Id Patient Instructions Last Modified By Organization Details Last Modified Time 03/30/2022 [id number] Path pending at time of suture removal. Will call with those results and follow up. [facility] Not available 04/05/2022 12:13:39 Reason for Referral None Reported. Results Created Date Observation Date Name Description Value Unit Range Abnormal Flag Note LastModifiedBy Organization Detail LastModifiedTime Result Notes None recorded. Problems Name Problem SNOMED Code Status Onset Date Resolution Date Notes Provider Name and Address Organization Details Recorded Time Lesion of skin of left ear 47400742353054068 Active Nereida Garcia priya, [facility] & [place] 16:17:53 Problem Notes None recorded. Procedures Surgical History Date Name Laterality Status Provider Name and Address Organization Details Recorded Time 03/22/20 22 Excision of lesion with (simple, intermediate layered, complex layered) closure completed Svetlana Hinojosa MD [address], [place], [address], [facility] [place] 03/25/2022 10:17:01 Imaging Results None recorded. Procedure Notes None recorded. Medical Equipment None Reported. Allergies Allergen ID Allergen Name Allergen Category Reaction Reaction Severity Criticality Documentation Date Start Date Code Code System Note Provider Name and Address Organization Details Recorded Time 6973 lisinopri l medicatio n Not available Not available Not available 03/04/2022 53157 RxNorm DEMETRIO Smith [facility] & [place] 2 16:17:52 6974 atorvasta tin medicatio n Not available Not available Not available 03/04/2022 49816 RxNorm 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 Lesion of skin of left ear 0424051786 6248789 H93.8X2 I discussed the pathology with patient [...] [place] [id number] Kory Ny [id number] [place] 04/23/2022 2 [place] [id number] [place] [id number] [place] 03/04/2022 1 [place] [id number] [place] 03/29/2022 1 [place] [id number] [place] Notes Date Note Type Note Provider Name and Address Organization Details Recorded Time 03/30/2022 text/html Patient returns to the office today for suture removal. Svetlana Hinojosa MD [address], [place], [address], [facility] 04/05/2022 12:13:52 04/05/2022 text/html ROS as noted in the HPI Patient returns to the office today for suture removal.04/05/22- Patient returns to the office today to follow up on his wet to dry dressings of his surgical wound. He had a post-auricular excision with sutures removed 7 days later. Then 2 days last he had dehiscnece of his wound and has been doing damp to dry dressings. Svetlana Hinojosa MD [address], [place], [address], [facility] 04/06/2022 10:58:32
[2025-05-05 09:01] LABS: Bilirubin,Urine Negative (Negative); Color,Urine YELLOW (Yellow); Glucose,Urine (UA) 3+ (Negative); Ketones,Urine Negative (Negative); Leukocyte Esterase,Urine Negative (Negative); PH,Urine 6.0 (5.0-8.5); Protein,Urine 1+ (Negative); Specific Gravity, Urine 1.015 (1.005-1.030); Urobilinogen,Urine 0.2 EU/dl (0.2)
[2025-05-05 09:11] LABS: Albumin Level 5.1 g/dl (3.5-5.0); Anion Gap 15.5 mEq/L (5-15); Blood Urea Nitrogen 32 mg/dl (9-20); Calcium 9.7 mg/dl (8.4-10.2); Carbon Dioxide 23 mmol/L (22.0-30.0); Chloride 104 mmol/L (98-107); Creatinine,Serum 2.60 mg/dl (0.66-1.25); Estimated Glomerular Filt Rate 23 ml/min (>60); GFR (African American) 28 ML/MIN (>60); Glucose 147 mg/dl (74-100); Phosphorous 4.2 mg/dl (2.5-4.5); Potassium 4.5 mmoL/L (3.5-5.1); Sodium 138 mmol/L (136-145)
[2025-05-05 11:03] LABS: Bacteria,Urine Trace /lpf; Squamous Epithelial Cell,Urine Occasional #/hpf (0-5)
== END 2025-05-05 23:59 | disposition home or self-care (01) ==
LOC: LAB 07:59
PROVIDERS: PCP Internal Medicine Adolescent Medicine; Visit Provider Internal Medicine Nephrology
DX: N18.30 Chronic kidney disease, stage 3 unspecified (principal)
CPT/HCPCS: 36415; 80069; 81001; 82570; 84156